=== PATIENT | male | born 1955 | race Caucasian/White ===

== ENCOUNTER 2018-10-21 00:33 | Emergency (ER) | payer OTHER ==
[2018-10-21] MEDS ORDERED: LIDOCAINE 2% W/EPI 1:200,000 MPF 20 ML VIAL IM ONE (01:14)
[2018-10-21] MEDS ORDERED: BUPIVACAINE 0.5% PF 10 ML VIAL ONE (01:14)
--- NOTE | 2018-10-21 03:29 | EDPHYS ---
Physician Documentation [facility] Name: Ovidio Echols Age: 63 yrs Sex: Male : 1955 Arrival Date: 10/21/2018 Time: 00:37 Bed 3 Private MD: LEONIDES TRAN ED Physician Wilfred Sanchez HPI: 10/21 01:15 This 63 yrs old Male presents to ER via Wheelchair with complaints of Head cp Injury With LOC-Adult. 01:15 The patient or guardian reports injury, a laceration, irregular. The complaints affect cp the top of head. Context of injury: The problem was sustained at home, resulted from a fall, from a standing position. Onset: The symptoms/episode began/occurred just prior to arrival. Associated signs and symptoms: Loss of consciousness: This patient experience a loss of consciousness, that was brief. Historical: - Allergies: 00:50 No Known Allergies; bb - Home Meds: 00:50 Lisinopril Oral [Active]; carvedilol oral oral [Active]; amlodipine oral [Active]; bb Flomax Oral [Active]; - PMHx: 00:50 Hypertension; CVA; BPH; bb - PSHx: 00:50 tumor removal; bb - Immunization history: Last tetanus immunization: unknown. - Social history:: Smoking status: Patient/guardian denies using tobacco. - Ebola Screening: : No symptoms or risks identified at this time. ROS: 01:20 Constitutional: Negative for body aches, chills, fever, poor PO intake. cp 01:20 Cardiovascular: Negative for chest pain. cp 01:20 Respiratory: Negative for cough, shortness of breath, wheezing. 01:20 Abdomen/GI: Negative for abdominal pain, vomiting. 01:20 Back: Negative for pain at rest, pain with movement. 01:20 Skin: Positive for laceration(s), of the face and scalp. 01:20 Neuro: Positive for loss of consciousness, Negative for altered mental status. 01:20 All other systems are negative. Exam: 01:30 Constitutional: The patient appears in no acute distress, alert, awake, cp non-diaphoretic, well developed, well nourished. 01:30 Head/face: Noted is a laceration(s), that is deep, that is linear, of the left frontal cp area and above and below right eye, swelling, that is mild, of the below right eye. 01:30 Eyes: Pupils: equal, round, and reactive to light and accomodation, Conjunctiva: normal. 01:30 ENT: External ear(s): are unremarkable, Ear canal(s): are normal, clear, TM's: dullness, bilaterally, Nose: abrasion, that is superficial, on the bridge of nose, bleeding, is not appreciated, Mouth: Lips: moist, Oral mucosa: moist, Posterior pharynx: Airway: no evidence of obstruction, patent. 01:30 Neck: C-spine: vertebral tenderness, is not appreciated, crepitus, is not appreciated, ROM/movement: is normal, is supple, without pain, no range of motions limitations, no nuchal rigidity. 01:30 Chest/axilla: Inspection: normal, Palpation: is normal, no crepitus, no tenderness. 01:30 Cardiovascular: Rate: bradycardic, Rhythm: regular. 01:30 Respiratory: the patient does not display signs of respiratory distress, Respirations: normal. 01:30 Abdomen/GI: Inspection: abdomen appears normal, Palpation: abdomen is soft and cp non-tender, in all quadrants. 01:30 Back: pain, is absent, ROM is normal. cp 01:30 Musculoskeletal/extremity: Exam is negative for decreased range of motion, deformity, injury. 01:30 Neuro: Orientation: no acute changes, per family, Mentation: no acute changes, per family. Vital Signs: 00:44 BP 169 / 103; Pulse 75; Resp 16 S; Temp 97.9(O); Pulse Ox 97% on R/A; Weight 113.4 kg bb (R); Height 6 ft. 0 in. (182.88 cm) (R); Pain 9/10; 01:30 BP 122 / 90; Pulse 59; Resp 17 S; Pulse Ox 95% on R/A; jd3 03:52 BP 140 / 96; Pulse 67; Resp 17 S; Pulse Ox 96% on R/A; jd3 00:44 Body Mass Index 33.91 (113.40 kg, 182.88 cm) bb Jesus Coma Score: 00:44 Eye Response: spontaneous(4). Verbal Response: oriented(5). Motor Response: obeys bb commands(6). Total: 15. 01:15 Eye Response: spontaneous(4). Verbal Response: oriented(5). Motor Response: obeys cp commands(6). Total: 15. 01:30 Eye Response: spontaneous(4). Verbal Response: oriented(5). Motor Response: obeys cp commands(6). Total: 15. Trauma Score (Adult): 00:44 Eye Response: spontaneous(1); Verbal Response: oriented(1); Motor Response: obeys bb commands(2); Systolic BP: > 89 mm Hg(4); Respiratory Rate: 10 to 29 per min(4); Bristol Score: 15; Trauma Score: 12 Laceration: 03:30 Wound Repair of 11cm ( 4.3in ) subcutaneous laceration to scalp. Linear shaped.. Distal cp neuro/vascular/tendon intact. Anesthesia: Local anesthetic administered with 10 mls of 2% lidocaine. Wound prep: Wound irrigation by me. Skin closed with 17 1-0 [place] using staple gun. Dressed with Bacitracin, 4x4's, Kerlix. Patient tolerated well. 03:30 Wound Repair of 7cm ( 2.8in ) subcutaneous laceration to above and below right eye. cp Irregularly shaped.. Distal neuro/vascular/tendon intact. Anesthesia: Wound infiltrated with 5 mls of 2% lidocaine. Wound prep: Simple cleansing by me. Skin closed with 14 5-0 Prolene using interrupted sutures and sterile technique. Dressed with Bacitracin. Patient tolerated well. MDM: 01:16 Patient medically screened. cp 01:30 Differential diagnosis: Contusion of head, face, Hematoma on head, face, Laceration of cp scalp, face, Intracranial bleed- Concussion cerebral contusion. 03:28 Data reviewed: vital signs, nurses notes, radiologic studies, CT scan, and as a result, cp I will discharge patient. 03:28 Counseling: I had a detailed discussion with the patient and/or guardian regarding: the cp historical points, exam findings, and any diagnostic results supporting the discharge/admit diagnosis, radiology results, the need for outpatient follow up, a family practitioner, to return to the emergency department if symptoms worsen or persist or if there are any questions or concerns that arise at home. Response to treatment: the patient's symptoms have markedly improved after treatment, and as a result, I will discharge patient. Special discussion: Based on the patient's history, exam and DX evaluation, there is no indication for emergent intervention or inpatient TX. It is understood by the patient/guardian that if the SXs persist or worsen they need to return immediately for re-evaluation. 10/21 00:58 Order name: CT Head C Spine cp 10/21 01:09 Order name: CT Facial Bones W/O Con rv 10/21 03:25 Order name: Wound dressing; Complete Time: 03:36 cp Administered Medications: 03:36 Drug: Hydrocodone-Acetaminophen (7.5 mg-325 mg) 1 tabs Route: PO; jd3 03:52 Follow up: Response: Medication administered at discharge. jd3 Disposition: 04:00 Chart complete. cp 05:57 Co-signature as Attending Physician, Wilfred Sanchez MD I agree with the assessment and kdr plan of care. Disposition: 10/21/18 03:28 Discharged to Home. Impression: Fall on same level from slipping, tripping and stumbling, Laceration without foreign body of scalp, Laceration without foreign body of other part of head - above and below right eye. - Condition is Stable. - Discharge Instructions: Head Injury, Adult, Laceration Care, Adult, Stitches, [place], or Adhesive Wound Closure. - Prescriptions for Keflex 500 mg Oral Capsule - take 1 capsule by ORAL route every 8 hours for 10 days; 30 capsule. - Medication Reconciliation Form, Thank You Letter, Antibiotic Education, Prescription Opioid Use form. - Follow up: Private Physician; When: 1 week; Reason: Staple/Suture removal. - Problem is new. - Symptoms have improved. Signatures: Dispatcher [employer] EDMS Wilfred Sanchez MD MD [facility] Jacquie Mora RN RN Dimitrios Mckay PA PA cp Davies, Jonathon, RN RN jd3 Corrections: (The following items were deleted from the chart) 03:55 03:28 10/21/2018 03:28 Discharged to Home. Impression: Fall on same level from jd3 slipping, tripping and stumbling; Laceration without foreign body of scalp; Laceration without foreign body of other part of head - above and below right eye. Condition is Stable. Forms are Medication Reconciliation Form, Thank You Letter, Antibiotic Education, Prescription Opioid Use. Follow up: Private Physician; When: 1 week; Reason: Staple/Suture removal. Problem is new. Symptoms have improved. cp
--- NOTE | 2018-10-21 03:29 | ER ---
Nurse's Notes [facility] Name: Ovidio Echols Age: 63 yrs Sex: Male : 1955 Arrival Date: 10/21/2018 Time: 00:37 Bed 3 Private MD: LEONIDES TRAN Diagnosis: Fall on same level from slipping, tripping and stumbling;Laceration without foreign body of scalp;Laceration without foreign body of other part of head-above and below right eye Presentation: 10/21 00:44 Presenting complaint: Patient states: he was in the bathroom and fell hitting his head bb and passed out for a few minutes. Care prior to arrival: None. Mechanism of Injury: Fall from standing position. Trauma event details: Injury occurred in the [facility], Injury occurred: at home. Injury occurred: October 21, 2018. 00:44 Acuity: MERA 2 bb 00:44 Method Of Arrival: Wheelchair bb 00:48 Transition of care: patient was not received from another setting of care. Onset of bb symptoms was October 21, 2018. Risk Assessment: Do you want to hurt yourself or someone else? Patient reports no desire to harm self or others. Initial Sepsis Screen: Does the patient meet any 2 criteria? No. Patient's initial sepsis screen is negative. Does the patient have a suspected source of infection? No. Patient's initial sepsis screen is negative. Trauma Activation: Alert Physician: ED Physician; Name: Laura; Notified At: 00:36; Arrived At: 00:36 Physician: General Surgeon; Name: ; Notified At: 00:36; Arrived At: Physician: Radiology; Name: Kami; Notified At: 00:36; Arrived At: 00:36 Physician: Respiratory; Name: ; Notified At: 00:36; Arrived At: Physician: Lab; Name: ; Notified At: 00:36; Arrived At: Historical: - Allergies: 00:50 No Known Allergies; bb - Home Meds: 00:50 Lisinopril Oral [Active]; carvedilol oral oral [Active]; amlodipine oral [Active]; bb Flomax Oral [Active]; - PMHx: 00:50 Hypertension; CVA; BPH; bb - PSHx: 00:50 tumor removal; bb - Immunization history: Last tetanus immunization: unknown. - Social history:: Smoking status: Patient/guardian denies using tobacco. - Ebola Screening: : No symptoms or risks identified at this time. Screenin:44 Abuse screen: Denies threats or abuse. Tuberculosis screening: No symptoms or risk bb factors identified. 00:51 Nutritional screening: No deficits noted. Fall Risk Fall in past 12 months (25 points). bb Secondary diagnosis (15 points) CVA, IV access (20 points). Ambulatory Aid- None/Bed Rest/Nurse Assist (0 pts). Gait- Impaired (20 pts.). Mental Status- Overestimates/Forgets Limitations (15 pts.). Total Amato Fall Scale indicates High Risk Score (45 or more points). Fall prevention measures have been instituted. Side Rails Up X 2 Placed Close to Nursing Station Family Present and informed to notify staff if the need to leave the bedside As available patient and family educated on Fall Prevention Program and Strategies. Primary Survey: 00:53 NO uncontrolled hemorrhage observed. A: The patient is alert. Airway: patent, No jd3 supplemental oxygen in use on arrival. Oral cavity: clear, Trachea midline. Breathing/Chest: Respiratory pattern: regular, Respiratory effort: spontaneous, unlabored, Breath sounds: clear, bilaterally. Chest inspection: symmetrical rise and fall of the chest. Circulation: Heart tones present. Pulses: palpable right radial artery and left radial artery. Skin color: pink, Skin temperature: warm. Disability Alert. Exposure/Environment: All clothing and personal items were removed. Forensic evidence collection is not deemed to be indicated at this time. Items placed in patient belonging bag. There is evidence of uncontrolled external hemorrhage. Provider notified immediately. Methods to control bleeding applied. Obvious injury(ies) are noted at this time: laceration noted to top of head and above right eye. hematoma noted to under right eye and top of head. A warming method has been applied: A warm blanket has been provided to the patient. 01:50 Reassessment Airway Airway Patent Oxygen No O2 Breathing/Chest Respiratory pattern jd3 Regular Respiratory effort Spontaneous Unlabored Chest inspection Symmetrical Circulation Pulses Palpable Color [place] Temperature Warm Disability Alert. Secondary Survey: 00:55 HEENT: Head Other laceration noted to top of head and above right eye. hematoma noted jd3 below right eye and on top of head. Gastrointestinal: Abdomen is soft, Bowel sounds present in all quadrants. Palpation No deficit noted. : No signs and/or symptoms were reported regarding the genitourinary system. Musculoskeletal: Circulation, motion, and sensation intact. Range of motion: intact in all extremities. Assessment: 00:45 General: Appears in no apparent distress. uncomfortable, Behavior is calm, cooperative, jd3 appropriate for age. Pain: Complains of pain in head Quality of pain is described as pressure, tender, throbbing. Neuro: Level of Consciousness is awake, alert, obeys commands, Oriented to person, place, time, situation, Reports headache a syncopal episode. Cardiovascular: Denies chest pain, shortness of breath, Heart tones S1 S2 present Capillary refill < 3 seconds Patient's skin is warm and dry. Respiratory: Airway is patent Respiratory effort is even, unlabored, Respiratory pattern is regular, symmetrical, Breath sounds are clear bilaterally. Denies cough, shortness of breath. GI: No signs and/or symptoms were reported involving the gastrointestinal system. Abdomen is round non-distended, Bowel sounds present X 4 quads. Abd is soft and non tender X 4 quads. Patient currently denies diarrhea, nausea, vomiting. : No signs and/or symptoms were reported regarding the genitourinary system. EENT: No signs and/or symptoms were reported regarding the EENT system. Derm: Skin is intact, Skin is dry, Skin is normal, Skin temperature is warm Wound noted left frontal area Wound is laceration about 10-15 cm in length to the top left side of head, open, moderate amount of bleeding. laceration about 5 cm above the right eye, with small amount of bleeding. hematoma noted under right eye. hematoma noted to the top left side of head. Musculoskeletal: Circulation, motion, and sensation intact. Range of motion: intact in all extremities. 01:40 Reassessment: Patient appears in no apparent distress at this time. No changes from jd3 previously documented assessment. Patient and/or family updated on plan of care and expected duration. Pain level reassessed. Patient is alert, oriented x 3, equal unlabored respirations, skin warm/dry/pink. 02:30 Reassessment: Patient appears in no apparent distress at this time. Patient and/or jd3 family updated on plan of care and expected duration. Pain level reassessed. Patient is alert, oriented x 3, equal unlabored respirations, skin warm/dry/pink. provider at bedside suturing and stapling. 03:49 Reassessment: Patient appears in no apparent distress at this time. Patient and/or jd3 family updated on plan of care and expected duration. Pain level reassessed. Patient is alert, oriented x 3, equal unlabored respirations, skin warm/dry/pink. reported understanding of discharge instructions. assisted pt to lobby with wheelchair to wait for ride. Patient states feeling better. Vital Signs: 00:44 BP 169 / 103; Pulse 75; Resp 16 S; Temp 97.9(O); Pulse Ox 97% on R/A; Weight 113.4 kg bb (R); Height 6 ft. 0 in. (182.88 cm) (R); Pain 9/10; 01:30 BP 122 / 90; Pulse 59; Resp 17 S; Pulse Ox 95% on R/A; jd3 03:52 BP 140 / 96; Pulse 67; Resp 17 S; Pulse Ox 96% on R/A; jd3 00:44 Body Mass Index 33.91 (113.40 kg, 182.88 cm) bb Union Coma Score: 00:44 Eye Response: spontaneous(4). Verbal Response: oriented(5). Motor Response: obeys bb commands(6). Total: 15. 01:15 Eye Response: spontaneous(4). Verbal Response: oriented(5). Motor Response: obeys cp commands(6). Total: 15. 01:30 Eye Response: spontaneous(4). Verbal Response: oriented(5). Motor Response: obeys cp commands(6). Total: 15. Trauma Score (Adult): 00:44 Eye Response: spontaneous(1); Verbal Response: oriented(1); Motor Response: obeys bb commands(2); Systolic BP: > 89 mm Hg(4); Respiratory Rate: 10 to 29 per min(4); Union Score: 15; Trauma Score: 12 ED Course: 00:37 Patient arrived in ED. am2 00:38 LEONIDES TRAN is Private Physician. am2 00:42 Kraig Sen RN is Primary Nurse. rv 00:44 Patient has correct armband on for positive identification. Placed in gown. Bed in low bb position. Call light in reach. Side rails up X2. Adult w/ patient. Patient maintains SpO2 saturation greater than 95% on room air. Family accompanied patient. 00:44 Patient maintains SpO2 saturation greater than 95% on room air. bb 00:46 Triage completed. bb 00:48 Dimitrios Hull PA is PHCP. cp 00:48 Wilfred Sanchez MD is Attending Physician. cp 00:50 Arm band placed on Patient placed in an exam room, on a stretcher, on pulse oximetry. bb 00:56 Thermoregulation: warm blanket given to patient. jd3 01:00 Inserted saline lock: 18 gauge in right forearm, using aseptic technique. Blood rv collected. 02:08 CT Head C Spine In Process Unspecified. EDMS 02:08 CT Facial Bones W/O Con In Process Unspecified. EDMS 02:30 Assist provider with laceration repair on top of head that was between 12.6 to 20 cm jd3 using mary. Set up tray. Performed by Dimitrios VELÁSQUEZ Dressed with 4X4s, Kerlix, Patient tolerated well. 02:30 Assist provider with laceration repair on right eye that was between 7.6 to 12.5 cm jd3 using sutures. Set up tray. Performed by Dimitrios VELÁSQUEZ Dressed with band aid, Patient tolerated well. 03:48 IV discontinued, intact, bleeding controlled, No redness/swelling at site. Pressure jd3 dressing applied. Administered Medications: 03:36 Drug: Hydrocodone-Acetaminophen (7.5 mg-325 mg) 1 tabs Route: PO; jd3 03:52 Follow up: Response: Medication administered at discharge. jd3 Intake: 00:44 PO: 0ml; Total: 0ml. bb Outcome: 03:28 Discharge ordered by . cp 03:48 Discharged to home via wheelchair, with family. jd3 03:48 Condition: stable 03:48 Discharge instructions given to patient, family, Instructed on discharge instructions, follow up and referral plans. medication usage, Demonstrated understanding of instructions, follow-up care, medications, Prescriptions given X 1. 03:49 Patient's length of stay in the Emergency Department was greater than 2 hours. waiting jd3 for results.Patient's length of stay extended due to 03:55 Patient left the ED. jd3 Signatures: Dispatcher [employer] EDJacquie Aranda RN RN Dimitrios Mckay PA PA cp Moreno, Amanda am2 Davies, Jonathon, RN RN jKraig Barillas RN RN rv Corrections: (The following items were deleted from the chart) 03:55 03:48 No provider procedures requiring assistance completed. jd3 jd3
[2018-10-21] MEDS ORDERED: HYDROCODONE/APAP 7.5/325 MG TAB ONE (03:49)
[2018-10-21 04:15] VITALS: TEMP 97.9
[2018-10-21 04:18] VITALS: BP 140/96; O2SAT 96
--- NOTE | 2018-10-23 11:55 | RAD REPORT ---
EXAM DESCRIPTION: CT - Head C Spine Mpr Wo Con - 10/21/2018 3:36 am CLINICAL HISTORY: The patient is 63 years old and is Male; fall, scalp laceration TECHNIQUE: Axial computed tomography images of the head/brain and cervical spine without intravenous contrast. Sagittal and coronal reformatted images were created and reviewed. This CT exam was pe rformed using one or more of the following dose reduction techniques: automated exposure control, a djustment of the mA and/or kV according to patient size, and/or use of iterative reconstruction techn ique. COMPARISON: No relevant prior studies available. FINDINGS: BRAIN: There is diffuse cerebral atrophy present, consistent with this patient's age. There is patchy hypoattenuation of the deep white matter which is non-specific, but most likely owing to chronic small vessel ischemic change in a patient of this age group. No intracranial hemorrhage , mass effect, or midline shift is seen. There are no extra-axial fluid collections. VENTRICLES: There is diffuse prominence of the ventricles, which is likely related to central at rophy. SKULL: No acute fracture. SINUSES: Unremarkable as visualized. No acute sinusitis. MASTOID AIR CELLS: Unremarkable as visualized. No mastoid effusion. VERTEBRAE: The vertebral body heights and alignment are maintained. No acute fracture. DISCS/SPINAL CANAL/NEURAL FORAMINA: There is multi-level intervertebral disc height loss. There are disc-osteophyte complexes at several levels, with associated mild spinal canal narrowing. There i s also facet hypertrophy and uncovertebral joint osteophytosis, with associated multilevel neural for aminal narrowing. SOFT TISSUES: Bifrontal scalp laceration/soft tissue swelling is present. LUNG APICES: The lung apices are clear. IMPRESSION: 1. No acute intracranial findings. 2. Spondylosis of the cervical spine without acute findings. Electronically signed by: Ade Sher MD 10/21/2018 2:27 AM CDT Due to temporary technical issues with the PACS/Fluency reporting system, reports are being signed by the in house radiologist as a courtesy to ensure prompt reporting. The interpreting radiologist is f ully responsible for the content of the report.
--- NOTE | 2018-10-23 11:55 | RAD REPORT ---
EXAM DESCRIPTION: CT - Facial Bones W/ Mpr - 10/21/2018 3:37 am CLINICAL HISTORY: The patient is 63 years old and is Male; TRAUMA TECHNIQUE: Axial computed tomography images of the face without intravenous contrast. Sagittal and coronal reformatted images were created and reviewed. This CT exam was performed using one or more of the following dose reduction techniques: automated exposure control, adjustment of the mA and/o r kV according to patient size, and/or use of iterative reconstruction technique. COMPARISON: No relevant prior studies available. FINDINGS: BONES/JOINTS: The orbital floors and ramirez are intact. The zygomatic arches and pteryg oid plates are intact. The visualized maxilla and mandible are intact. SOFT TISSUES: Right frontal scalp laceration is present. ORBITS: The globes, extraocular muscles, and optic nerve complexes are within normal limits. SINUSES: Left maxillary sinus mucus retention cyst is present. The visualized paranasal sinuse s are otherwise clear. No air-fluid levels. NASAL CAVITY/SEPTUM: The nasal bones are intact. IMPRESSION: Minimal right frontal scalp laceration without underlying acute bony abnormality. Electronically signed by: Ade Sher MD 10/21/2018 2:24 AM CDT Due to temporary technical issues with the PACS/Fluency reporting system, reports are being signed by the in house radiologist as a courtesy to ensure prompt reporting. The interpreting radiologist is f ully responsible for the content of the report.
== END 2018-10-21 03:55 | disposition home or self-care (01) ==
LOC: ER 00:33
PROC: 0JQ00ZZ Repair Scalp Subcutaneous Tissue and Fascia, Open Approach (ICD-10-PCS; principal; 2018-10-21)
PROC: 0JQ10ZZ Repair Face Subcutaneous Tissue and Fascia, Open Approach (ICD-10-PCS; 2018-10-21)
DX: S01.01XA Laceration without foreign body of scalp, initial encounter (principal); S01.81XA Laceration without foreign body of other part of head, initial encounter; W01.0XXA Fall on same level from slipping, tripping and stumbling without subsequent striking against object, initial encounter; Y93.89 Activity, other specified; Y92.009 Unspecified place in unspecified non-institutional (private) residence as the place of occurrence of the external cause; I10 Essential (primary) hypertension
CPT/HCPCS: 70450; 70486; 72125; 76377; 82962; 99284

== ENCOUNTER 2020-11-04 15:18 | Emergency (ER) | payer OTHER ==
--- OUTSIDE RECORDS SUMMARY | 2020-11-04 15:20 | XMS REPORT | Continuity of Care Document ---
:[address] [facility] t Address [address] [place] [address] Care Team Providers Name Role Phone Emmanuel MEDINA, Marguerite Attending Clinician Doctor Unassigned, Name Attending Clinician Unavailable Problems This patient has no known problems. Allergies, Adverse Reactions, Alerts This patient has no known allergies or adverse reactions. Medications This patient has no known medications. Procedures This patient has no known procedures. Encounters Start End Encounter Admission Attending Care Care Encounter Source Date/Time Date/Time Type Type Clinicians Facility Department ID 2020-11-04 2020-11-04 Telephone WILL Benitez [id number] 00:00:00 00:00:00 [facility] [id number] [place] [id number] [facility] [phone] nal 0[address] One 2020-09-26 2020-09-26 Telephone WILL Benitez [id number] 00:00:00 00:00:00 [facility] [id number] [place] [id number] Professio [phone] nal 044 [address] 2020-09-15 2020-09-15 Case WILL Benitez [id number] 00:00:00 00:00:00 Management [facility] [id number] [place] [id number] [facility] [phone] nal 044 [address] One 2020-09-10 2020-09-10 Orders Doctor NAVEEN [id number] 00:00:00 00:00:00 Only Unassigned, ASOT[place] [id number] [place] [id number] [id number] 2020-09-02 2020-09-02 Office WILL Benitez [id number] 09:24:19 [facility]:06:[facility] [employer] [id number] [place] [id number] [place] [phone] nal 044 [address] One Results This patient has no known results.
--- NOTE | 2020-11-04 15:57 | RAD REPORT ---
EXAM DESCRIPTION: CT - Head Brain Wo Cont - 11/04/2020 3:44 pm CLINICAL HISTORY: Dizziness COMPARISON: 2019 TECHNIQUE: Computed axial tomography of the head was obtained. IV contrast was not requested. All CT scans are performed using dose optimization technique as appropriate and may include automated exposure control or mA/KV adjustment according to patient size. FINDINGS: An intracranial bleed is not seen . The ventricles are normal in caliber. No extra-axial fluid collection is noted. Small old right thalamus lacunar infarction. Moderate to marked low-density areas within periventricular, deep and subcortical white matter likely represent ischemic changes secondary to small vessel disease. Fluid within the sinuses/ mastoids is not seen. IMPRESSION: No acute intracranial abnormality is seen. If patient's symptoms persist MRI of the bra in would be recommended.
[2020-11-04 17:17] LABS: Basophils % 0.9 % (0-1.3); Hematocrit 30.6 % (39.6-49.0); Lymphocytes % 32.2 % (15.3-44.8); MPV 8.5 fL (7.6-11.3); RBC Red Blood Cell Count 4.29 M/uL (4.33-5.43)
[2020-11-04 17:20] LABS: Protime INR 1.1
[2020-11-04] MEDS ORDERED: ASPIRIN 81 MG CHEWABLE TABLET ONE (17:30)
[2020-11-04] MEDS ORDERED: NA CHLORIDE 0.9% 1,000 ML ONE (17:31)
[2020-11-04] MEDS ORDERED: FOLIC ACID 5 MG/ML VIAL ONE (17:31)
[2020-11-04 17:37] LABS: ALT/SGPT 31 U/L (12-78); AST/SGOT 19 U/L (15-37); Albumin 3.7 g/dL (3.4-5.0); Alkaline Phosphatase 69 U/L (45-117); BUN Blood Urea Nitrogen 12 mg/dL (7-18); Bicarbonate 28 mmol/L (21-32); Bilirubin Direct 0.1 mg/dL (0-0.2); Bilirubin Total 0.5 mg/dL (0.2-1.0); Glucose Level 94 mg/dL (74-106); Magnesium 2.2 mg/dL (1.8-2.4); NT PRO-BNP 100 pg/mL (<125); Potassium 3.7 mmol/L (3.5-5.1); Sodium Level 139 mmol/L (136-145); Troponin (Emerg Dept Use Only) < 0.02 ng/mL (0.0-0.045)
--- NOTE | 2020-11-04 17:45 | RAD REPORT ---
EXAM DESCRIPTION: MRI - Brain Wo Cont - 11/04/2020 5:26 pm CLINICAL HISTORY: Dizziness COMPARISON: Head CT November 04, 2020 TECHNIQUE: Axial, sagittal, and coronal magnetic resonance images of the brain were obtained. FINDINGS: Moderate to marked signal within periventricular, deep and subcortical white matter probab ly ischemic changes secondary to small vessel disease. Small old lacunar infarct right basal ganglia Diffusion-weighted/ADC mapping reveals a 3 millimeter area of abnormal signal within the right cerebe llum The ventricles are normal caliber. An extra-axial fluid collection is not noted. Fluid within the sinuses/mastoids is not seen IMPRESSION: 3 millimeter acute infarct right cerebellum
--- NOTE | 2020-11-04 17:52 | RAD REPORT ---
EXAM DESCRIPTION: Albert Single View11/04/2020 5:11 pm CLINICAL HISTORY: cough COMPARISON: 2013 FINDINGS: The lungs appear clear of acute infiltrate. The heart is normal size IMPRESSION: No acute abnormalities displayed
--- NOTE | 2020-11-04 18:02 | EDPHYS ---
Physician Documentation [facility] Name: Ovidio Echols Age: 65 yrs Sex: Male : 1955 Arrival Date: 11/04/2020 Time: 15:23 Bed 15 Private MD: ED Physician Dimitrios Reddy HPI: 11/04 16:37 This 65 yrs old Male presents to ER via EMS with complaints of Dizziness. naima 16:37 The patient presents with dizziness, generalized weakness. Onset: The symptoms/episode naima began/occurred this morning, today. Context: occurred at home. Modifying factors: The symptoms are alleviated by nothing, the symptoms are aggravated by nothing. Associated signs and symptoms: The patient has no apparent associated signs or symptoms. Severity of symptoms: At their worst the symptoms were mild in the emergency department the symptoms have resolved. Patient's baseline: Neuro: alert and fully oriented. The patient has not experienced similar symptoms in the past. Historical: - Allergies: 15:26 No Known Allergies; iw - PMHx: 15:26 BPH; CVA; Hypertension; iw - Immunization history:: Adult Immunizations up to date. - Social history:: Smoking status: Patient denies any tobacco usage or history of. - Family history:: not pertinent. ROS: 16:37 Constitutional: Negative for fever, chills, and weight loss, Eyes: Negative for injury, naima pain, redness, and discharge, ENT: Negative for injury, pain, and discharge, Neck: Negative for injury, pain, and swelling, Cardiovascular: Negative for chest pain, palpitations, and edema, Respiratory: Negative for shortness of breath, cough, wheezing, and pleuritic chest pain, Abdomen/GI: Negative for abdominal pain, nausea, vomiting, diarrhea, and constipation, Back: Negative for injury and pain, : Negative for injury, bleeding, discharge, and swelling, MS/Extremity: Negative for injury and deformity, Skin: Negative for injury, rash, and discoloration, Psych: Negative for depression, anxiety, suicide ideation, homicidal ideation, and hallucinations, Allergy/Immunology: Negative for hives, rash, and allergies, Endocrine: Negative for neck swelling, polydipsia, polyuria, polyphagia, and marked weight changes. 16:37 Neuro: Positive for weakness. Exam: 16:37 Constitutional: This is a well developed, well nourished patient who is awake, alert, naima and in no acute distress. Head/Face: Normocephalic, atraumatic. Eyes: Pupils equal round and reactive to light, extra-ocular motions intact. Lids and lashes normal. Conjunctiva and sclera are non-icteric and not injected. Cornea within normal limits. Periorbital areas with no swelling, redness, or edema. ENT: Nares patent. No nasal discharge, no septal abnormalities noted. Tympanic membranes are normal and external auditory canals are clear. Oropharynx with no redness, swelling, or masses, exudates, or evidence of obstruction, uvula midline. Mucous membranes moist. Neck: Trachea midline, no thyromegaly or masses palpated, and no cervical lymphadenopathy. Supple, full range of motion without nuchal rigidity, or vertebral point tenderness. No Meningismus. Chest/axilla: Normal chest wall appearance and motion. Nontender with no deformity. No lesions are appreciated. Cardiovascular: Regular rate and rhythm with a normal S1 and S2. No gallops, murmurs, or rubs. Normal PMI, no JVD. No pulse deficits. Respiratory: Lungs have equal breath sounds bilaterally, clear to auscultation and percussion. No rales, rhonchi or wheezes noted. No increased work of breathing, no retractions or nasal flaring. Abdomen/GI: Soft, non-tender, with normal bowel sounds. No distension or tympany. No guarding or rebound. No evidence of tenderness throughout. Back: No spinal tenderness. No costovertebral tenderness. Full range of motion. Male : Normal genitalia with no discharge or lesions. Skin: Warm, dry with normal turgor. Normal color with no rashes, no lesions, and no evidence of cellulitis. MS/ Extremity: Pulses equal, no cyanosis. Neurovascular intact. Full, normal range of motion. Neuro: Awake and alert, GCS 15, oriented to person, place, time, and situation. Cranial nerves II-XII grossly intact. Motor strength 5/5 in all extremities. Sensory grossly intact. Cerebellar exam normal. Normal gait. Psych: Awake, alert, with orientation to person, place and time. Behavior, mood, and affect are within normal limits. 16:47 ECG was reviewed by the Attending Physician. [facility] Vital Signs: 15:26 BP 146 / 80; Pulse 85; Resp 16; Pulse Ox 97% on R/A; iw 16:23 BP 113 / 71; Pulse 64; Resp 18; Pulse Ox 96% on R/A; ld1 18:34 BP 125 / 88; Pulse 60; Resp 15; Pulse Ox 100% on R/A; ld1 20:11 BP 132 / 72; Pulse 72; Resp 18; Pulse Ox 99% on R/A; ld1 MDM: 16:18 Patient medically screened. naima 16:39 Differential diagnosis: cardiac arrhythmia, CVA, generalized weakness, head injury, naima hypovolemia, idiopathic dizziness, near-syncope. Data reviewed: vital signs, nurses notes, EMS record, lab test result(s), EKG. Data interpreted: groundwater monitoring technician: rate is 64 beats/min, rhythm is normal sinus rhythm, Pulse oximetry: on room air is 96 %. Test interpretation: by ED physician or midlevel provider: ECG, plain radiologic studies. Counseling: I had a detailed discussion with the patient and/or guardian regarding: the historical points, exam findings, and any diagnostic results supporting the discharge/admit diagnosis, lab results, radiology results. 11/04 16:36 Order name: Basic Metabolic Panel; Complete Time: 17:52 naima 11/04 16:36 Order name: CBC with Diff; Complete Time: 17:52 naima 11/04 16:36 Order name: LFT's; Complete Time: 17:52 naima 11/04 16:36 Order name: Magnesium; Complete Time: 17:52 naima 11/04 16:36 Order name: NT PRO-BNP; Complete Time: 17:52 naima 11/04 16:36 Order name: PT-INR; Complete Time: 17:52 naima 11/04 15:27 Order name: CT Head Brain wo Cont; Complete Time: 17:52 iw 11/04 16:36 Order name: Troponin (emerg Dept Use Only); Complete Time: 17:52 naima 11/04 16:36 Order name: XRAY Chest (1 view); Complete Time: 17:54 naima 11/04 17:19 Order name: Brain Wo Cont; Complete Time: 17:52 EDMS 11/04 17:56 Order name: COVID-19 : Document "Date of Symptom Onset" if Symptomatic. [facility] 11/04 16:36 Order name: EKG; Complete Time: 16:37 naima 11/04 16:36 Order name: Cardiac monitoring; Complete Time: 16:53 naima 11/04 16:36 Order name: EKG - Nurse/Tech; Complete Time: 17:37 naima 11/04 16:36 Order name: IV Saline Lock; Complete Time: 17:20 naima 11/04 16:36 Order name: Labs collected and sent; Complete Time: 17:20 naima 11/04 16:36 Order name: O2 Per Protocol; Complete Time: 16:53 naima 11/04 16:36 Order name: O2 Sat Monitoring; Complete Time: 16:53 [facility] EC:47 Rate is 69 beats/min. Rhythm is regular. QRS [place] is Normal. DC interval is normal. QRS naima interval is normal. QT interval is normal. No Q waves. T waves are Normal. No ST changes noted. Clinical impression: Normal ECG and No evidence of ischemia. Interpreted by me. Reviewed by me. Administered Medications: 17:37 Drug: NS 0.9% 1000 ml Route: IV; Rate: 1 bolus; Site: right antecubital; ld1 17:37 Drug: Aspirin Chewable Tablet 324 mg Route: PO; ld1 17:37 Drug: foLIC Acid 1 mg Route: IVPB; Site: right antecubital; ld1 18:18 Drug: PlaVIX (clopidogrel) 75 mg Route: PO; ld1 Disposition Summary: 11/04/20 18:18 Transfer Ordered Transfer [facility]: [facility] naima Reason: Higher level of care naima Condition: Stable(11/04/20 18:18) naima Problem: new(11/04/20 18:18) naima Symptoms: have improved(11/04/20 18:18) naima Accepting Physician: dr evans, neuro tele(11/04/20 20:14) ld1 Diagnosis - Cerebral infarction, unspecified(11/04/20 18:18) naima - Cerebellar stroke syndrome naima Forms: - Medication Reconciliation Form naima - SBAR form naima Signatures: Dispatcher [employer] EDDimitrios Cole MD MD cha Williams, Irene, RN RN iw Faby Shelton RN RN ld1 Corrections: (The following items were deleted from the chart) 17:19 16:37 MR STROKE PROTOCOL+MRI.RAD.BRZ ordered. [facility] EDAZ 18:15 18:01 Inpatient Admission naima naima 18:15 18:01 Prezas, Efren naima naima 18:15 18:01 Telemetry/MedSurg (Inpatient) naima naima 18:15 18:01 Fair naima naima 18:15 18:01 new naima naima 18:15 18:01 have improved naima naima 18:15 18:01 Standard naima naima 18:15 18:01 naima naima 18:15 18:01 Cerebral infarction due to unspecified occlusion or stenosis of right cerebellar naima artery naima 18:15 18:01 Cerebral infarction, unspecified naima naima 19:04 17:57 CORONAVIRUS ordered. EDMS EDMS 20:14 18:18 dr evans, neuro tele naima ld1
--- NOTE | 2020-11-04 18:02 | ER ---
Nurse's Notes [facility] Name: Ovidio Echols Age: 65 yrs Sex: Male : 1955 Arrival Date: 11/04/2020 Time: 15:23 Bed 15 Private MD: Diagnosis: Cerebral infarction, unspecified;Cerebellar stroke syndrome Presentation: 11/04 15:25 Chief complaint: Patient states: dizziness past couple days, weakness in left hand for iw a couple days , hx of CVA in 1998. Coronavirus screen: At this time, the client does not indicate any symptoms associated with coronavirus-19. Ebola Screen: Patient negative for fever greater than or equal to 101.5 degrees Fahrenheit, and additional compatible Ebola Virus Disease symptoms Patient denies exposure to infectious person. Patient denies travel to an Ebola-affected area in the 21 days before illness onset. No symptoms or risks identified at this time. Initial Sepsis Screen: Does the patient meet any 2 criteria? No. Patient's initial sepsis screen is negative. Does the patient have a suspected source of infection? No. Patient's initial sepsis screen is negative. Risk Assessment: Do you want to hurt yourself or someone else? Patient reports no desire to harm self or others. Onset of symptoms was November 02, 2020. 15:25 Method Of Arrival: EMS: [facility] iw 15:25 Acuity: MERA 3 iw Historical: - Allergies: 15:26 No Known Allergies; iw - PMHx: 15:26 BPH; CVA; Hypertension; iw - Immunization history:: Adult Immunizations up to date. - Social history:: Smoking status: Patient denies any tobacco usage or history of. - Family history:: not pertinent. Screenin:23 Abuse screen: Denies threats or abuse. Denies injuries from another. Nutritional ld1 screening: No deficits noted. Tuberculosis screening: No symptoms or risk factors identified. Fall Risk None identified. Assessment: 16:23 General: Appears in no apparent distress. comfortable, Behavior is calm, cooperative, ld1 appropriate for age. Pain: Denies pain. Neuro: Level of Consciousness is awake, alert, obeys commands, Oriented to person, place, time, situation, Reports dizziness. Cardiovascular: Capillary refill < 3 seconds Patient's skin is warm and dry. Respiratory: Airway is patent Respiratory effort is even, unlabored, Respiratory pattern is regular, symmetrical. GI: Abdomen is flat, non-distended. : No signs and/or symptoms were reported regarding the genitourinary system. EENT: No signs and/or symptoms were reported regarding the EENT system. Derm: No signs and/or symptoms reported regarding the dermatologic system. Musculoskeletal: No signs and/or symptoms reported regarding the musculoskeletal system. 18:34 Reassessment: Patient appears in no apparent distress at this time. No changes from ld1 previously documented assessment. Patient and/or family updated on plan of care and expected duration. Pain level reassessed. Patient is alert, oriented x 3, equal unlabored respirations, skin warm/dry/pink. 20:11 Reassessment: Patient appears in no apparent distress at this time. No changes from ld1 previously documented assessment. Patient and/or family updated on plan of care and expected duration. Pain level reassessed. Patient is alert, oriented x 3, equal unlabored respirations, skin warm/dry/pink. Vital Signs: 15:26 BP 146 / 80; Pulse 85; Resp 16; Pulse Ox 97% on R/A; iw 16:23 BP 113 / 71; Pulse 64; Resp 18; Pulse Ox 96% on R/A; ld1 18:34 BP 125 / 88; Pulse 60; Resp 15; Pulse Ox 100% on R/A; ld1 20:11 BP 132 / 72; Pulse 72; Resp 18; Pulse Ox 99% on R/A; ld1 ED Course: 15:23 Patient arrived in ED. iw 15:26 Triage completed. iw 15:26 Arm band placed on. iw 15:43 CT Head Brain wo Cont In Process Unspecified. EDMS 16:18 Dimitrios Reddy MD is Attending Physician. naima 16:23 Patient has correct armband on for positive identification. Bed in low position. Call ld1 light in reach. Side rails up X2. youth nutritional monitor on. Pulse ox on. NIBP on. Door closed. Noise minimized. Warm blanket given. 16:23 No provider procedures requiring assistance completed. ld1 16:32 Faby Shelton, CHANEL is Primary Nurse. ld1 17:00 Initial lab(s) drawn, by me, sent to lab. Inserted saline lock: 20 gauge in right kj1 antecubital area, using aseptic technique. Blood collected. 17:11 XRAY Chest (1 view) In Process Unspecified. EDMS 17:21 Brain Wo Cont In Process Unspecified. EDMS 17:57 Efren Blackman DO is Hospitalizing Provider. [facility] 17:57 initiated transfer to [facility], no beds at this time, 68 pt waiting on bd beds,pt will be put on the waiting list. per Lindsey. 17:57 COVID-19 : Document "Date of Symptom Onset" if Symptomatic. Sent. [facility] 18:55 pt accepted in transfer by Dr Aguilar to [facility], admin approval given by Lindsey Mojica. 20:13 Patient transferred, IV remains in place. intact, bleeding controlled, No ld1 redness/swelling at site. Administered Medications: 17:37 Drug: NS 0.9% 1000 ml Route: IV; Rate: 1 bolus; Site: right antecubital; ld1 17:37 Drug: Aspirin Chewable Tablet 324 mg Route: PO; ld1 17:37 Drug: foLIC Acid 1 mg Route: IVPB; Site: right antecubital; ld1 18:18 Drug: PlaVIX (clopidogrel) 75 mg Route: PO; ld1 Outcome: 18:01 Decision to Hospitalize by Provider. naima 18:18 ER care complete, transfer ordered by . naima 20:12 Transferred by ground EMS ld1 20:12 Condition: stable 20:12 Instructed on the need for transfer. 20:14 Patient left the ED. ld1 Signatures: Dispatcher [employer] EDMS Anika Mercado Corey, MD MD cha Williams, Irene, Natalia Ayers RN [facility] Lainey Daly Faby Shelton RN RN ld1
[2020-11-04] MEDS ORDERED: CLOPIDOGREL 75 MG TABLET ONE (18:32)
[2020-11-04 21:05] VITALS: BP 132/72; O2SAT 99
--- NOTE | 2020-11-05 17:00 | EKG ---
Test Date: 2020-11-04 Test Time: 17:42:20 Curatorial Assistant: IRINEO MEASUREMENT RESULTS: Intervals: Rate: 79 NH: 178 QRSD: 90 QT: 410 QTc: 470 [place]: P: 38 NH: 178 QRS: 34 T: 52 INTERPRETIVE STATEMENTS: Sinus rhythm with premature atrial complexes with aberrant conduction Otherwise normal ECG No previous ECG available for comparison Electronically Signed On 11-05-20 16:58:52 CDT by Hu Herrera
== END 2020-11-04 20:14 | disposition short-term general hospital (02) ==
LOC: ER 15:18
DX: I63.9 Cerebral infarction, unspecified (principal); G46.4 Cerebellar stroke syndrome; I10 Essential (primary) hypertension; Z20.822 Contact with and (suspected) exposure to COVID-19
CPT/HCPCS: 85025; 80048; 36415; 83735; 85610; 80076; 84484; 83880; 70450; 71045; 70551; U0003; J7030; 93005

== ENCOUNTER 2021-02-02 12:48 | Observation (INO) | payer OTHER ==
[2021-02-02 13:51] LABS: Protime INR 1.1
[2021-02-02 13:56] LABS: Absolute Lymphocytes (CBC) 2.3 K/uL (0.7-4.9); MPV 8.9 fL (7.6-11.3); RBC Red Blood Cell Count 5.45 M/uL (4.33-5.43)
--- NOTE | 2021-02-02 14:02 | RAD REPORT ---
EXAM DESCRIPTION: RAD - Chest Single View - 02/02/2021 1:53 pm CLINICAL HISTORY: weakness COMPARISON: Chest Single View dated 11/04/2020; CHEST SINGLE VIEW dated 12/12/2013 FINDINGS: Lines: None. Lungs: No evidence of edema or pneumonia. Pleural: No significant pleural effusions or pneumothorax. Cardiac: The heart size is within normal limits. Bones: No acute fractures. Other: Surgical clips overlie the right upper chest wall. IMPRESSION: No acute cardiopulmonary disease.
[2021-02-02 14:30] LABS: ALT/SGPT 23 U/L (12-78); AST/SGOT 20 U/L (15-37); Albumin 3.6 g/dL (3.4-5.0); Alkaline Phosphatase 77 U/L (45-117); BUN Blood Urea Nitrogen 17 mg/dL (7-18); Bicarbonate 29 mmol/L (21-32); Bilirubin Direct 0.1 mg/dL (0-0.2); Bilirubin Total 0.4 mg/dL (0.2-1.0); Glucose Level 89 mg/dL (74-106); Magnesium 2.3 mg/dL (1.8-2.4); NT PRO-BNP 69 pg/mL (<125); Potassium 3.9 mmol/L (3.5-5.1); Protein, Total 7.6 g/dL (6.4-8.2); Sodium Level 140 mmol/L (136-145); Troponin (Emerg Dept Use Only) < 0.02 ng/mL (0.0-0.045)
[2021-02-02] MEDS ORDERED: NA CHLORIDE 0.9% 1,000 ML ONE (14:31)
--- NOTE | 2021-02-02 15:21 | RAD REPORT ---
EXAM DESCRIPTION: CT - Head angio - 02/02/2021 3:02 pm CLINICAL HISTORY: DIZZINESS COMPARISON: Head Brain Wo Cont dated 02/02/2021; Head Brain Wo Cont dated 11/04/2020 TECHNIQUE: CT angiography of the head was performed with MIPs. All CT scans are performed using dose optimization technique as appropriate and may include automated exposure control or mA/KV adjustment according to patient size. FINDINGS: Anterior circulation: High-grade focal stenosis of the right M2 segment of the middle cerebral artery. This is of uncertain acuity. The left MCA and ACAs are patent. At least moderate stenosis of the right cavernous carotid artery. Posterior circulation: No aneurysm or large vessel occlusion. Moderate stenosis of the right P2 segment of the posterior cer ebral artery. No arteriovenous malformation identified. Left dominant vertebral artery. Both vertebra l arteries have calcified plaque. 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 There is also a moderate right P2 segment [employer]IST stenosis. The left-sided circulation is all intact.
--- NOTE | 2021-02-02 15:25 | RAD REPORT ---
EXAM DESCRIPTION: CT - Neck Angio - 02/02/2021 3:02 pm CLINICAL HISTORY: dizziness COMPARISON: Head C Spine Mpr Wo Con dated 10/21/2018; SOFT TISSUE NECK W CONTRAST dated 12/12/2013 TECHNIQUE: CT angiography of the neck vessels was performed with MIPs. All CT scans are performed using dose optimization technique as appropriate and may include automated exposure control or mA/KV adjustment according to patient size. FINDINGS: The proximal left common carotid artery was not included in the field of view. The vessels are otherwise patent. Left dominant vertebral artery. No stenosis or dissection. Calcified plaque of both carotid bulbs. No stenosis identified. IMPRESSION: No hemodynamically significant stenosis or dissection is identified. Calcified plaque is noted. Note that the proximal left common carotid artery was not included in the field of view.
--- NOTE | 2021-02-02 15:26 | RAD REPORT ---
EXAM DESCRIPTION: CT - Head Brain Wo Cont - 02/02/2021 3:02 pm CLINICAL HISTORY: DIZZINESS COMPARISON: Head Brain Wo Cont dated 11/04/2020; Facial Bones W/ Mpr dated 10/21/2018; Brain Wo Cont da zenon 11/04/2020 TECHNIQUE: All CT scans are performed using dose optimization technique as appropriate and may inclu de automated exposure control or mA/KV adjustment according to patient size. FINDINGS: No intracranial hemorrhage, hydrocephalus or extra-axial fluid collection.No areas of brai n edema or evidence of midline shift. Chronic small vessel ischemic changes. Probably remote bilatera l basal ganglia and zuniga radiata infarcts. The paranasal sinuses and mastoids are clear. The calvarium is intact. IMPRESSION: No acute intracranial abnormality. Probably remote bilateral zuniga radiata advanced ga nglia lacunar infarct. This can be confirmed with MRI.
--- NOTE | 2021-02-02 16:21 | EDPHYS ---
Physician Documentation [facility] Name: Ovidio Echols Age: 65 yrs Sex: Male : 1955 Arrival Date: 02/02/2021 Time: 12:53 Bed 3 Private MD: Colby Menjivar T ED Physician Dimitrios Reddy HPI: 02/02 13:25 This 65 yrs old Male presents to ER via Wheelchair with complaints of Low BP, jmm Dizziness. 13:25 The patient presents with dizziness. Onset: The symptoms/episode began/occurred jmm acutely, this morning. Modifying factors: The symptoms are alleviated by nothing, the symptoms are aggravated by nothing. Associated signs and symptoms: Pertinent negatives: chest pain. This is a 65 year old male with a history of CVA, bells paly, hlp, htn that presents to the ED with complaints of dizziness, low blood pressure according to the . states that the blood pressure was 60/40 systolic when the patient became symptomatic. States the patient will occasionally will become dizzy. Patient denies chest pain, denies unilateral weakness.. Historical: - Allergies: 13:21 No Known Allergies; iw - Home Meds: 19:56 amlodipine oral [Active]; carvedilol Oral [Active]; Flomax Oral [Active]; lisinopril df1 Oral [Active]; - PMHx: 13:21 BPH; CVA; Hypertension; Hypercholesterolemia; iw - Immunization history:: Adult Immunizations Client reports receiving the 2nd dose of the Covid vaccine. - Social history:: Smoking status: Patient denies any tobacco usage or history of. ROS: 13:25 Constitutional: Negative for fever, chills, and weight loss, Cardiovascular: Negative jmm for chest pain, palpitations, and edema, Respiratory: Negative for shortness of breath, cough, wheezing, and pleuritic chest pain. 13:25 Neuro: Positive for dizziness. 13:25 All other systems are negative. Exam: 13:25 Constitutional: This is a well developed, well nourished patient who is awake, alert, jmm and in no acute distress. 13:25 Eyes: EOMI, no conjunctival erythema appreciated ENT: Moist Mucus Membranes Neck: Trachea midline, Supple Chest/axilla: Normal chest wall appearance and motion. Cardiovascular: Regular rate and rhythm. No edema appreciated Respiratory: Normal respirations, no respiratory distress appreciated Abdomen/GI: Non distended, soft Back: Normal ROM Skin: General appearance color normal 13:25 Head/face: Noted is Left-sided facial droop. 13:25 Musculoskeletal/extremity: ROM: intact in all extremities. 13:25 Neuro: Orientation: is normal, Mentation: is normal, Memory: is normal, Cranial nerves: facial droop noted on left. 13:25 Psych: Behavior/mood is pleasant, cooperative. 18:29 ECG was reviewed by the Attending Physician. [facility] Vital Signs: 13:20 BP 118 / 89; Pulse 59; Resp 16; Pulse Ox 100% on R/A; Weight 102.06 kg; Height 5 ft. 9 iw in. (175.26 cm); Pain 0/10; 13:44 BP 121 / 68; Pulse 53; Resp 17; Pulse Ox 100% on R/A; jt3 14:44 BP 135 / 81; Pulse 57; Resp 16; Pulse Ox 100% on R/A; jt3 15:35 BP 159 / 90; Pulse 58; Resp 17; Pulse Ox 100% on R/A; mh5 16:42 BP 145 / 87; Pulse 96; Resp 18; Pulse Ox 100% on R/A; jt3 18:36 BP 149 / 73; Pulse 65; Resp 17; Pulse Ox 100% on R/A; jt3 19:57 BP 154 / 92; Pulse 68; Resp 17; Temp 98.6; Pulse Ox 100% ; Pain 0/10; df1 13:20 Body Mass Index 33.23 (102.06 kg, 175.26 cm) iw MDM: 13:35 Patient medically screened. [facility] 16:18 Data reviewed: vital signs, nurses notes. Counseling: I had a detailed discussion with kailey the patient and/or guardian regarding: the historical points, exam findings, and any diagnostic results supporting the discharge/admit diagnosis, lab results, radiology results, the need for further work-up and treatment in the hospital, the need to transfer to another facility. ED course: I initially discussed the patient along with CTA results with Dr. Blackwood whom recommended transfer for four-vessel angiogram and possible intra-arterial thrombolysis. I then discussed the case with neurology from [facility] in the [facility] whom stated that there would be no acute intervention based on the radiology report. They did recommend that the patient be obscured in the ED due to reports of low blood pressure and dizziness and further evaluation for a subacute stroke.. 16:18 ED course: Patient does not meet criteria for TPA, has had a CVA less than 3 months ago.[facility] 02/02 13:25 Order name: Basic Metabolic Panel [facility] 02/02 13:25 Order name: CBC with Diff; Complete Time: 17:44 [facility] 02/02 13:25 Order name: LFT's [facility] 02/02 13:25 Order name: Magnesium [facility] 02/02 13:25 Order name: NT PRO-BNP [facility] 02/02 13:25 Order name: PT-INR; Complete Time: 14:11 [facility] 02/02 13:25 Order name: Troponin (emerg Dept Use Only) [facility] 02/02 13:25 Order name: XRAY Chest (1 view); Complete Time: 14:11 [facility] 02/02 13:38 Order name: CT Head Angio; Complete Time: 15:33 [facility] 02/02 13:38 Order name: CT Neck Angio; Complete Time: 15:33 [facility] 02/02 14:21 Order name: CT Head Brain wo Cont; Complete Time: 15:33 [facility] 02/02 16:24 Order name: SARS-COV-2 RT PCR; Complete Time: 17:25 [facility] 02/02 17:41 Order name: CBC Smear Scan; Complete Time: 17:44 [facility] 02/02 13:25 Order name: EKG; Complete Time: 13:25 [facility] 02/02 13:25 Order name: Cardiac monitoring; Complete Time: 13:43 [facility] 02/02 13:25 Order name: EKG - Nurse/Tech; Complete Time: 13:54 [facility] 02/02 13:25 Order name: IV Saline Lock; Complete Time: 13:43 [facility] 02/02 13:25 Order name: Labs collected and sent; Complete Time: 13:43 [facility] 02/02 13:25 Order name: O2 Per Protocol; Complete Time: 13:43 [facility] 02/02 13:25 Order name: O2 Sat Monitoring; Complete Time: 13:43 [facility] 02/02 17:40 Order name: CONS Physician Consult [facility] 02/02 17:48 Order name: Soft and Bite Sized-6 (Chopped) EDMS EC:29 Rate is 58 beats/min. Rhythm is regular. QRS [place] is Normal. [place] interval is normal. QRS naima interval is normal. QT interval is normal. No Q waves. T waves are Normal. No ST changes noted. Clinical impression: NSR w/ Non-specific ST/T Changes and No evidence of ischemia. Interpreted by me. Reviewed by me. Administered Medications: 13:43 Drug: NS 0.9% 1000 ml Route: IV; Rate: 1 bolus; Site: right antecubital; jt3 14:44 Follow up: IV Status: Completed infusion; IV Intake: 1000ml jt3 16:37 Not Given (Physician Discretion): foLIC Acid 1 mg IVPB once iw 16:42 Drug: Aspirin Chewable Tablet 324 mg Route: PO; jt3 18:37 Follow up: Response: No adverse reaction jt3 16:42 Drug: foLIC Acid 1 mg Route: PO; jt3 18:37 Follow up: Response: No adverse reaction jt3 Disposition: 18:30 Co-signature as Attending Physician, Dimitrios Reddy MD I agree with the assessment and naima plan of care. Disposition Summary: 02/02/21 16:21 Hospitalization Ordered Hospitalization Status: Inpatient Admission [facility] Provider: Thai Fulton Condition: Stable jmm Problem: new jmm Symptoms: have improved jm Bed/Room Type: Standard [facility] Location: Telemetry/MedSurg (Inpatient)(02/02/21 18:09) bd Room Assignment: 218(02/02/21 18:09) bd Diagnosis - Cerebral infarction, unspecified [facility] Forms: - Medication Reconciliation Form jmm - SBAR form jmm Signatures: Dispatcher [employer] EDNC Anika Mercado Corey, MD MD cha Mickail, Joel, PA PA m Sandra Centeno, Beth Rudd RN df1 Andrez Denise RN RN jt3 Corrections: (The following items were deleted from the chart) 16:24 15:49 CORONAVIRUS+Z ordered. EDNC EDMS 17:06 16:21 Telemetry/MedSurg (Inpatient) [facility] bd 17:06 16:21 [facility] bd 18:09 17:06 [facility] ER HOLD bd bd 18:09 17:06 ERHOLD- bd bd
--- NOTE | 2021-02-02 16:21 | ER ---
Nurse's Notes [facility] Name: Ovidio Echols Age: 65 yrs Sex: Male : 1955 Arrival Date: 02/02/2021 Time: 12:53 Bed 3 Private MD: Colby Menjivar T Diagnosis: Cerebral infarction, unspecified Presentation: 02/02 13:20 Chief complaint: Patient states: got a low BP reading at home 60s/40s, was feeling iw dizzy and light headed, now feels better, was checked out by EMS. Coronavirus screen: At this time, the client does not indicate any symptoms associated with coronavirus-19. Ebola Screen: Patient negative for fever greater than or equal to 101.5 degrees Fahrenheit, and additional compatible Ebola Virus Disease symptoms Patient denies exposure to infectious person. Patient denies travel to an Ebola-affected area in the 21 days before illness onset. No symptoms or risks identified at this time. Initial Sepsis Screen: Does the patient meet any 2 criteria? No. Patient's initial sepsis screen is negative. Does the patient have a suspected source of infection? No. Patient's initial sepsis screen is negative. Risk Assessment: Do you want to hurt yourself or someone else? Patient reports no desire to harm self or others. Onset of symptoms was February 02, 2021. 13:20 Method Of Arrival: Wheelchair iw 13:20 Acuity: MERA 3 iw Historical: - Allergies: 13:21 No Known Allergies; iw - Home Meds: 19:56 amlodipine oral [Active]; carvedilol Oral [Active]; Flomax Oral [Active]; lisinopril df1 Oral [Active]; - PMHx: 13:21 BPH; CVA; Hypertension; Hypercholesterolemia; iw - Immunization history:: Adult Immunizations Client reports receiving the 2nd dose of the Covid vaccine. - Social history:: Smoking status: Patient denies any tobacco usage or history of. Screenin:28 Abuse screen: Denies threats or abuse. Denies injuries from another. Nutritional jt3 screening: No deficits noted. Tuberculosis screening: No symptoms or risk factors identified. Fall Risk None identified. Assessment: 13:28 General: Appears in no apparent distress. Behavior is calm, cooperative. Pain: Denies jt3 pain. Cardiovascular: Reports lightheadedness, since Pt. had a dizzy this morning, but this has since resolved. Pt. was placed on the heart monitor. Sinus rhythm. Per , patient is talking at his baseline. Alert and oriented x4. Rhythm is sinus rhythm. Respiratory: No deficits noted. Vital Signs: 13:20 BP 118 / 89; Pulse 59; Resp 16; Pulse Ox 100% on R/A; Weight 102.06 kg; Height 5 ft. 9 iw in. (175.26 cm); Pain 0/10; 13:44 BP 121 / 68; Pulse 53; Resp 17; Pulse Ox 100% on R/A; jt3 14:44 BP 135 / 81; Pulse 57; Resp 16; Pulse Ox 100% on R/A; jt3 15:35 BP 159 / 90; Pulse 58; Resp 17; Pulse Ox 100% on R/A; mh5 16:42 BP 145 / 87; Pulse 96; Resp 18; Pulse Ox 100% on R/A; jt3 18:36 BP 149 / 73; Pulse 65; Resp 17; Pulse Ox 100% on R/A; jt3 19:57 BP 154 / 92; Pulse 68; Resp 17; Temp 98.6; Pulse Ox 100% ; Pain 0/10; df1 13:20 Body Mass Index 33.23 (102.06 kg, 175.26 cm) iw ED Course: 12:53 Patient arrived in ED. mr 12:54 Colby Menjivar MD is Private Physician. mr 13:15 Andrez Denise, RN is Primary Nurse. jt3 13:21 Triage completed. iw 13:22 Arm band placed on. iw 13:24 Jacek Funk PA is PHCP. jmm 13:24 Dimitrios Reddy MD is Attending Physician. jmm 13:28 Patient has correct armband on for positive identification. Bed in low position. Call jt3 light in reach. Side rails up X2. 13:28 No provider procedures requiring assistance completed. jt3 13:53 XRAY Chest (1 view) In Process Unspecified. EDMS 15:02 CT Head Angio In Process Unspecified. EDMS 15:02 CT Neck Angio In Process Unspecified. EDMS 15:02 CT Head Brain wo Cont In Process Unspecified. EDMS 16:02 initiated transfer to [facility]. bd 16:06 transfer cancelled by Jacek VELÁSQUEZ. bd 16:20 Thai Fulton MD is Hospitalizing Provider. [facility] 19:57 Patient admitted, IV remains in place. df1 Administered Medications: 13:43 Drug: NS 0.9% 1000 ml Route: IV; Rate: 1 bolus; Site: right antecubital; jt3 14:44 Follow up: IV Status: Completed infusion; IV Intake: 1000ml jt3 16:37 Not Given (Physician Discretion): foLIC Acid 1 mg IVPB once iw 16:42 Drug: Aspirin Chewable Tablet 324 mg Route: PO; jt3 18:37 Follow up: Response: No adverse reaction jt3 16:42 Drug: foLIC Acid 1 mg Route: PO; jt3 18:37 Follow up: Response: No adverse reaction jt3 Intake: 14:44 IV: 1000ml; Total: 1000ml. jt3 Output: 16:48 Urine: 700ml; Total: 700ml. jt3 Outcome: 16:21 Decision to Hospitalize by Provider. [facility] 19:56 Admitted to Med/surg accompanied by tech, via wheelchair, room 218, with chart, Report df1 called to floor RN 19:56 Condition: stable 19:56 Instructed on the need for admit. 20:07 Patient left the ED. bs2 Signatures: Dispatcher [employer] EDMS Anika Mercado Joel, PA PA [facility] BenitezNatalee Sandra Centeno, RN Natalia Ayers Bridget RN RN bs2 Beth Stephens df1 Andrez Denise RN RN jt3
[2021-02-02] MEDS ORDERED: ASPIRIN 81 MG CHEWABLE TABLET ONE (17:24)
[2021-02-02] MEDS ORDERED: FOLIC ACID 1 MG TABLET ONE (17:32)
[2021-02-02 17:41] LABS: Anisocytosis 1+; Blood Morphology Comment NOTED (NOT SEEN); Platelet Estimate ADEQ; Poikilocytosis 2+; White Blood Cell Scan OK (OK)
--- NOTE | 2021-02-02 17:47 | P.HP ---
Certification for Inpatient Patient admitted to: Observation With expected LOS: <2 Midnights Practitioner: I am a practitioner with admitting privileges, knowledge of patient current condition, hospital course, and medical plan of care. Services: Services provided to patient in accordance with Admission requirements found in Title 42 Section 412.3 of the Code of Federal Regulations Patient History Date of Service: 02/02/21 Reason for admission: Severe hypotension, symptomatic History of Present Illness: 65-year-old male, PMH: Prior CVAs, BPH, hypertension, hypercholesterolemia. Presents to ED a few hours after hypotensive/dizziness episode. Patient states he was sitting at home when he suddenly became dizzy. He checked his blood pressure and noted that it was 60s/40s, which is abnormal for him. He states he typically has high blood pressure and takes 4 medications, no recent change in medications. This is the second episode in the last month and that he had dizzi ness like this. He denies loss of consciousness. He denies any new numbness/tingling/weakness. They called EMS, on arrival, EMS recheck blood pressure and noted his 90s/50s. He was brought to the ED. Here his blood pressure was noted to be 1 teens/70s. Heart rate: 5360s, afebrile. He denies any recent illness, was in his usual state of health up until this occurred. He states after his first episode he was sent to [place] where he was there for a few days and was told nothing was found. In the ED, CTA noted moderate stenosis of the right cavernous ICA, high-grade focal stenosis of the right M2 segment of the middle cerebral artery. Also moderate right P2 segment HAM CURER stenosis. ER provider spoke with neurology, recommended transfer to tertiary [facility] for possible four-vessel angiogram to evaluate for any further procedure. Neurologist at [facility] denied transfer. Allergies No Known Drug Allergies Allergy (Unverified 07/16/14 07:30) Unknown - Past Medical/Surgical History -: BPH -: CVA -: Hypertension -: Hypercholesterolemia -: Dash's palsy Past Surgical History: Unable to obtain - Family History Family History: Reviewed- Non-Contributory - Social History Smoking Status: Never smoker Alcohol use: No Place of Residence: Home Review of Systems 10-point ROS is otherwise unremarkable Physical Examination - Physical Exam General: Alert, In no apparent distress, Oriented x3 HEENT: PERRLA, Sclerae nonicteric Neck: Supple, No LAD Respiratory: Clear to auscultation bilaterally, Normal air movement Cardiovascular: No edema, Regular rate/rhythm, No murmurs Capillary refill: <2 Seconds Gastrointestinal: Soft and benign, Non-distended, No tenderness Musculoskeletal: No erythema, No tenderness Integumentary: No rashes, No significant lesion Neurological: Other (Left facial droop), Abnormal speech (Difficult to understand at times, slurred speech, due to prior CVA/pulse positive), Abnormal strength (Left upper extremity mild weakness compared to right) - Studies Laboratory Data (last 24 hrs) 02/02/21 13:39: PT 12.7 H, INR 1.10 02/02/21 13:39: WBC 8.00, Hgb 10.8 L, Hct 35.0 L, Plt Count 387 02/02/21 13:39: Sodium 140, Potassium 3.9, BUN 17, Creatinine 1.41 H, Glucose 89, Magnesium 2.3, Total Bilirubin 0.4, AST 20, ALT 23, Alkaline Phosphatase 77 Assessment and Plan - Advance Directives Does patient have a Living Will: No Does patient have a Durable POA for Healthcare: No Physician Review Additional Text: Problem list Severe hypotension, symptomatic with dizziness History of hypertension History of CVAs Dash's palsy BPH Hypercholesterolemia Unclear etiology of hypotension, this is a second episode. First episode occurred in the afternoon. This occurred 30 minutes after taking his medications. States he is on [address] negative for acute infarction CTA with high-grade focal stenosis of right M2 segment of the middle cerebral artery, uncertain acuity. At least moderate stenosis of right cavernous carotid artery. Left-sided circulation is all intact. ED provider discussed with our neurologist who recommended transfer to [place] for possible four-vessel angiogram and to evaluate for any acute intervention is warranted Neurology at tertiary care center started there was no need for this four-vessel angiogram, and did not want to accept the patient for transfer Patient states she was recently transferred to [place] and had full stroke work- up with carotids and echocardiogram, since this was normal Unable to view those records at this time, will obtain carotid ultrasound here Neurology consulted Continue home aspirin, Plavix Obtain/confirm home antihypertensives, restart stepwise/when appropriate Patient's blood pressure improved within 20 to 30 minutes at home, was already improving once EMS arrived. Currently now hypertensive Continue with gentle IV fluids overnight Neuro checks PT consult Code: DNR Dispo: Anticipate discharge home in 24 to 48 hours Time Spent Managing Pts Care (In Minutes): 60
[2021-02-02] MEDS: NA CHLORIDE 0.9% 1,000 ML IV SCH (19:49)
[2021-02-02] MEDS ORDERED: carvediloL 6.25 MG TAB PO ONE (21:22)
[2021-02-02] MEDS ORDERED: ATORVASTATIN 20 MG TAB ONE (21:59)
[2021-02-02 23:50] VITALS: BMI 33.2
[2021-02-03 03:58] LABS: Absolute Lymphocytes (CBC) 2.8 K/uL (0.7-4.9); Basophils % 1.1 % (0-1.3); Hematocrit 35.3 % (39.6-49.0); Lymphocytes % 30.7 % (15.3-44.8); RBC Red Blood Cell Count 5.45 M/uL (4.33-5.43)
[2021-02-03 04:05] LABS: Magnesium 2.2 mg/dL (1.8-2.4); Potassium 3.6 mmol/L (3.5-5.1)
--- NOTE | 2021-02-03 07:34 | RAD REPORT ---
EXAM DESCRIPTION: US - CP - 02/02/2021 10:41 pm CLINICAL HISTORY: dizziness, hypotension, eval flow/stenosis COMPARISON: Neck Angio dated 02/02/2021 TECHNIQUE: Real-time sonographic evaluation of both carotid systems was performed. Doppler interroga tion was performed with waveform tracing bilaterally. FINDINGS: Normal high resistance waveforms are noted in both external carotid arteries. The common c arotid arteries and internal carotid arteries show normal low resistance waveforms. Hard plaque is present at the carotid bulbs bilaterally. Peak systolic and end diastolic velocity ammy ues and the ICA/CCA ratios are in the non-hemodynamically significant range. Antegrade flow seen in both vertebral arteries. IMPRESSION: Hard plaque at the carotid bulbs. No evidence of a hemodynamically significant stenosis.
[2021-02-03] MEDS: NA CHLORIDE 0.9% 1,000 ML IV SCH (08:37)
[2021-02-03] MEDS ORDERED: ASPIRIN EC 81 MG TAB PO SCH (09:00)
[2021-02-03] MEDS ORDERED: CLOPIDOGREL 75 MG TABLET PO SCH (09:00)
[2021-02-03] MEDS ORDERED: POTASSIUM 25 MEQ EFFERV TAB PO ONE (09:00)
[2021-02-03] MEDS ORDERED: KCL 20 MEQ/100 mL IVPB 20 MEQ/100 ML BAG IV SCH (09:00)
[2021-02-03] MEDS ORDERED: AMLODIPINE 2.5 MG TAB PO SCH (09:25)
[2021-02-03 09:47] VITALS: O2SAT 100
--- NOTE | 2021-02-03 11:20 | P.DS ---
Admission Date: 02/02/21 Discharge Date: 02/03/21 Disposition: ROUTINE DISCHARGE Discharge Condition: FAIR Reason for Admission: Severe hypotension, symptomatic - Problems (1) Drug-induced hypotension Current Visit: Yes Status: Acute (2) Cerebral artery insufficiency Current Visit: Yes Status: Acute (3) History of Dash's palsy Current Visit: Yes Status: Acute (4) Essential hypertension Current Visit: Yes Status: Acute (5) Hypercholesteremia Current Visit: Yes Status: Acute (6) BPH (benign prostatic hyperplasia) Current Visit: Yes Status: Acute Brief History of Present Illness: 65-year-old male, PMH: Prior CVAs, BPH, hypertension, hypercholesterolemia. Presents to ED a few hours after hypotensive/dizziness episode. Patient was sitting at home when he suddenly became dizzy. He checked his blood pressure and noted that it was 60s/40s. He stated he typically has high blood pressure and takes 4 antihypertensives This is the second episode in the last month and that he had dizziness like this. He denies loss of consciousness. He denies any new numbness/tingling/weakness. They called EMS, on arrival, EMS recheck blood pressure and noted his 90s/50s. He was normotensive in the ED . Heart rate: 5360s, afebrile. He denies any recent illness. He had a previous hypotensive episode and was sent to [place] where he was there for a few days and was told nothing was found. In the ED, CTA noted moderate stenosis of the right cavernous ICA, high- grade focal stenosis of the right M2 segment of the middle cerebral artery. Also moderate right P2 segment [employer]ER stenosis. ER provider spoke with neurology, recommended transfer to tertiary [facility] for possible four-vessel angiogram to evaluate for any further procedure. Neurologist at tertiary [facility] denied transfer. Patient was hospitalized for further management. Hospital Course: Patient placed under observation on the medical floor. Carotid ultrasound was done which was negative. Patient blood pressure was stable during the hospital stay. He became hypertensive and was started on low dose amlodipine. Patient noted to be on 4 different antihypertensives, all as very low doses. Patient antihypertensives consolidated to amlodipine starting at 5 mg daily. Case discussed with neurology, and general consensus was that hypotension believed to neurology consequences given stenosis in the intracranial arteries. Patient was refused transfer to [facility] for evaluation. He is informed he will need to follow up with the Neurology Clinic at [facility] as an outpatient for further evaluation. Patient with a history of cerebral palsy in the past. She is currently at baseline. Patient is discharged to follow with the PCP Dr. Crespo to assist with referral to [facility] neurology clinic. Vital Signs/Physical Exam: Temp Pulse Resp BP Pulse Ox 97.2 F 75 18 158/95 H 100 02/03/21 08:00 02/03/21 09:25 02/03/21 08:00 02/03/21 09:25 02/03/21 08:00 General: Alert, In no apparent distress, Oriented x3 HEENT: Mucous membr. moist/pink Neck: JVD not distended Respiratory: Clear to auscultation bilaterally, Normal air movement Cardiovascular: No edema Gastrointestinal: Soft and benign, Non-distended Musculoskeletal: No swelling Integumentary: No rashes Neurological: Normal strength at 5/5 x4 extr, Other (Left facial Drrop) Laboratory Data at Discharge: WBC 9.20 K/uL (4.3-10.9) D 02/03/21 03:19 Hgb 10.9 g/dL (13.6-17.9) L 02/03/21 03:19 Hct 35.3 % (39.6-49.0) L 02/03/21 03:19 Plt Count 357 K/uL (152-406) 02/03/21 03:19 PT 12.7 SECONDS (9.5-12.5) H 02/02/21 13:39 INR 1.10 02/02/21 13:39 Sodium 141 mmol/L (136-145) 02/03/21 03:19 Potassium 3.6 mmol/L (3.5-5.1) 02/03/21 03:19 BUN 15 mg/dL (7-18) 02/03/21 03:19 Creatinine 1.07 mg/dL (0.55-1.3) 02/03/21 03:19 Glucose 87 mg/dL (74-106) 02/03/21 03:19 Magnesium 2.2 mg/dL (1.8-2.4) 02/03/21 03:19 Total Bilirubin 0.4 mg/dL (0.2-1.0) 02/02/21 13:39 AST 20 U/L (15-37) 02/02/21 13:39 ALT 23 U/L (12-78) 02/02/21 13:39 Alkaline Phosphatase 77 U/L (45-117) 02/02/21 13:39 Home Medications: Amlodipine [Norvasc*] 5 mg PO DAILY #30 tab 02/03/21 Aspirin [Aspirin EC] 81 mg PO DAILY #30 tablet. 02/03/21 Atorvastatin Calcium [Lipitor] 40 mg PO BEDTIME #30 tab 02/03/21 Clopidogrel Bisulfate [Plavix*] 75 mg PO DAILY #30 02/03/21 Tamsulosin [Flomax*] 0.4 mg PO BEDTIME #30 cap 02/03/21 New Medications: Aspirin [Aspirin EC] 81 mg PO DAILY #30 tablet. Tamsulosin [Flomax*] 0.4 mg PO BEDTIME #30 cap Atorvastatin Calcium [Lipitor] 40 mg PO BEDTIME #30 tab Amlodipine [Norvasc*] 5 mg PO DAILY #30 tab Clopidogrel Bisulfate [Plavix*] 75 mg PO DAILY #30 Diet: AHA Activity: Ad racheal Followup: Ji Segal MD [ASSOCIATE-ACTIVE - CAN ADMIT] - Colby Menjivar MD [Primary Care Provider] - 1 Week
--- NOTE | 2021-02-03 11:48 | EKG ---
Test Date: 2021-02-02 Test Time: 13:54:35 Insurance Claims Specialist: MEASUREMENT RESULTS: Intervals: Rate: 58 HI: 174 QRSD: 88 QT: 426 QTc: 418 Nuevo: P: 50 HI: 174 QRS: 30 T: 48 INTERPRETIVE STATEMENTS: Sinus bradycardia with premature supraventricular complexes Otherwise normal ECG Compared to ECG 11/04/2020 17:42:20 Sinus rhythm no longer present Aberrant conduction of supraventricular beat(s) no longer present Electronically Signed On 02-03-21 11:46:16 CDT by Hu Herrera
[2021-02-03 12:17] VITALS: BP 150/93; TEMP 97.8
[2021-02-03] MEDS ORDERED: TAMSULOSIN 0.4 MG SR CAP PO SCH (21:00)
[2021-02-03] MEDS ORDERED: ATORVASTATIN 40 MG TAB PO SCH (21:00)
--- OUTSIDE RECORDS SUMMARY | 2021-02-14 05:13 | XMS REPORT | Continuity of Care Document ---
:1955 Author Organization [facility] t Address [address] [place] [address] [address] [place] [address] Care Team Providers Name Role Phone Marguerite TRAN Primary Care Physician Unavailable ONEAL, MELISSA Attending Clinician Unavailable SRINIVAS KOHLI Attending Clinician Unavailable Nurse, Pob Immunization Attending Clinician Unavailable Srinivas Kohli DO Attending Clinician Doctor Unassigned, Name Attending Clinician Unavailable Marguerite TRAN Attending Clinician Unavailable Mike'CHARLES Attending Clinician Unavailable JOSE Attending Clinician Unavailable Marguerite Tran MD Attending Clinician Lab, Fam Pob I Attending Clinician Unavailable PAT Attending Clinician Unavailable Madelaine MUSA Attending Clinician Unavailable Henrique AUSTIN Attending Clinician Unavailable Provider, Urgent Care Attending Clinician Unavailable Aneregina ENDOCRINOLOGY NURSE Attending Clinician ANENE Attending Clinician Unavailable Gila MEDINA Attending Clinician GILA Attending Clinician Unavailable Henrique Austin MD Attending Clinician ONEALMELISSA Kraus Admitting Clinician Unavailable JOSE Admitting Clinician Unavailable Payers Payer Name Policy Type Policy Number Effective Date Expiration Date [facility] [id number] 2020 [facility] 00:00:00 LUDIN/KAYLA [id number] 2019 MEDICARE ADVANTAGE 00:00:00 Problems Condition Condition Condition Status Onset Resolution Last Treating Co mments Source Name Details Category Date Date Treatment Clinician Date 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 00:00: [place] positive positive 00 Medica l Branch Thrombocyt Thrombocyt Disease Active 2019-04 U nivers osis osis 2-09 ity of 00:00: [place] 00 Medical Branch Abnormal Abnormal Disease Active 2019-04 Unive rs LFTs LFTs 2-09 ity of 00:00: [place] 00 Medical Branch 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 (under 40) (under 40) 4-05 it y of 00:00: [place] 00 Medical Branch Erythrocyt Erythrocyt Disease Active U nivers osis osis 4-05 ity of 00:00: [place] 00 Medical Branch Microcytos Microcytos Disease Active U nivers is is 4-05 ity of 00:00: [place] 00 [facility] Branch Screening Screening Disease Active Overview: Univers for for 4-04 Added ity of colorectal colorectal 00:00: automatic [place] cancer cancer 00 ally from Medical request Branch for surgery [id number] DDD DDD Disease Active Univers (degenerat (degenerat 3-10 it y of cornelius disc cornelius disc 00:00: [place] disease), disease), 00 Medi kacey lumbar lumbar Branch Arthritis, Arthritis, Disease Active U nivers lumbar lumbar 3-10 ity of spine spine 00:00: [place] 00 Medical Branch Chronic Chronic Disease Active Univers low back low back 3-10 it[place] of pain with pain with [place] left-sided left-sided 00 Me dical sciatica sciatica Branch 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 About 20 years ago (around 1999) Stroke Stroke Disease Active Univers ity of [facility] Allergies, Adverse Reactions, Alerts Allergy Allergy Status Severity Reaction(s) Onset Inactive Treating Comm ents Source Name Type Date Date Clinician NO KNOWN Allergy Active [facility] NO KNOWN Drug Active Univers ALLERGIE Class ity of S [place] [facility] Social History Social Habit Start Date Stop Date Quantity Comments Source Exposure to Not sure [facility] SARS-CoV-2 (event) Medica l Branch Alcohol intake 2020-09-12 2020-09-12 0 /d [facility] 00:00:00 00:00:00 Medical Branch Tobacco use and 2015-08-27 2015-08-27 Never used [facility] exposure 00:00:00 00:00:00 Medical Branch Sex [birth year] [facility] 00:00:00 00:00:00 Medical Branch Smoking Status Start Date Stop Date Source Unknown if ever smoked [facility] Never smoker [facility] Medications Ordered Filled Start Stop Current Ordering Indication Dosage Frequency Signature Comments Components Source Medication Medication Date Date Medication? Clinician (SIG) Name Name tiZANidine Yes [id number] 4mg Take 1 Univers 4 mg tablet 6-01 tablet by ity of 00:00: mouth [place] 00 every 8 Medical (eight) Branch hours as needed (muscle pain or spasm). amLODIPine Yes [id number] 7.5mg Take 1.5 Univers 5 mg tablet 6-01 tablets by it y of 00:00: mouth [place] 00 daily. Medical Branch tiZANidine Yes [id number] 4mg Take 1 Univers 4 mg tablet 6-01 tablet by ity of 00:00: mouth [place] 00 every 8 Medical (eight) Branch hours as needed (muscle pain or spasm). amLODIPine Yes [id number] 7.5mg Take 1.5 Univers 5 mg tablet 6-01 tablets by it y of 00:00: mouth [place] 00 daily. Medical Branch tiZANidine Yes [id number] 4mg Take 1 Univers 4 mg tablet 6-01 tablet by ity of 00:00: mouth [place] 00 every 8 Medical (eight) Branch hours as needed (muscle pain or spasm). amLODIPine Yes [id number] 7.5mg Take 1.5 Univers 5 mg tablet 6-01 tablets by it y of 00:00: mouth [place] 00 daily. Medical Branch tiZANidine Yes [id number] 4mg Take 1 Univers 4 mg tablet 6-01 tablet by ity of 00:00: mouth [place] 00 every 8 Medical (eight) Branch hours as needed (muscle pain or spasm). amLODIPine 2020-0 Yes [id number] 7.5mg Take 1.5 Univers 5 mg tablet 6-01 tablets by it y of 00:00: mouth [place] 00 daily. Medical Branch tiZANidine 2020-0 Yes [id number] 4mg Take 1 Univers 4 mg tablet 6-01 tablet by ity of 00:00: mouth [place] 00 every 8 Medical (eight) Branch hours as needed (muscle pain or spasm). amLODIPine 2020-0 Yes [id number] 7.5mg Take 1.5 Univers 5 mg tablet 6-01 tablets by it y of 00:00: mouth [place] 00 daily. Medical Branch tiZANidine 2020-0 Yes [id number] 4mg Take 1 Univers 4 mg tablet 6-01 tablet by ity of 00:00: mouth [place] 00 every 8 Medical (eight) Branch hours as needed (muscle pain or spasm). amLODIPine 2020-0 Yes [id number] 7.5mg Take 1.5 Univers 5 mg tablet 6-01 tablets by it y of 00:00: mouth [place] 00 daily. Medical Branch tiZANidine 2020-0 Yes [id number] 4mg Take 1 Univers 4 mg tablet 6-01 tablet by ity of 00:00: mouth [place] 00 every 8 Medical (eight) Branch hours as needed (muscle pain or spasm). amLODIPine 2020-0 Yes [id number] 7.5mg Take 1.5 Univers 5 mg tablet 6-01 tablets by it y of 00:00: mouth [place] 00 daily. Medical Branch tiZANidine 2020-0 Yes [id number] 4mg Take 1 Univers 4 mg tablet 6-01 tablet by ity of 00:00: mouth [place] 00 every 8 Medical (eight) Branch hours as needed (muscle pain or spasm). amLODIPine 2020-0 Yes [id number] 7.5mg Take 1.5 Univers 5 mg tablet 6-01 tablets by it y of 00:00: mouth [place] 00 daily. Medical Branch tiZANidine 2020-0 Yes [id number] 4mg Take 1 Univers 4 mg tablet 6-01 tablet by ity of 00:00: mouth [place] 00 every 8 Medical (eight) Branch hours as needed (muscle pain or spasm). amLODIPine 2020-0 Yes [id number] 7.5mg Take 1.5 Univers 5 mg tablet 6-01 tablets by it y of 00:00: mouth [place] 00 daily. Medical Branch tiZANidine Yes [id number] 4mg Take 1 Univers 4 mg tablet 6-01 tablet by ity of 00:00: mouth [place] 00 every 8 Medical (eight) Branch hours as needed (muscle pain or spasm). amLODIPine Yes [id number] 7.5mg Take 1.5 Univers 5 mg tablet 6-01 tablets by it y of 00:00: mouth [place] 00 daily. Medical Branch clindamycin 2020- No [id number] 300mg Take 1 Univers 300 mg 2-16 capsule by ity of capsule 00:00: 05:59 mouth 4 [place] 00 :00 (four) Medical times Branch daily for 10 days. carvediloL 2019-04 Yes [id number] 6.25mg Take 1 Univers 6.25 mg 1-30 tablet by ity of tablet 00:00: mouth 2 [place] 00 (two) Medical times Branch daily with meals. lisinopriL 2019-04 Yes [id number] 20mg Take 1 U nivers 20 mg 1-30 tablet by ity of tablet 00:00: mouth [place] 00 daily. Medical Branch tamsulosin 2019-04 Yes [id number] .4mg Take 1 Univers 0.4 mg 24 1-30 capsule by ity of hr capsule 00:00: mouth [place] 00 daily. Medical Branch amLODIPine 2019-04 Yes [id number] 5mg Take 1 U nivers 5 mg tablet 1-30 tablet by ity of 00:00: mouth [place] 00 daily. Medical Branch atorvastati 2019-04 Yes [id number] 40mg Take 1 Univers n (LIPITOR) 1-30 tablet by ity of 40 mg 00:00: mouth at [place] tablet 00 bedtime. Medical Branch carvediloL 2019-04 Yes [id number] 6.25mg Take 1 Univers 6.25 mg 1-30 tablet by ity of tablet 00:00: mouth 2 [place] 00 (two) Medical times Branch daily with meals. lisinopriL 2019-04 Yes [id number] 20mg Take 1 U nivers 20 mg 1-30 tablet by ity of tablet 00:00: mouth [place] 00 daily. Medical Branch tamsulosin 2019-04 Yes [id number] .4mg Take 1 Univers 0.4 mg 24 1-30 capsule by ity of hr capsule 00:00: mouth [place] 00 daily. Medical Branch amLODIPine 2019- Yes [id number] 5mg Take 1 U nivers 5 mg tablet 1-30 tablet by ity of 00:00: mouth [place] 00 daily. Medical Branch atorvastati 2019-04 Yes [id number] 40mg Take 1 Univers n (LIPITOR) 1-30 tablet by ity of 40 mg 00:00: mouth at [place] tablet 00 bedtime. Medical Branch carvediloL 2019- Yes [id number] 6.25mg Take 1 Univers 6.25 mg 1-30 tablet by ity of tablet 00:00: mouth 2 [place] 00 (two) Medical times Branch daily with meals. lisinopriL 2019-04 Yes [id number] 20mg Take 1 U nivers 20 mg 1-30 tablet by ity of tablet 00:00: mouth [place] 00 daily. Medical Branch tamsulosin 2019-04 Yes [id number] .4mg Take 1 Univers 0.4 mg 24 1-30 capsule by ity of hr capsule 00:00: mouth [place] 00 daily. Medical Branch amLODIPine 2019-04 Yes [id number] 5mg Take 1 U nivers 5 mg tablet 1-30 tablet by ity of 00:00: mouth [place] 00 daily. Medical Branch atorvastati 2019-04 Yes [id number] 40mg Take 1 Univers n (LIPITOR) 1-30 tablet by ity of 40 mg 00:00: mouth at [place] tablet 00 bedtime. Medical Branch carvediloL 2019- Yes [id number] 6.25mg Take 1 Univers 6.25 mg 1-30 tablet by ity of tablet 00:00: mouth 2 [place] 00 (two) Medical times Branch daily with meals. lisinopriL 2019-04 Yes [id number] 20mg Take 1 U nivers 20 mg 1-30 tablet by ity of tablet 00:00: mouth [place] 00 daily. Medical Branch tamsulosin 2019-04 Yes [id number] .4mg Take 1 Univers 0.4 mg 24 1-30 capsule by ity of hr capsule 00:00: mouth [place] 00 daily. Medical Branch amLODIPine 2019-04 Yes [id number] 5mg Take 1 U nivers 5 mg tablet 1-30 tablet by ity of 00:00: mouth [place] 00 daily. Medical Branch atorvastati 2019-04 Yes [id number] 40mg Take 1 Univers n (LIPITOR) 1-30 tablet by ity of 40 mg 00:00: mouth at [place] tablet 00 bedtime. Medical Branch carvediloL 2019- Yes [id number] 6.25mg Take 1 Univers 6.25 mg 1-30 tablet by ity of tablet 00:00: mouth 2 [place] (two) Medical times Branch daily with meals. lisinopriL 2019-04 Yes [id number] 20mg Take 1 U nivers 20 mg 1-30 tablet by ity of tablet 00:00: mouth [place] 00 daily. Medical Branch tamsulosin 2019-04 Yes [id number] .4mg Take 1 Univers 0.4 mg 24 1-30 capsule by ity of hr capsule 00:00: mouth [place] 00 daily. Medical Branch amLODIPine 2019-04 Yes [id number] 5mg Take 1 U nivers 5 mg tablet 1-30 tablet by ity of 00:00: mouth [place] 00 daily. Medical Branch atorvastati 2019-04 Yes [id number] 40mg Take 1 Univers n (LIPITOR) 1-30 tablet by ity of 40 mg 00:00: mouth at [place] tablet 00 bedtime. Medical Branch carvediloL 2019-04 Yes [id number] 6.25mg Take 1 Univers 6.25 mg 1-30 tablet by ity of tablet 00:00: mouth 2 (two) Medical times Branch daily with meals. lisinopriL 2019-04 Yes [id number] 20mg Take 1 U nivers 20 mg 1-30 tablet by ity of tablet 00:00: mouth [place] 00 daily. Medical Branch tamsulosin 2019-04 Yes [id number] .4mg Take 1 Univers 0.4 mg 24 1-30 capsule by ity of hr capsule 00:00: mouth [place] 00 daily. Medical Branch amLODIPine 2019-04 Yes [id number] 5mg Take 1 U nivers 5 mg tablet 1-30 tablet by ity of 00:00: mouth [place] 00 daily. Medical Branch atorvastati 2019-04 Yes [id number] 40mg Take 1 Univers n (LIPITOR) 1-30 tablet by ity of 40 mg 00:00: mouth at [place] tablet 00 bedtime. Medical Branch carvediloL 2019-04 Yes [id number] 6.25mg Take 1 Univers 6.25 mg 1-30 tablet by ity of tablet 00:00: mouth 2 (two) Medical times Branch daily with meals. lisinopriL 2019-04 Yes [id number] 20mg Take 1 U nivers 20 mg 1-30 tablet by ity of tablet 00:00: mouth [place] 00 daily. Medical Branch tamsulosin 2019-04 Yes [id number] .4mg Take 1 Univers 0.4 mg 24 1-30 capsule by ity of hr capsule 00:00: mouth [place] 00 daily. Medical Branch amLODIPine 2019-04 Yes [id number] 5mg Take 1 U nivers 5 mg tablet 1-30 tablet by ity of 00:00: mouth [place] 00 daily. Medical Branch atorvastati 2019-04 Yes [id number] 40mg Take 1 Univers n (LIPITOR) 1-30 tablet by ity of 40 mg 00:00: mouth at [place] tablet 00 bedtime. Medical Branch carvediloL 2019-04 Yes [id number] 6.25mg Take 1 Univers 6.25 mg 1-30 tablet by ity of tablet 00:00: mouth (two) Medical times Branch daily with meals. lisinopriL 2019-04 Yes [id number] 20mg Take 1 U nivers 20 mg 1-30 tablet by ity of tablet 00:00: mouth [place] 00 daily. Medical Branch tamsulosin 2019-04 Yes [id number] .4mg Take 1 Univers 0.4 mg 24 1-30 capsule by ity of hr capsule 00:00: mouth [place] 00 daily. Medical Branch amLODIPine 2019-04 Yes [id number] 5mg Take 1 U nivers 5 mg tablet 1-30 tablet by ity of 00:00: mouth [place] 00 daily. Medical Branch atorvastati 2019-04 Yes [id number] 40mg Take 1 Univers n (LIPITOR) 1-30 tablet by ity of 40 mg 00:00: mouth at [place] tablet 00 bedtime. Medical Branch carvediloL 2019- Yes [id number] 6.25mg Take 1 Univers 6.25 mg 1-30 tablet by ity of tablet 00:00: mouth 2 (two) Medical times Branch daily with meals. lisinopriL 2019- Yes [id number] 20mg Take 1 U nivers 20 mg 1-30 tablet by ity of tablet 00:00: mouth [place] 00 daily. Medical Branch tamsulosin 2019-04 Yes [id number] .4mg Take 1 Univers 0.4 mg 24 1-30 capsule by ity of hr capsule 00:00: mouth [place] 00 daily. Medical Branch amLODIPine 2019- Yes [id number] 5mg Take 1 U nivers 5 mg tablet 1-30 tablet by ity of 00:00: mouth [place] 00 daily. Medical Branch atorvastati 2019- Yes [id number] 40mg Take 1 Univers n (LIPITOR) 1-30 tablet by ity of 40 mg 00:00: mouth at [place] tablet 00 bedtime. Medical Branch carvediloL 2019- Yes [id number] 6.25mg Take 1 Univers 6.25 mg 1-30 tablet by ity of tablet 00:00: mouth 2 [place] 00 (two) Medical times Branch daily with meals. lisinopriL 2019-04 Yes [id number] 20mg Take 1 U nivers 20 mg 1-30 tablet by ity of tablet 00:00: mouth [place] 00 daily. Medical Branch tamsulosin 2019-04 Yes [id number] .4mg Take 1 Univers 0.4 mg 24 1-30 capsule by ity of hr capsule 00:00: mouth [place] 00 daily. Medical Branch amLODIPine 2019-04 Yes [id number] 5mg Take 1 U nivers 5 mg tablet 1-30 tablet by ity of 00:00: mouth [place] 00 daily. Medical Branch atorvastati 2019-04 Yes [id number] 40mg Take 1 Univers n (LIPITOR) 1-30 tablet by ity of 40 mg 00:00: mouth at [place] tablet 00 bedtime. Medical Branch carvediloL 2019- Yes [id number] 6.25mg Take 1 Univers 6.25 mg 1-30 tablet by ity of tablet 00:00: mouth 2 [place] 00 (two) Medical times Branch daily with meals. lisinopriL 2019- Yes [id number] 20mg Take 1 U nivers 20 mg 1-30 tablet by ity of tablet 00:00: mouth [place] 00 daily. Medical Branch tamsulosin 2019-04 Yes [id number] .4mg Take 1 Univers 0.4 mg 24 1-30 capsule by ity of hr capsule 00:00: mouth [place] 00 daily. Medical Branch carvediloL 2019- Yes [id number] 6.25mg Take 1 Univers 6.25 mg 1-30 tablet by ity of tablet 00:00: mouth 2 [place] 00 (two) Medical times Branch daily with meals. lisinopriL 2019-04 Yes [id number] 20mg Take 1 U nivers 20 mg 1-30 tablet by ity of tablet 00:00: mouth [place] 00 daily. Medical Branch tamsulosin 2019-04 Yes [id number] .4mg Take 1 Univers 0.4 mg 24 1-30 capsule by ity of hr capsule 00:00: mouth [place] 00 daily. Medical Branch amLODIPine 2019-04 Yes [id number] 5mg Take 1 U nivers 5 mg tablet 1-30 tablet by ity of 00:00: mouth [place] 00 daily. Medical Branch atorvastati 2019-04 Yes [id number] 40mg Take 1 Univers n (LIPITOR) 1-30 tablet by ity of 40 mg 00:00: mouth at [place] tablet 00 bedtime. Medical Branch atorvastati 2019-04 Yes [id number] 40mg Take 1 Univers n (LIPITOR) 1-30 tablet by ity of 40 mg 00:00: mouth at [place] tablet 00 bedtime. Medical Branch carvediloL 2019-04 Yes [id number] 6.25mg Take 1 Univers 6.25 mg 1-30 tablet by ity of tablet 00:00: mouth 2 (two) Medical times Branch daily with meals. lisinopriL 2019-04 Yes [id number] 20mg Take 1 U nivers 20 mg 1-30 tablet by ity of tablet 00:00: mouth [place] 00 daily. Medical Branch tamsulosin 2019-04 Yes [id number] .4mg Take 1 Univers 0.4 mg 24 1-30 capsule by ity of hr capsule 00:00: mouth [place] 00 daily. Medical Branch amLODIPine 2019-04 Yes [id number] 5mg Take 1 U nivers 5 mg tablet 1-30 tablet by ity of 00:00: mouth [place] 00 daily. Medical Branch atorvastati 2019-04 Yes [id number] 40mg Take 1 Univers n (LIPITOR) 1-30 tablet by ity of 40 mg 00:00: mouth at [place] tablet 00 bedtime. Medical Branch carvediloL 2019-04 Yes [id number] 6.25mg Take 1 Univers 6.25 mg 1-30 tablet by ity of tablet 00:00: mouth 2 (two) Medical times Branch daily with meals. lisinopriL 2019-04 Yes [id number] 20mg Take 1 U nivers 20 mg 1-30 tablet by ity of tablet 00:00: mouth [place] 00 daily. Medical Branch tamsulosin 2019- Yes [id number] .4mg Take 1 Univers 0.4 mg 24 1-30 capsule by ity of hr capsule 00:00: mouth [place] 00 daily. Medical Branch amLODIPine 2019- Yes [id number] 5mg Take 1 U nivers 5 mg tablet 1-30 tablet by ity of 00:00: mouth [place] 00 daily. Medical Branch atorvastati 2019-04 Yes [id number] 40mg Take 1 Univers n (LIPITOR) 1-30 tablet by ity of 40 mg 00:00: mouth at [place] tablet 00 bedtime. Medical Branch carvediloL 2019-04 Yes [id number] 6.25mg Take 1 Univers 6.25 mg 1-30 tablet by ity of tablet 00:00: mouth 2 [place] 00 (two) Medical times Branch daily with meals. lisinopriL 2019-04 Yes [id number] 20mg Take 1 U nivers 20 mg 1-30 tablet by ity of tablet 00:00: mouth [place] 00 daily. Medical Branch tamsulosin 2019-04 Yes [id number] .4mg Take 1 Univers 0.4 mg 24 1-30 capsule by ity of hr capsule 00:00: mouth [place] 00 daily. Medical Branch atorvastati 2019-04 Yes [id number] 40mg Take 1 Univers n (LIPITOR) 1-30 tablet by ity of 40 mg 00:00: mouth at [place] tablet 00 bedtime. Medical Branch carvediloL 2019- Yes [id number] 6.25mg Take 1 Univers 6.25 mg 1-30 tablet by ity of tablet 00:00: mouth 2 [place] 00 (two) Medical times Branch daily with meals. lisinopriL 2019- Yes [id number] 20mg Take 1 U nivers 20 mg 1-30 tablet by ity of tablet 00:00: mouth [place] 00 daily. Medical Branch tamsulosin 2019-04 Yes [id number] .4mg Take 1 Univers 0.4 mg 24 1-30 capsule by ity of hr capsule 00:00: mouth [place] 00 daily. Medical Branch atorvastati 2019- Yes [id number] 40mg Take 1 Univers n (LIPITOR) 1-30 tablet by ity of 40 mg 00:00: mouth at [place] tablet 00 bedtime. Medical Branch carvediloL 2019-04 Yes [id number] 6.25mg Take 1 Univers 6.25 mg 1-30 tablet by ity of tablet 00:00: mouth 2 (two) Medical times Branch daily with meals. lisinopriL 2019-04 Yes [id number] 20mg Take 1 U nivers 20 mg 1-30 tablet by ity of tablet 00:00: mouth [place] 00 daily. Medical Branch tamsulosin 2019-04 Yes [id number] .4mg Take 1 Univers 0.4 mg 24 1-30 capsule by ity of hr capsule 00:00: mouth [place] 00 daily. Medical Branch atorvastati 2019-04 Yes [id number] 40mg Take 1 Univers n (LIPITOR) 1-30 tablet by ity of 40 mg 00:00: mouth at [place] tablet 00 bedtime. Medical Branch carvediloL 2019-04 Yes [id number] 6.25mg Take 1 Univers 6.25 mg 1-30 tablet by ity of tablet 00:00: mouth 2 (two) Medical times Branch daily with meals. lisinopriL 2019-04 Yes [id number] 20mg Take 1 U nivers 20 mg 1-30 tablet by ity of tablet 00:00: mouth [place] 00 daily. Medical Branch tamsulosin 2019-04 Yes [id number] .4mg Take 1 Univers 0.4 mg 24 1-30 capsule by ity of hr capsule 00:00: mouth [place] 00 daily. Medical Branch atorvastati 2019-04 Yes [id number] 40mg Take 1 Univers n (LIPITOR) 1-30 tablet by ity of 40 mg 00:00: mouth at [place] tablet 00 bedtime. Medical Branch carvediloL 2019-04 Yes [id number] 6.25mg Take 1 Univers 6.25 mg 1-30 tablet by ity of tablet 00:00: mouth 2 (two) Medical times Branch daily with meals. lisinopriL 2019-04 Yes [id number] 20mg Take 1 U nivers 20 mg 1-30 tablet by ity of tablet 00:00: mouth [place] 00 daily. Medical Branch tamsulosin 2019-04 Yes [id number] .4mg Take 1 Univers 0.4 mg 24 1-30 capsule by ity of hr capsule 00:00: mouth [place] 00 daily. Medical Branch atorvastati 2019- Yes [id number] 40mg Take 1 Univers n (LIPITOR) 1-30 tablet by ity of 40 mg 00:00: mouth at [place] tablet 00 bedtime. Medical Branch carvediloL 2019-04 Yes [id number] 6.25mg Take 1 Univers 6.25 mg 1-30 tablet by ity of tablet 00:00: mouth 2 00 (two) Medical times Branch daily with meals. lisinopriL 2019-04 Yes [id number] 20mg Take 1 U nivers 20 mg 1-30 tablet by ity of tablet 00:00: mouth [place] 00 daily. Medical Branch tamsulosin 2019-04 Yes [id number] .4mg Take 1 Univers 0.4 mg 24 1-30 capsule by ity of hr capsule 00:00: mouth [place] 00 daily. Medical Branch atorvastati 2019-04 Yes [id number] 40mg Take 1 Univers n (LIPITOR) 1-30 tablet by ity of 40 mg 00:00: mouth at [place] tablet 00 bedtime. Medical Branch carvediloL 2019-04 Yes [id number] 6.25mg Take 1 Univers 6.25 mg 1-30 tablet by ity of tablet 00:00: mouth 2 (two) Medical times Branch daily with meals. lisinopriL 2019-04 Yes [id number] 20mg Take 1 U nivers 20 mg 1-30 tablet by ity of tablet 00:00: mouth [place] 00 daily. Medical Branch tamsulosin 2019-04 Yes [id number] .4mg Take 1 Univers 0.4 mg 24 1-30 capsule by ity of hr capsule 00:00: mouth [place] 00 daily. Medical Branch atorvastati 2019-04 Yes [id number] 40mg Take 1 Univers n (LIPITOR) 1-30 tablet by ity of 40 mg 00:00: mouth at [place] tablet 00 bedtime. Medical Branch carvediloL 2019-04 Yes [id number] 6.25mg Take 1 Univers 6.25 mg 1-30 tablet by ity of tablet 00:00: mouth 2 [place] 00 (two) Medical times Branch daily with meals. lisinopriL 2019-04 Yes [id number] 20mg Take 1 U nivers 20 mg 1-30 tablet by ity of tablet 00:00: mouth [place] 00 daily. Medical Branch tamsulosin 2019-04 Yes [id number] .4mg Take 1 Univers 0.4 mg 24 1-30 capsule by ity of hr capsule 00:00: mouth [place] 00 daily. Medical Branch atorvastati 2019-04 Yes [id number] 40mg Take 1 Univers n (LIPITOR) 1-30 tablet by ity of 40 mg 00:00: mouth at [place] tablet 00 bedtime. Medical Branch carvediloL 2019-04 Yes [id number] 6.25mg Take 1 Univers 6.25 mg 1-30 tablet by ity of tablet 00:00: mouth 2 [place] 00 (two) Medical times Branch daily with meals. lisinopriL 2019-04 Yes [id number] 20mg Take 1 U nivers 20 mg 1-30 tablet by ity of tablet 00:00: mouth [place] 00 daily. Medical Branch tamsulosin 2019-04 Yes [id number] .4mg Take 1 Univers 0.4 mg 24 1-30 capsule by ity of hr capsule 00:00: mouth [place] 00 daily. Medical Branch atorvastati 2019-04 Yes [id number] 40mg Take 1 Univers n (LIPITOR) 1-30 tablet by ity of 40 mg 00:00: mouth at [place] tablet 00 bedtime. Medical Branch amLODIPine 2019-04- No [id number] 5mg Take 1 Univers 5 mg tablet 1-30 -01 tablet by it y of 00:00: 00:00 mouth [place] 00 :00 daily. Medical Branch amLODIPine 2019-04- No [id number] 5mg Take 1 Univers 5 mg tablet 1-30 -01 tablet by it y of 00:00: 00:00 mouth [place] 00 :00 daily. Medical Branch carvediloL 2019-04 Yes [id number] 6.25mg Take 1 Univers 6.25 mg 0-23 tablet by ity of tablet 00:00: mouth 2 [place] 00 (two) Medical times Branch daily with meals. lisinopriL 2019-04 Yes [id number] 20mg Take 1 U nivers 20 mg 0-23 tablet by ity of tablet 00:00: mouth [place] 00 daily. Medical Branch carvediloL 2019-04- No [id number] 6.25mg Take 1 Univers 6.25 mg 0-23 11-30 tablet by ity of tablet 00:00: 00:00 mouth 2 [place] 00 :00 (two) Medical times Branch daily with meals. lisinopriL 2019-2019- No [id number] 20mg Take 1 Univers 20 mg 0-23 11-30 tablet by ity of tablet 00:00: 00:00 mouth [place] 00 :00 daily. Medical Branch carvediloL 2019-04- No [id number] 6.25mg Take 1 Univers 6.25 mg 0-23 11-30 tablet by ity of tablet 00:00: 00:00 mouth 2 [place] 00 :00 (two) Medical times Branch daily with meals. lisinopriL 2019-04- No [id number] 20mg Take 1 Univers 20 mg 0-23 11-30 tablet by ity of tablet 00:00: 00:00 mouth [place] 00 :00 daily. Medical Branch carvediloL 2019-04- No [id number] 6.25mg Take 1 [facility] 6.25 mg 0-23 11-30 tablet by ity of tablet 00:00: 00:00 mouth 2 [place] 00 :00 (two) Medical times Branch daily with meals. lisinopriL 2019-04- No [id number] 20mg Take 1 [facility] 20 mg 0-23 11-30 tablet by it[facility] of tablet 00:00: 00:00 mouth [place] 00 :00 daily. [facility] TAMSULOSIN 2020-0 Yes [id number] Take 1 [facility] 0.4 mg 24 9-22 capsule by ity of hr capsule 00:00: mouth once [place] 00 daily [facility] TAMSULOSIN 2020-0 Yes [id number] Take 1 [facility] 0.4 mg 24 9-22 capsule by [facility] of hr capsule 00:00: mouth once [place] 00 daily [facility] TAMSULOSIN 2020-0 Yes [id number] Take 1 [facility] 0.4 mg 24 9-22 capsule by [facility] of hr capsule 00:00: mouth once [place] 00 daily [facility] TAMSULOSIN 2020-0 Yes [id number] Take 1 [facility] 0.4 mg 24 9-22 capsule by [facility] of hr capsule 00:00: mouth once [place] 00 daily [facility] TAMSULOSIN 2020-0 2020- No [id number] Take 1 [facility] 0.4 mg 24 9-22 11-30 capsule by ity of hr capsule 00:00: 00:00 mouth once [place] 00 :00 daily Medical [facility] TAMSULOSIN 2020-0 2020- No [id number] Take 1 [facility] 0.4 mg 24 12-24-30 capsule by ity of hr capsule 00:00: 00:00 mouth once [place] 00 :00 daily Medical [facility] TAMSULOSIN 2019-0 2020- No [id number] Take 1 [facility] 0.4 mg 24 12-24-30 capsule by ity of hr capsule 00:00: 00:00 mouth once [place] 00 :00 daily Medical [facility] amLODIPine 2019-0 Yes [id number] 5mg Take 1 [facility] 5 mg tablet 8-31 tablet by ity of 00:00: mouth [place] 00 daily. Medical Branch carvediloL 2019-0 Yes [id number] 6.25mg Take 1 [facility] 6.25 mg 8-31 tablet by [facility] of tablet 00:00: mouth 2 (two) Medical times Branch daily with meals. amLODIPine 2019-0 Yes [id number] 5mg Take 1 [facility] 5 mg tablet 8-31 tablet by [facility] of 00:00: mouth 00 daily. Medical [facility] carvediloL 2019-0 Yes [id number] 6.25mg Take 1 [facility] 6.25 mg 8-31 tablet by [facility] of tablet 00:00: mouth 2 (two) Medical times Branch daily with meals. amLODIPine 2020-0 Yes [id number] 5mg Take 1 [facility] 5 mg tablet 8-31 tablet by [facility] of 00:00: mouth 00 daily. Medical Branch carvediloL 2019-0 Yes [id number] 6.25mg Take 1 [facility] 6.25 mg 8-31 tablet by [facility] of tablet 00:00: mouth (two) Medical times Branch daily with meals. amLODIPine 2020-0 Yes [id number] 5mg Take 1 [facility] 5 mg tablet 8-31 tablet by [facility] of 00:00: mouth 00 daily. Medical Branch carvediloL 2020-0 Yes [id number] 6.25mg Take 1 [facility] 6.25 mg 8-31 tablet by [facility] of tablet 00:00: mouth 2 (two) Medical times Branch daily with meals. amLODIPine 2020-0 Yes [id number] 5mg Take 1 [facility] 5 mg tablet 8-31 tablet by [facility] of 00:00: mouth 00 daily. [facility] amLODIPine 2019-0 2020- No [id number] 5mg Take 1 [facility] 5 mg tablet 8-31 11-30 tablet by it y of 00:00: 00:00 mouth [place] 00 :00 daily. [facility] amLODIPine 2019-0 2020- No [id number] 5mg Take 1 [facility] 5 mg tablet 12-02-30 tablet by it y of 00:00: 00:00 mouth [place] 00 :00 daily. [facility] amLODIPine 2019-0 2020- No [id number] 5mg Take 1 [facility] 5 mg tablet 12-02-30 tablet by it y of 00:00: 00:00 mouth [place] 00 :00 daily. [facility] carvediloL 2019-0 2020- No [id number] 6.25mg Take 1 [facility] 6.25 mg 12-02 10-23 tablet by it[facility] of tablet 00:00: 00:00 mouth 2 [place] 00 :00 (two) Medical times Branch daily with meals. carvediloL 2019-0 Yes [id number] 6.25mg Take 1 [facility] 6.25 mg 4-07 tablet by [facility] of tablet 00:00: mouth 2 [place] 00 (two) Medical times Branch daily with meals. amLODIPine 2019-0 Yes [id number] 5mg Take 1 [facility] 5 mg tablet 4-07 tablet by it[facility] of 00:00: mouth [place] 00 daily. Medical Branch lisinopril 2019-0 Yes [id number] 20mg Take 1 [facility] 20 mg 4-07 tablet by it[facility] of tablet 00:00: mouth [place] 00 daily. Medical [facility] atorvastati 2019-0 Yes [id number] 40mg Take 1 [facility] n (LIPITOR) 4-07 tablet by ity of 40 mg 00:00: mouth at [place] tablet 00 bedtime. Medical Branch tamsulosin 2020-0 Yes [id number] .4mg Take 1 [facility] 0.4 mg 24 4-07 capsule by it[facility] of hr capsule 00:00: mouth [place] 00 daily. Medical Branch tiZANidine 2020-0 Yes [id number] 4mg Take 1 [facility] 4 mg tablet 4-07 tablet by ity of 00:00: mouth [place] 00 every 8 Medical (eight) Branch hours as needed (muscle pain or spasm). carvediloL 2019-0 Yes [id number] 6.25mg Take 1 [facility] 6.25 mg 4-07 tablet by ity of tablet 00:00: mouth 2 [place] 00 (two) Medical times Branch daily with meals. amLODIPine 2019-0 Yes [id number] 5mg Take 1 [facility] 5 mg tablet 4-07 tablet by ity of 00:00: mouth [place] 00 daily. Medical Branch lisinopril 2020-0 Yes [id number] 20mg Take 1 [facility] 20 mg 4-07 tablet by it[facility] of tablet 00:00: mouth [place] 00 daily. Medical [facility] atorvastati 2020-0 Yes [id number] 40mg Take 1 [facility] n (LIPITOR) 4-07 tablet by ity of 40 mg 00:00: mouth at [place] tablet 00 bedtime. Medical Branch tamsulosin 2020-0 Yes [id number] .4mg Take 1 [facility] 0.4 mg 24 4-07 capsule by ity of hr capsule 00:00: mouth [place] 00 daily. Medical [facility] tiZANidine 2020-0 Yes [id number] 4mg Take 1 [facility] 4 mg tablet 4-07 tablet by ity of 00:00: mouth [place] 00 every 8 Medical (eight) Branch hours as needed (muscle pain or spasm). carvediloL 2020-0 Yes [id number] 6.25mg Take 1 [facility] 6.25 mg 4-07 tablet by ity of tablet 00:00: mouth 2 [place] 00 (two) Medical times Branch daily with meals. amLODIPine 2020-0 Yes [id number] 5mg Take 1 [facility] 5 mg tablet 4-07 tablet by [facility] of 00:00: mouth [place] 00 daily. [facility] lisinopril 2020-0 Yes [id number] 20mg Take 1 [facility] 20 mg 4-07 tablet by [facility] of tablet 00:00: mouth [place] 00 daily. [facility] Branch atorvastati 2020-0 Yes [id number] 40mg Take 1 [facility] n (LIPITOR) 4-07 tablet by ity of 40 mg 00:00: mouth at [place] tablet 00 bedtime. Medical Branch tamsulosin 2020-0 Yes [id number] .4mg Take 1 [facility] 0.4 mg 24 4-07 capsule by it[facility] of hr capsule 00:00: mouth [place] 00 daily. [facility] tiZANidine 2020-0 Yes [id number] 4mg Take 1 [facility] 4 mg tablet 4-07 tablet by ity of 00:00: mouth [place] 00 every 8 Medical (eight) Branch hours as needed (muscle pain or spasm). lisinopril 2020-0 Yes [id number] 20mg Take 1 [facility] 20 mg 4-07 tablet by [facility] of tablet 00:00: mouth [place] 00 daily. Medical Branch atorvastati 2020-0 Yes [id number] 40mg Take 1 [facility] n (LIPITOR) 4-07 tablet by ity of 40 mg 00:00: mouth at [place] tablet 00 bedtime. Medical Branch tamsulosin 2020-0 Yes [id number] .4mg Take 1 [facility] 0.4 mg 24 4-07 capsule by ity of hr capsule 00:00: mouth [place] 00 daily. [facility] tiZANidine 2020-0 Yes [id number] 4mg Take 1 [facility] 4 mg tablet 4-07 tablet by ity of 00:00: mouth [place] 00 every 8 Medical (eight) Branch hours as needed (muscle pain or spasm). lisinopril 2020-0 Yes [id number] 20mg Take 1 [facility] 20 mg 4-07 tablet by [facility] of tablet 00:00: mouth [place] 00 daily. [facility] Branch atorvastati 2019-0 Yes [id number] 40mg Take 1 [facility] n (LIPITOR) 4-07 tablet by ity of 40 mg 00:00: mouth at [place] tablet 00 bedtime. Medical Branch tiZANidine 2020-0 Yes [id number] 4mg Take 1 [facility] 4 mg tablet 4-07 tablet by ity of 00:00: mouth [place] 00 every 8 Medical (eight) Branch hours as needed (muscle pain or spasm). lisinopril 2020-0 Yes [id number] 20mg Take 1 [facility] n[facility] 20 mg 4-07 tablet by [facility] of tablet 00:00: mouth [place] 00 daily. [facility] Branch atorvastati 2020-0 Yes [id number] 40mg Take 1 [facility] n (LIPITOR) 4-07 tablet by ity of 40 mg 00:00: mouth at [place] tablet 00 bedtime. Medical Branch tiZANidine 2020-0 Yes [id number] 4mg Take 1 [facility] 4 mg tablet 4-07 tablet by ity of 00:00: mouth [place] 00 every 8 Medical (eight) Branch hours as needed (muscle pain or spasm). lisinopril 2020-0 Yes [id number] 20mg Take 1 [facility] 20 mg 4-07 tablet by [facility] of tablet 00:00: mouth [place] 00 daily. [facility] Branch atorvastati 2020-0 Yes [id number] 40mg Take 1 [facility] n (LIPITOR) 4-07 tablet by ity of 40 mg 00:00: mouth at [place] tablet 00 bedtime. Medical Branch tiZANidine 2020-0 Yes [id number] 4mg Take 1 [facility] 4 mg tablet 4-07 tablet by ity of 00:00: mouth [place] 00 every 8 Medical (eight) Branch hours as needed (muscle pain or spasm). atorvastati 2020-0 Yes [id number] 40mg Take 1 [facility] n (LIPITOR) 4-07 tablet by ity of 40 mg 00:00: mouth at [place] tablet 00 bedtime. Medical Branch tiZANidine 2020-0 Yes [id number] 4mg Take 1 [facility] 4 mg tablet 4-07 tablet by ity of 00:00: mouth [place] 00 every 8 Medical (eight) Branch hours as needed (muscle pain or spasm). tiZANidine 2020-0 Yes [id number] 4mg Take 1 [facility] 4 mg tablet 4-07 tablet by ity of 00:00: mouth [place] 00 every 8 Medical (eight) Branch hours as needed (muscle pain or spasm). tiZANidine 2020-0 Yes [id number] 4mg Take 1 [facility] 4 mg tablet 4-07 tablet by ity of 00:00: mouth [place] 00 every 8 Medical (eight) Branch hours as needed (muscle pain or spasm). tiZANidine 2020-0 Yes [id number] 4mg Take 1 [facility] 4 mg tablet 4-07 tablet by ity of 00:00: mouth [place] 00 every 8 Medical (eight) Branch hours as needed (muscle pain or spasm). tiZANidine 2020-0 Yes [id number] 4mg Take 1 [facility] 4 mg tablet 4-07 tablet by ity of 00:00: mouth [place] 00 every 8 Medical (eight) Branch hours as needed (muscle pain or spasm). tiZANidine 2020-0 Yes [id number] 4mg Take 1 [facility] 4 mg tablet 4-07 tablet by ity of 00:00: mouth [place] 00 every 8 Medical (eight) Branch hours as needed (muscle pain or spasm). tiZANidine 2020-0 Yes [id number] 4mg Take 1 [facility] 4 mg tablet 4-07 tablet by ity of 00:00: mouth [place] 00 every 8 Medical (eight) Branch hours as needed (muscle pain or spasm). tiZANidine 2020-0 Yes [id number] 4mg Take 1 [facility] 4 mg tablet 4-07 tablet by ity of 00:00: mouth [place] 00 every 8 Medical (eight) Branch hours as needed (muscle pain or spasm). tiZANidine 2020-0 Yes [id number] 4mg Take 1 [facility] 4 mg tablet 4-07 tablet by ity of 00:00: mouth [place] 00 every 8 Medical (eight) Branch hours as needed (muscle pain or spasm). tiZANidine 2020-0 Yes [id number] 4mg Take 1 [facility] 4 mg tablet 4-07 tablet by ity of 00:00: mouth [place] 00 every 8 Medical (eight) Branch hours as needed (muscle pain or spasm). tiZANidine 2020-0 Yes [id number] 4mg Take 1 [facility] 4 mg tablet 4-07 tablet by ity of 00:00: mouth [place] 00 every 8 Medical (eight) Branch hours as needed (muscle pain or spasm). tiZANidine 2020-0 Yes [id number] 4mg Take 1 [facility] 4 mg tablet 4-07 tablet by ity of 00:00: mouth [place] 00 every 8 Medical (eight) Branch hours as needed (muscle pain or spasm). tiZANidine 2020-0 Yes [id number] 4mg Take 1 [facility] 4 mg tablet 4-07 tablet by ity of 00:00: mouth [place] 00 every 8 Medical (eight) Branch hours as needed (muscle pain or spasm). tiZANidine 2020-0 Yes [id number] 4mg Take 1 [facility] 4 mg tablet 4-07 tablet by ity of 00:00: mouth [place] 00 every 8 Medical (eight) Branch hours as needed (muscle pain or spasm). tiZANidine 2020-0 2020- No [id number] 4mg Take 1 [facility] 4 mg tablet 4- 06-01 tablet by it y of 00:00: 00:00 mouth [place] 00 :00 every 8 Medical (eight) Branch hours as needed (muscle pain or spasm). tiZANidine 2020-0 2020- No [id number] 4mg Take 1 [facility] 4 mg tablet 4- 06-01 tablet by it y of 00:00: 00:00 mouth [place] 00 :00 every 8 Medical (eight) Branch hours as needed (muscle pain or spasm). atorvastati 2020-0 2020- No [id number] 40mg Take 1 [facility] n (LIPITOR) 4-07 11-30 tablet by it y of 40 mg 00:00: 00:00 mouth at [place] tablet 00 :00 bedtime. Medical Branch atorvastati 2019-2019- No [id number] 40mg Take 1 [facility] n (LIPITOR) 07-0930 tablet by it y of 40 mg 00:00: 00:00 mouth at [place] tablet 00 :00 bedtime. Medical Branch atorvastati 2019- No [id number] 40mg Take 1 [facility] n (LIPITOR) 07-0930 tablet by it y of 40 mg 00:00: 00:00 mouth at [place] tablet 00 :00 bedtime. Medical Branch lisinopril 2019- No [id number] 20mg Take 1 [facility] 20 mg 07-09 tablet by ity of tablet 00:00: 00:00 mouth [place] 00 :00 daily. [facility] Branch tamsulosin 2019- No [id number] .4mg Take 1 [facility] 0.4 mg 24 07-09 capsule by ity of hr capsule 00:00: 00:00 mouth [place] 00 :00 daily. Medical Branch carvediloL 2019- No [id number] 6.25mg Take 1 [facility] 6.25 mg 07-09 tablet by ity of tablet 00:00: 00:00 mouth 2 [place] 00 :00 (two) Medical times Branch daily with meals. amLODIPine 2019- No [id number] 5mg Take 1 [facility] 5 mg tablet 07-09 tablet by it y of 00:00: 00:00 mouth [place] 00 :00 daily. Medical Branch TAMSULOSIN 2019-0 Yes [id number] TAKE 1 [facility] 0.4 mg 24 - CAPSULE BY ity of hr capsule 00:00: MOUTH ONCE [place] 00 DAILY Medical Branch CARVEDILOL 2019- Yes [id number] TAKE 1 [facility] 6.25 mg -31 TABLET BY ity of tablet 00:00: MOUTH [place] 00 TWICE Medical DAILY WITH Branch MEALS TAMSULOSIN 2019- No [id number] TAKE 1 [facility] 0.4 mg 24 -- CAPSULE BY ity of hr capsule 00:00: 00:00 MOUTH ONCE [place] 00 :00 DAILY Medical Branch CARVEDILOL 2020- No [id number] TAKE 1 [facility] 6.25 mg 1--07 TABLET BY ity of tablet 00:00: 00:00 MOUTH [place] 00 :00 TWICE Medical DAILY WITH Branch MEALS amLODIPine 2018-04 Yes [id number] 5mg Take 1 [facility] 5 mg tablet 2-02 tablet by ity of 00:00: mouth [place] 00 daily. Medical Branch amLODIPine 2018-04 2020- No [id number] 5mg Take 1 [facility] 5 mg tablet 2- 04- tablet by it y of 00:00: 00:00 mouth [place] 00 :00 daily. [facility] Branch lisinopril 2018-04 Yes [id number] 20mg Take 1 [facility] 20 mg 0-31 tablet by ity of tablet 00:00: mouth [place] 00 daily. [facility] Branch lisinopril 2018-04 2020- No [id number] 20mg Take 1 [facility] 20 mg 0-31 04- tablet by ity of tablet 00:00: 00:00 mouth [place] 00 :00 daily. Medical Branch aspirin 81 2018-04 Yes 81mg Take 1 [facility] rs mg chewable 0-25 tablet by ity of tablet 15:23: mouth [place] 01 daily. Medical Branch aspirin 81 2018-04 Yes 81mg Take 1 [facility] rs mg chewable 0-25 tablet by ity of tablet 15:23: mouth [place] 01 daily. Medical Branch aspirin 81 2018- Yes 81mg Take 1 [facility] rs mg chewable 0-25 tablet by ity of tablet 15:23: mouth [place] 01 daily. Medical Branch aspirin 81 2018- Yes 81mg Take 1 [facility] rs mg chewable 0-25 tablet by ity of tablet 15:23: mouth [place] 01 daily. Medical Branch aspirin 81 2018- Yes 81mg Take 1 [facility] rs mg chewable 0-25 tablet by ity of tablet 15:23: mouth [place] 01 daily. Medical Branch aspirin 81 2018- Yes 81mg Take 1 [facility] rs mg chewable 0-25 tablet by ity of tablet 15:23: mouth [place] 01 daily. Medical Branch aspirin 81 2018- Yes 81mg Take 1 [facility] rs mg chewable 0-25 tablet by ity of tablet 15:23: mouth [place] 01 daily. Medical Branch aspirin 81 2018- Yes 81mg Take 1 [facility] rs mg chewable 0-25 tablet by ity of tablet 15:23: mouth [place] 01 daily. Medical [facility] aspirin 81 2018- Yes 81mg Take 1 [facility] rs mg chewable 0-25 tablet by ity of tablet 15:23: mouth [place] 01 daily. Medical [facility] aspirin 81 2018- Yes 81mg Take 1 [facility] rs mg chewable 0-25 tablet by ity of tablet 15:23: mouth [place] 01 daily. Medical Branch aspirin 81 2018- Yes 81mg Take 1 [facility] rs mg chewable 0-25 tablet by ity of tablet 15:23: mouth [place] 01 daily. Medical [facility] aspirin 81 2018- Yes 81mg Take 1 [facility] rs mg chewable 0-25 tablet by ity of tablet 15:23: mouth [place] 01 daily. Medical [facility] aspirin 81 2018- Yes 81mg Take 1 [facility] rs mg chewable 0-25 tablet by ity of tablet 15:23: mouth [place] 01 daily. Medical Branch aspirin 81 2018- Yes 81mg Take 1 [facility] rs mg chewable 0-25 tablet by ity of tablet 15:23: mouth [place] 01 daily. Medical Branch aspirin 81 2018- Yes 81mg Take 1 [facility] rs mg chewable 0-25 tablet by ity of tablet 15:23: mouth [place] 01 daily. Medical [facility] aspirin 81 2018- Yes 81mg Take 1 [facility] rs mg chewable 0-25 tablet by ity of tablet 15:23: mouth [place] 01 daily. Medical Branch aspirin 81 2018- Yes 81mg Take 1 [facility] rs mg chewable 0-25 tablet by ity of tablet 15:23: mouth [place] 01 daily. Medical [facility] aspirin 81 2018- Yes 81mg Take 1 [facility] rs mg chewable 0-25 tablet by ity of tablet 15:23: mouth [place] 01 daily. Medical [facility] aspirin 81 2018- Yes 81mg Take 1 [facility] rs mg chewable 0-25 tablet by ity of tablet 15:23: mouth [place] 01 daily. Medical [facility] aspirin 81 2018- Yes 81mg Take 1 [facility] rs mg chewable 0-25 tablet by ity of tablet 15:23: mouth [place] 01 daily. Medical [facility] aspirin 81 2018- Yes 81mg Take 1 [facility] rs mg chewable 0-25 tablet by ity of tablet 15:23: mouth [place] 01 daily. Medical [facility] aspirin 81 2018- Yes 81mg Take 1 [facility] rs mg chewable 0-25 tablet by ity of tablet 15:23: mouth [place] 01 daily. Medical [facility] aspirin 81 2018- Yes 81mg Take 1 [facility] rs mg chewable 0-25 tablet by ity of tablet 15:23: mouth [place] 01 daily. Medical Branch aspirin 81 2018- Yes 81mg Take 1 [facility] rs mg chewable 0-25 tablet by ity of tablet 15:23: mouth [place] 01 daily. Medical Branch aspirin 81 2018- Yes 81mg Take 1 [facility] rs mg chewable 0-25 tablet by ity of tablet 15:23: mouth [place] 01 daily. [facility] aspirin 81 2018- Yes 81mg Take 1 [facility] rs mg chewable 0-25 tablet by ity of tablet 15:23: mouth [place] 01 daily. Medical [facility] aspirin 81 2018- Yes 81mg Take 1 [facility] rs mg chewable 0-25 tablet by ity of tablet 15:23: mouth [place] 01 daily. Medical [facility] aspirin 81 2018- Yes 81mg Take 1 [facility] rs mg chewable 0-25 tablet by ity of tablet 15:23: mouth [place] 01 daily. Medical [facility] aspirin 81 2018- Yes 81mg Take 1 [facility] rs mg chewable 0-25 tablet by ity of tablet 15:23: mouth [place] 01 daily. Medical [facility] aspirin 81 2018- Yes 81mg Take 1 [facility] rs mg chewable 0-25 tablet by ity of tablet 10:23: mouth [place] 01 daily. Medical [facility] aspirin 81 2018- Yes 81mg Take 1 [facility] rs mg chewable 0-25 tablet by ity of tablet 10:23: mouth [place] 01 daily. Medical [facility] aspirin 81 2018- Yes 81mg Take 1 [facility] rs mg chewable 0-25 tablet by ity of tablet 10:23: mouth [place] 01 daily. Medical Branch atorvastati 2018- 2020- No [id number] 40mg Take 1 [facility] n (LIPITOR) 0-25 10-25 tablet by it y of 40 mg 00:00: 04:59 mouth at [place] tablet 00 :00 bedtime. Medical Branch atorvastati 2018- 2020- No [id number] 40mg Take 1 [facility] n (LIPITOR) 0-25 04-07 tablet by it y of 40 mg 00:00: 00:00 mouth at [place] tablet 00 :00 bedtime. Medical Branch bacitracin 2019- No [id number] Apply to [facility] 500 - 08- affected ity of unit/gram 00:00: 04:59 area(s) 4 [place] ointment 00 :00 (four) Medical times Branch daily for 10 days. bacitracin 2018- 2019- No [id number] Apply to [facility] 500 10-24 08- affected ity of unit/gram 00:00: 04:59 area(s) 4 [place] ointment 00 :00 (four) Medical times Branch daily for 10 days. TAMSULOSIN Yes [id number] TAKE 1 [facility] 0.4 mg 24 6-24 CAPSULE BY ity of hr capsule 00:00: MOUTH ONCE [place] 00 DAILY Medical Branch TAMSULOSIN Yes [id number] TAKE 1 [facility] 0.4 mg 24 6-24 CAPSULE BY ity of hr capsule 00:00: MOUTH ONCE [place] 00 DAILY [facility] TAMSULOSIN Yes [id number] TAKE 1 [facility] 0.4 mg 24 6-24 CAPSULE BY ity of hr capsule 00:00: MOUTH ONCE [place] 00 DAILY [facility] TAMSULOSIN Yes [id number] TAKE 1 [facility] 0.4 mg 24 6-24 CAPSULE BY ity of hr capsule 00:00: MOUTH ONCE [place] 00 DAILY [facility] amLODIPine Yes [id number] 5mg Take 1 [facility] n[facility] 5 mg tablet 5-09 tablet by ity of 00:00: mouth [place] 00 daily. Medical Branch amLODIPine Yes [id number] 5mg Take 1 [facility] n[facility] 5 mg tablet 5-09 tablet by ity of 00:00: mouth [place] 00 daily. Medical Branch amLODIPine Yes [id number] 5mg Take 1 [facility] n[facility] 5 mg tablet 5-09 tablet by ity of 00:00: mouth [place] 00 daily. Medical Branch amLODIPine Yes [id number] 5mg Take 1 [facility] n[facility] 5 mg tablet 5-09 tablet by ity of 00:00: mouth [place] 00 daily. Medical Branch lisinopril 0 Yes [id number] 20mg Take 1 [facility] n[facility] 20 mg 4-23 tablet by ity of tablet 00:00: mouth [place] 00 daily. Medical Branch lisinopril 0 Yes [id number] 20mg Take 1 [facility] nivers 20 mg 4-23 tablet by ity of tablet 00:00: mouth [place] 00 daily. Medical Branch lisinopril Yes [id number] 20mg Take 1 [facility] nivers 20 mg 4-23 tablet by ity of tablet 00:00: mouth [place] 00 daily. Medical Branch lisinopril 2019-0 Yes [id number] 20mg Take 1 [facility] nivers 20 mg 4-23 tablet by ity of tablet 00:00: mouth [place] 00 daily. Medical Branch tiZANidine 2017-04 Yes 4mg Take 1 [facility] rs 4 mg tablet 1-13 tablet by ity of 00:00: mouth [place] 00 every 8 Medical (eight) Branch hours as needed (muscle pain or spasm). tiZANidine 2017-04 Yes 4mg Take 1 [facility] rs 4 mg tablet 1-13 tablet by ity of 00:00: mouth [place] 00 every 8 Medical (eight) Branch hours as needed (muscle pain or spasm). tiZANidine 2017-04 Yes 4mg Take 1 [facility] rs 4 mg tablet 1-13 tablet by ity of 00:00: mouth [place] 00 every 8 Medical (eight) Branch hours as needed (muscle pain or spasm). tiZANidine 2017-04 Yes 4mg Take 1 [facility] rs 4 mg tablet 1-13 tablet by ity of 00:00: mouth [place] 00 every 8 Medical (eight) Branch hours as needed (muscle pain or spasm). tiZANidine 2017-04 Yes 4mg Take 1 [facility] rs 4 mg tablet 1-13 tablet by ity of 00:00: mouth [place] 00 every 8 Medical (eight) Branch hours as needed (muscle pain or spasm). tiZANidine 2017-04 2020- No 4mg Take 1 [facility] ers 4 mg tablet 1-13 04-07 tablet by it y of 00:00: 00:00 mouth [place] 00 :00 every 8 Medical (eight) Branch hours as needed (muscle pain or spasm). carvedilol 2017-04 Yes [id number] 6.25mg Take 1 [facility] 6.25 mg 0-05 tablet by ity of tablet 00:00: mouth 2 00 (two) Medical times Branch daily with meals. carvedilol 2017-04 Yes [id number] 6.25mg Take 1 [facility] 6.25 mg 0-05 tablet by ity of tablet 00:00: mouth 2 [place] 00 (two) Medical times Branch daily with meals. carvedilol 2017-04 Yes [id number] 6.25mg Take 1 [facility] 6.25 mg 0-05 tablet by ity of tablet 00:00: mouth 2 (two) Medical times [place] daily with meals. carvedilol 2018-1 Yes [id number] 6.25mg Take 1 [facility] 6.25 mg 0-05 tablet by ity of tablet 00:00: mouth 2 [place] (two) [facility] times [place] daily with meals. No known [facility] Immunizations Ordered Filled Immunization Date Status Comments [facility] e Immunization Name Name SARS-COV-2 COVID-19 2021-01-30 Completed Unive rsity of PFIZER VACCINE 00:00:00 [facility] Pneumococcal 2020-12-15 Completed University o f Polysaccharide, 00:00:00 [place] Med ical PPSV23 (PNEUMOVAX) Branch Pneumococcal 2020-12-15 Completed University o f Polysaccharide, 00:00:00 [place] Med ical PPSV23 (PNEUMOVAX) Branch Pneumococcal 2020-12-15 Completed [facility] o f Polysaccharide, 00:00:00 [place] Med ical PPSV23 (PNEUMOVAX) Branch SARS-COV-2 COVID-19 2020-06-21 Completed Unive rsity of PFIZER VACCINE 00:00:00 [facility] SARS-COV-2 COVID-19 2020-06-21 Completed Unive rsity of PFIZER VACCINE 00:00:00 [facility] SARS-COV-2 COVID-19 2020-06-21 Completed Unive rsity of PFIZER VACCINE 00:00:00 [facility] SARS-COV-2 COVID-19 2020-06-21 Completed Unive rsity of PFIZER VACCINE 00:00:00 [facility] SARS-COV-2 COVID-19 2020-06-21 Completed Unive rsity of PFIZER VACCINE 00:00:00 [facility] SARS-COV-2 COVID-19 2020-06-21 Completed Unive rsity of PFIZER VACCINE 00:00:00 [facility] SARS-COV-2 COVID-19 2020-06-21 Completed Unive rsity of PFIZER VACCINE 00:00:00 [facility] SARS-COV-2 COVID-19 2020-06-21 Completed Unive rsity of PFIZER VACCINE 00:00:00 [facility] SARS-COV-2 COVID-19 2020-06-21 Completed Unive rsity of PFIZER VACCINE 00:00:00 [facility] SARS-COV-2 COVID-19 2020-06-21 Completed Unive rsity of PFIZER VACCINE 00:00:00 [facility] SARS-COV-2 COVID-19 2020-05-31 Completed Unive rsity of PFIZER VACCINE 00:00:00 [facility] SARS-COV-2 COVID-19 2020-05-31 Completed Unive rsity of PFIZER VACCINE 00:00:00 [facility] SARS-COV-2 COVID-19 2020-05-31 Completed Unive rsity of PFIZER VACCINE 00:00:00 [facility] SARS-COV-2 COVID-19 2020-05-31 Completed Unive rsity of PFIZER VACCINE 00:00:00 [facility] SARS-COV-2 COVID-19 2020-05-31 Completed Unive rsity of PFIZER VACCINE 00:00:00 [facility] SARS-COV-2 COVID-19 2020-05-31 Completed Unive rsity of PFIZER VACCINE 00:00:00 [facility] SARS-COV-2 COVID-19 2020-05-31 Completed Unive rsity of PFIZER VACCINE 00:00:00 [facility] SARS-COV-2 COVID-19 2020-05-31 Completed Unive rsity of PFIZER VACCINE 00:00:00 [facility] SARS-COV-2 COVID-19 2020-05-31 Completed Unive rsity of PFIZER VACCINE 00:00:00 [facility] SARS-COV-2 COVID-19 2020-05-31 Completed Unive rsity of PFIZER VACCINE 00:00:00 [facility] Pneumococcal 2020-03-03 Completed University o f Polysaccharide, 00:00:00 [place] [facility] PPSV23 (PNEUMOVAX) Branch Pneumococcal 2020-03-03 Completed University o f Polysaccharide, 00:00:00 [place] [facility] PPSV23 (PNEUMOVAX) Branch Pneumococcal 2020-03-03 Completed University o f Polysaccharide, 00:00:00 [place] [facility] PPSV23 (PNEUMOVAX) Branch Pneumococcal 2020-03-03 Completed University o f Polysaccharide, 00:00:00 [place] [facility] PPSV23 (PNEUMOVAX) Branch Pneumococcal 2020-03-03 Completed University o f Polysaccharide, 00:00:00 [place] [facility] PPSV23 (PNEUMOVAX) Branch Pneumococcal 2020-03-03 Completed University o f Polysaccharide, 00:00:00 [place] [facility] PPSV23 (PNEUMOVAX) Branch Pneumococcal 2020-03-03 Completed University o f Polysaccharide, 00:00:00 [place] [facility] PPSV23 (PNEUMOVAX) Branch Pneumococcal 2020-03-03 Completed University o f Polysaccharide, 00:00:00 [place] [facility] PPSV23 (PNEUMOVAX) Branch Pneumococcal 2020-03-03 Completed University o f Polysaccharide, 00:00:00 [place] [facility] PPSV23 (PNEUMOVAX) Branch Pneumococcal 2020-03-03 Completed University o f Polysaccharide, 00:00:00 [place] [facility] PPSV23 (PNEUMOVAX) Branch Pneumococcal 2020-03-03 Completed University o f Polysaccharide, 00:00:00 [place] [facility] PPSV23 (PNEUMOVAX) Branch Pneumococcal 2020-03-03 Completed University o f Polysaccharide, 00:00:00 [place] [facility] PPSV23 (PNEUMOVAX) Branch Pneumococcal 2020-03-03 Completed University o f Polysaccharide, 00:00:00 [place] [facility] PPSV23 (PNEUMOVAX) Branch Pneumococcal 2020-03-03 Completed University o f Polysaccharide, 00:00:00 [place] [facility] PPSV23 (PNEUMOVAX) Branch Pneumococcal 2020-03-03 Completed University o f Polysaccharide, 00:00:00 [place] [facility] PPSV23 (PNEUMOVAX) Branch Pneumococcal 2020-03-03 Completed University o f Polysaccharide, 00:00:00 [place] [facility] PPSV23 (PNEUMOVAX) Branch Pneumococcal 2020-03-03 Completed University o f Polysaccharide, 00:00:00 [place] [facility] PPSV23 (PNEUMOVAX) Branch Pneumococcal 2020-03-03 Completed University o f Polysaccharide, 00:00:00 [place] [facility] PPSV23 (PNEUMOVAX) Branch Pneumococcal 2020-03-03 Completed University o f Polysaccharide, 00:00:00 [place] [facility] PPSV23 (PNEUMOVAX) Branch Pneumococcal 2020-03-03 Completed University o f Polysaccharide, 00:00:00 [place] [facility] PPSV23 (PNEUMOVAX) Branch Pneumococcal 2020-03-03 Completed University o f Polysaccharide, 00:00:00 [place] [facility] PPSV23 (PNEUMOVAX) Branch Pneumococcal 2020-03-03 Completed University o f Polysaccharide, 00:00:00 [facility] PPSV23 (PNEUMOVAX) Branch Pneumococcal 2020-03-03 Completed University o f Polysaccharide, 00:00:00 [facility] PPSV23 (PNEUMOVAX) Branch Influenza Virus 2019-12-04 Completed Universit y of Vaccine Quad ID 00:00:00 [facility] ica 18-64 YRS Branch Influenza Virus 2019-12-04 Completed Universit y of Vaccine Quad ID 00:00:00 [facility] ica 18-64 YRS Branch Influenza Virus 2019-12-04 Completed Universit y of Vaccine Quad ID 00:00:00 [facility] 18-64 YRS Branch Influenza Virus 2019-12-04 Completed Universit y of Vaccine Quad ID 00:00:00 [facility] 18-64 YRS [place] Influenza Virus 2019-12-04 Completed Universit y of Vaccine Quad ID 00:00:00 [facility] 18-64 YRS [place] Influenza Virus 2019-12-04 Completed Universit y of Vaccine Recomb Quad 00:00:00 [place] [facility], Preserv and ABX Branc h Free 18-64 [facility] Influenza Virus 2019-12-04 Completed Universit y of Vaccine Quad ID 00:00:00 [facility] ica 18-64 YRS Branch Influenza Virus 2019-12-04 Completed Universit y of Vaccine Recomb Quad 00:00:00 [place] [facility], Preserv and ABX Branc h Free 18-64 YRS Influenza Virus 2019-12-04 Completed Universit y of Vaccine Quad ID 00:00:00 [facility] ica 18-64 YRS [place] Influenza Virus 2019-12-04 Completed Universit y of Vaccine Recomb Quad 00:00:00 [place] [facility], Preserv and ABX Branc h Free 18-64 YRS Influenza Virus 2019-12-04 Completed Universit y of Vaccine Quad ID 00:00:00 [facility] ical 18-64 YRS [place] Influenza Virus 2019-12-04 Completed Universit y of Vaccine Recomb Quad 00:00:00 [place] [facility], Preserv and ABX Branc h Free 18-64 YRS Influenza Virus 2019-12-04 Completed Universit y of Vaccine Quad ID 00:00:00 [facility] 18-64 YRS [place] Influenza Virus 2019-12-04 Completed Universit y of Vaccine Recomb Quad 00:00:00 [place] [facility], Preserv and ABX Branc h Free 18-64 YRS Influenza Virus 2019-12-04 Completed Universit y of Vaccine Quad ID 00:00:00 [place] [facility] 18-64 YRS Branch Influenza Virus 2019-12-04 Completed Universit y of Vaccine Recomb Quad 00:00:00 [place] [facility], Preserv and ABX Branc h Free 18-64 YRS Influenza Virus 2019-12-04 Completed Universit y of Vaccine Quad ID 00:00:00 [place] [facility] 18-64 YRS Branch Influenza Virus 2019-12-04 Completed Universit y of Vaccine Recomb Quad 00:00:00 [place] [facility], Preserv and ABX Branc h Free 18-64 YRS Influenza Virus 2019-12-04 Completed Universit y of Vaccine Quad ID 00:00:00 [facility] 18-64 YRS Branch Influenza Virus 2019-12-04 Completed Universit y of Vaccine Recomb Quad 00:00:00 [place] [facility], Preserv and ABX Branc h Free 18-64 YRS Influenza Virus 2019-12-04 Completed Universit y of Vaccine Quad ID 00:00:00 [facility] 18-64 YRS Branch Influenza Virus 2019-12-04 Completed Universit y of Vaccine Recomb Quad 00:00:00 [place] [facility], Preserv and ABX Branc h Free 18-64 YRS Influenza Virus 2019-12-04 Completed Universit y of Vaccine Quad ID 00:00:00 [facility] 18-64 YRS Branch Influenza Virus 2019-12-04 Completed Universit y of Vaccine Recomb Quad 00:00:00 [place] [facility], Preserv and ABX Branc h Free 18-64 YRS Influenza Virus 2019-12-04 Completed Universit y of Vaccine Quad ID 00:00:00 [facility] ical 18-64 YRS Branch Influenza Virus 2019-12-04 Completed Universit y of Vaccine Recomb Quad 00:00:00 [place] [facility], Preserv and ABX Branc h Free 18-64 YRS Influenza Virus 2019-12-04 Completed Universit y of Vaccine Quad ID 00:00:00 [facility] ical 18-64 YRS Branch Influenza Virus 2019-12-04 Completed Universit y of Vaccine Recomb Quad 00:00:00 [place] [facility], Preserv and ABX Branc h Free 18-64 YRS Influenza Virus 2019-12-04 Completed Universit y of Vaccine Quad ID 00:00:00 [facility] 18-64 YRS Branch Influenza Virus 2019-12-04 Completed Universit y of Vaccine Recomb Quad 00:00:00 [place] [facility], Preserv and ABX Branc h Free 18-64 YRS Influenza Virus 2019-12-04 Completed Universit y of Vaccine Quad ID 00:00:00 [place] [facility] 18-64 YRS Branch Influenza Virus 2019-12-04 Completed Universit y of Vaccine Quad ID 00:00:00 [place] [facility] 18-64 YRS Branch Influenza Virus 2019-12-04 Completed Universit y of Vaccine Recomb Quad 00:00:00 [place] [facility], Preserv and ABX Branc h Free 18-64 YRS Influenza Virus 2019-12-04 Completed Universit y of Vaccine Recomb Quad 00:00:00 [place] [facility], Preserv and ABX Branc h Free 18-64 YRS Influenza Virus 2019-12-04 Completed Universit y of Vaccine Quad ID 00:00:00 [place] [facility] 18-64 YRS [place] Influenza Virus 2019-12-04 Completed Universit y of Vaccine Recomb Quad 00:00:00 [place] [facility], Preserv and ABX Branc h Free 18-64 YRS Influenza Virus 2019-12-04 Completed Universit y of Vaccine Quad ID 00:00:00 [place] [facility] 18-64 YRS Branch Influenza Virus 2019-12-04 Completed Universit y of Vaccine Recomb Quad 00:00:00 [place] [facility], Preserv and ABX Branc h Free 18-64 YRS Influenza Virus 2019-12-04 Completed Universit y of Vaccine Quad ID 00:00:00 [place] [facility] 18-64 YRS Branch Influenza Virus 2019-12-04 Completed Universit y of Vaccine Recomb Quad 00:00:00 [place] [facility], Preserv and ABX Branc h Free 18-64 YRS Influenza Virus 2019-12-04 Completed Universit y of Vaccine Quad ID 00:00:00 [place] [facility] 18-64 YRS Branch Influenza Virus 2019-12-04 Completed Universit y of Vaccine Recomb Quad 00:00:00 [place] [facility], Preserv and ABX Branc h Free 18-64 YRS Influenza Virus 2019-12-04 Completed Universit y of Vaccine Quad ID 00:00:00 [place] [facility] 18-64 YRS [place] Influenza Virus 2019-12-04 Completed Universit y of Vaccine Recomb Quad 00:00:00 [place] [facility], Preserv and ABX Branc h Free 18-64 YRS Influenza Virus 2019-12-04 Completed Universit y of Vaccine Quad ID 00:00:00 [place] [facility] 18-64 YRS Branch Influenza Virus 2019-12-04 Completed Universit y of Vaccine Recomb Quad 00:00:00 [place] [facility], Preserv and ABX Branc h Free 18-64 YRS Influenza Virus 2019-12-04 Completed Universit y of Vaccine Quad ID 00:00:00 [place] [facility] 18-64 YRS Branch Influenza Virus 2019-12-04 Completed Universit y of Vaccine Recomb Quad 00:00:00 [place] [facility], Preserv and ABX Branc h Free 18-64 YRS Influenza Virus 2019-12-04 Completed Universit y of Vaccine Quad ID 00:00:00 [place] [facility] 18-64 YRS Branch Influenza Virus 2019-12-04 Completed Universit y of Vaccine Recomb Quad 00:00:00 [place] [facility], Preserv and ABX Branc h Free 18-64 YRS Influenza Virus 2019-01-10 Completed Universit y of Vaccine Quad ID 00:00:00 [facility] ical 18-64 YRS Branch Influenza Virus 2019-01-10 Completed Universit y of Vaccine Quad ID 00:00:00 [place] [facility] 18-64 YRS Branch Influenza Virus 2019-01-10 Completed Universit y of Vaccine Quad ID 00:00:00 [facility] ical 18-64 YRS Branch Influenza Virus 2019-01-10 Completed Universit y of Vaccine Quad ID 00:00:00 [facility] ical 18-64 YRS Branch Influenza Virus 2019-01-10 Completed Universit y of Vaccine Quad ID 00:00:00 [facility] ical 18-64 YRS Branch Influenza Virus 2019-01-10 Completed Universit y of Vaccine Quad ID 00:00:00 [place] [facility] 18-64 YRS Branch Influenza Virus 2019-01-10 Completed Universit y of Vaccine Quad ID 00:00:00 [place] [facility] 18-64 YRS Branch Influenza Virus 2019-01-10 Completed Universit y of Vaccine Quad ID 00:00:00 [place] [facility] 18-64 YRS Branch Influenza Virus 2019-01-10 Completed Universit y of Vaccine Quad ID 00:00:00 [place] [facility] 18-64 YRS Branch Influenza Virus 2019-01-10 Completed Universit y of Vaccine Quad ID 00:00:00 [facility] 18-64 YRS Branch Influenza Virus 2019-01-10 Completed Universit y of Vaccine Quad ID 00:00:00 [facility] ical 18-64 YRS Branch Influenza Virus 2019-01-10 Completed Universit y of Vaccine Quad ID 00:00:00 [place] [facility] 18-64 YRS Branch Influenza Virus 2019-01-10 Completed Universit y of Vaccine Quad ID 00:00:00 [facility] 18-64 YRS Branch Influenza Virus 2019-01-10 Completed Universit y of Vaccine Quad ID 00:00:00 [facility] ical 18-64 YRS Branch Influenza Virus 2019-01-10 Completed Universit y of Vaccine Quad ID 00:00:00 [facility] ical 18-64 YRS Branch Influenza Virus 2019-01-10 Completed Universit y of Vaccine Quad ID 00:00:00 [facility] ical 18-64 YRS Branch Influenza Virus 2019-01-10 Completed Universit y of Vaccine Quad ID 00:00:00 [facility] ical 18-64 YRS Branch Influenza Virus 2019-01-10 Completed Universit y of Vaccine Quad ID 00:00:00 [facility] ical 18-64 YRS Branch Influenza Virus 2019-01-10 Completed Universit y of Vaccine Quad ID 00:00:00 [facility] ical 18-64 YRS Branch Influenza Virus 2019-01-10 Completed Universit y of Vaccine Quad ID 00:00:00 [facility] 18-64 YRS Branch Influenza Virus 2019-01-10 Completed Universit y of Vaccine Quad ID 00:00:00 [facility] 18-64 YRS Branch Influenza Virus 2019-01-10 Completed Universit y of Vaccine Quad ID 00:00:00 [facility] 18-64 YRS Branch Influenza Virus 2019-01-10 Completed Universit y of Vaccine Quad ID 00:00:00 [facility] ical 18-64 YRS Branch Influenza Virus 2019-01-10 Completed Universit y of Vaccine Quad ID 00:00:00 [facility] ical 18-64 YRS Branch Influenza Virus 2019-01-10 Completed Universit y of Vaccine Quad ID 00:00:00 [facility] ical 18-64 YRS Branch Influenza Virus 2019-01-10 Completed Universit y of Vaccine Quad ID 00:00:00 [facility] ical 18-64 YRS Branch Influenza Virus 2019-01-10 Completed Universit y of Vaccine Quad ID 00:00:00 [facility] ical 18-64 YRS [place] Influenza Virus 2019-01-10 Completed Universit y of Vaccine Quad ID 00:00:00 [facility] ical 18-64 YRS Branch Influenza Virus 2019-01-10 Completed Universit y of Vaccine Quad ID 00:00:00 [place] [facility] 18-64 YRS Branch Influenza Virus 2019-01-10 Completed Universit y of Vaccine Quad ID 00:00:00 [place] [facility] 18-64 YRS Branch Influenza Virus 2019-01-10 Completed Universit y of Vaccine Quad ID 00:00:00 [facility] ical 18-64 YRS Branch Influenza Virus 2019-01-10 Completed Universit y of Vaccine Quad ID 00:00:00 [facility] 18-64 YRS Branch Tdap 2012-11-02 Completed University of 00:00:00 [facility] Branch Tdap 2012-11-02 Completed University of 00:00:00 [facility] Branch Tdap 2012-11-02 Completed University of 00:00:00 [facility] Branch Tdap 2012-11-02 Completed University of 00:00:00 [facility] Tdap 2012-11-02 Completed University of 00:00:00 [facility] Branch Tdap 2012-11-02 Completed University of 00:00:00 [facility] Branch Tdap 2012-11-02 Completed University of 00:00:00 [facility] Branch TDAP 2012-11-02 Completed University of 00:00:00 [facility] Branch TDAP 2012-11-02 Completed University of 00:00:00 [facility] Branch TDAP 2012-11-02 Completed University of 00:00:00 [facility] Branch TDAP 2012-11-02 Completed University of 00:00:00 [facility] TDAP 2012-11-02 Completed University of 00:00:00 [facility] Branch TDAP 2012-11-02 Completed University of 00:00:00 [facility] Branch TDAP 2012-11-02 Completed University of 00:00:00 [facility] TDAP 2012-11-02 Completed University of 00:00:00 [facility] Branch TDAP 2012-11-02 Completed University of 00:00:00 [facility] Branch TDAP 2012-11-02 Completed University of 00:00:00 [facility] Branch TDAP 2012-11-02 Completed University of 00:00:00 [facility] Branch TDAP 2012-11-02 Completed University of 00:00:00 [facility] Branch TDAP 2012-11-02 Completed University of 00:00:00 [facility] Branch TDAP 2012-11-02 Completed University of 00:00:00 [facility] Branch TDAP 2012-11-02 Completed University of 00:00:00 [facility] Branch TDAP 2012-11-02 Completed University of 00:00:00 [facility] Branch TDAP 2012-11-02 Completed University of 00:00:00 [facility] TDAP 2012-11-02 Completed University of 00:00:00 [facility] TDAP 2012-11-02 Completed University of 00:00:00 [facility] Branch TDAP 2012-11-02 Completed University of 00:00:00 [facility] TDAP 2012-11-02 Completed University of 00:00:00 [facility] TDAP 2012-11-02 Completed University of 00:00:00 [facility] Branch TDAP 2012-11-02 Completed University of 00:00:00 [facility] Branch TDAP 2012-11-02 Completed University of 00:00:00 [facility] Branch TDAP 2012-11-02 Completed University of 00:00:00 [facility] Branch TDAP 2012-11-02 Completed University of 00:00:00 [facility] Branch TDAP 2012-11-02 Completed University of 00:00:00 [facility] Branch TDAP 2012-11-02 Completed University of 00:00:00 [facility] Branch Tdap 2012-11-02 Completed University of 00:00:00 [facility] Branch Tdap 2012-11-02 Completed University of 00:00:00 [facility] Branch Tdap 2012-11-02 Completed University of 00:00:00 [facility] Vital Signs Vital Name Observation Time Observation Value Comments Source HEIGHT 2020-11-04 172.7 cm 21:44:00 WEIGHT 2020-11-04 95.709 kg 21:44:00 HEIGHT 2020-11-04 172.7 cm 21:44:00 WEIGHT 2020-11-04 95.709 kg 21:44:00 Systolic blood 2020-09-02 143 mm[Hg] University of pressure 15:15:00 [facility] Diastolic blood 2020-09-02 90 mm[Hg] University o f pressure 15:15:00 [facility] Heart rate 2020-09-02 65 /min University of 15:15:00 [facility] Body height 2020-09-02 175.3 cm University of 15:12:00 [facility] Body weight 2020-09-02 98.431 kg University of 15:12:00 [facility] BMI 2020-09-02 32.05 kg/m2 University of 15:12:00 [facility] Systolic blood 2020-09-02 143 mm[Hg] University of pressure 15:15:00 [facility] Diastolic blood 2020-09-02 90 mm[Hg] University o f pressure 15:15:00 [facility] Heart rate 2020-09-02 65 /min University of 15:15:00 [facility] Body height 2020-09-02 175.3 cm University of 15:12:00 [facility] Body weight 2020-09-02 98.431 kg University of 15:12:00 [facility] BMI 2020-09-02 32.05 kg/m2 University of 15:12:00 [facility] Systolic blood 2020-05-09 145 mm[Hg] University of pressure 15:33:00 [facility] Diastolic blood 2020-05-09 99 mm[Hg] University o f pressure 15:33:00 [facility] Heart rate 2020-05-09 73 /min University of 15:04:00 [facility] Body temperature 2020-05-09 36 [place] University of 15:04:00 [facility] Body height 2020-05-09 175.3 cm University of 15:04:00 [facility] Body weight 2020-05-09 102.967 kg University of 15:04:00 [facility] BMI 2020-05-09 33.52 kg/m2 University of 15:04:00 [facility] Oxygen saturation 2020-05-09 99 /min University in Arterial blood 15:04:00 [facility] by Pulse oximetry Branch Systolic blood 2020-03-03 143 mm[Hg] patient has not University of pressure 16:38:00 taken his [place] [facility] medications today Branch Diastolic blood 2020-03-03 93 mm[Hg] patient has not Universit y of pressure 16:38:00 taken his [place] [facility] medications today Branch Heart rate 2020-03-03 98 /min University of 16:38:00 [facility] Body temperature 2020-03-03 36.61 [place] University of 16:38:00 [facility] Body height 2020-03-03 175.3 cm University of 16:38:00 [facility] Body weight 2020-03-03 102.059 kg University of 16:38:00 [facility] BMI 2020-03-03 33.23 kg/m2 University of 16:38:00 [facility] Systolic blood 2018-10-30 155 mm[Hg] [place] of pressure 14:14:00 [facility] Diastolic blood 2018-10-30 98 mm[Hg] [place] o f pressure 14:14:00 [facility] Heart rate 2018-10-30 63 /min University 14:14:00 [facility] Body temperature 2018-10-30 37.06 [place] [facility] 14:14:00 [facility] Respiratory rate 2018-10-30 16 /min [facility] 14:14:00 [facility] Body height 2018-10-30 175.3 cm [facility] 14:14:00 [facility] Body weight 2018-10-30 103.42 kg [facility] 14:14:00 [facility] BMI 2018-10-30 33.67 kg/m2 [facility] 14:14:00 [facility] Procedures Procedure Date / Time Performing Clinician Source Performed SARS-COV-2 COVID-19 2021-01-30 14:05:55 Doctor Unassigned, [facility] VACCINE,0.3ML,IM (PFIZER) [facility] VACCINATIONS - CONSENTS, 2020-12-15 05:01:00 Doctor Unawayneigned, [facility] ELIGIBILITY, HISTORY [facility] SCANNED LAB RESULTS 2020-09-10 05:01:00 Doctor Unassigned, [facility] PHYSICIAN CERTIFICATION 2020-05-16 06:01:00 Doctor Unassigned, U [facility] STATEMENT [facility] [place] URINALYSIS 2020-03-03 18:33:00 Elier Trani ty [facility] PROSTATIC SPECIFIC 2020-03-03 17:14:00 Elier Tran [facility] ANTIGEN SCREEN [facility] THYROID STIMULATING 2020-03-03 17:14:00 Elier Tran [facility] HORMONE [facility] COMP. METABOLIC PANEL 2020-03-03 17:14:00 [id number] LIPID PANEL ([id number])(TOTAL 2020-03-03 17:14:00 Elier Tran [facility] CHOLESTEROL, [facility] TRIGLYCERIDES, HDL) CBC WITHOUT DIFF 2020-03-03 17:14:[address] [facility] GLYCOSYLATED HEMOGLOBIN 2020-03-03 17:14:00 Elier Tran [facility] (A1C) [facility] VITAMIN D, 25-OH 2020-03-03 17:14:[address] [facility] PNEUMOCOCCAL VACCINE, 2020-03-03 16:57:58 [facility] 23-VALENT (PNEUMOVAX) Medical anch VACCINATIONS - CONSENTS, 2019-12-27 05:01:00 Doctor Denise, [facility] ELIGIBILITY, HISTORY [facility] MEDICATION HISTORY 2018-12-06 05:01:00 Doctor Denise [facility] RECONCILIATION FORM [facility] Sergey ch AUTHORIZATION FOR RELEASE 2018-09-29 05:01:00 Doctor Denise, [facility] PATIENT QUESTIONNAIRE 2015-07-10 05:01:00 Doctor Denise, [facility] Name Medical [place] PATIENT QUESTIONNAIRE 2015-06-19 05:01:00 Doctor Denise, [facility] Name Medical Branch Encounters Start End Encounter Admission Attending Care Care Encounter Source Date/Time Date/Time Type Type Clinicians Facility Department ID 2021-02-02 [facility] [place] [id number] 16:03:40 [facility] 2020-11-04 Inpatient UR ONEAL, [facility] General Med [id number] [facility] 21:10:00 MICHAEL 2021-01-30 2021-01-30 Outpatient Mirian [facility] [id number] Univers 10:10:00 09:04:47 BILL hannah [facility] 2021-01-30 2021-01-30 Imm/Inj Nurse, Adc Pob Immunization [facility] [id number] Univers 09:03:10 09:04:47 Visit Bill Kohli [id number] [facility] [id number] Bala H[place] [id number] [place] [address] 2020-12-15 2020-12-15 Orders Doctor HODGE [id number] Univers 00:00:00 00:00:00 Only Unassigned, ALETHEA [id number] ity of [place] [facility] [id number] Zak as [id number] [address] 2020-12-04 2020-12-04 Outpatient R [facility] [id number] [id number] Univers 10:30:00 10:30:00 WONDIFUL [id number] [facility]y [facility] [facility] 2020-12-04 2020-12-04 Outpatient Mirian EMMANUEL [facility] [id number] Univers 10:30:00 10:30:00 WONDIFUL ity o f [facility] 2020-11-24 2020-11-24 Outpatient R MAYKEL [facility] [id number] 69N-20 Univers 10:30:00 10:30:00 PABLO [id number] ity of [facility] 2020-11-04 2020-11-04 [facility]phone [facility] 1.2.840.114 [id number] 00:00:00 00:00:00 Wondiful A [facility] 350.1.13.10 [place] 4.2.7.2.686 Professio [phone] [place] [address] Office Building One 2020-11-04 2020-11-04 Jeramie Tran [facility] 1.2.840.114 [id number] Univers 00:00:00 00:00:00 Wondiful A Health 350.1.13.10 ity of [place] 4.2.7.2.686 [place] Professio [phone] [place] dical [address] Office Building One 2020-09-26 2020-09-26 [facility]phone [facility] 1.2.840.114 [id number] 00:00:00 00:00:00 W[facility]iful [facility] 350.1.13.10 [place] 4.2.7.2.686 Professio [phone] [place] [address] Office Building One 2020-09-26 2020-09-26 [facility]phone [facility] 1.2.840.114 [id number] Univers 00:00:00 00:00:00 Wondiful A [facility] 350.1.13.10 ity of [place] 4.2.7.2.686 [place] as Professio [phone] [address] Office [facility] One 2020-09-15 2020-09-15 Case Emmanuel [facility] 1.2.840.114 [id number] 00:00:00 00:00:00 Management Shantellful [facility] 350.1.13.10 [place] 4.2.7.2.686 Professio [phone] [address] One 2020-09-15 2020-09-15 Case Emmanuel [facility] 1.2.840.114 [id number] Univers 00:00:00 00:00:00 Management Shantellful [facility] 350.1.13.10 ity of [place] 4.2.7.2.686 [place] as Professio [phone] [address] One 2020-09-10 2020-09-10 Orders Doctor HODGE 1.2.840.114 [id number] 00:00:00 00:00:00 Only Unassigned, ALETHEA 350.1.13.10 [facility] 4.2.7.2.686 [phone] 009 2020-09-10 2020-09-10 Orders Doctor NAVEEN 1.2.840.114 [id number] [facility] 00:00:00 00:00:00 Only Unassigned, ALETHEA 350.1.13.10 ity of [facility] 4.2.7.2.686 Zak as [phone] [address] 2020-09-02 2020-09-02 Icing And Glaze Maker Lab, Adc Fam Pob I [facility] 1.2. 840.114 [id number] [facility] 11:08:48 11:28:48 Visit Elier Tran Health 350.1.13.1 0 ity of [place] 4.2.7.2.686 [place]ak as Professio [phone] [address] One 2020-09-02 2020-09-02 Office Emmanuel [facility] 1.2.840.114 [id number] [facility] 09:24:19 11:06:36 Visit Shantellful [facility] 350.1.13.10 ity of [place] 4.2.7.2.686 Zak as Professio [phone] Me dical nal [address] Office Building One 2020-09-02 2020-09-02 Office Emmanuel [facility] 1.2.840.114 [id number] 09:24:19 11:06:36 Visit Wondiful A [facility] 350.1.13.10 [place] 4.2.7.2.686 Professio [phone] nal 044 Office Building One 2020-09-02 2020-09-02 Outpatient R EMMANUEL [facility] [id number] N-20 Univers 10:30:00 10:30:00 WONDIFUL [id number] ity o f [facility] 2020-09-02 2020-09-02 Outpatient R EMMANUEL [facility] [id number] Univers 10:30:00 10:30:00 WONDIFUL ity o f [facility] 2020-06-21 2020-06-21 Outpatient [facility] [id number] Univers 08:25:00 08:25:00 [facility] 2020-06-20 2020-06-20 Outpatient R PAT [facility] [id number] 9N-20 Univers 11:00:00 11:00:00 TEJO [id number] [facility] 2020-06-20 2020-06-20 Outpatient R PAT [facility] [id number] Univers 11:00:00 11:00:00 TEKENY [facility] 2020-06-16 2020-06-16 Outpatient R [facility] [id number] -[id number] Univers 11:00:00 11:00:00 [id number] [facility] 2020-05-31 2020-05-31 Outpatient R LENCHO [facility] [id number] Univers 09:40:00 09:40:00 CHINO [facility] 2020-05-23 2020-05-23 Outpatient R ELMA AUSTIN [facility] [id number] [id number] Univers 10:30:00 10:30:00 [id number] [facility] 2020-05-16 2020-05-16 Kenia HODGE 1.2.840.114 [id number] Univers 00:00:00 00:00:00 Only Unassigned, ALETHEA 350.1.13.10 ity of [facility] 4.2.7.2.686 Zak as [phone] [facility] [address] [place] 2020-05-09 2020-05-09 [facility] [id number]-20 Univers 10:45:00 10:45:00 WONDIFUL [id number] ity o f [facility] 2020-05-09 2020-05-09 Urgent Provider, [facility] 1.2.840.114 [id number] Univers 08:37:04 09:28:57 Care Malissa Roque [facility] 350.1.13.10 ity of [place] 4.2.7.2.686 Zak as Narcisaio [phone] [place] [address] [address] Office Building One 2020-05-09 2020-05-09 Outpatient R JAYSON [facility] [id number] Univers 09:20:00 09:20:00 MALISSA ity of [facility] 2020-05-08 2020-05-08 [facility] [id number]-20 Univers 14:00:00 14:00:00 TEJO [id number] ity of [facility] 2020-05-06 2020-05-06 Outpatient R [facility] [id number] -20 Univers 11:00:00 11:00:00 [id number] ity of [facility] 2020-03-24 2020-03-24 Outpatient [facility] [id number] N-20 Univers 09:00:00 09:00:00 WONDIFUL [id number] ity o f [facility] 2020-03-24 2020-03-24 Outpatient [facility] [id number] Univers 09:00:00 09:00:00 WONDIFUL ity o f [facility] 2020-03-12 2020-03-12 [facility] PAT Franco 1.2.840.114 [id number] Univers 13:52:00 23:59:00 Encounter Abundio Govea 350.1.13.10 ity of [facility] 4.2.7.2.686 Zak as [phone] [address] 2020-03-12 2020-03-12 Outpatient R GILA, [facility] ACO [id number] Univers 00:00:00 00:00:00 ABUNDIO ity of [facility] 2020-03-12 2020-03-12 Case Emmanuel [facility] 1.2.840.114 [id number] Univers 00:00:00 00:00:00 Management [facility] 350.1.13.10 ity of [place] 4.2.7.2.686 Zak as Professio [phone] [address] Office [facility] One 2020-03-12 2020-03-12 Telephone [facility] 1.2.840.114 [id number] Univers 00:00:00 00:00:00 Wondiful A Health 350.1.13.10 ity of [place] 4.2.7.2.686 Zak as Professio [phone] [address] 2020-03-11 2020-03-11 Telephone Emmanuel [facility] 1.2.840.114 [id number] Univers 00:00:00 00:00:00 W[facility]iful [facility] 350.1.13.10 ity of [place] 4.2.7.2.686 Zak as Professio [phone] [address] Office [facility] One 2020-03-06 2020-03-06 Telephone [facility] 1.2.840.114 [id number] Univers 00:00:00 00:00:00 Wondiful A [facility] 350.1.13.10 ity of [place] 4.2.7.2.686 [place]ak as Professio [phone] [address] Office [facility] 2020-03-03 2020-03-03 Icing And Glaze Maker Lab, Adc Fam Pob I [facility] 1.2. 840.114 [id number] Univers 11:02:30 11:20:02 Visit Elier Tran [facility] 350.1.13.1 0 ity of [place] 4.2.7.2.686 [place]ak as Professio [phone] [address] Office [facility] One 2020-03-03 2020-03-03 Office Emmanuel [facility] 1.2.840.114 [id number] Univers 08:29:52 11:15:29 Visit [facility] 350.1.13.10 ity of [place] 4.2.7.2.686 [place]ak as Professio [phone] [address] 2020-03-03 2020-03-03 Outpatient R EMMANUEL [facility] [id number]-20 Univers 10:45:00 10:45:00 WONDIFUL ity o f [facility] 2020-03-03 2020-03-03 Outpatient R EMMANUEL [facility] [id number] Univers 10:45:00 10:45:00 WONDIFUL ity o [facility] 2020-01-25 2020-01-25 Refill [facility] 1.2.840.114 [id number] Univers 00:00:00 00:00:00 Wondiful A Health 350.1.13.10 ity of [place] 4.2.7.2.686 [place] Professio [phone] [address] 2020-01-21 2020-01-21 Outpatient R EMMANUEL [facility] [id number] N-20 Univers 11:00:00 11:00:00 WONDIFUL [id number] ity o f [facility] 2020-01-21 2020-01-21 Outpatient R EMMANUEL [facility] [id number] Univers 11:00:00 11:00:00 WONDIFUL ity o f [facility] 2020-01-04 2020-01-04 Outpatient R EMMANUEL [facility] [id number] N-20 Univers 15:45:00 15:45:00 WONDIFUL ity o f [facility] 2020-01-04 2020-01-04 Outpatient R EMMANUEL [facility] [id number] Univers 15:45:00 15:45:00 WONDIFUL ity o [facility] 2020-01-04 2020-01-04 Telemedici [facility] 1.2.840.114 [id number] Univers 07:35:15 07:50:15 ne Visit W[facility]iful [facility] 350.1.13.10 ity of [place] 4.2.7.2.686 Zak as Professio [phone] [address] 2019-12-27 2019-12-27 Orders Doctor NAVEEN 1.2.840.114 [id number] Univers 00:00:00 00:00:00 Only Unassigned, ALETHEA 350.1.13.10 ity of [facility] 4.2.7.2.686 Zak as [phone] [address] 2019-12-25 2019-12-25 [facility]ill [facility] 1.2.840.114 [id number] Univers 00:00:00 00:00:00 Wondiful A [place] 350.1.13.10 ity of [place].2.[place] Profess[place] [phone] [address] 2019-12-03 2019-12-03 [facility] 1.2.840.114 [id number] Univers 00:00:00 00:00:00 Wondiful A Health 350.1.13.10 ity of [place] 4.2.7.2.686 [place] Professio [phone] [address] 2019-09-18 2019-09-18 Pre Visit Emmanuel [facility] 1.2.840.114 [id number] Univers 00:00:00 00:00:00 Outreach Wondiful A [place] 350.1.13.10 ity of [place] [phone] [address] 2019-08-24 2019-08-24 Telemedici Elma Austin [facility] 1.2.840.114 [id number] Univers 07:46:39 11:08:44 ne Visit Health 350.1.13.10 [place] [phone] [address] 2019-08-24 2019-08-24 Outpatient ELMA HUNTER [facility] [id number] Univers 09:30:00 09:30:00 ity of [facility] 2019-08-09 2019-08-09 Outpatient ELMA HUNTER [facility] [id number] [id number]-20 Univers 11:30:00 11:30:00 [id number] ity of [facility] 2019-07-10 2019-07-10 Telemedici [facility] 1.2.840.114 [id number] Univers 14:00:09 15:15:53 ne Visit Wondiful A [place] 350.1.13.10 ity of [place]2.[place] Profess[place] [phone] [address] Building 2019-07-10 2019-07-10 Outpatient R EMMANUEL [facility] [id number] N-20 Univers 14:35:00 14:35:00 WONDIFUL ity o f [facility] 2019-07-10 2019-07-10 Outpatient R [facility]UEL [facility] [id number] Univers 14:35:00 14:35:00 WONDIFUL ity o f [facility] 2019-07-05 2019-07-05 Outpatient R EMMANUEL [facility] [id number] N-20 Univers 09:45:00 09:45:00 WONDIFUL [id number] ity o f [facility] 2019-07-05 2019-07-05 Outpatient R [facility] [id number] Univers 09:45:00 09:45:00 WONDIFUL ity o f [facility] 2019-07-03 2019-07-03 Refill Emmanuel [facility] 1.2.840.114 [id number] Univers 00:00:00 00:00:00 Wondiful A [facility] 350.1.13.10 ity of [place] 4.2.7.2.686 Zak as essio [phone] [address] Office Building One 2019-01-26 2019-01-26 Outpatient R NORMANELMA [facility] [id number] Univers 09:30:00 10:31:17 ity of [facility] 2018-12-06 2018-12-06 Orders Doctor HODGE 1.2.840.114 [id number] Univers 00:00:00 00:00:00 Only Unassigned, ALETHEA 350.1.13.10 ity of [place] [facility] 4.2.7.2.686 Zak as [phone] [address] 2018-10-30 2018-10-30 Office WILL Roque 1.2.840.114 [id number] Univers 08:42:33 09:46:36 Visit Malissa Kellogg 350.1.13.10 it y of [place] 4.2.7.2.686 Zak as Professio [phone] [facility] [facility] [address] [place] Office Building One 2018-09-29 2018-09-29 Orders Doctor NAVEEN 1.2.840.114 [id number] Univers 00:00:00 00:00:00 Only Unassigned, ALETHEA 350.1.13.10 ity of [facility] 4.2.7.2.686 Zak as [phone] [address] 2015-07-10 2015-07-10 Orders Doctor NAVEEN 1.2.840.114 [id number] Univers 00:00:00 00:00:00 Only Unassigned, ALETHEA 350.1.13.10 ity of [facility] 4.2.7.2.686 Zak as [phone] [address] 2015-06-19 2015-06-19 Orders Doctor NAVEEN 1.2.840.114 [id number] Univers 00:00:00 00:00:00 Only Unassigned, ALETHEA 350.1.13.10 ity of [facility] 4.2.7.2.686 Zak as [phone] [address] Results Test Description Test Time Test Comments Results Result Comments Source R 2020-11-05 13:14:00 Test Item Value Reference Range Interpretation Comme nts R SCREEN (CORINAAKER) (test code = 420) Nonreactive Nonreactive CT, CTANGIO [id number] 09:00:00Unlisted Reason for Exam - Click Yes and Enter Reason Below->No [facility]: NAVEEN MOLINA : 1955 Sex: MFINAL REPORT CT, CTANGIO BRAIN, CT, CAROTID, ANGIOBRAIN CT WITHOUT CONTRAST INDICATION: Stroke, follow up COMPARISON: None TECHNIQUE:Rapid acquisition spiral imageswere obtained between the aortic arch and the cranial vertex during intravenous contrast infusion toreconstruct axial images and angiographic 3D maximum intensity projections (MIP). 3-D volumetric reformatted images were created at a dedicated workstation. Precontrast images of the brain were also obtained. Stenosis evaluation reported in compliance with NASCET criteria. DOSE REDUCTION: Dose modulation, iterative reconstruction, and/or weight-based adjustment of the mA/kV was utilized to reduce the radiation dose to as low as reasonably achievable. FINDINGS:CT BRAIN:Cerebral parenchyma: Moderate global cerebral atrophy. Advanced white matter changes without acute mahmood-white disruption. No hemorrhage in the parenchyma.Midline structures: Normally positioned.Cerebellum and brainstem: Mild volume loss.Ventricles: Ex vacuo dilation.Extra-axial spaces: Unremarkable.Calvarium and skull base: Intact.Paranasal sinuses and mastoid air cells: Visible chambers are clear.Orbital contents: Included portions unremarkable. CTA BRAIN:Internal carotid arteries: Circumferential calcifications at the carotid siphons without flow limitation.Middle cerebral arteries: Patent to distal branches.Anterior cerebral arteries: Patent. Intact A-comm.Basilar system: Circumferential calcifications at the dural breeches affecting both vertebral arteries. Approximately 50% narrowing on the right compared to distal intracranial portions of the same vessel. Focal narrowing of the basilar artery at its origin without distal compromise.Posterior cerebral arteries:Patent beyond the quadrigeminal segments.Venous opacification: Major dural sinuses unremarkable for bolus timing.Additional findings: None. CTA NECK:Common carotid arteries: The common carotid arteries are normal in size. Bifurcations: Calcific atherosclerosis without flow limitation. Cervical internal carotid arteries: No flow limiting stenosis.Vertebral arteries: Codominant. No origin stenosis.Arch anatomy: Conventional. Nonvascular findings:No acute findings within arterial phase imaging. IMPRESSION: Involutional changes without recent infarct or hemorrhage. Scattered atherosclerotic disease without high-grade narrowing or distal flow compromise in the cervical or intracranial circulations. Signed: JR Brandon, Netta FOWLEReport Verified Date/Time:11/05/2020 09:00:13 Reading Location: [facility] Radiology Reading Room CT, CAROTID, [id number] 09:00:00Unlisted Reason for Exam - Click Yes and Enter Reason Below->No [facility] : 1955 Sex: MFINAL REPORT CT, CTANGIO BRAIN, CT, CAROTID, ANGIOBRAIN CT WITHOUT CONTRAST INDICATION: Stroke, follow up COMPARISON: None TECHNIQUE:Rapid acquisition spiral imageswere obtained between the aortic arch and the cranial vertex during intravenous contrast infusion toreconstruct axial images and angiographic 3D maximum intensity projections (MIP). 3-D volumetric reformatted images were created at a dedicated workstation. Precontrast images of the brain were also obtained. Stenosis evaluation reported in compliance with NASCET criteria. DOSE REDUCTION: Dose modulation, iterative reconstruction, and/or weight-based adjustment of the mA/kV was utilized to reduce the radiation dose to as low as reasonably achievable. FINDINGS:CT BRAIN:Cerebral parenchyma: Moderate global cerebral atrophy. Advanced white matter changes without acute mahmood-white disruption. No hemorrhage in the parenchyma.Midline structures: Normally positioned.Cerebellum and brainstem: Mild volume loss.Ventricles: Ex vacuo dilation.Extra-axial spaces: Unremarkable.Calvarium and skull base: Intact.Paranasal sinuses and mastoid air cells: Visible chambers are clear.Orbital contents: Included portions unremarkable. CTA BRAIN:Internal carotid arteries: Circumferential calcifications at the carotid siphons without flow limitation.Middle cerebral arteries: Patent to distal branches.Anterior cerebral arteries: Patent. Intact A-comm.Basilar system: Circumferential calcifications at the dural breeches affecting both vertebral arteries. Approximately 50% narrowing on the right compared to distal intracranial portions of the same vessel. Focal narrowing of the basilar artery at its origin without distal compromise.Posterior cerebral arteries:Patent beyond the quadrigeminal segments.Venous opacification: Major dural sinuses unremarkable for bolus timing.Additional findings: None. CTA NECK:Common carotid arteries: The common carotid arteries are normal in size. Bifurcations: Calcific atherosclerosis without flow limitation. Cervical internal carotid arteries: No flow limiting stenosis.Vertebral arteries: Codominant. No origin stenosis.Arch anatomy: Conventional. Nonvascular findings:No acute findings within arterial phase imaging. IMPRESSION: Involutional changes without recent infarct or hemorrhage. Scattered atherosclerotic disease without high-grade narrowing or distal flow compromise in the cervical or intracranial circulations. Signed: JR Taylor Robert MDReport Verified Date/Time:11/05/2020 09:00:13 Reading Location: [facility] Radiology Reading Room HEMOGLOBIN [id number] 08:45:00 Test Item Value Reference Range Interpretation Comments HEMOGLOBIN A1C (BEAKER) (test code = 4.8 % 4.3-6.1 368) HEPATIC FUNCTION [id number] 06:56:00 Test Item Value Reference Range Interpretation Comments TOTAL PROTEIN (BEAKER) (test code = 6.5 gm/dL 6.0-8.3 770) ALBUMIN (BEAKER) (test code = 1145) 3.6 g/dL 3.5-5.0 BILIRUBIN TOTAL (BEAKER) (test code 0.3 mg/dL 0.2-1.2 = 377) BILIRUBIN DIRECT (BEAKER) (test 0.2 mg/dL 0.1-0.5 code = 706) ALKALINE PHOSPHATASE (BEAKER) (test 71 U/L 40-150 code = 346) AST (SGOT) (BEAKER) (test code = 21 U/L 5-34 353) ALT (SGPT) (BEAKER) (test code = 21 U/L 6-55 347) Warehouse [employer] Supervisor ID - PIAYA LBASIC METABOLIC [id number] 06:56:00 Test Item Value Reference Range Interpretation Comments SODIUM (BEAKER) 142 meq/L 136-145 (test code = 381) POTASSIUM (BEAKER) 3.9 meq/L 3.5-5.1 (test code = 379) CHLORIDE (BEAKER) 109 meq/L 98-107 H (test code = 382) CO2 (BEAKER) (test 25 meq/L 22-29 code = 355) BLOOD UREA NITROGEN 11 mg/dL 7-21 (BEAKER) (test code = 354) CREATININE (BEAKER) 0.93 mg/dL 0.57-1.25 (test code = 358) GLUCOSE RANDOM 90 mg/dL 70-105 (BEAKER) (test code = 652) CALCIUM (BEAKER) 8.4 mg/dL 8.4-10.2 (test code = 697) EGFR (BEAKER) (test 81 mL/min/1.73 ESTIMA JEANNIE GFR IS code = 1092) sq m NOT ACCURATE CREATININE CLEARANCE IN PREDICTING GLOMERULAR FILTRATION RATE . ESTIMATED GFR I S NOT APPLICABLE FOR DIALYSIS PATIEN TS. Warehouse Traffic Supervisor ID - SHADINILDA [id number] 06:56:00 Test Item Value Reference Range Interpretation Comments MAGNESIUM (BEAKER) (test code = 2.2 mg/dL 1.6-2.6 627) Warehouse Traffic Supervisor ID - SHADINILDA [id number] 06:56:00 Test Item Value Reference Range Interpretation Comments PHOSPHORUS (BEAKER) (test code = 3.0 mg/dL 2.3-4.7 604) Warehouse [employer] Supervisor ID - SHADINILDA LLIPID [id number] 06:56:00 Test Item Value Reference Range Interpretation Comments TRIGLYCERIDES (BEAKER) (test code = 111 mg/dL 540) CHOLESTEROL (BEAKER) (test code = 142 mg/dL 631) HDL CHOLESTEROL (BEAKER) (test code 27 mg/dL = 976) LDL CHOLESTEROL CALCULATED (BEAKER) 93 mg/dL (test code = 633) Triglyceride Reference Range: Low Risk <150 Borderline 150-199 High Risk 200-499 Very High Risk >=500Cholesterol Reference Range: Low Risk <200 Borderline 200-239 High Risk >240HDL Cholesterol Reference Range: Low Risk >=60 High Risk <40LDL Cholesterol Reference Range: Optimal <100 Near Optimal 100-129 Borderline 130-159 High 160-189 Very High >=190 Warehouse Traffic Supervisor ID - CELENALTSH/FREE T4 IF [id number] 06:45:00 Test Item Value Reference Range Interpretation Comments THYROID STIMULATING HORMONE 1.888 uIU/mL 0.350-4.940 (BEAKER) (test code = 772) Warehouse [employer] Supervisor ID - CELENA LVITAMIN B12 AND [id number] 06:45:00 Test Item Value Reference Range Interpretation Comments VITAMIN B12 220 pg/mL 213-816 (BEAKER) (test code = 774) FOLATE (BEAKER) 10.10 ng/mL See_Comment [Automated message] (test code = 362) The system which generated this result transmitted ref erence range: >=7.00. The reference range was not used to interpr et this result as normal/abnormal . Warehouse Traffic Supervisor ID - CELENA LCBC W/PLT COUNT & AUTO [id number] 06:03:00 Test Item Value Reference Range Interpretation Comments WHITE BLOOD CELL COUNT (BEAKER) 8.6 K/ L 3.5-10.5 (test code = 775) RED BLOOD CELL COUNT (BEAKER) 4.42 M/ L 4.63-6.08 L (test code = 761) HEMOGLOBIN (BEAKER) (test code = 9.9 GM/DL 13.7-17.5 L 410) HEMATOCRIT (BEAKER) (test code = 32.5 % 40.1-51.0 L 411) MEAN CORPUSCULAR VOLUME (BEAKER) 73.5 fL 79.0-92.2 L (test code = 753) MEAN CORPUSCULAR HEMOGLOBIN 22.4 pg 25.7-32.2 L (BEAKER) (test code = 751) MEAN CORPUSCULAR HEMOGLOBIN CONC 30.5 GM/DL 32.3-36.5 L (BEAKER) (test code = 752) RED CELL DISTRIBUTION WIDTH 15.4 % 11.6-14.4 H (BEAKER) (test code = 412) PLATELET COUNT (BEAKER) (test 495 K/CU MM 150-450 H code = 756) MEAN PLATELET VOLUME (BEAKER) 10.3 fL 9.4-12.4 (test code = 754) NUCLEATED RED BLOOD CELLS 0 /100 WBC 0-0 (BEAKER) (test code = 413) NEUTROPHILS RELATIVE PERCENT 57 % (BEAKER) (test code = 429) LYMPHOCYTES RELATIVE PERCENT 30 % (BEAKER) (test code = 430) MONOCYTES RELATIVE PERCENT 9 % (BEAKER) (test code = 431) EOSINOPHILS RELATIVE PERCENT 3 % (BEAKER) (test code = 432) BASOPHILS RELATIVE PERCENT 1 % (BEAKER) (test code = 437) NEUTROPHILS ABSOLUTE COUNT 4.85 K/ L 1.78-5.38 (BEAKER) (test code = 670) LYMPHOCYTES ABSOLUTE COUNT 2.53 K/ L 1.32-3.57 (BEAKER) (test code = 414) MONOCYTES ABSOLUTE COUNT (BEAKER) 0.80 K/ L 0.30-0.82 (test code = 415) EOSINOPHILS ABSOLUTE COUNT 0.28 K/ L 0.04-0.54 (BEAKER) (test code = 416) BASOPHILS ABSOLUTE COUNT (BEAKER) 0.07 K/ L 0.01-0.08 (test code = 417) IMMATURE GRANULOCYTES-RELATIVE 0 % 0-1 PERCENT (BEAKER) (test code = 2801) VITAMIN D, [id number] 20:58:00 Test Item Value Reference Range Interpretation Comments VIT D 25OH (test code = 29 ng/mL 25-80 08649-7) DAYRON (test code = DAYRON) Deficiency: <20 ng/mLInsufficiency : 20-24 ng/mLOptimal: 25-80 ng/mL Lab Interpretation (test Normal code = 91990-7) [facility]2020-03-03 20:37:00 Test Item Value Reference Range Interpretation Comments HGB A1C (test code = 5.3 % 4-6 4548-4) DAYRON (test code = DAYRON) %A1C (NGSP) Interpretation (ADA)4.8-5.6 ? ? Normal or (Non-Diabetic Range)5.7-6.4 ? ? Increased Risk (Pre-Diabetic)>6.5 ?Diabetes Indicated Lab Interpretation Normal (test code = 55108-5) [facility] [id number] 19:10:00 Test Item Value Reference Range Interpretation Comments TSH (test code = See_Comment [Automated message] [id number]) The system [employer] generated this result transmitted ref erence range: 0.45 - 4 .70 mIU/L. The refe rence range was not u sed to interpret this result as normal/abnor mal. Lab Interpretation (test Normal code = 38543-3) [facility] [id number] 19:09:00 Test Item Value Reference Range Interpretation Comments PSA (test code = 1.36 ng/mL See_Comment [Automated [id number]) message] The system which generated this result transmitted reference range : <=4.00. The reference range was not used to interpret this result as normal/abnormal . DAYRON (test code = DAYRON) Biotin has been reported to cause a negative bias, interpret results relative to patient's use of biotin. Lab Interpretation Normal (test code = 10670-8) [facility] (75578)2020-03-03 19:09:00 Test Item Value Reference Range Interpretation Comments NA (test code = 140 mmol/L 135-145 6074574887) K (test code = 4.5 mmol/L 3.5-5 4616014652) CL (test code = 98 mmol/L 98-108 0316321667) CO2 TOTAL (test code = 31 mmol/L 23-31 1450275173) AGAP (test code = 2-16 6244353420) BUN (test code = 12 mg/dL 7-23 7261581510) GLUCOSE (test code = 91 mg/dL 70-110 7841305474) CREATININE (test code = 1.16 mg/dL 0.6-1.25 3669356326) TOTAL BILI (test code = 1.0 mg/dL 0.1-1.1 7613447617) CALCIUM (test code = 10.5 mg/dL 8.6-10.6 1017627006) T PROTEIN (test code = 8.3 g/dL 6.3-8.2 H 8810827626) ALBUMIN (test code = 4.9 g/dL 3.5-5 3111568775) ALK PHOS (test code = 77 U/L 34-122 3512211530) ALTv (test code = 68 U/L 5-50 H 1742-6) AST(SGOT) (test code = 65 U/L 13-40 H 4211880052) eGFR Calculation mL/min/1.73m2 (Non-) (test code = 8901972526) eGFR Calculation mL/min/1.73m2 () (test code = 7972249071) DAYRON (test code = DAYRON) Association of Glomerular Filtration Rate (GFR) and Staging of Kidney Disease* + --+ --+ ------+| GFR (mL/min/1.73 m2) ?| With Kidney Damage ?| ?Without Kidney Damage+ --------+ --------+ +| ?>90 ?| ?Stage one ?| ? Normal ?+ ---+ ---+ -------+| ?60-89 ?| ?Stage two ?| ? Decreased GFR ? + --+ --+ ------+| ?30-59 ?| ?Stage three ?| ? Stage three ? + --+ --+ ------+| ?15-29 ?| ?Stage four ? | ? Stage four ?+ ---+ ---+ -------+| ?<15 (or dialysis) ? ?| ?Stage five ? | ? Stage five ?+ ---+ ---+ -------+ *Each stage assumes the associated GFR level has been in effect for at least three months. ?Stages 1 to 5, with or without kidney disease, indicate chronic kidney disease. Notes: Determination of stages one and two (with eGFR >59mL/min/1.73 m2) requires estimation of kidney damage for at least three months as defined by structural or functional abnormalities of the kidney, manifested by either:Pathological abnormalities or Markers of kidney damage (including abnormalities in the composition of the blood or urine or abnormalities in imaging tests). Lab Interpretation Abnormal (test code = 89524-2) [facility] [id number] 18:49:00 Test Item Value Reference Range Interpretation Comments APPEARANCE (test code = Clear Clear 5526202849) COLOR (test code = Yellow Yellow 0390953462) PH (test code = 4.8-8.0 0156973838) SP GRAVITY (test code = 1.003-1.030 6577592577) GLU U QUAL (test code = Normal Normal 6312655977) BLOOD (test code = Negative Negative 0167206498) KETONES (test code = Negative Negative 6316623264) PROTEIN (test code = 30 mg/dL Negative A 8617-8) UROBILIN (test code = Normal Normal 8316353336) BILIRUBIN (test code = Negative Negative 3902596997) NITRITE (test code = Negative Negative 7122771594) LEUK JAYDEN (test code = Negative Negative 7516561866) RBC/HPF (test code = See_Comment [Autom ated message] 0141264048) The system [employer] generated this result transmitted ref erence range: 0 - 3 HP F. The reference range was not used to int erpret this result as normal/abnormal . WBC/HPF (test code = See_Comment [Autom ated message] 8502056674) The system [employer] generated this result transmitted ref erence range: 0 - 5 HP F. The reference range was not used to int erpret this result as normal/abnormal . BACTERIA (test code = Negative Negative 4621616159) MUCOUS (test code = Marked Negative LPF A 0139995502) AMORPHOUS (test code = Rare Rare HPF 1968254851) HYAL CAST (test code = See_Comment H [Aut omated message] 4528295200) The system [employer] generated this result transmitted ref erence range: <=2 LPF. The reference range was not used to int erpret this result as normal/abnormal . Lab Interpretation (test Abnormal code = 60489-3) [facility] Center[facility] (31018)(TOTAL CHOLESTEROL, TRIGLYCERIDES, HDL)2020-03-03 18:38:00 Test Item Value Reference Range Interpretation Comments CHOL (test code = 141 mg/dL 120-200 3106298052) HDL (test code = 35 mg/dL >40 L 6567076621) HDLC RATIO (test code = See_Comment [Au tomated message] 7682483573) The system [employer] generated this result transmit jeannie reference range : <=5.0. The refe rence range was not u sed to interpret th is result as normal/abnormal . TRIG (test code = 163 mg/dL 30-170 5567102086) LDL CHOL (test code = 73 mg/dL See_Comment [Auto mated message] 77768-5) The system [employer] generated this result transmit jeannie reference range : <=160. The refe rence range was not u sed to interpret th is result as normal/abnormal . VLDL (test code = 33 mg/dL 5-60 3402115048) Lab Interpretation (test Abnormal code = 30799-4) [facility] WITHOUT [id number] 18:28:00 Test Item Value Reference Range Interpretation Comments WBC (test code = 6690-2) See_Comment [A utomated message] The system [employer] generated this result transmit jeannie reference range : 4.20 - 10.70 10*3/?L. The reference range was not used to interpret this result as normal/abnormal . RBC (test code = 789-8) See_Comment H [Au tomated message] The system [employer] generated this result transmit jeannie reference range : 4.26 - 5.52 10* 6/?L. The reference r pravin was not used to interpret this result as normal/abnormal . HGB (test code = 718-7) 15.5 g/dL 12.2-16.4 HCT (test code = 4544-3) 49.3 % 38.4-49.3 MCH (test code = 785-6) 22.7 pg 26.1-32.7 L MCV (test code = 787-2) 72.3 fL 81.7-95.6 L MCHC (test code = 786-4) 31.4 g/dL 31.2-35 PLT (test code = 777-3) See_Comment H [Au tomated message] The system [employer] generated this result transmit jeannie reference range : 150 - 328 10*3/?L. The reference range was not used to interpret this result as normal/abnormal . MPV (test code = 10.8 fL 9.8-13 49125-1) RDW-CV (test code = 16.9 % 12.1-15.4 H 788-0) RDW-SD (test code = 37.4 fL 38.5-51.6 L 67420-1) NRBC x10^3 (test code = <0.01 See_Comment [Au tomated message] 4967185869) The system [employer] generated this result transmit jeannie reference range : 10*3/?L. The reference range was not used to interpret this result as normal/abnormal . NRBC/100 WBC (test code See_Comment [Au tomated message] = 1684187748) The system [facility] generated this result transmit jeannie reference range : 0.0 - 10.0 /100 WBC s. The reference r pravin was not used to interpret this result as normal/abnormal . IPF % (test code = 7690908229) Lab Interpretation (test Abnormal code = 51069-3) [facility]"
== END 2021-02-03 12:00 | disposition home or self-care (01) ==
LOC: ER 12:48 → ERHOLD 17:39 → 2ND 19:27
PROVIDERS: ADMIT Hospitalist; ATTEND Internal Medicine
DX: I95.2 Hypotension due to drugs (principal); I67.81 Acute cerebrovascular insufficiency; N40.0 Benign prostatic hyperplasia without lower urinary tract symptoms; I10 Essential (primary) hypertension; E78.00 Pure hypercholesterolemia, unspecified; G51.0 Bell's palsy; Z86.73 Personal history of transient ischemic attack (TIA), and cerebral infarction without residual deficits; T46.5X5A Adverse effect of other antihypertensive drugs, initial encounter
CPT/HCPCS: 93005; 85025 ×2; 80048 ×2; 36415; 83735 ×2; 85610; 80076; 84443; 84484; 84439; 83880; 70450; 70496; 70498; 71045; 93880; 97161; 96360; 99285; U0003; Q9967; J7030; G0378 ×3

== ENCOUNTER 2022-12-03 12:02 | Emergency (ER) | payer OTHER ==
--- OUTSIDE RECORDS SUMMARY | 2022-12-03 12:12 | XMS REPORT | Continuity of Care Document ---
:1955 Author Organization [facility] t Address [address] [place] [address] [place] [id number] Care Team Providers Name Role Phone DARBY NIELSEN Primary Care Physician Unavailable MICHAEL ONEAL Attending Clinician Unavailable PADMAJA CONTE Attending Clinician Unavailable DARBY NIELSEN Attending Clinician Unavailable DARBY NIELSEN Attending Clinician Unavailable Rosaura Tucker Attending Clinician Lab, Ang - Db Attending Clinician Unavailable ROSAURA CASTILLO Attending Clinician Unavailable Doctor Unassigned, [place] Attending Clinician Unavailable Taiwo Watson Attending Clinician Unavailable KATHE GHOTRA Attending Clinician Unavailable Kathe Pappas Attending Clinician Katelyn Bartlett Attending Clinician Bhakti Attending Clinician Unavailable Elier Benitez MD Attending Clinician Millie Lyle Attending Clinician Alvin Attending Clinician Unavailable BILL KHOLI Attending Clinician Unavailable Nurse, Adc Pob Immunization Attending Clinician Unavailable Bill Kohli DO Attending Clinician CHELSEA, WONDIFUL A Attending Clinician Unavailable NARCISO GARCIA Attending Clinician Unavailable Lab, Adc Fam Pob I Attending Clinician Unavailable SAGAR STEWART Attending Clinician Unavailable CHINO MUSA Attending Clinician Unavailable Provider, [facility] Attending Clinician Unavailable Viridiana Oliva Attending Clinician VIRIDIANA TYLER Attending Clinician Unavailable Abundio Uriostegui MD Attending Clinician ABUNDIO URIOSTEGUI Attending Clinician Unavailable Elma Austin MD Attending Clinician ELMA AUSTIN Attending Clinician Unavailable MICHAEL ONEAL Admitting Clinician Unavailable Adrien Leahy Admitting Clinician Unavailable Tri_Marguerite Admitting Clinician Unavailable Valdo_Mirian Admitting Clinician Unavailable NARCISO GARCIA Admitting Clinician Unavailable Payers Payer Name Policy Type Policy Number Effective Date Expiration Date S cisco [facility] MGD [id number] 2020 [facility] 00:00:00 CIGNA TRUE CHOICE [id number] 2022 MEDICARE 00:00:00 Vizolution [id number] 2020 (MEDICARE 00:00:00 REPLACEMENT HMO) Problems Condition Condition Condition Status Onset Resolution Last Treating Co mments Source Name Details Category Date Date Treatment Clinician Date Cerebellar Cerebellar Disease Recurre [facility] 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 00:00: [place] positive positive 00 Medica l Branch Thrombocyt Thrombocyt Disease Active 2019-04 U nivers osis osis 2-09 ity of 00:00: [place] 00 Medical Branch Abnormal Abnormal Disease Active 2019-04 Unive rs LFTs LFTs 2-09 ity of 00:00: 00 [facility] 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 (under 40) (under 40) 4-05 it y of 00:00: [place] 00 [facility] Erythrocyt Erythrocyt Disease Active U nivers osis osis 4-05 ity of 00:00: [place] 00 [facility] Microcytos Microcytos Disease Active U nivers is is 4-05 ity of 00:00: [place] 00 Medical Branch Screening Screening Disease Active Overview: Univers for for 04 Added ity of colorectal colorectal 00:00: automatic [place] cancer cancer 00 ally from Medical request Branch for surgery [id number] DDD DDD Disease Active Univers (degenerat (degenerat [...] Dash's Dash's Disease Active Univers palsy palsy - ity of 00:00: [place] 00 Medical Branch Hypertensi Hypertensi Disease Active U nivers on on ity of [facility] History of History of Disease Active Overview : Univers CVA CVA Formattin ity of (cerebrova (cerebrova g of this [place] scular scular note Medical accident) accident) might be Br anch different from the original. About 20 years ago (around 1999) Stroke Stroke Disease Active Univers ity of [facility] Allergies, Adverse Reactions, Alerts Allergy Allergy Status Severity Reaction(s) Onset Inactive Treating Comm ents Source Name Type Date Date Clinician No Known DA Active U [facility] Allergie 10-08 Clear s 00:00: [place] 00 [facility] NO KNOWN Allergy Active [facility] NO KNOWN Drug Active Univers ALLERGIE Class ity of S [facility] Social History Social Habit Start Date Stop Date Quantity Comments Source Gender identity Universit y of [facility] Sexual orientation Univer sity [facility] Exposure to 2022-01-22 2022-02-01 Not sure University SARS-CoV-2 (event) 00:00:00 11:13:00 [facility] History of Social 2022-02-01 2022-02-01 Univers ity of function 00:00:00 00:00:00 [facility] Tobacco use and 2022-01-22 2022-01-22 Smokeless Universit y of exposure 00:00:00 00:00:00 tobacco non-user [facility] dical Branch Alcohol intake 2020-11-04 2020-11-04 Ex-drinker PADMAJA Carter es 00:00:00 00:00:00 (finding) [facility] Sex Ass[birth year] At [birth year] PADMAJA Bennett 00:00:00 00:00:00 [facility] Smoking Status Start Date Stop Date Source Unknown if ever smoked [facility] [place] Never smoked tobacco [facility] Medications Ordered Filled Start Stop Current Ordering Indication Dosage Frequency Signature Comments Components Source Medication Medication Date Date Medication? Clinician (SIG) Name Name aspirin 81 2022-0 Yes 81mg Take 1 Unive rs mg chewable 7-26 tablet by ity of tablet 09:55: mouth in [place] [address] the Medical morning. Branch aspirin 81 2022-0 Yes 81mg Take 1 Unive rs mg chewable 7-26 tablet by ity of tablet 09:55: mouth in [place] [address] the Medical morning. Branch aspirin 81 2022-0 Yes 81mg Take 1 Unive rs mg chewable 7-26 tablet by ity of tablet 09:55: mouth in [place] [address] the Medical morning. Branch aspirin 81 2022-0 Yes 81mg Take 1 Unive rs mg chewable 7-26 tablet by ity of tablet 09:55: mouth in [place] [address] the Medical morning. Branch aspirin 81 2022-0 Yes 81mg Take 1 Unive rs mg chewable 7-14 tablet by ity of tablet 13:07: mouth in [place] [address] the Medical morning. Branch aspirin 81 3-0 Yes 81mg Take 1 Unive rs mg chewable 7-14 tablet by ity of tablet 13:07: mouth in [place] [address] the Medical morning. Branch aspirin 81 2022-0 Yes 81mg Take 1 Unive rs mg chewable 7-14 tablet by ity of tablet 13:07: mouth in [place] [address] the Medical morning. Branch aspirin 81 3-0 Yes 81mg Take 1 Unive rs mg chewable 7-14 tablet by ity of tablet 13:07: mouth in [place] [address] the Medical morning. Branch aspirin 81 3-0 Yes 81mg Take 1 Unive rs mg chewable 7-14 tablet by ity of tablet 13:07: mouth in [place] [address] the Medical morning. Branch aspirin 81 2022-0 Yes 81mg Take 1 Unive rs mg chewable 7-14 tablet by ity of tablet 13:07: mouth in [place] 51 the Medical morning. Branch tamsulosin 2022-0 Yes [id number] .4mg Take 1 Univers 0.4 mg 24 7-14 01 capsule by ity of hr capsule 00:00: mouth at [place] 00 bedtime. Medical Branch lisinopriL 2022-0 Yes [id number] 20mg Take 1 U nivers 20 mg 7-14 tablet by ity of tablet 00:00: mouth in [place] 00 the Medical morning. Branch amLODIPine 2022-0 Yes [id number] 7.5mg Take 1.5 Univers 5 mg tablet 7-14 tablets by it y of 00:00: mouth in [place] 00 the Medical morning. Branch atorvastati 2022-0 Yes [id number] 40mg Take 1 Univers n (LIPITOR) 7-14 tablet by ity of 40 mg 00:00: mouth at [place] tablet 00 bedtime. Medical Branch carvediloL 2022-0 Yes [id number] 6.25mg Take 1 Univers 6.25 mg 7-14 tablet by ity of tablet 00:00: mouth in [place] 00 the Medical morning Branch and 1 tablet in the evening. Take with meals. tamsulosin 2022-0 Yes [id number] .4mg Take 1 Univers 0.4 mg 24 7-14 01 capsule by ity of hr capsule 00:00: mouth at [place] 00 bedtime. Medical Branch lisinopriL 2022-0 Yes [id number] 20mg Take 1 U nivers 20 mg 7-14 tablet by ity of tablet 00:00: mouth in [place] 00 the Medical morning. Branch amLODIPine 2022-0 Yes [id number] 7.5mg Take 1.5 Univers 5 mg tablet 7-14 tablets by it y of 00:00: mouth in [place] 00 the Medical morning. Branch atorvastati 2022-0 Yes [id number] 40mg Take 1 Univers n (LIPITOR) 7-14 tablet by ity of 40 mg 00:00: mouth at [place] tablet 00 bedtime. Medical Branch carvediloL 2022-0 Yes [id number] 6.25mg Take 1 Univers 6.25 mg 7-14 tablet by ity of tablet 00:00: mouth in [place] 00 the Medical morning Branch and 1 tablet in the evening. Take with meals. tamsulosin 2022-0 Yes [id number] .4mg Take 1 Univers 0.4 mg 24 7-14 01 capsule by ity of hr capsule 00:00: mouth at [place] 00 bedtime. Medical Branch lisinopriL 2022-0 Yes [id number] 20mg Take 1 U nivers 20 mg 7-14 tablet by ity of tablet 00:00: mouth in [place] 00 the Medical morning. Branch amLODIPine 2022-0 Yes [id number] 7.5mg Take 1.5 Univers 5 mg tablet 7-14 tablets by it y of 00:00: mouth in [place] 00 the Medical morning. Branch atorvastati 2022-0 Yes [id number] 40mg Take 1 Univers n (LIPITOR) 7-14 tablet by ity of 40 mg 00:00: mouth at [place] tablet 00 bedtime. Medical Branch carvediloL 2022-0 Yes [id number] 6.25mg Take 1 Univers 6.25 mg 7-14 tablet by ity of tablet 00:00: mouth in [place] 00 the Medical morning Branch and 1 tablet in the evening. Take with meals. tamsulosin 2022-0 Yes [id number] .4mg Take 1 Univers 0.4 mg 24 7-14 01 capsule by ity of hr capsule 00:00: mouth at [place] 00 bedtime. Medical Branch lisinopriL 2022-0 Yes [id number] 20mg Take 1 U nivers 20 mg 7-14 tablet by ity of tablet 00:00: mouth in [place] the Medical morning. Branch amLODIPine 2022-0 Yes [id number] 7.5mg Take 1.5 Univers 5 mg tablet 7-14 tablets by it y of 00:00: mouth in [place] the Medical morning. Branch atorvastati 2022-0 Yes [id number] 40mg Take 1 Univers n (LIPITOR) 7-14 tablet by ity of 40 mg 00:00: mouth at [place] tablet 00 bedtime. Medical Branch carvediloL 2022-0 Yes [id number] 6.25mg Take 1 Univers 6.25 mg 7-14 tablet by ity of tablet 00:00: mouth in [place] 00 the Medical morning Branch and 1 tablet in the evening. Take with meals. tamsulosin 3-0 Yes [id number] .4mg Take 1 Univers 0.4 mg 24 7-14 01 capsule by ity of hr capsule 00:00: mouth at [place] 00 bedtime. Medical Branch lisinopriL 3-0 Yes [id number] 20mg Take 1 U nivers 20 mg 7-14 tablet by ity of tablet 00:00: mouth in [place] 00 the Medical morning. Branch amLODIPine 2022-0 Yes [id number] 7.5mg Take 1.5 Univers 5 mg tablet 7-14 tablets by it y of 00:00: mouth in [place] 00 the Medical morning. Branch atorvastati 2022-0 Yes [id number] 40mg Take 1 Univers n (LIPITOR) 7-14 tablet by ity of 40 mg 00:00: mouth at [place] tablet 00 bedtime. Medical Branch carvediloL 2022-0 Yes [id number] 6.25mg Take 1 Univers 6.25 mg 7-14 tablet by ity of tablet 00:00: mouth in [place] 00 the Medical morning Branch and 1 tablet in the evening. Take with meals. tamsulosin 3-0 Yes [id number] .4mg Take 1 Univers 0.4 mg 24 7-14 01 capsule by ity of hr capsule 00:00: mouth at [place] 00 bedtime. Medical Branch lisinopriL 2022-0 Yes [id number] 20mg Take 1 U nivers 20 mg 7-14 tablet by ity of tablet 00:00: mouth in [place] 00 the Medical morning. Branch amLODIPine 2022-0 Yes [id number] 7.5mg Take 1.5 Univers 5 mg tablet 7-14 tablets by it y of 00:00: mouth in [place] 00 the Medical morning. Branch atorvastati 2022-0 Yes [id number] 40mg Take 1 Univers n (LIPITOR) 7-14 tablet by ity of 40 mg 00:00: mouth at [place] tablet 00 bedtime. Medical Branch carvediloL 2022-0 Yes [id number] 6.25mg Take 1 Univers 6.25 mg 7-14 tablet by ity of tablet 00:00: mouth in [place] 00 the Medical morning Branch and 1 tablet in the evening. Take with meals. tamsulosin 3-0 Yes [id number] .4mg Take 1 Univers 0.4 mg 24 7-14 01 capsule by ity of hr capsule 00:00: mouth at [place] 00 bedtime. Medical Branch lisinopriL 2022-0 Yes [id number] 20mg Take 1 U nivers 20 mg 7-14 tablet by ity of tablet 00:00: mouth in [place] 00 the Medical morning. Branch amLODIPine 2022-0 Yes [id number] 7.5mg Take 1.5 Univers 5 mg tablet 7-14 tablets by it y of 00:00: mouth in [place] 00 the Medical morning. Branch atorvastati 2022-0 Yes [id number] 40mg Take 1 Univers n (LIPITOR) 7-14 tablet by ity of 40 mg 00:00: mouth at [place] tablet 00 bedtime. Medical Branch carvediloL 2022-0 Yes [id number] 6.25mg Take 1 Univers 6.25 mg 7-14 tablet by ity of tablet 00:00: mouth in [place] 00 the Medical morning Branch and 1 tablet in the evening. Take with meals. tamsulosin 3-0 Yes [id number] .4mg Take 1 Univers 0.4 mg 24 7-14 01 capsule by ity of hr capsule 00:00: mouth at [place] 00 bedtime. Medical Branch lisinopriL 2022-0 Yes [id number] 20mg Take 1 U nivers 20 mg 7-14 tablet by ity of tablet 00:00: mouth in [place] the Medical morning. Branch amLODIPine 2022-0 Yes [id number] 7.5mg Take 1.5 Univers 5 mg tablet 7-14 tablets by it y of 00:00: mouth in [place] the Medical morning. Branch atorvastati 2022-0 Yes [id number] 40mg Take 1 Univers n (LIPITOR) 7-14 tablet by ity of 40 mg 00:00: mouth at [place] tablet 00 bedtime. Medical Branch carvediloL 2022-0 Yes [id number] 6.25mg Take 1 Univers 6.25 mg 7-14 tablet by ity of tablet 00:00: mouth in [place] 00 the Medical morning Branch and 1 tablet in the evening. Take with meals. tamsulosin 3-0 Yes [id number] .4mg Take 1 Univers 0.4 mg 24 7-14 01 capsule by ity of hr capsule 00:00: mouth at [place] 00 bedtime. Medical Branch lisinopriL 3-0 Yes [id number] 20mg Take 1 U nivers 20 mg 7-14 tablet by ity of tablet 00:00: mouth in [place] 00 the Medical morning. Branch amLODIPine 2022-0 Yes [id number] 7.5mg Take 1.5 Univers 5 mg tablet 7-14 tablets by it y of 00:00: mouth in [place] 00 the Medical morning. Branch atorvastati 0 Yes [id number] 40mg Take 1 Univers n (LIPITOR) 7-14 tablet by ity of 40 mg 00:00: mouth at [place] tablet 00 bedtime. Medical Branch carvediloL 0 Yes [id number] 6.25mg Take 1 Univers 6.25 mg 7-14 tablet by ity of tablet 00:00: mouth in [place] 00 the Medical morning Branch and 1 tablet in the evening. Take with meals. tamsulosin 2022-0 Yes [id number] .4mg Take 1 Univers 0.4 mg 24 7-14 01 capsule by ity of hr capsule 00:00: mouth at [facility] as 00 bedtime. Medical Branch lisinopriL 2022-0 Yes [id number] 20mg Take 1 U nivers 20 mg 7-14 tablet by ity of tablet 00:00: mouth in [place] 00 the Medical morning. Branch amLODIPine 0 Yes [id number] 7.5mg Take 1.5 Univers 5 mg tablet 7-14 tablets by it y of 00:00: mouth in [place] 00 the Medical morning. Branch atorvastati Yes [id number] 40mg Take 1 Univers n (LIPITOR) 7-14 tablet by ity of 40 mg 00:00: mouth at [place] tablet 00 bedtime. Medical Branch carvediloL 0 Yes [id number] 6.25mg Take 1 Univers 6.25 mg 7-14 tablet by ity of tablet 00:00: mouth in [place] 00 the Medical morning Branch and 1 tablet in the evening. Take with meals. ferrous 2021-04 Yes [id number] 324mg Take 1 Uni vers sulfate 324 1-04 tablet by ity of mg (65 mg 00:00: mouth [place] iron) EC 00 daily with Medic al tablet breakfast. Branch ferrous 2021-04 Yes [id number] 324mg Take 1 Uni vers sulfate 324 1-04 tablet by ity of mg (65 mg 00:00: mouth [place] iron) EC 00 daily with Medic al tablet breakfast. Branch ferrous 2021-04 Yes [id number] 324mg Take 1 Uni vers sulfate 324 1-04 tablet by ity of mg (65 mg 00:00: mouth [place] iron) EC 00 daily with Medic al tablet breakfast. Branch ferrous 2021-04 Yes [id number] 324mg Take 1 Uni vers sulfate 324 1-04 tablet by ity of mg (65 mg 00:00: mouth [place] iron) EC 00 daily with Medic al tablet breakfast. Branch ferrous 2021-04 Yes [id number] 324mg Take 1 Uni vers sulfate 324 1-04 tablet by ity of mg (65 mg 00:00: mouth [place] iron) EC 00 daily with Medic al tablet breakfast. Branch ferrous 2021-04 Yes [id number] 324mg Take 1 Uni vers sulfate 324 1-04 tablet by ity of mg (65 mg 00:00: mouth [place] iron) EC 00 daily with Medic al tablet breakfast. Branch ferrous 2021-04 Yes [id number] 324mg Take 1 Uni vers sulfate 324 1-04 tablet by ity of mg (65 mg 00:00: mouth [place] iron) EC 00 daily with Medic al tablet breakfast. Branch ferrous 2021-04 Yes [id number] 324mg Take 1 Uni vers sulfate 324 1-04 tablet by ity of mg (65 mg 00:00: mouth [place] iron) EC 00 daily with Medic al tablet breakfast. Branch ferrous 2021-04 Yes [id number] 324mg Take 1 Uni vers sulfate 324 1-04 tablet by ity of mg (65 mg 00:00: mouth [place] iron) EC 00 daily with Medic al tablet breakfast. Branch ferrous 2021-04 Yes [id number] 324mg Take 1 Uni vers sulfate 324 1-04 tablet by ity of mg (65 mg 00:00: mouth [place] iron) EC 00 daily with Medic al tablet breakfast. Branch ferrous 2021-04 Yes [id number] 324mg Take 1 Uni vers sulfate 324 1-04 tablet by ity of mg (65 mg 00:00: mouth [place] iron) EC 00 daily with Medic al tablet breakfast. Branch ferrous 2021-04 Yes [id number] 324mg Take 1 Uni vers sulfate 324 1-04 tablet by ity of mg (65 mg 00:00: mouth [place] iron) EC 00 daily with Medic al tablet breakfast. Branch ferrous 2021-04 Yes [id number] 324mg Take 1 Uni vers sulfate 324 1-04 tablet by ity of mg (65 mg 00:00: mouth [place] iron) EC 00 daily with Medic al tablet breakfast. Branch tamsulosin 2021-04 Yes [id number] .4mg Take 1 Univers 0.4 mg 24 0-31 capsule by ity of hr capsule 00:00: mouth at [place] 00 bedtime. Medical Branch tamsulosin 2021-04 Yes [id number] .4mg Take 1 Univers 0.4 mg 24 0-31 capsule by ity of hr capsule 00:00: mouth at [place] 00 bedtime. Medical Branch tamsulosin 2021-04 Yes [id number] .4mg Take 1 Univers 0.4 mg 24 0-31 capsule by ity of hr capsule 00:00: mouth at [place] 00 bedtime. Medical Branch tamsulosin 2021-04 Yes [id number] .4mg Take 1 Univers 0.4 mg 24 0-31 capsule by ity of hr capsule 00:00: mouth at [place] 00 bedtime. Medical Branch tamsulosin 2021-04 Yes [id number] .4mg Take 1 Univers 0.4 mg 24 0-31 capsule by ity of hr capsule 00:00: mouth at [place] as 00 bedtime. Medical Branch tamsulosin 2021-04 Yes [id number] .4mg Take 1 Univers 0.4 mg 24 0-31 capsule by ity of hr capsule 00:00: mouth at [place] as 00 bedtime. Medical Branch tamsulosin 2021-04 Yes [id number] .4mg Take 1 Univers 0.4 mg 24 0-31 capsule by ity of hr capsule 00:00: mouth at [place] 00 bedtime. Medical Branch tamsulosin 2021-04 Yes [id number] .4mg Take 1 Univers 0.4 mg 24 0-31 capsule by ity of hr capsule 00:00: mouth at [place] as 00 bedtime. Medical Branch tamsulosin 2021-04 Yes [id number] .4mg Take 1 Univers 0.4 mg 24 0-31 capsule by ity of hr capsule 00:00: mouth at [place] 00 bedtime. Medical Branch tamsulosin 2021-04- No [id number] .4mg Take 1 Univers 0.4 mg 24 0-31 07-14 capsule by ity of hr capsule 00:00: 00:00 mouth at [place] 00 :00 bedtime. Medical Branch tamsulosin 2021-04- No [id number] .4mg Take 1 Univers 0.4 mg 24 0-31 07-14 capsule by ity of hr capsule 00:00: 00:00 mouth at [place] 00 :00 bedtime. Medical Branch tiZANidine 2021-04 Yes [id number] 4mg Take 1 Univers 4 mg tablet 0-21 tablet by ity of 00:00: mouth [place] 00 every 8 Medical (eight) Branch hours as needed (muscle pain or spasm). tiZANidine 2021-04 Yes [id number] 4mg Take 1 Univers 4 mg tablet 0-21 tablet by ity of 00:00: mouth [place] 00 every 8 Medical (eight) Branch hours as needed (muscle pain or spasm). tiZANidine 2021-04 Yes [id number] 4mg Take 1 Univers 4 mg tablet 0-21 tablet by ity of 00:00: mouth [place] 00 every 8 Medical (eight) Branch hours as needed (muscle pain or spasm). tiZANidine 2021-04 Yes [id number] 4mg Take 1 Univers 4 mg tablet 0-21 tablet by ity of 00:00: mouth [place] 00 every 8 Medical (eight) Branch hours as needed (muscle pain or spasm). tiZANidine 2021-04 Yes [id number] 4mg Take 1 Univers 4 mg tablet 0-21 tablet by ity of 00:00: mouth [place] 00 every 8 Medical (eight) Branch hours as needed (muscle pain or spasm). tiZANidine 2021-04 Yes [id number] 4mg Take 1 Univers 4 mg tablet 0-21 tablet by ity of 00:00: mouth [place] 00 every 8 Medical (eight) Branch hours as needed (muscle pain or spasm). tiZANidine 2021-04 Yes [id number] 4mg Take 1 Univers 4 mg tablet 0-21 tablet by ity of 00:00: mouth [place] 00 every 8 Medical (eight) Branch hours as needed (muscle pain or spasm). tiZANidine 2021-04 Yes [id number] 4mg Take 1 Univers 4 mg tablet 0-21 tablet by ity of 00:00: mouth [place] 00 every 8 Medical (eight) Branch hours as needed (muscle pain or spasm). tiZANidine 2021-04 Yes [id number] 4mg Take 1 Univers 4 mg tablet 0-21 tablet by ity of 00:00: mouth [place] 00 every 8 Medical (eight) Branch hours as needed (muscle pain or spasm). tiZANidine 2021-04 Yes [id number] 4mg Take 1 Univers 4 mg tablet 0-21 tablet by ity of 00:00: mouth [place] 00 every 8 Medical (eight) Branch hours as needed (muscle pain or spasm). tiZANidine 2021-04 Yes [id number] 4mg Take 1 Univers 4 mg tablet 0-21 tablet by ity of 00:00: mouth [place] 00 every 8 Medical (eight) Branch hours as needed (muscle pain or spasm). tiZANidine 2021-04 Yes [id number] 4mg Take 1 Univers 4 mg tablet 0-21 tablet by ity of 00:00: mouth [place] 00 every 8 Medical (eight) Branch hours as needed (muscle pain or spasm). tiZANidine 2021-04 Yes [id number] 4mg Take 1 Univers 4 mg tablet 0-21 tablet by ity of 00:00: mouth [place] 00 every 8 Medical (eight) Branch hours as needed (muscle pain or spasm). tiZANidine 2021-04 Yes [id number] 4mg Take 1 Univers 4 mg tablet 0-21 tablet by ity of 00:00: mouth [place] 00 every 8 Medical (eight) Branch hours as needed (muscle pain or spasm). tiZANidine 2021-04 Yes [id number] 4mg Take 1 Univers 4 mg tablet 0-21 tablet by ity of 00:00: mouth [place] 00 every 8 Medical (eight) Branch hours as needed (muscle pain or spasm). tiZANidine 2021-04 Yes [id number] 4mg Take 1 Univers 4 mg tablet 0-21 tablet by ity of 00:00: mouth [place] 00 every 8 Medical (eight) Branch hours as needed (muscle pain or spasm). tiZANidine 2021-04 Yes [id number] 4mg Take 1 Univers 4 mg tablet 0-21 tablet by ity of 00:00: mouth [place] 00 every 8 Medical (eight) Branch hours as needed (muscle pain or spasm). tiZANidine 2021-04 Yes [id number] 4mg Take 1 Univers 4 mg tablet 0-21 tablet by ity of 00:00: mouth [place] 00 every 8 Medical (eight) Branch hours as needed (muscle pain or spasm). tiZANidine 2021-04 Yes [id number] 4mg Take 1 Univers 4 mg tablet 0-21 tablet by ity of 00:00: mouth [place] 00 every 8 Medical (eight) Branch hours as needed (muscle pain or spasm). tiZANidine 2021-04 Yes [id number] 4mg Take 1 Univers 4 mg tablet 0-21 tablet by ity of 00:00: mouth [place] 00 every 8 Medical (eight) Branch hours as needed (muscle pain or spasm). tiZANidine 2021-04 Yes [id number] 4mg Take 1 Univers 4 mg tablet 0-21 tablet by ity of 00:00: mouth [place] 00 every 8 Medical (eight) Branch hours as needed (muscle pain or spasm). LISINOPRIL 2021-0 Yes [id number] Take 1 U nivers 20 mg 2-07 tablet by ity of tablet 00:00: mouth once daily Medical Branch LISINOPRIL 2021-0 Yes [id number] Take 1 U nivers 20 mg 2-07 tablet by ity of tablet 00:00: mouth once daily Medical Branch LISINOPRIL 2021-0 Yes [id number] Take 1 U nivers 20 mg 2-07 tablet by ity of tablet 00:00: mouth once daily Medical Branch LISINOPRIL 2021-0 Yes [id number] Take 1 U nivers 20 mg 2-07 tablet by ity of tablet 00:00: mouth once daily Medical Branch LISINOPRIL 2-0 Yes [id number] Take 1 U nivers 20 mg 2-07 tablet by ity of tablet 00:00: mouth once daily Medical Branch LISINOPRIL 2-0 Yes [id number] Take 1 U nivers 20 mg 2-07 tablet by ity of tablet 00:00: mouth once daily Medical Branch LISINOPRIL 2-0 Yes [id number] Take 1 U nivers 20 mg 2-07 tablet by ity of tablet 00:00: mouth once daily Medical Branch LISINOPRIL 2-0 Yes [id number] Take 1 U nivers 20 mg 2-07 tablet by ity of tablet 00:00: mouth once daily Medical Branch LISINOPRIL 2-0 Yes [id number] Take 1 U nivers 20 mg 2-07 tablet by ity of tablet 00:00: mouth once daily Medical Branch LISINOPRIL 2-0 Yes [id number] Take 1 U nivers 20 mg 2-07 tablet by ity of tablet 00:00: mouth once [place] daily Medical Branch LISINOPRIL 2021-0 Yes [id number] Take 1 U nivers 20 mg 2-07 tablet by ity of tablet 00:00: mouth once [place] daily Medical Branch LISINOPRIL 2021-0 Yes [id number] Take 1 U nivers 20 mg 2-07 tablet by ity of tablet 00:00: mouth once [place] daily Medical Branch LISINOPRIL 2021-0 Yes [id number] Take 1 U nivers 20 mg 2-07 tablet by ity of tablet 00:00: mouth once [place] daily Medical Branch LISINOPRIL 2021-0 Yes [id number] Take 1 U nivers 20 mg 2-07 tablet by ity of tablet 00:00: mouth once [place] daily [facility] LISINOPRIL 2021-0 Yes [id number] Take 1 [facility] 20 mg 2-07 tablet by [facility] tablet 00:00: mouth once [place] daily [facility] LISINOPRIL 2021-0 3- No [id number] Take 1 [facility] 20 [facility] 2-07 -14 tablet by [facility] tablet 00:00: [place] : daily [facility] LISINOPRIL 2021-0 3- No [id number] Take 1 [facility] 20 mg 2-07 -14 tablet by [facility] tablet 00:00: [place] 00 :00 daily [facility] aspirin 81 2020-0 Yes 81mg QD Take [address] [facility] chewable 8-05 by mouth [facility] tablet 14:02: daily. [address] aspirin 81 0 Yes 81mg QD Take [address] [facility] chewable 8-05 by mouth [facility] tablet 14:02: daily. [address] amLODIPine Yes 7.5mg QD Take 7.[address] [facility] [address] [facility] (NORVASC) 5 6-01 mg by [facility] tablet 00:[facility]: mouth [facility] daily. [place] tiZANidine Yes 4mg Take [address] [facility] [address] [facility] (ZANAFLEX) 6-01 [facility] tablet 00:00: every 8 Med ical 00 (eight) Center hours as needed. amLODIPine Yes 7.5mg QD Take 7.[address] [facility] [address] [facility] (NORVASC) 5 6-01 mg by [facility] tablet 00:00: mouth Medical 00 daily. Center tiZANidine 2020-0 Yes 4mg Take [address] [facility] [address] [facility] (ZANAFLEX) 6-01 [facility] tablet 00:00: every 8 Med ical 00 (eight) Center hours as needed. amLODIPine 2020-0 Yes [id number] 7.5mg Take 1.5 [facility] 5 mg tablet 6-01 tablets by it y of 00:00: mouth [place] 00 daily. [facility] amLODIPine 2020-0 Yes [id number] 7.5mg Take 1.5 [facility] 5 mg tablet 6-01 tablets by it y of 00:00: mouth [place] 00 daily. [facility] amLODIPine 2020-0 Yes [id number] 7.5mg Take 1.5 [facility] 5 mg tablet 6-01 tablets by it y of 00:00: mouth [place] 00 daily. [facility] amLODIPine 2020-0 Yes [id number] 7.5mg Take 1.5 [facility] 5 mg tablet 6-01 tablets by it y of 00:00: mouth [place] 00 daily. [facility] amLODIPine 2020-0 Yes [id number] 7.5mg Take 1.5 [facility] 5 mg tablet 6-01 tablets by it y of 00:00: mouth [place] 00 daily. [facility] amLODIPine 2020-0 Yes [id number] 7.5mg Take 1.5 [facility] 5 mg tablet 6-01 tablets by it y of 00:00: mouth [place] 00 daily. [facility] tiZANidine 2020-0 Yes [id number] 4mg Take 1 [facility] 4 mg tablet 6-01 tablet by [facility] of 00:00: mouth [place] 00 every 8 Medical (eight) Branch hours as needed (muscle pain or spasm). amLODIPine 2020-0 Yes [id number] 7.5mg Take 1.5 [facility] 5 mg tablet 6-01 tablets by it y of 00:00: mouth [place] 00 daily. [facility] tiZANidine 2020-0 Yes [id number] 4mg Take 1 [facility] 4 mg tablet 6-01 tablet by [facility] of 00:00: mouth [place] 00 every 8 Medical (eight) Branch hours as needed (muscle pain or spasm). amLODIPine 2020-0 Yes [id number] 7.5mg Take 1.5 [facility] 5 mg tablet 6-01 tablets by it y of 00:00: mouth [place] 00 daily. [facility] tiZANidine 2020-0 Yes [id number] 4mg Take 1 [facility] 4 mg tablet 6-01 tablet by [facility] of 00:00: mouth [place] 00 every 8 Medical (eight) Branch hours as needed (muscle pain or spasm). amLODIPine 2020-0 Yes [id number] 7.5mg Take 1.5 [facility] 5 mg tablet 6-01 tablets by it y of 00:00: mouth [place] 00 daily. [facility] tiZANidine 2020-0 Yes [id number] 4mg Take 1 [facility] 4 mg tablet 6-01 tablet by [facility] of 00:00: mouth [place] 00 every 8 Medical (eight) Branch hours as needed (muscle pain or spasm). amLODIPine 2020-0 Yes [id number] 7.5mg Take 1.5 [facility] 5 mg tablet 6-01 tablets by it y of 00:00: mouth [place] 00 daily. Medical [facility] tiZANidine 2020-0 Yes [id number] 4mg Take 1 [facility] 4 mg tablet 6-01 tablet by [facility] of 00:00: mouth [place] 00 every 8 Medical (eight) Branch hours as needed (muscle pain or spasm). amLODIPine 2020-0 Yes [id number] 7.5mg Take 1.5 [facility] 5 mg tablet 6-01 tablets by it y of 00:00: mouth [place] 00 daily. [facility] tiZANidine 2020-0 Yes [id number] 4mg Take 1 [facility] 4 mg tablet 6-01 tablet by [facility] of 00:00: mouth [place] 00 every 8 Medical (eight) Branch hours as needed (muscle pain or spasm). amLODIPine 2020-0 Yes [id number] 7.5mg Take 1.5 [facility] 5 mg tablet 6-01 tablets by it y of 00:00: mouth [place] 00 daily. Medical [facility] tiZANidine 2020-0 Yes [id number] 4mg Take 1 [facility] 4 mg tablet 6-01 tablet by [facility] of 00:00: mouth [place] 00 every 8 Medical (eight) Branch hours as needed (muscle pain or spasm). amLODIPine 2020-0 Yes [id number] 7.5mg Take 1.5 [facility] 5 mg tablet 6-01 tablets by it y of 00:00: mouth [place] 00 daily. Medical [facility] tiZANidine 2020-0 Yes [id number] 4mg Take 1 [facility] 4 mg tablet 6-01 tablet by [facility] of 00:00: mouth [place] 00 every 8 Medical (eight) Branch hours as needed (muscle pain or spasm). amLODIPine 2020-0 Yes [id number] 7.5mg Take 1.5 [facility] 5 mg tablet 6-01 tablets by it y of 00:00: mouth [place] 00 daily. Medical Branch tiZANidine 2020-0 Yes [id number] 4mg Take 1 [facility] 4 mg tablet 6-01 tablet by [facility] of 00:00: mouth [place] 00 every 8 Medical (eight) Branch hours as needed (muscle pain or spasm). amLODIPine 2020-0 Yes [id number] 7.5mg Take 1.5 [facility] 5 mg tablet 6-01 tablets by it y of 00:00: mouth [place] 00 daily. Medical Branch tiZANidine 2020-0 Yes [id number] 4mg Take 1 [facility] 4 mg tablet 6-01 tablet by [facility] of 00:00: mouth [place] 00 every 8 Medical (eight) Branch hours as needed (muscle pain or spasm). amLODIPine 2020-0 Yes [id number] 7.5mg Take 1.5 [facility] 5 mg tablet 6-01 tablets by it y of 00:00: mouth [place] 00 daily. Medical Branch tiZANidine 2020-0 Yes [id number] 4mg Take 1 [facility] 4 mg tablet 6-01 tablet by [facility] of 00:00: mouth [place] 00 every 8 Medical (eight) Branch hours as needed (muscle pain or spasm). amLODIPine 2020-0 Yes [id number] 7.5mg Take 1.5 [facility] 5 mg tablet 6-01 tablets by it y of 00:00: mouth [place] 00 daily. Medical [facility] tiZANidine 2020-0 Yes [id number] 4mg Take 1 [facility] 4 mg tablet 6-01 tablet by [facility] of 00:00: mouth [place] 00 every 8 Medical (eight) Branch hours as needed (muscle pain or spasm). amLODIPine 2020-0 Yes [id number] 7.5mg Take 1.5 [facility] 5 mg tablet 6-01 tablets by it y of 00:00: mouth [place] 00 daily. Medical Branch tiZANidine 2020-0 Yes [id number] 4mg Take 1 [facility] 4 mg tablet 6-01 tablet by [facility] of 00:00: mouth [place] 00 every 8 Medical (eight) Branch hours as needed (muscle pain or spasm). amLODIPine 2020-0 Yes [id number] 7.5mg Take 1.5 [facility] 5 mg tablet 6-01 tablets by it y of 00:00: mouth [place] 00 daily. Medical Branch tiZANidine 2020-0 Yes [id number] 4mg Take 1 [facility] 4 mg tablet 6-01 tablet by [facility] of 00:00: mouth [place] 00 every 8 Medical (eight) Branch hours as needed (muscle pain or spasm). amLODIPine 2020-0 Yes [id number] 7.5mg Take 1.5 [facility] 5 mg tablet 6-01 tablets by it y of 00:00: mouth [place] 00 daily. Medical [facility] amLODIPine 0 Yes [id number] 7.5mg Take 1.5 [facility] 5 mg tablet 6-01 tablets by it y of 00:00: mouth [place] 00 daily. [facility] Branch amLODIPine 2020-0 Yes [id number] 7.5mg Take 1.5 [facility] 5 mg tablet 6-01 tablets by it y of 00:00: mouth [place] 00 daily. [facility] amLODIPine 2020-0 Yes [id number] 7.5mg Take 1.5 [facility] 5 mg tablet 6-01 tablets by it y of 00:00: mouth [place] 00 daily. [facility] amLODIPine 2020-0 Yes [id number] 7.5mg Take 1.5 [facility] 5 mg tablet 6-01 tablets by it y of 00:00: mouth [place] 00 daily. [facility] amLODIPine 0 Yes [id number] 7.5mg Take 1.5 [facility] 5 mg tablet 6-01 tablets by it y of 00:00: mouth [place] 00 daily. [facility] Branch amLODIPine 2020-0 2022- No [id number] 7.5mg Take 1.5 [facility] 5 mg tablet 6-04 10-14 tablets by i ty of 00:00: 00:00 mouth [place] 00 :00 daily. [facility] Branch amLODIPine 2020-0 3- No [id number] 7.5mg Take 1.5 [facility] 5 mg tablet 6-04 10-14 tablets by i ty of 00:00: 00:00 mouth [place] 00 :00 daily. [facility] Branch tiZANidine 2020-0 2- No [id number] 4mg Take 1 [facility] 4 mg tablet 6-04 13- tablet by it y of 00:00: 00:00 mouth [place] 00 :00 every 8 Medical (eight) Branch hours as needed (muscle pain or spasm). tiZANidine 2021- No [id number] 4mg Take 1 [facility] 4 mg tablet 09-02 tablet by it y of 00:00: 00:00 mouth [place] 00 :00 every 8 Medical (eight) Branch hours as needed (muscle pain or spasm). clindamycin 2020- No [id number] 300mg Take 1 [facility] 300 mg 05-09 capsule by [facility] of capsule 00:00: 05:59 mouth 4 [place] 00 :00 (four) Medical times Branch daily for 10 days. atorvastati 2019-04 Yes 40mg QD Take [address] [facility] (LIPITOR) 1-30 by mouth [facility] 40 MG 00:00: daily. Medical tablet 00 [place] carvediloL 2019-04 Yes 6.25mg Q.5D Take 6.[address] [facility] (COREG) 1-30 [facility] 6.25 MG 00:00: mouth 2 Medical tablet 00 (two) Center times daily. lisinopriL 2019-04 Yes 20mg QD Take [address] [facility] (PRINIVIL,Z 1-30 by mouth [facility] ESTRIL) 20 00:00: daily. Medic al MG tablet 00 [place] tamsulosin 2019-04 Yes .4mg QD Take 0.[address] [facility] (FLOMAX) 1-30 mg [facility] 0.4 mg Cap 00:00: mouth Medica l 24 hr 00 daily. [place] capsule atorvastati 2019-04 Yes 40mg QD Take [address] [facility] (LIPITOR) 1-30 by mouth [facility] 40 MG 00:00: daily. Medical tablet 00 [place] carvediloL 2019-04 Yes 6.25mg Q.5D Take 6.[address] [facility] (COREG) 1-30 mg by [facility] 6.25 MG 00:00: mouth 2 Medical tablet 00 (two) Center times daily. lisinopriL 2019-04 Yes 20mg QD Take [address] [facility] (PRINIVIL,Z 1-30 by mouth [facility] ESTRIL) 20 00:00: daily. Medic al MG tablet 00 [place] tamsulosin 2019-04 Yes .4mg QD Take 0.[address] [facility] (FLOMAX) 1-30 [facility] 0.4 mg Cap 00:00: mouth Medica l 24 hr 00 daily. Center capsule carvediloL 2019-04 Yes [id number] 6.25mg Take 1 [facility] 6.25 mg 1-30 tablet by [facility]y of tablet 00:00: mouth 2 [place] ([facility]) Medical times Branch daily with meals. atorvastati 2019-04 Yes [id number] 40mg Take 1 [facility] n (LIPITOR) 1-30 tablet by [facility]y of 40 mg 00:00: mouth at [place] tablet 00 bedtime. Medical Branch carvediloL 2019-04 Yes [id number] 6.25mg Take 1 [facility] 6.25 mg 1-30 tablet by ity of tablet 00:00: mouth 2 (two) Medical times Branch daily with meals. atorvastati 2019-04 Yes [id number] 40mg Take 1 [facility] n (LIPITOR) 1-30 tablet by [facility]y of 40 mg 00:00: mouth at [place] tablet 00 bedtime. Medical Branch carvediloL 2019-04 Yes [id number] 6.25mg Take 1 [facility] 6.25 mg 1-30 tablet by ity of tablet 00:00: mouth 2 ([facility]) Medical times Branch daily with meals. atorvastati 2019-04 Yes [id number] 40mg Take 1 [facility] n (LIPITOR) 1-30 tablet by [facility]y of 40 mg 00:00: mouth at [place] tablet 00 bedtime. Medical Branch carvediloL 2019-04 Yes [id number] 6.25mg Take 1 [facility] 6.25 mg 1-30 tablet by ity of tablet 00:00: mouth 2 [place] ([facility]) Medical times Branch daily with meals. atorvastati 2019-04 Yes [id number] 40mg Take 1 [facility] n (LIPITOR) 1-30 tablet by ity of 40 mg 00:00: mouth at [place] tablet 00 bedtime. Medical Branch carvediloL 2019-04 Yes [id number] 6.25mg Take 1 [facility] 6.25 mg 1-30 tablet by ity of tablet 00:00: mouth 2 [place] ([facility]) Medical times Branch daily with meals. atorvastati 2019-04 Yes [id number] 40mg Take 1 [facility] n (LIPITOR) 1-30 tablet by [facility]y of 40 mg 00:00: mouth at [place] tablet 00 bedtime. Medical Branch carvediloL 2019-04 Yes [id number] 6.25mg Take 1 [facility] 6.25 mg 1-30 tablet by [facility]y of tablet 00:00: mouth 2 [place] 00 (two) Medical times Branch daily with meals. atorvastati 2019-04 Yes [id number] 40mg Take 1 [facility] n (LIPITOR) 1-30 tablet by ity of 40 mg 00:00: mouth at [place] tablet 00 bedtime. Medical Branch carvediloL 2019-04 Yes [id number] 6.25mg Take 1 [facility] 6.25 mg 1-30 tablet by [facility]y of tablet 00:00: mouth 2 [place] 00 (two) Medical times Branch daily with meals. lisinopriL 2019-04 Yes [id number] 20mg Take 1 [facility] 20 mg 1-30 tablet by [facility] of tablet 00:00: mouth [place] 00 daily. Medical Branch tamsulosin 2019-04 Yes [id number] .4mg Take 1 [facility] 0.4 mg 24 1-30 capsule by [facility]y of hr capsule 00:00: mouth [place] 00 daily. Medical Branch amLODIPine 2019-04 Yes [id number] 5mg Take 1 [facility] 5 mg tablet 1-30 tablet by [facility]y of 00:00: mouth [place] 00 daily. Medical Branch atorvastati 2019-04 Yes [id number] 40mg Take 1 [facility] n (LIPITOR) 1-30 tablet by [facility]y of 40 mg 00:00: mouth at [place] tablet 00 bedtime. Medical Branch carvediloL 2019-04 Yes [id number] 6.25mg Take 1 [facility] 6.25 mg 1-30 tablet by [facility]y of tablet 00:00: mouth 2 00 (two) Medical times Branch daily with meals. lisinopriL 2019-04 Yes [id number] 20mg Take 1 [facility] 20 mg 1-30 tablet by [facility]y of tablet 00:00: mouth [place] 00 daily. Medical Branch tamsulosin 2019-04 Yes [id number] .4mg Take 1 [facility] 0.4 mg 24 1-30 capsule by [facility]y of hr capsule 00:00: mouth [place] 00 daily. Medical Branch amLODIPine 2019-04 Yes [id number] 5mg Take 1 [facility] 5 mg tablet 1-30 tablet by [facility]y of 00:00: mouth [place] 00 daily. Medical Branch atorvastati 2019-04 Yes [id number] 40mg Take 1 [facility] n (LIPITOR) 1-30 tablet by [facility]y of 40 mg 00:00: mouth at [place] tablet 00 bedtime. Medical Branch carvediloL 2019- Yes [id number] 6.25mg Take 1 [facility] 6.25 mg 1-30 tablet by [facility] of tablet 00:00: mouth 2 (two) Medical times Branch daily with meals. lisinopriL 2019-04 Yes [id number] 20mg Take 1 [facility] 20 mg 1-30 tablet by [facility] of tablet 00:00: mouth [place] 00 daily. Medical Branch tamsulosin 2019-04 Yes [id number] .4mg Take 1 [facility] 0.4 mg 24 1-30 capsule by [facility]y of hr capsule 00:00: mouth [place] 00 daily. Medical Branch amLODIPine 2019-04 Yes [id number] 5mg Take 1 [facility] 5 mg tablet 1-30 tablet by [facility] of 00:00: mouth [place] 00 daily. Medical Branch atorvastati 2019-04 Yes [id number] 40mg Take 1 [facility] n (LIPITOR) 1-30 tablet by [facility]y of 40 mg 00:00: mouth at [place] tablet 00 bedtime. Medical Branch carvediloL 2019-04 Yes [id number] 6.25mg Take 1 [facility] 6.25 mg 1-30 tablet by [facility]y of tablet 00:00: mouth 2 (two) Medical times Branch daily with meals. lisinopriL 2019-04 Yes [id number] 20mg Take 1 [facility] 20 mg 1-30 tablet by [facility] of tablet 00:00: mouth [place] 00 daily. Medical Branch tamsulosin 2019-04 Yes [id number] .4mg Take 1 [facility] 0.4 mg 24 1-30 capsule by [facility]y of hr capsule 00:00: mouth [place] 00 daily. Medical Branch amLODIPine 2019- Yes [id number] 5mg Take 1 [facility] 5 mg tablet 1-30 tablet by [facility]y of 00:00: mouth [place] 00 daily. Medical Branch atorvastati 2019- Yes [id number] 40mg Take 1 [facility] n (LIPITOR) 1-30 tablet by [facility]y of 40 mg 00:00: mouth at [place] tablet 00 bedtime. Medical Branch carvediloL 2019-04 Yes [id number] 6.25mg Take 1 [facility] 6.25 mg 1-30 tablet by [facility]y of tablet 00:00: mouth 2 [place] (two) Medical times Branch daily with meals. lisinopriL 2019- Yes [id number] 20mg Take 1 [facility] 20 mg 1-30 tablet by [facility] of tablet 00:00: mouth [place] 00 daily. Medical Branch tamsulosin 2019- Yes [id number] .4mg Take 1 [facility] 0.4 mg 24 1-30 capsule by [facility]y of hr capsule 00:00: mouth [place] 00 daily. Medical Branch amLODIPine 2019- Yes [id number] 5mg Take 1 [facility] 5 mg tablet 1-30 tablet by [facility]y of 00:00: mouth [place] 00 daily. Medical Branch atorvastati 2019- Yes [id number] 40mg Take 1 [facility] n (LIPITOR) 1-30 tablet by [facility]y of 40 mg 00:00: mouth at [place] tablet 00 bedtime. Medical Branch carvediloL 2019- Yes [id number] 6.25mg Take 1 [facility] 6.25 mg 1-30 tablet by [facility]y of tablet 00:00: mouth 2 00 (two) Medical times Branch daily with meals. lisinopriL 2019-04 Yes [id number] 20mg Take 1 [facility] 20 mg 1-30 tablet by [facility] of tablet 00:00: mouth [place] 00 daily. Medical Branch tamsulosin 2019-04 Yes [id number] .4mg Take 1 [facility] 0.4 mg 24 1-30 capsule by [facility]y of hr capsule 00:00: mouth [place] 00 daily. Medical Branch amLODIPine 2019- Yes [id number] 5mg Take 1 [facility] 5 mg tablet 1-30 tablet by [facility]y of 00:00: mouth [place] 00 daily. Medical Branch atorvastati 2019- Yes [id number] 40mg Take 1 [facility] n (LIPITOR) 1-30 tablet by [facility]y of 40 mg 00:00: mouth at [place] tablet 00 bedtime. Medical Branch carvediloL 2019- Yes [id number] 6.25mg Take 1 [facility] 6.25 mg 1-30 tablet by [facility]y of tablet 00:00: mouth 2 00 (two) Medical times Branch daily with meals. lisinopriL 2019- Yes [id number] 20mg Take 1 [facility] 20 mg 1-30 tablet by [facility]y of tablet 00:00: mouth [place] 00 daily. Medical Branch tamsulosin 2019- Yes [id number] .4mg Take 1 [facility] 0.4 mg 24 1-30 capsule by [facility]y of hr capsule 00:00: mouth [place] 00 daily. Medical Branch amLODIPine 2019- Yes [id number] 5mg Take 1 [facility] 5 mg tablet 1-30 tablet by [facility]y of 00:00: mouth [place] 00 daily. Medical Branch atorvastati 2019-04 Yes [id number] 40mg Take 1 [facility] n (LIPITOR) 1-30 tablet by [facility]y of 40 mg 00:00: mouth at [place] tablet 00 bedtime. Medical Branch carvediloL 2019- Yes [id number] 6.25mg Take 1 [facility] 6.25 mg 1-30 tablet by [facility]y of tablet 00:00: mouth 2 [place] 00 (two) Medical times Branch daily with meals. lisinopriL 2019-04 Yes [id number] 20mg Take 1 [facility] 20 mg 1-30 tablet by [facility] of tablet 00:00: mouth [place] 00 daily. Medical Branch tamsulosin 2019-04 Yes [id number] .4mg Take 1 [facility] 0.4 mg 24 1-30 capsule by [facility]y of hr capsule 00:00: mouth [place] 00 daily. [facility] Branch amLODIPine 2019-04 Yes [id number] 5mg Take 1 [facility] 5 mg tablet 1-30 tablet by [facility]y of 00:00: mouth [place] 00 daily. Medical Branch atorvastati 2019-04 Yes [id number] 40mg Take 1 [facility] n (LIPITOR) 1-30 tablet by [facility]y of 40 mg 00:00: mouth at [place] tablet 00 bedtime. Medical Branch carvediloL 2019-04 Yes [id number] 6.25mg Take 1 [facility] 6.25 mg 1-30 tablet by [facility]y of tablet 00:00: mouth 2 [place] (two) Medical times Branch daily with meals. lisinopriL 2019- Yes [id number] 20mg Take 1 [facility] 20 mg 1-30 tablet by [facility] of tablet 00:00: mouth [place] 00 daily. Medical Branch tamsulosin 2019-04 Yes [id number] .4mg Take 1 [facility] 0.4 mg 24 1-30 capsule by [facility]y of hr capsule 00:00: mouth [place] 00 daily. Medical Branch amLODIPine 2019-04 Yes [id number] 5mg Take 1 [facility] 5 mg tablet 1-30 tablet by [facility]y of 00:00: mouth [place] 00 daily. Medical Branch atorvastati 2019-04 Yes [id number] 40mg Take 1 [facility] n (LIPITOR) 1-30 tablet by [facility]y of 40 mg 00:00: mouth at [place] tablet 00 bedtime. Medical Branch carvediloL 2019-04 Yes [id number] 6.25mg Take 1 [facility] 6.25 mg 1-30 tablet by [facility]y of tablet 00:00: mouth 2 [place] 00 (two) Medical times Branch daily with meals. lisinopriL 2019-04 Yes [id number] 20mg Take 1 [facility] 20 mg 1-30 tablet by [facility]y of tablet 00:00: mouth [place] 00 daily. Medical Branch tamsulosin 2019-04 Yes [id number] .4mg Take 1 [facility] 0.4 mg 24 1-30 capsule by [facility]y of hr capsule 00:00: mouth [place] 00 daily. Medical Branch amLODIPine 2019-04 Yes [id number] 5mg Take 1 [facility] 5 mg tablet 1-30 tablet by [facility]y of 00:00: mouth [place] 00 daily. Medical Branch atorvastati 2019-04 Yes [id number] 40mg Take 1 [facility] n (LIPITOR) 1-30 tablet by [facility]y of 40 mg 00:00: mouth at [place] tablet 00 bedtime. Medical Branch carvediloL 2019-04 Yes [id number] 6.25mg Take 1 [facility] 6.25 mg 1-30 tablet by [facility]y of tablet 00:00: mouth 2 (two) Medical times Branch daily with meals. lisinopriL 2019-04 Yes [id number] 20mg Take 1 [facility] 20 mg 1-30 tablet by [facility] of tablet 00:00: mouth [place] 00 daily. Medical Branch tamsulosin 2019-04 Yes [id number] .4mg Take 1 [facility] 0.4 mg 24 1-30 capsule by [facility]y of hr capsule 00:00: mouth [place] 00 daily. Medical Branch carvediloL 2019-04 Yes [id number] 6.25mg Take 1 [facility] 6.25 mg 1-30 tablet by [facility]y of tablet 00:00: mouth 2 (two) Medical times Branch daily with meals. lisinopriL 2019-04 Yes [id number] 20mg Take 1 [facility] 20 mg 1-30 tablet by [facility] of tablet 00:00: mouth [place] 00 daily. Medical Branch tamsulosin 2019-04 Yes [id number] .4mg Take 1 [facility] 0.4 mg 24 1-30 capsule by [facility]y of hr capsule 00:00: mouth [place] 00 daily. Medical Branch amLODIPine 2019-04 Yes [id number] 5mg Take 1 [facility] 5 mg tablet 1-30 tablet by [facility]y of 00:00: mouth [place] 00 daily. Medical Branch atorvastati 2019- Yes [id number] 40mg Take 1 [facility] n (LIPITOR) 1-30 tablet by [facility]y of 40 mg 00:00: mouth at [place] tablet 00 bedtime. Medical Branch atorvastati 2019-04 Yes [id number] 40mg Take 1 [facility] n (LIPITOR) 1-30 tablet by [facility]y of 40 mg 00:00: mouth at [place] tablet 00 bedtime. Medical Branch carvediloL 2019-04 Yes [id number] 6.25mg Take 1 [facility] 6.25 mg 1-30 tablet by [facility]y of tablet 00:00: mouth 2 [place] 00 (two) Medical times Branch daily with meals. lisinopriL 2019-04 Yes [id number] 20mg Take 1 [facility] 20 mg 1-30 tablet by [facility]y of tablet 00:00: mouth [place] 00 daily. Medical Branch tamsulosin 2019-04 Yes [id number] .4mg Take 1 [facility] 0.4 mg 24 1-30 capsule by [facility]y of hr capsule 00:00: mouth [place] 00 daily. Medical Branch amLODIPine 2019-04 Yes [id number] 5mg Take 1 [facility] 5 mg tablet 1-30 tablet by [facility]y of 00:00: mouth [place] 00 daily. [facility] Branch atorvastati 2019-04 Yes [id number] 40mg Take 1 [facility] n (LIPITOR) 1-30 tablet by [facility]y of 40 mg 00:00: mouth at [place] tablet 00 bedtime. Medical Branch carvediloL 2019- Yes [id number] 6.25mg Take 1 [facility] 6.25 mg 1-30 tablet by [facility]y of tablet 00:00: mouth 2 (two) Medical times Branch daily with meals. lisinopriL 2019-04 Yes [id number] 20mg Take 1 [facility] 20 mg 1-30 tablet by [facility]y of tablet 00:00: mouth [place] 00 daily. Medical Branch tamsulosin 2019-04 Yes [id number] .4mg Take 1 [facility] 0.4 mg 24 1-30 capsule by [facility]y of hr capsule 00:00: mouth [place] 00 daily. Medical Branch amLODIPine 2019-04 Yes [id number] 5mg Take 1 [facility] 5 mg tablet 1-30 tablet by [facility]y of 00:00: mouth [place] 00 daily. Medical Branch atorvastati 2019-04 Yes [id number] 40mg Take 1 [facility] n (LIPITOR) 1-30 tablet by [facility]y of 40 mg 00:00: mouth at [place] tablet 00 bedtime. Medical Branch carvediloL 2019-04 Yes [id number] 6.25mg Take 1 [facility] 6.25 mg 1-30 tablet by [facility]y of tablet 00:00: mouth 2 (two) Medical times Branch daily with meals. lisinopriL 2019-04 Yes [id number] 20mg Take 1 [facility] 20 mg 1-30 tablet by [facility]y of tablet 00:00: mouth [place] 00 daily. Medical Branch tamsulosin 2019-04 Yes [id number] .4mg Take 1 [facility] 0.4 mg 24 1-30 capsule by ity of hr capsule 00:00: mouth [place] 00 daily. Medical Branch atorvastati 2019-04 Yes [id number] 40mg Take 1 [facility] n (LIPITOR) 1-30 tablet by ity of 40 mg 00:00: mouth at [place] tablet 00 bedtime. Medical Branch carvediloL 2019-04 Yes [id number] 6.25mg Take 1 [facility] 6.25 mg 1-30 tablet by ity of tablet 00:00: mouth 2 (two) Medical times Branch daily with meals. lisinopriL 2019-04 Yes [id number] 20mg Take 1 [facility] 20 mg 1-30 tablet by [facility]y of tablet 00:00: mouth [place] 00 daily. Medical Branch tamsulosin 2019-04 Yes [id number] .4mg Take 1 [facility] 0.4 mg 24 1-30 capsule by ity of hr capsule 00:00: mouth [place] 00 daily. Medical Branch atorvastati 2019-04 Yes [id number] 40mg Take 1 [facility] n (LIPITOR) 1-30 tablet by ity of 40 mg 00:00: mouth at [place] tablet 00 bedtime. Medical Branch carvediloL 2019-04 Yes [id number] 6.25mg Take 1 [facility] 6.25 mg 1-30 tablet by ity of tablet 00:00: mouth 2 (two) Medical times Branch daily with meals. lisinopriL 2019-04 Yes [id number] 20mg Take 1 [facility] 20 mg 1-30 tablet by [facility]y of tablet 00:00: mouth [place] 00 daily. Medical Branch tamsulosin 2019- Yes [id number] .4mg Take 1 [facility] 0.4 mg 24 1-30 capsule by ity of hr capsule 00:00: mouth [place] 00 daily. [facility] Branch atorvastati 2019- Yes [id number] 40mg Take 1 [facility] n (LIPITOR) 1-30 tablet by ity of 40 mg 00:00: mouth at [place] tablet 00 bedtime. Medical Branch carvediloL 2019- Yes [id number] 6.25mg Take 1 [facility] 6.25 mg 1-30 tablet by ity of tablet 00:00: mouth 2 00 (two) Medical times Branch daily with meals. lisinopriL 2019-04 Yes [id number] 20mg Take 1 [facility] 20 mg 1-30 tablet by [facility]y of tablet 00:00: mouth [place] 00 daily. [facility] Branch tamsulosin 2019-04 Yes [id number] .4mg Take 1 [facility] 0.4 mg 24 1-30 capsule by ity of hr capsule 00:00: mouth [place] 00 daily. [facility] Branch atorvastati 2019-04 Yes [id number] 40mg Take 1 [facility] n (LIPITOR) 1-30 tablet by ity of 40 mg 00:00: mouth at [place] tablet 00 bedtime. Medical Branch carvediloL 2019- Yes [id number] 6.25mg Take 1 [facility] 6.25 mg 1-30 tablet by ity of tablet 00:00: mouth 2 (two) Medical times Branch daily with meals. lisinopriL 2019- Yes [id number] 20mg Take 1 [facility] 20 mg 1-30 tablet by [facility] of tablet 00:00: mouth [place] 00 daily. [facility] Branch tamsulosin 2019-04 Yes [id number] .4mg Take 1 [facility] 0.4 mg 24 1-30 capsule by ity of hr capsule 00:00: mouth [place] 00 daily. [facility] Branch atorvastati 2019- Yes [id number] 40mg Take 1 [facility] n (LIPITOR) 1-30 tablet by ity of 40 mg 00:00: mouth at [place] tablet 00 bedtime. Medical Branch carvediloL 2019- Yes [id number] 6.25mg Take 1 [facility] 6.25 mg 1-30 tablet by ity of tablet 00:00: mouth 2 [place] 00 (two) Medical times Branch daily with meals. lisinopriL 2019-04 Yes [id number] 20mg Take 1 [facility] 20 mg 1-30 tablet by [facility] of tablet 00:00: mouth [place] 00 daily. [facility] Branch tamsulosin 2019-04 Yes [id number] .4mg Take 1 [facility] 0.4 mg 24 1-30 capsule by [facility]y of hr capsule 00:00: mouth [place] 00 daily. [facility] Branch atorvastati 2019-04 Yes [id number] 40mg Take 1 [facility] (LIPITOR) 1-30 tablet by [facility] 40 mg 00:00: mouth at [place] tablet 00 bedtime. [facility] carvediloL 2019-04 Yes [id number] 6.25mg Take 1 [facility] 6.25 mg 1-30 tablet by [facility] tablet 00:00: mouth 2 (two) Medical times Branch daily with meals. lisinopriL 2019-04 Yes [id number] 20mg Take 1 [facility] 20 mg 1-30 tablet by [facility] tablet 00:00: mouth [place] 00 daily. [facility] tamsulosin 2019-04 Yes [id number] .4mg Take 1 [facility] 0.4 mg 24 1-30 capsule by [facility] hr capsule 00:00: mouth [place] 00 daily. [facility] atorvastati 2019-04 Yes [id number] 40mg Take 1 [facility] (LIPITOR) 1-30 tablet by [facility] 40 mg 00:00: mouth at [place] tablet 00 bedtime. [facility] carvediloL 2019-04 Yes [id number] 6.25mg Take 1 [facility] 6.25 mg 1-30 tablet by [facility] tablet 00:00: mouth 2 (two) Medical times Branch daily with meals. lisinopriL 2019-04 Yes [id number] 20mg Take 1 [facility] 20 mg 1-30 tablet by [facility] tablet 00:00: mouth [place] 00 daily. [facility] tamsulosin 2019-04 Yes [id number] .4mg Take 1 [facility] 0.4 mg 24 1-30 capsule by [facility] hr capsule 00:00: mouth [place] 00 daily. [facility] atorvastati 2019-04 Yes [id number] 40mg Take 1 [facility] (LIPITOR) 1-30 tablet by [facility] 40 mg 00:00: mouth at [place] tablet 00 bedtime. [facility] carvediloL 2019-04 Yes [id number] 6.25mg Take 1 [facility] 6.25 mg 1-30 tablet by [facility] tablet 00:00: mouth 2 (two) Medical times Branch daily with meals. lisinopriL 2019-04 Yes [id number] 20mg Take 1 [facility] 20 mg 1-30 tablet by [facility] tablet 00:00: mouth [place] 00 daily. [facility] tamsulosin 2019-04 Yes [id number] .4mg Take 1 [facility] 0.4 mg 24 1-30 capsule by [facility] hr capsule 00:00: mouth [place] 00 daily. [facility] atorvastati 2019-04 Yes [id number] 40mg Take 1 [facility] (LIPITOR) 1-30 tablet by [facility] 40 mg 00:00: mouth at [place] tablet 00 bedtime. [facility] carvediloL 2019-04 Yes [id number] 6.25mg Take 1 [facility] 6.25 mg 1-30 tablet by [facility] tablet 00:00: mouth 2 (two) Medical times [facility] daily with meals. tamsulosin 2019-04 Yes [id number] .4mg Take 1 [facility] 0.4 mg 24 1-30 capsule by [facility] hr capsule 00:00: mouth [place] 00 daily. [facility] atorvastati 2019-04 Yes [id number] 40mg Take 1 [facility] (LIPITOR) 1-30 tablet by [facility] 40 mg 00:00: mouth at [place] tablet 00 bedtime. [facility] carvediloL 2019-04 Yes [id number] 6.25mg Take 1 [facility] 6.25 mg 1-30 tablet by [facility] tablet 00:00: mouth 2 (two) Medical times [facility] daily with meals. tamsulosin 2019-04 Yes [id number] .4mg Take 1 [facility] 0.4 mg 24 1-30 capsule by [facility] hr capsule 00:00: mouth [place] 00 daily. [facility] atorvastati 2019-04 Yes [id number] 40mg Take 1 [facility] (LIPITOR) 1-30 tablet by [facility] 40 mg 00:00: mouth at [place] tablet 00 bedtime. [facility] carvediloL 2019-04 Yes [id number] 6.25mg Take 1 [facility] 6.25 mg 1-30 tablet by [facility] of tablet 00:00: mouth 2 (two) Medical times [facility] daily with meals. tamsulosin 2019-04 Yes [id number] .4mg Take 1 [facility] 0.4 mg 24 1-30 capsule by [facility] hr capsule 00:00: mouth [place] 00 daily. [facility] atorvastati 2019-04 Yes [id number] 40mg Take 1 [facility] (LIPITOR) 1-30 tablet by [facility] 40 mg 00:00: mouth at [place] tablet 00 bedtime. [facility] carvediloL 2019-04 Yes [id number] 6.25mg Take 1 [facility] 6.25 mg 1-30 tablet by [facility] of tablet 00:00: mouth 2 [place] 00 (two) Medical times [facility] daily with meals. tamsulosin 2019-04 Yes [id number] .4mg Take 1 [facility] 0.4 mg 24 1-30 capsule by [facility] hr capsule 00:00: mouth [place] 00 daily. [facility] atorvastati 2019-04 Yes [id number] 40mg Take 1 [facility] (LIPITOR) 1-30 tablet by [facility] 40 mg 00:00: mouth at [place] tablet 00 bedtime. [facility] carvediloL 2019-04 Yes [id number] 6.25mg Take 1 [facility] 6.25 mg 1-30 tablet by [facility] of tablet 00:00: mouth 2 (two) Medical times [facility] daily with meals. tamsulosin 2019-04 Yes [id number] .4mg Take 1 [facility] 0.4 mg 24 1-30 capsule by [facility] hr capsule 00:00: mouth [place] 00 daily. [facility] atorvastati 2019-04 Yes [id number] 40mg Take 1 [facility] (LIPITOR) 1-30 tablet by [facility] 40 mg 00:00: mouth at [place] tablet 00 bedtime. [facility] carvediloL 2019-04 Yes [id number] 6.25mg Take 1 [facility] 6.25 mg 1-30 tablet by [facility] of tablet 00:00: mouth 2 00 (two) Medical times [facility] daily with meals. tamsulosin 2019-04 Yes [id number] .4mg Take 1 [facility] 0.4 mg 24 1-30 capsule by [facility] hr capsule 00:00: mouth [place] 00 daily. [facility] atorvastati 2019-04 Yes [id number] 40mg Take 1 [facility] (LIPITOR) 1-30 tablet by [facility] 40 mg 00:00: mouth at [place] tablet 00 bedtime. [facility] carvediloL 2019-04 Yes [id number] 6.25mg Take 1 [facility] 6.25 mg 1-30 tablet by [facility] of tablet 00:00: mouth 2 [place] 00 (two) Medical times Branch daily with meals. atorvastati 2019-04 Yes [id number] 40mg Take 1 [facility] (LIPITOR) 1-30 tablet by [facility] 40 mg 00:00: mouth at [place] tablet 00 bedtime. [facility] carvediloL 2019-04 Yes [id number] 6.25mg Take 1 [facility] 6.25 mg 1-30 tablet by [facility] of tablet 00:00: mouth 2 [place] 00 (two) Medical times [facility] daily with meals. atorvastati 2019-04 Yes [id number] 40mg Take 1 [facility] (LIPITOR) 1-30 tablet by [facility] 40 mg 00:00: mouth at [place] tablet 00 bedtime. [facility] carvediloL 2019-04 Yes [id number] 6.25mg Take 1 [facility] 6.25 mg 1-30 tablet by [facility] tablet 00:00: mouth 2 [place] 00 (two) Medical times [facility] daily with meals. atorvastati 2019-04 Yes [id number] 40mg Take 1 [facility] (LIPITOR) 1-30 tablet by [facility] 40 mg 00:00: mouth at [place] tablet 00 bedtime. [facility] carvediloL 2019-04- No [id number] 6.25mg Take 1 [facility] 6.25 mg 1-30 07-14 tablet by [facility] tablet 00:00: 00:00 mouth 2 [place] 00 :00 (two) Medical times [facility] daily with meals. atorvastati 2019-04- No [id number] 40mg Take 1 [facility] (LIPITOR) 1-30 07-14 tablet by [facility] y of 40 mg 00:00: 00:00 mouth at [place] tablet 00 :00 bedtime. [facility] carvediloL 2019-04- No [id number] 6.25mg Take 1 [facility] 6.25 mg 1-30 07-14 tablet by [facility] of tablet 00:00: 00:00 mouth 2 [place] 00 :00 (two) Medical times [facility] daily with meals. atorvastati 2019-04- No [id number] 40mg Take 1 [facility] (LIPITOR) 1-30 07-14 tablet by [facility] y of 40 mg 00:00: 00:00 mouth at [place] tablet 00 :00 bedtime. [facility] tamsulosin 2019-04- No [id number] .4mg Take 1 [facility] 0.4 mg 24 -30 -31 capsule by [facility] hr capsule 00:00: 00:00 mouth [place] 00 :00 daily. [facility] tamsulosin 2019-04- No [id number] .4mg Take 1 [facility] 0.4 mg 24 05-03-31 capsule by [facility] hr capsule 00:00: 00:00 mouth [place] 00 :00 daily. [facility] tamsulosin 2019-04- No [id number] .4mg Take 1 [facility] 0.4 mg 24 -30 - capsule by [facility] hr capsule 00:00: 00:00 mouth [place] 00 :00 daily. [facility] tamsulosin 2019-04- No [id number] .4mg Take 1 [facility] 0.4 mg 24 05-03- capsule by [facility] of hr capsule 00:00: 00:00 mouth [place] 00 :00 daily. [facility] lisinopriL 2019-04- No [id number] 20mg Take 1 [facility] 20 mg -30 - tablet by [facility] tablet 00:00: 00:00 mouth [place] 00 :00 daily. [facility] amLODIPine 2019-04- No [id number] 5mg Take 1 [facility] 5 mg tablet 05-03- tablet by it y of 00:00: 00:00 mouth [place] 00 :00 daily. [facility] amLODIPine 2019-04- No [id number] 5mg Take 1 [facility] 5 mg tablet 05-03- tablet by it y of 00:00: 00:00 mouth [place] 00 :00 daily. [facility] carvediloL 2019-04 Yes [id number] 6.25mg Take 1 [facility] 6.25 mg 0-23 tablet by [facility] tablet 00:00: mouth 2 [place] 00 (two) Medical times [facility] daily with meals. lisinopriL 2019-04 Yes [id number] 20mg Take 1 [facility] 20 mg 0-23 tablet by [facility] tablet 00:00: mouth [place] 00 daily. [facility] carvediloL 2019-04- No [id number] 6.25mg Take 1 [facility] 6.25 mg 0-23 -30 tablet by [facility] of tablet 00:00: 00:00 mouth 2 [place] 00 :00 (two) Medical times [facility] daily with meals. lisinopriL 2019-2019- No [id number] 20mg Take 1 [facility] 20 mg 0-23 11-30 tablet by [facility] of tablet 00:00: 00:00 mouth [place] 00 :00 daily. [facility] carvediloL 2019-04- No [id number] 6.25mg Take 1 [facility] 6.25 mg 0-23 11-30 tablet by [facility] of tablet 00:00: 00:00 mouth 2 [place] 00 :00 (two) Medical times [facility] daily with meals. lisinopriL 2019-2019- No [id number] 20mg Take 1 [facility] 20 mg 0-23 11-30 tablet by [facility] of tablet 00:00: 00:00 mouth [place] 00 :00 daily. [facility] carvediloL 2019-04- No [id number] 6.25mg Take 1 [facility] 6.25 mg 0-23 11-30 tablet by [facility] of tablet 00:00: 00:00 mouth 2 [place] 00 :00 (two) Medical times [facility] daily with meals. lisinopriL 2019-04- No [id number] 20mg Take 1 [facility] 20 mg 0-23 11-30 tablet by [facility] of tablet 00:00: 00:00 mouth [place] 00 :00 daily. [facility] TAMSULOSIN 2020-0 Yes [id number] Take 1 [facility] 0.4 mg 24 9-22 capsule by [facility] hr capsule 00:00: mouth once [place] 00 daily [facility] TAMSULOSIN 2020-0 Yes [id number] Take 1 [facility] 0.4 mg 24 9-22 capsule by [facility] hr capsule 00:00: mouth once [place] 00 daily [facility] TAMSULOSIN 2020-0 Yes [id number] Take 1 [facility] 0.4 mg 24 9-22 capsule by [facility] hr capsule 00:00: mouth once [place] 00 daily [facility] TAMSULOSIN 2020-0 Yes [id number] Take 1 [facility] 0.4 mg 24 9-22 capsule by [facility] hr capsule 00:00: mouth once [place] 00 daily [facility] TAMSULOSIN 2020-0 2020- No [id number] Take 1 [facility] 0.4 mg 24 9-22 11-30 capsule by [facility] of hr capsule 00:00: 00:00 mouth once [place] 00 :00 daily [facility] TAMSULOSIN 2020-0 2020- No [id number] Take 1 [facility] 0.4 mg 24 12-24-30 capsule by [facility] of hr capsule 00:00: 00:00 mouth once [place] 00 :00 daily [facility] TAMSULOSIN 2020-0 2020- No [id number] Take 1 [facility] 0.4 mg 24 12-24-30 capsule by [facility] of hr capsule 00:00: 00:00 mouth once [place] 00 :00 daily [facility] amLODIPine 2020-0 Yes [id number] 5mg Take 1 [facility] 5 mg tablet 8-31 tablet by [facility] of 00:00: mouth 00 daily. [facility] carvediloL 2020-0 Yes [id number] 6.25mg Take 1 [facility] 6.25 mg 8-31 tablet by [facility] of tablet 00:00: mouth (two) Medical times [facility] daily with meals. amLODIPine 2020-0 Yes [id number] 5mg Take 1 [facility] 5 mg tablet 8-31 tablet by [facility] of 00:00: mouth 00 daily. [facility] carvediloL 2020-0 Yes [id number] 6.25mg Take 1 [facility] 6.25 mg 8-31 tablet by [facility] of tablet 00:00: mouth (two) Medical times [facility] daily with meals. amLODIPine 2020-0 Yes [id number] 5mg Take 1 [facility] 5 mg tablet 8-31 tablet by [facility] of 00:00: mouth 00 daily. [facility] carvediloL 2020-0 Yes [id number] 6.25mg Take 1 [facility] 6.25 mg 8-31 tablet by [facility] of tablet 00:00: mouth (two) Medical times [facility] daily with meals. amLODIPine 2020-0 Yes [id number] 5mg Take 1 [facility] 5 mg tablet 8-31 tablet by [facility] of 00:00: mouth 00 daily. [facility] carvediloL 2020-0 Yes [id number] 6.25mg Take 1 [facility] 6.25 mg 8-31 tablet by [facility] of tablet 00:00: mouth 2 (two) Medical times [facility] daily with meals. amLODIPine 2020-0 Yes [id number] 5mg Take 1 [facility] 5 mg tablet 8-31 tablet by [facility] of 00:00: mouth 00 daily. [facility] amLODIPine 2020-0 2020- No [id number] 5mg Take 1 [facility] 5 mg tablet 12-02-30 tablet by it y of 00:00: 00:00 mouth [place] 00 :00 daily. [facility] amLODIPine 2019-0 2020- No [id number] 5mg Take 1 [facility] 5 mg tablet 12-02-30 tablet by it y of 00:00: 00:00 mouth [place] 00 :00 daily. [facility] amLODIPine 2019-0 2020- No [id number] 5mg Take 1 [facility] 5 mg tablet 12-0230 tablet by it y of 00:00: 00:00 mouth [place] 00 :00 daily. [facility] carvediloL 2019-0 2020- No [id number] 6.25mg Take 1 [facility] 6.25 mg 12-02- tablet by [facility] of tablet 00:00: 00:00 mouth 2 [place] 00 :00 (two) Medical times [facility] daily with meals. carvediloL 2019-0 Yes [id number] 6.25mg Take 1 [facility] 6.25 mg 4-07 tablet by [facility] of tablet 00:00: mouth 2 [place] 00 (two) Medical times [facility] daily with meals. amLODIPine 2019-0 Yes [id number] 5mg Take 1 [facility] 5 mg tablet 4-07 tablet by [facility] of 00:00: mouth [place] 00 daily. [facility] lisinopril 2019-0 Yes [id number] 20mg Take 1 [facility] 20 mg 4-07 tablet by [facility] of tablet 00:00: mouth [place] 00 daily. [facility] atorvastati 2019-0 Yes [id number] 40mg Take 1 [facility] (LIPITOR) 4-07 tablet by [facility] of 40 mg 00:00: mouth at [place] tablet 00 bedtime. [facility] tamsulosin 2019-0 Yes [id number] .4mg Take 1 [facility] 0.4 mg 24 4-07 capsule by [facility] of hr capsule 00:00: mouth [place] 00 daily. [facility] tiZANidine 2020-0 Yes [id number] 4mg Take 1 [facility] 4 mg tablet 4-07 tablet by [facility] of 00:00: mouth [place] 00 every 8 Medical (eight) Branch hours as needed (muscle pain or spasm). carvediloL 2019-0 Yes [id number] 6.25mg Take 1 [facility] 6.25 mg 4-07 tablet by [facility] of tablet 00:00: mouth 2 [place] 00 (two) Medical times Branch daily with meals. amLODIPine 2020-0 Yes [id number] 5mg Take 1 [facility] 5 mg tablet 4-07 tablet by [facility] of 00:00: mouth [place] 00 daily. [facility] lisinopril 2020-0 Yes [id number] 20mg Take 1 [facility] 20 mg 4-07 tablet by [facility] of tablet 00:00: mouth [place] 00 daily. [facility] atorvastati 2020-0 Yes [id number] 40mg Take 1 [facility] (LIPITOR) 4-07 tablet by [facility] of 40 mg 00:00: mouth at [place] tablet 00 bedtime. [facility] tamsulosin 2020-0 Yes [id number] .4mg Take 1 [facility] 0.4 mg 24 4-07 capsule by [facility] of hr capsule 00:00: mouth [place] 00 daily. [facility] tiZANidine 2020-0 Yes [id number] 4mg Take 1 [facility] 4 mg tablet 4-07 tablet by [facility] of 00:00: mouth [place] 00 every 8 Medical (eight) Branch hours as needed (muscle pain or spasm). carvediloL 2020-0 Yes [id number] 6.25mg Take 1 [facility] 6.25 mg 4-07 tablet by [facility] of tablet 00:00: mouth 2 [place] 00 (two) Medical times Branch daily with meals. amLODIPine 2020-0 Yes [id number] 5mg Take 1 [facility] 5 mg tablet 4-07 tablet by [facility] of 00:00: mouth [place] 00 daily. [facility] lisinopril 2020-0 Yes [id number] 20mg Take 1 [facility] 20 mg 4-07 tablet by [facility] of tablet 00:00: mouth [place] 00 daily. [facility] atorvastati 2020-0 Yes [id number] 40mg Take 1 [facility] (LIPITOR) 4-07 tablet by [facility] of 40 mg 00:00: mouth at [place] tablet 00 bedtime. [facility] tamsulosin 2020-0 Yes [id number] .4mg Take 1 [facility] 0.4 mg 24 4-07 capsule by [facility] of hr capsule 00:00: mouth [place] 00 daily. [facility] tiZANidine 2020-0 Yes [id number] 4mg Take 1 [facility] 4 mg tablet 4-07 tablet by [facility] of 00:00: mouth [place] 00 every 8 Medical (eight) Branch hours as needed (muscle pain or spasm). lisinopril 2020-0 Yes [id number] 20mg Take 1 [facility] 20 mg 4-07 tablet by [facility] of tablet 00:00: mouth [place] 00 daily. [facility] atorvastati 2020-0 Yes [id number] 40mg Take 1 [facility] (LIPITOR) 4-07 tablet by [facility] of 40 mg 00:00: mouth at [place] tablet 00 bedtime. [facility] tamsulosin 2020-0 Yes [id number] .4mg Take 1 [facility] 0.4 mg 24 4-07 capsule by [facility] of hr capsule 00:00: mouth [place] 00 daily. [facility] tiZANidine 2020-0 Yes [id number] 4mg Take 1 [facility] 4 mg tablet 4-07 tablet by [facility] of 00:00: mouth [place] 00 every 8 Medical (eight) Branch hours as needed (muscle pain or spasm). lisinopril 2020-0 Yes [id number] 20mg Take 1 [facility] 20 mg 4-07 tablet by [facility] of tablet 00:00: mouth [place] 00 daily. [facility] atorvastati 2020-0 Yes [id number] 40mg Take 1 [facility] (LIPITOR) 4-07 tablet by [facility] of 40 mg 00:00: mouth at [place] tablet 00 bedtime. [facility] tiZANidine 2020-0 Yes [id number] 4mg Take 1 [facility] 4 mg tablet 4-07 tablet by [facility] of 00:00: mouth [place] 00 every 8 Medical (eight) Branch hours as needed (muscle pain or spasm). lisinopril 2020-0 Yes [id number] 20mg Take 1 [facility] 20 mg 4-07 tablet by [facility] of tablet 00:00: mouth [place] 00 daily. [facility] atorvastati 2020-0 Yes [id number] 40mg Take 1 [facility] n (LIPITOR) 4-07 tablet by [facility] of 40 mg 00:00: mouth at [place] tablet 00 bedtime. [facility] tiZANidine 2020-0 Yes [id number] 4mg Take 1 [facility] 4 mg tablet 4-07 tablet by [facility] of 00:00: mouth [place] 00 every 8 Medical (eight) Branch hours as needed (muscle pain or spasm). lisinopril 2020-0 Yes [id number] 20mg Take 1 [facility] 20 mg 4-07 tablet by [facility] of tablet 00:00: mouth [place] 00 daily. [facility] atorvastati 2020-0 Yes [id number] 40mg Take 1 [facility] (LIPITOR) 4-07 tablet by [facility] of 40 mg 00:00: mouth at [place] tablet 00 bedtime. [facility] tiZANidine 2020-0 Yes [id number] 4mg Take 1 [facility] 4 mg tablet 4-07 tablet by [facility] of 00:00: mouth [place] 00 every 8 Medical (eight) Branch hours as needed (muscle pain or spasm). atorvastati 2020-0 Yes [id number] 40mg Take 1 [facility] n (LIPITOR) 4-07 tablet by [facility] of 40 mg 00:00: mouth at [place] tablet 00 bedtime. [facility] tiZANidine 2020-0 Yes [id number] 4mg Take 1 [facility] 4 mg tablet 4-07 tablet by [facility] of 00:00: mouth [place] 00 every 8 Medical (eight) Branch hours as needed (muscle pain or spasm). tiZANidine 2020-0 Yes [id number] 4mg Take 1 [facility] 4 mg tablet 4-07 tablet by [facility] of 00:00: mouth [place] 00 every 8 Medical (eight) Branch hours as needed (muscle pain or spasm). tiZANidine 2020-0 Yes [id number] 4mg Take 1 [facility] 4 mg tablet 4-07 tablet by [facility] of 00:00: mouth [place] 00 every 8 Medical (eight) Branch hours as needed (muscle pain or spasm). tiZANidine 2020-0 Yes [id number] 4mg Take 1 [facility] 4 mg tablet 4-07 tablet by [facility] of 00:00: mouth [place] 00 every 8 Medical (eight) Branch hours as needed (muscle pain or spasm). tiZANidine 2020-0 Yes [id number] 4mg Take 1 [facility] 4 mg tablet 4-07 tablet by [facility] of 00:00: mouth [place] 00 every 8 Medical (eight) Branch hours as needed (muscle pain or spasm). tiZANidine 2020-0 Yes [id number] 4mg Take 1 [facility] 4 mg tablet 4-07 tablet by [facility] of 00:00: mouth [place] 00 every 8 Medical (eight) Branch hours as needed (muscle pain or spasm). tiZANidine 2020-0 Yes [id number] 4mg Take 1 [facility] 4 mg tablet 4-07 tablet by [facility] of 00:00: mouth [place] 00 every 8 Medical (eight) Branch hours as needed (muscle pain or spasm). tiZANidine 2020-0 Yes [id number] 4mg Take 1 [facility] 4 mg tablet 4-07 tablet by [facility] of 00:00: mouth [place] 00 every 8 Medical (eight) Branch hours as needed (muscle pain or spasm). tiZANidine 2020-0 Yes [id number] 4mg Take 1 [facility] 4 mg tablet 4-07 tablet by [facility] of 00:00: mouth [place] 00 every 8 Medical (eight) Branch hours as needed (muscle pain or spasm). tiZANidine 2020-0 Yes [id number] 4mg Take 1 [facility] 4 mg tablet 4-07 tablet by [facility] of 00:00: mouth [place] 00 every 8 Medical (eight) Branch hours as needed (muscle pain or spasm). tiZANidine 2020-0 Yes [id number] 4mg Take 1 [facility] 4 mg tablet 4-07 tablet by [facility] of 00:00: mouth [place] 00 every 8 Medical (eight) Branch hours as needed (muscle pain or spasm). tiZANidine 2020-0 Yes [id number] 4mg Take 1 [facility] 4 mg tablet 4-07 tablet by [facility] of 00:00: mouth [place] 00 every 8 Medical (eight) Branch hours as needed (muscle pain or spasm). tiZANidine 2020-0 Yes [id number] 4mg Take 1 [facility] 4 mg tablet 4-07 tablet by [facility] of 00:00: mouth [place] 00 every 8 Medical (eight) Branch hours as needed (muscle pain or spasm). tiZANidine 2020-0 Yes [id number] 4mg Take 1 [facility] 4 mg tablet 4-07 tablet by [facility] of 00:00: mouth [place] 00 every 8 Medical (eight) Branch hours as needed (muscle pain or spasm). tiZANidine 2020-0 2020- No [id number] 4mg Take 1 [facility] 4 mg tablet 4-07 06-01 tablet by it y of 00:00: 00:00 mouth [place] 00 :00 every 8 Medical (eight) Branch hours as needed (muscle pain or spasm). tiZANidine 2020-0 2020- No [id number] 4mg Take 1 [facility] 4 mg tablet 4-07 06-01 tablet by it y of 00:00: 00:00 mouth [place] 00 :00 every 8 Medical (eight) Branch hours as needed (muscle pain or spasm). atorvastati 2020-0 2020- No [id number] 40mg Take 1 [facility] n (LIPITOR) 07-09 tablet by it y of 40 mg 00:00: 00:00 mouth at [place] tablet 00 :00 bedtime. [facility] atorvastati 2019- No [id number] 40mg Take 1 [facility] n (LIPITOR) 07-09 tablet by it y of 40 mg 00:00: 00:00 mouth at [place] tablet 00 :00 bedtime. [facility] atorvastati 2019- No [id number] 40mg Take 1 [facility] n (LIPITOR) 07-09 tablet by it y of 40 mg 00:00: 00:00 mouth at [place] tablet 00 :00 bedtime. [facility] lisinopril 2019- No [id number] 20mg Take 1 [facility] 20 mg 07-09 tablet by [facility] of tablet 00:00: 00:00 mouth [place] 00 :00 daily. [facility] tamsulosin 2019- No [id number] .4mg Take 1 [facility] 0.4 mg 24 07-09 capsule by [facility] of hr capsule 00:00: 00:00 mouth [place] 00 :00 daily. [facility] carvediloL 2019- No [id number] 6.25mg Take 1 [facility] 6.25 mg 07-09 tablet by [facility] of tablet 00:00: 00:00 mouth 2 [place] 00 :00 (two) Medical times Branch daily with meals. amLODIPine 2019- No [id number] 5mg Take 1 [facility] 5 mg tablet 07-09 tablet by it y of 00:00: 00:00 mouth [place] 00 :00 daily. [facility] TAMSULOSIN Yes [id number] TAKE 1 [facility] 0.4 mg 24 - CAPSULE BY ity of hr capsule 00:00: MOUTH ONCE [place] 00 DAILY [facility] CARVEDILOL 2019- Yes [id number] TAKE 1 [facility] 6.25 mg -31 TABLET BY [facility] of tablet 00:00: MOUTH [place] 00 TWICE Medical DAILY WITH Branch MEALS TAMSULOSIN 2019- No [id number] TAKE 1 [facility] 0.4 mg 24 1-31 04-07 CAPSULE BY ity of hr capsule 00:00: 00:00 MOUTH ONCE [place] 00 :00 DAILY [facility] Branch CARVEDILOL 2019- No [id number] TAKE 1 [facility] 6.25 mg 1--07 TABLET BY [facility] of tablet 00:00: 00:00 MOUTH [place] 00 :00 TWICE Medical DAILY WITH Branch MEALS amLODIPine 2018-04 Yes [id number] 5mg Take 1 [facility] 5 mg tablet 2- tablet by [facility] of 00:00: mouth [place] 00 daily. [facility] amLODIPine 2018-04 2020- No [id number] 5mg Take 1 [facility] 5 mg tablet 2-05 08- tablet by it y of 00:00: 00:00 mouth [place] 00 :00 daily. [facility] lisinopril 2018-04 Yes [id number] 20mg Take 1 [facility] 20 mg 0-31 tablet by [facility] of tablet 00:00: mouth [place] 00 daily. [facility] lisinopril 2018-04- No [id number] 20mg Take 1 [facility] 20 mg 0-31 -07 tablet by [facility] of tablet 00:00: 00:00 mouth [place] 00 :00 daily. [facility] aspirin 81 2018- Yes [...] [place] 01 daily. [facility] aspirin 81 2019- Yes 81mg Take 1 [facility] mg [...] [place] 01 daily. [facility] aspirin 81 2019- Yes 81mg Take 1 [facility] rs mg [...] [place] 01 daily. [facility] aspirin 81 2019- Yes 81mg Take 1 [facility] rs mg chewable 0-25 tablet by [facility] of tablet 10:23: mouth [place] 01 daily. [facility] aspirin 81 2019- Yes 81mg Take 1 [facility] rs mg chewable 0-25 tablet by [facility] of tablet 10:23: mouth [place] 01 daily. [facility] aspirin 81 2018- Yes 81mg Take 1 [facility] rs mg chewable 0-25 tablet by [facility] of tablet 10:23: mouth [place] 01 daily. [facility] atorvastati 2019- 2020- No [id number] 40mg Take 1 [facility] n (LIPITOR) 0-25 10-25 tablet by it y of 40 mg 00:00: 04:59 mouth at [place] tablet 00 :00 bedtime. [facility] atorvastati 2019- 2020- No [id number] 40mg Take 1 [facility] n (LIPITOR) 0-25 04-07 tablet by it y of 40 mg 00:00: 00:00 mouth at [place] tablet 00 :00 bedtime. [facility] Branch bacitracin 2019- No [id number] Apply to [facility] 500 711-04 affected ity of unit/gram 00:00: 04:59 area(s) 4 [place] ointment 00 :00 (four) Medical times Branch daily for 10 days. bacitracin 2019- No [id number] Apply to [facility] 500 711-04 affected ity of unit/gram 00:00: 04:59 area(s) 4 [place] ointment 00 :00 (four) Medical times Branch daily for 10 days. TAMSULOSIN Yes [id number] TAKE 1 [facility] 0.4 mg 24 6-24 CAPSULE BY ity of hr capsule 00:00: MOUTH ONCE [place] 00 DAILY [facility] TAMSULOSIN Yes [id number] TAKE 1 [facility] 0.4 mg 24 6-24 CAPSULE BY ity of hr capsule 00:00: MOUTH ONCE [place] 00 DAILY [facility] TAMSULOSIN Yes [id number] TAKE 1 [facility] 0.4 mg 24 6-24 CAPSULE BY ity of hr capsule 00:00: MOUTH ONCE [place] 00 DAILY [facility] TAMSULOSIN Yes [id number] TAKE 1 [facility] 0.4 mg 24 6-24 CAPSULE BY ity of hr capsule 00:00: MOUTH ONCE [place] 00 DAILY [facility] amLODIPine 0 Yes [id number] 5mg Take 1 [facility] 5 mg tablet 5-09 tablet by ity of 00:00: mouth [place] 00 daily. [facility] amLODIPine 0 Yes [id number] 5mg Take 1 [facility] 5 mg tablet 5-09 tablet by it[facility] of 00:00: mouth [place] 00 daily. [facility] amLODIPine 0 Yes [id number] 5mg Take 1 [facility] 5 mg tablet 5-09 tablet by it[facility] of 00:00: mouth [place] 00 daily. [facility] amLODIPine 0 Yes [id number] 5mg Take 1 [facility] 5 mg tablet 5-09 tablet by it[facility] of 00:00: mouth [place] 00 daily. [facility] lisinopril Yes [id number] 20mg Take 1 [facility] 20 mg 4-23 tablet by [facility] of tablet 00:00: mouth [place] 00 daily. [facility] lisinopril 0 Yes [id number] 20mg Take 1 [facility] 20 mg 4-23 tablet by [facility] of tablet 00:00: mouth [place] 00 daily. [facility] lisinopril 0 Yes [id number] 20mg Take 1 [facility] 20 mg 4-23 tablet by it[facility] of tablet 00:00: mouth [place] 00 daily. [facility] lisinopril 0 Yes [id number] 20mg Take 1 [facility] nivers 20 mg [...] (muscle pain or spasm). carvedilol 2017-04 Yes [id number] 6.25mg Take 1 [facility] 6.25 mg 0-05 tablet by ity of tablet 00:00: mouth 2 [place] 00 (two) Medical times Branch daily with meals. carvedilol 2017-04 Yes [id number] 6.25mg Take 1 [facility] 6.25 mg 0-05 tablet by ity of tablet 00:00: mouth 2 (two) Medical times Branch daily with meals. carvedilol 2017-04 Yes [id number] 6.25mg Take 1 [facility] 6.25 mg 0-05 tablet by ity of tablet 00:00: mouth 2 (two) Medical times Branch daily with meals. carvedilol 2017-04 Yes [id number] 6.25mg Take 1 [facility] 6.25 mg 0-05 tablet by ity of tablet 00:00: mouth 2 (two) Medical times Branch daily with meals. No known No [facility] Immunizations Ordered Filled Immunization Date Status Comments [facility] Immunization Name Name SARS-COV-2 COVID-19 2022-02-01 Completed Unive rsity of MAY-SUCROSE 00:00:00 [place] [facility] VACCINE 12 YRS+, Branch BIVALENT 0.3ML, IM, (PFIZER PADILLA TOP BOOSTER) SARS-COV-2 COVID-19 2022-02-01 Completed Unive rsity of MAY-SUCROSE 00:00:00 [place] [facility] VACCINE 12 YRS+, Branch BIVALENT 0.3ML, IM, (PFIZER PADILLA TOP BOOSTER) SARS-COV-2 COVID-19 2022-02-01 Completed Unive rsity of MAY-SUCROSE 00:00:00 [place] [facility] VACCINE 12 YRS+, Branch BIVALENT 0.3ML, IM, (PFIZER PADILLA TOP BOOSTER) SARS-COV-2 COVID-19 2022-02-01 Completed Unive rsity of MAY-SUCROSE 00:00:00 [place] [facility] VACCINE 12 YRS+, Branch BIVALENT 0.3ML, IM, (PFIZER PADILLA TOP BOOSTER) SARS-COV-2 COVID-19 2022-02-01 Completed Unive rsity of MAY-SUCROSE 00:00:00 [place] [facility] VACCINE 12 YRS+, Branch BIVALENT 0.3ML, IM, (PFIZER PADILLA TOP BOOSTER) SARS-COV-2 COVID-19 2022-02-01 Completed Unive rsity of MAY-SUCROSE 00:00:00 [place] [facility] VACCINE 12 YRS+, Branch BIVALENT 0.3ML, IM, (PFIZER PADILLA TOP) SARS-COV-2 COVID-19 2022-02-01 Completed Unive rsity of MAY-SUCROSE 00:00:00 [place] [facility] VACCINE 12 YRS+, Branch BIVALENT 0.3ML, IM, (PFIZER PADILLA TOP) SARS-COV-2 COVID-19 2022-02-01 Completed Unive rsity of MAY-SUCROSE 00:00:00 [place] [facility] VACCINE 12 YRS+, Branch BIVALENT 0.3ML, IM, (PFIZER PADILLA TOP) SARS-COV-2 COVID-19 2022-02-01 Completed Unive rsity of MAY-SUCROSE 00:00:00 [place] [facility] VACCINE 12 YRS+, Branch BIVALENT 0.3ML, IM, (PFIZER PADILLA TOP) SARS-COV-2 COVID-19 2022-02-01 Completed Unive rsity of MAY-SUCROSE 00:00:00 [place] [facility] VACCINE 12 YRS+, Branch BIVALENT 0.3ML, IM, (PFIZER PADILLA TOP) SARS-COV-2 COVID-19 2022-02-01 Completed Unive rsity of MAY-SUCROSE 00:00:00 [place] [facility] VACCINE 12 YRS+, Branch BIVALENT 0.3ML, IM, (PFIZER PADILLA TOP) SARS-COV-2 COVID-19 2022-02-01 Completed Unive rsity of MAY-SUCROSE 00:00:00 [place] [facility] VACCINE 12 YRS+, Branch BIVALENT 0.3ML, IM, (PFIZER PADILLA TOP) SARS-COV-2 COVID-19 2022-02-01 Completed Unive rsity of MAY-SUCROSE 00:00:00 [place] [facility] VACCINE 12 YRS+, Branch BIVALENT 0.3ML, IM, (PFIZER PADILLA TOP) SARS-COV-2 COVID-19 2022-02-01 Completed Unive rsity of MAY-SUCROSE 00:00:00 [place] [facility] VACCINE 12 YRS+, Branch BIVALENT 0.3ML, IM, (PFIZER PADILLA TOP) SARS-COV-2 COVID-19 2022-02-01 Completed Unive rsity of MAY-SUCROSE 00:00:00 [place] [facility] VACCINE 12 YRS+, Branch BIVALENT 0.3ML, IM, (PFIZER PADILLA TOP) SARS-COV-2 COVID-19 2022-02-01 Completed Unive rsity of MAY-SUCROSE 00:00:00 [place] [facility] VACCINE 12 YRS+, Branch BIVALENT 0.3ML, IM, (PFIZER PADILLA TOP) SARS-COV-2 COVID-19 2022-02-01 Completed Unive rsity of MAY-SUCROSE 00:00:00 [place] [facility] VACCINE 12 YRS+, Branch BIVALENT 0.3ML, IM, (PFIZER PADILLA TOP BOOSTER) SARS-COV-2 COVID-19 2022-02-01 Completed Unive rsity of MAY-SUCROSE 00:00:00 [place] [facility] VACCINE 12 YRS+, Branch BIVALENT 0.3ML, IM, (PFIZER PADILLA TOP BOOSTER) SARS-COV-2 COVID-19 2022-02-01 Completed Unive rsity of MAY-SUCROSE 00:00:00 [place] [facility] VACCINE 12 YRS+, Branch BIVALENT 0.3ML, IM, (PFIZER PADILLA TOP BOOSTER) Pneumococcal 20 2022-01-22 Completed Universit y of Conjugate, PCV20 00:00:00 [place] [facility] (Prevnar 20) Branch Pneumococcal 20 2022-01-22 Completed Universit y of Conjugate, PCV20 00:00:00 [place] [facility] (Prevnar 20) Branch Pneumococcal 20 2022-01-22 Completed Universit y of Conjugate, PCV20 00:00:00 [place] [facility] (Prevnar 20) Branch Pneumococcal 20 2022-01-22 Completed Universit y of Conjugate, PCV20 00:00:00 [place] [facility] (Prevnar 20) Branch Pneumococcal 20 2022-01-22 Completed Universit y of Conjugate, PCV20 00:00:00 [place] [facility] (Prevnar 20) Branch Pneumococcal 20 2022-01-22 Completed Universit y of Conjugate, PCV20 00:00:00 [place] [facility] (Prevnar 20) Branch Pneumococcal 20 2022-01-22 Completed Universit y of Conjugate, PCV20 00:00:00 [place] [facility] (Prevnar 20) Branch Pneumococcal 20 2022-01-22 Completed Universit y of Conjugate, PCV20 00:00:00 [place] [facility] (Prevnar 20) Branch Pneumococcal 20 2022-01-22 Completed Universit y of Conjugate, PCV20 00:00:00 [place] [facility] (Prevnar 20) Branch Pneumococcal 20 2022-01-22 Completed Universit y of Conjugate, PCV20 00:00:00 [place] [facility] (Prevnar 20) Branch Pneumococcal 20 2022-01-22 Completed Universit y of Conjugate, PCV20 00:00:00 [place] [facility] (Prevnar 20) Branch Pneumococcal 20 2022-01-22 Completed Universit y of Conjugate, PCV20 00:00:00 [place] [facility] (Prevnar 20) Branch Pneumococcal 20 2022-01-22 Completed Universit y of Conjugate, PCV20 00:00:00 [place] [facility] (Prevnar 20) Branch Pneumococcal 20 2022-01-22 Completed Universit y of Conjugate, PCV20 00:00:00 [place] [facility] (Prevnar 20) Branch Pneumococcal 20 2022-01-22 Completed Universit y of Conjugate, PCV20 00:00:00 [place] [facility] (Prevnar 20) Branch Pneumococcal 20 2022-01-22 Completed Universit y of Conjugate, PCV20 00:00:00 [place] [facility] (Prevnar 20) Branch Pneumococcal 20 2022-01-22 Completed Universit y of Conjugate, PCV20 00:00:00 [place] [facility] (Prevnar 20) Branch Pneumococcal 20 2022-01-22 Completed Universit y of Conjugate, PCV20 00:00:00 [place] [facility] (Prevnar 20) Branch Pneumococcal 20 2022-01-22 Completed Universit y of Conjugate, PCV20 00:00:00 [place] [facility] (Prevnar 20) Branch Pneumococcal 20 2022-01-22 Completed Universit y of Conjugate, PCV20 00:00:00 [place] [facility] (Prevnar 20) Branch Pneumococcal 20 2022-01-22 Completed Universit y of Conjugate, PCV20 00:00:00 [facility] dical (Prevnar 20) Branch SARS-COV-2 COVID-19 2021-01-30 Completed Unive rsity of PFIZER VACCINE 00:00:00 [facility] SARS-COV-2 COVID-19 2021-01-30 Completed Unive rsity of PFIZER VACCINE 00:00:00 [facility] SARS-COV-2 COVID-19 2021-01-30 Completed Unive rsity of PFIZER VACCINE 00:00:00 [facility] SARS-COV-2 COVID-19 2021-01-30 Completed Unive rsity of PFIZER VACCINE 00:00:00 [facility] SARS-COV-2 COVID-19 2021-01-30 Completed Unive rsity of PFIZER VACCINE 00:00:00 [facility] SARS-COV-2 COVID-19 2021-01-30 Completed Unive rsity of PFIZER VACCINE 00:00:00 [facility] SARS-COV-2 COVID-19 2021-01-30 Completed Unive rsity of PFIZER VACCINE 00:00:00 [facility] SARS-COV-2 COVID-19 2021-01-30 Completed Unive rsity of PFIZER VACCINE 00:00:00 [facility] SARS-COV-2 COVID-19 2021-01-30 Completed Unive rsity of PFIZER VACCINE 00:00:00 [facility] SARS-COV-2 COVID-19 2021-01-30 Completed Unive rsity of PFIZER VACCINE 00:00:00 [facility] SARS-COV-2 COVID-19 2021-01-30 Completed Unive rsity of PFIZER VACCINE 00:00:00 [facility] SARS-COV-2 COVID-19 2021-01-30 Completed Unive rsity of PFIZER VACCINE 00:00:00 [facility] SARS-COV-2 COVID-19 2021-01-30 Completed Unive rsity of PFIZER VACCINE 00:00:00 [facility] SARS-COV-2 COVID-19 2021-01-30 Completed Unive rsity of PFIZER VACCINE 00:00:00 [facility] SARS-COV-2 COVID-19 2021-01-30 Completed Unive rsity of PFIZER VACCINE 00:00:00 [facility] SARS-COV-2 COVID-19 2021-01-30 Completed Unive rsity of PFIZER VACCINE 00:00:00 [facility] SARS-COV-2 COVID-19 2021-01-30 Completed Unive rsity of PFIZER VACCINE 00:00:00 [facility] SARS-COV-2 COVID-19 2021-01-30 Completed Unive rsity of PFIZER VACCINE 00:00:00 [facility] SARS-COV-2 COVID-19 2021-01-30 Completed Unive rsity of PFIZER VACCINE 00:00:00 [facility] SARS-COV-2 COVID-19 2021-01-30 Completed Unive rsity of PFIZER VACCINE 00:00:00 [facility] SARS-COV-2 COVID-19 2021-01-30 Completed Unive rsity of PFIZER VACCINE 00:00:00 [facility] SARS-COV-2 COVID-19 2021-01-30 Completed Unive rsity of PFIZER VACCINE 00:00:00 [facility] SARS-COV-2 COVID-19 2021-01-30 Completed Unive rsity of PFIZER VACCINE 00:00:00 [facility] SARS-COV-2 COVID-19 2021-01-30 Completed Unive rsity of PFIZER VACCINE 00:00:00 [facility] SARS-COV-2 COVID-19 2021-01-30 Completed Unive rsity of PFIZER VACCINE 00:00:00 [facility] SARS-COV-2 COVID-19 2021-01-30 Completed Unive rsity of PFIZER VACCINE 00:00:00 [facility] Pneumococcal 2020-12-15 Completed University o f [...] 2020-12-15 Completed University o f Polysaccharide, 00:00:00 [facility] ica PPSV23 (PNEUMOVAX) Branch SARS-COV-2 COVID-19 2020-06-21 Completed Unive rsity of PFIZER VACCINE 00:00:00 [facility] SARS-COV-2 COVID-19 2020-06-21 Completed Unive rsity of PFIZER VACCINE 00:00:00 [facility] SARS-COV-2 COVID-19 2020-06-21 Completed Unive rsity of PFIZER VACCINE 00:00:00 [facility] SARS-COV-2 COVID-19 2020-06-21 Completed Unive rsity of PFIZER VACCINE 00:00:00 [facility] SARS-COV-2 COVID-19 2020-06-21 Completed Unive rsity of PFIZER VACCINE 00:00:00 [facility] SARS-COV-2 COVID-19 2020-06-21 Completed Unive rsity of PFIZER VACCINE 00:00:00 [facility] SARS-COV-2 COVID-19 2020-06-21 Completed Unive rsity of PFIZER VACCINE 00:00:00 [facility] SARS-COV-2 COVID-19 2020-06-21 Completed Unive rsity of PFIZER VACCINE 00:00:00 [facility] SARS-COV-2 COVID-19 2020-06-21 Completed Unive rsity of PFIZER VACCINE 00:00:00 [facility] SARS-COV-2 COVID-19 2020-06-21 Completed Unive rsity of PFIZER VACCINE 00:00:00 [facility] SARS-COV-2 COVID-19 2020-06-21 Completed Unive rsity of PFIZER VACCINE 00:00:00 [facility] SARS-COV-2 COVID-19 2020-06-21 Completed Unive rsity of PFIZER VACCINE 00:00:00 [facility] SARS-COV-2 COVID-19 2020-06-21 Completed Unive rsity of PFIZER VACCINE 00:00:00 [facility] SARS-COV-2 COVID-19 2020-06-21 Completed Unive rsity of PFIZER VACCINE 00:00:00 [facility] SARS-COV-2 COVID-19 2020-06-21 Completed Unive rsity of PFIZER VACCINE 00:00:00 [facility] SARS-COV-2 COVID-19 2020-06-21 Completed Unive rsity of PFIZER VACCINE 00:00:00 [facility] SARS-COV-2 COVID-19 2020-06-21 Completed Unive rsity of PFIZER VACCINE 00:00:00 [facility] SARS-COV-2 COVID-19 2020-06-21 Completed Unive rsity of PFIZER VACCINE 00:00:00 [facility] SARS-COV-2 COVID-19 2020-06-21 Completed Unive rsity of PFIZER VACCINE 00:00:00 [facility] SARS-COV-2 COVID-19 2020-06-21 Completed Unive rsity of PFIZER VACCINE 00:00:00 [facility] SARS-COV-2 COVID-19 2020-06-21 Completed Unive rsity of PFIZER VACCINE 00:00:00 [facility] SARS-COV-2 COVID-19 2020-06-21 Completed Unive rsity of PFIZER VACCINE 00:00:00 [facility] SARS-COV-2 COVID-19 2020-06-21 Completed Unive rsity of PFIZER VACCINE 00:00:00 [facility] SARS-COV-2 COVID-19 2020-06-21 Completed Unive rsity of PFIZER VACCINE 00:00:00 [facility] SARS-COV-2 COVID-19 2020-06-21 Completed Unive rsity of PFIZER VACCINE 00:00:00 [facility] SARS-COV-2 COVID-19 2020-06-21 Completed Unive rsity of PFIZER VACCINE 00:00:00 [facility] SARS-COV-2 COVID-19 2020-06-21 Completed Unive rsity of PFIZER VACCINE 00:00:00 [facility] SARS-COV-2 COVID-19 2020-06-21 Completed Unive rsity of PFIZER VACCINE 00:00:00 [facility] SARS-COV-2 COVID-19 2020-06-21 Completed Unive rsity of PFIZER VACCINE 00:00:00 [facility] SARS-COV-2 COVID-19 2020-06-21 Completed Unive rsity of PFIZER VACCINE 00:00:00 [facility] SARS-COV-2 COVID-19 2020-06-21 Completed Unive rsity of PFIZER VACCINE 00:00:00 [facility] SARS-COV-2 COVID-19 2020-06-21 Completed Unive rsity of PFIZER VACCINE 00:00:00 [facility] SARS-COV-2 COVID-19 2020-06-21 Completed Unive rsity of PFIZER VACCINE 00:00:00 [facility] SARS-COV-2 COVID-19 2020-06-21 Completed Unive rsity of PFIZER VACCINE 00:00:00 [facility] SARS-COV-2 COVID-19 2020-06-21 Completed Unive rsity of PFIZER VACCINE 00:00:00 [facility] SARS-COV-2 COVID-19 2020-05-31 Completed Unive rsity of PFIZER VACCINE 00:00:00 [facility] SARS-COV-2 COVID-19 2020-05-31 Completed Unive rsity of PFIZER VACCINE 00:00:00 [facility] SARS-COV-2 COVID-19 2020-05-31 Completed Unive rsity of PFIZER VACCINE 00:00:00 [facility] SARS-COV-2 COVID-19 2020-05-31 Completed Unive rsity of PFIZER VACCINE 00:00:00 [facility] SARS-COV-2 COVID-19 2020-05-31 Completed Unive rsity of PFIZER VACCINE 00:00:00 [facility] SARS-COV-2 COVID-19 2020-05-31 Completed Unive rsity of PFIZER VACCINE 00:00:00 [facility] SARS-COV-2 COVID-19 2020-05-31 Completed Unive rsity of PFIZER VACCINE 00:00:00 [facility] SARS-COV-2 COVID-19 2020-05-31 Completed Unive rsity of PFIZER VACCINE 00:00:00 [facility] SARS-COV-2 COVID-19 2020-05-31 Completed Unive rsity of PFIZER VACCINE 00:00:00 [facility] SARS-COV-2 COVID-19 2020-05-31 Completed Unive rsity of PFIZER VACCINE 00:00:00 [facility] SARS-COV-2 COVID-19 2020-05-31 Completed Unive rsity of PFIZER VACCINE 00:00:00 [facility] SARS-COV-2 COVID-19 2020-05-31 Completed Unive rsity of PFIZER VACCINE 00:00:00 [facility] SARS-COV-2 COVID-19 2020-05-31 Completed Unive rsity of PFIZER VACCINE 00:00:00 [facility] SARS-COV-2 COVID-19 2020-05-31 Completed Unive rsity of PFIZER VACCINE 00:00:00 [facility] SARS-COV-2 COVID-19 2020-05-31 Completed Unive rsity of PFIZER VACCINE 00:00:00 [facility] SARS-COV-2 COVID-19 2020-05-31 Completed Unive rsity of PFIZER VACCINE 00:00:00 [facility] SARS-COV-2 COVID-19 2020-05-31 Completed Unive rsity of PFIZER VACCINE 00:00:00 [facility] SARS-COV-2 COVID-19 2020-05-31 Completed Unive rsity of PFIZER VACCINE 00:00:00 [facility] SARS-COV-2 COVID-19 2020-05-31 Completed Unive rsity of PFIZER VACCINE 00:00:00 [facility] SARS-COV-2 COVID-19 2020-05-31 Completed Unive rsity of PFIZER VACCINE 00:00:00 [facility] SARS-COV-2 COVID-19 2020-05-31 Completed Unive rsity of PFIZER VACCINE 00:00:00 [facility] SARS-COV-2 COVID-19 2020-05-31 Completed Unive rsity of PFIZER VACCINE 00:00:00 [facility] SARS-COV-2 COVID-19 2020-05-31 Completed Unive rsity of PFIZER VACCINE 00:00:00 [facility] SARS-COV-2 COVID-19 2020-05-31 Completed Unive rsity of PFIZER VACCINE 00:00:00 [facility] SARS-COV-2 COVID-19 2020-05-31 Completed Unive rsity of PFIZER VACCINE 00:00:00 [facility] SARS-COV-2 COVID-19 2020-05-31 Completed Unive rsity of PFIZER VACCINE 00:00:00 [facility] SARS-COV-2 COVID-19 2020-05-31 Completed Unive rsity of PFIZER VACCINE 00:00:00 [facility] SARS-COV-2 COVID-19 2020-05-31 Completed Unive rsity of PFIZER VACCINE 00:00:00 [facility] SARS-COV-2 COVID-19 2020-05-31 Completed Unive rsity of PFIZER VACCINE 00:00:00 [facility] SARS-COV-2 COVID-19 2020-05-31 Completed Unive rsity of PFIZER VACCINE 00:00:00 [facility] SARS-COV-2 COVID-19 2020-05-31 Completed Unive rsity of PFIZER VACCINE 00:00:00 [facility] SARS-COV-2 COVID-19 2020-05-31 Completed Unive rsity of PFIZER VACCINE 00:00:00 [facility] SARS-COV-2 COVID-19 2020-05-31 Completed Unive rsity of PFIZER VACCINE 00:00:00 [facility] SARS-COV-2 COVID-19 2020-05-31 Completed Unive rsity of PFIZER VACCINE 00:00:00 [facility] SARS-COV-2 COVID-19 2020-05-31 Completed Unive rsity of PFIZER VACCINE 00:00:00 [facility] Pneumococcal 2020-03-03 Completed University o f Polysaccharide, [...] 00:00:00 [place] [facility] PPSV23 (PNEUMOVAX) Branch Influenza Virus 2019-12-04 Completed Universit y of Vaccine Quad ID 00:00:00 [facility] 18-64 YRS [place] Influenza Virus 2019-12-04 Completed Universit y of Vaccine Recomb Quad 00:00:00 [place] [facility] IM, Preserv and ABX Branc h Free 18-64 YRS Influenza Virus 2019-12-04 Completed Universit y of Vaccine Quad ID 00:00:00 [facility] 18-64 YRS Branch Influenza Virus 2019-12-04 Completed Universit y of Vaccine Recomb Quad 00:00:00 [place] [facility] IM, Preserv and ABX Branc h Free 18-64 YRS Influenza Virus 2019-12-04 Completed Universit y of Vaccine Quad ID 00:00:00 [facility] 18-64 YRS Branch Influenza Virus 2019-12-04 Completed Universit y of Vaccine Recomb Quad 00:00:00 [place] [facility] IM, Preserv and ABX Branc h Free 18-64 YRS Influenza Virus 2019-12-04 Completed Universit y of Vaccine Quad ID 00:00:00 [facility] 18-64 YRS Branch Influenza Virus 2019-12-04 Completed Universit y of Vaccine Recomb Quad 00:00:00 [facility] IM, Preserv and ABX Branc h Free 18-64 YRS Influenza Virus 2019-12-04 Completed [facility]it y of Vaccine Quad ID 00:00:00 [place] [facility] 18-64 YRS Branch Influenza Virus 2019-12-04 Completed [facility]it y of Vaccine Recomb Quad 00:00:00 [place] [facility] IM, Preserv and ABX Branc h Free 18-64 YRS Influenza Virus 2019-12-04 Completed Universit y of Vaccine Quad ID 00:00:00 [facility] 18-64 YRS Branch Influenza Virus 2019-12-04 Completed Universit y of Vaccine Recomb Quad 00:00:00 [place] [facility] IM, Preserv and ABX Branc h Free 18-64 YRS Influenza Virus 2019-12-04 Completed Universit y of Vaccine Quad ID 00:00:00 [facility] 18-64 YRS Branch Influenza Virus 2019-12-04 Completed Universit y of Vaccine Recomb Quad 00:00:00 [place] [facility] IM, Preserv and ABX Branc h Free 18-64 YRS Influenza Virus 2019-12-04 Completed Universit y of Vaccine Quad ID 00:00:00 [facility] 18-64 YRS [place] Influenza Virus 2019-12-04 Completed Universit y of Vaccine Recomb Quad 00:00:00 [place] [facility] IM, Preserv and ABX Branc h Free 18-64 YRS Influenza Virus 2019-12-04 Completed Universit y of Vaccine Quad ID 00:00:00 [facility] 18-64 YRS Branch Influenza Virus 2019-12-04 Completed Universit y of Vaccine Recomb Quad 00:00:00 [place] [facility] IM, Preserv and ABX Branc h Free 18-64 YRS Influenza Virus 2019-12-04 Completed Universit y of Vaccine Quad ID 00:00:00 [facility] 18-64 YRS Branch Influenza Virus 2019-12-04 Completed Universit y of Vaccine Recomb Quad 00:00:00 [place] [facility] IM, Preserv and ABX Branc h Free 18-64 YRS Influenza Virus 2019-12-04 Completed Universit y of Vaccine Quad ID 00:00:00 [facility] 18-64 YRS Branch Influenza Virus 2019-12-04 Completed Universit y of Vaccine Recomb Quad 00:00:00 [place] [facility] IM, Preserv and ABX Branc h Free 18-64 YRS Influenza Virus 2019-12-04 Completed Universit y of Vaccine Quad ID 00:00:00 [facility] 18-64 YRS Branch Influenza Virus 2019-12-04 [...] Universit y of Vaccine Quad ID 00:00:00 [facility] 18-64 YRS [place] Influenza Virus 2019-12-04 Completed [facility]it y of Vaccine Recomb Quad 00:00:00 [place] [facility] IM, Preserv and ABX Branc h Free 18-64 YRS Influenza Virus 2019-12-04 Completed [facility]it y of Vaccine Quad ID 00:00:00 [facility] 18-64 YRS [place] Influenza Virus 2019-12-04 Completed Universit y of Vaccine Quad ID 00:00:00 [facility] 18-64 YRS [place] Influenza Virus 2019-12-04 Completed [facility]it y of Vaccine Quad ID 00:00:00 [facility] 18-64 YRS Branch Influenza Virus 2019-12-04 Completed [facility] y of Vaccine Quad ID 00:00:00 [place] [facility] 18-64 YRS [place] Influenza Virus 2019-12-04 Completed Universit y of [...] Universit y of Vaccine Quad ID 00:00:00 [facility] 18-64 YRS Branch Influenza Virus 2019-12-04 Completed [facility]it y of Vaccine Recomb Quad 00:00:00 [place] [facility] IM, Preserv and ABX Branc h Free 18-64 YRS Influenza Virus 2019-12-04 Completed [facility]it y of Vaccine Quad ID 00:00:00 [facility] 18-64 YRS [place] Influenza Virus 2019-12-04 Completed [facility]it y of Vaccine Recomb Quad 00:00:00 [place] [facility] IM, Preserv and ABX Branc h Free 18-64 YRS Influenza Virus 2019-12-04 Completed [facility]it y of Vaccine Quad ID 00:00:00 [facility] 18-64 YRS [place] Influenza Virus 2019-12-04 Completed [facility]it y of Vaccine Recomb Quad 00:00:00 [place] [facility] IM, Preserv and ABX Branc h Free 18-64 YRS Influenza Virus 2019-12-04 Completed [facility]it y of Vaccine Quad ID 00:00:00 [place] [facility] 18-64 [facility] Influenza Virus 2019-12-04 Completed [facility]it y of Vaccine Recomb Quad 00:00:00 [facility], Preserv and ABX Branc h Free 18-64 YRS Influenza Virus 2019-12-04 Completed [facility]it y of Vaccine Quad ID 00:00:00 [place] [facility] 18-64 Y[facility] Influenza Virus 2019-12-04 Completed [facility]it y of Vaccine Recomb Quad 00:00:00 [facility], Preserv and ABX Branc h Free 18-64 YRS Influenza Virus 2019-12-04 Completed Universit y of Vaccine Quad ID 00:00:00 [facility] ical 18-64 YRS Branch Influenza Virus 2019-12-04 Completed Universit y of Vaccine Recomb Quad 00:00:00 [facility], Preserv and ABX Branc h Free 18-64 YRS Influenza Virus 2019-12-04 Completed Universit y of Vaccine Quad ID 00:00:00 [facility] ical 18-64 YRS Branch Influenza Virus 2019-12-04 Completed [facility]it y of Vaccine Recomb Quad 00:00:00 [facility], Preserv and ABX Branc h Free 18-64 YRS Influenza Virus 2019-12-04 Completed Universit y of Vaccine Quad ID 00:00:00 [facility] ica 18-64 YRS [place] Influenza Virus 2019-12-04 Completed Universit y of Vaccine Recomb Quad 00:00:00 [facility], Preserv and ABX Branc h Free 18-64 YRS Influenza Virus 2019-12-04 Completed Universit y of Vaccine Quad ID 00:00:00 [facility] ica 18-64 YRS [place] Influenza Virus 2019-12-04 Completed [facility]it y of Vaccine Recomb Quad 00:00:00 [facility], Preserv and ABX Branc h Free 18-64 YRS Influenza Virus 2019-12-04 Completed Universit y of Vaccine Quad ID 00:00:00 [facility] 18-64 YRS [place] Influenza Virus 2019-12-04 Completed Universit y of Vaccine Quad ID 00:00:00 [facility] ica 18-64 YRS [place] Influenza Virus 2019-12-04 Completed [facility]it y of Vaccine Recomb Quad 00:00:00 [facility], Preserv and ABX Branc h Free 18-64 YRS Influenza Virus 2019-12-04 Completed [facility]it y of Vaccine Recomb Quad 00:00:00 [facility], Preserv and ABX Branc h Free 18-64 YRS Influenza Virus 2019-12-04 Completed [facility]it y of Vaccine Quad ID 00:00:00 [facility] ica 18-64 YRS [place] Influenza Virus 2019-12-04 Completed [facility]it y of Vaccine Recomb Quad 00:00:00 [facility], Preserv and ABX Branc h Free 18-64 YRS Influenza Virus 2019-12-04 Completed [facility]it y of Vaccine Quad ID 00:00:00 [facility] ical 18-64 YRS [place] Influenza Virus 2019-12-04 Completed Universit y of [...] Universit y of Vaccine Quad ID 00:00:00 [facility] ical 18-64 YRS Branch Influenza Virus 2019-12-04 Completed [facility]it y of Vaccine Recomb Quad 00:00:00 [facility], Preserv and ABX Branc h Free 18-64 YRS Influenza Virus 2019-12-04 Completed [facility]it y of Vaccine Quad ID 00:00:00 [facility] ical 18-64 YRS Branch Influenza Virus 2019-12-04 [...] y of Vaccine Quad ID 00:00:00 [facility] ica 18-64 YRS Branch Influenza Virus 2019-12-04 [...] Universit y of Vaccine Quad ID 00:00:00 [place] [facility] 18-64 Y[facility] Branch Influenza Virus [...] Universit y of Vaccine Quad ID 00:00:00 [facility] ical 18-64 YRS Branch Influenza Virus 2019-01-10 Completed [facility]it y of Vaccine Quad ID 00:00:00 [facility] ical 18-64 YRS Branch Influenza Virus 2019-01-10 Completed [facility]it y of Vaccine Quad ID 00:00:00 [facility] ical 18-64 YRS Branch Influenza Virus 2019-01-10 Completed [facility]it y of Vaccine Quad ID 00:00:00 [facility] ical 18-64 YRS Branch Influenza Virus 2019-01-10 Completed [facility]it y of Vaccine Quad ID 00:00:00 [facility] ical 18-64 YRS [place] Influenza Virus 2019-01-10 Completed [facility]it y of Vaccine Quad ID 00:00:00 [facility] ical 18-64 YRS Branch Influenza Virus 2019-01-10 Completed [facility] y of Vaccine Quad ID 00:00:00 [place] [facility] 18-64 Y[facility] Influenza Virus 2019-01-10 Completed [facility] of Vaccine Quad ID 00:00:00 [facility] 18-64 Y[facility] Influenza Virus 2019-01-10 Completed [facility] of Vaccine Quad ID 00:00:00 [place] [facility] 18-64 Y[facility] Influenza Virus 2019-01-10 Completed [facility] of Vaccine Quad ID 00:00:00 [place] [facility] 18-64 Y[facility] [place] Influenza Virus 2019-01-10 Completed [facility] y of Vaccine Quad ID 00:00:00 [place] [facility] 18-64 Y[facility] Branch Influenza Virus [...] [facility]it y of Vaccine Quad ID 00:00:00 [facility] ical 18-64 YRS [place] Influenza Virus 2019-01-10 Completed [facility]it y of Vaccine Quad ID 00:00:00 [facility] ical 18-64 YRS Branch Influenza Virus 2019-01-10 Completed [facility]it y of Vaccine Quad ID 00:00:00 [facility] ical 18-64 YRS Branch Influenza Virus 2019-01-10 Completed [facility]it y of Vaccine Quad ID 00:00:00 [facility] ical 18-64 YRS Branch Influenza Virus 2019-01-10 Completed [facility]it y of Vaccine Quad ID 00:00:00 [facility] ical 18-64 YRS Branch Influenza Virus 2019-01-10 Completed [facility]it y of Vaccine Quad ID 00:00:00 [facility] ical 18-64 YRS Branch Influenza Virus 2019-01-10 [...] y of Vaccine Quad ID 00:00:00 [facility] ical 18-64 YRS Branch Influenza Virus 2019-01-10 Completed [facility]it y of Vaccine Quad ID 00:00:00 [place] [facility] 18-64 Y[facility] Influenza Virus 2019-01-10 Completed [facility]it y of Vaccine Quad ID 00:00:00 [facility] ical 18-64 YRS Branch Influenza Virus 2019-01-10 Completed [facility] y of Vaccine Quad ID 00:00:00 [place] [facility] 18-64 Y[facility] Influenza Virus 2019-01-10 Completed [facility] of Vaccine Quad ID 00:00:00 [place] [facility] 18-64 Y[facility] Influenza Virus 2019-01-10 Completed [facility] of Vaccine Quad ID 00:00:00 [place] [facility] 18-64 Y[facility] Influenza Virus 2019-01-10 Completed [facility]it y of Vaccine Quad ID 00:00:00 [facility] ical 18-64 YRS Branch Influenza Virus 2019-01-10 Completed [facility]it y of Vaccine Quad ID 00:00:00 [facility] ical 18-64 YRS Branch Influenza Virus 2019-01-10 Completed [facility]it y of Vaccine Quad ID 00:00:00 [facility] ical 18-64 YRS Branch Influenza Virus 2019-01-10 Completed [facility]it y of Vaccine Quad ID 00:00:00 [facility] ical 18-64 YRS Branch Influenza Virus 2019-01-10 Completed [facility]it y of Vaccine Quad ID 00:00:00 [facility] ical 18-64 YRS Branch Influenza Virus 2019-01-10 Completed [facility]it y of Vaccine Quad ID 00:00:00 [facility] ical 18-64 YRS Branch Influenza Virus 2019-01-10 Completed [facility]it y of Vaccine Quad ID 00:00:00 [facility] ical 18-64 YRS Branch Influenza Virus 2019-01-10 Completed [facility]it y of Vaccine Quad ID 00:00:00 [facility] ical 18-64 YRS Branch Influenza Virus 2019-01-10 Completed [facility] y of Vaccine Quad ID 00:00:00 [place] [facility] 18-64 Y[facility] Influenza Virus 2019-01-10 Completed [facility]it y of Vaccine Quad ID 00:00:00 [facility] ical 18-64 YRS Branch Influenza Virus 2019-01-10 Completed [facility] y of Vaccine Quad ID 00:00:00 [place] [facility] 18-64 Y[facility] Influenza Virus 2019-01-10 Completed [facility]it y of Vaccine Quad ID 00:00:00 [facility] ical 18-64 YRS Branch Influenza Virus 2019-01-10 Completed [facility]it y of Vaccine Quad ID 00:00:00 [facility] ical 18-64 YRS Branch Influenza Virus 2019-01-10 Completed [facility] y of Vaccine Quad ID 00:00:00 [place] [facility] 18-64 Y[facility] Influenza Virus 2019-01-10 Completed [facility] of Vaccine Quad ID 00:00:00 [facility] 18-64 Y[facility] Influenza Virus 2019-01-10 Completed [facility] of Vaccine Quad ID 00:00:00 [facility] 18-64 Y[facility] Influenza Virus 2019-01-10 Completed [facility]it y of Vaccine Quad ID 00:00:00 [facility] ical 18-64 YRS Branch Tdap 2012-11-02 Completed University of 00:00:00 [facility] TDAP 2012-11-02 Completed University of 00:00:00 [facility] TDAP 2012-11-02 Completed University of 00:00:00 [facility] Tdap 2012-11-02 Completed University of 00:00:00 [facility] TDAP 2012-11-02 Completed University of 00:00:00 [facility] TDAP 2012-11-02 Completed University of 00:00:00 [facility] TDAP 2012-11-02 Completed [facility] of 00:00:00 [facility] TDAP 2012-11-02 Completed University of 00:00:00 [facility] Tdap 2012-11-02 Completed University of 00:00:00 [facility] TDAP 2012-11-02 Completed University of 00:00:00 [facility] TDAP 2012-11-02 Completed University of 00:00:00 [facility] TDAP 2012-11-02 Completed University of 00:00:00 [facility] TDAP 2012-11-02 Completed University of 00:00:00 [facility] Tdap 2012-11-02 Completed University of 00:00:00 [facility] TDAP 2012-11-02 Completed University of 00:00:00 [facility] TDAP 2012-11-02 Completed University of 00:00:00 [facility] TDAP 2012-11-02 Completed University of 00:00:00 [facility] TDAP 2012-11-02 Completed University of 00:00:00 [facility] TDAP 2012-11-02 Completed University of 00:00:00 [facility] TDAP 2012-11-02 Completed [facility] of 00:00:00 [facility] Tdap 2012-11-02 Completed [facility] of 00:00:00 [facility] Tdap 2012-11-02 Completed [facility] of 00:00:00 [facility] Tdap 2012-11-02 Completed [facility] of 00:00:00 [facility] TDAP 2012-11-02 Completed [facility] of 00:00:00 [facility] TDAP 2012-11-02 Completed [facility] of 00:00:00 [facility] TDAP 2012-11-02 Completed [facility] of 00:00:00 [facility] TDAP 2012-11-02 Completed [facility] of 00:00:00 [facility] TDAP 2012-11-02 Completed [facility] of 00:00:00 [facility] TDAP 2012-11-02 Completed [facility] of 00:00:00 [facility] TDAP 2012-11-02 Completed [facility] 00:00:00 [facility] TDAP 2012-11-02 Completed [facility] of 00:00:00 [facility] TDAP 2012-11-02 Completed [facility] of 00:00:00 [facility] TDAP 2012-11-02 Completed [facility] of 00:00:00 [facility] TDAP 2012-11-02 Completed [facility] of 00:00:00 [facility] TDAP 2012-11-02 Completed [facility] of 00:00:00 [facility] TDAP 2012-11-02 Completed [facility] of 00:00:00 [facility] TDAP 2012-11-02 Completed [facility] of 00:00:00 [facility] TDAP 2012-11-02 Completed [facility] of 00:00:00 [facility] TDAP 2012-11-02 Completed [facility] of 00:00:00 [facility] TDAP 2012-11-02 Completed [facility] 00:00:00 [facility] TDAP 2012-11-02 Completed [facility] 00:00:00 [facility] TDAP 2012-11-02 Completed [facility] 00:00:00 [facility] TDAP 2012-11-02 Completed [facility] 00:00:00 [facility] TDAP 2012-11-02 Completed [facility] 00:00:00 [facility] TDAP 2012-11-02 Completed [facility] of 00:00:00 [facility] TDAP 2012-11-02 Completed [facility] 00:00:00 [facility] TDAP 2012-11-02 Completed [facility] 00:00:00 [facility] TDAP 2012-11-02 Completed [facility] 00:00:00 [facility] TDAP 2012-11-02 Completed [facility] 00:00:00 [facility] TDAP 2012-11-02 Completed [facility] 00:00:00 [facility] TDAP 2012-11-02 Completed [facility] of 00:00:00 [facility] Tdap 2012-11-02 Completed [facility] of 00:00:00 [facility] TDAP 2012-11-02 Completed [facility] 00:00:00 [facility] TDAP 2012-11-02 Completed [facility] 00:00:00 [facility] TDAP 2012-11-02 Completed [facility] 00:00:00 [facility] TDAP 2012-11-02 Completed [facility] of 00:00:00 [facility] Tdap 2012-11-02 Completed [facility] of 00:00:00 [facility] TDAP 2012-11-02 Completed [facility] 00:00:00 [facility] TDAP 2012-11-02 Completed [facility] of 00:00:00 [facility] TDAP 2012-11-02 Completed [facility] of 00:00:00 [facility] Tdap 2012-11-02 Completed [facility] of 00:00:00 [facility] TDAP 2012-11-02 Completed [facility] of 00:00:00 [facility] TDAP 2012-11-02 Completed University of 00:00:00 [facility] Vital Signs Vital Name Observation Time Observation Value Comments Source HEIGHT 2020-11-04 172.7 cm 21:44:00 WEIGHT 2020-11-04 95.709 kg 21:44:00 Systolic blood 2022-10-27 130 mm[Hg] University of pressure 15:11:00 [facility] Diastolic blood 2022-10-27 80 mm[Hg] University o f pressure 15:11:00 [facility] Heart rate 2022-10-27 84 /min University of 14:55:00 [facility] Body weight 2022-10-27 93.486 kg University of 14:42:00 [facility] BMI 2022-10-27 29.57 kg/m2 University of 14:42:00 [facility] Systolic blood 2022-10-15 152 mm[Hg] University of pressure 18:04:00 [facility] Diastolic blood 2022-10-15 90 mm[Hg] University o f pressure 18:04:00 [facility] Heart rate 2022-10-15 67 /min University of 18:03:00 [facility] Body temperature 2022-10-15 36.72 [place] University of 18:03:00 [facility] Branch Body height 2022-10-15 177.8 cm University of 18:03:00 [facility] Body weight 2022-10-15 93.441 kg University of 18:03:00 [facility] BMI 2022-10-15 29.56 kg/m2 University of 18:03:00 [facility] Oxygen saturation 2022-10-15 99 /min University of in Arterial blood 18:03:00 [place] [facility] Pulse oximetry [facility] Systolic blood 2022-02-01 139 mm[Hg] University of pressure 16:26:00 [facility] Diastolic blood 2022-02-01 82 mm[Hg] University o f pressure 16:26:00 [facility] Heart rate 2022-02-01 71 /min University of 16:25:00 [facility] Body height 2022-02-01 177.8 cm University of 16:25:00 [facility] Body weight 2022-02-01 95.255 kg University of 16:25:00 [facility] BMI 2022-02-01 30.13 kg/m2 University of 16:25:00 [facility] Oxygen saturation 2022-02-01 98 /min University of in Arterial blood 16:25:00 [facility] Pulse oximetry [facility] Systolic blood 2022-01-22 148 mm[Hg] University of pressure 14:45:00 [facility] Diastolic blood 2022-01-22 83 mm[Hg] University o f pressure 14:45:00 [facility] Heart rate 2022-01-22 85 /min University of 14:44:00 [facility] Body temperature 2022-01-22 36.56 [place] University of 14:44:00 [facility] Branch Body height 2022-01-22 172.7 cm University of 14:44:00 [facility] Body weight 2022-01-22 95.255 kg University of 14:44:00 [facility] BMI 2022-01-22 31.93 kg/m2 University of 14:44:00 [facility] Oxygen saturation 2022-01-22 98 /min University of in Arterial blood 14:44:00 [facility] Pulse oxim[facility] HEIGHT 2020-11-04 172.7 cm 21:44:00 WEIGHT 2020-11-04 95.709 kg 21:44:00 Systolic blood 2020-09-02 143 mm[Hg] University of pressure 15:15:00 [facility] Diastolic blood 2020-09-02 90 mm[Hg] University o f pressure 15:15:00 [facility] Heart rate 2020-09-02 65 /min University of 15:15:00 [facility] Body height 2020-09-02 175.3 cm University of 15:12:00 [facility] Body weight 2020-09-02 98.431 kg University of 15:12:00 [facility] BMI 2020-09-02 32.05 kg/m2 University of 15:12:00 [facility] Systolic blood 2020-09-02 143 mm[Hg] University of pressure 15:15:00 [facility] Diastolic blood 2020-09-02 90 mm[Hg] University o f pressure 15:15:00 [facility] Heart rate 2020-09-02 65 /min University of 15:15:00 [facility] Body height 2020-09-02 175.3 cm University of 15:12:00 [facility] Body weight 2020-09-02 98.431 kg University of 15:12:00 [facility] BMI 2020-09-02 32.05 kg/m2 University of 15:12:00 [facility] Systolic blood 2020-05-09 145 mm[Hg] University of pressure 15:33:00 [facility] Diastolic blood 2020-05-09 99 mm[Hg] University o f pressure 15:33:00 [facility] Heart rate 2020-05-09 73 /min University of 15:04:00 [facility] Body temperature 2020-05-09 36 [place] University of 15:04:00 [facility] Body height 2020-05-09 175.3 cm University of 15:04:00 [facility] Body weight 2020-05-09 102.967 kg University of 15:04:00 [facility] BMI 2020-05-09 33.52 kg/m2 University of 15:04:00 [facility] Oxygen saturation 2020-05-09 99 /min University of in Arterial blood 15:04:00 [facility] by Pulse oximetry [place] Systolic blood 2020-03-03 143 mm[Hg] patient has not University of pressure 16:38:00 taken his [facility] medications today Branch Diastolic blood 2020-03-03 93 mm[Hg] patient has not Universit y of pressure 16:38:00 taken his [facility] medications today Branch Heart rate 2020-03-03 98 /min University of 16:38:00 [facility] Body temperature 2020-03-03 36.61 [place] University of 16:38:00 [facility] Body height 2020-03-03 175.3 cm University of 16:38:00 [facility] Body weight 2020-03-03 102.059 kg University of 16:38:00 [facility] BMI 2020-03-03 33.23 kg/m2 University of 16:38:00 [facility] Systolic blood 2018-10-30 155 mm[Hg] University of pressure 14:14:00 [facility] Diastolic blood 2018-10-30 98 mm[Hg] University o f pressure 14:14:00 [facility] Heart rate 2018-10-30 63 /min University of 14:14:00 [facility] Body temperature 2018-10-30 37.06 [place] University of 14:14:00 [facility] Respiratory rate 2018-10-30 16 /min University of 14:14:00 [facility] Body height 2018-10-30 175.3 cm University of 14:14:00 [facility] Body weight 2018-10-30 103.42 kg University of 14:14:00 [facility] BMI 2018-10-30 33.67 kg/m2 University of 14:14:00 [facility] Procedures Procedure Date / Time Performing Clinician Source Performed [facility] PATIENT FINANCIAL 2022-10-27 14:39:54 Doctor Unassigned, Un [facility] POLICY [facility] URINALYSIS 2022-10-15 18:47:00 [facility] [place] [facility] PROSTATIC SPECIFIC 2022-10-15 18:45:[address] [facility] ANTIGEN SCREEN [facility] Branch THYROID STIMULATING 2022-10-15 18:45:00 Rosaura Castillo [facility] HORMONE [facility] COMP. METABOLIC PANEL 2022-10-15 18:45:00 Rosaura Castillo [facility] ([id number]) Medical Branch LIPID PANEL ([id number])(TOTAL 2022-10-15 18:45:00 Rosaura Castillo [facility] CHOLESTEROL, Medical Branch TRIGLYCERIDES, HDL) CBC WITH DIFF 2022-10-15 18:45:00 Rosaura Castillo [facility] GLYCOSYLATED HEMOGLOBIN 2022-10-15 18:45:00 Rosaura Castillo [facility] (A1C) Medical Branch CBC WITH DIFF 2022-02-01 17:04:00 Clive [facility] FERRITIN SERUM 2022-02-01 17:04:00 Clive [facility] COMP. METABOLIC PANEL 2022-02-01 17:04:00 Clive [facility] ([id number]) Medical [place] LIPID PANEL ([id number])(TOTAL 2022-02-01 17:04:00 Darby Nielsen [facility] CHOLESTEROL, [facility] TRIGLYCERIDES, HDL) IRON PANEL 2022-02-01 17:04:00 Clive [facility] GLYCOSYLATED HEMOGLOBIN 2022-02-01 17:04:00 Darby Nielsen [facility] ([facility]) [facility] SARS-COV-2 COVID-19 2022-02-01 16:41:[address] [facility] MAY-SUCROSE VACCINE 12 [facility] YRS+, BIVALENT 0.3ML, IM, (PFIZER PADILLA TOP BOOSTER) PNEUMOCOCCAL 20 CONJUGATE 2022-01-22 15:08:02 Darby Nielsen [facility] (PREVNAR 20) [facility] ASSIGNMENT OF BENEFITS 2022-01-22 14:11:57 Doctor Unassigned, [facility] [facility] SARS-COV-2 COVID-19 2021-01-30 14:05:55 Doctor Denise, [facility] VACCINE,0.3ML,IM (PFIZER) [facility] VACCINATIONS - CONSENTS, 2020-12-15 05:01:00 Doctor Walker, [facility] ELIGIBILITY, HISTORY [facility] SCANNED LAB RESULTS 2020-09-10 05:01:00 Doctor Walker [facility] [place] PHYSICIAN CERTIFICATION 2020-05-16 06:01:00 Doctor Denise [facility] STATEMENT [place] [facility] URINALYSIS 2020-03-03 18:33:00 [facility] PROSTATIC SPECIFIC 2020-03-03 17:14:00 Elier Benitez [facility] ANTIGEN SCREEN [facility] THYROID STIMULATING 2020-03-03 17:14:00 Elier Benitez [facility] HORMONE [facility] Branch COMP. METABOLIC PANEL 2020-03-03 17:14:00 Elier Benitez [facility] ([id number]) [facility] LIPID PANEL ([id number])(TOTAL 2020-03-03 17:14:00 Elier Benitez [facility] CHOLESTEROL, [facility] TRIGLYCERIDES, HDL) CBC WITHOUT DIFF 2020-03-03 17:14:00 Elier Benitez [facility] GLYCOSYLATED HEMOGLOBIN 2020-03-03 17:14:00 Elier Benitez [facility] (A1C) [facility] VITAMIN D, 25-OH 2020-03-03 17:14:00 Elier Benitez [facility] PNEUMOCOCCAL VACCINE, 2020-03-03 16:57:58 Elier Benitez [facility] 23-VALENT (PNEUMOVAX) Medical anch VACCINATIONS - CONSENTS, 2019-12-27 05:01:00 Doctor Denise, [facility] ELIGIBILITY, HISTORY [facility] MEDICATION HISTORY 2018-12-06 05:01:00 Doctor Denise, [facility] RECONCILIATION FORM [facility] ch AUTHORIZATION FOR RELEASE 2018-09-29 05:01:00 Doctor Denise, [facility] OF PHI [facility] PATIENT QUESTIONNAIRE 2015-07-10 05:01:00 Doctor Denise, [facility] [place] PATIENT QUESTIONNAIRE 2015-06-19 05:01:00 Doctor Denise, [facility] Plan of Care Planned Activity Planned Date Details Comments Source Future Scheduled 2022-12-03 Influenza Vaccine (#1) [facility] 00:00:00 [code = Influenza Medical Ce nter Vaccine (#1)] Future Scheduled 2022-12-03 Influenza Vaccine (#1) [facility] 00:00:00 [code = Influenza Medical Ce nter Vaccine (#1)] Future Scheduled 2022-11-02 DTAP/TDAP/TD VACCINES [facility] 00:[facility]00 (2 - Td or Tdap) [code Medic al Center = DTAP/TDAP/TD VACCINES (2 - Td or Tdap)] Future Scheduled 2022-11-02 DTAP/TDAP/TD VACCINES [facility] 00:00:00 (2 - Td or Tdap) [code Medic al Center = DTAP/TDAP/TD VACCINES (2 - Td or Tdap)] Future Scheduled 2022-04-[address] [facility] 00:00:00 (12+) [code = Medical Center DEPRESSION SCREENING (12+)] Future Scheduled 2022-04-04 FALLS RISK SCREENING [facility] 00:00:00 [code = FALLS RISK Medical C enter SCREENING] Future Scheduled 2022-04-[address] [facility] 00:00:00 (12+) [code = Medical Center DEPRESSION SCREENING (12+)] Future Scheduled 2022-04-04 FALLS RISK SCREENING [facility] 00:00:00 [code = FALLS RISK Medical C enter SCREENING] Future Scheduled 2021-11-[address] [facility] 00:00:00 Counseling and Medical Cente r Screening (12+) [code = Tobacco Cessation Counseling and Screening (12+)] Future Scheduled 2021-11-[address] [facility] 00:00:00 Counseling and Medical Cente r Screening (12+) [code = Tobacco Cessation Counseling and Screening (12+)] Future Scheduled 2021-04-[address] [facility] 00:[facility]:00 WELLNESS (YEAR 2 or Medical Center FIRST YEAR if no IPPE) [code = MEDICARE ANNUAL WELLNESS (YEAR 2 or FIRST YEAR if no IPPE)] Future Scheduled 2021-04-[address] [facility] 00:00:00 WELLNESS (YEAR 2 or Medical Center FIRST YEAR if no IPPE) [code = MEDICARE ANNUAL WELLNESS (YEAR 2 or FIRST YEAR if no IPPE)] Future Scheduled 2020-08-16 COVID-19 VACCINE (3 - [facility] 00:[facility]:00 Booster for Pfizer Medical C enter series) [code = COVID-19 VACCINE (3 - Booster for Pfizer series)] Future Scheduled 2020-08-16 COVID-19 VACCINE (3 - [facility] 00:[facility]:00 Booster for Pfizer Medical C enter series) [code = COVID-19 VACCINE (3 - Booster for Pfizer series)] Future Scheduled 2004 SHINGLES VACCINES ([address] [facility] 00:00:00 2) [code = SHINGLES Medical Center VACCINES (1 of 2)] Future Scheduled 2004 SHINGLES VACCINES ([address] [facility] 00:00:00 2) [code = SHINGLES Medical Center VACCINES (1 of 2)] Future Scheduled 1972 HEPATITIS C SCREENING [facility] 00:00:00 [code = HEPATITIS C Medical Center SCREENING] Future Scheduled 1972 HEPATITIS C SCREENING [facility] 00:00:00 [code = HEPATITIS C Medical Center SCREENING] Future Scheduled 1954 Screening for malignant [facility] 00:00:00 neoplasm of colon Medical Ce nter (procedure) [code = 408515118] Future Scheduled 1954 Screening for malignant [facility] 00:00:00 neoplasm of colon Medical Ce nter (procedure) [code = 251853578] Future Scheduled 1954 Sigmoidoscopy [code = [facility] Sigmoidoscopy] Medical Cente r Future Scheduled 1954 CT Colonography (combo) [facility] 00:00:00 [code = CT Colonography [facility] (combo)] Future Scheduled 1954 Screening for malignant [facility] 00:00:00 neoplasm of colon Medical Ce nter (procedure) [code = 581624616] Future Scheduled 1954 Screening for malignant [facility] 00:00:00 neoplasm of colon Medical Ce nter (procedure) [code = 506425689] Future Scheduled 1954 CT Colonography (combo) [facility] 00:00:00 [code = CT Colonography [facility] (combo)] Future Scheduled 1954 Screening for malignant [facility] 00:00:00 neoplasm of colon Medical Ce nter (procedure) [code = 668271410] Future Scheduled 1954 Screening for malignant [facility] 00:00:00 neoplasm of colon Medical Ce nter (procedure) [code = 400002364] Future Scheduled 1954 Screening for malignant [facility] 00:00:00 neoplasm of colon Medical Ce nter (procedure) [code = 978786351] Future Scheduled 1954 Screening for malignant [facility] 00:00:00 neoplasm of colon Medical Ce nter (procedure) [code = 973691400] Future Scheduled 1954 Sigmoidoscopy [code = [facility] Sigmoidoscopy] Medical Cente r Encounters Start End Encounter Admission Attending Care Care Encounter Source Date/Time Date/Time Type Type Clinicians Facility Department ID 2021-02-02 [facility] [id number] 16:03:40 [facility] 2020-11-04 Inpatient UR ONEAL, SLE General Med [id number] SLE 21:10:00 MICHAEL 2022-11-05 2022-11-05 Outpatient Mirian CONTE [facility] [id number] Univers 11:00:00 11:00:00 MOHAMMED brielle o f [facility] 2022-11-04 2022-11-04 Outpatient DARBY PICHARDO [facility] [id number] Univers 15:00:00 15:00:00 DARBY NIELSEN [facility] 2022-11-03 2022-11-03 Telephone [facility] [id number] Univers 00:00:00 00:00:00 Rosaura Everett HEALTH 350.1.13.10 i ty of [place] 4.2.7.2.686 Zak as LIGIA?BLEA [phone] [address] MEDICAL OFFICE BUILDING 2022-10-27 2022-10-27 Physical Therapist Center Manager Lab, Ang - Db [facility] 1.2.840.1 [id number] Univers 10:15:00 10:30:00 Visit Rosaura Castillo HEALTH 350.1.13.10 ity of [place] 4.2.7.2.686 Zak as LIGIA?BLEA [phone] [address] MEDICAL OFFICE BUILDING 2022-10-27 2022-10-27 [facility] [id number] Univers 09:30:00 10:10:28 ROSAURA ity [facility] 2022-10-27 2022-10-27 Office [facility] 1.2.840.114 [id number] Univers 09:30:00 10:10:28 Visit Rosaura Everett HEALTH 350.1.13.10 i ty of [facility] 4.2.7.2.686 Zak as LIGIA?BLEA [phone] [address] OFFICE [facility] 2022-10-27 2022-10-27 Orders Doctor NAVEEN 1.2.840.114 [id number] Univers 00:00:00 00:00:00 Only Unassigned, ALETHEA 350.1.13.10 ity of [place] [facility] 4.2.7.2.686 Zak as [phone] [address] 2022-10-16 2022-10-16 Telephone [facility] [id number] Univers 00:00:00 00:00:00 Rosaura A HEALTH 350.1.13.10 i ty of [place] 4.2.7.2.686 Zak as LIGIA?BLEA [phone] [address] OFFICE [facility] 2022-10-15 2022-10-15 Physical Therapist Center Manager Lab, Ang - Db [facility] 1.2.840.1 [id number] Univers 13:30:00 15:04:34 Visit Rosaura Castillo HEALTH 350.1.13.10 ity of [facility] 4.2.7.2.686 Zak as LIGIA?BLEA [phone] [address] OFFICE [facility] 2022-10-15 2022-10-15 Outpatient R [facility] [id number] Univers 12:30:00 13:35:55 ROSAURA itariadna [facility] 2022-10-15 2022-10-15 Office [facility] 1.2.840.114 [id number] Univers 12:30:00 13:35:55 Visit Rosaura A HEALTH 350.1.13.10 i ty of [place] 4.2.7.2.686 Zak as LIGIA?BLEA [phone] [facility] CHARLES 044 [facility] OFFICE [facility] 2022-10-11 2022-10-11 Telephone [facility] 1.2.511.002 [id number] Univers 00:00:00 00:00:00 Formerly [facility] 350.1.13.10 ity of [place] 4.2.7.2.686 Zak as LIGIA?BLEA [id number] [address] OFFICE [facility] 2022-10-08 2022-10-08 Emergency EM Tsau, HCACL ALEXANDER [id number] [facility] 11:15:00 13:00:00 Taiwo 40 [facility] 2022-03-17 2022-03-17 Outpatient R FARHAT [facility] [id number] Univers 10:00:00 10:00:00 KATHE hannah [facility] 2022-02-16 2022-02-16 Telephone [facility] 1.2.730.321 [id number] Univers 00:00:00 00:00:00 Formerly [facility] 350.1.13.10 ity of [place] 4.2.7.2.686 Zak as LIGIA?BLEA [phone] [address] 2022-02-01 2022-02-01 Physical Therapist Center Manager Lab, Ang - Db [facility] 1.2.840.1 14 [id number] Univers 12:00:00 12:14:39 Visit [facility] 350.1.13.10 ity of [place] 4.2.7.2.686 Zak as LIGIA?BLEA [phone] [facility] 353 [facility] OFFICE [facility] 2022-02-01 2022-02-01 Outpatient R CLIVE [facility] [id number] Univers 11:20:00 11:59:15 [facility] 2022-02-01 2022-02-01 Office [facility] 1.2.840.114 [id number] Univers 11:20:00 11:59:15 Visit [facility] 350.1.13.10 ity of [place] 4.2.7.2.686 Zak as LIGIA?BLEA [id number] [address] MEDICAL OFFICE [facility] 2022-01-22 2022-01-22 Outpatient [facility] [id number] Univers 09:40:00 10:23:36 DARBY ity [facility] 2022-01-22 2022-01-22 Office [facility] 1.2.840.114 [id number] Univers 09:40:00 10:23:36 Visit [facility] 350.1.13.10 ity of [place] 4.2.7.2.686 Zak as LIGIA?BLEA [phone] [address] OFFICE [facility] 2022-01-22 2022-01-22 Orders Doctor NAVEEN 1.2.840.114 [id number] Univers 00:00:00 00:00:00 Only Unassigned, ALETHEA 350.1.13.10 ity of [place] [facility] 4.2.7.2.686 Zak as [phone] [address] 2022-01-22 2022-01-22 Letter [facility] 1.2.840.114 [id number] Univers 00:00:00 00:00:00 (Out) [facility]ly [facility] 350.1.13.10 ity of [place] 4.2.7.2.686 Zak as LIGIA?BLEA [phone] [address] OFFICE [facility] 2022-01-19 2022-01-19 Telephone Farhat [facility] 1.2.322.833 [id number] Univers 00:00:00 00:00:00 Kathe HEALTH 350.1.13.10 it y of [place] 4.2.7.2.686 Zak as LIGIA?BLEA [phone] [address] OFFICE [facility] 2021-08-26 2021-08-26 CAV Katelyn 2.16.840. 2.16.840.1. CLAC XREGFH Devoted 15:30:00 16:30:00 [place] 1.373893. 621856.4.6. [facility] 4.6.14981 [id number] 2021-08-24 2021-08-24 Outpatient Tumelson_A [facility] [id number] Devoted 06:44:00 06:44:00 0523 Medica l Group 2021-05-11 2021-05-11 Refmariaa Benitez [facility] 1.2.840.114 [id number] Univers 00:00:00 00:00:00 Wondiful A HEALTH 350.1.13.10 ity of [place] 4.2.7.2.686 Zak as PROFESSIO [phone] Ny dical NAL 044 [facility] 2021-02-18 2021-02-18 CAV Millie 2.16.840. 2.16.840.1. CLAC [id number] [facility] 16:00:00 17:00:00 Lyle 1.264796. 018906.4.6. [facility] Medical [id number] [id number] 2021-02-05 2021-02-05 Outpatient Adams_R [facility] [id number] Devoted 08:01:00 08:01:00 1104 Medica l Group 2021-01-30 2021-01-30 Outpatient R KAMILLA [facility] [id number] Univers 10:10:00 09:04:47 BILL hannah [facility] 2021-01-30 2021-01-30 Imm/Inj Nurse, Adc Pob Immunization [facility] 1.2.840.114 [id number] Univers 09:03:10 09:04:47 Visit Bill Kohli 350.1.13 .10 ity [facility] 4.2.7.2.[place] PROFESS[place] [phone] Ny dical NAL 421 [facility] 2021-01-09 2021-01-09 Outpatient [facility] [id number] Devoted 08:00:00 08:00:00 1008 Medica l Group 2020-12-15 2020-12-15 Orders Doctor HODGE 1.2.840.114 [id number] Univers 00:00:00 00:00:00 Only Unassigned, ALETHEA 350.1.13.10 [facility] 4.2.7.2.686 Azk as [phone] [address] 2020-12-04 2020-12-04 Outpatient R CHELSEA [facility] [id number] Univers 10:30:00 10:30:00 WONDIFUL ity o f [facility] 2020-11-04 2020-11-04 Telephone Chelsea [facility] 1.2.840.114 [id number] Univers 00:00:00 00:00:00 Wondiful A Health 350.1.13.10 ity of [place] 4.2.7.2.686 Zak as Professio [phone] [address] Office Building One 2020-11-04 2020-11-04 [place] [facility] 1.2.840.114 [id number] 00:00:00 00:00:00 Wondiful A Health 350.1.13.10 [place] 4.2.7.2.686 Professio [phone] [place] [address] Office Building One 2020-10-30 2020-10-30 [place] [id number] Devoted 08:00:00 08:00:00 0729 Medica l Group 2020-09-26 2020-09-26 [place] [facility] 1.2.840.114 [id number] Univers 00:00:00 00:00:00 Wondiful A Health 350.1.13.10 ity of [place] 4.2.7.2.686 Zak as Professio [phone] [address] Office Building One 2020-09-26 2020-09-26 [place] [facility] 1.2.840.114 [id number] 00:00:00 00:00:00 Wondiful A Health 350.1.13.10 [place] 4.2.7.2.686 Professio [phone] [place] [address] Office Building One 2020-09-15 2020-09-15 [facility] Chelsea [facility] 1.2.840.114 [id number] Univers 00:00:00 00:00:00 Management Wondiful A Health 350.1.13.10 ity of [place] 4.2.7.2.686 Zak as Professio [phone] [facility] frank [address] [place] [address] One 2020-09-15 2020-09-15 Case Chelsea [facility] 1.2.840.114 [id number] 00:00:00 00:00:00 Management Wondiful A Health 350.1.13.10 [place] 4.2.7.2.686 Professio [phone] [address] 2020-09-10 2020-09-10 Orders Doctor NAVEEN 1.2.840.114 [id number] [facility] 00:00:00 00:00:00 Only Unassigned, ALETHEA 350.1.13.10 ity of [place] [facility] 4.2.7.2.686 Zak as [phone] [address] 2020-09-10 2020-09-10 Orders Doctor NAVEEN 1.2.840.114 [id number] 00:00:00 00:00:00 Only Unassigned, ALETHEA 350.1.13.10 [place] [facility] [id number] [facility] 2020-09-02 2020-09-02 Physical Therapist Center Manager Lab, Adc Fam Pob I [facility] 1.2. 840.114 [id number] [facility] 11:08:48 11:28:48 Visit Elier Benitez Health 350.1.13.1 0 ity of [place] 4.2.7.2.686 Zak as Professio [phone] Ny ciara nal [address] [place] [address] One 2020-09-02 2020-09-02 Office Chelsea [facility] 1.2.840.114 [id number] [facility] 09:24:19 11:06:36 Visit Shantellful A Health 350.1.13.10 ity of [place] 4.2.7.2.686 Zak as Professio [phone] Ny dicky nal [address] [place] [address] Office [facility] One 2020-09-02 2020-09-02 Office Chelsea [facility] 1.2.840.114 [id number] 09:24:19 11:06:36 Visit Wondiful A Health 350.1.13.10 [place] 4.2.7.2.686 Professio [phone] [place] [address] Office Building One 2020-09-02 2020-09-02 Outpatient R CHELSEA, [facility] [id number] Univers 10:30:00 10:30:00 WONDIFUL ity o f [facility] 2020-06-21 2020-06-21 Outpatient [facility] [id number] Univers 08:25:00 08:25:00 ity of [facility] 2020-06-20 2020-06-20 Outpatient R PAT, [facility] [id number] Univers 11:00:00 11:00:00 TEJO ity of [facility] 2020-05-31 2020-05-31 Outpatient R LENCHO, [facility] [id number] Univers 09:40:00 09:40:00 CHINO ity [facility] 2020-05-16 2020-05-16 Orders Doctor NAVEEN 1.2.840.114 [id number] Univers 00:00:00 00:00:00 Only Unassigned, ALETHEA 350.1.13.10 ity of [place] [facility] 4.2.7.2.686 Zak as [phone] [address] 2020-05-09 2020-05-09 Urgent Provider, [facility] Urgent Care [facility] 1.2.840.114 [id number] Univers 08:37:04 09:28:57 Viridiana Hollingsworth [facility] 350.1.13.10 ity of [place] 4.2.7.2.686 Zak as Professaaron [phone] Ny dical [address] Office Building One 2020-05-09 2020-05-09 Outpatient Mirian TYLER, [facility] [id number] Univers 09:20:00 09:20:00 VIRIDIANA ity [facility] 2020-03-24 2020-03-24 Outpatient R CHELSEA, [facility] [id number] Univers 09:00:00 09:00:00 WONDIFUL ity o f [facility] 2020-03-12 2020-03-12 [facility] PAT Uriostegui 1.2.840.114 [id number] Univers 13:52:00 23:59:00 Encounter Abundio Govea 350.1.13.10 ity of BUILDING 4.2.7.2.686 Zak as [phone] [address] 2020-03-12 2020-03-12 Outpatient R GILA [facility] ACO [id number] Univers 00:00:00 00:00:00 ABUNDIO ity of [facility] 2020-03-12 2020-03-12 Case [facility] 1.2.840.114 [id number] Univers 00:00:00 00:00:00 Management Wondiful A Health 350.1.13.10 ity of [place] 4.2.7.2.686 Zak as Professio [phone] [address] Office [facility] One 2020-03-12 2020-03-12 Telephone [facility] 1.2.840.114 [id number] Univers 00:00:00 00:00:00 Wondiful A Health 350.1.13.10 ity of [place] 4.2.7.2.686 Zak as Professio [phone] [address] Office [facility] One 2020-03-11 2020-03-11 Telephone [facility] 1.2.840.114 [id number] Univers 00:00:00 00:00:00 Wondiful A Health 350.1.13.10 ity of [place] 4.2.7.2.686 Zak as Professio [phone] [address] Office [facility] One 2020-03-06 2020-03-06 Telephone [facility] 1.2.840.114 [id number] Univers 00:00:00 00:00:00 Wondiful A Health 350.1.13.10 ity of [place] 4.2.7.2.686 Zak as Professio [phone] [address] Office [facility] One 2020-03-03 2020-03-03 Physical Therapist Center Manager Lab, Adc Fam Pob I [facility] 1.2. 840.114 [id number] Univers 11:02:30 11:20:02 Visit GraftonElier A Health 350.1.13.1 0 ity of [place] 4.2.7.2.686 Zak as Professio [phone] Me dical [address] 2020-03-03 2020-03-03 Office [facility] 1.2.840.114 [id number] Univers 08:29:52 11:15:29 Visit Wondiful A Health 350.1.13.10 ity of [place] 4.2.7.2.686 Zak as Professio [phone] [address] 2020-03-03 2020-03-03 Outpatient R CHELSEA [facility] [id number] Univers 10:45:00 10:45:00 WONDIFUL ity o f [facility] 2020-01-25 2020-01-25 Refill [facility] 1.2.840.114 [id number] Univers 00:00:00 00:00:00 Wondiful A Health 350.1.13.10 ity of [place] 4.2.7.2.686 Zak as Professio [phone] [address] 2020-01-21 2020-01-21 [facility] [id number] Univers 11:00:00 11:00:00 WONDIFUL ity o f [facility] 2020-01-04 2020-01-04 [facility] [id number] Univers 15:45:00 15:45:00 WONDIFUL ity o f [facility] 2020-01-04 2020-01-04 Telemedici [facility] 1.2.840.114 [id number] Univers 07:35:15 07:50:15 ne Visit Wondiful A Health 350.1.13.10 ity of [place] 4.2.7.2.686 Zak as Professio [phone] [address] Office [facility] 2019-12-27 2019-12-27 Orders Doctor NAVEEN 1.2.840.114 [id number] Univers 00:00:00 00:00:00 Only Unassigned, ALETHEA 350.1.13.10 ity of [place] [facility] 4.2.7.2.686 Zak as [phone] [address] 2019-12-25 2019-12-25 Refmariaa [facility] 1.2.840.114 [id number] Univers 00:00:00 00:00:00 Wondiful A [place] 350.1.13.10 ity of [place].7.2.[place] [phone] [address] 2019-12-03 2019-12-03 Refill Chelsea [facility] 1.2.840.114 [id number] Univers 00:00:00 00:00:00 Wondiful A Health 350.1.13.10 ity of [place] 4.2.7.2.686 [place]ak as Professio [phone] [address] One 2019-09-18 2019-09-18 Pre Visit Chelsea [facility] 1.2.840.114 [id number] Univers 00:00:00 00:00:00 Outreach Wondiful A [place] 350.1.13.10 ity of [place] 4.2.7.2.[place] [phone] [address] 2019-08-24 2019-08-24 Telemedici Elma Austin [facility] 1.2.840.114 [id number] Univers 07:46:39 11:08:44 ne Visit Health 350.1.13.10 i ty of [place]2.7.2.[place] [phone] [address] Office [facility] 2019-08-24 2019-08-24 Outpatient R ELMA AUSTIN [facility] [id number] Univers 09:30:00 09:30:00 ity of [facility] 2019-07-10 2019-07-10 Telemedici [place] [facility] 1.2.840.114 [id number] Univers 14:00:09 15:15:53 ne Visit Wondiful A [place] 350.1.13.10 ity of [place] 4.2.7.2.[place] Profess[place] [phone] [address] 2019-07-10 2019-07-10 Outpatient R CHELSEA [facility] [id number] Univers 14:35:00 14:35:00 WONDIFUL ity o f [facility] 2019-07-05 2019-07-05 Outpatient R CHELSEA [facility] [id number] Univers 09:45:00 09:45:00 WONDIFUL ity o f [facility] 2019-07-03 2019-07-03 Refill Chelsea [facility] 1.2.840.114 [id number] Univers 00:00:00 00:00:00 Wondiful A Health 350.1.13.10 ity of [place] 4.2.7.2.686 Zak as Professio [phone] [address] Office Building One 2019-01-26 2019-01-26 Outpatient R ELMA AUSTIN [facility] [id number] Univers 09:30:00 10:31:17 ity of [facility] 2018-12-06 2018-12-06 Orders Doctor NAVEEN 1.2.840.114 [id number] Univers 00:00:00 00:00:00 Only Unassigned, ALETHEA 350.1.13.10 ity of [place] [facility] 4.2.7.2.686 Zak as [phone] [address] 2018-10-30 2018-10-30 Office Mya [facility] 1.2.840.114 [id number] Univers 08:42:33 09:46:36 Visit Viridiana [facility] 350.1.13.10 it y of [place] 4.2.7.2.686 Zak as Professio [phone] [address] Office Building One 2018-09-29 2018-09-29 Orders Doctor HODGE 1.2.840.114 [id number] Univers 00:00:00 00:00:00 Only Unassigned, ALETHEA 350.1.13.10 ity of [place] [facility] 4.2.7.2.686 Zak as [phone] [address] 2015-07-10 2015-07-10 Orders Doctor HODGE 1.2.840.114 [id number] Univers 00:00:00 00:00:00 Only Unassigned, ALETHEA 350.1.13.10 ity of [place] [facility] 4.2.7.2.686 Zak as [phone] [address] 2015-06-19 2015-06-19 Orders Doctor NAVEEN 1.2.840.114 [id number] Univers 00:00:00 00:00:00 Only Unassigned, ALETHEA 350.1.13.10 ity of [facility] 4.2.7.2.686 Zak as [phone] [address] Results Test Description Test Time Test Comments Results Result Comments Source GLYCOSYLATED HEMOGLOBIN (A1C) 2022-10-15 23:50:04 Test Item Value Reference Range Interpretation Comme nts HGB A1C (test code = 4548-4) 5.0 % 4.0-5.7 NICK (test code = NICK) Reference RangesNormal: <5.7%Prediabetes: 5.7 - 6.4%Diabetes: > 6.5% Lab Interpretation (test code = Normal 36697-7) [facility] [id number] 22:37:08 Test Item Value Reference Range Interpretation Comments TSH (test code = 1.95 See_Comment [Automated message] [id number]) The system [employer] generated this result transmitted ref erence range: 0.45 - 4 .70 mIU/L. The refe rence range was not u sed to interpret this result as normal/abnor mal. Lab Interpretation (test Normal code = 03575-4) [facility] [id number] 22:36:47 Test Item Value Reference Range Interpretation Comments PSA (test code = 1.79 ng/mL <=4.00 [id number]) NICK (test code = NICK) Biotin has been reported to cause a negative bias, interpret results relative to patient's use of biotin. Lab Interpretation (test Normal code = 74860-6) [facility] (79781)2022-10-15 22:10:06 Test Item Value Reference Range Interpretation Comments NA (test code = 141 mmol/L 135-145 [id number]) K (test code = 4.7 mmol/L 3.5-5.0 6246496555) CL (test code = 102 mmol/L 98-108 4243483775) CO2 TOTAL (test code = 29 mmol/L 23-31 7477059750) AGAP (test code = 10 2-16 [id number]) BUN (test code = 14 mg/dL 7-23 3410031266) GLUCOSE (test code = 88 mg/dL 70-110 3797924780) CREATININE (test code = 1.08 mg/dL 0.60-1.25 7819833905) TOTAL BILI (test code = 1.0 mg/dL 0.1-1.1 0433782080) CALCIUM (test code = 10.0 mg/dL 8.6-10.6 2003156997) T PROTEIN (test code = 7.9 g/dL 6.3-8.2 3742176370) ALBUMIN (test code = 4.4 g/dL 3.5-5.0 8324241129) ALK PHOS (test code = 78 U/L 34-122 2192647278) ALTv (test code = 42 U/L 5-50 2-6) AST(SGOT) (test code = 41 U/L 13-40 H 1474432272) eGFR (test code = 68.0 mL/min/1.73m2 2857826445) NICK (test code = NICK) Association of Glomerular Filtration Rate (GFR) and [...] tests). Lab Interpretation Abnormal (test code = 70781-4) [facility]13[facility]TOTAL CHOLESTEROL, TRIGLYCERIDES, HDL)2022-10-15 22:10:06 Test Item Value Reference Range Interpretation Comments CHOL (test code = 0710185201) 164 mg/dL 120-200 HDL (test code = 2340253379) 31 mg/dL >=40 L HDLC RATIO (test code = 7522372357) 5.3 <=5.0 H TRIG (test code = 5072093859) 143 mg/dL 30-170 LDL CHOL (test code = 90855-9) 104 mg/dL <=160 VLDL (test code = 5060813171) 29 mg/dL 5-60 Lab Interpretation (test code = Abnormal 02956-8) [facility] [id number] 21:11:32 Test Item Value Reference Range Interpretation Comments WBC (test code = 10.86 See_Comment H [Automated 6690-2) message] The sy stem which generated this result transmitted reference range : 4.20 - 10.70 10*3/?L. The reference range was not used to interpret this result as normal/abnormal . RBC (test code = 6.75 See_Comment H [Automated 739-8) message] The sy stem which generated this result transmitted reference range : 4.26 - 5.52 10*6/?L. The reference range was not used to interpret this result as normal/abnormal . HGB (test code = 14.4 g/dL 12.2-16.4 718-7) HCT (test code = 46.6 % 38.4-49.3 4544-3) MCV (test code = 69.0 fL 81.7-95.6 L 787-2) MCH (test code = 21.3 pg 26.1-32.7 L 785-6) MCHC (test code = 30.9 g/dL 31.2-35.0 L 786-4) RDW-SD (test code = 43.2 fL 38.5-51.6 42724-4) RDW-CV (test code = 19.7 % 12.1-15.4 H 788-0) PLT (test code = 425 See_Comment H [Automated 777-3) message] The sy stem which generated this result transmitted reference range : 150 - 328 10*3/ ?L. The reference r pravin was not used to interpret this result as normal/abnormal . MPV (test code = 10.9 fL 9.8-13.0 11449-7) NRBC/100 WBC (test 0.0 See_Comment [Automat ed code = 1581052072) message] The system which generated this result transmitted reference range : 0.0 - 10.0 /100 WBCs. The refer ence range was not u sed to interpret th is result as normal/abnormal . NRBC x10^3 (test code See_Comment [Auto mated = 4067570905) message] The s ystem which generated this result transmitted reference range : 10*3/?L. The reference range was not used to interpret this result as normal/abnormal . GRAN MAT (NEUT) % 63.4 % (test code = 770-8) IMM GRAN % (test code 0.30 % = 5761595852) LYMPH % (test code = 24.0 % 736-9) MONO % (test code = 9.5 % 5905-5) EOS % (test code = 2.0 % 713-8) BASO % (test code = 0.8 % 706-2) GRAN MAT x10^3(ANC) 6.88 10*3/uL 1.99-6.95 (test code = 3029766975) IMM GRAN x10^3 (test 0.03 10*3/uL 0.00-0.06 code = 2869579042) LYMPH x10^3 (test code 2.61 10*3/uL 1.09-3.23 = 731-0) MONO x10^3 (test code 1.03 10*3/uL 0.36-1.02 H = 742-7) EOS x10^3 (test code = 0.22 10*3/uL 0.06-0.53 711-2) BASO x10^3 (test code 0.09 10*3/uL 0.01-0.09 = 704-7) Lab Interpretation Abnormal (test code = 16283-9) [facility]RAIN W/O [id number] 00:00:00 [facility] JAKE CEDARVILLEName: NAVEEN MOLINA : 1955 Sex: M Name: NAVEEN MOLINA [facility] : 1955 Age/S: 67 / M [address] [place] [address] Unit #: [id number] Loc: [place] [address] Phys: Taiwo Watson MD Acct: [id number] Dis Date: Status: REG ER PHONE #: [phone] Exam Date: 10/08/2022 1141 FAX #: [phone] Reason: facial injury EXAMS: CPT CODE: [id number] CT HEAD/BRAIN W/O CONT 95270 PROCEDURE INFORMATION: Exam: CT Head Without Contrast Exam date and time: 10/08/2022 11:40 AM Age: 67 years old Clinical indication: Injury or trauma; Fall; Blunt trauma (contusions or hematomas); Additional info: Facial injury TECHNIQUE: Imaging protocol: Computed tomography of the head without contrast. Radiation optimization: All CT scans at this facilityuse at least one of these dose optimization techniques: automated exposure control; mA and/or kV adjustment per patient size (includes targeted exams where dose is matched to clinical indication); or iterative reconstruction. REPORTING DATA: Count of CT and Cardiac NM exams in prior 12 months: This patient has received 0 known CTs and 0 known cardiac nuclear medicine studies in the 12 months prior tothe current study. COMPARISON: No relevant prior studies available. FINDINGS: Brain: There are no extra-axial fluid collections. There is significant periventricular and subcortical gliosis of the supratentorial brain with moderate central/cortical atrophy/ventriculomegaly. There are chronic lacunarinfarcts within the jose, bilateral basal ganglia, zuniga radiata and centrum. The orbital globes are intact. The lenses have been resected. There is no acute cortical infarct, parenchymal hemorrhage or intra axial mass. Sellae and para sellae structures are normal for age. There is no tonsillar ectopia. Cerebral ventricles: There is significant ventriculomegaly. Paranasal sinuses: There is a 1 cm mucous retention cyst in the left maxillary sinus. Mastoid air cells: Visualized middle ear cavity, antrum and mastoid air cells are normally aerated. Bones/joints: Unremarkable. No acute fracture. Soft tissues: Unremarkable. IMPRESSION: There are no extra-axial fluid collections. There is significant periventricular and subcortical gliosis of the supratentorial brain with moderate central/cortical atrophy/ventriculomegaly. There are chronic lacunar infarcts within the jose, bilateral basal ganglia, zuniga radiata and centrum. There is no acute cortical infarct, hemorrhage or intra axial mass. PAGE 1 Signed Report (CONTINUED) Name: NAVEEN MOLINA [facility] : 1955 Age/S: 67 / M [address] [place], [place] [address] Unit #: [id number] Loc: [place] [address] Phys: Taiwo Watson MD Acct: [id number] Dis Date: Status: REG ER PHONE #: [phone] Exam Date: 10/08/2022 1141 FAX #: [phone] Reason: facial injury EXAMS: CPT CODE: [id number] CT HEAD/BRAIN W/O CONT 03180 (Continued) at 1215 Reported and signed by: Sravan Phelan M.D. CC: Taiwo Watson MD Technologist:Meredith Knapp RT(R)(CT) CTDI: DLP: Trnscb Date/Time: 10/08/2022 (1215) [id number] Orig Print D/T: S: 10/08/2022 (1216) PAGE 2 Signed Report- CT MAXIFAC W/O CONTRAST 2022-10-08 00:00:00 [facility] JAKE CEDARVILLEName: NAVEEN MOLINA : 1955 Sex: M Name: NAVEEN MOLINA [facility] : 1955 Age/S: 67 / M [address] [place] [address] Bl Unit #: [id number] Loc: [place] [address] Phys: Taiwo Watson MD Acct: [id number] Dis Date: Status: REG ER PHONE #: [phone] Exam Date: 10/08/2022 1141 FAX #: [phone] Reason: facial injury EXAMS: CPT CODE: [id number] CT MAXIFAC W/O CONTRAST 85202 PROCEDURE INFORMATION: Exam: CT Maxillofacial Without Contrast Exam date and time: 10/08/2022 11:40 AM Age: 67 years old Clinical indication: Injury or trauma; Fall; Blunt trauma (contusions or hematomas); Other: Face; Additional info: Facial injury TECHNIQUE: Imaging protocol: Computed tomography of the face without contrast. Radiation optimization: All CTscans at this facility use at least one of these dose optimization techniques: automated exposure control; mA and/or kV adjustment per patient size (includes targeted exams where dose is matched to clinical indication); or iterative reconstruction. REPORTING DATA: Count of CT and Cardiac NM exams in prior 12 months: This patient has received 0 known CTs and 0 known cardiac nuclear medicine studies in the 12 months prior to the current study. COMPARISON: No relevant prior studies available. FINDINGS: Orbital cavities: See "Bones/joints" finding. Bones/joints: There is a subtle fracture of the tip of the nasal bone with perinasal soft tissue swelling. There is no fracture of the nasal spine. The septum is slightly inclined to the right. There is prominence of mucosa of the inferior nasal turbinates and minimal sheri bullosa left middle turbinate. There is no fracture of the orbital fossa. The globes are intact. There is no retrobulbar abnormality. There is no fracture of the maxilla or zygomatic arches. There is no fracture of the mandible or dislocation of the temporomandibular joints. There is significant periodontal disease and multiple dental caries present. Paranasal sinuses: There is at tenuation bilateral maxillary ostium. Lymph nodes: Physiologic level 1 and 2 nodes are present. There is atrophy of the submandibular glands. Soft tissues: See "Bones/joints" finding. Trachea: There is no compromise of the airway. IMPRESSION: There is a subtle fracture tip of the nasal bone with minimal right perinasal/preseptal periorbital soft tissue swelling. There is no fracture of the mandible,maxilla or orbital fossa. PAGE 1 Signed Report (CONTINUED) [facility] 1955 Age/S: 67 / M [address] [place] [address] Unit #: [id number] Loc: [place] [address] Phys: Taiwo Watson MD Acct: [id number] Dis Date: Status: REG ER PHONE #: [phone] Exam Date: 10/08/2022 1141 FAX #: [phone] Reason: facial injury EXAMS: CPT CODE: [id number] CT MAXIFAC W/O CONTRAST 18871 (Continued) at 1217 Reported and signed by: Sravan Phelan M.D. CC: Taiwo Watson MD Technologist:Meredith Knapp, RT(R )(CT) CTDI: DLP: Trnscb Date/Time: 10/08/2022 (1216) t.[email or web address] Orig Print D/T: S: 10/08/2022 (1216) PAGE 2 Signed Report- CT C-SPINE W/O [id number] 00:00:00[facility] JAKE CEDARVILLEName: NAVEEN MOLINA : 1955 Sex: M Name: NAVEEN MOLINA [facility] : 1955 Age/S: 67 / M [address] [place] [address] Blvd Unit #: [id number] Loc: [place] [address] Phys: Taiwo Watson MD Acct: [id number] Dis Date: Status: REG ER PHONE #: [phone] Exam Date: 10/08/2022 1141 FAX #: [phone] Reason: facial injury EXAMS: CPT CODE: [id number] CT C-SPINE W/O CONT 51985 PROCEDURE INFORMATION: Exam: CT Cervical Spine Without Contrast Exam date and time: 10/08/2022 11:40 AM Age: 67 years old Clinical indication: Injury or trauma; Fall; Blunt trauma; Additional info: Facial injury TECHNIQUE: Imaging protocol: Computed tomography ofthe cervical spine without contrast. Radiation optimization: All CT scans at this facility use at least one of these dose optimization techniques: automated exposure control; mA and/or kV adjustment per patient size (includes targeted exams where dose is matched to clinical indication); or iterative reconstruction. REPORTING DATA: Count of CT and Cardiac NM exams in prior 12 months: This patient has received 0 known CTs and 0 known cardiac nuclear medicine studies in the 12 months prior to the current study. COMPARISON: No relevant prior studies available. FINDINGS: Bones/joints: There is straightening of the normal cervical lordosis without fracture or subluxation of vertebrae. There is significant degenerative narrowing of the C5-C6 and C6-C7 disc spaces with a 2 mm bridging osteophyte and hypertrophic change of uncovertebral joints with minimal to moderate central canal stenosis and moderateforaminal stenosis. There is anterior spondylosis/syndesmophyte formation without ankylosis. The occipital condyles/C1 and C1/C2 facet articulations are maintained as are the remaining facet joints with degenerative changes particularly noted of the right C3-C4, C7-T1 facet articulation. There is no osseous metastatic disease. There is no cerebellar tonsillar ectopia. Lungs: Lung apices are normal. Soft tissues: Unremarkable. IMPRESSION: No acute findings. at 1222 Reported and signed by: Sravan Phelan M.D. PAGE 1 Signed Report (CONTINUED) Name: [facility] : 1955 Age/S: 67 / M [address] [place] [address] Blvd Unit #: [id number] Loc: [place] [address] Phys: Taiwo Watson MD Acct: [id number] Dis Date: Status: REG ER PHONE #: [phone] Exam Date: 10/08/2022 1141 FAX #: [phone] Reason: facialinjury EXAMS: CPT CODE: [id number] CT C-SPINE W/O CONT 60793 (Continued) CC: Taiwo Watson MD Technologist:Meredith Knapp, RT(R)(CT) CTDI: DLP: Trnscb Date/Time: 10/08/2022 (1222) [email or web address].BB15 Orig PrintD/T: S: 10/08/2022 (1222) PAGE 2 Signed ReportFERRITIN [id number] 19:47:19 Test Item Value Reference Range Interpretation Comments FERRITIN (test code = 10.2 ng/mL 18.0-464.0 L 9265871578) NICK (test code = NICK) Biotin has been reported to cause a negative bias, interpret results relative to patient's use of biotin. Lab Interpretation (test Abnormal code = 61485-0) [facility] CenterIRON [id number] 19:18:54 Test Item Value Reference Range Interpretation Comments IRON (test code = 7883097281) 34 ug/dL 50-160 L TIBC (test code = 9735155460) 379 ug/dL 250-410 % FE SAT (test code = 2085208930) 9 % 20-50 L Lab Interpretation (test code = Abnormal 74155-4) [facility] CenterGLYCOSYLATED HEMOGLOBIN (A1C)2022-02-01 21:52:53 Test Item Value Reference Range Interpretation Comments HGB A1C (test code = 5.5 % 4.0-5.7 4548-4) NICK (test code = NICK) Reference RangesNormal: <5.7%Prediabetes: 5.7 - 6.4%Diabetes: > 6.5% Lab Interpretation (test Normal code = 95348-7) [facility] (17855)(TOTAL CHOLESTEROL, TRIGLYCERIDES, HDL)2022-02-01 21:20:11 Test Item Value Reference Range Interpretation Comments CHOL (test code = 171 mg/dL 120-200 5044870538) HDL (test code = 32 mg/dL See_Comment L [Automated message] 7245821731) The system Codacy generated this result transmit zenon reference range : >=40. The refer ence range was not u sed to interpret th is result as normal/abnormal . HDLC RATIO (test code = See_Comment H [Au tomated message] 5533846671) The system Codacy generated this result transmit zenon reference range : <=5.0. The refe rence range was not u sed to interpret th is result as normal/abnormal . TRIG (test code = 85 mg/dL 30-170 6253881313) LDL CHOL (test code = 122 mg/dL See_Comment [Auto mated message] 89883-9) The system Codacy generated this result transmit zenon reference range : <=160. The refe rence range was not u sed to interpret th is result as normal/abnormal . VLDL (test code = 17 mg/dL 5-60 4177785053) Lab Interpretation (test Abnormal code = 16158-5) [facility] CenterCOMP. METABOLIC PANEL (67076)2022-02-01 21:19:55 Test Item Value Reference Range Interpretation Comments NA (test code = 140 mmol/L 135-145 0681206582) K (test code = 4.7 mmol/L 3.5-5.0 6974357098) CL (test code = 103 mmol/L 98-108 3838986218) CO2 TOTAL (test code = 30 mmol/L 23-31 6789206228) AGAP (test code = 2-16 7116264887) BUN (test code = 15 mg/dL 7-23 0266914979) GLUCOSE (test code = 82 mg/dL 70-110 4943813858) CREATININE (test code = 1.26 mg/dL 0.60-1.25 H 3523981201) TOTAL BILI (test code = 0.5 mg/dL 0.1-1.0 0477308933) CALCIUM (test code = 9.6 mg/dL 8.6-10.6 7010215926) T PROTEIN (test code = 7.7 g/dL 6.3-8.2 8795830176) ALBUMIN (test code = 4.4 g/dL 3.5-5.0 6811819838) ALK PHOS (test code = 80 U/L 34-122 8066114590) ALTv (test code = 26 U/L 5-50 2-6) AST(SGOT) (test code = 27 U/L 13-40 5665310896) eGFR (test code = mL/min/1.73m2 7001688929) NICK (test code = NICK) Association of Glomerular Filtration Rate (GFR) and [...] tests). Lab Interpretation Abnormal (test code = 16025-5) [facility] WITH [id number] 20:39:06 Test Item Value Reference Range Interpretation Comments WBC (test code = See_Comment [Automated 6690-2) message] The sy stem which generated this result transmitted reference range : 4.20 - 10.70 10*3/?L. The reference range was not used to interpret this result as normal/abnormal . RBC (test code = See_Comment H [Automated 789-8) message] The sy stem which generated this result transmitted reference range : 4.26 - 5.52 10*6/?L. The reference range was not used to interpret this result as normal/abnormal . HGB (test code = 13.3 g/dL 12.2-16.4 718-7) HCT (test code = 43.8 % 38.4-49.3 4544-3) MCV (test code = 67.3 fL 81.7-95.6 L 787-2) MCH (test code = 20.4 pg 26.1-32.7 L 785-6) MCHC (test code = 30.4 g/dL 31.2-35.0 L 786-4) RDW-SD (test code = 40.7 fL 38.5-51.6 82103-6) RDW-CV (test code = 18.6 % 12.1-15.4 H 788-0) PLT (test code = See_Comment H [Automated 777-3) message] The sy stem which generated this result transmitted reference range : 150 - 328 10*3/ ?L. The reference r pravin was not used to interpret this result as normal/abnormal . MPV (test code = 10.3 fL 9.8-13.0 87621-3) NRBC/100 WBC (test See_Comment [Automat ed code = 9501621229) message] The system which generated this result transmitted reference range : 0.0 - 10.0 /100 WBCs. The refer ence range was not u sed to interpret th is result as normal/abnormal . NRBC x10^3 (test code See_Comment [Auto mated = 7199648079) message] The s ystem which generated this result transmitted reference range : 10*3/?L. The reference range was not used to interpret this result as normal/abnormal . GRAN MAT (NEUT) % 57.8 % (test code = 770-8) IMM GRAN % (test code 0.20 % = 0229086040) LYMPH % (test code = 29.0 % 736-9) MONO % (test code = 9.8 % 5905-5) EOS % (test code = 2.1 % 713-8) BASO % (test code = 1.1 % 706-2) GRAN MAT x10^3(ANC) 5.82 10*3/uL 1.99-6.95 (test code = 4094716974) IMM GRAN x10^3 (test 0.00-0.06 code = 3925653114) LYMPH x10^3 (test code 2.91 10*3/uL 1.09-3.23 = 731-0) MONO x10^3 (test code 0.98 10*3/uL 0.36-1.02 = 742-7) EOS x10^3 (test code = 0.21 10*3/uL 0.06-0.53 711-2) BASO x10^3 (test code 0.11 10*3/uL 0.01-0.09 H = 704-7) Lab Interpretation Abnormal (test code = 70833-0) [facility] WITH [id number] 20:39:06 Test Item Value Reference Range Interpretation Comments WBC (test code = See_Comment [Automated 90-2) message] The sy stem which generated this result transmitted reference range : 4.20 - 10.70 10*3/?L. The reference range was not used to interpret this result as normal/abnormal . RBC (test code = See_Comment H [Automated 079-8) message] The sy stem which generated this result transmitted reference range : 4.26 - 5.52 10*6/?L. The reference range was not used to interpret this result as normal/abnormal . HGB (test code = 13.3 g/dL 12.2-16.4 718-7) HCT (test code = 43.8 % 38.4-49.3 4544-3) MCV (test code = 67.3 fL 81.7-95.6 L 787-2) MCH (test code = 20.4 pg 26.1-32.7 L 785-6) MCHC (test code = 30.4 g/dL 31.2-35.0 L 786-4) RDW-SD (test code = 40.7 fL 38.5-51.6 18552-9) RDW-CV (test code = 18.6 % 12.1-15.4 H 788-0) PLT (test code = See_Comment H [Automated 777-3) message] The sy stem which generated this result transmitted reference range : 150 - 328 10*3/ ?L. The reference r pravin was not used to interpret this result as normal/abnormal . MPV (test code = 10.3 fL 9.8-13.0 72663-4) NRBC/100 WBC (test See_Comment [Automat ed code = 7519000879) message] The system which generated this result transmitted reference range : 0.0 - 10.0 /100 WBCs. The refer ence range was not u sed to interpret th is result as normal/abnormal . NRBC x10^3 (test code See_Comment [Auto mated = 2233322614) message] The s ystem which generated this result transmitted reference range : 10*3/?L. The reference range was not used to interpret this result as normal/abnormal . GRAN MAT (NEUT) % 57.8 % (test code = 770-8) IMM GRAN % (test code 0.20 % = 3416685654) LYMPH % (test code = 29.0 % 736-9) MONO % (test code = 9.8 % 5905-5) EOS % (test code = 2.1 % 713-8) BASO % (test code = 1.1 % 706-2) GRAN MAT x10^3(ANC) 5.82 10*3/uL 1.99-6.95 (test code = 5608503545) IMM GRAN x10^3 (test 0.00-0.06 code = 2613239690) LYMPH x10^3 (test code 2.91 10*3/uL 1.09-3.23 = 731-0) MONO x10^3 (test code 0.98 10*3/uL 0.36-1.02 = 742-7) EOS x10^3 (test code = 0.21 10*3/uL 0.06-0.53 711-2) BASO x10^3 (test code 0.11 10*3/uL 0.01-0.09 H = 704-7) Lab Interpretation Abnormal (test code = 50168-2) [facility]PR[facility] 13:14:00 Test Item Value Reference Range Interpretation Comments RPR SCREEN (BEAKER) (test code = Nonreactive Nonreactive 420) CT, CTANGIO [id number] 09:00:00Unlisted Reason for Exam - Click Yes and Enter Reason Below->No [facility] : 1955 Sex: MFINAL REPORT CT, CTANGIO BRAIN, CT, CAROTID, ANGIOBRAIN CT WITHOUT CONTRAST INDICATION: Stroke, follow up COMPARISON: None TECHNIQUE:Rapid acquisition spiral images were obtained between the aortic arch and the cranial vertex during intravenous contrast infusion to reconstruct axial images and angiographic 3D maximum intensity [...] atrophy. Advanced white matter changes without acute padilla-white disruption. No hemorrhage in the parenchyma.Midline structures: [...] the right compared to distal intracranial portions ofthe same vessel. Focal narrowing of the basilar [...] Conventional. Nonvascular findings:No acute findings within arterial p hase imaging. IMPRESSION: Involutional changes without recent infarct or hemorrhage. Scattered atherosclerotic disease without high-grade narrowing or distal flow compromise in the cervical or intracranial circulations. Signed: JR Taylor Robert MDReport Verified Date/Time: 11/05/2020 09:00:13 Mirian martinez Location: [facility] Radiology Reading Room CT, CAROTID, [id number] 09:00:00Unlisted Reason for Exam - Click Yes and Enter Reason Below->No [facility] : 1955 Sex: MFINAL REPORT CT, CTANGIO BRAIN, CT, CAROTID, ANGIOBRAIN CT WITHOUT CONTRAST INDICATION: Stroke, follow up COMPARISON: None TECHNIQUE:Rapid acquisition spiral images were obtained between the aortic arch and the cranial vertex during intravenous contrast infusion to reconstruct axial images and angiographic 3D maximum intensity [...] atrophy. Advanced white matter changes without acute padilla-white disruption. No hemorrhage in the parenchyma.Midline structures: [...] the right compared to distal intracranial portions ofthe same vessel. Focal narrowing of the basilar [...] Conventional. Nonvascular findings:No acute findings within arterial p hase imaging. IMPRESSION: Involutional changes without recent infarct or hemorrhage. Scattered atherosclerotic disease without high-grade narrowing or distal flow compromise in the cervical or intracranial circulations. Signed: JR Taylor Robert MDReport Verified Date/Time: 11/05/2020 09:00:13 R eading Location: [facility] Radiology Reading Room HEMOGLOBIN [id number] 08:45:00 Test Item Value Reference Range Interpretation Comments HEMOGLOBIN A1C (BEAKER) (test code = 4.8 % 4.3-6.1 368) HEPATIC FUNCTION [id number] 06:56:00 Test Item Value Reference Range Interpretation [...] (test code = 21 U/L 6-55 347) Safety Instructor ID - CELENA LBASIC METABOLIC [id number] 06:56:00 Test Item Value Reference Range Interpretation [...] 697) EGFR (BEAKER) (test 81 mL/min/1.73 ESTIMA ZENON GFR IS code = 1092) sq m NOT ACCURATE CREATININE CLEARANCE IN PREDICTING GLOMERULAR FILTRATION RATE . ESTIMATED GFR I S NOT APPLICABLE FOR DIALYSIS PATIEN TS. Safety Instructor ID - PINILDA [id number] 06:56:00 Test Item Value Reference Range Interpretation Comments MAGNESIUM (BEAKER) (test code = 2.2 mg/dL 1.6-2.6 627) Safety Instructor ID - CELENA [id number] 06:56:00 Test Item Value Reference Range Interpretation Comments PHOSPHORUS (BEAKER) (test code = 3.0 mg/dL 2.3-4.7 604) Safety Instructor ID - CELENA LLIPID [id number] 06:56:00 Test Item Value Reference Range Interpretation Comments TRIGLYCERIDES (BEAKER) (test code = 111 mg/dL 540) CHOLESTEROL (BEAKER) (test code = 142 mg/dL 631) HDL CHOLESTEROL (BEAKER) (test code 27 mg/dL = 976) LDL CHOLESTEROL CALCULATED (BEAKER) 93 mg/dL (test code = 633) Triglyceride Reference Range: Low Risk <150 Borderline 150-199 High Risk 200- 499 Very High Risk >=500Cholesterol Reference Range: Low Risk <200 Borderline 200-239 High Risk >240HDL Cholesterol Reference Range: Low Risk >=60 High Risk <40LDL Cholesterol Reference Range: Optimal <100 Near Optimal 100-129 Borderline 130-159 High 160-189 Very High >=190 Safety Instructor ID - CELENA LTSH/FREE T4 IF [id number] 06:45:00 Test Item Value Reference Range Interpretation Comments THYROID STIMULATING HORMONE 1.888 uIU/mL 0.350-4.940 (BEAKER) (test code = 772) Safety Instructor ID - CELENA LVITAMIN B12 AND [id number] 06:45:00 Test Item Value Reference Range Interpretation Comments VITAMIN B12 220 pg/mL 213-816 (BEAKER) (test code = 774) FOLATE (BEAKER) 10.10 ng/mL See_Comment [Automated message] (test code = 362) The system which generated this result transmitted ref erence range: >=7.00. The reference range was not used to interpr et this result as normal/abnormal . Safety Instructor ID - CELENA LCBC W/PLT COUNT & AUTO [id number] 06:03:00 Test Item Value Reference Range Interpretation [...] (BEAKER) (test code = 2801) VITAMIN D, [id number] 20:58:00 Test Item Value Reference Range Interpretation Comments VIT D 25OH (test code = 29 ng/mL 25-80 80507-0) NICK (test code = NICK) Deficiency: <20 ng/mLInsufficiency : 20-24 ng/mLOptimal: 25-80 ng/mL Lab Interpretation (test Normal code = 17041-0) [facility]2020-03-03 20:37:00 Test Item Value Reference Range Interpretation Comments HGB A1C (test code = 5.3 % 4-6 4548-4) NICK (test code = NICK) %A1C (NGSP) Interpretation (ADA)4.8-5.6 ? ? Normal or (Non-Diabetic Range)5.7-6.4 ? ? Increased Risk (Pre-Diabetic)>6.5 ?Diabetes Indicated Lab Interpretation Normal (test code = 05271-0) [facility] [id number] 19:10:00 Test Item Value Reference Range Interpretation Comments TSH (test code = See_Comment [Automated message] [id number]) The system [employer] generated this result transmitted ref erence range: 0.45 - 4 .70 mIU/L. The refe rence range was not u sed to interpret this result as normal/abnor mal. Lab Interpretation (test Normal code = 90989-9) [facility] SPECIFIC ANTIGEN [id number] 19:09:00 Test Item Value Reference Range Interpretation Comments PSA (test code = 1.36 ng/mL See_Comment [Automated 1138572362) message] The system which generated this result transmitted reference range : <=4.00. The reference range was not used to interpret this result as normal/abnormal . NICK (test code = NICK) Biotin has been reported to cause a negative bias, interpret results relative to patient's use of biotin. Lab Interpretation Normal (test code = 37234-6) [facility]OL[facility] PANEL (32042)2020-03-03 19:09:00 Test Item Value Reference Range Interpretation Comments NA (test code = 140 mmol/L 135-145 3911400787) K (test code = 4.5 mmol/L 3.5-5 8869747072) CL (test code = 98 mmol/L 98-108 0678135179) CO2 TOTAL (test code = 31 mmol/L 23-31 9845041156) AGAP (test code = 2-16 7139340795) BUN (test code = 12 mg/dL 7-23 1046741815) GLUCOSE (test code = 91 mg/dL 70-110 2061361173) CREATININE (test code = 1.16 mg/dL 0.6-1.25 0103709904) TOTAL BILI (test code = 1.0 mg/dL 0.1-1.7 0894237649) CALCIUM (test code = 10.5 mg/dL 8.6-10.6 8945221678) T PROTEIN (test code = 8.3 g/dL 6.3-8.2 H 7044143910) ALBUMIN (test code = 4.9 g/dL 3.5-5 8393059080) ALK PHOS (test code = 77 U/L 34-122 5163024009) ALTv (test code = 68 U/L 5-50 H 1742-6) AST(SGOT) (test code = 65 U/L 13-40 H 2503213261) eGFR Calculation mL/min/1.73m2 (Non-) (test code = 5897373384) eGFR Calculation mL/min/1.73m2 () (test code = 3962375338) NICK (test code = NICK) Association of Glomerular Filtration Rate (GFR) and [...] tests). Lab Interpretation Abnormal (test code = 68695-7) [facility]2020-[facility]-30 18:49:00 Test Item Value Reference Range Interpretation Comments APPEARANCE (test code = Clear Clear 8078821723) COLOR (test code = Yellow Yellow 9903990817) PH (test code = 4.8-8.0 7797005838) SP GRAVITY (test code = 1.003-1.030 2989297375) GLU U QUAL (test code = Normal Normal 5444808197) BLOOD (test code = Negative Negative 7546584439) KETONES (test code = Negative Negative 8450131357) PROTEIN (test code = 30 mg/dL Negative A 2887-8) UROBILIN (test code = Normal Normal 3527598044) BILIRUBIN (test code = Negative Negative 1512574065) NITRITE (test code = Negative Negative 0295450937) LEUK JAYDEN (test code = Negative Negative 6731793428) RBC/HPF (test code = See_Comment [Autom ated message] 5660338595) The system [employer] generated this result transmitted ref erence range: 0 - 3 HP F. The reference range was not used to int erpret this result as normal/abnormal . WBC/HPF (test code = See_Comment [Autom ated message] 8581066067) The system [employer] generated this result transmitted ref erence range: 0 - 5 HP F. The reference range was not used to int erpret this result as normal/abnormal . BACTERIA (test code = Negative Negative 2869983794) MUCOUS (test code = Marked Negative LPF A 3351005637) AMORPHOUS (test code = Rare Rare HPF 3652139719) HYAL CAST (test code = See_Comment H [Aut omated message] 0319422113) The system [employer] generated this result transmitted ref erence range: <=2 LPF. The reference range was not used to int erpret this result as normal/abnormal . Lab Interpretation (test Abnormal code = 78093-7) [facility] CenterLIPID PANEL (81136)(TOTAL CHOLESTEROL, TRIGLYCERIDES, HDL)2020-03-03 18:38:00 Test Item Value Reference Range Interpretation Comments CHOL (test code = 141 mg/dL 120-200 6285965788) HDL (test code = 35 mg/dL >40 L 3839232230) HDLC RATIO (test code = See_Comment [Au tomated message] 4970595416) The system Codacy generated this result transmit zenon reference range : <=5.0. The refe rence range was not u sed to interpret th is result as normal/abnormal . TRIG (test code = 163 mg/dL 30-170 6137079100) LDL CHOL (test code = 73 mg/dL See_Comment [Auto mated message] 54219-5) The system Cod[employer] generated this result transmit zenon reference range : <=160. The refe rence range was not u sed to interpret th is result as normal/abnormal . VLDL (test code = 33 mg/dL 5-60 2096247955) Lab Interpretation (test Abnormal code = 53665-4) [facility] CenterCBC WITHOUT [id number] 18:28:00 Test Item Value Reference Range Interpretation Comments WBC (test code = 6690-2) See_Comment [A utomated message] The system Cod[employer] generated this result transmit zenon reference range : 4.20 - 10.70 10*3/?L. The reference range was not used to interpret this result as normal/abnormal . RBC (test code = 789-8) See_Comment H [Au tomated message] The system [employer] generated this result transmit zenon reference range : 4.26 - 5.52 10* [...] See_Comment H [Au tomated message] The system [employer] generated this result transmit zenon reference range : 150 - 328 10*3/?L. The reference range was not used to interpret this result as normal/abnormal . MPV (test code = 10.8 fL 9.8-13 40472-9) RDW-CV (test code = 16.9 % 12.1-15.4 H 788-0) RDW-SD (test code = 37.4 fL 38.5-51.6 L 64337-0) NRBC x10^3 (test code = <0.01 See_Comment [Au tomated message] 8172241309) The system [employer] generated this result transmit zenon reference range : 10*3/?L. The reference range was not used to interpret this result as normal/abnormal . NRBC/100 WBC (test code See_Comment [Au tomated message] = 5708567609) The system [employer] generated this result transmit zenon reference range : 0.0 - 10.0 /100 WBC s. The reference r pravin was not used to interpret this result as normal/abnormal . IPF % (test code = 9155271157) Lab Interpretation (test Abnormal code = 99145-4) [facility] Notes Date/Time Note Provider Source 2022-10-27 10:15:00-00:00 Formatting of this note is d ifferent from the original. [facility] [place]em[place] Images from the original note were not included. Venipuncture collection perf ormed by clean technique on the right anticubitus. Total of 1 attempts were made. Slight pressure and a bandage/dressing were applied to the site(s). The patient experienced no complications. The follow ing specimens were processed according to instructions and sent to [facility] laboratories per lab order on 10/27/2022: LT BLUE SST RED LAV 1 PPT DK GREEN (LiHep) DK GREEN (SodH) [place] DK BLUE (K2) DK BLUE (S) ACD Blood Culture NIPT/NTD Electronically signed by Sirisha Patel MA a t 10/27/2022 10:16 AM CDT 2022-10-15 13:30:00-00:00 Formatting of this note is d ifferent from the original. [facility] - Health Images from the original note were not included. Venipuncture collection perf ormed by clean technique on the right anticubitus. Total of 1 attempts were made. Slight pressure and a bandage/dressing were applied to the site(s). The patient experienced no complications. The follow ing specimens were processed according to instructions and sent to [facility] laboratories per lab order on today: LT BLUE SST 1-1EXTRA RED LAV 2 PPT DK GREEN (LiHep) DK GREEN (SodH) [place] DK BLUE (K2) DK BLUE (S) ACD Blood Culture NIPT/NTD Patient has been identified by name and was provided with cup, antiseptic towelette, and clean catch instructions. 1 urine specimen(s) sent. Unpreserved 1 Urine Culture Aptima tube Other urine Electronically signed by Francoise Wu at 0 10/15/2022 1:53 PM CDT 2022-10-08 11:47:00-00:00 [facility] ([facility]) EMERGENCY PROVIDER REPORT REPORT#:[id number] REPORT STATUS: Signed DATE:10/08/22 TIME: 114 PATIENT: NAVEEN MOLINA UNIT #: [id number] ROOM/BED: AGE: 67 SEX: M PCP PHYS: Adrien Leahy MD SERVICE AUTHOR: Taiwo Watson MD * ALL edits or amendments must be made on the el ectronic/computer document * HPI-General Illness Free Text HPI Notes Free Text HPI Notes 67-year-old male, history of speech impediment. Mechanical slip and fall, landing on face. Patient bruised his nos e, did break a tooth. Positive LOC per family and EMS. General Initial Greet Date/Time 10/08/22 1119 Presentation Chief Complaint Fall Review of Systems Review of Systems Ears/Nose/Throat Reports: Mouth pain. Skin Reports: Abrasion. Neurologic Reports: Headache. Past Medical History - Adult Stated Complaint FALL, FACIAL INJURIES Allergies Coded Allergies: No Known Allergies (10/08/22) Additional Medical History Speech impediment Smoking status for patients 13 years old or olde r: Unknown,if ever smoked Physical Exam Vital Signs Vital Signs First Documented: Result Date Time Pulse Ox 95 10/08 1118 B/P 165/99 10/08 1118 B/P Mean 121 10/08 1118 O2 Delivery Room air 10/08 1118 Temp 36.8 10/08 1118 Pulse 61 10/08 1118 Resp 16 10/08 1118 Last Documented: Result Date Time Pulse Ox 95 10/08 1118 B/P 165/99 10/08 1118 B/P Mean 121 10/08 1118 O2 Delivery Room air 10/08 1118 Temp 36.8 10/08 1118 Pulse 61 10/08 1118 Resp 16 10/08 1118 Review of Vital Signs Reviewed Physical Exam General/Const General/Const Awake, Alert Text/Dict Notes Chronically ill-appearing Ears/Nose/Throat Text/Dict Notes Blood around mouth, patient with poor dentition throughout. Bleeding seems to be localized from the upper teeth. Right maxillary central inci sor with fracture, right lateral incisor absent, but no active bleeding. Suspect was removed prior. Resp/Chest Respiratory/Chest Breath sounds NL, Breath soun ds = bilat, No respiratory distress, No rales, No rhonchi, No wheezing Cardiovascular Cardiovascular Heart rate NL, Regular r hythm, Heart sounds NL, Cap refill not delayed, Peripheral circulation NL Abdomen/GI Abdomen/GI Soft, Non-tender, No guarding, No re bound Neurologic Neurologic Oriented X3, Speech NL, No motor def icits, No sensory deficits Interpretation Diagnostics Lab Results Interpretation Results Recent Impressions: CAT SCAN - CT C-SPINE W/O CONT 10/08 114 Report Impression - Status: SIGNED Entered: 10/08/2022 1222 IMPRESSION: No acute findings. Impression By: Jesus Metcalf CAT SCAN - CT MAXIFAC W/O CONTRAST 10/08 1141 Report Impression - Status: SIGNED Entered: 10/08/2022 1217 IMPRESSION: There is a subtle fracture tip of th e nasal bone with minimal right perinasal/preseptal periorbit al soft tissue swelling. There is no fracture of the mandible, maxilla or orbital fossa. Impression By: Jesus Metcalf CAT SCAN - CT HEAD/BRAIN W/O CONT 10/08 1141 Report Impression - Status: SIGNED Entered: 10/08/2022 1216 IMPRESSION: There are no extra-axial fluid colle ctions. There is significant periventricular and subcortical g liosis of the supratentorial brain with moderate central/corti kacey atrophy/ventriculomegaly. There are chronic lacu nick infarcts within the jose, bilateral basal ganglia, zuniga radiata and centrum. There is no acute cortical infarct, hemorrhage o r intra axial mass. Impression By: [email or web address] - Jesus Phoenix Re-Evaluation MDM Free Text MDM Notes Free Text MDM Notes 67-year-old male, head injury, dental injury -We will CT head, C-spine, max face. -Will reevaluate dental inju marsha, cover with calcium hydroxide/dental cement if available. Patient does have nasal bone fracture, o therwise no other injuries found on CT imaging. We do not have calcium hydroxide or den chaparrita cement. Given exposure, will be discharged with antibiotics for pulpitis . Recommend emergent dental follow-up. ED Course Medication(s) Ordered Medication(s) Ordered: Serums, Toxoids, And Vaccines Sig/Hans Start time Last Medication Dose Route Stop Time Status Admin Diphtheria/Tetanus/ 0.5 ML X1ED STA 10/08 1121 DC 10/08 Acell Pertussis IM 10/08 1122 1234 Patient Discharge Departure Vital Signs/Condition Vital Signs First Documented: Result Date Time Pulse Ox 95 10/08 1118 B/P 165/99 10/08 1118 B/P Mean 121 10/08 1118 O2 Delivery Room air 10/08 1118 Temp 36.8 10/08 1118 Pulse 61 10/08 1118 Resp 16 10/08 1118 Last Documented: Result Date Time Pulse Ox 95 10/08 1118 B/P 165/99 10/08 1118 B/P Mean 121 10/08 1118 O2 Delivery Room air 10/08 1118 Temp 36.8 10/08 1118 Pulse 61 10/08 1118 Resp 16 10/08 1118 All vital signs available at the time of this en try have been reviewed. Clinical Impression Clinical Impression Primary Impression: Nasal fracture Secondary Impressions: Tooth fracture Disposition Decision Discharge )( Discharged to Home Yes )( Time 1256 )( Date 10/08/22 Discharge/Care Plan (Auto) Prescriptions Current Visit Scripts CLINDAMYCIN HCL (CLEOCIN) 300 MG PO Q6H CLINDAMYCIN HCL (CLEOCIN) 300 MG PO Q6H #40 CAP S Patient Instructions ED Dental Trauma, ED Nose I njury Tx Additional Instructions You were seen in the ER for fall. Our CT of your brain and demonstrate no intracranial injury. However you do have a small nasal bone fracture, as well as a tooth fracture. Please continue take the an tibiotics as there is pulp exposed. Please follow-up with a dentist emergen tly to have this repaired. Electronically Signed by Taiwo Watson MD on 10/24 at 1552 RPT #:[id number] END OF REPORT
[2022-12-03 12:27] LABS: Absolute Lymphocytes (CBC) 1.7 K/uL (0.7-4.9); Hematocrit 43.8 % (39.6-49.0); Lymphocytes % 17.3 % (15.3-44.8); MCV 68.3 fL (80-100); MPV 8.9 fL (7.6-11.3); Platelets 359 thou/uL (152-406); RBC Red Blood Cell Count 6.41 M/uL (4.33-5.43)
--- NOTE | 2022-12-03 12:42 | RAD REPORT ---
EXAM DESCRIPTION: CT - Head Brain Wo Cont - 12/03/2022 12:34 pm CLINICAL HISTORY: DIZZINESS Headache, drowsiness COMPARISON: Head angio dated 02/02/2021; Head Brain Wo Cont dated 02/02/2021 TECHNIQUE: All CT scans are performed using dose optimization technique as appropriate and may inclu de automated exposure control or mA/KV adjustment according to patient size. FINDINGS: No intracranial hemorrhage, hydrocephalus or extra-axial fluid collection.Advanced general ized brain atrophy is present with moderate periventricular and deep white matter chronic microvascul ar ischemic changes.No areas of brain edema or evidence of midline shift. Left vertebral atherosclero sis. The paranasal sinuses and mastoids are clear. The calvarium is intact. IMPRESSION: No acute intracranial abnormality.
[2022-12-03 12:45] LABS: Albumin 3.7 g/dL (3.4-5.0); Bilirubin Direct 0.2 mg/dL (0-0.2); Bilirubin Indirect, Calculated 0.5 mg/dL (0.2-0.8); Bilirubin Total 0.7 mg/dL (0.2-1.0); Magnesium 2.1 mg/dL (1.6-2.4); Potassium 3.8 mEq/L (3.5-5.1); Protein, Total 7.5 g/dL (6.4-8.2)
--- NOTE | 2022-12-03 12:57 | EDPHYS ---
Physician Documentation [facility] Name: Ovidio Echols Age: 67 yrs Sex: Male : 1955 Arrival Date: 12/03/2022 Time: 12:02 Bed 19 Private MD: ED Physician Jeffrey Wolf HPI: 12/03 12:51 This 67 yrs old Male presents to ER via EMS with complaints of Overheating. 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 Patient was outside for over an hour waiting for the local bus where he became dizzy and lightheaded as he was approaching and entering the bus after which she had a slow fall to the ground without any significant trauma and the pants busheler activated EMS. EMS arrived to find patient stable with normal vital signs and normal neurological exam as per his baseline. They started normal saline and after about 400 mL that were given in route to the ED, patient feels back to normal. He currently has no complaints whatsoever and denies headache, fever, URI symptoms, neck pain, chest pain, shortness of breath, abdominal pain, back pain, nausea, vomiting, diarrhea, syncope, rash, numbness or tingling, LOC, pain from trauma, or any other signs or symptoms on ROS at this time.. Historical: - Allergies: 12:06 No Known Allergies; mb9 - Home Meds: 12:06 lisinopril Oral [Active]; Metoprolol Tartrate Oral [Active]; mb9 - PMHx: 12:06 BPH; CVA; Hypercholesterolemia; Hypertension; mb9 - PSHx: 12:06 None; mb9 - Immunization history:: Adult Immunizations up to date. - Social history:: Smoking status: Patient denies any tobacco usage or history of. ROS: 12:52 Constitutional: Negative for fever, chills, and weight loss, Eyes: Negative for injury, sp3 pain, redness, and discharge, Neck: Negative for injury, pain, and swelling, Cardiovascular: Negative for chest pain, palpitations, and edema, Respiratory: Negative for shortness of breath, cough, wheezing, and pleuritic chest pain, Abdomen/GI: Negative for abdominal pain, nausea, vomiting, diarrhea, and constipation, Back: Negative for injury and pain, MS/Extremity: Negative for injury and deformity, Skin: Negative for injury, rash, and discoloration, Psych: Negative for depression, anxiety, suicide ideation, homicidal ideation, and hallucinations, Allergy/Immunology: Negative for hives, rash, and allergies, Endocrine: Negative for neck swelling, polydipsia, polyuria, polyphagia, and marked weight changes. 12:52 All other systems are negative. Exam: 12:53 Constitutional: This is a well developed, well nourished patient who is awake, alert, sp3 and in no acute distress. Head/Face: Normocephalic, atraumatic. Eyes: Pupils equal round and reactive to light, extra-ocular motions intact. Lids and lashes normal. Conjunctiva and sclera are non-icteric and not injected. Cornea within normal limits. Periorbital areas with no swelling, redness, or edema. ENT: Nares patent. No nasal discharge, no septal abnormalities noted. External auditory canals are clear. Oropharynx with no redness, swelling, or masses, exudates, or evidence of obstruction, uvula midline. Mucous membranes moist. Neck: Trachea midline, no thyromegaly or masses palpated, and no cervical lymphadenopathy. Supple, full range of motion without nuchal rigidity, or vertebral point tenderness. No Meningismus. Chest/axilla: Normal chest wall appearance and motion. Nontender with no deformity. No lesions are appreciated. Cardiovascular: Regular rate and rhythm with a normal S1 and S2. No gallops, murmurs, or rubs. Normal PMI, no JVD. No pulse deficits. Respiratory: Lungs have equal breath sounds bilaterally, clear to auscultation and percussion. No rales, rhonchi or wheezes noted. No increased work of breathing, no retractions or nasal flaring. Abdomen/GI: Soft, non-tender, with normal bowel sounds. No distension or tympany. No guarding or rebound. No evidence of tenderness throughout. Back: No spinal tenderness. No costovertebral tenderness. Full range of motion. MS/ Extremity: Pulses equal, no cyanosis. Neurovascular intact. Full, normal range of motion. Psych: Awake, alert, with orientation to person, place and time. Behavior, mood, and affect are within normal limits. 12:53 Neuro: Neurological exam grossly intact other than the dysarthria. Patient is able to understand and converse via his baseline route of communication. He denies any pain or symptoms whatsoever.. Vital Signs: 12:04 BP 108 / 73; Pulse 91; Resp 18; Temp 98.4; Pulse Ox 97% on R/A; Weight 93.44 kg; Height mb9 5 ft. 9 in. ; Pain 0/10; 12:59 BP 111 / 81; Pulse 88; Resp 16; Pulse Ox 97% on R/A; mb9 12:04 Body Mass Index 30.42 (93.44 kg, 175.26 cm) mb9 12:04 Pain Scale: Adult mb9 MDM: 12:04 Patient medically screened. sp3 12:53 Data reviewed: vital signs, nurses notes, EMS record, lab test result(s), EKG, sp3 radiologic studies. ED course: 67-year-old male with PMH above now presents with probable dehydration and heat exhaustion. Patient now feels completely normal. EKG demonstrates normal sinus rhythm at 74 bpm with normal intervals, normal QRS, normal axis, nonspecific diffuse ST/T changes without evidence of acute ischemia. Also obtain CT scan of the head, laboratory values and administer the remainder of saline. If work-up is negative we will safely discharge him home. I am not highly suspicious for acute coronary syndrome, CVA/TIA spectrum, sepsis, shock or any other critical findings at this time.. 12:55 ED course: Laboratory values reviewed and demonstrate no significant abnormality. sp3 Creatinine is 1.7. 4 years ago in his old chart which is his last creatinine it was 1.41. Patient has a baseline renal insufficiency which may be slightly worse secondary to dehydration. We will give an additional 500 mL of normal saline prior to discharge.. 12/03 12:05 Order name: Basic Metabolic Panel; Complete Time: 12:54 sp3 12/03 12:05 Order name: CBC with Diff sp3 12/03 12:05 Order name: LFT's; Complete Time: 12:54 sp3 12/03 12:05 Order name: Magnesium; Complete Time: 12:54 sp3 12/03 12:05 Order name: NT PRO-BNP; Complete Time: 12:54 sp3 12/03 12:05 Order name: Troponin HS; Complete Time: 12:54 sp3 12/03 13:33 Order name: CBC Smear Scan EDND 12/03 12:05 Order name: CT Head Brain wo Cont; Complete Time: 12:54 sp3 12/03 12:05 Order name: EKG; Complete Time: 12:05 sp3 12/03 12:05 Order name: Cardiac monitoring; Complete Time: 12:07 sp3 12/03 12:05 Order name: EKG - Nurse/Tech; Complete Time: 12:12 sp3 12/03 12:05 Order name: IV Saline Lock; Complete Time: 12:07 sp3 12/03 12:05 Order name: Labs collected and sent; Complete Time: 12:07 sp3 12/03 12:05 Order name: O2 Per Protocol; Complete Time: 12:07 sp3 12/03 12:05 Order name: O2 Sat Monitoring; Complete Time: 12:07 sp3 Administered Medications: 13:00 Drug: NS 0.9% IV 500 ml Route: IV; Rate: bolus; Site: left antecubital; mb9 Disposition Summary: 12/03/22 12:57 Discharge Ordered Location: Home sp3 Condition: Stable sp3 Diagnosis - Heat exhaustion, mild dehydration, near syncope now resolved sp3 Followup: sp3 - With: Private Physician - When: Upon discharge from the Emergency Department - Reason: Continuance of care Discharge Instructions: - Discharge Summary Sheet sp3 - Heat Exhaustion sp3 Forms: - Medication Reconciliation Form sp3 - Thank You Letter sp3 - Antibiotic Education sp3 - Prescription Opioid Use sp3 - Patient Portal Instructions sp3 - Leadership Thank You Letter sp3 Signatures: Dispatcher [employer] Jeffrey Mcnair MD MD sp3 Natalee Bowman RN RN mb9
--- NOTE | 2022-12-03 12:57 | ER ---
Nurse's Notes [facility] Name: Ovidio Echols Age: 67 yrs Sex: Male : 1955 Arrival Date: 12/03/2022 Time: 12:02 Bed 19 Private MD: Diagnosis: Heat exhaustion, mild dehydration, near syncope now resolved Presentation: 12/03 12:04 Chief complaint: EMS states: "Toned out for getting dizzy and falling to ground while mb9 sitting outside in the heart for 1 hr at the bus stop. Pt denies LOC or taking blood thinners. 18 g to left AC and administer 1 liter of NS.". Coronavirus screen: Vaccine status: Patient reports receiving the 2nd dose of the covid vaccine. Ebola Screen: No symptoms or risks identified at this time. Initial Sepsis Screen: Does the patient meet any 2 criteria? No. Patient's initial sepsis screen is negative. Does the patient have a suspected source of infection? No. Patient's initial sepsis screen is negative. Risk Assessment: Do you want to hurt yourself or someone else? Patient reports no desire to harm self or others. Onset of symptoms was December 03, 2022. 12:04 Method Of Arrival: EMS mb9 12:04 Acuity: MERA 3 mb9 Triage Assessment: 12:07 General: Appears in no apparent distress. Behavior is calm, cooperative. Pain: Denies mb9 pain. Neuro: Schmitt Agitation-Sedation Scale (RASS): 0 - Alert and Calm Level of Consciousness is awake, alert, obeys commands, Oriented to person, place, time, situation, none Denies dizziness. Cardiovascular: Heart tones S1 S2 present Patient's skin is warm and dry. Respiratory: Airway is patent Respiratory effort is even, unlabored, Respiratory pattern is regular, symmetrical, Breath sounds are clear bilaterally. GI: Abdomen is flat, non-distended, Bowel sounds present X 4 quads. Abd is soft and non tender X 4 quads. : No signs and/or symptoms were reported regarding the genitourinary system. Derm: Skin is pink, warm \\T\\ dry. Musculoskeletal: Range of motion: intact in all extremities. Historical: - Allergies: 12:06 No Known Allergies; mb9 - Home Meds: 12:06 lisinopril Oral [Active]; Metoprolol Tartrate Oral [Active]; mb9 - PMHx: 12:06 BPH; CVA; Hypercholesterolemia; Hypertension; mb9 - PSHx: 12:06 None; mb9 - Immunization history:: Adult Immunizations up to date. - Social history:: Smoking status: Patient denies any tobacco usage or history of. Screenin:08 [facility] ED Fall Risk Assessment (Adult) History of falling in the last 3 months, mb9 including since admission Yes- single mechanical fall (1 pt) Confusion or Disorientation No (0 pts) Intoxicated or Sedated No (0 pts) Impaired Gait No (0 pts) Mobility Assist Device Used Yes (1 pt) Altered Elimination No (0 pt) Score/Fall Risk Level 0 - 2 = Low Risk Oriented to surroundings, Maintained a safe environment, Educated pt \\T\\ family on fall prevention, incl call for assistance when getting out of bed. Abuse screen: Denies threats or abuse. Nutritional screening: No deficits noted. Tuberculosis screening: No symptoms or risk factors identified. Assessment: 12:08 Reassessment: see triage assessment. mb9 12:59 Reassessment: No changes from previously documented assessment. Patient and/or family mb9 updated on plan of care and expected duration. Pain level reassessed. Patient is alert, oriented x 3, equal unlabored respirations, skin warm/dry/pink. 12:59 Reassessment: discharge pending completion of fluids. mb9 Vital Signs: 12:04 BP 108 / 73; Pulse 91; Resp 18; Temp 98.4; Pulse Ox 97% on R/A; Weight 93.44 kg; Height mb9 5 ft. 9 in. ; Pain 0/10; 12:59 BP 111 / 81; Pulse 88; Resp 16; Pulse Ox 97% on R/A; mb9 12:04 Body Mass Index 30.42 (93.44 kg, 175.26 cm) mb9 12:04 Pain Scale: Adult mb9 ED Course: 12:04 Patient arrived in ED. mb9 12:04 Jeffrey Wolf MD is Attending Physician. sp3 12:04 Arm band placed on. mb9 12:05 Triage completed. mb9 12:05 No provider procedures requiring assistance completed. Maintain EMS IV. Dressing mb9 intact. Good blood return noted. Site clean \\T\\ dry. Gauge \\T\\ site: 18g left AC. 12:08 Natalee Bowman, RN is Primary Nurse. mb9 12:08 Placed in gown. Bed in low position. Call light in reach. Side rails up X 1. Client mb9 placed on continuous cardiac and pulse oximetry monitoring. NIBP monitoring applied. ground instructor advanced on. 12:20 EKG done, by ED staff. bc6 12:21 Basic Metabolic Panel Sent. mb9 12:21 CBC with Diff Sent. mb9 12:21 LFT's Sent. mb9 12:21 Magnesium Sent. mb9 12:21 NT PRO-BNP Sent. mb9 12:21 Troponin HS Sent. mb9 12:35 CT Head Brain wo Cont In Process Unspecified. EDMS 13:48 IV discontinued, intact, bleeding controlled, No redness/swelling at site. Pressure mb9 dressing applied. Administered Medications: 13:00 Drug: NS 0.9% IV 500 ml Route: IV; Rate: bolus; Site: left antecubital; mb9 Medication: 12:08 VIS not applicable for this client. mb9 Outcome: 12:57 Discharge ordered by . sp3 13:48 Discharged to home ambulatory. mb9 13:48 Condition: stable 13:48 Discharge instructions given to patient, Instructed on discharge instructions, follow up and referral plans. Demonstrated understanding of instructions, follow-up care. 13:48 Patient left the ED. mb9 Signatures: Dispatcher [employer] EDMS Jeffrey Wolf MD MD sp3 Natalee Bowman, RN RN mb9 Lynda Figueroa 6 Corrections: (The following items were deleted from the chart) 12:07 12:04 Chief complaint: EMS states: "Toned out for getting dizzy and falling to ground mb9 while sitting outside in the heart for 1 hr [place] the bus stop. Pt denies LOC or taking blood thinners." mb9
[2022-12-03] MEDS ORDERED: NA CHLORIDE 0.9% 500 ML ONE (13:12)
[2022-12-03 13:32] LABS: Blood Morphology Comment NOTED (NOT SEEN); Hypochromasia 1+; Ovalocytes 1+; Platelet Estimate ADEQ; White Blood Cell Scan OK (OK)
[2022-12-03 14:15] VITALS: TEMP 98.4; O2SAT 97
[2022-12-03 14:16] VITALS: BP 111/81
--- NOTE | 2022-12-04 14:39 | EKG ---
Test Date: 2022-12-03 Test Time: 12:17:40 Orthopedically Impaired Teacher: ODALYS MEASUREMENT RESULTS: Intervals: Rate: 74 VA: 164 QRSD: 94 QT: 374 QTc: 415 Denio: P: 50 VA: 164 QRS: 79 T: 36 INTERPRETIVE STATEMENTS: Normal sinus rhythm Low voltage QRS Borderline ECG Compared to ECG 02/02/2021 13:54:35 Low QRS voltage now present Sinus bradycardia no longer present Atrial premature complex(es) no longer present Electronically Signed On 12-04-22 14:36:52 CDT by Hollis Hanna
== END 2022-12-03 13:48 | disposition home or self-care (01) ==
LOC: ER 12:02
DX: T67.5XXA Heat exhaustion, unspecified, initial encounter (principal); E86.0 Dehydration; I10 Essential (primary) hypertension; E78.00 Pure hypercholesterolemia, unspecified; Z86.73 Personal history of transient ischemic attack (TIA), and cerebral infarction without residual deficits
CPT/HCPCS: 93005; 85025; 80048; 36415; 83735; 80076; 84484; 83880; 70450; 99285; J7040

== ENCOUNTER 2023-01-04 08:25 | Emergency (ER) | payer OTHER ==
--- OUTSIDE RECORDS SUMMARY | 2023-01-04 08:35 | XMS REPORT | Continuity of Care Document ---
:1955 Author Organization [facility] t Address [address] [place] [address] [place] [id number] Care Team Providers Name Role Phone Leonides Tran MD Primary Care Physician [phone] MICHAEL ONEAL Attending Clinician Unavailable Doctor Unassigned, Purdy Attending Clinician Unavailable PADMAJA CONTE Attending Clinician Unavailable DARBY NIELSEN Attending Clinician Unavailable DARBY NIELSEN Attending Clinician Unavailable Rosaura Tucker Attending Clinician Lab, Ang - Db Attending Clinician Unavailable ROSAURA CASTILLO Attending Clinician Unavailable Taiwo Watson Attending Clinician Unavailable KATHE GHOTRA Attending Clinician Unavailable Kathe Pappas Attending Clinician Katelyn Bartlett Attending Clinician Tri_Marguerite Attending Clinician Unavailable Leonides Tran MD Attending Clinician Millie Lyle Attending Clinician Alvin Attending Clinician Unavailable BILL KOHLI Attending Clinician Unavailable Nurse, Adc Pob Immunization Attending Clinician Unavailable Bill Kohli DO Attending Clinician LEONIDES TRAN Attending Clinician Unavailable NARCISO GARCIA Attending Clinician Unavailable Lab, Adc Fam Pob I Attending Clinician Unavailable SAGAR STEWART Attending Clinician Unavailable CHINO MUSA Attending Clinician Unavailable Provider, [facility] Attending Clinician Unavailable Viridiana Oliva Attending Clinician VIRIDIANA ROQUE Attending Clinician Unavailable Abundio Uriostegui MD Attending Clinician ABUNDIO URIOSTEGUI Attending Clinician Unavailable Elma Austin MD Attending Clinician ELMA AUSTIN Attending Clinician Unavailable MICHAEL ONEAL Admitting Clinician Unavailable Adrien Leahy Admitting Clinician Unavailable Tri_Marguerite Admitting Clinician Unavailable Valdo_Mirian Admitting Clinician Unavailable NARCISO GARCIA Admitting Clinician Unavailable Payers Payer Name Policy Type Policy Number Effective Date Expiration Date S cisco [facility] MGD [id number] 2020 [facility] 00:00:00 [facility] [id number] 2020-11-02 (MEDICARE 00:00:00 REPLACEMENT HMO) Problems Condition Condition [...] Disease Active 2019-04 U nivers osis osis 209 ity of 00:00: [place] 00 Medical Branch Abnormal Abnormal Disease Active 2019-04 Unive rs LFTs LFTs 2-09 ity of 00:00: [place] 00 [facility] Branch 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 (under 40) (under 40) 4-05 it y of 00:00: [place] 00 [facility] Erythrocyt Erythrocyt Disease Active U nivers osis osis 4-05 ity of 00:00: [place] 00 [facility] Microcytos Microcytos Disease Active U nivers is is 4-05 ity of 00:00: [place] 00 [facility] Screening Screening Disease Active Overview: Univers for for 07-06 Added ity of colorectal colorectal 00:00: automatic [place] cancer cancer 00 ally from Medical request Branch for surgery [id number] DDD DDD Disease Active Univers (degenerat (degenerat [...] Active U nivers on on ity of [facility] History of History of Disease Active Overview : Univers CVA CVA Formattin ity of (cerebrova (cerebrova g of this [place] scular scular note Medical accident) accident) might be Br anch different from the original. About 20 years ago (around 1999) Stroke Stroke Disease Active Univers ity of [facility] Allergies, Adverse Reactions, Alerts Allergy Allergy Status Severity Reaction(s) Onset Inactive Treating Comm ents Source Name Type Date Date Clinician No Known DA Active U [facility] Allergie 10-08 Clear s 00:00: [place] 00 [facility] NO KNOWN Allergy Active [facility] NO KNOWN Drug Active Univers ALLERGIE Class ity of S [facility] Social History Social Habit Start Date Stop Date Quantity Comments Source Gender identity Universit y of [facility] Sexual orientation Univer sity [facility] Exposure to 2022-01-22 2022-02-01 Not sure University of SARS-CoV-2 (event) 00:00:00 11:13:00 [facility] History of Social 2022-02-01 2022-02-01 Univers ity of function 00:00:00 00:00:00 [facility] Alcohol intake 2020-11-04 2020-11-04 Ex-drinker [facility] es 00:00:00 00:00:00 (finding) [facility] Tobacco use and 2020-11-04 2020-11-04 Smokeless PADMAJA Bennett exposure 00:00:00 00:00:00 tobacco non-user [facility] Sex Assigned At [birth year] PADMAJA Bennett 00:00:00 [facility]:00:00 [facility] Smoking Status Start Date Stop Date Source Unknown if ever smoked [facility] Branch Never smoked tobacco [facility] Medications Ordered Filled Start Stop Current Ordering Indication Dosage Frequency Signature Comments Components Source Medication Medication Date Date Medication? Clinician (SIG) Name Name aspirin 81 2022-0 Yes 81mg Take 1 Unive rs mg chewable 7-26 tablet by ity of tablet 09:55: mouth in [place] [address] the Medical morning. Branch aspirin 81 2022-0 Yes 81mg Take 1 Unive rs mg chewable 7-26 tablet by ity of tablet 09:55: mouth in [place] 56 the Medical morning. Branch aspirin 81 2022-0 Yes 81mg Take 1 Unive rs mg chewable 7-26 tablet by ity of tablet 09:55: mouth in [place] [address] the Medical morning. Branch aspirin 81 2022-0 Yes 81mg Take 1 Unive rs mg chewable 7-26 tablet by ity of tablet 09:55: mouth in [place] [address] the Medical morning. Branch aspirin 81 3-0 Yes 81mg Take 1 Unive rs mg chewable 7-26 tablet by ity of tablet 09:55: mouth in [place] 56 the Medical morning. Branch aspirin 81 3-0 Yes 81mg Take 1 Unive rs mg chewable 7-26 tablet by ity of tablet 09:55: mouth in [place] 56 the Medical morning. Branch aspirin 81 3-0 Yes 81mg Take 1 Unive rs mg chewable 7-26 tablet by ity of tablet 09:55: mouth in [place] [address] the Medical morning. Branch aspirin 81 3-0 Yes 81mg Take 1 Unive rs mg chewable 7-26 tablet by ity of tablet 09:55: mouth in [place] 56 the Medical morning. Branch aspirin 81 3-0 Yes 81mg Take 1 Unive rs mg chewable 7-26 tablet by ity of tablet 09:55: mouth in [place] 56 the Medical morning. Branch aspirin 81 3-0 Yes 81mg Take 1 Unive rs mg chewable 7-14 tablet by ity of tablet 13:07: mouth in [place] [address] the Medical morning. Branch aspirin 81 2022-0 Yes 81mg Take 1 Unive rs mg chewable 7-14 tablet by ity of tablet 13:07: mouth in [place] [address] the Medical morning. Branch aspirin 81 3-0 Yes 81mg Take 1 Unive rs mg chewable 7-14 tablet by ity of tablet 13:07: mouth in [place] [address] the Medical morning. Branch aspirin 81 2022-0 Yes 81mg Take 1 Unive rs mg chewable 7-14 tablet by ity of tablet 13:07: mouth in [place] [address] the Medical morning. Branch aspirin 81 2022-0 Yes 81mg Take 1 Unive rs mg chewable 7-14 tablet by ity of tablet 13:07: mouth in [place] [address] the Medical morning. Branch aspirin 81 2022-0 Yes 81mg Take 1 Unive rs mg chewable 7-14 tablet by ity of tablet 13:07: mouth in [place] [address] the Medical morning. Branch tamsulosin 2022-0 Yes [id number] .4mg Take 1 Univers 0.4 mg 24 7-14 01 capsule by ity of hr capsule 00:00: mouth at [place] 00 bedtime. Medical Branch lisinopriL 2022-0 Yes [id number] 20mg Take 1 U nivers 20 mg 7-14 tablet by ity of tablet 00:00: mouth in [place] [address] the Medical morning. Branch amLODIPine 2022-0 Yes [id number] 7.5mg Take 1.5 Univers 5 mg tablet 7-14 tablets by it y of 00:00: mouth in [place] [address] the Medical morning. Branch atorvastati 2022-0 Yes [id number] 40mg Take 1 Univers n (LIPITOR) 7-14 tablet by ity of 40 mg 00:00: mouth at [place] tablet 00 bedtime. Medical Branch carvediloL 2022-0 Yes [id number] 6.25mg Take 1 Univers 6.25 mg 7-14 tablet by ity of tablet 00:00: mouth in [place] [address] the Medical morning Branch and 1 tablet in the evening. Take with meals. tamsulosin 2022-0 Yes [id number] .4mg Take 1 Univers 0.4 mg 24 7-14 01 capsule by ity of hr capsule 00:00: mouth at [place] 00 bedtime. Medical Branch lisinopriL 2022-0 Yes [id number] 20mg Take 1 U nivers 20 mg 7-14 tablet by ity of tablet 00:00: mouth in [place] 00 the Medical morning. Branch amLODIPine 2022-0 Yes [id number] 7.5mg Take 1.5 Univers 5 mg tablet 7-14 tablets by it y of 00:00: mouth in [place] 00 the Medical morning. Branch atorvastati 2022-0 Yes [id number] 40mg Take 1 Univers n (LIPITOR) 7-14 tablet by ity of 40 mg 00:00: mouth at [place] tablet 00 bedtime. Medical Branch carvediloL 2022-0 Yes [id number] 6.25mg Take 1 Univers 6.25 mg 7-14 tablet by ity of tablet 00:00: mouth in [place] 00 the Medical morning Branch and 1 tablet in the evening. Take with meals. tamsulosin 2022-0 Yes [id number] .4mg Take 1 Univers 0.4 mg 24 7-14 01 capsule by ity of hr capsule 00:00: mouth at [place] 00 bedtime. Medical Branch lisinopriL 2022-0 Yes [id number] 20mg Take 1 U nivers 20 mg 7-14 tablet by ity of tablet 00:00: mouth in [place] 00 the Medical morning. Branch amLODIPine 2022-0 Yes [id number] 7.5mg Take 1.5 Univers 5 mg tablet 7-14 tablets by it y of 00:00: mouth in [place] the Medical morning. Branch atorvastati 2022-0 Yes [id number] 40mg Take 1 Univers n (LIPITOR) 7-14 tablet by ity of 40 mg 00:00: mouth at [place] tablet 00 bedtime. Medical Branch carvediloL 2022-0 Yes [id number] 6.25mg Take 1 Univers 6.25 mg 7-14 tablet by ity of tablet 00:00: mouth in [place] 00 the Medical morning Branch and 1 tablet in the evening. Take with meals. tamsulosin 3-0 Yes [id number] .4mg Take 1 Univers 0.4 mg 24 7-14 01 capsule by ity of hr capsule 00:00: mouth at [place] 00 bedtime. Medical Branch lisinopriL 2022-0 Yes [id number] 20mg Take 1 U nivers 20 mg 7-14 tablet by ity of tablet 00:00: mouth in [place] 00 the Medical morning. Branch amLODIPine 2022-0 Yes [id number] 7.5mg Take 1.5 Univers 5 mg tablet 7-14 tablets by it y of 00:00: mouth in [place] 00 the Medical morning. Branch atorvastati 2022-0 Yes [id number] 40mg Take 1 Univers n (LIPITOR) 7-14 tablet by ity of 40 mg 00:00: mouth at [place] tablet 00 bedtime. Medical Branch carvediloL 2022-0 Yes [id number] 6.25mg Take 1 Univers 6.25 mg 7-14 tablet by ity of tablet 00:00: mouth in [place] 00 the Medical morning Branch and 1 tablet in the evening. Take with meals. tamsulosin 2022-0 Yes [id number] .4mg Take 1 Univers 0.4 mg 24 7-14 01 capsule by ity of hr capsule 00:00: mouth at [place] 00 bedtime. Medical Branch lisinopriL 2022-0 Yes [id number] 20mg Take 1 U nivers 20 mg 7-14 tablet by ity of tablet 00:00: mouth in [place] 00 the Medical morning. Branch amLODIPine 2022-0 Yes [id number] 7.5mg Take 1.5 Univers 5 mg tablet 7-14 tablets by it y of 00:00: mouth in [place] 00 the Medical morning. Branch atorvastati 2022-0 Yes [id number] 40mg Take 1 Univers n (LIPITOR) 7-14 tablet by ity of 40 mg 00:00: mouth at [place] tablet 00 bedtime. Medical Branch carvediloL 2022-0 Yes [id number] 6.25mg Take 1 Univers 6.25 mg 7-14 tablet by ity of tablet 00:00: mouth in [place] 00 the Medical morning Branch and 1 tablet in the evening. Take with meals. tamsulosin 3-0 Yes [id number] .4mg Take 1 Univers 0.4 mg 24 7-14 01 capsule by ity of hr capsule 00:00: mouth at [place] 00 bedtime. Medical Branch lisinopriL 2022-0 Yes [id number] 20mg Take 1 U nivers 20 mg 7-14 tablet by ity of tablet 00:00: mouth in [place] 00 the Medical morning. Branch amLODIPine 2022-0 Yes [id number] 7.5mg Take 1.5 Univers 5 mg tablet 7-14 tablets by it y of 00:00: mouth in [place] 00 the Medical morning. Branch atorvastati 2022-0 Yes [id number] 40mg Take 1 Univers n (LIPITOR) 7-14 tablet by ity of 40 mg 00:00: mouth at [place] tablet 00 bedtime. Medical Branch carvediloL 2022-0 Yes [id number] 6.25mg Take 1 Univers 6.25 mg 7-14 tablet by ity of tablet 00:00: mouth in [place] 00 the Medical morning Branch and 1 tablet in the evening. Take with meals. tamsulosin 2022-0 Yes [id number] .4mg Take 1 Univers 0.4 mg 24 7-14 01 capsule by ity of hr capsule 00:00: mouth at [place] 00 bedtime. Medical Branch lisinopriL 2022-0 Yes [id number] 20mg Take 1 U nivers 20 mg 7-14 tablet by ity of tablet 00:00: mouth in [place] 00 the Medical morning. Branch amLODIPine 2022-0 Yes [id number] 7.5mg Take 1.5 Univers 5 mg tablet 7-14 tablets by it y of 00:00: mouth in [place] 00 the Medical morning. Branch atorvastati 2022-0 Yes [id number] 40mg Take 1 Univers n (LIPITOR) 7-14 tablet by ity of 40 mg 00:00: mouth at [place] tablet 00 bedtime. Medical Branch carvediloL 2022-0 Yes [id number] 6.25mg Take 1 Univers 6.25 mg 7-14 tablet by ity of tablet 00:00: mouth in [place] 00 the Medical morning Branch and 1 tablet in the evening. Take with meals. tamsulosin 2022-0 Yes [id number] .4mg Take 1 Univers 0.4 mg 24 7-14 01 capsule by ity of hr capsule 00:00: mouth at [place] 00 bedtime. Medical Branch lisinopriL 2022-0 Yes [id number] 20mg Take 1 U nivers 20 mg 7-14 tablet by ity of tablet 00:00: mouth in [place] 00 the Medical morning. Branch amLODIPine 2022-0 Yes [id number] 7.5mg Take 1.5 Univers 5 mg tablet 7-14 tablets by it y of 00:00: mouth in [place] 00 the Medical morning. Branch atorvastati 2022-0 Yes [id number] 40mg Take 1 Univers n (LIPITOR) 7-14 tablet by ity of 40 mg 00:00: mouth at [place] tablet 00 bedtime. Medical Branch carvediloL 2022-0 Yes [id number] 6.25mg Take 1 Univers 6.25 mg 7-14 tablet by ity of tablet 00:00: mouth in [place] 00 the Medical morning Branch and 1 tablet in the evening. Take with meals. tamsulosin 2022-0 Yes [id number] .4mg Take 1 Univers 0.4 mg 24 7-14 01 capsule by ity of hr capsule 00:00: mouth at [place] 00 bedtime. Medical Branch lisinopriL 2022-0 Yes [id number] 20mg Take 1 U nivers 20 mg 7-14 tablet by ity of tablet 00:00: mouth in [place] 00 the Medical morning. Branch amLODIPine 2022-0 Yes [id number] 7.5mg Take 1.5 Univers 5 mg tablet 7-14 tablets by it y of 00:00: mouth in [place] 00 the Medical morning. Branch atorvastati 2022-0 Yes [id number] 40mg Take 1 Univers n (LIPITOR) 7-14 tablet by ity of 40 mg 00:00: mouth at [place] tablet 00 bedtime. Medical Branch carvediloL 2022-0 Yes [id number] 6.25mg Take 1 Univers 6.25 mg 7-14 tablet by ity of tablet 00:00: mouth in [place] 00 the Medical morning Branch and 1 tablet in the evening. Take with meals. tamsulosin 2022-0 Yes [id number] .4mg Take 1 Univers 0.4 mg 24 7-14 01 capsule by ity of hr capsule 00:00: mouth at [place] 00 bedtime. Medical Branch lisinopriL 2022-0 Yes [id number] 20mg Take 1 U nivers 20 mg 7-14 tablet by ity of tablet 00:00: mouth in [place] 00 the Medical morning. Branch amLODIPine 2022-0 Yes [id number] 7.5mg Take 1.5 Univers 5 mg tablet 7-14 tablets by it y of 00:00: mouth in [place] 00 the Medical morning. Branch atorvastati 2022-0 Yes [id number] 40mg Take 1 Univers n (LIPITOR) 7-14 tablet by ity of 40 mg 00:00: mouth at [place] tablet 00 bedtime. Medical Branch carvediloL 2022-0 Yes [id number] 6.25mg Take 1 Univers 6.25 mg 7-14 tablet by ity of tablet 00:00: mouth in [place] 00 the Medical morning Branch and 1 tablet in the evening. Take with meals. tamsulosin 2022-0 Yes [id number] .4mg Take 1 Univers 0.4 mg 24 7-14 01 capsule by ity of hr capsule 00:00: mouth at [place] 00 bedtime. Medical Branch lisinopriL 2022-0 Yes [id number] 20mg Take 1 U nivers 20 mg 7-14 tablet by ity of tablet 00:00: mouth in [place] 00 the Medical morning. Branch amLODIPine 2022-0 Yes [id number] 7.5mg Take 1.5 Univers 5 mg tablet 7-14 tablets by it y of 00:00: mouth in [place] 00 the Medical morning. Branch atorvastati 2022-0 Yes [id number] 40mg Take 1 Univers n (LIPITOR) 7-14 tablet by ity of 40 mg 00:00: mouth at [place] tablet 00 bedtime. Medical Branch carvediloL 2022-0 Yes [id number] 6.25mg Take 1 Univers 6.25 mg 7-14 tablet by ity of tablet 00:00: mouth in [place] the Medical morning Branch and 1 tablet in the evening. Take with meals. tamsulosin 2022-0 Yes [id number] .4mg Take 1 Univers 0.4 mg 24 7-14 01 capsule by ity of hr capsule 00:00: mouth at [place] 00 bedtime. Medical Branch lisinopriL 2022-0 Yes [id number] 20mg Take 1 U nivers 20 mg 7-14 tablet by ity of tablet 00:00: mouth in [place] 00 the Medical morning. Branch amLODIPine 2022-0 Yes [id number] 7.5mg Take 1.5 Univers 5 mg tablet 7-14 tablets by it y of 00:00: mouth in [place] 00 the Medical morning. Branch atorvastati 2022-0 Yes [id number] 40mg Take 1 Univers n (LIPITOR) 7-14 tablet by ity of 40 mg 00:00: mouth at [place] tablet 00 bedtime. Medical Branch carvediloL 2022-0 Yes [id number] 6.25mg Take 1 Univers 6.25 mg 7-14 tablet by ity of tablet 00:00: mouth in [place] 00 the Medical morning Branch and 1 tablet in the evening. Take with meals. tamsulosin Yes [id number] .4mg Take 1 Univers 0.4 mg 24 7-14 01 capsule by ity of hr capsule 00:00: mouth at [place] 00 bedtime. Medical Branch lisinopriL 0 Yes [id number] 20mg Take 1 U nivers 20 mg 7-14 tablet by ity of tablet 00:00: mouth in [place] 00 the Medical morning. Branch amLODIPine Yes [id number] 7.5mg Take 1.5 Univers 5 mg tablet 7-14 tablets by it y of 00:00: mouth in [place] 00 the morning. Branch atorvastati Yes [id number] 40mg Take 1 Univers n (LIPITOR) 7-14 tablet by ity of 40 mg 00:00: mouth at [place] tablet 00 bedtime. Medical Branch carvediloL Yes [id number] 6.25mg Take 1 Univers 6.25 mg 7-14 tablet by ity of tablet 00:00: mouth in [place] 00 the Medical morning Branch and 1 tablet in the evening. Take with meals. ferrous 2021-04 Yes [id number] 324mg Take 1 Uni vers sulfate 324 1-04 tablet by ity of mg (65 mg 00:00: mouth [place] iron) EC 00 daily with Medic al tablet breakfast. Branch ferrous 2021-04 Yes [id number] 324mg Take 1 Uni vers sulfate 324 1-04 tablet by ity of mg (65 mg 00:00: mouth [place] iron) EC 00 daily with Medic al tablet breakfast. Branch ferrous 2021-04 Yes [id number] 324mg Take 1 Uni vers sulfate 324 1-04 tablet by ity of mg (65 mg 00:00: mouth [place] iron) EC 00 daily with Medic al tablet breakfast. Branch ferrous 2021-04 Yes [id number] 324mg Take 1 Uni vers sulfate 324 1-04 tablet by ity of mg (65 mg 00:00: mouth [place] iron) EC 00 daily with Medic al tablet breakfast. Branch ferrous 2021-04 Yes [id number] 324mg Take 1 Uni vers sulfate 324 1-04 tablet by ity of mg (65 mg 00:00: mouth [place] iron) EC 00 daily with Medic al tablet breakfast. Branch ferrous 2021-04 Yes [id number] 324mg Take 1 Uni vers sulfate 324 1-04 tablet by ity of mg (65 mg 00:00: mouth [place] iron) EC 00 daily with Medic al tablet breakfast. Branch ferrous 2021-04 Yes [id number] 324mg Take 1 Uni vers sulfate 324 1-04 tablet by ity of mg (65 mg 00:00: mouth [place] iron) EC 00 daily with Medic al tablet breakfast. Branch ferrous 2021-04 Yes [id number] 324mg Take 1 Uni vers sulfate 324 1-04 tablet by ity of mg (65 mg 00:00: mouth [place] iron) EC 00 daily with Medic al tablet breakfast. Branch ferrous 2021-04 Yes [id number] 324mg Take 1 Uni vers sulfate 324 1-04 tablet by ity of mg (65 mg 00:00: mouth [place] iron) EC 00 daily with Medic al tablet breakfast. Branch ferrous 2021-04 Yes [id number] 324mg Take 1 Uni vers sulfate 324 1-04 tablet by ity of mg (65 mg 00:00: mouth [place] iron) EC 00 daily with Medic al tablet breakfast. Branch ferrous 2021-04 Yes [id number] 324mg Take 1 Uni vers sulfate 324 1-04 tablet by ity of mg (65 mg 00:00: mouth [place] iron) EC 00 daily with Medic al tablet breakfast. Branch ferrous 2021-04 Yes [id number] 324mg Take 1 Uni vers sulfate 324 1-04 tablet by ity of mg (65 mg 00:00: mouth [place] iron) EC 00 daily with Medic al tablet breakfast. Branch ferrous 2021-04 Yes [id number] 324mg Take 1 Uni vers sulfate 324 1-04 tablet by ity of mg (65 mg 00:00: mouth [place] iron) EC 00 daily with Medic al tablet breakfast. Branch ferrous 2021-04 Yes [id number] 324mg Take 1 Uni vers sulfate 324 1-04 tablet by ity of mg (65 mg 00:00: mouth [place] iron) EC 00 daily with Medic al tablet breakfast. Branch ferrous 2021-04 Yes [id number] 324mg Take 1 Uni vers sulfate 324 1-04 tablet by ity of mg (65 mg 00:00: mouth [place] iron) EC 00 daily with Medic al tablet breakfast. Branch ferrous 2021-04 Yes [id number] 324mg Take 1 Uni vers sulfate 324 1-04 tablet by ity of mg (65 mg 00:00: mouth [place] iron) EC 00 daily with Medic al tablet breakfast. Branch tamsulosin 2021-04 Yes [id number] .4mg Take 1 Univers 0.4 mg 24 0-31 capsule by ity of hr capsule 00:00: mouth at [place] 00 bedtime. Medical Branch tamsulosin 2021-04 Yes [id number] .4mg Take 1 Univers 0.4 mg 24 0-31 capsule by ity of hr capsule 00:00: mouth at [place] 00 bedtime. Medical Branch tamsulosin 2021-04 Yes [id number] .4mg Take 1 Univers 0.4 mg 24 0-31 capsule by ity of hr capsule 00:00: mouth at [place] 00 bedtime. Medical Branch tamsulosin 2021-04 Yes [id number] .4mg Take 1 Univers 0.4 mg 24 0-31 capsule by ity of hr capsule 00:00: mouth at [place] 00 bedtime. Medical Branch tamsulosin 2021-04 Yes [id number] .4mg Take 1 Univers 0.4 mg 24 0-31 capsule by ity of hr capsule 00:00: mouth at [place] 00 bedtime. Medical Branch tamsulosin 2021-04 Yes [id number] .4mg Take 1 Univers 0.4 mg 24 0-31 capsule by ity of hr capsule 00:00: mouth at [place] 00 bedtime. Medical Branch tamsulosin 2021-04 Yes [id number] .4mg Take 1 Univers 0.4 mg 24 0-31 capsule by ity of hr capsule 00:00: mouth at [place] 00 bedtime. Medical Branch tamsulosin 2021-04 Yes [id number] .4mg Take 1 Univers 0.4 mg 24 0-31 capsule by ity of hr capsule 00:00: mouth at [place] 00 bedtime. Medical Branch tamsulosin 2021-04 Yes [id number] .4mg Take 1 Univers 0.4 mg 24 0-31 capsule by ity of hr capsule 00:00: mouth at [place] 00 bedtime. Medical Branch tamsulosin 2021-04- No [id number] .4mg Take 1 Univers 0.4 mg 24 0-31 07-14 capsule by ity of hr capsule 00:00: 00:00 mouth at [place] :00 bedtime. Medical Branch tamsulosin 2021-04 2023- No [id number] .4mg Take 1 Univers 0.4 mg 24 0-31 07-14 capsule by ity of hr capsule 00:00: 00:00 mouth at [place] 00 :00 bedtime. Medical Branch tiZANidine 2021-04 Yes [id number] 4mg Take 1 Univers 4 mg tablet 0-21 tablet by ity of 00:00: mouth [place] 00 every 8 Medical (eight) Branch hours as needed (muscle pain or spasm). tiZANidine 2021-04 Yes [id number] 4mg Take 1 Univers 4 mg tablet 0-21 tablet by ity of 00:00: mouth [place] 00 every 8 Medical (eight) Branch hours as needed (muscle pain or spasm). tiZANidine 2021-04 Yes [id number] 4mg Take 1 Univers 4 mg tablet 0-21 tablet by ity of 00:00: mouth [place] 00 every 8 Medical (eight) Branch hours as needed (muscle pain or spasm). tiZANidine 2021-04 Yes [id number] 4mg Take 1 Univers 4 mg tablet 0-21 tablet by ity of 00:00: mouth [place] 00 every 8 Medical (eight) Branch hours as needed (muscle pain or spasm). tiZANidine 2021-04 Yes [id number] 4mg Take 1 Univers 4 mg tablet 0-21 tablet by ity of 00:00: mouth [place] 00 every 8 Medical (eight) Branch hours as needed (muscle pain or spasm). tiZANidine 2021-04 Yes [id number] 4mg Take 1 Univers 4 mg tablet 0-21 tablet by ity of 00:00: mouth [place] 00 every 8 Medical (eight) Branch hours as needed (muscle pain or spasm). tiZANidine 2021-04 Yes [id number] 4mg Take 1 Univers 4 mg tablet 0-21 tablet by ity of 00:00: mouth [place] 00 every 8 Medical (eight) Branch hours as needed (muscle pain or spasm). tiZANidine 2021-04 Yes [id number] 4mg Take 1 Univers 4 mg tablet 0-21 tablet by ity of 00:00: mouth [place] 00 every 8 Medical (eight) Branch hours as needed (muscle pain or spasm). tiZANidine 2021-04 Yes [id number] 4mg Take 1 Univers 4 mg tablet 0-21 tablet by ity of 00:00: mouth [place] 00 every 8 Medical (eight) Branch hours as needed (muscle pain or spasm). tiZANidine 2021-04 Yes [id number] 4mg Take 1 Univers 4 mg tablet 0-21 tablet by ity of 00:00: mouth [place] 00 every 8 Medical (eight) Branch hours as needed (muscle pain or spasm). tiZANidine 2021-04 Yes [id number] 4mg Take 1 Univers 4 mg tablet 0-21 tablet by ity of 00:00: mouth [place] 00 every 8 Medical (eight) Branch hours as needed (muscle pain or spasm). tiZANidine 2021-04 Yes [id number] 4mg Take 1 Univers 4 mg tablet 0-21 tablet by ity of 00:00: mouth [place] 00 every 8 Medical (eight) Branch hours as needed (muscle pain or spasm). tiZANidine 2021-04 Yes [id number] 4mg Take 1 Univers 4 mg tablet 0-21 tablet by ity of 00:00: mouth [place] 00 every 8 Medical (eight) Branch hours as needed (muscle pain or spasm). tiZANidine 2021-04 Yes [id number] 4mg Take 1 [facility] 4 mg tablet 0-21 tablet by [facility] 00:00: mouth [place] 00 every 8 Medical (eight) Branch hours as needed (muscle pain or spasm). tiZANidine 2021-04 Yes [id number] 4mg Take 1 [facility] 4 mg tablet 0-21 tablet by [facility] 00:00: mouth [place] 00 every 8 Medical (eight) Branch hours as needed (muscle pain or spasm). tiZANidine 2021-04 Yes [id number] 4mg Take 1 [facility] 4 mg tablet 0-21 tablet by [facility] 00:00: mouth [place] 00 every 8 Medical (eight) Branch hours as needed (muscle pain or spasm). tiZANidine 2021-04 Yes [id number] 4mg Take 1 [facility] 4 mg tablet 0-21 tablet by [facility] 00:00: mouth [place] 00 every 8 Medical (eight) Branch hours as needed (muscle pain or spasm). tiZANidine 2021-04 Yes [id number] 4mg Take 1 [facility] 4 mg tablet 0-21 tablet by [facility] 00:00: mouth [place] 00 every 8 Medical (eight) Branch hours as needed (muscle pain or spasm). tiZANidine 2021-04 Yes [id number] 4mg Take 1 [facility] 4 mg tablet 0-21 tablet by [facility] 00:00: mouth [place] 00 every 8 Medical (eight) Branch hours as needed (muscle pain or spasm). tiZANidine 2021-04 Yes [id number] 4mg Take 1 [facility] 4 mg tablet 0-21 tablet by [facility] 00:00: mouth [place] 00 every 8 Medical (eight) Branch hours as needed (muscle pain or spasm). tiZANidine 2021-04 Yes [id number] 4mg Take 1 [facility] 4 mg tablet 0-21 tablet by [facility] 00:00: mouth [place] 00 every 8 Medical (eight) Branch hours as needed (muscle pain or spasm). tiZANidine 2021-04 Yes [id number] 4mg Take 1 [facility] 4 mg tablet 0-21 tablet by [facility] 00:00: mouth [place] 00 every 8 Medical (eight) Branch hours as needed (muscle pain or spasm). tiZANidine 2021-04 Yes [id number] 4mg Take 1 [facility] 4 mg tablet 0-21 tablet by [facility] 00:00: mouth [place] 00 every 8 Medical (eight) Branch hours as needed (muscle pain or spasm). tiZANidine 2021-04 Yes [id number] 4mg Take 1 [facility] 4 mg tablet 0-21 tablet by [facility] 00:00: mouth [place] 00 every 8 Medical (eight) Branch hours as needed (muscle pain or spasm). tiZANidine 2021-04 Yes [id number] 4mg Take 1 [facility] 4 mg tablet 0-21 tablet by [facility] 00:00: mouth [place] 00 every 8 Medical (eight) Branch hours as needed (muscle pain or spasm). LISINOPRIL 2021-0 Yes [id number] Take 1 [facility] 20 mg 2-07 tablet by [facility] tablet 00:00: mouth once [place] 00 daily Medical Branch LISINOPRIL 2-0 Yes [id number] Take 1 [facility] 20 mg 2-07 tablet by [facility] tablet 00:00: mouth once [place] 00 daily Medical Branch LISINOPRIL 2022-0 Yes [id number] Take 1 [facility] 20 mg 2-07 tablet by [facility] tablet 00:00: mouth once [place] 00 daily Medical Branch LISINOPRIL 2022-0 Yes [id number] Take 1 [facility] 20 mg 2-07 tablet by [facility] tablet 00:00: mouth once daily Medical Branch LISINOPRIL 2022-0 Yes [id number] Take 1 [facility] 20 mg 2-07 tablet by [facility] tablet 00:00: mouth once daily Medical Branch LISINOPRIL 2022-0 Yes [id number] Take 1 [facility] 20 mg 2-07 tablet by [facility] tablet 00:00: mouth once daily Medical Branch LISINOPRIL 2022-0 Yes [id number] Take 1 [facility] 20 mg 2-07 tablet by [facility] tablet 00:00: mouth once daily Medical Branch LISINOPRIL 2022-0 Yes [id number] Take 1 [facility] 20 mg 2-07 tablet by [facility] tablet 00:00: mouth once daily Medical Branch LISINOPRIL 2022-0 Yes [id number] Take 1 [facility] 20 mg 2-07 tablet by [facility] tablet 00:00: mouth once daily Medical Branch LISINOPRIL 2022-0 Yes [id number] Take 1 [facility] 20 mg 2-07 tablet by [facility] tablet 00:00: mouth once daily Medical Branch LISINOPRIL 2022-0 Yes [id number] Take 1 [facility] 20 mg 2-07 tablet by [facility] tablet 00:00: mouth once daily [facility] Branch LISINOPRIL 2022-0 Yes [id number] Take 1 [facility] 20 mg 2-07 tablet by [facility] tablet 00:00: mouth once daily [facility] Branch LISINOPRIL 2022-0 Yes [id number] Take 1 [facility] 20 mg 2-07 tablet by [facility] tablet 00:00: mouth once daily [facility] Branch LISINOPRIL 2022-0 Yes [id number] Take 1 [facility] 20 mg 2-07 tablet by [facility] tablet 00:00: mouth once daily Medical Branch LISINOPRIL 2022-0 Yes [id number] Take 1 [facility] 20 mg 2-07 tablet by [facility] tablet 00:00: mouth once daily [facility] LISINOPRIL 2022-0 2023- No [id number] Take 1 [facility] 20 mg 2-07 07-14 tablet by [facility] tablet 00:00: 00:[place] mouth [place] 00 :[place] daily [facility] LISINOPRIL 2021-0 3- No [id number] Take 1 [facility] 20 mg 05-11 tablet by [facility] tablet 00:00: 00:[place] mouth [place] 00 :00 daily [facility] aspirin 81 2020-0 Yes 81mg QD Take [address] [facility] chewable 8-05 by [facility] tablet 14:02: daily. [place] [address] [facility] aspirin 81 2020-0 Yes 81mg QD Take [address] [facility] chewable 8-05 by [facility] tablet 14:02: daily. [place] [address] [facility] aspirin 81 2020-0 Yes 81mg QD Take [address] [facility] chewable 8-05 by [facility] tablet 14:02: daily. [place] [address] [facility] amLODIPine 2020-0 Yes 7.5mg QD Take 7.[address] [facility] [address] [facility] (NORVASC) 5 6-01 mg [facility] tablet 00:[facility]: mouth [facility] 00 daily. Center tiZANidine 2020-0 Yes 4mg Take [address] [facility] (ZANAFLEX) 6-01 [facility] tablet 00:00: every 8 [facility] 00 (eight) Center hours as needed. amLODIPine 2020-0 Yes 7.5mg QD Take 7.[address] [facility] [address] [facility] (NORVASC) 5 6-01 mg [facility] tablet 00:00: mouth [facility] 00 daily. Center tiZANidine 2020-0 Yes 4mg Take [address] [facility] [address] [facility] (ZANAFLEX) 6-01 [facility] tablet 00:00: every 8 [facility] 00 (eight) Center hours as needed. amLODIPine 2020-0 Yes 7.5mg QD Take 7.[address] [facility] [address] [facility] (NORVASC) 5 6-01 mg [facility] tablet 00:00: mouth [facility] 00 daily. Center tiZANidine 2020-0 Yes 4mg Take [address] [facility] [address] [facility] (ZANAFLEX) 6-01 [facility] tablet 00:00: every 8 [facility] 00 (eight) Center hours as needed. amLODIPine 2020-0 Yes [id number] 7.5mg Take 1.5 [facility] 5 mg tablet 6-01 tablets by [facility] of 00:00: mouth [place] daily. Medical Branch amLODIPine 2020-0 Yes [id number] 7.5mg Take 1.5 [facility] 5 mg tablet 6-01 tablets by [facility] of 00:00: mouth [place] 00 daily. [facility] Branch amLODIPine 2020-0 Yes [id number] 7.5mg Take 1.5 [facility] 5 mg tablet 6-01 tablets by [facility] of 00:00: mouth [place] 00 daily. [facility] Branch amLODIPine 2020-0 Yes [id number] 7.5mg Take 1.5 [facility] 5 mg tablet 6-01 tablets by [facility] of 00:00: mouth [place] 00 daily. [facility] amLODIPine 2020-0 Yes [id number] 7.5mg Take 1.5 [facility] 5 mg tablet 6-01 tablets by [facility] of 00:00: mouth [place] 00 daily. [facility] amLODIPine 2020-0 Yes [id number] 7.5mg Take 1.5 [facility] 5 mg tablet 6-01 tablets by [facility] of 00:00: mouth [place] 00 daily. Medical Branch tiZANidine 2020-0 Yes [id number] 4mg Take 1 [facility] 4 mg tablet 6-01 tablet by [facility] 00:00: mouth [place] 00 every 8 Medical (eight) Branch hours as needed (muscle pain or spasm). amLODIPine 2020-0 Yes [id number] 7.5mg Take 1.5 [facility] 5 mg tablet 6-01 tablets by [facility] of 00:00: mouth [place] 00 daily. [facility] tiZANidine 2020-0 Yes [id number] 4mg Take 1 [facility] 4 mg tablet 6-01 tablet by [facility] of 00:00: mouth [place] 00 every 8 Medical (eight) Branch hours as needed (muscle pain or spasm). amLODIPine 2020-0 Yes [id number] 7.5mg Take 1.5 [facility] 5 mg tablet 6-01 tablets by [facility] of 00:00: mouth [place] 00 daily. [facility] tiZANidine 2020-0 Yes [id number] 4mg Take 1 [facility] 4 mg tablet 6-01 tablet by [facility] 00:00: mouth [place] 00 every 8 Medical (eight) Branch hours as needed (muscle pain or spasm). amLODIPine 2020-0 Yes [id number] 7.5mg Take 1.5 [facility] 5 mg tablet 6-01 tablets by [facility] of 00:00: mouth [place] 00 daily. [facility] Branch tiZANidine 2020-0 Yes [id number] 4mg Take 1 [facility] 4 mg tablet 6-01 tablet by [facility] 00:00: mouth [place] 00 every 8 Medical (eight) Branch hours as needed (muscle pain or spasm). amLODIPine 2020-0 Yes [id number] 7.5mg Take 1.5 [facility] 5 mg tablet 6-01 tablets by [facility] of 00:00: mouth [place] 00 daily. Medical Branch tiZANidine 2020-0 Yes [id number] 4mg Take 1 [facility] 4 mg tablet 6-01 tablet by [facility] 00:00: mouth [place] 00 every 8 Medical (eight) Branch hours as needed (muscle pain or spasm). amLODIPine 2020-0 Yes [id number] 7.5mg Take 1.5 [facility] 5 mg tablet 6-01 tablets by [facility] of 00:00: mouth [place] 00 daily. Medical Branch tiZANidine 2020-0 Yes [id number] 4mg Take 1 [facility] 4 mg tablet 6-01 tablet by [facility] 00:00: mouth [place] 00 every 8 Medical (eight) Branch hours as needed (muscle pain or spasm). amLODIPine 2020-0 Yes [id number] 7.5mg Take 1.5 [facility] 5 mg tablet 6-01 tablets by [facility] of 00:00: mouth [place] 00 daily. Medical Branch tiZANidine 2020-0 Yes [id number] 4mg Take 1 [facility] 4 mg tablet 6-01 tablet by [facility] 00:00: mouth [place] 00 every 8 Medical (eight) Branch hours as needed (muscle pain or spasm). amLODIPine 2020-0 Yes [id number] 7.5mg Take 1.5 [facility] 5 mg tablet 6-01 tablets by [facility] of 00:00: mouth [place] 00 daily. Medical Branch tiZANidine 2020-0 Yes [id number] 4mg Take 1 [facility] 4 mg tablet 6-01 tablet by [facility] 00:00: mouth [place] 00 every 8 Medical (eight) Branch hours as needed (muscle pain or spasm). amLODIPine 2020-0 Yes [id number] 7.5mg Take 1.5 [facility] 5 mg tablet 6-01 tablets by [facility] of 00:00: mouth [place] 00 daily. Medical Branch tiZANidine 2020-0 Yes [id number] 4mg Take 1 [facility] 4 mg tablet 6-01 tablet by [facility] 00:00: mouth [place] 00 every 8 Medical (eight) Branch hours as needed (muscle pain or spasm). amLODIPine 2020-0 Yes [id number] 7.5mg Take 1.5 [facility] 5 mg tablet 6-01 tablets by [facility] of 00:00: mouth [place] 00 daily. Medical Branch tiZANidine 2020-0 Yes [id number] 4mg Take 1 [facility] 4 mg tablet 6-01 tablet by [facility] 00:00: mouth [place] 00 every 8 Medical (eight) Branch hours as needed (muscle pain or spasm). amLODIPine 2020-0 Yes [id number] 7.5mg Take 1.5 [facility] 5 mg tablet 6-01 tablets by [facility] of 00:00: mouth [place] 00 daily. Medical Branch tiZANidine 2020-0 Yes [id number] 4mg Take 1 [facility] 4 mg tablet 6-01 tablet by [facility] of 00:00: mouth [place] 00 every 8 Medical (eight) Branch hours as needed (muscle pain or spasm). amLODIPine 2020-0 Yes [id number] 7.5mg Take 1.5 [facility] 5 mg tablet 6-01 tablets by [facility] of 00:00: mouth [place] 00 daily. Medical Branch tiZANidine 2020-0 Yes [id number] 4mg Take 1 [facility] 4 mg tablet 6-01 tablet by [facility] 00:00: mouth [place] 00 every 8 Medical (eight) Branch hours as needed (muscle pain or spasm). amLODIPine 2020-0 Yes [id number] 7.5mg Take 1.5 [facility] 5 mg tablet 6-01 tablets by [facility] of 00:00: mouth [place] 00 daily. Medical Branch tiZANidine 2020-0 Yes [id number] 4mg Take 1 [facility] 4 mg tablet 6-01 tablet by [facility] of 00:00: mouth [place] 00 every 8 Medical (eight) Branch hours as needed (muscle pain or spasm). amLODIPine 2020-0 Yes [id number] 7.5mg Take 1.5 [facility] 5 mg tablet 6-01 tablets by [facility] y of 00:00: mouth [place] 00 daily. Medical Branch tiZANidine 2020-0 Yes [id number] 4mg Take 1 [facility] 4 mg tablet 6-01 tablet by [facility] 00:00: mouth [place] 00 every 8 Medical (eight) Branch hours as needed (muscle pain or spasm). amLODIPine 2020-0 Yes [id number] 7.5mg Take 1.5 [facility] 5 mg tablet 6-01 tablets by [facility] of 00:00: mouth [place] 00 daily. Medical Branch amLODIPine Yes [id number] 7.5mg Take 1.5 [facility] 5 mg tablet 6-01 tablets by [facility] y of 00:00: mouth [place] 00 daily. Medical Branch amLODIPine Yes [id number] 7.5mg Take 1.5 [facility] 5 mg tablet 6-01 tablets by [facility] y of 00:00: mouth [place] 00 daily. Medical Branch amLODIPine Yes [id number] 7.5mg Take 1.5 [facility] 5 mg tablet 6-01 tablets by it y of 00:00: mouth [place] 00 daily. Medical Branch amLODIPine Yes [id number] 7.5mg Take 1.5 [facility] 5 mg tablet 6-01 tablets by it y of 00:00: mouth [place] 00 daily. Medical Branch amLODIPine Yes [id number] 7.5mg Take 1.5 [facility] 5 mg tablet 6-01 tablets by it y of 00:00: mouth [place] 00 daily. Medical Branch amLODIPine 2022- No [id number] 7.5mg Take 1.5 [facility] 5 mg tablet 6-04 10-14 tablets by i ty of 00:00: 00:00 mouth [place] 00 :00 daily. Medical Branch amLODIPine 2022- No [id number] 7.5mg Take 1.5 [facility] 5 mg tablet 6-04 10-14 tablets by i ty of 00:00: 00:00 mouth [place] 00 :00 daily. Medical Branch tiZANidine 2021- No [id number] 4mg Take 1 [facility] 4 mg tablet 6-04 13-21 tablet by it y of 00:00: 00:00 mouth [place] 00 :00 every 8 Medical (eight) Branch hours as needed (muscle pain or spasm). tiZANidine 2021- No [id number] 4mg Take 1 [facility] 4 mg tablet 6- 10-21 tablet by it y of 00:00: 00:00 mouth [place] 00 :00 every 8 Medical (eight) Branch hours as needed (muscle pain or spasm). clindamycin 1- No [id number] 300mg Take 1 [facility] 300 mg 05-09 capsule by [facility] capsule 00:00: 05:59 mouth 4 [place] 00 :00 (four) Medical times Branch daily for 10 days. atorvastati 2019-04 Yes 40mg QD Take [address] [facility] (LIPITOR) 1-30 by mouth [facility] 40 MG 00:00: daily. [facility] tablet 00 [place] carvediloL 2019-04 Yes 6.25mg Q.5D Take 6.[address] [facility] (COREG) 1-30 [facility] 6.25 MG 00:00: mouth 2 [facility] tablet 00 (two) Center times daily. lisinopriL 2019-04 Yes 20mg QD Take [address] [facility] (PRINIVIL,Z 1-30 by mouth [facility] ESTRIL) 20 00:00: daily. Medic al MG tablet 00 [place] tamsulosin 2019-04 Yes .4mg QD Take 0.[address] [facility] (FLOMAX) 1-30 [facility] 0.4 mg Cap 00:00: mouth [facility] 24 hr 00 daily. [place] capsule atorvastati 2019-04 Yes 40mg QD Take [address] [facility] (LIPITOR) 1-30 by mouth [facility] 40 MG 00:00: daily. [facility] tablet 00 [place] carvediloL 2019-04 Yes 6.25mg Q.5D Take 6.[address] [facility] (COREG) 1-30 [facility] 6.25 MG 00:00: mouth 2 Medical tablet 00 (two) Center times daily. lisinopriL 2019-04 Yes 20mg QD Take [address] [facility] (PRINIVIL,Z 1-30 by [facility] ESTRIL) 20 00:00: daily. [facility] al MG tablet 00 [place] tamsulosin 2019-04 Yes .4mg QD Take 0.[address] [facility] (FLOMAX) 1-30 [facility] 0.4 mg Cap 00:00: mouth [facility] 24 hr 00 daily. [place] capsule atorvastati 2019-04 Yes 40mg QD Take [address] [facility] (LIPITOR) 1-30 by mouth [facility] 40 MG 00:00: daily. [facility] tablet 00 [place] carvediloL 2019-04 Yes 6.25mg Q.5D Take 6.[address] [facility] (COREG) 1-30 [facility] 6.25 MG 00:00: mouth 2 [facility] tablet 00 (two) Center times daily. lisinopriL 2019-04 Yes 20mg QD Take [address] [facility] (PRINIVIL,Z 1-30 by mouth [facility] ESTRIL) 20 00:00: daily. Medic al MG tablet 00 [place] tamsulosin 2019-04 Yes .4mg QD Take 0.[address] [facility] (FLOMAX) 1-30 [facility].4 mg Cap 00:00: mouth [facility] 24 hr 00 daily. [place] capsule carvediloL 2019-04 Yes [id number] 6.25mg Take 1 [facility] 6.25 mg 1-30 tablet by [facility] of tablet 00:00: mouth 2 [place] (two) Medical times Branch daily with meals. atorvastati 2019-04 Yes [id number] 40mg Take 1 [facility] n (LIPITOR) 1-30 tablet by [facility] 40 mg 00:00: mouth at [place] tablet 00 bedtime. Medical Branch carvediloL 2019-04 Yes [id number] 6.25mg Take 1 [facility] 6.25 mg 1-30 tablet by [facility] of tablet 00:00: mouth 2 (two) Medical times Branch daily with meals. atorvastati 2019-04 Yes [id number] 40mg Take 1 [facility] n (LIPITOR) 1-30 tablet by [facility] 40 mg 00:00: mouth at [place] tablet 00 bedtime. Medical Branch carvediloL 2019-04 Yes [id number] 6.25mg Take 1 [facility] 6.25 mg 1-30 tablet by [facility] of tablet 00:00: mouth 2 (two) Medical times Branch daily with meals. atorvastati 2019-04 Yes [id number] 40mg Take 1 [facility] n (LIPITOR) 1-30 tablet by [facility] 40 mg 00:00: mouth at [place] tablet 00 bedtime. Medical Branch carvediloL 2019-04 Yes [id number] 6.25mg Take 1 [facility] 6.25 mg 1-30 tablet by [facility] of tablet 00:00: mouth 2 (two) Medical times Branch daily with meals. atorvastati 2019-04 Yes [id number] 40mg Take 1 [facility] n (LIPITOR) 1-30 tablet by [facility] of 40 mg 00:00: mouth at [place] tablet 00 bedtime. Medical Branch carvediloL 2019-04 Yes [id number] 6.25mg Take 1 [facility] 6.25 mg 1-30 tablet by [facility] of tablet 00:00: mouth 2 (two) Medical times Branch daily with meals. atorvastati 2019-04 Yes [id number] 40mg Take 1 [facility] n (LIPITOR) 1-30 tablet by [facility] 40 mg 00:00: mouth at [place] tablet 00 bedtime. Medical Branch carvediloL 2019-04 Yes [id number] 6.25mg Take 1 [facility] 6.25 mg 1-30 tablet by [facility] tablet 00:00: mouth 2 (two) Medical times Branch daily with meals. atorvastati 2019-04 Yes [id number] 40mg Take 1 [facility] n (LIPITOR) 1-30 tablet by [facility] 40 mg 00:00: mouth at [place] tablet 00 bedtime. Medical Branch carvediloL 2019-04 Yes [id number] 6.25mg Take 1 [facility] 6.25 mg 1-30 tablet by [facility] tablet 00:00: mouth 2 (two) Medical times Branch daily with meals. lisinopriL 2019-04 Yes [id number] 20mg Take 1 [facility] 20 mg 1-30 tablet by [facility] tablet 00:00: mouth [place] 00 daily. Medical Branch tamsulosin 2019-04 Yes [id number] .4mg Take 1 [facility] 0.4 mg 24 1-30 capsule by [facility] hr capsule 00:00: mouth [place] 00 daily. [facility] Branch amLODIPine 2019-04 Yes [id number] 5mg Take 1 [facility] 5 mg tablet 1-30 tablet by [facility] 00:00: mouth [place] 00 daily. [facility] Branch atorvastati 2019-04 Yes [id number] 40mg Take 1 [facility] n (LIPITOR) 1-30 tablet by [facility] 40 mg 00:00: mouth at [place] tablet 00 bedtime. Medical Branch carvediloL 2019-04 Yes [id number] 6.25mg Take 1 [facility] 6.25 mg 1-30 tablet by [facility] tablet 00:00: mouth 2 (two) Medical times Branch daily with meals. lisinopriL 2019-04 Yes [id number] 20mg Take 1 [facility] 20 mg 1-30 tablet by [facility] tablet 00:00: mouth [place] 00 daily. [facility] Branch tamsulosin 2019-04 Yes [id number] .4mg Take 1 [facility] 0.4 mg 24 1-30 capsule by [facility] hr capsule 00:00: mouth [place] 00 daily. [facility] Branch amLODIPine 2019-04 Yes [id number] 5mg Take 1 [facility] 5 mg tablet 1-30 tablet by [facility] of 00:00: mouth [place] 00 daily. [facility] Branch atorvastati 2019- Yes [id number] 40mg Take 1 [facility] n (LIPITOR) 1-30 tablet by [facility] 40 mg 00:00: mouth at [place] tablet 00 bedtime. Medical Branch carvediloL 2019- Yes [id number] 6.25mg Take 1 [facility] 6.25 mg 1-30 tablet by [facility] tablet 00:00: mouth 2 [place] 00 (two) Medical times Branch daily with meals. lisinopriL 2019-04 Yes [id number] 20mg Take 1 [facility] 20 mg 1-30 tablet by [facility] tablet 00:00: mouth [place] 00 daily. [facility] Branch tamsulosin 2019-04 Yes [id number] .4mg Take 1 [facility] 0.4 mg 24 1-30 capsule by [facility] hr capsule 00:00: mouth [place] 00 daily. [facility] Branch amLODIPine 2019-04 Yes [id number] 5mg Take 1 [facility] 5 mg tablet 1-30 tablet by [facility] of 00:00: mouth [place] 00 daily. [facility] Branch atorvastati 2019-04 Yes [id number] 40mg Take 1 [facility] n (LIPITOR) 1-30 tablet by [facility] 40 mg 00:00: mouth at [place] tablet 00 bedtime. Medical Branch carvediloL 2019-04 Yes [id number] 6.25mg Take 1 [facility] 6.25 mg 1-30 tablet by [facility] tablet 00:00: mouth 2 [place] 00 (two) Medical times Branch daily with meals. lisinopriL 2019- Yes [id number] 20mg Take 1 [facility] 20 mg 1-30 tablet by [facility] tablet 00:00: mouth [place] 00 daily. [facility] Branch tamsulosin 2019-04 Yes [id number] .4mg Take 1 [facility] 0.4 mg 24 1-30 capsule by [facility] hr capsule 00:00: mouth [place] 00 daily. [facility] amLODIPine 2019-04 Yes [id number] 5mg Take 1 [facility] 5 mg tablet 1-30 tablet by [facility] 00:00: mouth [place] 00 daily. [facility] Branch atorvastati 2019-04 Yes [id number] 40mg Take 1 [facility] n (LIPITOR) 1-30 tablet by [facility] 40 mg 00:00: mouth at [place] tablet 00 bedtime. Medical Branch carvediloL 2019- Yes [id number] 6.25mg Take 1 [facility] 6.25 mg 1-30 tablet by [facility] tablet 00:00: mouth 2 (two) Medical times Branch daily with meals. lisinopriL 2019-04 Yes [id number] 20mg Take 1 [facility] 20 mg 1-30 tablet by [facility] tablet 00:00: mouth [place] 00 daily. [facility] tamsulosin 2019-04 Yes [id number] .4mg Take 1 [facility] 0.4 mg 24 1-30 capsule by [facility] hr capsule 00:00: mouth [place] 00 daily. [facility] amLODIPine 2019-04 Yes [id number] 5mg Take 1 [facility] 5 mg tablet 1-30 tablet by [facility] of 00:00: mouth [place] 00 daily. [facility] Branch atorvastati 2019-04 Yes [id number] 40mg Take 1 [facility] n (LIPITOR) 1-30 tablet by [facility] 40 mg 00:00: mouth at [place] tablet 00 bedtime. Medical Branch carvediloL 2019-04 Yes [id number] 6.25mg Take 1 [facility] 6.25 mg 1-30 tablet by [facility] tablet 00:00: mouth 2 (two) Medical times Branch daily with meals. lisinopriL 2019-04 Yes [id number] 20mg Take 1 [facility] 20 mg 1-30 tablet by [facility] tablet 00:00: mouth [place] 00 daily. [facility] tamsulosin 2019-04 Yes [id number] .4mg Take 1 [facility] 0.4 mg 24 1-30 capsule by [facility] hr capsule 00:00: mouth [place] 00 daily. [facility] amLODIPine 2019- Yes [id number] 5mg Take 1 [facility] 5 mg tablet 1-30 tablet by [facility] of 00:00: mouth [place] 00 daily. [facility] Branch atorvastati 2019- Yes [id number] 40mg Take 1 [facility] n (LIPITOR) 1-30 tablet by [facility] 40 mg 00:00: mouth at [place] tablet 00 bedtime. Medical Branch carvediloL 2019-04 Yes [id number] 6.25mg Take 1 [facility] 6.25 mg 1-30 tablet by [facility] of tablet 00:00: mouth 2 [place] (two) Medical times Branch daily with meals. lisinopriL 2019- Yes [id number] 20mg Take 1 [facility] 20 mg 1-30 tablet by [facility] tablet 00:00: mouth [place] 00 daily. [facility] Branch tamsulosin 2019- Yes [id number] .4mg Take 1 [facility] 0.4 mg 24 1-30 capsule by [facility] hr capsule 00:00: mouth [place] 00 daily. [facility] amLODIPine 2019- Yes [id number] 5mg Take 1 [facility] 5 mg tablet 1-30 tablet by [facility] of 00:00: mouth [place] 00 daily. [facility] Branch atorvastati 2019- Yes [id number] 40mg Take 1 [facility] n (LIPITOR) 1-30 tablet by [facility] 40 mg 00:00: mouth at [place] tablet 00 bedtime. Medical Branch carvediloL 2019-04 Yes [id number] 6.25mg Take 1 [facility] 6.25 mg 1-30 tablet by [facility] of tablet 00:00: mouth 2 00 (two) Medical times Branch daily with meals. lisinopriL 2019-04 Yes [id number] 20mg Take 1 [facility] 20 mg 1-30 tablet by [facility] tablet 00:00: mouth [place] 00 daily. [facility] Branch tamsulosin 2019-04 Yes [id number] .4mg Take 1 [facility] 0.4 mg 24 1-30 capsule by [facility] hr capsule 00:00: mouth [place] 00 daily. [facility] amLODIPine 2019-04 Yes [id number] 5mg Take 1 [facility] 5 mg tablet 1-30 tablet by [facility] of 00:00: mouth [place] 00 daily. [facility] Branch atorvastati 2019- Yes [id number] 40mg Take 1 [facility] n (LIPITOR) 1-30 tablet by [facility] 40 mg 00:00: mouth at [place] tablet 00 bedtime. [facility] Branch carvediloL 2019-04 Yes [id number] 6.25mg Take 1 [facility] 6.25 mg 1-30 tablet by [facility] tablet 00:00: mouth 2 [place] (two) Medical times Branch daily with meals. lisinopriL 2019-04 Yes [id number] 20mg Take 1 [facility] 20 mg 1-30 tablet by [facility] tablet 00:00: mouth [place] 00 daily. [facility] Branch tamsulosin 2019-04 Yes [id number] .4mg Take 1 [facility] 0.4 mg 24 1-30 capsule by [facility] hr capsule 00:00: mouth [place] 00 daily. [facility] amLODIPine 2019- Yes [id number] 5mg Take 1 [facility] 5 mg tablet 1-30 tablet by [facility] 00:00: mouth [place] 00 daily. [facility] atorvastati 2019- Yes [id number] 40mg Take 1 [facility] n (LIPITOR) 1-30 tablet by [facility] 40 mg 00:00: mouth at [place] tablet 00 bedtime. Medical [facility] carvediloL 2019- Yes [id number] 6.25mg Take 1 [facility] 6.25 mg 1-30 tablet by [facility] tablet 00:00: mouth 2 (two) Medical times Branch daily with meals. lisinopriL 2019-04 Yes [id number] 20mg Take 1 [facility] 20 mg 1-30 tablet by [facility] tablet 00:00: mouth [place] 00 daily. [facility] tamsulosin 2019-04 Yes [id number] .4mg Take 1 [facility] 0.4 mg 24 1-30 capsule by [facility] hr capsule 00:00: mouth [place] 00 daily. [facility] amLODIPine 2019-04 Yes [id number] 5mg Take 1 [facility] 5 mg tablet 1-30 tablet by [facility] of 00:00: mouth [place] 00 daily. [facility] atorvastati 2019-04 Yes [id number] 40mg Take 1 [facility] n (LIPITOR) 1-30 tablet by [facility] 40 mg 00:00: mouth at [place] tablet 00 bedtime. [facility] carvediloL 2019-04 Yes [id number] 6.25mg Take 1 [facility] 6.25 mg 1-30 tablet by [facility] tablet 00:00: mouth 2 (two) Medical times Branch daily with meals. lisinopriL 2019- Yes [id number] 20mg Take 1 [facility] 20 mg 1-30 tablet by [facility] tablet 00:00: mouth [place] 00 daily. [facility] tamsulosin 2019-04 Yes [id number] .4mg Take 1 [facility] 0.4 mg 24 1-30 capsule by [facility] hr capsule 00:00: mouth [place] 00 daily. [facility] carvediloL 2019-04 Yes [id number] 6.25mg Take 1 [facility] 6.25 mg 1-30 tablet by [facility] tablet 00:00: mouth 2 [place] (two) Medical times Branch daily with meals. lisinopriL 2019- Yes [id number] 20mg Take 1 [facility] 20 mg 1-30 tablet by [facility] tablet 00:00: mouth [place] 00 daily. [facility] tamsulosin 2019- Yes [id number] .4mg Take 1 [facility] 0.4 mg 24 1-30 capsule by [facility] hr capsule 00:00: mouth [place] 00 daily. [facility] amLODIPine 2019- Yes [id number] 5mg Take 1 [facility] 5 mg tablet 1-30 tablet by [facility] of 00:00: mouth [place] 00 daily. [facility] atorvastati 2019- Yes [id number] 40mg Take 1 [facility] n (LIPITOR) 1-30 tablet by [facility] 40 mg 00:00: mouth at [place] tablet 00 bedtime. [facility] Branch atorvastati 2019-04 Yes [id number] 40mg Take 1 [facility] n (LIPITOR) 1-30 tablet by [facility] 40 mg 00:00: mouth at [place] tablet 00 bedtime. [facility] carvediloL 2019- Yes [id number] 6.25mg Take 1 [facility] 6.25 mg 1-30 tablet by [facility] tablet 00:00: mouth 2 (two) [facility] times [facility] daily with meals. lisinopriL 2019-04 Yes [id number] 20mg Take 1 [facility] 20 mg 1-30 tablet by [facility] tablet 00:00: mouth [place] 00 daily. [facility] tamsulosin 2019-04 Yes [id number] .4mg Take 1 [facility] 0.4 mg 24 1-30 capsule by [facility] hr capsule 00:00: mouth [place] 00 daily. [facility] amLODIPine 2019- Yes [id number] 5mg Take 1 [facility] 5 mg tablet 1-30 tablet by [facility] 00:00: mouth [place] 00 daily. [facility] atorvastati 2019- Yes [id number] 40mg Take 1 [facility] n (LIPITOR) 1-30 tablet by [facility] 40 mg 00:00: mouth at [place] tablet 00 bedtime. [facility] carvediloL 2019- Yes [id number] 6.25mg Take 1 [facility] 6.25 mg 1-30 tablet by [facility] tablet 00:00: mouth 2 [place] 00 (two) [facility] times [facility] daily with meals. lisinopriL 2019- Yes [id number] 20mg Take 1 [facility] 20 mg 1-30 tablet by [facility] tablet 00:00: mouth [place] 00 daily. [facility] tamsulosin 2019- Yes [id number] .4mg Take 1 [facility] 0.4 mg 24 1-30 capsule by [facility] hr capsule 00:00: mouth [place] 00 daily. [facility] amLODIPine 2019- Yes [id number] 5mg Take 1 [facility] 5 mg tablet 1-30 tablet by [facility] 00:00: mouth [place] 00 daily. [facility] atorvastati 2019-04 Yes [id number] 40mg Take 1 [facility] n (LIPITOR) 1-30 tablet by [facility] 40 mg 00:00: mouth at [place] tablet 00 bedtime. [facility] carvediloL 2019-04 Yes [id number] 6.25mg Take 1 [facility] 6.25 mg 1-30 tablet by [facility] tablet 00:00: mouth 2 (two) [facility] times [facility] daily with meals. lisinopriL 2019-04 Yes [id number] 20mg Take 1 [facility] 20 mg 1-30 tablet by [facility] tablet 00:00: mouth [place] 00 daily. [facility] tamsulosin 2019-04 Yes [id number] .4mg Take 1 [facility] 0.4 mg 24 1-30 capsule by [facility] hr capsule 00:00: mouth [place] 00 daily. [facility] atorvastati 2019-04 Yes [id number] 40mg Take 1 [facility] n (LIPITOR) 1-30 tablet by [facility] 40 mg 00:00: mouth at [place] tablet 00 bedtime. [facility] carvediloL 2019-04 Yes [id number] 6.25mg Take 1 [facility] 6.25 mg 1-30 tablet by [facility] tablet 00:00: mouth 2 (two) [facility] times [facility] daily with meals. lisinopriL 2019-04 Yes [id number] 20mg Take 1 [facility] 20 mg 1-30 tablet by [facility] tablet 00:00: mouth [place] 00 daily. [facility] tamsulosin 2019-04 Yes [id number] .4mg Take 1 [facility] 0.4 mg 24 1-30 capsule by [facility] hr capsule 00:00: mouth [place] 00 daily. [facility] atorvastati 2019-04 Yes [id number] 40mg Take 1 [facility] n (LIPITOR) 1-30 tablet by [facility] 40 mg 00:00: mouth at [place] tablet 00 bedtime. [facility] carvediloL 2019-04 Yes [id number] 6.25mg Take 1 [facility] 6.25 mg 1-30 tablet by [facility] tablet 00:00: mouth 2 [place] (two) Medical times [facility] daily with meals. lisinopriL 2019-04 Yes [id number] 20mg Take 1 [facility] 20 mg 1-30 tablet by [facility] tablet 00:00: mouth [place] 00 daily. [facility] tamsulosin 2019-04 Yes [id number] .4mg Take 1 [facility] 0.4 mg 24 1-30 capsule by [facility] hr capsule 00:00: mouth [place] 00 daily. [facility] atorvastati 2019-04 Yes [id number] 40mg Take 1 [facility] n (LIPITOR) 1-30 tablet by [facility] 40 mg 00:00: mouth at [place] tablet 00 bedtime. [facility] carvediloL 2019-04 Yes [id number] 6.25mg Take 1 [facility] 6.25 mg 1-30 tablet by [facility] tablet 00:00: mouth 2 00 (two) [facility] times [facility] daily with meals. lisinopriL 2019-04 Yes [id number] 20mg Take 1 [facility] 20 mg 1-30 tablet by [facility] tablet 00:00: mouth [place] 00 daily. [facility] tamsulosin 2019-04 Yes [id number] .4mg Take 1 [facility] 0.4 mg 24 1-30 capsule by [facility] hr capsule 00:00: mouth [place] 00 daily. [facility] atorvastati 2019-04 Yes [id number] 40mg Take 1 [facility] n (LIPITOR) 1-30 tablet by [facility] 40 mg 00:00: mouth at [place] tablet 00 bedtime. [facility] carvediloL 2019-04 Yes [id number] 6.25mg Take 1 [facility] 6.25 mg 1-30 tablet by [facility] tablet 00:00: mouth 2 [place] 00 (two) Medical times [facility] daily with meals. lisinopriL 2019-04 Yes [id number] 20mg Take 1 [facility] 20 mg 1-30 tablet by [facility] tablet 00:00: mouth [place] 00 daily. [facility] tamsulosin 2019-04 Yes [id number] .4mg Take 1 [facility] 0.4 mg 24 1-30 capsule by [facility] hr capsule 00:00: mouth [place] 00 daily. [facility] atorvastati 2019-04 Yes [id number] 40mg Take 1 [facility] n (LIPITOR) 1-30 tablet by [facility] 40 mg 00:00: mouth at [place] tablet 00 bedtime. [facility] carvediloL 2019-04 Yes [id number] 6.25mg Take 1 [facility] 6.25 mg 1-30 tablet by [facility] tablet 00:00: mouth 2 [place] 00 (two) [facility] times [facility] daily with meals. lisinopriL 2019-04 Yes [id number] 20mg Take 1 [facility] 20 mg 1-30 tablet by [facility] tablet 00:00: mouth [place] 00 daily. [facility] tamsulosin 2019-04 Yes [id number] .4mg Take 1 [facility] 0.4 mg 24 1-30 capsule by [facility] hr capsule 00:00: mouth [place] 00 daily. [facility] atorvastati 2019-04 Yes [id number] 40mg Take 1 [facility] n (LIPITOR) 1-30 tablet by [facility] 40 mg 00:00: mouth at [place] tablet 00 bedtime. [facility] carvediloL 2019-04 Yes [id number] 6.25mg Take 1 [facility] 6.25 mg 1-30 tablet by [facility] tablet 00:00: mouth 2 (two) [facility] times [facility] daily with meals. lisinopriL 2019-04 Yes [id number] 20mg Take 1 [facility] 20 mg 1-30 tablet by [facility] tablet 00:00: mouth [place] 00 daily. [facility] tamsulosin 2019-04 Yes [id number] .4mg Take 1 [facility] 0.4 mg 24 1-30 capsule by [facility] hr capsule 00:00: mouth [place] 00 daily. [facility] atorvastati 2019-04 Yes [id number] 40mg Take 1 [facility] n (LIPITOR) 1-30 tablet by [facility] 40 mg 00:00: mouth at [place] tablet 00 bedtime. [facility] carvediloL 2019-04 Yes [id number] 6.25mg Take 1 [facility] 6.25 mg 1-30 tablet by [facility] tablet 00:00: mouth 2 (two) [facility] times [facility] daily with meals. lisinopriL 2019-04 Yes [id number] 20mg Take 1 [facility] 20 mg 1-30 tablet by [facility] tablet 00:00: mouth [place] 00 daily. [facility] tamsulosin 2019-04 Yes [id number] .4mg Take 1 [facility] 0.4 mg 24 1-30 capsule by [facility] hr capsule 00:00: mouth [place] 00 daily. [facility] atorvastati 2019-04 Yes [id number] 40mg Take 1 [facility] n (LIPITOR) 1-30 tablet by [facility] 40 mg 00:00: mouth at [place] tablet 00 bedtime. [facility] carvediloL 2019-04 Yes [id number] 6.25mg Take 1 [facility] 6.25 mg 1-30 tablet by [facility] tablet 00:00: mouth 2 [place] (two) Medical times [facility] daily with meals. lisinopriL 2019-04 Yes [id number] 20mg Take 1 [facility] 20 mg 1-30 tablet by [facility] tablet 00:00: mouth [place] 00 daily. [facility] tamsulosin 2019-04 Yes [id number] .4mg Take 1 [facility] 0.4 mg 24 1-30 capsule by [facility] hr capsule 00:00: mouth [place] 00 daily. [facility] atorvastati 2019-04 Yes [id number] 40mg Take 1 [facility] n (LIPITOR) 1-30 tablet by [facility] 40 mg 00:00: mouth at [place] tablet 00 bedtime. [facility] carvediloL 2019-04 Yes [id number] 6.25mg Take 1 [facility] 6.25 mg 1-30 tablet by [facility] tablet 00:00: mouth 2 (two) [facility] times [facility] daily with meals. tamsulosin 2019-04 Yes [id number] .4mg Take 1 [facility] 0.4 mg 24 1-30 capsule by [facility] hr capsule 00:00: mouth [place] 00 daily. [facility] atorvastati 2019-04 Yes [id number] 40mg Take 1 [facility] n (LIPITOR) 1-30 tablet by [facility] 40 mg 00:00: mouth at [place] tablet 00 bedtime. [facility] carvediloL 2019-04 Yes [id number] 6.25mg Take 1 [facility] 6.25 mg 1-30 tablet by [facility] tablet 00:00: mouth 2 (two) [facility] times [facility] daily with meals. tamsulosin 2019-04 Yes [id number] .4mg Take 1 [facility] 0.4 mg 24 1-30 capsule by [facility] hr capsule 00:00: mouth [place] 00 daily. [facility] atorvastati 2019-04 Yes [id number] 40mg Take 1 [facility] n (LIPITOR) 1-30 tablet by [facility] 40 mg 00:00: mouth at [place] tablet 00 bedtime. [facility] carvediloL 2019- Yes [id number] 6.25mg Take 1 [facility] 6.25 mg 1-30 tablet by [facility] tablet 00:00: mouth 2 (two) [facility] times [facility] daily with meals. tamsulosin 2019-04 Yes [id number] .4mg Take 1 [facility] 0.4 mg 24 1-30 capsule by [facility] hr capsule 00:00: mouth [place] 00 daily. [facility] atorvastati 2019-04 Yes [id number] 40mg Take 1 [facility] n (LIPITOR) 1-30 tablet by [facility] 40 mg 00:00: mouth at [place] tablet 00 bedtime. [facility] carvediloL 2019-04 Yes [id number] 6.25mg Take 1 [facility] 6.25 mg 1-30 tablet by [facility] tablet 00:00: mouth 2 (two) [facility] times [facility] daily with meals. tamsulosin 2019-04 Yes [id number] .4mg Take 1 [facility] 0.4 mg 24 1-30 capsule by [facility] hr capsule 00:00: mouth 00 daily. [facility] atorvastati 2019-04 Yes [id number] 40mg Take 1 [facility] n (LIPITOR) 1-30 tablet by [facility] 40 mg 00:00: mouth at [place] tablet 00 bedtime. [facility] carvediloL 2019-04 Yes [id number] 6.25mg Take 1 [facility] 6.25 mg 1-30 tablet by [facility] tablet 00:00: mouth 2 (two) [facility] times [facility] daily with meals. tamsulosin 2019-04 Yes [id number] .4mg Take 1 [facility] 0.4 mg 24 1-30 capsule by [facility] hr capsule 00:00: mouth [place] 00 daily. [facility] atorvastati 2019-04 Yes [id number] 40mg Take 1 [facility] n (LIPITOR) 1-30 tablet by [facility] 40 mg 00:00: mouth at [place] tablet 00 bedtime. [facility] carvediloL 2019- Yes [id number] 6.25mg Take 1 [facility] 6.25 mg 1-30 tablet by [facility] tablet 00:00: mouth 2 (two) Medical times [facility] daily with meals. tamsulosin 2019-04 Yes [id number] .4mg Take 1 [facility] 0.4 mg 24 1-30 capsule by [facility] hr capsule 00:00: mouth [place] 00 daily. [facility] atorvastati 2019-04 Yes [id number] 40mg Take 1 [facility] n (LIPITOR) 1-30 tablet by [facility] 40 mg 00:00: mouth at [place] tablet 00 bedtime. [facility] carvediloL 2019-04 Yes [id number] 6.25mg Take 1 [facility] 6.25 mg 1-30 tablet by [facility] tablet 00:00: mouth 2 [place] 00 (two) Medical times [facility] daily with meals. atorvastati 2019-04 Yes [id number] 40mg Take 1 [facility] n (LIPITOR) 1-30 tablet by [facility] 40 mg 00:00: mouth at [place] tablet 00 bedtime. [facility] carvediloL 2019-04 Yes [id number] 6.25mg Take 1 [facility] 6.25 mg 1-30 tablet by [facility] tablet 00:00: mouth 2 [place] 00 (two) Medical times [facility] daily with meals. atorvastati 2019-04 Yes [id number] 40mg Take 1 [facility] n (LIPITOR) 1-30 tablet by [facility] of 40 mg 00:00: mouth at [place] tablet 00 bedtime. [facility] carvediloL 2019-04 Yes [id number] 6.25mg Take 1 [facility] 6.25 mg 1-30 tablet by [facility] of tablet 00:00: mouth 2 [place] (two) Medical times [facility] daily with meals. atorvastati 2019-04 Yes [id number] 40mg Take 1 [facility] n (LIPITOR) 1-30 tablet by [facility] of 40 mg 00:00: mouth at [place] tablet 00 bedtime. [facility] carvediloL 2019-04- No [id number] 6.25mg Take 1 [facility] 6.25 mg 1-30 07-14 tablet by [facility] tablet 00:00: 00:00 mouth 2 [place] 00 :00 (two) Medical times [facility] daily with meals. atorvastati 2019-04- No [id number] 40mg Take 1 [facility] n (LIPITOR) 1-30 07-14 tablet by it y of 40 mg 00:00: 00:00 mouth at [place] tablet 00 :00 bedtime. [facility] carvediloL 2019-04- No [id number] 6.25mg Take 1 [facility] 6.25 mg 1-30 07-14 tablet by [facility] tablet 00:00: 00:00 mouth 2 [place] 00 :00 (two) Medical times [facility] daily with meals. atorvastati 2019-04- No [id number] 40mg Take 1 [facility] n (LIPITOR) 05-03 tablet by it y of 40 mg 00:00: 00:00 mouth at [place] tablet 00 :00 bedtime. [facility] tamsulosin 2019-04- No [id number] .4mg Take 1 [facility] 0.4 mg 24 05-03 capsule by [facility] hr capsule 00:00: 00:00 mouth [place] 00 :00 daily. [facility] tamsulosin 2019-04- No [id number] .4mg Take 1 [facility] 0.4 mg 24 05-03 capsule by [facility] hr capsule 00:00: 00:00 mouth [place] 00 :00 daily. [facility] tamsulosin 2019-04- No [id number] .4mg Take 1 [facility] 0.4 mg 24 05-03 capsule by [facility] hr capsule 00:00: 00:00 mouth [place] 00 :00 daily. [facility] tamsulosin 2019-04- No [id number] .4mg Take 1 [facility] 0.4 mg 24 05-03 capsule by [facility] hr capsule 00:00: 00:00 mouth [place] 00 :00 daily. [facility] lisinopriL 2019-04- No [id number] 20mg Take 1 [facility] 20 mg 05-03 tablet by [facility] tablet 00:00: 00:00 mouth [place] 00 :00 daily. [facility] amLODIPine 2019-04- No [id number] 5mg Take 1 [facility] 5 mg tablet 05-03 tablet by it y of 00:00: 00:00 mouth [place] 00 :00 daily. [facility] amLODIPine 2019-04- No [id number] 5mg Take 1 [facility] 5 mg tablet 05-03 tablet by it y of 00:00: 00:00 mouth [place] 00 :00 daily. [facility] carvediloL 2019-04 Yes [id number] 6.25mg Take 1 [facility] 6.25 mg 0-23 tablet by [facility] tablet 00:00: mouth 2 [place] 00 (two) Medical times [facility] daily with meals. lisinopriL 2019-04 Yes [id number] 20mg Take 1 [facility] 20 mg 0-23 tablet by [facility] tablet 00:00: mouth [place] 00 daily. [facility] carvediloL 2019-04- No [id number] 6.25mg Take 1 [facility] 6.25 mg 0-23 11-30 tablet by [facility] tablet 00:00: 00:00 mouth 2 [place] 00 :00 (two) Medical times [facility] daily with meals. lisinopriL 2019-04- No [id number] 20mg Take 1 [facility] 20 mg 0-23 11-30 tablet by [facility] tablet 00:00: 00:00 mouth [place] 00 :00 daily. [facility] carvediloL 2019-04- No [id number] 6.25mg Take 1 [facility] 6.25 mg 0-23 11-30 tablet by [facility] tablet 00:00: 00:00 mouth 2 [place] 00 :00 (two) Medical times [facility] daily with meals. lisinopriL 2019-04- No [id number] 20mg Take 1 [facility] 20 mg 0-23 11-30 tablet by [facility] tablet 00:00: 00:00 mouth [place] 00 :00 daily. [facility] carvediloL 2019-04- No [id number] 6.25mg Take 1 [facility] 6.25 mg 0-23 11-30 tablet by [facility] tablet 00:00: 00:00 mouth 2 [place] 00 :00 (two) Medical times [facility] daily with meals. lisinopriL 2019-04- No [id number] 20mg Take 1 [facility] 20 mg 0-23 11-30 tablet by [facility] tablet 00:00: 00:00 mouth [place] 00 :00 daily. [facility] TAMSULOSIN 2020-0 Yes [id number] Take 1 [facility] 0.4 mg 24 9-22 capsule by [facility] hr capsule 00:00: mouth once [place] 00 daily [facility] TAMSULOSIN 2020-0 Yes [id number] Take 1 [facility] 0.4 mg 24 9-22 capsule by [facility] hr capsule 00:00: mouth once [place] 00 daily [facility] TAMSULOSIN 2020-0 Yes [id number] Take 1 [facility] 0.4 mg 24 9-22 capsule by [facility] hr capsule 00:00: mouth once [place] 00 daily [facility] TAMSULOSIN 2020-0 Yes [id number] Take 1 [facility] 0.4 mg 24 9-22 capsule by [facility] hr capsule 00:00: mouth once [place] 00 daily [facility] TAMSULOSIN 2020-0 2020- No [id number] Take 1 [facility] 0.4 mg 24 12-24-30 capsule by [facility] hr capsule 00:00: 00:00 mouth once [place] 00 :00 daily [facility] TAMSULOSIN 2020-0 2020- No [id number] Take 1 [facility] 0.4 mg 24 12-24-30 capsule by [facility] hr capsule 00:00: 00:00 mouth once [place] 00 :00 daily [facility] TAMSULOSIN 2019-0 2020- No [id number] Take 1 [facility] 0.4 mg 24 12-24-30 capsule by [facility] hr capsule 00:00: 00:00 mouth once [place] 00 :00 daily [facility] amLODIPine 2020-0 Yes [id number] 5mg Take 1 [facility] 5 mg tablet 8-31 tablet by [facility] of 00:00: mouth 00 daily. [facility] carvediloL 2020-0 Yes [id number] 6.25mg Take 1 [facility] 6.25 mg 8-31 tablet by [facility] of tablet 00:00: mouth (two) [facility] times [facility] daily with meals. amLODIPine 2020-0 Yes [id number] 5mg Take 1 [facility] 5 mg tablet 8-31 tablet by [facility] of 00:00: mouth 00 daily. [facility] carvediloL 2020-0 Yes [id number] 6.25mg Take 1 [facility] 6.25 mg 8-31 tablet by [facility] of tablet 00:00: mouth (two) [facility] times [facility] daily with meals. amLODIPine 2020-0 Yes [id number] 5mg Take 1 [facility] 5 mg tablet 8-31 tablet by [facility] of 00:00: mouth 00 daily. [facility] carvediloL 2020-0 Yes [id number] 6.25mg Take 1 [facility] 6.25 mg 8-31 tablet by [facility] of tablet 00:00: mouth 2 (two) [facility] times [facility] daily with meals. amLODIPine 2020-0 Yes [id number] 5mg Take 1 [facility] 5 mg tablet 8-31 tablet by [facility] of 00:00: mouth [place] 00 daily. [facility] carvediloL 2020-0 Yes [id number] 6.25mg Take 1 [facility] 6.25 mg 8-31 tablet by [facility] of tablet 00:00: mouth 2 [place] 00 (two) Medical times [facility] daily with meals. amLODIPine 2019-0 Yes [id number] 5mg Take 1 [facility] 5 mg tablet 8-31 tablet by [facility] of 00:00: mouth [place] 00 daily. [facility] amLODIPine 2019-0 2020- No [id number] 5mg Take 1 [facility] 5 mg tablet 8 11-30 tablet by it y of 00:00: 00:00 mouth [place] 00 :00 daily. [facility] amLODIPine 2019-0 2020- No [id number] 5mg Take 1 [facility] 5 mg tablet 8-30 tablet by it y of 00:00: 00:00 mouth [place] 00 :00 daily. [facility] amLODIPine 2019-0 2020- No [id number] 5mg Take 1 [facility] 5 mg tablet 8-30 tablet by it y of 00:00: 00:00 mouth [place] 00 :00 daily. [facility] carvediloL 2019-0 2020- No [id number] 6.25mg Take 1 [facility] 6.25 mg - 10-23 tablet by [facility] of tablet 00:00: 00:00 mouth 2 [place] 00 :00 (two) Medical times [facility] daily with meals. atorvastati 2020-0 Yes [id number] 40mg Take 1 [facility] n (LIPITOR) 4-07 tablet by [facility] of 40 mg 00:00: mouth at [place] tablet 00 bedtime. [facility] tamsulosin 2019-0 Yes [id number] .4mg Take 1 [facility] 0.4 mg 24 4-07 capsule by [facility] hr capsule 00:00: mouth [place] 00 daily. [facility] tiZANidine 2019-0 Yes [id number] 4mg Take 1 [facility] 4 mg tablet 4-07 tablet by [facility] of 00:00: mouth [place] 00 every 8 Medical (eight) Branch hours as needed (muscle pain or spasm). carvediloL 2020-0 Yes [id number] 6.25mg Take 1 [facility] 6.25 mg 4-07 tablet by [facility] of tablet 00:00: mouth 2 [place] 00 (two) Medical times [facility] daily with meals. amLODIPine 2019-0 Yes [id number] 5mg Take 1 [facility] 5 mg tablet 4-07 tablet by [facility] of 00:00: mouth [place] 00 daily. [facility] lisinopril 2019-0 Yes [id number] 20mg Take 1 [facility] 20 mg 4-07 tablet by [facility] of tablet 00:00: mouth [place] 00 daily. [facility] atorvastati 2020-0 Yes [id number] 40mg Take 1 [facility] n (LIPITOR) 4-07 tablet by [facility] of 40 mg 00:00: mouth at [place] tablet 00 bedtime. [facility] tamsulosin 2020-0 Yes [id number] .4mg Take 1 [facility] 0.4 mg 24 4-07 capsule by [facility] of hr capsule 00:00: mouth [place] 00 daily. [facility] tiZANidine 2020-0 Yes [id number] 4mg Take 1 [facility] 4 mg tablet 4-07 tablet by [facility] of 00:00: mouth [place] 00 every 8 Medical (eight) Branch hours as needed (muscle pain or spasm). carvediloL 2020-0 Yes [id number] 6.25mg Take 1 [facility] 6.25 mg 4-07 tablet by [facility] of tablet 00:00: mouth 2 [place] 00 (two) Medical times [facility] daily with meals. amLODIPine 2019-0 Yes [id number] 5mg Take 1 [facility] 5 mg tablet 4-07 tablet by [facility] of 00:00: mouth [place] 00 daily. [facility] lisinopril 2020-0 Yes [id number] 20mg Take 1 [facility] 20 mg 4-07 tablet by [facility] of tablet 00:00: mouth [place] 00 daily. [facility] atorvastati 2019-0 Yes [id number] 40mg Take 1 [facility] n (LIPITOR) 4-07 tablet by [facility] of 40 mg 00:00: mouth at [place] tablet 00 bedtime. [facility] tamsulosin 2019-0 Yes [id number] .4mg Take 1 [facility] 0.4 mg 24 4-07 capsule by [facility] hr capsule 00:00: mouth [place] 00 daily. [facility] tiZANidine 2020-0 Yes [id number] 4mg Take 1 [facility] 4 mg tablet 4-07 tablet by [facility] of 00:00: mouth [place] 00 every 8 Medical (eight) Branch hours as needed (muscle pain or spasm). lisinopril 2020-0 Yes [id number] 20mg Take 1 [facility] 20 mg 4-07 tablet by [facility] of tablet 00:00: mouth [place] 00 daily. [facility] atorvastati 2019-0 Yes [id number] 40mg Take 1 [facility] n (LIPITOR) 4-07 tablet by [facility] of 40 mg 00:00: mouth at [place] tablet 00 bedtime. [facility] tamsulosin 2020-0 Yes [id number] .4mg Take 1 [facility] 0.4 mg 24 4-07 capsule by [facility] hr capsule 00:00: mouth [place] 00 daily. [facility] tiZANidine 2020-0 Yes [id number] 4mg Take 1 [facility] 4 mg tablet 4-07 tablet by [facility] of 00:00: mouth [place] 00 every 8 Medical (eight) Branch hours as needed (muscle pain or spasm). lisinopril 2020-0 Yes [id number] 20mg Take 1 [facility] 20 mg 4-07 tablet by [facility] of tablet 00:00: mouth [place] 00 daily. [facility] atorvastati 2019-0 Yes [id number] 40mg Take 1 [facility] n (LIPITOR) 4-07 tablet by [facility] of 40 mg 00:00: mouth at [place] tablet 00 bedtime. [facility] tiZANidine 2019-0 Yes [id number] 4mg Take 1 [facility] 4 mg tablet 4-07 tablet by [facility] of 00:00: mouth [place] 00 every 8 Medical (eight) Branch hours as needed (muscle pain or spasm). lisinopril 2020-0 Yes [id number] 20mg Take 1 [facility] 20 mg 4-07 tablet by [facility] of tablet 00:00: mouth [place] 00 daily. [facility] atorvastati 2019-0 Yes [id number] 40mg Take 1 [facility] n (LIPITOR) 4-07 tablet by [facility] of 40 mg 00:00: mouth at [place] tablet 00 bedtime. [facility] tiZANidine 2019-0 Yes [id number] 4mg Take 1 [facility] 4 mg tablet 4-07 tablet by [facility] of 00:00: mouth [place] 00 every 8 Medical (eight) Branch hours as needed (muscle pain or spasm). lisinopril 2020-0 Yes [id number] 20mg Take 1 [facility] 20 mg 4-07 tablet by [facility] of tablet 00:00: mouth [place] 00 daily. [facility] atorvastati 2020-0 Yes [id number] 40mg Take 1 [facility] n (LIPITOR) 4-07 tablet by [facility] of 40 mg 00:00: mouth at [place] tablet 00 bedtime. [facility] tiZANidine 2019-0 Yes [id number] 4mg Take 1 [facility] 4 mg tablet 4-07 tablet by [facility] of 00:00: mouth [place] 00 every 8 Medical (eight) Branch hours as needed (muscle pain or spasm). atorvastati 2020-0 Yes [id number] 40mg Take 1 [facility] n (LIPITOR) 4-07 tablet by [facility] of 40 mg 00:00: mouth at [place] tablet 00 bedtime. [facility] tiZANidine 2020-0 Yes [id number] 4mg Take 1 [facility] 4 mg tablet 4-07 tablet by [facility] of 00:00: mouth [place] 00 every 8 Medical (eight) Branch hours as needed (muscle pain or spasm). tiZANidine 2020-0 Yes [id number] 4mg Take 1 [facility] 4 mg tablet 4-07 tablet by [facility] of 00:00: mouth [place] 00 every 8 Medical (eight) Branch hours as needed (muscle pain or spasm). tiZANidine 2020-0 Yes [id number] 4mg Take 1 [facility] 4 mg tablet 4-07 tablet by [facility] of 00:00: mouth [place] 00 every 8 Medical (eight) Branch hours as needed (muscle pain or spasm). tiZANidine 2020-0 Yes [id number] 4mg Take 1 [facility] 4 mg tablet 4-07 tablet by [facility] of 00:00: mouth [place] 00 every 8 Medical (eight) Branch hours as needed (muscle pain or spasm). tiZANidine 2020-0 Yes [id number] 4mg Take 1 [facility] 4 mg tablet 4-07 tablet by [facility] of 00:00: mouth [place] 00 every 8 Medical (eight) Branch hours as needed (muscle pain or spasm). tiZANidine 2020-0 Yes [id number] 4mg Take 1 [facility] 4 mg tablet 4-07 tablet by [facility] of 00:00: mouth [place] 00 every 8 Medical (eight) Branch hours as needed (muscle pain or spasm). tiZANidine 2020-0 Yes [id number] 4mg Take 1 [facility] 4 mg tablet 4-07 tablet by [facility] of 00:00: mouth [place] 00 every 8 Medical (eight) Branch hours as needed (muscle pain or spasm). tiZANidine 2020-0 Yes [id number] 4mg Take 1 [facility] 4 mg tablet 4-07 tablet by [facility] of 00:00: mouth [place] 00 every 8 Medical (eight) Branch hours as needed (muscle pain or spasm). tiZANidine 2020-0 Yes [id number] 4mg Take 1 [facility] 4 mg tablet 4-07 tablet by [facility] of 00:00: mouth [place] 00 every 8 Medical (eight) Branch hours as needed (muscle pain or spasm). tiZANidine 2020-0 Yes [id number] 4mg Take 1 [facility] 4 mg tablet 4-07 tablet by [facility] of 00:00: mouth [place] 00 every 8 Medical (eight) Branch hours as needed (muscle pain or spasm). tiZANidine 2020-0 Yes [id number] 4mg Take 1 [facility] 4 mg tablet 4-07 tablet by [facility] of 00:00: mouth [place] 00 every 8 Medical (eight) Branch hours as needed (muscle pain or spasm). tiZANidine 2020-0 Yes [id number] 4mg Take 1 [facility] 4 mg tablet 4-07 tablet by [facility] of 00:00: mouth [place] 00 every 8 Medical (eight) Branch hours as needed (muscle pain or spasm). tiZANidine 2020-0 Yes [id number] 4mg Take 1 [facility] 4 mg tablet 4-07 tablet by [facility] of 00:00: mouth [place] 00 every 8 Medical (eight) Branch hours as needed (muscle pain or spasm). tiZANidine 2020-0 Yes [id number] 4mg Take 1 [facility] 4 mg tablet 4-07 tablet by [facility] of 00:00: mouth [place] 00 every 8 Medical (eight) Branch hours as needed (muscle pain or spasm). carvediloL 2020-0 Yes [id number] 6.25mg Take 1 [facility] 6.25 mg 4-07 tablet by [facility] of tablet 00:00: mouth 2 [place] 00 (two) Medical times Branch daily with meals. amLODIPine 2020-0 Yes [id number] 5mg Take 1 [facility] 5 mg tablet 4-07 tablet by [facility] of 00:00: mouth [place] 00 daily. [facility] lisinopril 2020-0 Yes [id number] 20mg Take 1 [facility] 20 mg 4-07 tablet by [facility] of tablet 00:00: mouth [place] 00 daily. [facility] tiZANidine 2020-0 2020- No [id number] 4mg Take 1 [facility] 4 mg tablet 4-07 06-01 tablet by it y of 00:00: 00:00 mouth [place] 00 :00 every 8 Medical (eight) Branch hours as needed (muscle pain or spasm). tiZANidine 2020-0 2020- No [id number] 4mg Take 1 [facility] 4 mg tablet 07-09 tablet by it y of 00:00: 00:00 mouth [place] 00 :00 every 8 Medical (eight) Branch hours as needed (muscle pain or spasm). atorvastati 2019- No [id number] 40mg Take 1 [facility] n (LIPITOR) 07-09 tablet by it y of 40 mg 00:00: 00:00 mouth at [place] tablet 00 :00 bedtime. [facility] atorvastati No [id number] 40mg Take 1 [facility] n (LIPITOR) 07-09 tablet by it y of 40 mg 00:00: 00:00 mouth at [place] tablet 00 :00 bedtime. [facility] atorvastati No [id number] 40mg Take 1 [facility] n (LIPITOR) 07-09 tablet by it y of 40 mg 00:00: 00:00 mouth at [place] tablet 00 :00 bedtime. Medical Branch lisinopril 2019- No [id number] 20mg Take 1 [facility] 20 mg 07-09 tablet by ity of tablet 00:00: 00:00 mouth [place] 00 :00 daily. Medical Branch tamsulosin 2019- No [id number] .4mg Take 1 [facility] 0.4 mg 24 07-09 capsule by ity of hr capsule 00:00: 00:00 mouth [place] 00 :00 daily. Medical [facility] carvediloL 2019- No [id number] 6.25mg Take 1 [facility] 6.25 mg 07-09 tablet by ity of tablet 00:00: 00:00 mouth 2 [place] 00 :00 (two) Medical times Branch daily with meals. amLODIPine 2019- No [id number] 5mg Take 1 [facility] 5 mg tablet 07-09- tablet by it y of 00:00: 00:00 mouth [place] 00 :00 daily. Medical Branch TAMSULOSIN Yes [id number] TAKE 1 [facility] 0.4 mg 24 -31 CAPSULE BY ity of hr capsule 00:00: M[place]TH [place]CE [place] 00 DAILY [facility] CARVEDILOL Yes [id number] TAKE 1 U nivers 6.25 mg 1-31 TABLET BY ity of tablet 00:00: MOUTH [place] 00 TWICE Medical DAILY WITH Branch MEALS TAMSULOSIN 2020- No [id number] TAKE 1 [facility] 0.4 mg 24 05-04- CAPSULE BY ity of hr capsule 00:00: 00:00 MOUTH ONCE [place] 00 :00 DAILY Medical Branch CARVEDILOL 2020- No [id number] TAKE 1 [facility] 6.25 mg 05-04- TABLET BY ity of tablet 00:00: 00:00 MOUTH [place] 00 :00 TWICE Medical DAILY WITH Branch MEALS amLODIPine 2018-04 Yes [id number] 5mg Take 1 U nivers 5 mg tablet 2- tablet by ity of 00:00: mouth [place] 00 daily. Medical Branch amLODIPine 2018-04 2020- No [id number] 5mg Take 1 [facility] 5 mg tablet 05-06- tablet by it y of 00:00: 00:00 mouth [place] 00 :00 daily. Medical Branch lisinopril 2018-04 Yes [id number] 20mg Take 1 U nivers 20 mg 0-31 tablet by ity of tablet 00:00: mouth [place] 00 daily. Medical Branch lisinopril 2018-04 2020- No [id number] 20mg Take 1 [facility] 20 mg 0-- tablet by ity of tablet 00:00: 00:00 [...] daily. Medical Branch atorvastati 2019- 2020- No [id number] 40mg Take 1 [facility] n (LIPITOR) 0-25 10-25 tablet by it y of 40 mg 00:00: 04:59 mouth at [place] tablet 00 :00 bedtime. Medical Branch atorvastati 2018-04 2020- No [id number] 40mg Take 1 [facility] n (LIPITOR) 0-25 04-07 tablet by it y of 40 mg 00:00: 00:00 mouth at [place] tablet 00 :00 bedtime. Medical Branch bacitracin 2019- No [id number] Apply to [place] [address] 10-24 affected ity of unit/gram 00:00: 04:59 [place] oint[place] :00 (four) Medical times Branch daily for 10 days. bacitracin 2019- No [id number] Apply to [place] [address] 10-24 affected ity of unit/gram 00:00: 04:59 [place]int[place] 00 :00 (four) Medical times Branch daily for 10 days. TAMSULOSIN Yes [id number] TAKE 1 [facility] 0.4 mg 24 6-24 CAPSULE BY ity of hr capsule 00:00: MOUTH [place]CE [place] 00 DAILY [facility] TAMSULOSIN Yes [id number] TAKE 1 [facility] 0.4 mg 24 6-24 CAPSULE BY ity of hr capsule 00:00: MOUTH ONCE [place] 00 DAILY [facility] TAMSULOSIN Yes [id number] TAKE 1 [facility] 0.4 mg 24 6-24 CAPSULE BY ity of hr capsule 00:00: MOUTH ONCE [place] 00 DAILY [facility] TAMSULOSIN Yes [id number] TAKE 1 [facility] 0.4 mg 24 6-24 CAPSULE BY ity of hr capsule 00:00: MOUTH ONCE [place] 00 DAILY [facility] amLODIPine Yes [id number] 5mg Take 1 U nivers 5 mg tablet 5-09 tablet by ity of 00:00: mouth [place] 00 daily. Medical Branch amLODIPine Yes [id number] 5mg Take 1 U nivers 5 mg tablet 5-09 tablet by ity of 00:00: mouth [place] 00 daily. Medical Branch amLODIPine Yes [id number] 5mg Take 1 U nivers 5 mg tablet 5-09 tablet by ity of 00:00: mouth [place] 00 daily. Medical Branch amLODIPine 2019-0 Yes [id number] 5mg Take 1 U nivers 5 mg tablet 5-09 tablet by ity of 00:00: mouth [place] 00 daily. Medical Branch lisinopril 0 Yes [id number] 20mg Take 1 U nivers 20 mg 4-23 tablet by ity of tablet 00:00: mouth [place] 00 daily. Medical Branch lisinopril 0 Yes [id number] 20mg Take 1 U nivers 20 mg 4-23 tablet by ity of tablet 00:00: mouth [place] 00 daily. Medical Branch lisinopril 0 Yes [id number] 20mg Take 1 U nivers 20 mg 4-23 tablet by ity of tablet 00:00: mouth [place] 00 daily. Medical Branch lisinopril 0 Yes [id number] 20mg Take 1 U nivers 20 mg [...] (muscle pain or spasm). carvedilol 2017-04 Yes [id number] 6.25mg Take 1 [facility] 6.25 mg 0-05 tablet by ity of tablet 00:00: mouth 2 (two) Medical times Branch daily with meals. carvedilol 2017-04 Yes [id number] 6.25mg Take 1 [facility] 6.25 mg 0-05 tablet by ity of tablet 00:00: mouth 2 (two) Medical times Branch daily with meals. carvedilol 2017-04 Yes [id number] 6.25mg Take 1 [facility] 6.25 mg 0-05 tablet by ity of tablet 00:00: mouth 2 (two) Medical times Branch daily with meals. carvedilol 2017-04 Yes [id number] 6.25mg Take 1 [facility] 6.25 mg 0-05 tablet by ity of tablet 00:00: mouth 2 (two) Medical times Branch daily with meals. No known No Univers medications [facility] No known No Univers medications [facility] Immunizations Ordered Filled Date Status Comments Source Immunization Name Immunization Name SARS-COV-2 COVID-2022-02-01 Completed Unive rsity of MAY-SUCROSE 00:00:00 [place] [...] Completed Universit y of Conjugate, PCV20 00:00:00 [facility] dical (Prevnar 20) Branch Pneumococcal 20 2022-01-22 Completed Universit y of Conjugate, PCV20 00:00:00 [facility] dical (Prevnar 20) Branch Pneumococcal 20 2022-01-22 Completed Universit y of Conjugate, PCV20 00:00:00 [facility] dical (Prevnar 20) Branch Pneumococcal 20 2022-01-22 Completed Universit y of Conjugate, PCV20 00:00:00 [place] dical (Prevnar 20) Branch Pneumococcal 20 2022-01-22 Completed Universit y of Conjugate, PCV20 00:00:00 [facility] dical (Prevnar 20) Branch Pneumococcal 20 2022-01-22 Completed Universit y of Conjugate, PCV20 00:00:00 [place] [facility] dical (Prevnar 20) Branch Pneumococcal 20 2022-01-22 Completed Universit y of Conjugate, PCV20 00:00:00 [facility] dical (Prevnar 20) Branch Pneumococcal 20 2022-01-22 Completed Universit y of Conjugate, PCV20 00:00:00 [facility] dical (Prevnar 20) Branch Pneumococcal 20 2022-01-22 Completed Universit y of Conjugate, PCV20 00:00:00 [facility] dical (Prevnar 20) Branch Pneumococcal 20 2022-01-22 Completed Universit y of Conjugate, PCV20 00:00:00 [place] Me dical (Prevnar 20) Branch Pneumococcal 20 2022-01-22 Completed Universit y of Conjugate, PCV20 00:00:00 [facility] dical (Prevnar 20) Branch Pneumococcal 20 2022-01-22 Completed Universit y of Conjugate, PCV20 00:00:00 [place] [facility] dical (Prevnar 20) Branch Pneumococcal 20 2022-01-22 Completed Universit y of Conjugate, PCV20 00:00:00 [facility] dical (Prevnar 20) Branch Pneumococcal 20 2022-01-22 Completed Universit y of Conjugate, PCV20 00:00:00 [place] [facility] dical (Prevnar 20) Branch Pneumococcal 20 2022-01-22 Completed Universit y of Conjugate, PCV20 00:00:00 [facility] dical (Prevnar 20) Branch Pneumococcal 20 2022-01-22 Completed Universit y of Conjugate, PCV20 00:00:00 [facility] dical (Prevnar 20) Branch Pneumococcal 20 2022-01-22 Completed Universit y of Conjugate, PCV20 00:00:00 [facility] dical (Prevnar 20) Branch Pneumococcal 20 2022-01-22 Completed Universit y of Conjugate, PCV20 00:00:00 [facility] dical (Prevnar 20) Branch Pneumococcal 20 2022-01-22 Completed Universit y of Conjugate, PCV20 00:00:00 [facility] dical (Prevnar 20) Branch Pneumococcal 20 2022-01-22 Completed Universit y of Conjugate, PCV20 00:00:00 [facility] dical (Prevnar 20) Branch Pneumococcal 20 2022-01-22 Completed Universit y of Conjugate, PCV20 00:00:00 [facility] dical (Prevnar 20) Branch SARS-COV-2 COVID-19 2021-01-30 Completed Unive rsity of PFIZER VACCINE 00:00:00 [facility] Branch SARS-COV-2 COVID-19 2021-01-30 Completed Unive rsity of PFIZER VACCINE 00:00:00 [facility] Branch SARS-COV-2 COVID-19 2021-01-30 Completed Unive rsity of PFIZER VACCINE 00:00:00 [facility] Branch SARS-COV-2 COVID-19 2021-01-30 Completed Unive rsity of PFIZER VACCINE 00:00:[address] [facility] SARS-COV-2 COVID-19 2021-01-30 Completed Unive rsity of PFIZER VACCINE 00:00:00 [facility] Branch SARS-COV-2 COVID-19 2021-01-30 Completed Unive rsity of PFIZER VACCINE 00:00:[address] [facility] SARS-COV-2 COVID-19 2021-01-30 Completed Unive rsity of PFIZER VACCINE 00:00:00 [facility] Branch SARS-COV-2 COVID-19 2021-01-30 Completed Unive rsity of PFIZER VACCINE 00:00:[address] [facility] SARS-COV-2 COVID-19 2021-01-30 Completed Unive rsity of PFIZER VACCINE 00:00:[address] [facility] SARS-COV-2 COVID-19 2021-01-30 Completed Unive rsity of PFIZER VACCINE 00:00:[address] [facility] SARS-COV-2 COVID-19 2021-01-30 Completed Unive rsity of PFIZER VACCINE 00:00:[address] [facility] SARS-COV-2 COVID-19 2021-01-30 Completed Unive rsity of PFIZER VACCINE 00:00:[address] [facility] SARS-COV-2 COVID-19 2021-01-30 Completed Unive rsity of PFIZER VACCINE 00:00:[address] [facility] SARS-COV-2 COVID-19 2021-01-30 Completed Unive rsity of PFIZER VACCINE 00:00:[address] [facility] SARS-COV-2 COVID-19 2021-01-30 Completed Unive rsity of PFIZER VACCINE 00:00:00 [facility] Branch SARS-COV-2 COVID-19 2021-01-30 Completed Unive rsity of PFIZER VACCINE 00:00:[address] [facility] SARS-COV-2 COVID-19 2021-01-30 Completed Unive rsity of PFIZER VACCINE 00:00:[address] [facility] SARS-COV-2 COVID-19 2021-01-30 Completed Unive rsity of PFIZER VACCINE 00:00:[address] [facility] SARS-COV-2 COVID-19 2021-01-30 Completed Unive rsity of PFIZER VACCINE 00:00:[address] [facility] SARS-COV-2 COVID-19 2021-01-30 Completed Unive rsity of PFIZER VACCINE 00:00:[address] [facility] SARS-COV-2 COVID-19 2021-01-30 Completed Unive rsity of PFIZER VACCINE 00:00:[address] [facility] SARS-COV-2 COVID-19 2021-01-30 Completed Unive rsity of PFIZER VACCINE 00:00:[address] [facility] SARS-COV-2 COVID-19 2021-01-30 Completed Unive rsity of PFIZER VACCINE 00:00:[address] [facility] SARS-COV-2 COVID-19 2021-01-30 Completed Unive rsity of PFIZER VACCINE 00:00:[address] [facility] SARS-COV-2 COVID-19 2021-01-30 Completed Unive rsity of PFIZER VACCINE 00:00:[address] [facility] SARS-COV-2 COVID-19 2021-01-30 Completed Unive rsity of PFIZER VACCINE 00:00:00 [facility] Branch Pneumococcal 2020-12-15 Completed University o f [...] 2020-12-15 Completed University o f Polysaccharide, 00:00:00 [place] [facility] ical PPSV23 (PNEUMOVAX) Branch Pneumococcal 2020-12-15 Completed University o f Polysaccharide, 00:00:00 [place] [facility] ical PPSV23 (PNEUMOVAX) Branch Pneumococcal 2020-12-15 Completed University o f Polysaccharide, 00:00:00 [place] [facility] ical PPSV23 (PNEUMOVAX) Branch SARS-COV-2 COVID-19 2020-06-21 Completed Unive rsity of PFIZER VACCINE 00:00:00 [facility] Branch SARS-COV-2 COVID-19 2020-06-21 Completed Unive rsity of PFIZER VACCINE 00:00:00 [facility] Branch SARS-COV-2 COVID-19 2020-06-21 Completed Unive rsity of PFIZER VACCINE 00:00:[address] [facility] SARS-COV-2 COVID-19 2020-06-21 Completed Unive rsity of PFIZER VACCINE 00:00:00 [facility] Branch SARS-COV-2 COVID-19 2020-06-21 Completed Unive rsity of PFIZER VACCINE 00:00:00 [facility] SARS-COV-2 COVID-19 2020-06-21 Completed Unive rsity of PFIZER VACCINE 00:00:00 [facility] SARS-COV-2 COVID-19 2020-06-21 Completed Unive rsity of PFIZER VACCINE 00:00:[address] [facility] SARS-COV-2 COVID-19 2020-06-21 Completed Unive rsity of PFIZER VACCINE 00:00:00 [facility] Branch SARS-COV-2 COVID-19 2020-06-21 Completed Unive rsity of PFIZER VACCINE 00:00:00 [facility] Branch SARS-COV-2 COVID-19 2020-06-21 Completed Unive rsity of PFIZER VACCINE 00:00:[address] [facility] SARS-COV-2 COVID-19 2020-06-21 Completed Unive rsity of PFIZER VACCINE 00:00:[address] [facility] SARS-COV-2 COVID-19 2020-06-21 Completed Unive rsity of PFIZER VACCINE 00:00:[address] [facility] SARS-COV-2 COVID-19 2020-06-21 Completed Unive rsity of PFIZER VACCINE 00:00:00 [facility] Branch SARS-COV-2 COVID-19 2020-06-21 Completed Unive rsity of PFIZER VACCINE 00:00:00 [facility] SARS-COV-2 COVID-19 2020-06-21 Completed Unive rsity of PFIZER VACCINE 00:00:00 [facility] SARS-COV-2 COVID-19 2020-06-21 Completed Unive rsity of PFIZER VACCINE 00:00:00 [facility] SARS-COV-2 COVID-19 2020-06-21 Completed Unive rsity of PFIZER VACCINE 00:00:00 [facility] SARS-COV-2 COVID-19 2020-06-21 Completed Unive rsity of PFIZER VACCINE 00:00:00 [facility] SARS-COV-2 COVID-19 2020-06-21 Completed Unive rsity of PFIZER VACCINE 00:00:00 [facility] SARS-COV-2 COVID-19 2020-06-21 Completed Unive rsity of PFIZER VACCINE 00:00:00 [facility] SARS-COV-2 COVID-19 2020-06-21 Completed Unive rsity of PFIZER VACCINE 00:00:00 [facility] SARS-COV-2 COVID-19 2020-06-21 Completed Unive rsity of PFIZER VACCINE 00:00:00 [facility] SARS-COV-2 COVID-19 2020-06-21 Completed Unive rsity of PFIZER VACCINE 00:00:00 [facility] SARS-COV-2 COVID-19 2020-06-21 Completed Unive rsity of PFIZER VACCINE 00:00:00 [facility] SARS-COV-2 COVID-19 2020-06-21 Completed Unive rsity of PFIZER VACCINE 00:00:00 [facility] SARS-COV-2 COVID-19 2020-06-21 Completed Unive rsity of PFIZER VACCINE 00:00:00 [facility] SARS-COV-2 COVID-19 2020-06-21 Completed Unive rsity of PFIZER VACCINE 00:00:00 [facility] SARS-COV-2 COVID-19 2020-06-21 Completed Unive rsity of PFIZER VACCINE 00:00:00 [facility] SARS-COV-2 COVID-19 2020-06-21 Completed Unive rsity of PFIZER VACCINE 00:00:[address] [facility] SARS-COV-2 COVID-19 2020-06-21 Completed Unive rsity of PFIZER VACCINE 00:00:00 [facility] SARS-COV-2 COVID-19 2020-06-21 Completed Unive rsity of PFIZER VACCINE 00:00:[address] [facility] SARS-COV-2 COVID-19 2020-06-21 Completed Unive rsity of PFIZER VACCINE 00:00:00 [facility] Branch SARS-COV-2 COVID-19 2020-06-21 Completed Unive rsity of PFIZER VACCINE 00:00:[address] [facility] SARS-COV-2 COVID-19 2020-06-21 Completed Unive rsity of PFIZER VACCINE 00:00:[address] [facility] SARS-COV-2 COVID-19 2020-06-21 Completed Unive rsity of PFIZER VACCINE 00:00:[address] [facility] SARS-COV-2 COVID-19 2020-05-31 Completed Unive rsity of PFIZER VACCINE 00:00:[address] [facility] SARS-COV-2 COVID-19 2020-05-31 Completed Unive rsity of PFIZER VACCINE 00:00:[address] [facility] SARS-COV-2 COVID-19 2020-05-31 Completed Unive rsity of PFIZER VACCINE 00:00:[address] [facility] SARS-COV-2 COVID-19 2020-05-31 Completed Unive rsity of PFIZER VACCINE 00:00:[address] [facility] SARS-COV-2 COVID-19 2020-05-31 Completed Unive rsity of PFIZER VACCINE 00:00:[address] [facility] SARS-COV-2 COVID-19 2020-05-31 Completed Unive rsity of PFIZER VACCINE 00:00:[address] [facility] SARS-COV-2 COVID-19 2020-05-31 Completed Unive rsity of PFIZER VACCINE 00:00:[address] [facility] SARS-COV-2 COVID-19 2020-05-31 Completed Unive rsity of PFIZER VACCINE 00:00:[address] [facility] SARS-COV-2 COVID-19 2020-05-31 Completed Unive rsity of PFIZER VACCINE 00:00:[address] [facility] SARS-COV-2 COVID-19 2020-05-31 Completed Unive rsity of PFIZER VACCINE 00:00:00 [facility] SARS-COV-2 COVID-19 2020-05-31 Completed Unive rsity of PFIZER VACCINE 00:00:[address] [facility] SARS-COV-2 COVID-19 2020-05-31 Completed Unive rsity of PFIZER VACCINE 00:00:00 [facility] SARS-COV-2 COVID-19 2020-05-31 Completed Unive rsity of PFIZER VACCINE 00:00:[address] [facility] SARS-COV-2 COVID-19 2020-05-31 Completed Unive rsity of PFIZER VACCINE 00:00:00 [facility] SARS-COV-2 COVID-19 2020-05-31 Completed Unive rsity of PFIZER VACCINE 00:00:[address] [facility] SARS-COV-2 COVID-19 2020-05-31 Completed Unive rsity of PFIZER VACCINE 00:00:[address] [facility] SARS-COV-2 COVID-19 2020-05-31 Completed Unive rsity of PFIZER VACCINE 00:00:[address] [facility] SARS-COV-2 COVID-19 2020-05-31 Completed Unive rsity of PFIZER VACCINE 00:00:[address] [facility] SARS-COV-2 COVID-19 2020-05-31 Completed Unive rsity of PFIZER VACCINE 00:00:[address] [facility] SARS-COV-2 COVID-19 2020-05-31 Completed Unive rsity of PFIZER VACCINE 00:00:00 [facility] SARS-COV-2 COVID-19 2020-05-31 Completed Unive rsity of PFIZER VACCINE 00:00:00 [facility] SARS-COV-2 COVID-19 2020-05-31 Completed Unive rsity of PFIZER VACCINE 00:00:00 [facility] SARS-COV-2 COVID-19 2020-05-31 Completed Unive rsity of PFIZER VACCINE 00:00:[address] [facility] SARS-COV-2 COVID-19 2020-05-31 Completed Unive rsity of PFIZER VACCINE 00:00:[address] [facility] SARS-COV-2 COVID-19 2020-05-31 Completed Unive rsity of PFIZER VACCINE 00:00:[address] [facility] SARS-COV-2 COVID-19 2020-05-31 Completed Unive rsity of PFIZER VACCINE 00:00:[address] [facility] SARS-COV-2 COVID-19 2020-05-31 Completed Unive rsity of PFIZER VACCINE 00:00:[address] [facility] SARS-COV-2 COVID-19 2020-05-31 Completed Unive rsity of PFIZER VACCINE 00:00:[address] [facility] SARS-COV-2 COVID-19 2020-05-31 Completed Unive rsity of PFIZER VACCINE 00:00:[address] [facility] SARS-COV-2 COVID-19 2020-05-31 Completed Unive rsity of PFIZER VACCINE 00:00:[address] [facility] SARS-COV-2 COVID-19 2020-05-31 Completed Unive rsity of PFIZER VACCINE 00:00:[address] [facility] SARS-COV-2 COVID-19 2020-05-31 Completed Unive rsity of PFIZER VACCINE 00:00:[address] [facility] SARS-COV-2 COVID-19 2020-05-31 Completed Unive rsity of PFIZER VACCINE 00:00:[address] [facility] SARS-COV-2 COVID-19 2020-05-31 Completed Unive rsity of PFIZER VACCINE 00:00:[address] [facility] SARS-COV-2 COVID-19 2020-05-31 Completed Unive rsity of PFIZER VACCINE 00:00:[address] [facility] Pneumococcal 2020-03-03 Completed University o f Polysaccharide, 00:00:00 [place] [facility] PPSV23 (PNEUMOVAX) Branch Pneumococcal 2020-03-03 Completed University o f Polysaccharide, 00:00:00 [place] [facility] PPSV23 (PNEUMOVAX) Branch Pneumococcal 2020-03-03 Completed University o f Polysaccharide, 00:00:00 [place] [facility] PPSV23 (PNEUMOVAX) Branch Pneumococcal 2020-03-03 Completed University o f Polysaccharide, 00:00:00 [place] [facility] ical PPSV23 (PNEUMOVAX) Branch Pneumococcal 2020-03-03 Completed University o f Polysaccharide, 00:00:00 [place] [facility] PPSV23 (PNEUMOVAX) Branch Pneumococcal 2020-03-03 [...] Universit y of Vaccine Quad ID 00:00:00 [facility] ica 18-64 YRS Branch Influenza Virus 2019-12-04 Completed Universit y of Vaccine Recomb Quad 00:00:00 [facility] IM, Preserv and ABX Branc h Free 18-64 YRS Influenza Virus 2019-12-04 Completed Universit y of Vaccine Quad ID 00:00:00 [facility] ica 18-64 YRS Branch Influenza Virus 2019-12-04 Completed Universit y of Vaccine Recomb Quad 00:00:00 [place] [facility] IM, Preserv and ABX Branc h Free 18-64 YRS Influenza Virus 2019-12-04 Completed Universit y of Vaccine Quad ID 00:00:00 [facility] ica 18-64 YRS Branch Influenza Virus 2019-12-04 Completed Universit y of Vaccine Recomb Quad 00:00:00 [place] [facility] IM, Preserv and ABX Branc h Free 18-64 YRS Influenza Virus 2019-12-04 Completed Universit y of Vaccine Quad ID 00:00:00 [place] [facility] 18-64 YRS Branch Influenza Virus 2019-12-04 Completed Universit y of Vaccine Recomb Quad 00:00:00 [place] [facility] IM, Preserv and ABX Branc h Free 18-64 YRS Influenza Virus 2019-12-04 Completed Universit y of Vaccine Quad ID 00:00:00 [facility] ical 18-64 YRS Branch Influenza Virus 2019-12-04 Completed Universit y of Vaccine Recomb Quad 00:00:00 [place] [facility] IM, Preserv and ABX Branc h Free 18-64 YRS Influenza Virus 2019-12-04 Completed Universit y of Vaccine Quad ID 00:00:00 [facility] ica 18-64 YRS Branch Influenza Virus 2019-12-04 Completed Universit y of Vaccine Recomb Quad 00:00:00 [place] [facility] IM, Preserv and ABX Branc h Free 18-64 YRS Influenza Virus 2019-12-04 Completed Universit y of Vaccine Quad ID 00:00:00 [facility] 18-64 YRS [place] Influenza Virus 2019-12-04 Completed Universit y of Vaccine Recomb Quad 00:00:00 [place] [facility] IM, Preserv and ABX Branc h Free 18-64 YRS Influenza Virus 2019-12-04 Completed Universit y of Vaccine Quad ID 00:00:00 [facility] ica 18-64 YRS Branch Influenza Virus 2019-12-04 Completed Universit y of Vaccine Recomb Quad 00:00:00 [place] [facility] IM, Preserv and ABX Branc h Free 18-64 YRS Influenza Virus 2019-12-04 Completed Universit y of Vaccine Quad ID 00:00:00 [facility] 18-64 YRS Branch Influenza Virus 2019-12-04 Completed Universit y of Vaccine Recomb Quad 00:00:00 [place] [facility] IM, Preserv and ABX Branc h Free 18-64 YRS Influenza Virus 2019-12-04 Completed Universit y of Vaccine Quad ID 00:00:00 [facility] ica 18-64 YRS Branch Influenza Virus 2019-12-04 Completed Universit y of Vaccine Recomb Quad 00:00:00 [place] [facility] IM, Preserv and ABX Branc h Free 18-64 YRS Influenza Virus 2019-12-04 Completed Universit y of Vaccine Quad ID 00:00:00 [facility] ica 18-64 YRS Branch Influenza [...] ID 00:00:00 [place] [facility] 18-64 YRS [place] Influenza Virus 2019-12-04 Completed Universit y of Vaccine Recomb Quad 00:00:00 [place] [facility] IM, Preserv and ABX Branc h Free 18-64 YRS Influenza Virus 2019-12-04 Completed Universit y of Vaccine Quad ID 00:00:00 [place] [facility] ical 18-64 YRS [place] Influenza Virus 2019-12-04 Completed Universit y of [...] Universit y of Vaccine Quad ID 00:00:00 [place] [facility] 18-[facility] Y[facility] [place] Influenza Virus 2019-12-04 Completed Universit y of Vaccine Quad ID 00:00:00 [place] [facility] 18-64 Y[facility] Branch Influenza Virus [...] [facility]it y of Vaccine Quad ID 00:00:00 [place] [facility] 18-64 YRS Branch Influenza Virus 2019-12-04 Completed [facility]it y of Vaccine Recomb Quad 00:00:00 [facility], Preserv and ABX Branc h Free 18-64 YRS Influenza Virus 2019-12-04 Completed [facility]it y of Vaccine Quad ID 00:00:00 [place] [facility] 18-64 YRS Branch Influenza Virus 2019-12-04 Completed [facility]it y of Vaccine Recomb Quad 00:00:00 [facility], Preserv and ABX Branc h Free 18-64 YRS Influenza Virus 2019-12-04 Completed [facility]it y of Vaccine Quad ID 00:00:00 [place] [facility] 18-64 YRS Branch Influenza Virus 2019-12-04 Completed [facility]it y of Vaccine Recomb Quad 00:00:00 [facility], Preserv and ABX Branc h Free 18-64 YRS Influenza Virus 2019-12-04 Completed [facility]it y of Vaccine Quad ID 00:00:00 [place] [facility] 18-64 YRS Branch Influenza Virus 2019-12-04 Completed [facility]it y of Vaccine Recomb Quad 00:00:00 [facility], Preserv and ABX Branc h Free 18-64 YRS Influenza Virus 2019-12-04 Completed [facility]it y of Vaccine Quad ID 00:00:00 [place] [facility] 18-64 YRS Branch Influenza Virus 2019-12-04 Completed [facility]it y of Vaccine Recomb Quad 00:00:00 [facility], Preserv and ABX Branc h Free 18-64 YRS Influenza Virus 2019-12-04 Completed [facility]it y of Vaccine Quad ID 00:00:00 [facility] ical 18-64 YRS Branch Influenza Virus 2019-12-04 Completed [facility]it y of Vaccine Recomb Quad 00:00:00 [facility] IM, Preserv and ABX Branc h Free 18-64 YRS Influenza Virus 2019-12-04 Completed [facility]it y of Vaccine Quad ID 00:00:00 [facility] ical 18-64 YRS Branch Influenza Virus 2019-12-04 Completed [facility]it y of Vaccine Recomb Quad 00:00:00 [place] [facility] IM, Preserv and ABX Branc h Free 18-64 YRS Influenza Virus 2019-12-04 Completed Universit y of Vaccine Quad ID 00:00:00 [facility] ical 18-64 YRS Branch Influenza Virus 2019-12-04 Completed Universit y of Vaccine Recomb Quad 00:00:00 [place] [facility] IM, Preserv and ABX Branc h Free 18-64 YRS Influenza Virus 2019-12-04 Completed Universit y of Vaccine Quad ID 00:00:00 [facility] ica 18-64 YRS [place] Influenza Virus 2019-12-04 Completed [facility]it y of Vaccine Recomb Quad 00:00:00 [facility] IM, Preserv and ABX Branc h Free 18-64 YRS Influenza Virus 2019-12-04 Completed [facility]it y of Vaccine Quad ID 00:00:00 [facility] ical 18-64 YRS [place] Influenza Virus 2019-12-04 Completed [facility]it y of Vaccine Recomb Quad 00:00:00 [facility] IM, Preserv and ABX Branc h Free 18-64 YRS Influenza Virus 2019-12-04 Completed [facility]it y of Vaccine Quad ID 00:00:00 [facility] ical 18-64 YRS [place] Influenza Virus 2019-12-04 Completed [facility]it y of Vaccine Quad ID 00:00:00 [place] [facility] 18-64 YRS [place] Influenza Virus 2019-12-04 Completed [facility]it y of Vaccine Recomb Quad 00:00:00 [facility] IM, Preserv and ABX Branc h Free 18-64 YRS Influenza Virus 2019-12-04 Completed [facility]it y of Vaccine Recomb Quad 00:00:00 [facility] IM, Preserv and ABX Branc h Free 18-64 YRS Influenza Virus 2019-12-04 Completed [facility]it y of Vaccine Quad ID 00:00:00 [place] [facility] 18-64 YRS [place] Influenza Virus 2019-12-04 Completed [facility]it y of Vaccine Recomb Quad 00:00:00 [facility] IM, Preserv and ABX Branc h Free 1865 YRS Influenza Virus 2019-12-04 Completed Universit y [...] [facility]it y of Vaccine Quad ID 00:00:00 [place] [facility] 18-64 Y[facility] Branch Influenza Virus 2019-12-04 Completed [facility]it y of Vaccine Recomb Quad 00:00:00 [facility] IM, Preserv and ABX Branc h Free 18-64 YRS Influenza Virus 2019-12-04 Completed [facility]it y of Vaccine Quad ID 00:00:00 [facility] ical 18-64 YRS [place] Influenza Virus 2019-12-04 Completed [facility]it y of Vaccine Recomb Quad 00:00:00 [facility] IM, Preserv and ABX Branc h Free 18-64 YRS Influenza Virus 2019-12-04 Completed [facility]it y of Vaccine Quad ID 00:00:00 [facility] ical 18-64 YRS [place] Influenza Virus 2019-12-04 Completed [facility]it y of Vaccine Recomb Quad 00:00:00 [facility] IM, Preserv and ABX Branc h Free 18-64 YRS Influenza Virus 2019-12-04 Completed [facility]it y of Vaccine Quad ID 00:00:00 [place] [facility] 18-64 YRS [place] Influenza Virus 2019-12-04 Completed [facility]it y of Vaccine Recomb Quad 00:00:00 [facility] IM, Preserv and ABX Branc h Free 18-64 YRS Influenza Virus 2019-12-04 Completed [facility]it y of Vaccine Quad ID 00:00:00 [place] [facility] 18-64 YRS [place] Influenza Virus 2019-12-04 Completed [facility]it y of Vaccine Recomb Quad 00:00:00 [facility] IM, Preserv and ABX Branc h Free 18-64 YRS Influenza Virus 2019-12-04 Completed [facility]it y of Vaccine Quad ID 00:00:00 [facility] ical 18-64 YRS Branch Influenza [...] y of Vaccine Quad ID 00:00:00 [facility] ical 18-64 YRS Branch Influenza Virus [...] [facility]it y of Vaccine Quad ID 00:00:00 [place] [facility] 18-64 Y[facility] Branch Influenza Virus [...] [facility]it y of Vaccine Recomb Quad 00:00:00 [facility] IM, Preserv and ABX Branc h Free 18-64 YRS Influenza Virus 2019-01-10 Completed [facility]it y of Vaccine Quad ID 00:00:00 [facility] ical 18-64 YRS Branch Influenza Virus 2019-01-10 Completed Universit y of Vaccine Quad ID 00:00:00 [facility] ical 18-64 YRS Branch Influenza Virus 2019-01-10 Completed [facility]it y of Vaccine Quad ID 00:00:00 [facility] ical 18-64 YRS Branch Influenza Virus 2019-01-10 Completed [facility]it y of Vaccine Quad ID 00:00:00 [facility] ica 18-64 YRS Branch Influenza Virus 2019-01-10 Completed Universit y of Vaccine Quad ID 00:00:00 [facility] ica 18-64 YRS Branch Influenza Virus 2019-01-10 Completed [facility]it y of Vaccine Quad ID 00:00:00 [facility] ica 18-64 YRS Branch Influenza Virus 2019-01-10 Completed [facility]it y of Vaccine Quad ID 00:00:00 [facility] ica 18-64 YRS Branch Influenza Virus 2019-01-10 Completed [facility]it y of Vaccine Quad ID 00:00:00 [facility] ica 18-64 YRS Branch Influenza Virus 2019-01-10 Completed [facility]it y of Vaccine Quad ID 00:00:00 [facility] ica 18-64 YRS Branch Influenza Virus 2019-01-10 Completed [facility]it y of Vaccine Quad ID 00:00:00 [facility] ical 18-64 YRS Branch Influenza Virus 2019-01-10 Completed [facility]it y of Vaccine Quad ID 00:00:00 [facility] ical 18-64 YRS Branch Influenza Virus 2019-01-10 Completed [facility]it y of Vaccine Quad ID 00:00:00 [facility] ical 18-64 YRS Branch Influenza Virus 2019-01-10 Completed [facility]it y of Vaccine Quad ID 00:00:00 [facility] ical 18-64 YRS Branch Influenza Virus 2019-01-10 Completed [facility]it y of Vaccine Quad ID 00:00:00 [facility] ica 18-64 YRS Branch Influenza Virus 2019-01-10 Completed [facility]it y of Vaccine Quad ID 00:00:00 [facility] ica 18-64 YRS Branch Influenza Virus 2019-01-10 Completed [...] Universit y of Vaccine Quad ID 00:00:00 [facility] ical 18-64 YRS Branch Influenza Virus 2019-01-10 Completed [facility] of Vaccine Quad ID 00:00:00 [place] [facility] 18-64 YRS Branch Influenza Virus 2019-01-10 Completed [facility] of Vaccine Quad ID 00:00:00 [place] [facility] 18-64 YRS Branch Influenza Virus 2019-01-10 Completed [facility] y of Vaccine Quad ID 00:00:00 [place] [facility] 18-64 YRS Branch Influenza Virus 2019-01-10 Completed [facility] of Vaccine Quad ID 00:00:00 [place] [facility] 18-64 YRS Branch Influenza Virus [...] [facility]it y of Vaccine Quad ID 00:00:00 [facility] ical 18-64 YRS Branch Influenza Virus 2019-01-10 Completed [facility]it y of Vaccine Quad ID 00:00:00 [facility] ical 18-64 YRS Branch Influenza Virus 2019-01-10 Completed [facility]it y of Vaccine Quad ID 00:00:00 [facility] ical 18-64 YRS Branch Influenza Virus 2019-01-10 Completed [facility]it y of Vaccine Quad ID 00:00:00 [facility] ical 18-64 YRS Branch Influenza Virus 2019-01-10 Completed [facility]it y of Vaccine Quad ID 00:00:00 [facility] ical 18-64 YRS Branch Influenza Virus 2019-01-10 Completed [facility]it y of Vaccine Quad ID 00:00:00 [facility] ical 18-64 YRS Branch Influenza Virus [...] [facility]it y of Vaccine Quad ID 00:00:00 [place] [facility] 18-64 Y[facility] Branch Influenza Virus 2019-01-10 Completed [facility] y of Vaccine Quad ID 00:00:00 [place] [facility] 18-64 YRS Branch Influenza Virus 2019-01-10 Completed [facility] y of Vaccine Quad ID 00:00:00 [place] [facility] 18-64 YRS Branch Influenza Virus [...] [facility]it y of Vaccine Quad ID 00:00:00 [place] [facility] 18-64 YRS Branch Influenza Virus 2019-01-10 Completed [facility] of Vaccine Quad ID 00:00:00 [place] [facility] 18-64 YRS Branch Influenza Virus 2019-01-10 Completed [facility]it y of Vaccine Quad ID 00:00:00 [facility] ical 18-64 YRS Branch Influenza Virus 2019-01-10 Completed [facility]it y of Vaccine Quad ID 00:00:00 [facility] ica 18-64 YRS Branch Tdap 2012-11-02 Completed University of 00:00:00 [facility] Branch TDAP 2012-11-02 Completed University of 00:00:00 [facility] Branch TDAP 2012-11-02 Completed University of 00:00:00 [facility] Branch Tdap 2012-11-02 Completed University of 00:00:00 [facility] Branch TDAP 2012-11-02 Completed University of 00:00:00 [facility] Branch TDAP 2012-11-02 Completed University of 00:00:00 [facility] Branch TDAP 2012-11-02 Completed University of 00:00:00 [facility] Branch TDAP 2012-11-02 Completed University of 00:00:00 [facility] Branch Tdap 2012-11-02 Completed University of 00:00:00 [facility] Branch TDAP 2012-11-02 Completed University of 00:00:00 [facility] Branch TDAP 2012-11-02 Completed University of 00:00:00 [facility] Branch TDAP 2012-11-02 Completed University of 00:00:00 [facility] Branch TDAP 2012-11-02 Completed University of 00:00:00 [facility] Branch Tdap 2012-11-02 Completed University of 00:00:00 [facility] Branch TDAP 2012-11-02 Completed University of 00:00:00 [facility] Branch TDAP 2012-11-02 Completed [facility] of 00:00:00 [facility] TDAP 2012-11-02 Completed University of 00:00:00 [facility] TDAP 2012-11-02 Completed [facility] of 00:00:00 [facility] TDAP 2012-11-02 Completed [facility] of 00:00:00 [facility] TDAP 2012-11-02 Completed University of 00:00:00 [facility] Tdap 2012-11-02 Completed University of 00:00:00 [facility] Tdap 2012-11-02 Completed University of 00:00:00 [facility] Tdap 2012-11-02 Completed [facility] of 00:00:00 [facility] TDAP 2012-11-02 Completed [facility] of 00:00:00 [facility] TDAP 2012-11-02 Completed [facility] of 00:00:00 [facility] TDAP 2012-11-02 Completed [facility] of 00:00:00 [facility] TDAP 2012-11-02 Completed [facility] of 00:00:00 [facility] TDAP 2012-11-02 Completed University of 00:00:00 [facility] Branch TDAP 2012-11-02 Completed University of 00:00:00 [facility] TDAP 2012-11-02 Completed [facility] of 00:00:00 [facility] TDAP 2012-11-02 Completed [facility] of 00:00:00 [facility] TDAP 2012-11-02 Completed [facility] of 00:00:00 [facility] TDAP 2012-11-02 Completed [facility] of 00:00:00 [facility] TDAP 2012-11-02 Completed University of 00:00:00 [facility] Branch TDAP 2012-11-02 Completed University of 00:00:00 [facility] TDAP 2012-11-02 Completed [facility] of 00:00:00 [facility] TDAP 2012-11-02 Completed [facility] of 00:00:00 [facility] TDAP 2012-11-02 Completed [facility] of 00:00:00 [facility] TDAP 2012-11-02 Completed [facility] of 00:00:00 [facility] TDAP 2012-11-02 Completed [facility] of 00:00:00 [facility] TDAP 2012-11-02 Completed [facility] 00:00:00 [facility] TDAP 2012-11-02 Completed [facility] of 00:00:00 [facility] TDAP 2012-11-02 Completed [facility] of 00:00:00 [facility] TDAP 2012-11-02 Completed University of 00:00:00 [facility] TDAP 2012-11-02 Completed University of 00:00:00 [facility] TDAP 2012-11-02 Completed University of 00:00:00 [facility] TDAP 2012-11-02 Completed University of 00:00:00 [facility] TDAP 2012-11-02 Completed University of 00:00:00 [facility] TDAP 2012-11-02 Completed University of 00:00:00 [facility] TDAP 2012-11-02 Completed University of 00:00:00 [facility] TDAP 2012-11-02 Completed University of 00:00:00 [facility] Tdap 2012-11-02 Completed University of 00:00:00 [facility] TDAP 2012-11-02 Completed University of 00:00:00 [facility] TDAP 2012-11-02 Completed University of 00:00:00 [facility] TDAP 2012-11-02 Completed University of 00:00:00 [facility] TDAP 2012-11-02 Completed University of 00:00:00 [facility] Tdap 2012-11-02 Completed University of 00:00:00 [facility] TDAP 2012-11-02 Completed University of 00:00:00 [facility] TDAP 2012-11-02 Completed University of 00:00:00 [facility] TDAP 2012-11-02 Completed University of 00:00:00 [facility] Tdap 2012-11-02 Completed University of 00:00:00 [facility] TDAP 2012-11-02 Completed University of 00:00:00 [facility] TDAP 2012-11-02 Completed University of 00:00:00 [facility] TDAP Unknown Completed University of [facility] Influenza Virus Unknown Completed [facility] y of Vaccine Quad ID [place] [facility] 18-64 Y[facility] Influenza Virus Unknown Completed [facility] y of Vaccine Quad ID [place] [facility] 18-64 Y[facility] Branch Influenza Virus Unknown Completed Universit y of Vaccine Recomb Quad [facility] IM, Preserv and ABX Branc h Free 18-64 YRS Pneumococcal Unknown Completed University o f Polysaccharide, [place] [facility] PPSV23 (PNEUMOVAX) Branch SARS-COV-2 COVID-19 Unknown Completed Unive rsity of PFIZER VACCINE [facility] SARS-COV-2 COVID-19 Unknown Completed Unive rsity of PFIZER VACCINE [facility] Pneumococcal Unknown Completed University o f Polysaccharide, [place] [facility] PPSV23 (PNEUMOVAX) Branch SARS-COV-2 COVID-19 Unknown Completed Unive rsity of PFIZER VACCINE [facility] Branch Pneumococcal 20 Unknown Completed Universit y of Conjugate, PCV20 [place] [facility] (Prevnar 20) Branch SARS-COV-2 COVID-19 Unknown Completed Unive rsity of [facility]CR[facility] [place] [facility] VACCINE 12 YRS+, Branch BIVALENT 0.3ML, IM, (PFIZER PADILLA TOP) TDAP Unknown Completed [facility] Influenza Virus Unknown Completed [facility]it y of Vaccine Quad ID [place] [facility] 18-64 YRS Branch Influenza Virus Unknown Completed [facility] y of Vaccine Quad ID [place] [facility] 18-64 YRS Branch Influenza Virus Unknown Completed Universit y of Vaccine Recomb Quad [facility] IM, Preserv and ABX Branc h Free 18-64 YRS Pneumococcal Unknown Completed University o f Polysaccharide, [place] [facility] PPSV23 (PNEUMOVAX) Branch SARS-COV-2 COVID-19 Unknown Completed Unive rsity of PFIZER VACCINE [facility] Branch SARS-COV-2 COVID-19 Unknown Completed Unive rsity of PFIZER VACCINE [facility] Branch Pneumococcal Unknown Completed University o f Polysaccharide, [place] [facility] PPSV23 (PNEUMOVAX) Branch SARS-COV-2 COVID-19 Unknown Completed Unive rsity of PFIZER VACCINE [facility] Branch Pneumococcal 20 Unknown Completed Universit y of Conjugate, PCV20 [facility] dical (Prevnar 20) Branch SARS-COV-2 COVID-19 Unknown Completed Unive rsity of [facility]CR[facility] [place] [facility] VACCINE 12 YRS+, Branch BIVALENT 0.3ML, IM, (PFIZER PADILLA TOP) TDAP Unknown Completed [facility] Influenza Virus Unknown Completed [facility]it y of Vaccine Quad ID [place] [facility] 18-64 YRS Branch Influenza Virus Unknown Completed [facility] y of Vaccine Quad ID [place] [facility] 18-64 YRS Branch Influenza Virus Unknown Completed Universit y of Vaccine Recomb Quad [facility] IM, Preserv and ABX Branc h Free 18-64 YRS Pneumococcal Unknown Completed University o f Polysaccharide, [place] [facility] PPSV23 (PNEUMOVAX) Branch SARS-COV-2 COVID-19 Unknown Completed Unive rsity of PFIZER VACCINE [facility] Branch SARS-COV-2 COVID-19 Unknown Completed Unive rsity of PFIZER VACCINE [facility] Branch Pneumococcal Unknown Completed University o f Polysaccharide, [place] [facility] PPSV23 (PNEUMOVAX) Branch SARS-COV-2 COVID-19 Unknown Completed Unive rsity of PFIZER VACCINE [facility] Pneumococcal 20 Unknown Completed Universit y of Conjugate, PCV20 [place] [facility] (Prevnar 20) Branch SARS-COV-2 COVID-19 Unknown Completed Unive rsity of [place]-[facility] [place] [facility] VACCINE 12 YRS+, Branch BIVALENT 0.3ML, IM, (PFIZER PADILLA TOP) TDAP Unknown Completed [facility] Influenza Virus Unknown Completed [facility]it y of Vaccine Quad ID [place] [facility] 18-64 YRS Branch Influenza Virus Unknown Completed [facility] y of Vaccine Quad ID [place] [facility] 18-64 YRS Branch Influenza Virus Unknown Completed Universit y of Vaccine Recomb Quad [facility] IM, Preserv and ABX Branc h Free 18-64 YRS Pneumococcal Unknown Completed University o f Polysaccharide, [place] [facility] PPSV23 (PNEUMOVAX) Branch SARS-COV-2 COVID-19 Unknown Completed Unive rsity of PFIZER VACCINE [facility] Branch SARS-COV-2 COVID-19 Unknown Completed Unive rsity of PFIZER VACCINE [facility] Pneumococcal Unknown Completed University o f Polysaccharide, [place] [facility] PPSV23 (PNEUMOVAX) Branch SARS-COV-2 COVID-19 Unknown Completed Unive rsity of PFIZER VACCINE [facility] Pneumococcal 20 Unknown Completed Universit y of Conjugate, PCV20 [facility] dical (Prevnar 20) Branch TDAP Unknown Completed [facility] Influenza Virus Unknown Completed [facility]it y of Vaccine Quad ID [place] [facility] 18-64 YRS Branch Influenza Virus Unknown Completed [facility] y of Vaccine Quad ID [place] [facility] 18-64 YRS Branch Influenza Virus Unknown Completed Universit y of Vaccine Recomb Quad [facility] IM, Preserv and ABX Branc h Free 18-64 YRS Pneumococcal Unknown Completed University o f Polysaccharide, [place] [facility] PPSV23 (PNEUMOVAX) Branch SARS-COV-2 COVID-19 Unknown Completed Unive rsity of PFIZER VACCINE [facility] SARS-COV-2 COVID-19 Unknown Completed Unive rsity of PFIZER VACCINE [facility] Vital Signs Vital Name Observation Time Observation Value Comments Source HEIGHT 2020-11-04 172.7 cm 21:44:00 WEIGHT 2020-11-04 95.709 kg 21:44:00 Systolic blood 2022-10-27 130 mm[Hg] University of pressure 15:11:00 [facility] Diastolic blood 2022-10-27 80 mm[Hg] University o f pressure 15:11:00 [facility] Heart rate 2022-10-27 84 /min University of 14:55:00 [facility] Body weight 2022-10-27 93.486 kg University of 14:42:00 [facility] BMI 2022-10-27 29.57 kg/m2 University of 14:42:00 [facility] Systolic blood 2022-10-15 152 mm[Hg] University of pressure 18:04:00 [facility] Diastolic blood 2022-10-15 90 mm[Hg] University o f pressure 18:04:00 [facility] Heart rate 2022-10-15 67 /min University of 18:03:00 [facility] Body temperature 2022-10-15 36.72 [place] University of 18:03:00 [facility] Body height 2022-10-15 177.8 cm University of 18:03:00 [facility] Body weight 2022-10-15 93.441 kg University of 18:03:00 [facility] BMI 2022-10-15 29.56 kg/m2 University of 18:03:00 [facility] Oxygen saturation 2022-10-15 99 /min University of in Arterial blood 18:03:00 [facility] by Pulse oximetry Branch Systolic blood 2022-02-01 139 mm[Hg] University of pressure 16:26:00 [facility] Diastolic blood 2022-02-01 82 mm[Hg] University o f pressure 16:26:00 [facility] Heart rate 2022-02-01 71 /min University of 16:25:00 [facility] Body height 2022-02-01 177.8 cm University of 16:25:00 [facility] Body weight 2022-02-01 95.255 kg University of 16:25:00 [facility] BMI 2022-02-01 30.13 kg/m2 University of 16:25:00 [facility] Oxygen saturation 2022-02-01 98 /min University of in Arterial blood 16:25:00 [place] [facility] Pulse oximetry Branch Systolic blood 2022-01-22 148 mm[Hg] University of pressure 14:45:00 [facility] Diastolic blood 2022-01-22 83 mm[Hg] University o f pressure 14:45:00 [facility] Heart rate 2022-01-22 85 /min University of 14:44:00 [facility] Body temperature 2022-01-22 36.56 [place] University of 14:44:00 [facility] Body height 2022-01-22 172.7 cm University of 14:44:00 [facility] Body weight 2022-01-22 95.255 kg University of 14:44:00 [facility] BMI 2022-01-22 31.93 kg/m2 University of 14:44:00 [facility] Oxygen saturation 2022-01-22 98 /min [facility] in Arterial blood 14:44:00 [facility] Pulse oximetry Branch HEIGHT 2020-11-04 172.7 cm 21:44:00 WEIGHT 2020-11-04 95.709 kg 21:44:00 Systolic blood 2020-09-02 143 mm[Hg] University of pressure 15:15:00 [facility] Diastolic blood 2020-09-02 90 mm[Hg] University o f pressure 15:15:00 [facility] Heart rate 2020-09-02 65 /min University of 15:15:00 [facility] Body height 2020-09-02 175.3 cm University of 15:12:00 [facility] Body weight 2020-09-02 98.431 kg University of 15:12:00 [facility] BMI 2020-09-02 32.05 kg/m2 University of 15:12:00 [facility] Systolic blood 2020-09-02 143 mm[Hg] University of pressure 15:15:00 [facility] Diastolic blood 2020-09-02 90 mm[Hg] University o f pressure 15:15:00 [facility] Heart rate 2020-09-02 65 /min University of 15:15:00 [facility] Body height 2020-09-02 175.3 cm University of 15:12:00 [facility] Body weight 2020-09-02 98.431 kg University of 15:12:00 [facility] BMI 2020-09-02 32.05 kg/m2 University of 15:12:00 [facility] Systolic blood 2020-05-09 145 mm[Hg] University of pressure 15:33:00 [facility] Diastolic blood 2020-05-09 99 mm[Hg] University o f pressure 15:33:00 [facility] Heart rate 2020-05-09 73 /min University of 15:04:00 [facility] Body temperature 2020-05-09 36 Abbey University of 15:04:00 [facility] Body height 2020-05-09 175.3 cm University of 15:04:00 [facility] Body weight 2020-05-09 102.967 kg University of 15:04:00 [facility] BMI 2020-05-09 33.52 kg/m2 University of 15:04:00 [facility] Oxygen saturation 2020-05-09 99 /min University in Arterial blood 15:04:00 [facility] by Pulse oximetry Branch Systolic blood 2020-03-03 143 mm[Hg] patient has not University of pressure 16:38:00 taken his [place] [facility] medications today Branch Diastolic blood 2020-03-03 93 mm[Hg] patient has not Universit y of pressure 16:38:00 taken his [place] [facility] medications today Branch Heart rate 2020-03-03 98 /min University of 16:38:00 [facility] Body temperature 2020-03-03 36.61 Abbey University of 16:38:00 [facility] Body height 2020-03-03 175.3 cm University of 16:38:00 [facility] Body weight 2020-03-03 102.059 kg University of 16:38:00 [facility] BMI 2020-03-03 33.23 kg/m2 University of 16:38:00 [facility] Systolic blood 2018-10-30 155 mm[Hg] University of pressure 14:14:00 [facility] Diastolic blood 2018-10-30 98 mm[Hg] University o f pressure 14:14:00 [facility] Heart rate 2018-10-30 63 /min University of 14:14:00 [facility] Body temperature 2018-10-30 37.06 Abbey University of 14:14:00 [facility] Respiratory rate 2018-10-30 16 /min University of 14:14:00 [facility] Body height 2018-10-30 175.3 cm University of 14:14:00 [facility] Body weight 2018-10-30 103.42 kg University of 14:14:00 [facility] BMI 2018-10-30 33.67 kg/m2 University of 14:14:00 [facility] Procedures Procedure Date / Time Performing Clinician Source Performed [facility] PATIENT FINANCIAL 2022-10-27 14:39:54 Doctor Unassigned, Un [facility] POLICY [place] [facility] URINALYSIS 2022-10-15 18:47:00 Darby Nielsen [facility] PROSTATIC SPECIFIC 2022-10-15 18:45:00 Rosaura Castillo [facility] ANTIGEN SCREEN Medical Branch THYROID STIMULATING 2022-10-15 18:45:00 Rosaura Castillo [facility] HORMONE Medical Branch COMP. METABOLIC PANEL 2022-10-15 18:45:00 Rosaura Castillo [facility] ([id number]) Medical Branch LIPID PANEL (03716)(TOTAL 2022-10-15 18:45:00 Rosaura Castillo [facility] CHOLESTEROL, Medical Branch TRIGLYCERIDES, HDL) CBC WITH DIFF 2022-10-15 18:45:00 Rosaura Castillo [facility] GLYCOSYLATED HEMOGLOBIN 2022-10-15 18:45:00 Rosaura Castillo [facility] (A1C) Medical [place] CBC WITH DIFF 2022-02-01 17:04:00 Clive [facility] FERRITIN SERUM 2022-02-01 17:04:00 Clive [facility] COMP. METABOLIC PANEL 2022-02-01 17:04:00 Darby Nielsen [facility] ([id number]) Medical Branch LIPID PANEL (70860)(TOTAL 2022-02-01 17:04:00 Darby Nielsen [facility] CHOLESTEROL, [facility] TRIGLYCERIDES, HDL) IRON PANEL 2022-02-01 17:04:00 Darby Nielsen [facility] GLYCOSYLATED HEMOGLOBIN 2022-02-01 17:04:00 Clive [facility] (A1C) Medical [place] SARS-COV-2 COVID-19 2022-02-01 16:41:37 Darby Nielsen [facility] MAY-SUCROSE VACCINE 12 Medical Branch YRS+, BIVALENT 0.3ML, IM, (PFIZER PADILLA TOP BOOSTER) PNEUMOCOCCAL 20 CONJUGATE 2022-01-22 15:08:02 Darby Nielsen [facility] (PREVNAR 20) VACCINE Medical [facility] ASSIGNMENT OF BENEFITS 2022-01-22 14:11:57 Doctor Unassigned, Un [facility] [place] [facility] SARS-COV-2 COVID-19 2021-01-30 14:05:55 Doctor Denise, [facility] VACCINE,0.3ML,IM (PFIZER) [place] [facility] l [facility] VACCINATIONS - CONSENTS, 2020-12-15 05:01:00 Doctor Denise [facility] ELIGIBILITY, HISTORY [place] [facility] SCANNED LAB RESULTS 2020-09-10 05:01:00 Doctor Denise, [facility] [place] [facility] PHYSICIAN CERTIFICATION 2020-05-16 06:01:00 [facility]id[facility] STAT[facility] [place] [facility] URINALYSIS 2020-03-03 18:33:00 Leonides Tran [facility] PROSTATIC SPECIFIC 2020-03-03 17:14:00 Leonides Tran [facility] ANTIGEN SCREEN [facility] THYROID STIMULATING 2020-03-03 17:14:00 Leonides Tran [facility] HORMONE [facility] COMP. METABOLIC PANEL 2020-03-03 17:14:00 Leonides Tran [facility] ([id number]) [facility] LIPID PANEL (95550)(TOTAL 2020-03-03 17:14:00 Leonides Tran [facility] CHOLESTEROL, [facility] TRIGLYCERIDES, HDL) CBC WITHOUT DIFF 2020-03-03 17:14:00 Leonides Tran [facility] GLYCOSYLATED HEMOGLOBIN 2020-03-03 17:14:00 Leonides Tran [facility] (A1C) [facility] VITAMIN D, 25-OH 2020-03-03 17:14:00 Leonides Tran [facility] PNEUMOCOCCAL VACCINE, 2020-03-03 16:57:58 Leonides Tran [facility] 23-VALENT (PNEUMOVAX) Medical Br anch VACCINATIONS - CONSENTS, 2019-12-27 05:01:00 Doctor Walker [facility] ELIGIBILITY, HISTORY [place] [facility] MEDICATION HISTORY 2018-12-06 05:01:00 Doctor Walker [facility] RECONCILIATION FORM [facility] [facility] AUTHORIZATION FOR RELEASE 2018-09-29 05:01:00 Doctor Unassigned, [facility] [place] [facility] PATIENT QUESTIONNAIRE 2015-07-10 05:01:00 Doctor Unassigned, [facility] Name Medical [place] PATIENT QUESTIONNAIRE 2015-06-19 05:01:00 Doctor Unassigned, [facility] Medical [place] Plan of Care Planned Activity Planned Date [...] [facility] 00:00:00 2) [code = SHINGLES [facility] VACCINES (1 of 2)] Future Scheduled 2004 SHINGLES VACCINES ([address] [facility] 00:00:00 2) [code = SHINGLES [facility] VACCINES (1 of 2)] Future Scheduled [...] colon Medical Ce nter (procedure) [code = 337261074] Future Scheduled 1954 Screening for malignant [facility] Test 00:00:00 neoplasm of colon Medical Ce nter (procedure) [code = 311588060] Future Scheduled 1954 Sigmoidoscopy [code = [facility] Sigmoidoscopy] Medical Cente r Future Scheduled 1954 CT Colonography (combo) [facility] Test 00:00:00 [code = CT Colonography [facility] (combo)] Future Scheduled 1954 Screening for malignant [facility] Test 00:00:00 neoplasm of colon Medical Ce nter (procedure) [code = 991246289] Future Scheduled 1954 Screening for malignant [facility] Test 00:00:00 neoplasm of colon Medical Ce nter (procedure) [code = 725675598] Future Scheduled 1954 CT Colonography (combo) [facility] Test 00:00:00 [code = CT [facility] Future Scheduled 1954 Screening for malignant [facility] Test 00:00:00 neoplasm of colon Medical Ce nter (procedure) [code = 310970927] Future Scheduled 1954 Screening for malignant [facility] Test 00:00:00 neoplasm of colon Medical Ce nter (procedure) [code = 048043835] Future Scheduled 1954 Screening for malignant [facility] Test 00:00:00 neoplasm of colon Medical Ce nter (procedure) [code = 436178530] Future Scheduled 1954 Screening for malignant [facility] Test 00:00:00 neoplasm of colon Medical Ce nter (procedure) [code = 047626482] Future Scheduled 1954 Sigmoidoscopy [code = [facility] 00:[facility] Sigmoidoscopy] Medical Cente r Future Scheduled 1954 CT Colonography (combo) [facility] Test 00:00:00 [code = CT Colonography [facility] (combo)] Future Scheduled 1954 Screening for malignant [facility] Test 00:00:00 neoplasm of colon Medical Ce nter (procedure) [code = 537837237] Future Scheduled 1954 Screening for malignant [facility] Test 00:00:00 neoplasm of colon Medical Ce nter (procedure) [code = 064274807] Future Scheduled 1954 Screening for malignant [facility] Test 00:00:00 neoplasm of colon Medical Ce nter (procedure) [code = 913670943] Future Scheduled 1954 Screening for malignant [facility] Test 00:00:00 neoplasm of colon Medical Ce nter (procedure) [code = 662546711] Future Scheduled 1954 Sigmoidoscopy [facility]code [facility] Sigmoidoscopy] Medical Cente r Encounters Start End Encounter Admission Attending Care Care Encounter Source Date/Time Date/Time Type Type Clinicians Facility Department ID 2021-02-02 Inpatient [facility] Neu[facility] [id number] 16:03:40 [facility] 2020-11-04 Inpatient UR ONEAL, [facility] General Med [id number] [facility] 21:10:00 MICHAEL 2022-11-24 2022-11-24 Patient Doctor NAVEEN 1.2.840.114 [id number] Univers 00:00:00 00:00:00 Secure Msg Unassigned, ALETHEA 350.1.13.10 ity of [place] [facility] 4.2.7.2.686 Zak as [phone] [address] 2022-11-05 2022-11-05 Outpatient R INÉS [facility] [id number] Univers 11:00:00 11:00:00 MOHAMMED brielle o f [facility] 2022-11-04 2022-11-04 Outpatient R DABRY NIELSEN [facility] [id number] Univers 15:00:00 15:00:00 DARBY NIELSEN [facility] 2022-11-03 2022-11-03 Telephone Cristóbal [facility] [id number] Univers 00:00:00 00:00:00 Rosaura Everett HEALTH 350.1.13.10 i ty of [place] 4.2.7.2.686 Zak as LIGIA?BLEA [id number] [facility] [address] [place] MEDICAL OFFICE [facility] 2022-11-03 2022-11-03 Patient Doctor [facility] 1.2.840.114 [id number] Univers 00:00:00 00:00:00 Secure Msg Unassigned, HEALTH 350.1.13.10 ity [place] 4.2.7.2.686 Zak as LIGIA?BLEA [id number] [facility] [address] [place] MEDICAL OFFICE [facility] 2022-10-27 2022-10-27 Gas Collection System Operator Lab, Ang - Db [facility] 1.2.840.1 14 [id number] Univers 10:15:00 10:30:00 Visit Rosaura Castillo HEALTH 350.1.13.10 ity of [place] 4.2.7.2.686 Zak as LIGIA?BLEA [phone] [facility] [address] [place] MEDICAL OFFICE [facility] 2022-10-27 2022-10-27 Outpatient R CRISTÓBAL [facility] [id number] Univers 09:30:00 10:10:28 ROSAURA hannah [facility] 2022-10-27 2022-10-27 Office Cristóbal, [facility] 1.2.840.114 [id number] Univers 09:30:00 10:10:28 Visit Rosaura A HEALTH 350.1.13.10 i ty of [place] 4.2.7.2.686 Zak as LIGIA?BLEA [phone] [address] OFFICE [facility] 2022-10-27 2022-10-27 Orders Doctor NAVEEN 1.2.840.114 [id number] Univers 00:00:00 00:00:00 Only Unassigned, ALETHEA 350.1.13.10 ity of [place] [facility] 4.2.7.2.686 Zak as [phone] [address] 2022-10-23 2022-10-23 Patient Doctor [facility] 1.2.840.114 [id number] Univers 00:00:00 00:00:00 Secure Msg Unassigned, HEALTH 350.1.13.10 it[place] 4.2.7.2.686 Zak as LIGIA?BLEA [phone] [address] OFFICE [facility] 2022-10-16 2022-10-16 Telephone [facility] 1.2.209.407 [id number] Univers 00:00:00 00:00:00 Rosaura A HEALTH 350.1.13.10 i ty of [place] 4.2.7.2.686 Zka as LIGIA?BLEA [id number] [address] OFFICE [facility] 2022-10-15 2022-10-15 Gas Collection System Operator Lab, Ang - Db [facility] 1.2.840.1 14 [id number] Univers 13:30:00 15:04:34 Visit Cristóbal, Rosaura Everett HEALTH 350.1.13.10 ity of [place] 4.2.7.2.686 Zak as LIGIA?BLEA [phone] [facility] [address] [facility] OFFICE [facility] 2022-10-15 2022-10-15 Outpatient R CRISTÓBAL, [facility] [id number] Univers 12:30:00 13:35:55 ROSAURA ity of [facility] 2022-10-15 2022-10-15 Office [facility] 1.2.840.114 [id number] Univers 12:30:00 13:35:55 Visit Rosaura Everett HEALTH 350.1.13.10 i ty [facility] 4.2.7.2.686 Zak as LIGIA?BLEA [phone] [facility] [address] [facility] OFFICE [facility] 2022-10-11 2022-10-11 Telephone [facility] 1.2.718.516 [id number] Univers 00:00:00 00:00:00 Darby HEALTH 350.1.13.10 ity of [place] 4.2.7.2.686 Zak as LIGIA?BLEA [phone] [address] OFFICE [facility] 2022-10-08 2022-10-08 Emergency EM Tsau, HCACL ALEXANDER [id number] [facility] 11:15:00 13:00:00 Taiwo 40 [facility] 2022-03-17 2022-03-17 Outpatient R FARHAT [facility] [id number] Univers 10:00:00 10:00:00 KATHE hannah [facility] 2022-02-16 2022-02-16 Telephone [facility] [id number] Univers 00:00:00 00:00:00 [facility] 350.1.13.10 ity of [place] 4.2.7.2.686 Zak as LIGIA?BLEA [phone] [address] 2022-02-01 2022-02-01 Gas Collection System Operator Lab, Ang - Db [facility] 1.2.840.1 14 [id number] Univers 12:00:00 12:14:39 Visit Clive Darby HEALTH 350.1.13.10 ity of [facility] 4.2.7.2.686 Zak as LIGIA?BLEA [phone] [facility] [address] [facility] OFFICE [facility] 2022-02-01 2022-02-01 Outpatient R CLVIE [facility] [id number] Univers 11:20:00 11:59:15 DARBY hannah [facility] 2022-02-01 2022-02-01 Office [facility] 1.2.840.114 [id number] Univers 11:20:00 11:59:15 Visit [facility] 350.1.13.10 ity of [facility] 4.2.7.2.686 Zak as LIGIA?BLEA [phone] [address] MEDICAL OFFICE [facility] 2022-01-22 2022-01-22 Outpatient R CLIVE [facility] [id number] Univers 09:40:00 10:23:36 DARBY ity of [facility] 2022-01-22 2022-01-22 Office [facility] 1.2.840.114 [id number] Univers 09:40:00 10:23:36 Visit [facility] 350.1.13.10 ity of [place] 4.2.7.2.686 Zak as LIGIA?BLEA [phone] [address] OFFICE [facility] 2022-01-22 2022-01-22 Patient Doctor NAVEEN 1.2.840.114 [id number] Univers 00:00:00 00:00:00 Secure Msg Unassigned, ALETHEA 350.1.13.10 [place] HOSPITAL 4.2.7.2.686 Zak as [phone] [facility] [address] [place] 2022-01-22 2022-01-22 Orders Doctor NAVEEN 1.2.840.114 [id number] Univers 00:00:00 00:00:00 Only Unassigned, ALETHEA 350.1.13.10 ity of [place] HOSPITAL 4.2.7.2.686 Zak as [phone] [facility] [address] [place] 2022-01-22 2022-01-22 Letter [facility] 1.2.840.114 [id number] Univers 00:00:00 00:00:00 (Out) Darby HEALTH 350.1.13.10 ity of [facility] 4.2.7.2.686 Zak as LIGIA?BLEA [phone] [address] MEDICAL OFFICE [facility] 2022-01-19 2022-01-19 Telephone Farhat [facility] 1.2.224.997 [id number] Univers 00:00:00 00:00:00 [employer] 350.1.13.10 it y of [place] 4.2.7.2.686 Zak as LIGIA?BLEA [phone] Il dical KNEY [address] [facility] OFFICE BUILDING 2021-08-26 2021-08-26 CAV Katelyn 2.16.840. 2.16.840.1. CLA XREGFH Devoted 15:30:00 16:30:00 [place] [id number]. 449297.4.6. [facility] Medical [id number] [id number] 2021-08-24 2021-08-24 Outpatient [place]_A [facility] [id number] Devoted 06:44:00 06:44:00 0523 Medica l Group 2021-05-11 2021-05-11 Refmariaa [facility] 1.2.840.114 [id number] Univers 00:00:00 00:00:00 Wonana Everett HEALTH 350.1.13.10 ity of [place] 4.2.7.2.686 Zak as PROFESSIO [phone] [address] OFFICE BUILDING ONE 2021-02-18 2021-02-18 CAV Millie 2.16.840. 2.16.840.1. [facility] [id number] Devoted 16:00:00 17:00:00 Lyle [id number]. 168664.4.6. [facility] Medical 4.6.61694 [id number] 2021-02-05 2021-02-05 Outpatient Valdo_R [facility] [id number] Devoted 08:01:00 08:01:00 1104 Medica l Group 2021-01-30 2021-01-30 Outpatient R KAMILLA [facility] [id number] Univers 10:10:00 09:04:47 BILL hannah [facility] 2021-01-30 2021-01-30 Imm/Inj Nurse, Adc Pob Immunization [facility] 1.2.840.114 [id number] Univers 09:03:10 09:04:47 Visit Bill Kohli 350.1.13 .10 ity [facility] 4.2.7.2.[place] PROFESS[place] [phone] [facility] [address] [facility] 2021-01-09 2021-01-09 Outpatient [facility] [id number] Devoted 08:00:00 08:00:00 1008 Medica l Group 2020-12-15 2020-12-15 Orders Doctor NAVEEN 1.2.840.114 [id number] Univers 00:00:00 00:00:00 Only Unassigned, ALETHEA 350.1.13.10 ity of [place] [facility] 4.2.7.2.686 Zak as [phone] [address] 2020-12-04 2020-12-04 Outpatient R CHELSEA [facility] [id number] Univers 10:30:00 10:30:00 WONDIFUL ity o f [facility] 2020-11-04 2020-11-04 Telephone Chelsea [facility] 1.2.840.114 [id number] Univers 00:00:00 00:00:00 Wondiful A Health 350.1.13.10 ity of [place] 4.2.7.2.686 Zak as Professio [phone] [facility] [address] [place] Office [facility] 2020-11-04 2020-11-04 Telephone Chelsea GALAVINIA 1.2.840.114 [id number] 00:00:00 00:00:00 Wondiful A Health 350.1.13.10 [place] 4.2.7.2.686 Professio [phone] [address] One 2020-10-30 2020-10-30 Outpatient [facility] [id number] Devoted 08:00:00 08:00:00 0729 Medica l [facility] 2020-09-26 2020-09-26 Telephone Chelsea GALAVINIA 1.2.840.114 [id number] Univers 00:00:00 00:00:00 Wondiful A Health 350.1.13.10 ity of [place] 4.2.7.2.686 Zak as Professio [phone] [facility] [address] [place] Office [facility] One 2020-09-26 2020-09-26 Telephone [place], [facility] 1.2.840.114 [id number] 00:00:00 00:00:00 Wondiful A Health 350.1.13.10 [place] 4.2.7.2.686 Professio [phone] [place] [address] Office Building One 2020-09-17 2020-09-17 Patient Doctor NAVEEN 1.2.840.114 [id number] Univers 00:00:00 00:00:00 Secure Msg Unassigned, ALETHEA 350.1.13.10 ity of [place] HOSPITAL 4.2.7.2.686 Zak as [phone] [facility] [address] [place] 2020-09-15 2020-09-15 Case Chelsea [facility] 1.2.840.114 [id number] Univers 00:00:00 00:00:00 Management Shantellful A Health 350.1.13.10 ity of [place] 4.2.7.2.686 Zak as Professio [phone] Il dical [address] Office Building One 2020-09-15 2020-09-15 Case Chelsea [facility] 1.2.840.114 [id number] 00:00:00 00:00:00 Management Shantellful A Health 350.1.13.10 [place] 4.2.7.2.686 Professio [phone] [place] [address] Office Building One 2020-09-10 2020-09-10 Orders Doctor NAVEEN 1.2.840.114 [id number] Univers 00:00:00 00:00:00 Only Unassigned, ALETHEA 350.1.13.10 ity of [place] HOSPITAL 4.2.7.2.686 Zak as [phone] [facility] [address] [place] 2020-09-10 2020-09-10 Orders Doctor NAVEEN 1.2.840.114 [id number] 00:00:00 00:00:00 Only Unassigned, ALETHEA 350.1.13.10 [place] [facility] 4.2.7.2.686 [phone] 009 2020-09-02 2020-09-02 Gas Collection System Operator Lab, Adc Fam Pob I [facility] 1.2. 840.114 [id number] Univers 11:08:48 11:28:48 Visit Leonides [facility] 350.1.13.1 0 ity of [place] 4.2.7.2.686 Zak as Professio [phone] [address] Office Building One 2020-09-02 2020-09-02 Office Chelsea [facility] 1.2.840.114 [id number] Univers 09:24:19 11:06:36 Visit Wondiful A Health 350.1.13.10 ity of [place] 4.2.7.2.686 Zak as Professio [phone] [address] Office Building One 2020-09-02 2020-09-02 Office Chelsea [facility] 1.2.840.114 [id number] 09:24:19 11:06:36 Visit Leonides A Health 350.1.13.10 [place] 4.2.7.2.686 Professio [phone] [place] [address] Office [facility] One 2020-09-02 2020-09-02 Outpatient R CHELSEA [facility] [id number] Univers 10:30:00 10:30:00 WONDIFUL ity o f [facility] 2020-06-21 2020-06-[address] [facility] [id number] Univers 08:25:00 08:25:00 ity of [facility] 2020-06-20 2020-06-20 Outpatient R PAT [facility] [id number] Univers 11:00:00 11:00:00 TEJO ity [facility] 2020-05-31 2020-05-31 Outpatient R LENCHO, [facility] [id number] Univers 09:40:00 09:40:00 CHINO ity [facility] 2020-05-16 2020-05-16 Orders Doctor NAVEEN 1.2.840.114 [id number] Univers 00:00:00 00:00:00 Only Unassigned, ALETHEA 350.1.13.10 ity of [place] [facility] 4.2.7.2.686 Zak as [phone] [address] 2020-05-09 2020-05-09 Urgent Provider, [facility] 1.2.840.114 [id number] Univers 08:37:04 09:28:57 Care Viridiana [facility] 350.1.13.10 ity of [place] 4.2.7.2.686 Zak as Professio [phone] [address] 2020-05-09 2020-05-09 Outpatient Mirian ROQUE [facility] [id number] Univers 09:20:00 09:20:00 VIRIDIANA ity [facility] 2020-03-24 2020-03-24 Outpatient [facility] [id number] Univers 09:00:00 09:00:00 WONDIFUL ity o f [facility] 2020-03-12 2020-03-12 [facility] PAT Uriostegui 1.2.840.114 [id number] [facility] 13:52:00 23:59:00 Encounter Abundio H 350.1.13.10 ity of BUILDING 4.2.7.2.686 Zak as [phone] [address] 2020-03-12 2020-03-12 Outpatient R [facility] ACO 71498 [id number] Univers 00:00:00 00:00:00 ABUNDIO brielle [facility] 2020-03-12 2020-03-12 Ag [facility] 1.2.840.114 [id number] Univers 00:00:00 00:00:00 Management Wondiful A Health 350.1.13.10 ity of [place] 4.2.7.2.686 Zak as Professio [phone] [address] 2020-03-12 2020-03-12 Telephone [facility] 1.2.840.114 [id number] Univers 00:00:00 00:00:00 Wondiful A Health 350.1.13.10 ity of [place] 4.2.7.2.686 Zak as Professio [phone] [address] 2020-03-11 2020-03-11 Telephone [facility] 1.2.840.114 [id number] Univers 00:00:00 00:00:00 Wondiful A Health 350.1.13.10 ity of [place] 4.2.7.2.686 Zak as Professio [phone] Il ciara frank [address] [place] [address] Office [facility] One 2020-03-06 2020-03-06 Telephone Chelsea [facility] 1..840.114 [id number] Univers 00:00:00 00:00:00 Wondiful A Health 350.1.13.10 ity of [place] 4.2.7.2.686 Zak as Professio [phone] Il abad[address] Office [facility] 2020-03-03 2020-03-03 Gas Collection System Operator Lab, Adc Fam Pob I [facility] 1.. 840.114 [id number] Univers 11:02:30 11:20:02 Visit Leonides Tran A Health 350.1.13.1 0 ity of [place] 4.2.7.2.686 [place]ak as Professio [phone] Il ciara [address] One 2020-03-03 2020-03-03 Office Chelsea [facility] 1..840.114 [id number] Univers 08:29:52 11:15:29 Visit Wondiful A Health 350.1.13.10 ity of [place] 4.2.7.2.686 [place]ak as Professio [phone] [address] 2020-03-03 2020-03-03 Outpatient Mirian TRAN [facility] [id number] Univers 10:45:00 10:45:00 WONDIFUL ity o f [facility] 2020-01-25 2020-01-25 Refill [facility] 1..840.114 [id number] Univers 00:00:00 00:00:00 Wondiful A Health 350.1.13.10 ity of [place] 4.2.7.2.686 [place]ak as Professio [phone] [address] Office [facility] 2020-01-21 2020-01-21 Outpatient R CHELSEA [facility] [id number] Univers 11:00:00 11:00:00 WONDIFUL ity o f [facility] 2020-01-04 2020-01-04 Outpatient R CHELSEA [facility] [id number] Univers 15:45:00 15:45:00 WONDIFUL ity o f [facility] 2020-01-04 2020-01-04 Telemedici Chelsea [facility] 1.2.840.114 [id number] Univers 07:35:15 07:50:15 ne Visit Wondiful A Health 350.1.13.10 ity of [place] 4.2.7.2.686 Zak as Professio [phone] [address] Office [facility] 2019-12-27 2019-12-27 Orders Doctor NAVEEN 1.2.840.114 [id number] Univers 00:00:00 00:00:00 Only Unassigned, ALETHEA 350.1.13.10 ity of [place] [facility] 4.2.7.2.686 Zak as [phone] [address] 2019-12-25 2019-12-25 Refill Chelsea [facility] 1.2.840.114 [id number] Univers 00:00:00 00:00:00 Wondiful A [place] 350.1.13.10 ity of [place]2.7.2.[place] Profess[place] [phone] [address] 2019-12-03 2019-12-03 Refill Chelsea [facility] 1.2.840.114 [id number] Univers 00:00:00 00:00:00 Wondiful A Health 350.1.13.10 ity of [place] 4.2.7.2.686 [place]ak as Professio [phone] [address] 2019-09-18 2019-09-18 Pre Visit Chelsea [facility] 1.2.840.114 [id number] Univers 00:00:00 00:00:00 Outreach Wondiful A [place] 350.1.13.10 ity of [place].2.7.2.[place] Profess[place] [phone] [address] 2019-08-24 2019-08-24 Telemedici Elma Austin [facility] 1.2.840.114 [id number] Univers 07:46:39 11:08:44 ne Visit Health 350.1.13.10 i [place]2.7.2.[place] [phone] [facility] [address] 2019-08-24 2019-08-24 Outpatient ELMA HUNTER [facility] [id number] Univers 09:30:00 09:30:00 ity of [facility] 2019-07-10 2019-07-10 Telemedici [facility] 1.2.840.114 [id number] Univers 14:00:09 15:15:53 ne Visit Wondiful A [place] 350.1.13.10 ity of [place].2.7.2.[place] Profess[place] [phone] [address] 2019-07-10 2019-07-10 Outpatient R CHELSEA [facility] [id number] Univers 14:35:00 14:35:00 WONDIFUL ity o f [facility] 2019-07-05 2019-07-05 Outpatient R CHELSEA [facility] [id number] Univers 09:45:00 09:45:00 WONDIFUL ity o f [facility] 2019-07-03 2019-07-03 Refill [facility] 1.2.840.114 [id number] Univers 00:00:00 00:00:00 Wondiful A Health 350.1.13.10 ity of [place] 4.2.7.2.686 Zak as Professio [phone] [address] Office [facility] One 2019-01-26 2019-01-26 Outpatient ELMA HUNTER [facility] [id number] Univers 09:30:00 10:31:17 ity of [facility] 2018-12-06 2018-12-06 Orders Doctor NAVEEN 1.2.840.114 [id number] Univers 00:00:00 00:00:00 Only Unassigned, ALETHEA 350.1.13.10 ity of [place] [facility] 4.2.7.2.686 Zak as [phone] [place] [address] [address] 2018-10-30 2018-10-30 Office Mya [facility] 1.2.840.114 [id number] Univers 08:42:33 09:46:36 Visit [facility] 350.1.13.10 it y of [place] 4.2.7.2.686 Zak as Professio [phone] [facility] [address] One 2018-09-29 2018-09-29 Orders Doctor NAVEEN 1.2.840.114 [id number] Univers 00:00:00 00:00:00 Only Unassigned, ALETHEA 350.1.13.10 ity of [place] [facility] 4.2.7.2.686 Zak as [phone] [address] 2015-07-10 2015-07-10 Orders Doctor NAVEEN 1.2.840.114 [id number] Univers 00:00:00 00:00:00 Only Unassigned, ALETHEA 350.1.13.10 ity of [place] [facility] 4.2.7.2.686 Zak as [phone] [address] 2015-06-19 2015-06-19 Orders Doctor NAVEEN 1.2.840.114 [id number] Univers 00:00:00 00:00:00 Only Unassigned, ALETHEA 350.1.13.10 ity of [place] [facility] 4.2.7.2.686 Zak as [phone] [address] Results Test Description Test Time Test Comments Results Result Comments Source GLYCOSYLATED HEMOGLOBIN (A1C) 2022-10-15 23:50:04 Test Item Value Reference Range Interpretation Comme nts HGB A1C (test code = 4548-4) 5.0 % 4.0-5.7 DAYRON (test code = DAYRON) Reference RangesNormal: <5.7%Prediabetes: 5.7 - 6.4%Diabetes: > 6.5% Lab Interpretation (test code = Normal 10800-2) [facility]IMUL[facility] [id number] 22:37:08 Test Item Value Reference Range Interpretation Comments TSH (test code = 1.95 See_Comment [Automated message] 6035930034) The system [employer] generated this result transmitted ref erence range: 0.45 - 4 .70 mIU/L. The refe rence range was not u sed to interpret this result as normal/abnor mal. Lab Interpretation (test Normal code = 38413-1) [facility] CampusPROSTATIC SPECIFIC ANTIGEN [id number] 22:36:47 Test Item Value Reference Range Interpretation Comments PSA (test code = 1.79 ng/mL <=4.00 5631379305) DAYRON (test code = DAYRON) Biotin has been reported to cause a negative bias, interpret results relative to patient's use of biotin. Lab Interpretation (test Normal code = 48665-6) [facility]. METABOLIC PANEL (30105)2022-10-15 22:10:06 Test Item Value Reference Range Interpretation Comments NA (test code = 141 mmol/L 135-145 5650712866) K (test code = 4.7 mmol/L 3.5-5.0 7234932200) CL (test code = 102 mmol/L 98-108 4083731996) CO2 TOTAL (test code = 29 mmol/L 23-31 4024467227) AGAP (test code = 10 2-16 0394127418) BUN (test code = 14 mg/dL 7-23 4450274543) GLUCOSE (test code = 88 mg/dL 70-110 6539660666) CREATININE (test code = 1.08 mg/dL 0.60-1.25 8114038131) TOTAL BILI (test code = 1.0 mg/dL 0.1-1.4 2040746939) CALCIUM (test code = 10.0 mg/dL 8.6-10.6 1130069111) T PROTEIN (test code = 7.9 g/dL 6.3-8.2 7480284113) ALBUMIN (test code = 4.4 g/dL 3.5-5.0 9356449941) ALK PHOS (test code = 78 U/L 34-122 6580297309) ALTv (test code = 42 U/L 5-50 1742-6) AST(SGOT) (test code = 41 U/L 13-40 H 9063595009) eGFR (test code = 68.0 mL/min/1.73m2 5643170027) DAYRON (test code = DAYRON) Association of [...] tests). Lab Interpretation Abnormal (test code = 86100-4) [facility] CampusLIPID PANEL (45101)(TOTAL CHOLESTEROL, TRIGLYCERIDES, HDL)2022-10-15 22:10:06 Test Item Value Reference Range Interpretation Comments CHOL (test code = 2761581470) 164 mg/dL 120-200 HDL (test code = 9638159395) 31 mg/dL >=40 L HDLC RATIO (test code = 7843060457) 5.3 <=5.0 H TRIG (test code = 2364358705) 143 mg/dL 30-170 LDL CHOL (test code = 87418-0) 104 mg/dL <=160 VLDL (test code = 0632721444) 29 mg/dL 5-60 Lab Interpretation (test code = Abnormal 17091-0) [facility] CampusCB WITH [id number] 21:11:32 Test Item Value Reference Range Interpretation Comments WBC (test code = 10.86 See_Comment H [Automated 6690-2) message] The sy stem which generated this result transmitted reference range : 4.20 - 10.70 10*3/?L. The reference range was not used to interpret this result as normal/abnormal . RBC (test code = 6.75 See_Comment H [Automated 789-8) message] The sy [...] RDW-SD (test code = 43.2 fL 38.5-51.6 49765-7) RDW-CV (test code = 19.7 % 12.1-15.4 H 788-0) PLT (test code = 425 See_Comment H [Automated 777-3) message] The sy stem which generated this result transmitted reference range : 150 - 328 10*3/ ?L. The reference r pravin was not used to interpret this result as normal/abnormal . MPV (test code = 10.9 fL 9.8-13.0 03107-0) NRBC/100 WBC (test 0.0 See_Comment [Automat ed code = 5333777958) message] The system which generated this result transmitted reference range : 0.0 - 10.0 /100 WBCs. The refer ence range was not u sed to interpret th is result as normal/abnormal . NRBC x10^3 (test code See_Comment [Auto mated = 4223210575) message] The s ystem which generated this result transmitted reference range : 10*3/?L. The reference range was not used to interpret this result as normal/abnormal . GRAN MAT (NEUT) % 63.4 % (test code = 770-8) IMM GRAN % (test code 0.30 % = 9802875494) LYMPH % (test code = 24.0 % 736-9) MONO % (test code = 9.5 % 5905-5) EOS % (test code = 2.0 % 713-8) BASO % (test code = 0.8 % 706-2) GRAN MAT x10^3(ANC) 6.88 10*3/uL 1.99-6.95 (test code = 7435850440) IMM GRAN x10^3 (test 0.03 10*3/uL 0.00-0.06 code = 3553905889) LYMPH x10^3 (test code 2.61 10*3/uL 1.09-3.23 = 731-0) MONO x10^3 (test code 1.03 10*3/uL 0.36-1.02 H = 742-7) EOS x10^3 (test code = 0.22 10*3/uL 0.06-0.53 711-2) BASO x10^3 (test code 0.09 10*3/uL 0.01-0.09 = 704-7) Lab Interpretation Abnormal (test code = 84781-7) [facility] HEAD/BRAIN W/O [id number] 00:00:00 [facility] 1955 Sex: M Name: NAVEEN MOLINA [facility] ER : 1955 Age/S: 67 / M [address] [place] [address] Blvd Unit #: [id number] Loc: [place] [address] Phys: Taiwo Watson MD Acct: [id number] Dis Date: Status: REG ER PHONE #: [phone] Exam Date: 10/08/2022 1141 FAX #: [phone] Reason: facial injury EXAMS: CPT CODE: [id number] CT HEAD/BRAIN W/O CONT 49204 PROCEDURE INFORMATION: Exam: CT Head Without Contrast [...] radiata and centrum. The orbital globes are i ntact. The lenses have been resected. There is [...] 1 Signed Report (CONTINUED) Name: NAVEEN MOLINA [facility] : 1955 Age/S: 67 / M [address] [place] [address] Unit #: [id number] Loc: [place] [address] Phys: Taiwo Watson MD Acct: [id number] Dis Date: Status: REG ER PHONE #: [phone] Exam Date: 10/08/2022 1141 FAX #: [phone] Reason: facial injury EXAMS: CPT CODE: [id number] CT HEAD/BRAIN W/O CONT 19123 (Continued) ElectronicallySigned by Savage Phelan on 10/08/2022 at 1215 Reported and signed by: Sravan Phelan M.D. CC: Taiwo Watson MD Technologist:Meredith Knapp, RT(R)(CT) CTDI: DLP: Trnscb Date/Time: 10/08/2022 (1215) [email or web address] Orig Print D/T: S: 10/08/2022 (1216) PAGE 2 Signed Report- CT MAXIFAC W/O CONTRAST 2022-10-08 00:00:00 [facility] : 1955 Sex: M Name: NAVEEN MOLINA [facility] : 1955 Age/S: 67 / M [address] [place] [address] Unit #: [id number] Loc: [place] [address] Phys: Taiwo Watson MD Acct: [id number] Dis Date: Status: REG ER PHONE #: [phone] Exam Date: 10/08/2022 1141 FAX #: [phone] Reason: facial injury EXAMS: CPT CODE: [id number] CT MAXIFAC W/O CONTRAST 06139 PROCEDURE INFORMATION: Exam: CT Maxillofacial Without Contrast Exam date and time: 10/08/2022 11:40 AM Age: 67 years old Clinical indication: Injury or trauma; Fall; Blunt trauma (contusions or hematomas); Other: Face; Additional info: Facial injury TECHNIQUE: Imaging protocol: Computed tomography of the face without contrast. Radiation optimization: All CT scans [...] or dislocation of the temporomandibular joints. There issignificant periodontal disease and multiple dental caries present. Paranasal sinuses: There is atten uation bilateral maxillary ostium. Lymph nodes: Physiologic level 1 and 2 nodes are present. There is atrophy of the submandibular glands. Soft tissues: See "Bones/joints" finding. Trachea: There is nocompromise of the airway. IMPRESSION: There is a subtle fracture tip of the nasal bone with minimal right perinasal/preseptal periorbital soft tissue swelling. There is no fracture of the mandible, maxilla or orbital fossa. PAGE 1 Signed Report (CONTINUED) Name: NAVEEN MOLINA [facility] : 1955 Age/S: 67 / M [address] [place] [address] Unit #: [id number] Loc: [place] [address] Phys: Taiwo Watson MD Acct: [id number] Dis Date: Status: [facility] ER PHONE #: [phone] Exam Date: FAX #: [phone] Reason: facial injury EXAMS: CPT CODE: [id number] CT MAXIFAC W/O CONTRAST 15004 (Continued) at 1217 Reported and signed by: Sravan Phelan M.D. CC: Taiwo Watson MD Technologist:Meredith Knapp, RT(R)(CT) CTDI: DLP: Trnscb Date/Time: 10/08/2022 (1216) [email or web address] Orig Print D/T: S: 10/08/2022 (012) PAGE 2 Signed Report- CT C-SPINE W/O [id number] 00:00:00[facility] : 1955 Sex: M Name: NAVEEN MOLINA [facility] : 1955 Age/S: 67 / M [address] [place] [address] Unit #: [id number] Loc: [place] [address] Phys: Taiwo Watson MD Acct: [id number] Dis Date: Status: REG ER PHONE #: [phone] Exam Date: 10/08/2022 1141 FAX #: [phone] Reason: facial injury EXAMS: CPT CODE: [id number] CT C-SPINE W/O CONT 46230 PROCEDURE INFORMATION: Exam: CT Cervical Spine Without Contrast Exam date and time: 10/08/2022 11:40 AM Age: 67 years old Clinical indication: Injury or trauma; Fall; Blunt trauma; Additional info: Facial injury TECHNIQUE: Imaging protocol: Computed tomography of the cervical spine without contrast. Radiation optimization: All [...] 1 Signed Report (CONTINUED) Name: [facility] 1955 Age/S: 67 / M [address] [place] [address] Unit #: [id number] Loc: [place] [address] Phys: Taiwo Watson MD Acct: [id number] Dis Date: Status: REG ER PHONE #: [phone] Exam Date: 10/08/2022 1141 FAX #: [phone] Reason: facial injury EXAMS: CPT CODE: [id number] CT C-SPINE W/O CONT 80449 (Continued) CC: Taiwo Watson MD Technologist:Meredith Knapp, RT(R)(CT) CTDI: DLP: Trnscb Date/Time: 10/08/2022 (122) [id number] Orig Print D/T: S: 10/08/2022 (1222) PAGE 2 Signed ReportFERRITIN [id number] 19:47:19 Test Item Value Reference Range Interpretation Comments FERRITIN (test code = 10.2 ng/mL 18.0-464.0 L 6951718211) DAYRON (test code = DAYRON) Biotin has been reported to cause a negative bias, interpret results relative to patient's use of biotin. Lab Interpretation (test Abnormal code = 22834-7) [facility] CampusIRON [id number] 19:18:54 Test Item Value Reference Range Interpretation Comments IRON (test code = 8803687447) 34 ug/dL 50-160 L TIBC (test code = 2246828593) 379 ug/dL 250-410 % FE SAT (test code = 3924734770) 9 % 20-50 L Lab Interpretation (test code = Abnormal 74796-1) [facility] CampusGLYCOSYLATED HEMOGLOBIN (A1C)2022-02-01 21:52:53 Test Item Value Reference Range Interpretation Comments HGB A1C (test code = 5.5 % 4.0-5.7 4548-4) DAYRON (test code = DAYRON) Reference RangesNormal: <5.7%Prediabetes: 5.7 - 6.4%Diabetes: > 6.5% Lab Interpretation (test Normal code = 97169-4) [facility] CampusLIPID PANEL (05946)(TOTAL CHOLESTEROL, TRIGLYCERIDES, HDL)2022-02-01 21:20:11 Test Item Value Reference Range Interpretation Comments CHOL (test code = 171 mg/dL 120-200 7726045447) HDL (test code = 32 mg/dL See_Comment L [Automated message] 7353493455) The system [employer] generated this result transmit zenon reference range : >=40. The refer ence range was not u sed to interpret th is result as normal/abnormal . HDLC RATIO (test code = See_Comment H [Au tomated message] 6487025143) The system [employer] generated this result transmit zenon reference range : <=5.0. The refe rence range was not u sed to interpret th is result as normal/abnormal . TRIG (test code = 85 mg/dL 30-170 3484679591) LDL CHOL (test code = 122 mg/dL See_Comment [Auto mated message] 44001-8) The system [employer] generated this result transmit zenon reference range : <=160. The refe rence range was not u sed to interpret th is result as normal/abnormal . VLDL (test code = 17 mg/dL 5-60 1820506528) Lab Interpretation (test Abnormal code = 90167-1) [facility]. METABOLIC PANEL (26633)2022-02-01 21:19:55 Test Item Value Reference Range Interpretation Comments NA (test code = 140 mmol/L 135-145 0111584426) K (test code = 4.7 mmol/L 3.5-5.0 5517888238) CL (test code = 103 mmol/L 98-108 8212016211) CO2 TOTAL (test code = 30 mmol/L 23-31 9573478392) AGAP (test code = 2-16 8243067766) BUN (test code = 15 mg/dL 7-23 5729757996) GLUCOSE (test code = 82 mg/dL 70-110 7249547918) CREATININE (test code = 1.26 mg/dL 0.60-1.25 H 8254590855) TOTAL BILI (test code = 0.5 mg/dL 0.1-1.9 6121468433) CALCIUM (test code = 9.6 mg/dL 8.6-10.6 8638435767) T PROTEIN (test code = 7.7 g/dL 6.3-8.2 4200925432) ALBUMIN (test code = 4.4 g/dL 3.5-5.0 3497123870) ALK PHOS (test code = 80 U/L 34-122 9205257117) ALTv (test code = 26 U/L 5-50 1742-6) AST(SGOT) (test code = 27 U/L 13-40 0894000001) eGFR (test code = mL/min/1.73m2 0402167544) DAYRON (test code = DAYRON) Association of [...] tests). Lab Interpretation Abnormal (test code = 27933-3) [facility] WITH [id number] 20:39:06 Test Item Value Reference Range Interpretation Comments WBC (test code = See_Comment [Automated 3986-2) message] The sy stem which generated this result transmitted reference range : 4.20 - 10.70 10*3/?L. The reference range was not used to interpret this result as normal/abnormal . RBC (test code = See_Comment H [Automated 779-8) message] The sy stem which generated this [...] RDW-SD (test code = 40.7 fL 38.5-51.6 39699-4) RDW-CV (test code = 18.6 % 12.1-15.4 H 788-0) PLT (test code = See_Comment H [Automated 777-3) message] The sy stem which generated this result transmitted reference range : 150 - 328 10*3/ ?L. The reference r pravin was not used to interpret this result as normal/abnormal . MPV (test code = 10.3 fL 9.8-13.0 41177-8) NRBC/100 WBC (test See_Comment [Automat ed code = 0945204650) message] The system which generated this result transmitted reference range : 0.0 - 10.0 /100 WBCs. The refer ence range was not u sed to interpret th is result as normal/abnormal . NRBC x10^3 (test code See_Comment [Auto mated = 0198889028) message] The s ystem which generated this result transmitted reference range : 10*3/?L. The reference range was not used to interpret this result as normal/abnormal . GRAN MAT (NEUT) % 57.8 % (test code = 770-8) IMM GRAN % (test code 0.20 % = 0888128171) LYMPH % (test code = 29.0 % 736-9) MONO % (test code = 9.8 % 5905-5) EOS % (test code = 2.1 % 713-8) BASO % (test code = 1.1 % 706-2) GRAN MAT x10^3(ANC) 5.82 10*3/uL 1.99-6.95 (test code = 3540356742) IMM GRAN x10^3 (test 0.00-0.06 code = 8320634950) LYMPH x10^3 (test code 2.91 10*3/uL 1.09-3.23 = 731-0) MONO x10^3 (test code 0.98 10*3/uL 0.36-1.02 = 742-7) EOS x10^3 (test code = 0.21 10*3/uL 0.06-0.53 711-2) BASO x10^3 (test code 0.11 10*3/uL 0.01-0.09 H = 704-7) Lab Interpretation Abnormal (test code = 91038-4) [facility] WITH [id number] 20:39:06 Test Item Value Reference Range Interpretation [...] RDW-SD (test code = 40.7 fL 38.5-51.6 81767-1) RDW-CV (test code = 18.6 % 12.1-15.4 H 788-0) PLT (test code = See_Comment H [Automated 777-3) message] The sy stem which generated this result transmitted reference range : 150 - 328 10*3/ ?L. The reference r pravin was not used to interpret this result as normal/abnormal . MPV (test code = 10.3 fL 9.8-13.0 33912-0) NRBC/100 WBC (test See_Comment [Automat ed code = 0694399169) message] The system which generated this result transmitted reference range : 0.0 - 10.0 /100 WBCs. The refer ence range was not u sed to interpret th is result as normal/abnormal . NRBC x10^3 (test code See_Comment [Auto mated = 1836206534) message] The s ystem which generated this result transmitted reference range : 10*3/?L. The reference range was not used to interpret this result as normal/abnormal . GRAN MAT (NEUT) % 57.8 % (test code = 770-8) IMM GRAN % (test code 0.20 % = 6767339797) LYMPH % (test code = 29.0 % 736-9) MONO % (test code = 9.8 % 5905-5) EOS % (test code = 2.1 % 713-8) BASO % (test code = 1.1 % 706-2) GRAN MAT x10^3(ANC) 5.82 10*3/uL 1.99-6.95 (test code = 5794823330) IMM GRAN x10^3 (test 0.00-0.06 code = 0880986536) LYMPH x10^3 (test code 2.91 10*3/uL 1.09-3.23 = 731-0) MONO x10^3 (test code 0.98 10*3/uL 0.36-1.02 = 742-7) EOS x10^3 (test code = 0.21 10*3/uL 0.06-0.53 711-2) BASO x10^3 (test code 0.11 10*3/uL 0.01-0.09 H = 704-7) Lab Interpretation Abnormal (test code = 95219-2) [facility] Campus[facility]PR2021-08-04 13:14:00 Test Item Value Reference Range Interpretation Comments RPR SCREEN (BEAKER) (test code = Nonreactive Nonreactive 420) CT, CTANGIO [id number] 09:00:00Unlisted Reason for Exam - Click Yes and Enter Reason Below->No [facility] : 1955 Sex: [...] images of the brain were also obtained. Stenosisevaluation reported in compliance with NASCET criteria. DOSE REDUCTION: Dose modulation, iterative reconstruction, and/or weight-based adjustment of the mA/kV was utilized to reduce the radiation dose t o as low as reasonably achievable. FINDINGS:CT BRAIN:Cerebral parenchyma: Moderate global cerebral atrophy. Advanced white matter changes without acute padilla-white disruption. No hemorrhage in the parenchyma.Midline structures: Normally positioned.Cerebellum and brainstem: Mild volume loss.Ventricles: Ex vacuo dilation.Extra-axial spaces: Unremarkable.Calvarium and skull base: Intact.Paranasal sinusesand mastoid air cells: Visible chambers are clear.Orbital contents: Included portions unremarkable. CTA BRAIN:Internal carotid arteries: Circumferential calcifications at the carotid siphons without flow limitation.Middle cerebral arteries: Patent to distal branches.Anterior cerebral arteries: Patent.Intact A-comm.Basilar system: Circumferential calcifications at the dural [...] JR Taylor Robert MDReport Verified Date/Time: 11/05/2020 09:00:13Reading Location: [facility] Radiology Reading Room CT, CAROTID, [id number] 09:00:00 Unlisted Reason for Exam - Click Yes and Enter Reason Below->No [facility] : 1955 Sex: MFINAL [...] Verified Date/Time: 11/05/2020 09:00:13 Mirian martinez Location: [facility] Radiology Reading Room HEMOGLOBIN [id number] 08:45:00 Test Item Value Reference Range Interpretation Comments HEMOGLOBIN A1C (BEAKER) (test code = 4.8 % 4.3-6.1 368) HEPATIC FUNCTION [id number] 06:56:00 Test Item Value Reference Range Interpretation [...] (test code = 21 U/L 6-55 347) Shop Lead ID - PIAYA LBASIC METABOLIC [id number] 06:56:00 Test Item Value Reference Range Interpretation [...] S NOT APPLICABLE FOR DIALYSIS PATIEN TS. Shop Lead ID - CELENA [id number] 06:56:00 Test Item Value Reference Range Interpretation Comments MAGNESIUM (BEAKER) (test code = 2.2 mg/dL 1.6-2.6 627) Shop Lead ID - CELENA [id number] 06:56:00 Test Item Value Reference Range Interpretation Comments PHOSPHORUS (BEAKER) (test code = 3.0 mg/dL 2.3-4.7 604) Shop Lead ID - CELENA LLIPID [id number] 06:56:00 Test Item Value Reference Range Interpretation [...] Borderline 130-159 High 160-189 Very High >=190 Shop Lead ID Kanu [place] LTSH/FREE T4 IF [id number] 06:45:00 Test Item Value Reference Range Interpretation Comments THYROID STIMULATING HORMONE 1.888 uIU/mL 0.350-4.940 (BEAKER) (test code = 772) Shop Lead ID - CELENA LVITAMIN B12 AND [id number] 06:45:00 Test Item Value Reference Range Interpretation Comments VITAMIN B12 220 pg/mL 213-816 (BEAKER) (test code = 774) FOLATE (BEAKER) 10.10 ng/mL See_Comment [Automated message] (test code = 362) The system which generated this result transmitted ref erence range: >=7.00. The reference range was not used to interpr et this result as normal/abnormal . Shop Lead ID - CELENA LCBC W/PLT COUNT & AUTO [id number] 06:03:00 Test Item Value Reference Range Interpretation [...] (BEAKER) (test code = 2801) VITAMIN D, [id number] 20:58:00 Test Item Value Reference Range Interpretation Comments VIT D 25OH (test code = 29 ng/mL 25-80 37008-3) DAYRON (test code = DAYRON) Deficiency: <20 ng/mLInsufficiency : 20-24 ng/mLOptimal: 25-80 ng/mL Lab Interpretation (test Normal code = 78856-3) [facility]GLOBIN (A1C)2020-03-03 20:37:00 Test Item Value Reference Range Interpretation Comments HGB A1C (test code = 5.3 % 4-6 4548-4) DAYRON (test code = DAYRON) %A1C (NGSP) Interpretation (ADA)4.8-5.6 ? ? Normal or (Non-Diabetic Range)5.7-6.4 ? ? Increased Risk (Pre-Diabetic)>6.5 ?Diabetes Indicated Lab Interpretation Normal (test code = 36947-4) [facility]TH[facility] STIM[facility]ATING [id number] 19:10:00 Test Item Value Reference Range Interpretation Comments TSH (test code = See_Comment [Automated message] 7292363270) The system [employer] generated this result transmitted ref erence range: 0.45 - 4 .70 mIU/L. The refe rence range was not u sed to interpret this result as normal/abnor mal. Lab Interpretation (test Normal code = 38984-4) [facility] CampusPROSTATIC SPECIFIC ANTIGEN [id number] 19:09:00 Test Item Value Reference Range Interpretation Comments PSA (test code = 1.36 ng/mL See_Comment [Automated 3563458175) message] The system which generated this result transmitted reference range : <=4.00. The reference range was not used to interpret this result as normal/abnormal . DAYRON (test code = DAYRON) Biotin has been reported to cause a negative bias, interpret results relative to patient's use of biotin. Lab Interpretation Normal (test code = 33353-2) [facility] CampusCOMP. METABOLIC PANEL (06520)2020-03-03 19:09:00 Test Item Value Reference Range Interpretation Comments NA (test code = 140 mmol/L 135-145 9931190277) K (test code = 4.5 mmol/L 3.5-5 1367780947) CL (test code = 98 mmol/L 98-108 8303455306) CO2 TOTAL (test code = 31 mmol/L 23-31 3748095418) AGAP (test code = 2-16 4194111870) BUN (test code = 12 mg/dL 7-23 3769660593) GLUCOSE (test code = 91 mg/dL 70-110 5625396049) CREATININE (test code = 1.16 mg/dL 0.6-1.25 6558405234) TOTAL BILI (test code = 1.0 mg/dL 0.1-1.1 2173561673) CALCIUM (test code = 10.5 mg/dL 8.6-10.6 2814322593) T PROTEIN (test code = 8.3 g/dL 6.3-8.2 H 3643240075) ALBUMIN (test code = 4.9 g/dL 3.5-5 7874074208) ALK PHOS (test code = 77 U/L 34-122 2108334324) ALTv (test code = 68 U/L 5-50 H 1742-6) AST(SGOT) (test code = 65 U/L 13-40 H 7560114747) eGFR Calculation mL/min/1.73m2 (Non-) (test code = 0920743389) eGFR Calculation mL/min/1.73m2 () (test code = 6172283204) DAYRON (test code = DAYRON) Association of [...] tests). Lab Interpretation Abnormal (test code = 58290-5) [facility]URIN[facility]IS2020-11-30 18:49:00 Test Item Value Reference Range Interpretation Comments APPEARANCE (test code = Clear Clear 3838334176) COLOR (test code = Yellow Yellow 5213934688) PH (test code = 4.8-8.0 5954132098) SP GRAVITY (test code = 1.003-1.030 6663261579) GLU U QUAL (test code = Normal Normal 8907072109) BLOOD (test code = Negative Negative 2831542070) KETONES (test code = Negative Negative 3795744572) PROTEIN (test code = 30 mg/dL Negative A 2887-8) UROBILIN (test code = Normal Normal 2107434863) BILIRUBIN (test code = Negative Negative 8074962257) NITRITE (test code = Negative Negative 4219157689) LEUK JAYDEN (test code = Negative Negative 3978252088) RBC/HPF (test code = See_Comment [Autom ated message] 9488580866) The system [employer] generated this result transmitted ref erence range: 0 - 3 HP F. The reference range was not used to int erpret this result as normal/abnormal . WBC/HPF (test code = See_Comment [Autom ated message] 0117132660) The system [employer] generated this result transmitted ref erence range: 0 - 5 HP F. The reference range was not used to int erpret this result as normal/abnormal . BACTERIA (test code = Negative Negative 0865966169) MUCOUS (test code = Marked Negative LPF A 3680919171) AMORPHOUS (test code = Rare Rare HPF 7702114737) HYAL CAST (test code = See_Comment H [Aut omated message] 1826724541) The system [employer] generated this result transmitted ref erence range: <=2 LPF. The reference range was not used to int erpret this result as normal/abnormal . Lab Interpretation (test Abnormal code = 43837-1) [facility] CampusLIPID PANEL (90915)(TOTAL CHOLESTEROL, TRIGLYCERIDES, HDL)2020-03-03 18:38:00 Test Item Value Reference Range Interpretation Comments CHOL (test code = 141 mg/dL 120-200 6644945342) HDL (test code = 35 mg/dL >40 L 8546242352) HDLC RATIO (test code = See_Comment [Au tomated message] 3504520966) The system [employer] generated this result transmit zenon reference range : <=5.0. The refe rence range was not u sed to interpret th is result as normal/abnormal . TRIG (test code = 163 mg/dL 30-170 8271969562) LDL CHOL (test code = 73 mg/dL See_Comment [Auto mated message] 62204-6) The system [employer] generated this result transmit zenon reference range : <=160. The refe rence range was not u sed to interpret th is result as normal/abnormal . VLDL (test code = 33 mg/dL 5-60 0469543827) Lab Interpretation (test Abnormal code = 98512-6) [facility] WITHOUT [id number] 18:28:00 Test Item Value Reference Range Interpretation Comments WBC (test code = 6690-2) See_Comment [A utomated message] The system [employer] generated this result transmit zenon reference range : 4.20 - 10.70 10*3/?L. The reference range was not used to interpret this result as normal/abnormal . RBC (test code = 789-8) See_Comment H [Au tomated message] The system [employer] generated this result transmit zenon reference range [...] See_Comment H [Au tomated message] The system [employer] generated this result transmit zenon reference range : 150 - 328 10*3/?L. The reference range was not used to interpret this result as normal/abnormal . MPV (test code = 10.8 fL 9.8-13 43930-7) RDW-CV (test code = 16.9 % 12.1-15.4 H 788-0) RDW-SD (test code = 37.4 fL 38.5-51.6 L 33529-6) NRBC x10^3 (test code = <0.01 See_Comment [Au tomated message] 5723233923) The system [employer] generated this result transmit zenon reference range : 10*3/?L. The reference range was not used to interpret this result as normal/abnormal . NRBC/100 WBC (test code See_Comment [Au tomated message] = 7551269647) The system [facility] generated this result transmit zenon reference range : 0.0 - 10.0 /100 WBC s. The reference r pravin was not used to interpret this result as normal/abnormal . IPF % (test code = 9859849138) Lab Interpretation (test Abnormal code = 02441-3) [facility]
[2023-01-04 08:53] LABS: Absolute Lymphocytes (CBC) 2.3 K/uL (0.7-4.9); Hematocrit 43.6 % (39.6-49.0); Lymphocytes % 28.5 % (15.3-44.8); MPV 8.1 fL (7.6-11.3); Platelets 358 thou/uL (152-406); RBC Red Blood Cell Count 6.42 M/uL (4.33-5.43)
--- NOTE | 2023-01-04 08:55 | RAD REPORT ---
EXAM DESCRIPTION: RADChest Single View01/04/2023 8:45 am CLINICAL HISTORY: COUGH COMPARISON: Chest Single View dated 02/02/2021; Chest Single View dated 11/04/2020; CHEST SINGLE VIEW d ated 12/12/2013 TECHNIQUE: Portable AP view of the chest. FINDINGS: The lungs are clear. Mild chronic interstitial changes, stable. No pneumothorax or effusio n. The cardiomediastinal contours are unremarkable. IMPRESSION: No acute cardiopulmonary process.
[2023-01-04 08:59] LABS: Protime INR 1.08
[2023-01-04 09:20] LABS: ALT/SGPT 34 U/L (16-61); AST/SGOT 24 U/L (15-37); Albumin 3.4 g/dL (3.4-5.0); Alkaline Phosphatase 76 U/L (45-117); BUN Blood Urea Nitrogen 12 mg/dL (7-18); Bicarbonate 23 mEq/L (21-32); Bilirubin Direct 0.1 mg/dL (0-0.2); Bilirubin Indirect, Calculated 0.5 mg/dL (0.2-0.8); Bilirubin Total 0.6 mg/dL (0.2-1.0); Ferritin 11.6 ng/mL (26-388); Glomerular Filtration Rate 60 ml/min (=/>90); Glucose Level 101 mg/dL (74-106); Lipase 42 U/L (13-75); NT PRO-BNP 102 pg/mL (<125); Potassium 3.7 mEq/L (3.5-5.1); Protein, Total 7.4 g/dL (6.4-8.2); Sodium Level 136 mEq/L (136-145); Troponin High Sensitivity 13.7 pg/mL (<58.9)
--- NOTE | 2023-01-04 09:32 | RAD REPORT ---
EXAM DESCRIPTION: CT - Head C Spine Cap Wo Con - 01/04/2023 9:04 am CLINICAL HISTORY: PAIN COMPARISON: Chest Single View dated 11/04/2020; Chest Single View dated 02/02/2021 TECHNIQUE: Head and cervical spine CT images were obtained without IV contrast. Chest, abdomen, and pelvis CT images were obtained also without IV contrast. Multiplanar reformats were generated and rev iewed. All CT scans are performed using dose optimization technique as appropriate and may include automated exposure control or mA/KV adjustment according to patient size. FINDINGS: CT HEAD: No intracranial hemorrhage, mass effect, or edema. No evidence of acute territorial infarct. Confluen t deep white matter hypodensities, nonspecific, but suggestive chronic small vessel ischemic changes. Bilateral basal ganglia and centrum semiovale foci of near CSF density may suggest small remote infa rcts. No midline shift or abnormal fluid collection. The ventricles are normal in caliber and configu ration for age. Basal cisterns are patent. Mastoid aircells and paranasal sinuses are clear. No acute skull fracture. CT CERVICAL SPINE: No acute cervical spine fracture or subluxation. Vertebral body heights are well maintained. Multilev el degenerative changes most pronounced at C4-5 and C5-6 with disc height loss and up to moderate deg bharti of foraminal narrowing. No hyperattenuating canal hematoma. Prevertebral and paraspinous soft ti ssues are unremarkable. Along the bilateral posterior mandibular molars, periapical collections are n oted, suggesting dental abscesses. CT CHEST: No pneumothorax, pulmonary contusion or pleural fluid collection. No mediastinal hematoma and the aor ta and pulmonary arteries are unremarkable. Surgical clips and linear scarring which may relate to po stsurgical changes in the right lower lobe. Lobulated large areas of lucency in the left lower lobe, suggestive of benign cystic changes. No chest will mass or abnormal axillary finding. No displaced ri b fracture or other significant bony finding. CT ABDOMEN/ PELVIS: No evidence of traumatic injury to solid abdominal viscera. Gallbladder and biliary tree are unremark able. No bowel injury or significant finding. No free air, free fluid or abnormal fat stranding. Larg e right and small left inguinal hernias containing fat. No urinary bladder abnormality. No significant bony finding. IMPRESSION: No acute traumatic findings. Incidental findings as above.
[2023-01-04] MEDS ORDERED: FAMOTIDINE 20 MG/2 ML VIAL IV ONE (09:34)
[2023-01-04] MEDS ORDERED: NA CHLORIDE 0.9% 1,000 ML ONE (09:35)
[2023-01-04 09:53] LABS: Anisocytosis 1+; Blood Morphology Comment NOTED (NOT SEEN); Platelet Estimate ADEQ; White Blood Cell Scan OK (OK)
--- NOTE | 2023-01-04 10:20 | ER ---
Nurse's Notes [facility] Name: Ovidio Echols Age: 67 yrs Sex: Male : 1955 Arrival Date: 01/04/2023 Time: 08:25 Bed 15 Private MD: Diagnosis: Syncope Near;Iron deficiency anemia, unspecified;Dental root caries Presentation: 01/04 08:28 Chief complaint: EMS states: patient fell in the street, struck his right knuckles, ko1 right knee and right side of head. He is not on blood thinners. HX htn and bells palsy. Communicates by typing on phone, speech is garbled but this is his baseline. Coronavirus screen: At this time, the client does not indicate any symptoms associated with coronavirus-19. Ebola Screen: No symptoms or risks identified at this time. Initial Sepsis Screen: Does the patient meet any 2 criteria? No. Patient's initial sepsis screen is negative. Does the patient have a suspected source of infection? No. Patient's initial sepsis screen is negative. Risk Assessment: Do you want to hurt yourself or someone else? Patient reports no desire to harm self or others. Onset of symptoms was January 04, 2023. Care prior to arrival: Glucose check: 79. 08:28 Method Of Arrival: EMS: [facility] ko1 08:28 Acuity: MERA 3 ko1 Triage Assessment: 08:32 General: Appears in no apparent distress. uncomfortable, Behavior is calm, cooperative, ko1 appropriate for age. Pain: Complains of pain in right knuckles, right knee. Historical: - Allergies: 08:32 No Known Allergies; ko1 - PMHx: 08:32 BPH; CVA; Hypercholesterolemia; Hypertension; ko1 - Immunization history:: Adult Immunizations unknown. - Social history:: Smoking status: Patient/guardian denies using tobacco. Screenin:00 [facility] ED Fall Risk Assessment (Adult) Score/Fall Risk Level 3 or more points = High eh3 Risk Oriented to surroundings, Maintained a safe environment, Educated pt \T\ family on fall prevention, incl call for assistance when getting out of bed, Assessed \T\ reinforced patient's understanding of fall precautions, Provided non-skid footwear, Hourly rounding (assess needs \T\ fall precautionary measures) done, Used ambulatory aids as needed (educated on \T\ assisted with), Used gait belt as appropriate. Abuse screen: Denies threats or abuse. Denies injuries from another. Nutritional screening: No deficits noted. Tuberculosis screening: No symptoms or risk factors identified. Assessment: 09:00 General: Appears in no apparent distress. comfortable, Behavior is calm, cooperative, eh3 appropriate for age. Pain: Complains of pain in back of head. Neuro: Level of Consciousness is awake, alert, obeys commands, Oriented to person, place, time, situation. Cardiovascular: Capillary refill < 3 seconds Patient's skin is warm and dry. Respiratory: Airway is patent Respiratory effort is even, unlabored, Respiratory pattern is regular, symmetrical. GI: Abdomen is round non-distended. Derm: Skin is pink, warm \T\ dry. Wound noted left leg and right leg and right hand and scalp Wound is minor abrasions. Musculoskeletal: Circulation, motion, and sensation intact. Range of motion: intact in all extremities. 10:00 Reassessment: Patient appears in no apparent distress at this time. Patient and/or eh3 family updated on plan of care and expected duration. Pain level reassessed. Patient is alert, oriented x 3, equal unlabored respirations, skin warm/dry/pink. 11:00 Reassessment: Patient appears in no apparent distress at this time. Patient and/or eh3 family updated on plan of care and expected duration. Pain level reassessed. Patient is alert, oriented x 3, equal unlabored respirations, skin warm/dry/pink. Vital Signs: 08:28 BP 143 / 98; Pulse 88; Resp 18; Temp 98; Pulse Ox 97% on R/A; ko1 09:30 BP 138 / 97; Pulse 77; Resp 20; Pulse Ox 96% on R/A; eh3 10:30 BP 166 / 119; Pulse 82; Resp 20; Pulse Ox 98% on R/A; eh3 11:13 BP 133 / 91; eh3 Jesus Coma Score: 11:13 Eye Response: spontaneous(4). Motor Response: obeys commands(6). Verbal Response: snw oriented(5). Total: 15. ED Course: 08:27 Patient arrived in ED. aa5 08:28 Dimitrios Reddy MD is Attending Physician. naima 08:28 Arm band placed on Patient placed in an exam room, on a stretcher. ll1 08:32 Triage completed. ko1 08:33 Niesha Sánchez FNP-C is PHCP. snw 08:47 XRAY Chest (1 view) In Process Unspecified. EDMS 08:47 Inserted saline lock: 22 gauge in right forearm, using aseptic technique. Blood ds4 collected. 09:00 Patient has correct armband on for positive identification. Bed in low position. Call eh3 light in reach. Side rails up X2. Provided Education on: Use of call valdez. Pulse ox on. NIBP on. 09:06 CT Traumagram (Head C Spine CAP wo con) In Process Unspecified. EDMS 09:14 Maryse Villela, CHANEL is Primary Nurse. eh3 09:30 Wound care: to abrasion, located on scalp, right hand, right leg and left leg was eh3 soaked in normal saline solution, dressed with Neosporin, band aid. 10:19 Tan Webb MD is Hospitalizing Provider. snw 11:28 No provider procedures requiring assistance completed. IV discontinued, intact, eh3 bleeding controlled, No redness/swelling at site. Pressure dressing applied. Administered Medications: 09:30 Drug: NS 0.9% IV 1000 ml IV at 1 bolus Per protocol; 1000 mL bolus Route: IV; Rate: 1 eh3 bolus; Site: right antecubital; 11:00 Follow up: IV Status: Completed infusion; IV Intake: 1000ml eh3 09:30 Drug: Famotidine IVP 20 mg IVP once; dilute with 10 mL 0.9% NaCl; give over 2 minutes eh3 Route: IVP; Site: right antecubital; 10:16 Follow up: Response: No adverse reaction eh3 10:30 Drug: Clindamycin IVPB 600 mg IVPB once over 30 mins; (mix in 50 mL) Route: IVPB; eh3 Infused Over: 30 mins; Site: right antecubital; 11:00 Follow up: Response: No adverse reaction; IV Status: Completed infusion; IV Intake: 61xpux4 Medication: 11:29 VIS not applicable for this client. eh3 Intake: 11:00 IV: 1000ml; Total: 1000ml. eh3 11:00 IV: 50ml; Total: 1050ml. eh3 Outcome: 10:19 Decision to Hospitalize by Provider. snw 10:48 Discharge ordered by . snw 11:29 Discharged to home ambulatory, 3 11:29 Condition: stable 11:29 Discharge instructions given to patient, Instructed on discharge instructions, follow up and referral plans. medication usage, Demonstrated understanding of instructions, follow-up care, medications, Prescriptions given X 1, :29 Patient left the ED. 3 Signatures: Dispatcher [employer] EDOR Dimitrios Reddy MD MD cha Waters, Shelly, GARMENT PATTERNMAKER-C GARMENT PATTERNMAKER-Csnw Myesha Leung, RN RN [id number] Edwar Benitez ds4 Cristofer Recinos, RN RN ll1 Maryse Villela RN RN eh3 Kirsten Murdock, RN RN ko1
--- NOTE | 2023-01-04 10:20 | EDPHYS ---
Physician Documentation [facility] Name: Ovidio Echols Age: 67 yrs Sex: Male : 1955 Arrival Date: 01/04/2023 Time: 08:25 Bed 15 Private MD: ED Physician Dimitrios Reddy HPI: 01/04 11:09 This 67 yrs old Male presents to ER via EMS with complaints of Fall Injury. snw 11:09 The patient has experienced syncope, collapsed. Onset: The symptoms/episode snw began/occurred suddenly, just prior to arrival. Duration: This was a single episode, Pt was walking to the bus stop from his apt and became dizzy, fell over walker, struck head on a parked car and scraped right hand, knee and forehead. Pt has hx of CVA and has significant dysphasia at baseline. Pt communicates by typing on his cell. Context: the episode(s) was witnessed, by a bystander, occurred on a street or driveway, occurred while the patient was walking, Just prior to the episode the patient experienced dizziness. Associated injury: Other: right leg and right hand and scalp, abrasion. Associated signs and symptoms: The patient has no apparent associated signs or symptoms. The patient has experienced a previous episode, last month. It is unknown whether or not the patient has recently seen a physician. . Historical: - Allergies: 08:32 No Known Allergies; ko1 - PMHx: 08:32 BPH; CVA; Hypercholesterolemia; Hypertension; ko1 - Immunization history:: Adult Immunizations unknown. - Social history:: Smoking status: Patient/guardian denies using tobacco. ROS: 11:16 Eyes: Negative for injury, pain, redness, and discharge, ENT: Negative for injury, snw pain, and discharge, Neck: Negative for injury, pain, and swelling, Cardiovascular: Negative for chest pain, palpitations, and edema, Respiratory: Negative for shortness of breath, cough, wheezing, and pleuritic chest pain, Abdomen/GI: Negative for abdominal pain, nausea, vomiting, diarrhea, and constipation, Back: Negative for injury and pain, : Negative for injury, bleeding, discharge, and swelling, MS/Extremity: Negative for injury and deformity, 11:16 Constitutional: Positive for body aches, 11:16 Skin: Positive for abrasion(s), of the right hand and right leg, 11:16 Neuro: Positive for syncope, pt states heat exhaustion, similar to last month, Exam: 11:13 Head/Face: Normocephalic, atraumatic. Eyes: Pupils equal round and reactive to light, snw extra-ocular motions intact. Lids and lashes normal. Conjunctiva and sclera are non-icteric and not injected. Cornea within normal limits. Periorbital areas with no swelling, redness, or edema. 11:13 Eyes: Pupils round and reactive to light, extra-ocular motions intact. Lids and lashes normal. Conjunctiva and sclera are non-icteric and not injected. Cornea within normal limits. Periorbital areas with no swelling, redness, or edema. 11:13 Neck: Trachea midline, no thyromegaly or masses palpated, and no cervical lymphadenopathy. Supple, full range of motion without nuchal rigidity, or vertebral point tenderness. No Meningismus. Chest/axilla: Normal chest wall appearance and motion. Nontender with no deformity. No lesions are appreciated. Cardiovascular: Regular rate and rhythm with a normal S1 and S2. No gallops, murmurs, or rubs. Normal PMI, no JVD. No pulse deficits. Respiratory: Lungs have equal breath sounds bilaterally, clear to auscultation and percussion. No rales, rhonchi or wheezes noted. No increased work of breathing, no retractions or nasal flaring. Abdomen/GI: Soft, non-tender, with normal bowel sounds. No distension or tympany. No guarding or rebound. No evidence of tenderness throughout. Back: No spinal tenderness. No costovertebral tenderness. Full range of motion. Psych: Awake, alert, with orientation to person, place and time. Behavior, mood, and affect are within normal limits. 11:13 Constitutional: The patient appears alert, awake, unkempt, 11:13 ENT: Mouth: Oral mucosa: dry, held open with some asymmetry, Dental exam: dental caries, that is severe, diffusely, missing teeth, diffusely, 11:13 Skin: Appearance: Color: normal in color, injury, abrasion(s), very small abrasion noted, of the right leg and right hand and scalp, 11:13 Neuro: Exam negative for acute changes, Gait: not tested. seizure activity, is not displayed by the patient, Abnormal movements: there are no abnormal movements, Vital Signs: 08:28 BP 143 / 98; Pulse 88; Resp 18; Temp 98; Pulse Ox 97% on R/A; ko1 09:30 BP 138 / 97; Pulse 77; Resp 20; Pulse Ox 96% on R/A; eh3 10:30 BP 166 / 119; Pulse 82; Resp 20; Pulse Ox 98% on R/A; eh3 11:13 BP 133 / 91; eh3 Jesus Coma Score: 11:13 Eye Response: spontaneous(4). Motor Response: obeys commands(6). Verbal Response: snw oriented(5). Total: 15. MDM: 08:28 Patient medically screened. naima 10:19 Differential Diagnosis: cardiac arrhythmia, cerebrovascular accident, idiopathic snw syncope, seizure, vasovagal episode. Data reviewed: vital signs, nurses notes, old medical records, previous admit for history confirmation. Management of patient was discussed with the following: Hospitalist: Dr. Webb. I considered the following discharge prescriptions or medication management in the emergency department Medications were administered in the Emergency Department. See MAR. External Records Reviewed:. Counseling: I had a detailed discussion with the patient and/or guardian regarding the historical points, exam findings, and any diagnostic results supporting the discharge/admit diagnosis, the presence of at least one elevated blood pressure reading (>120/80) during this emergency department visit, lab results, radiology results, the need for further work-up and treatment in the hospital. Response to treatment: There is no appreciated change of the patient's symptoms at this time. 10:48 Refusal of service: The patient/guardian displays adequate decision making capability snw and despite a detailed discussion of alternatives, benefits, risks, and consequences refuses: Admission to the hospital for further work-up and treatment. ED course: Pt declines hospitalization. 11:17 ED course: pt provided me with list of home medications: amlodipine 5mg 1.5 tabs in am, snw aspirin 81mg , atorvastatin 40mg, carvedilol 6.25mg, ferrous sulfate 324mg, lisinopril 20mg, tamsulosin .4mg, tizanidine 4mg . 01/04 08:29 Order name: Basic Metabolic Panel; Complete Time: 09:28 naima 01/04 08:29 Order name: CBC with Diff; Complete Time: 09:56 naima 01/04 08:29 Order name: LFT's; Complete Time: 09:28 naima 01/04 08:29 Order name: Magnesium; Complete Time: 09:28 naima 01/04 08:29 Order name: NT PRO-BNP; Complete Time: 09:28 naima 01/04 08:29 Order name: PT-INR; Complete Time: 09:28 naima 01/04 08:29 Order name: Troponin HS; Complete Time: 09:28 niama 01/04 08:29 Order name: Lipase; Complete Time: 09:28 naima 01/04 08:29 Order name: Urinalysis w/ reflexes; Complete Time: 10:50 naima 01/04 08:29 Order name: Acetaminophen; Complete Time: 09:28 naima 01/04 08:29 Order name: ETOH Level; Complete Time: 09:28 naima 01/04 08:29 Order name: Ptt, Activated; Complete Time: 09:28 naima 01/04 08:29 Order name: Salicylate; Complete Time: 10:17 naima 01/04 08:29 Order name: Urine Drug Screen; Complete Time: 11:08 naima 01/04 08:59 Order name: Add On-Lab snw 01/04 09:03 Order name: Iron; Complete Time: 09:28 EDMS 01/04 09:03 Order name: Ferritin; Complete Time: 09:28 EDMS 01/04 09:54 Order name: CBC Smear Scan; Complete Time: 09:56 EDMS 01/04 08:29 Order name: XRAY Chest (1 view); Complete Time: 08:57 naima 01/04 08:29 Order name: CT Traumagram (Head C Spine CAP wo con); Complete Time: 09:33 naima 01/04 08:29 Order name: EKG; Complete Time: 08:30 naima 01/04 08:29 Order name: Cardiac monitoring; Complete Time: 08:56 naima 01/04 08:29 Order name: EKG - Nurse/Tech; Complete Time: 08:56 naima 01/04 08:29 Order name: IV Saline Lock; Complete Time: 08:47 naima 01/04 08:29 Order name: Labs collected and sent; Complete Time: 08:47 naima 01/04 08:29 Order name: O2 Per Protocol; Complete Time: 08:47 naima 01/04 08:29 Order name: O2 Sat Monitoring; Complete Time: 08:47 [facility] 01/04 08:29 Order name: Suicide Screening ([place]); Complete Time: 09:28 [facility] 01/04 11:09 Order name: Recheck B/P; Complete Time: 11:13 snw Administered Medications: 09:30 Drug: NS 0.9% IV 1000 ml IV at 1 bolus Per protocol; 1000 mL bolus Route: IV; Rate: 1 eh3 bolus; Site: right antecubital; 11:00 Follow up: IV Status: Completed infusion; IV Intake: 1000ml eh3 09:30 Drug: Famotidine IVP 20 mg IVP once; dilute with 10 mL 0.9% NaCl; give over 2 minutes eh3 Route: IVP; Site: right antecubital; 10:16 Follow up: Response: No adverse reaction eh3 10:30 Drug: Clindamycin IVPB 600 mg IVPB once over 30 mins; (mix in 50 mL) Route: IVPB; eh3 Infused Over: 30 mins; Site: right antecubital; 11:00 Follow up: Response: No adverse reaction; IV Status: Completed infusion; IV Intake: [id number] Disposition Summary: 01/04/23 10:48 Discharge Ordered Notes: Location: Home(01/04/23 10:48) snw Condition: Stable(01/04/23 10:48) snw Diagnosis - Syncope Near(01/04/23 10:48) snw - Iron deficiency anemia, unspecified(01/04/23 10:48) snw - Dental root caries snw Followup: snw - With: Emergency Department - When: As needed - Reason: Worsening of condition Followup: snw - With: Private Physician - When: 2 - 3 days - Reason: Recheck today's complaints, Continuance of care, Re-evaluation by your physician Discharge Instructions: - Discharge Summary Sheet snw - Iron Deficiency Anemia, Adult snw - Dental Caries, Adult snw - Near-Syncope snw - Syncope snw - Rehydration, Adult snw Forms: - Medication Reconciliation Form snw - Thank You Letter snw - Antibiotic Education snw - Prescription Opioid Use snw - Patient Portal Instructions snw - Leadership Thank You Letter snw Prescriptions: - Clindamycin HCl 300 mg Oral capsule - take 1 capsule ORAL route every 8 hours for 10 days; 30 capsule; Refills: 0, snw Product Selection Permitted Signatures: Dispatcher [employer] EDDimitrios Cole MD MD cha Waters, Shelly, WEIGHT ENGINEER-C WEIGHT ENGINEER-Csnw Maryse Villela, RN RN eh3 Kirsten Murdock, CHANEL RN ko1 Corrections: (The following items were deleted from the chart) 10: 10:19 Observation snw snw : 10:19 Tan Webb snw snw : 10:19 Telemetry/MedSurg (observation) snw snw 10: 10:19 Fair snw snw 10: 10:19 an acute exacerbation snw snw 10: 10:19 are unchanged snw snw : 10:19 Standard snw snw : 10:19 snw snw 10:47 10:19 Syncope Near snw snw 10:47 10:19 Other problems related to social environment snw snw : 10:19 Iron deficiency anemia, unspecified snw snw
[2023-01-04] MEDS ORDERED: CLINDAMYCIN 600MG/D5W 50 ML IV ONE (10:44)
[2023-01-04 10:49] LABS: Specific Gravity 1.013 (1.005-1.030); Urine Bacteria None Seen /HPF (<20); Urine Bilirubin NEGATIVE (Negative); Urine Blood Negative (Negative); Urine Clarity Turbid (Clear); Urine Color Light-Yellow (Yellow); Urine Glucose NEGATIVE (Negative); Urine Mucus Slight /HPF (None Seen); Urine Protein NEGATIVE (Negative); Urine RBC <5 /HPF (None Seen); Urine Urobilinogen Normal (Normal)
[2023-01-04 10:56] LABS: Barbiturates NEGATIVE (NEGATIVE); Benzodiazepines NEGATIVE (NEGATIVE); Cocaine NEGATIVE (NEGATIVE); METHAMPHETAM NEGATIVE (NEGATIVE); Methadone ND (NEGATIVE); Opiates NEGATIVE (NEGATIVE); Phencyclidine NEGATIVE (NEGATIVE); THC Cannibis NEGATIVE (NEGATIVE)
[2023-01-04 11:58] VITALS: TEMP 98
[2023-01-04 12:00] VITALS: O2SAT 98
[2023-01-04 12:01] VITALS: BP 133/91
--- NOTE | 2023-01-04 12:49 | EKG ---
Test Date: 2023-01-04 Test Time: 08:49:01 Fixed Route Operator: Lacie EATON MEASUREMENT RESULTS: Intervals: Rate: 66 OK: 168 QRSD: 94 QT: 392 QTc: 410 [place]: P: 61 OK: 168 QRS: 50 T: 68 INTERPRETIVE STATEMENTS: Normal sinus rhythm Normal ECG Compared to ECG 12/03/2022 12:17:40 No significant changes Electronically Signed On 01-04-23 12:47:58 CDT by Hollis Hanna
== END 2023-01-04 11:29 | disposition home or self-care (01) ==
LOC: ER 08:25
DX: R55 Syncope and collapse (principal); D50.9 Iron deficiency anemia, unspecified; K02.9 Dental caries, unspecified; I10 Essential (primary) hypertension; Z86.73 Personal history of transient ischemic attack (TIA), and cerebral infarction without residual deficits
CPT/HCPCS: 96365; 96361; 93005; 85025; 81001; 80048; 36415; 83735; 85610; 80076; 85730; 84484; 82728; 83690; 83540; 83880; 80307; 70450; 71250; 72125; 71045; 96375; 99285; 80143; 80179; 82077; J7030

== ENCOUNTER 2023-02-07 10:39 | Inpatient (IN) | payer OTHER ==
--- OUTSIDE RECORDS SUMMARY | 2023-02-07 10:49 | XMS REPORT | Continuity of Care Document ---
:1955 Author Organization [facility] t Address [address] [place] [address] [place] [id number] Care Team Providers Name Role Phone Leonides Tran MD Primary Care Physician [phone] MICHAEL ONEAL Attending Clinician Unavailable Doctor Unassigned, [place] Attending Clinician Unavailable PADMAJA CONTE Attending Clinician Unavailable DARBY NIELSEN Attending Clinician Unavailable DARBY NIELSEN Attending Clinician Unavailable Rosaura Tucker Attending Clinician Lab, Ang - Db Attending Clinician Unavailable ROSAURA CASTILLO Attending Clinician Unavailable Taiwo Watson Attending Clinician Unavailable KATHE GHOTRA Attending Clinician Unavailable Kathe Pappas Attending Clinician Katelyn Bartlett Attending Clinician Bhakti Attending Clinician Unavailable Leonides Tran MD Attending Clinician Millie Lyle Attending Clinician Alvin Attending Clinician Unavailable BILL KOHLI Attending Clinician Unavailable Nurse, Adc Pob Immunization Attending Clinician Unavailable Bill Kohli DO Attending Clinician LEONIDES TRAN Attending Clinician Unavailable NARCISO GARCIA Attending Clinician Unavailable Lab, Adc Fam Pob I Attending Clinician Unavailable SAGAR STEWART Attending Clinician Unavailable CHINO MUSA Attending Clinician Unavailable Provider, [facility] Attending Clinician Unavailable Viridiana Oliva [...] Number Effective Date Expiration Date S cisco [employer] HEALTH MGD [id number] 2020 [facility] 00:00:00 MyFit [id number] 2020 (MEDICARE 00:00:00 REPLACEMENT HMO) Problems Condition Condition Condition Status Onset Resolution Last Treating Co mments Source Name Details Category Date Date Treatment Clinician Date Cerebellar Cerebellar Disease Recurre [facility] 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 00:00: [place] positive positive 00 Medica l Branch Thrombocyt Thrombocyt Disease Active 2019-04 U nivers osis osis 2-09 ity of 00:00: [place] 00 Medical Branch Abnormal Abnormal Disease Active 2019-04 Unive rs LFTs LFTs 2- ity of 00:00: [place] 00 Medical Branch 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 (under 40) (under 40) 4- it y of 00:00: [place] 00 Medical Branch Erythrocyt Erythrocyt Disease Active U nivers osis osis 4 ity of 00:00: [place] 00 Medical Branch Microcytos Microcytos Disease Active 2018-0 U nivers is is 4-05 ity of 00:00: [place] 00 Medical Branch Screening Screening Disease Active Overview: Univers for for 4-04 Added ity of colorectal colorectal 00:00: automatic [place] cancer cancer 00 ally from Medical request Branch for surgery [id number] DDD DDD Disease Active Univers (degenerat (degenerat [...] Dash's Dash's Disease Active Univers palsy palsy 1- ity of 00:00: [place] 00 Medical Branch Hypertensi Hypertensi Disease Active U nivers on on ity of [facility] History of History of Disease Active Overview : Univers CVA CVA Formattin ity of (cerebrova (cerebrova g of this [place] scular scular note Medical accident) accident) might be Br anch different from the original. About 20 years ago (around 1999) Stroke Stroke Disease Active Univers ity of [facility] Allergies, Adverse Reactions, Alerts Allergy Allergy Status Severity Reaction(s) Onset Inactive Treating Comm ents Source Name Type Date Date Clinician No Known DA Active U [facility] Allergie 10-08 Clear s 00:00: [place] 00 [facility] NO KNOWN Drug Active Univers ALLERGIE Class ity of S [facility] NO KNOWN Allergy Active [facility] Social History Social Habit Start Date Stop Date Quantity Comments Source Gender identity [facility]it y of [facility] Sexual orientation Univer sity [facility] Exposure to 2022-01-22 2022-02-01 Not sure University of SARS-CoV-2 (event) 00:00:00 11:13:00 [facility] History of Social 2022-02-01 2022-02-01 Univers ity of function 00:00:00 00:00:00 [facility] Tobacco use and 2020-11-04 2020-11-[address] [facility] [address] Lali kes exposure 00:00:00 00:00:00 tobacco non-user [facility] Alcohol intake 2020-11-04 2020-11-04 Ex-drinker PADMAJA Carter es 00:00:00 00:00:00 (finding) [facility] Sex Ass[birth year] At [birth year] PADMAJA Bennett 00:00:00 00:00:00 [facility] Smoking Status Start Date Stop Date Source Unknown if ever smoked [facility] Never smoked tobacco [facility] Medications Ordered Filled Start Stop Current Ordering Indication Dosage Frequency Signature Comments Components Source Medication Medication Date Date Medication? Clinician (SIG) Name Name aspirin 81 2022-0 Yes 81mg Take 1 Unive rs mg chewable 7-26 tablet by ity of tablet 09:55: mouth in [place] [address] the Medical morning. Branch aspirin 81 2022-0 Yes 81mg Take 1 Unive rs mg chewable 7-26 tablet by ity of tablet 09:55: mouth in [place] [address] the Medical morning. Branch aspirin 81 2022-0 Yes 81mg Take 1 Unive rs mg chewable 7-26 tablet by ity of tablet 09:55: mouth in [place] [address] the Medical morning. Branch aspirin 81 2022-0 Yes 81mg Take 1 Unive rs mg chewable 7-26 tablet by ity of tablet 09:55: mouth in [place] [address] the Medical morning. Branch aspirin 81 3-0 Yes 81mg Take 1 Unive rs mg chewable 7-26 tablet by ity of tablet 09:55: mouth in [place] [address] the Medical morning. Branch aspirin 81 3-0 Yes 81mg Take 1 Unive rs mg chewable 7-26 tablet by ity of tablet 09:55: mouth in [place] [address] the Medical morning. Branch aspirin 81 3-0 Yes 81mg Take 1 Unive rs mg chewable 7-26 tablet by ity of tablet 09:55: mouth in [place] [address] the Medical morning. Branch aspirin 81 2023-0 Yes 81mg Take 1 Unive rs mg chewable 7-26 tablet by ity of tablet 09:55: mouth in [place] [address] the Medical morning. Branch aspirin 81 2023-0 Yes 81mg Take 1 Unive rs mg chewable 7-26 tablet by ity of tablet 09:55: mouth in [place] [address] the Medical morning. Branch aspirin 81 3-0 Yes 81mg Take 1 Unive rs mg chewable 7-14 tablet by ity of tablet 13:07: mouth in [place] [address] the Medical morning. Branch aspirin 81 2022-0 Yes 81mg Take 1 Unive rs mg chewable 7-14 tablet by ity of tablet 13:07: mouth in [place] [address] the Medical morning. Branch aspirin 81 2022-0 Yes 81mg Take 1 Unive rs mg chewable 7-14 tablet by ity of tablet 13:07: mouth in [place] [address] the Medical morning. Branch aspirin 81 2022-0 Yes 81mg Take 1 Unive rs mg chewable 7-14 tablet by ity of tablet 13:07: mouth in [place] [address] the Medical morning. Branch aspirin 81 2022-0 Yes 81mg Take 1 Unive rs mg chewable 7-14 tablet by ity of tablet 13:07: mouth in [place] [address] the Medical morning. Branch aspirin 81 2022-0 Yes 81mg Take 1 Unive rs mg chewable 7-14 tablet by ity of tablet 13:07: mouth in [place] [address] the Medical morning. Branch tamsulosin 2022-0 Yes [id number] .4mg Take 1 Univers 0.4 mg 24 7-14 01 capsule by ity of hr capsule 00:00: mouth at [place] 00 bedtime. Medical Branch lisinopriL 2022-0 Yes [id number] 20mg Take 1 U nivers 20 mg 7-14 tablet by ity of tablet 00:00: mouth in [place] [address] the Medical morning. Branch amLODIPine 2022-0 Yes [id number] 7.5mg Take 1.5 Univers 5 mg tablet 7-14 tablets by it y of 00:00: mouth in [place] [address] the Medical morning. Branch atorvastati 2022-0 Yes [id number] 40mg Take 1 Univers n (LIPITOR) 7-14 tablet by ity of 40 mg 00:00: mouth at [facility] 00 bedtime. Medical Branch carvediloL 2022-0 Yes [id number] 6.25mg Take 1 Univers 6.25 mg 7-14 tablet by ity of tablet 00:00: mouth in [place] [address] the Medical morning Branch and 1 tablet in the evening. Take with meals. tamsulosin 2022-0 Yes [id number] .4mg Take 1 Univers 0.4 mg 24 7-14 01 capsule by ity of hr capsule 00:00: mouth at [place] 00 bedtime. Medical Branch lisinopriL 2022-0 Yes [id number] 20mg Take 1 U nivers 20 mg 7-14 tablet by ity of tablet 00:00: mouth in [place] 00 the Medical morning. Branch amLODIPine 2022-0 Yes [id number] 7.5mg Take 1.5 Univers 5 mg tablet 7-14 tablets by it y of 00:00: mouth in [place] 00 the Medical morning. Branch atorvastati 2022-0 Yes [id number] 40mg Take 1 Univers n (LIPITOR) 7-14 tablet by ity of 40 mg 00:00: mouth at [place] tablet 00 bedtime. Medical Branch carvediloL 2022-0 Yes [id number] 6.25mg Take 1 Univers 6.25 mg 7-14 tablet by ity of tablet 00:00: mouth in [place] 00 the Medical morning Branch and 1 tablet in the evening. Take with meals. tamsulosin 2022-0 Yes [id number] .4mg Take 1 Univers 0.4 mg 24 7-14 01 capsule by ity of hr capsule 00:00: mouth at [place] 00 bedtime. Medical Branch lisinopriL 2022-0 Yes [id number] 20mg Take 1 U nivers 20 mg 7-14 tablet by ity of tablet 00:00: mouth in [place] 00 the Medical morning. Branch amLODIPine 2022-0 Yes [id number] 7.5mg Take 1.5 Univers 5 mg tablet 7-14 tablets by it y of 00:00: mouth in [place] 00 the Medical morning. Branch atorvastati 2022-0 Yes [id number] 40mg Take 1 Univers n (LIPITOR) 7-14 tablet by ity of 40 mg 00:00: mouth at [place] tablet 00 bedtime. Medical Branch carvediloL 2022-0 Yes [id number] 6.25mg Take 1 Univers 6.25 mg 7-14 tablet by ity of tablet 00:00: mouth in [place] 00 the Medical morning Branch and 1 tablet in the evening. Take with meals. tamsulosin 3-0 Yes [id number] .4mg Take 1 Univers 0.4 mg 24 7-14 01 capsule by ity of hr capsule 00:00: mouth at [place] 00 bedtime. Medical Branch lisinopriL 2022-0 Yes [id number] 20mg Take 1 U nivers 20 mg 7-14 tablet by ity of tablet 00:00: mouth in [place] the Medical morning. Branch amLODIPine 2022-0 Yes [id number] 7.5mg Take 1.5 Univers 5 mg tablet 7-14 tablets by it y of 00:00: mouth in [place] the Medical morning. Branch atorvastati 2022-0 Yes [id number] 40mg Take 1 Univers n (LIPITOR) 7-14 tablet by ity of 40 mg 00:00: mouth at [place] tablet 00 bedtime. Medical Branch carvediloL 2022-0 Yes [id number] 6.25mg Take 1 Univers 6.25 mg 7-14 tablet by ity of tablet 00:00: mouth in [place] 00 the Medical morning Branch and 1 tablet in the evening. Take with meals. tamsulosin 2022-0 Yes [id number] .4mg Take 1 Univers 0.4 mg 24 7-14 01 capsule by ity of hr capsule 00:00: mouth at [place] 00 bedtime. Medical Branch lisinopriL 2022-0 Yes [id number] 20mg Take 1 U nivers 20 mg 7-14 tablet by ity of tablet 00:00: mouth in [place] the morning. Branch amLODIPine 2022-0 Yes [id number] 7.5mg Take 1.5 Univers 5 mg tablet 7-14 tablets by it y of 00:00: mouth in [place] the morning. Branch atorvastati 2022-0 Yes [id number] 40mg Take 1 Univers n (LIPITOR) 7-14 tablet by ity of 40 mg 00:00: mouth at [place] tablet 00 bedtime. Medical Branch carvediloL 2022-0 Yes [id number] 6.25mg Take 1 Univers 6.25 mg 7-14 tablet by ity of tablet 00:00: mouth in [place] 00 the Medical morning Branch and 1 tablet in the evening. Take with meals. tamsulosin 3-0 Yes [id number] .4mg Take 1 Univers 0.4 mg 24 7-14 01 capsule by ity of hr capsule 00:00: mouth at [place] 00 bedtime. Medical Branch lisinopriL 2022-0 Yes [id number] 20mg Take 1 U nivers 20 mg 7-14 tablet by ity of tablet 00:00: mouth in [place] 00 the Medical morning. Branch amLODIPine 2022-0 Yes [id number] 7.5mg Take 1.5 Univers 5 mg tablet 7-14 tablets by it y of 00:00: mouth in [place] 00 the Medical morning. Branch atorvastati 2022-0 Yes [id number] 40mg Take 1 Univers n (LIPITOR) 7-14 tablet by ity of 40 mg 00:00: mouth at [place] tablet 00 bedtime. Medical Branch carvediloL 2022-0 Yes [id number] 6.25mg Take 1 Univers 6.25 mg 7-14 tablet by ity of tablet 00:00: mouth in [place] 00 the Medical morning Branch and 1 tablet in the evening. Take with meals. tamsulosin 2022-0 Yes [id number] .4mg Take 1 Univers 0.4 mg 24 7-14 01 capsule by ity of hr capsule 00:00: mouth at [place] 00 bedtime. Medical Branch lisinopriL 2022-0 Yes [id number] 20mg Take 1 U nivers 20 mg 7-14 tablet by ity of tablet 00:00: mouth in [place] 00 the Medical morning. Branch amLODIPine 2022-0 Yes [id number] 7.5mg Take 1.5 Univers 5 mg tablet 7-14 tablets by it y of 00:00: mouth in [place] the Medical morning. Branch atorvastati 2022-0 Yes [id number] 40mg Take 1 Univers n (LIPITOR) 7-14 tablet by ity of 40 mg 00:00: mouth at [place] tablet 00 bedtime. Medical Branch carvediloL 2022-0 Yes [id number] 6.25mg Take 1 Univers 6.25 mg 7-14 tablet by ity of tablet 00:00: mouth in [place] 00 the Medical morning Branch and 1 tablet in the evening. Take with meals. tamsulosin 3-0 Yes [id number] .4mg Take 1 Univers 0.4 mg 24 7-14 01 capsule by ity of hr capsule 00:00: mouth at [place] 00 bedtime. Medical Branch lisinopriL 2022-0 Yes [id number] 20mg Take 1 U nivers 20 mg 7-14 tablet by ity of tablet 00:00: mouth in [place] 00 the Medical morning. Branch amLODIPine 2022-0 Yes [id number] 7.5mg Take 1.5 Univers 5 mg tablet 7-14 tablets by it y of 00:00: mouth in [place] 00 the Medical morning. Branch atorvastati 2022-0 Yes [id number] 40mg Take 1 Univers n (LIPITOR) 7-14 tablet by ity of 40 mg 00:00: mouth at [place] tablet 00 bedtime. Medical Branch carvediloL 2022-0 Yes [id number] 6.25mg Take 1 Univers 6.25 mg 7-14 tablet by ity of tablet 00:00: mouth in [place] 00 the Medical morning Branch and 1 tablet in the evening. Take with meals. tamsulosin 2022-0 Yes [id number] .4mg Take 1 Univers 0.4 mg 24 7-14 01 capsule by ity of hr capsule 00:00: mouth at [place] as 00 bedtime. Medical Branch lisinopriL 2022-0 Yes [id number] 20mg Take 1 U nivers 20 mg 7-14 tablet by ity of tablet 00:00: mouth in [place] 00 the Medical morning. Branch amLODIPine 2022-0 Yes [id number] 7.5mg Take 1.5 Univers 5 mg tablet 7-14 tablets by it y of 00:00: mouth in [place] the Medical morning. Branch atorvastati 2022-0 Yes [id number] 40mg Take 1 Univers n (LIPITOR) 7-14 tablet by ity of 40 mg 00:00: mouth at [place] tablet 00 bedtime. Medical Branch carvediloL 2022-0 Yes [id number] 6.25mg Take 1 Univers 6.25 mg 7-14 tablet by ity of tablet 00:00: mouth in [place] 00 the Medical morning Branch and 1 tablet in the evening. Take with meals. tamsulosin 2022-0 Yes [id number] .4mg Take 1 Univers 0.4 mg 24 7-14 01 capsule by ity of hr capsule 00:00: mouth at [place] 00 bedtime. Medical Branch lisinopriL 2022-0 Yes [id number] 20mg Take 1 U nivers 20 mg 7-14 tablet by ity of tablet 00:00: mouth in [place] 00 the Medical morning. Branch amLODIPine 2022-0 Yes [id number] 7.5mg Take 1.5 Univers 5 mg tablet 7-14 tablets by it y of 00:00: mouth in [place] 00 the Medical morning. Branch atorvastati 2022-0 Yes [id number] 40mg Take 1 Univers n (LIPITOR) 7-14 tablet by ity of 40 mg 00:00: mouth at [place] tablet 00 bedtime. Medical Branch carvediloL 2022-0 Yes [id number] 6.25mg Take 1 Univers 6.25 mg 7-14 tablet by ity of tablet 00:00: mouth in [place] 00 the Medical morning Branch and 1 tablet in the evening. Take with meals. tamsulosin 2022-0 Yes [id number] .4mg Take 1 Univers 0.4 mg 24 7-14 01 capsule by ity of hr capsule 00:00: mouth at [place] 00 bedtime. Medical Branch lisinopriL 2022-0 Yes [id number] 20mg Take 1 U nivers 20 mg 7-14 tablet by ity of tablet 00:00: mouth in [place] 00 the Medical morning. Branch amLODIPine 2022-0 Yes [id number] 7.5mg Take 1.5 Univers 5 mg tablet 7-14 tablets by it y of 00:00: mouth in [place] 00 the Medical morning. Branch atorvastati 2022-0 Yes [id number] 40mg Take 1 Univers n (LIPITOR) 7-14 tablet by ity of 40 mg 00:00: mouth at [place] tablet 00 bedtime. Medical Branch carvediloL 2022-0 Yes [id number] 6.25mg Take 1 Univers 6.25 mg 7-14 tablet by ity of tablet 00:00: mouth in [place] 00 the Medical morning Branch and 1 tablet in the evening. Take with meals. tamsulosin 2022-0 Yes [id number] .4mg Take 1 Univers 0.4 mg 24 7-14 01 capsule by ity of hr capsule 00:00: mouth at [place] 00 bedtime. Medical Branch lisinopriL 2022-0 Yes [id number] 20mg Take 1 U nivers 20 mg 7-14 tablet by ity of tablet 00:00: mouth in [place] 00 the Medical morning. Branch amLODIPine 2022-0 Yes [id number] 7.5mg Take 1.5 Univers 5 mg tablet 7-14 tablets by it y of 00:00: mouth in [place] 00 the Medical morning. Branch atorvastati 2022-0 Yes [id number] 40mg Take 1 Univers n (LIPITOR) 7-14 tablet by ity of 40 mg 00:00: mouth at [place] tablet 00 bedtime. Medical Branch carvediloL Yes [id number] 6.25mg Take 1 Univers 6.25 mg 7-14 tablet by ity of tablet 00:00: mouth in [place] 00 the Medical morning Branch and 1 tablet in the evening. Take with meals. tamsulosin Yes [id number] .4mg Take 1 Univers 0.4 mg 24 7-14 01 capsule by ity of hr capsule 00:00: mouth at [place] 00 bedtime. Medical Branch lisinopriL Yes [id number] 20mg Take 1 U nivers 20 mg 7-14 tablet by ity of tablet 00:00: mouth in [place] 00 the Medical morning. Branch amLODIPine Yes [id number] 7.5mg Take 1.5 Univers 5 mg tablet 7-14 tablets by it y of 00:00: mouth in [place] 00 the Medical morning. Branch atorvastati Yes [id number] 40mg Take 1 Univers n (LIPITOR) 7-14 tablet by ity of 40 mg 00:00: mouth at [place] tablet 00 bedtime. Medical Branch carvediloL Yes [id number] 6.25mg Take 1 Univers 6.25 mg 7-14 tablet by ity of tablet 00:00: mouth in [place] 00 the Medical morning Branch and 1 tablet in the evening. Take with meals. ferrous 2021-04 Yes [id number] 324mg Take 1 Uni vers sulfate 324 1-04 tablet by ity of mg (65 mg 00:00: mouth [place] iron) EC 00 daily with Medic al tablet breakfast. Branch ferrous 2021-04 Yes [id number] 324mg Take 1 Uni vers sulfate 324 1-04 tablet by ity of mg (65 mg 00:00: mouth [place] iron) EC 00 daily with Medic al tablet breakfast. Branch ferrous 2021-04 Yes [id number] 324mg Take 1 Uni vers sulfate 324 1-04 tablet by ity of mg (65 mg 00:00: mouth [place] iron) EC 00 daily with Medic al tablet breakfast. Branch ferrous 2021-04 Yes [id number] 324mg Take 1 Uni vers sulfate 324 1-04 tablet by ity of mg (65 mg 00:00: mouth [place] iron) EC 00 daily with Medic al tablet breakfast. Branch ferrous 2021-04 Yes [id number] 324mg Take 1 Uni vers sulfate 324 1-04 tablet by ity of mg (65 mg 00:00: mouth [place] iron) EC 00 daily with Medic al tablet breakfast. Branch ferrous 2021-04 Yes [id number] 324mg Take 1 Uni vers sulfate 324 1-04 tablet by ity of mg (65 mg 00:00: mouth [place] iron) EC 00 daily with Medic al tablet breakfast. Branch ferrous 2021-04 Yes [id number] 324mg Take 1 Uni vers sulfate 324 1-04 tablet by ity of mg (65 mg 00:00: mouth [place] iron) EC 00 daily with Medic al tablet breakfast. Branch ferrous 2021-04 Yes [id number] 324mg Take 1 Uni vers sulfate 324 1-04 tablet by ity of mg (65 mg 00:00: mouth [place] iron) EC 00 daily with Medic al tablet breakfast. Branch ferrous 2021-04 Yes [id number] 324mg Take 1 Uni vers sulfate 324 1-04 tablet by ity of mg (65 mg 00:00: mouth [place] iron) EC 00 daily with Medic al tablet breakfast. Branch ferrous 2021-04 Yes [id number] 324mg Take 1 Uni vers sulfate 324 1-04 tablet by ity of mg (65 mg 00:00: mouth [place] iron) EC 00 daily with Medic al tablet breakfast. Branch ferrous 2021-04 Yes [id number] 324mg Take 1 Uni vers sulfate 324 1-04 tablet by ity of mg (65 mg 00:00: mouth [place] iron) EC 00 daily with Medic al tablet breakfast. Branch ferrous 2021-04 Yes [id number] 324mg Take 1 Uni vers sulfate 324 1-04 tablet by ity of mg (65 mg 00:00: mouth [place] iron) EC 00 daily with Medic al tablet breakfast. Branch ferrous 2021-04 Yes [id number] 324mg Take 1 Uni vers sulfate 324 1-04 tablet by ity of mg (65 mg 00:00: mouth [place] iron) EC 00 daily with Medic al tablet breakfast. Branch ferrous 2021-04 Yes [id number] 324mg Take 1 Uni vers sulfate 324 1-04 tablet by ity of mg (65 mg 00:00: mouth [place] iron) EC 00 daily with Medic al tablet breakfast. Branch ferrous 2021-04 Yes [id number] 324mg Take 1 Uni vers sulfate 324 1-04 tablet by ity of mg (65 mg 00:00: mouth [place] iron) EC 00 daily with Medic al tablet breakfast. Branch ferrous 2021-04 Yes [id number] 324mg Take 1 Uni vers sulfate 324 1-04 tablet by ity of mg (65 mg 00:00: mouth [place] iron) EC 00 daily with Medic al tablet breakfast. Branch tamsulosin 2021-04 Yes [id number] .4mg Take 1 Univers 0.4 mg 24 0-31 capsule by ity of hr capsule 00:00: mouth at [place] 00 bedtime. Medical Branch tamsulosin 2021-04 Yes [id number] .4mg Take 1 Univers 0.4 mg 24 0-31 capsule by ity of hr capsule 00:00: mouth at [place] 00 bedtime. Medical Branch tamsulosin 2021-04 Yes [id number] .4mg Take 1 Univers 0.4 mg 24 0-31 capsule by ity of hr capsule 00:00: mouth at [place] 00 bedtime. Medical Branch tamsulosin 2021-04 Yes [id number] .4mg Take 1 Univers 0.4 mg 24 0-31 capsule by ity of hr capsule 00:00: mouth at [place] 00 bedtime. Medical Branch tamsulosin 2021-04 Yes [id number] .4mg Take 1 Univers 0.4 mg 24 0-31 capsule by ity of hr capsule 00:00: mouth at [place] 00 bedtime. Medical Branch tamsulosin 2021-04 Yes [id number] .4mg Take 1 Univers 0.4 mg 24 0-31 capsule by ity of hr capsule 00:00: mouth at [place] 00 bedtime. Medical Branch tamsulosin 2021-04 Yes [id number] .4mg Take 1 Univers 0.4 mg 24 0-31 capsule by ity of hr capsule 00:00: mouth at [place] 00 bedtime. Medical Branch tamsulosin 2021-04 Yes [id number] .4mg Take 1 Univers 0.4 mg 24 0-31 capsule by ity of hr capsule 00:00: mouth at [place] 00 bedtime. Medical Branch tamsulosin 2021-04 Yes [id number] .4mg Take 1 Univers 0.4 mg 24 0-31 capsule by ity of hr capsule 00:00: mouth at [place] 00 bedtime. Medical Branch tamsulosin 2021-04- No [id number] .4mg Take 1 Univers 0.4 mg 24 0-31 07-14 capsule by ity of hr capsule 00:00: 00:00 mouth at [place] 00 :00 bedtime. Medical Branch tamsulosin 2021-04 2023- No [id number] .4mg Take 1 Univers 0.4 mg 24 0-31 07-14 capsule by ity of hr capsule 00:00: 00:00 mouth at [place] 00 :00 bedtime. Medical Branch tiZANidine 2021-04 Yes [id number] 4mg Take 1 Univers 4 mg tablet 0-21 tablet by ity of 00:00: mouth [place] 00 every 8 Medical (eight) Branch hours as needed (muscle pain or spasm). tiZANidine 2021-04 Yes [id number] 4mg Take 1 Univers 4 mg tablet 0-21 tablet by ity of 00:00: mouth [place] 00 every 8 Medical (eight) Branch hours as needed (muscle pain or spasm). tiZANidine 2021-04 Yes [id number] 4mg Take 1 Univers 4 mg tablet 0-21 tablet by ity of 00:00: mouth [place] 00 every 8 Medical (eight) Branch hours as needed (muscle pain or spasm). tiZANidine 2021-04 Yes [id number] 4mg Take 1 Univers 4 mg tablet 0-21 tablet by ity of 00:00: mouth [place] 00 every 8 Medical (eight) Branch hours as needed (muscle pain or spasm). tiZANidine 2021-04 Yes [id number] 4mg Take 1 Univers 4 mg tablet 0-21 tablet by ity of 00:00: mouth [place] 00 every 8 Medical (eight) Branch hours as needed (muscle pain or spasm). tiZANidine 2021-04 Yes [id number] 4mg Take 1 Univers 4 mg tablet 0-21 tablet by ity of 00:00: mouth [place] 00 every 8 Medical (eight) Branch hours as needed (muscle pain or spasm). tiZANidine 2021-04 Yes [id number] 4mg Take 1 Univers 4 mg tablet 0-21 tablet by ity of 00:00: mouth [place] 00 every 8 Medical (eight) Branch hours as needed (muscle pain or spasm). tiZANidine 2021-04 Yes [id number] 4mg Take 1 Univers 4 mg tablet 0-21 tablet by ity of 00:00: mouth [place] 00 every 8 Medical (eight) Branch hours as needed (muscle pain or spasm). tiZANidine 2021-04 Yes [id number] 4mg Take 1 Univers 4 mg tablet 0-21 tablet by ity of 00:00: mouth [place] 00 every 8 Medical (eight) Branch hours as needed (muscle pain or spasm). tiZANidine 2021-04 Yes [id number] 4mg Take 1 Univers 4 mg tablet 0-21 tablet by ity of 00:00: mouth [place] 00 every 8 Medical (eight) Branch hours as needed (muscle pain or spasm). tiZANidine 2021-04 Yes [id number] 4mg Take 1 Univers 4 mg tablet 0-21 tablet by ity of 00:00: mouth [place] 00 every 8 Medical (eight) Branch hours as needed (muscle pain or spasm). tiZANidine 2021-04 Yes [id number] 4mg Take 1 Univers 4 mg tablet 0-21 tablet by ity of 00:00: mouth [place] 00 every 8 Medical (eight) Branch hours as needed (muscle pain or spasm). tiZANidine 2021-04 Yes [id number] 4mg Take 1 Univers 4 mg tablet 0-21 tablet by ity of 00:00: mouth [place] 00 every 8 Medical (eight) Branch hours as needed (muscle pain or spasm). tiZANidine 2021-04 Yes [id number] 4mg Take 1 Univers 4 mg tablet 0-21 tablet by ity of 00:00: mouth [place] 00 every 8 Medical (eight) Branch hours as needed (muscle pain or spasm). tiZANidine 2021-04 Yes [id number] 4mg Take 1 [facility] 4 mg tablet 0-21 tablet by [facility] 00:00: mouth [place] 00 every 8 Medical (eight) Branch hours as needed (muscle pain or spasm). tiZANidine 2021-04 Yes [id number] 4mg Take 1 [facility] 4 mg tablet 0-21 tablet by [facility] 00:00: mouth [place] 00 every 8 Medical (eight) Branch hours as needed (muscle pain or spasm). tiZANidine 2021-04 Yes [id number] 4mg Take 1 [facility] 4 mg tablet 0-21 tablet by [facility] 00:00: mouth [place] 00 every 8 Medical (eight) Branch hours as needed (muscle pain or spasm). tiZANidine 2021-04 Yes [id number] 4mg Take 1 [facility] 4 mg tablet 0-21 tablet by [facility] 00:00: mouth [place] 00 every 8 Medical (eight) Branch hours as needed (muscle pain or spasm). tiZANidine 2021-04 Yes [id number] 4mg Take 1 [facility] 4 mg tablet 0-21 tablet by [facility] 00:00: mouth [place] 00 every 8 Medical (eight) Branch hours as needed (muscle pain or spasm). tiZANidine 2021-04 Yes [id number] 4mg Take 1 [facility] 4 mg tablet 0-21 tablet by [facility] 00:00: mouth [place] 00 every 8 Medical (eight) Branch hours as needed (muscle pain or spasm). tiZANidine 2021-04 Yes [id number] 4mg Take 1 [facility] 4 mg tablet 0-21 tablet by [facility] 00:00: mouth [place] 00 every 8 Medical (eight) Branch hours as needed (muscle pain or spasm). tiZANidine 2021-04 Yes [id number] 4mg Take 1 [facility] 4 mg tablet 0-21 tablet by [facility] 00:00: mouth [place] 00 every 8 Medical (eight) Branch hours as needed (muscle pain or spasm). tiZANidine 2021-04 Yes [id number] 4mg Take 1 [facility] 4 mg tablet 0-21 tablet by [facility] 00:00: mouth [place] 00 every 8 Medical (eight) Branch hours as needed (muscle pain or spasm). tiZANidine 2021-04 Yes [id number] 4mg Take 1 [facility] 4 mg tablet 0-21 tablet by [facility] 00:00: mouth [place] 00 every 8 Medical (eight) Branch hours as needed (muscle pain or spasm). tiZANidine 2021-04 Yes [id number] 4mg Take 1 [facility] 4 mg tablet 0-21 tablet by [facility] 00:00: mouth [place] 00 every 8 Medical (eight) Branch hours as needed (muscle pain or spasm). LISINOPRIL 2021-0 Yes [id number] Take 1 [facility] 20 mg 2-07 tablet by [facility] tablet 00:00: mouth once [place] 00 daily Medical Branch LISINOPRIL 2021-0 Yes [id number] Take 1 [facility] 20 mg 2-07 tablet by [facility] tablet 00:00: mouth once [place] 00 daily Medical Branch LISINOPRIL 2021-0 Yes [id number] Take 1 [facility] 20 mg 2-07 tablet by [facility] tablet 00:00: mouth once daily Medical Branch LISINOPRIL 2022-0 Yes [id number] Take 1 [facility] 20 mg 2-07 tablet by [facility] tablet 00:00: mouth once daily [facility] Branch LISINOPRIL 2022-0 Yes [id number] Take 1 [facility] 20 mg 2-07 tablet by [facility] tablet 00:00: mouth once daily [facility] Branch LISINOPRIL 2022-0 Yes [id number] Take 1 [facility] 20 mg 2-07 tablet by [facility] tablet 00:00: mouth once daily [facility] LISINOPRIL 2022-0 Yes [id number] Take 1 [facility] 20 mg 2-07 tablet by [facility] tablet 00:00: mouth once daily [facility] Branch LISINOPRIL 2022-0 Yes [id number] Take 1 [facility] 20 mg 2-07 tablet by [facility] tablet 00:00: mouth once daily [facility] Branch LISINOPRIL 2022-0 Yes [id number] Take 1 [facility] 20 mg 2-07 tablet by [facility] tablet 00:00: mouth once daily [facility] Branch LISINOPRIL 2022-0 Yes [id number] Take 1 [facility] 20 mg 2-07 tablet by [facility] tablet 00:00: mouth once daily [facility] Branch LISINOPRIL 2022-0 Yes [id number] Take 1 [facility] 20 mg 2-07 tablet by [facility] tablet 00:00: mouth once daily [facility] Branch LISINOPRIL 2022-0 Yes [id number] Take 1 [facility] 20 mg 2-07 tablet by [facility] tablet 00:00: mouth once daily [facility] Branch LISINOPRIL 2022-0 Yes [id number] Take 1 [facility] 20 mg 2-07 tablet by [facility] tablet 00:00: mouth once daily [facility] LISINOPRIL 2022-0 Yes [id number] Take 1 [facility] 20 mg 2-07 tablet by [facility] tablet 00:00: mouth once daily [facility] Branch LISINOPRIL 2022-0 Yes [id number] Take 1 [facility] 20 mg 2-07 tablet by [facility] tablet 00:00: mouth once daily [facility] LISINOPRIL 2022-0 2023- No [id number] Take 1 [facility] 20 mg 05-11 tablet by [facility] tablet 00:00: 00:[place] mouth [place] :[place] daily [facility] LISINOPRIL 2021-0 2022- No [id number] Take 1 [facility] 20 mg 05-11 tablet by [facility] tablet 00:00: 00:[place] mouth [place] 00 :00 daily [facility] aspirin 81 2020-0 Yes 81mg QD Take [address] [facility] chewable 8-05 by [facility] tablet 14:02: daily. [address] aspirin 81 2020-0 Yes 81mg QD Take [address] [facility] chewable 8-05 by [facility] tablet 14:02: daily. [address] aspirin 81 2020-0 Yes 81mg QD Take [address] [facility] chewable 8-05 by [facility] tablet 14:02: daily. [address] aspirin 81 2020-0 Yes 81mg QD Take [address] [facility] chewable 8-05 by [facility] tablet 14:02: daily. [address] amLODIPine 0 Yes 7.5mg QD Take 7.[address] [facility] [address] [facility] (NORVASC) 5 6-01 mg [facility] tablet 00:[facility]: mouth [facility] 00 daily. [place] tiZANidine 0 Yes 4mg Take [address] [facility] (ZANAFLEX) 6-01 [facility] tablet 00:[facility]: every 8 [facility] 00 (eight) Center hours as needed. amLODIPine 2020-0 Yes 7.5mg QD Take 7.[address] [facility] [address] [facility] (NORVASC) 5 6-01 [facility] tablet 00:00: mouth [facility] 00 daily. [place] tiZANidine 2020-0 Yes 4mg Take [address] [facility] [address] [facility] (ZANAFLEX) 6-01 [facility] tablet 00:00: every 8 Med ical 00 (eight) Center hours as needed. amLODIPine 2020-0 Yes 7.5mg QD Take 7.[address] [facility] [address] [facility] (NORVASC) 5 6-01 mg [facility] tablet 00:00: mouth Medical 00 daily. [place] tiZANidine 2020-0 Yes 4mg Take 4 mg [...] Center hours as needed. amLODIPine 2020-0 Yes [id number] 7.5mg Take 1.5 [facility] 5 mg tablet 6-01 tablets by [facility] of 00:00: mouth [place] 00 daily. [facility] amLODIPine 2020-0 Yes [id number] 7.5mg Take 1.5 [facility] 5 mg tablet 6-01 tablets by [facility] of 00:00: mouth [place] 00 daily. [facility] amLODIPine 2020-0 Yes [id number] 7.5mg Take 1.5 [facility] 5 mg tablet 6-01 tablets by [facility] of 00:00: mouth [place] 00 daily. [facility] amLODIPine 2020-0 Yes [id number] 7.5mg Take 1.5 [facility] 5 mg tablet 6-01 tablets by [facility] of 00:00: mouth [place] 00 daily. [facility] amLODIPine 2020-0 Yes [id number] 7.5mg Take 1.5 [facility] 5 mg tablet 6-01 tablets by [facility] of 00:00: mouth [place] 00 daily. [facility] amLODIPine 2020-0 Yes [id number] 7.5mg Take 1.5 [facility] 5 mg tablet 6-01 tablets by [facility] of 00:00: mouth [place] 00 daily. [facility] tiZANidine 2020-0 Yes [id number] 4mg Take 1 [facility] 4 mg tablet 6-01 tablet by [facility] 00:00: mouth [place] 00 every 8 Medical (eight) Branch hours as needed (muscle pain or spasm). amLODIPine 2020-0 Yes [id number] 7.5mg Take 1.5 [facility] 5 mg tablet 6-01 tablets by [facility] of 00:00: mouth [place] 00 daily. [facility] tiZANidine 2020-0 Yes [id number] 4mg Take 1 [facility] 4 mg tablet 6-01 tablet by [facility] 00:00: mouth [place] 00 every 8 Medical (eight) Branch hours as needed (muscle pain or spasm). amLODIPine 2020-0 Yes [id number] 7.5mg Take 1.5 [facility] 5 mg tablet 6-01 tablets by [facility] of 00:00: mouth [place] 00 daily. [facility] tiZANidine 2020-0 Yes [id number] 4mg Take 1 [facility] 4 mg tablet 6-01 tablet by [facility] 00:00: mouth [place] 00 every 8 Medical (eight) Branch hours as needed (muscle pain or spasm). amLODIPine 2020-0 Yes [id number] 7.5mg Take 1.5 [facility] 5 mg tablet 6-01 tablets by [facility] of 00:00: mouth [place] 00 daily. [facility] tiZANidine 2020-0 Yes [id number] 4mg Take 1 [facility] 4 mg tablet 6-01 tablet by [facility] 00:00: mouth [place] 00 every 8 Medical (eight) Branch hours as needed (muscle pain or spasm). amLODIPine 2020-0 Yes [id number] 7.5mg Take 1.5 [facility] 5 mg tablet 6-01 tablets by [facility] of 00:00: mouth [place] 00 daily. [facility] tiZANidine 2020-0 Yes [id number] 4mg Take 1 [facility] 4 mg tablet 6-01 tablet by [facility] 00:00: mouth [place] 00 every 8 Medical (eight) Branch hours as needed (muscle pain or spasm). amLODIPine 2020-0 Yes [id number] 7.5mg Take 1.5 [facility] 5 mg tablet 6-01 tablets by [facility] of 00:00: mouth [place] 00 daily. [facility] tiZANidine 2020-0 Yes [id number] 4mg Take 1 [facility] 4 mg tablet 6-01 tablet by [facility] 00:00: mouth [place] 00 every 8 Medical (eight) Branch hours as needed (muscle pain or spasm). amLODIPine 2020-0 Yes [id number] 7.5mg Take 1.5 [facility] 5 mg tablet 6-01 tablets by [facility] of 00:00: mouth [place] 00 daily. [facility] tiZANidine 2020-0 Yes [id number] 4mg Take 1 [facility] 4 mg tablet 6-01 tablet by [facility] 00:00: mouth [place] 00 every 8 Medical (eight) Branch hours as needed (muscle pain or spasm). amLODIPine 2020-0 Yes [id number] 7.5mg Take 1.5 [facility] 5 mg tablet 6-01 tablets by [facility] of 00:00: mouth [place] 00 daily. [facility] tiZANidine 2020-0 Yes [id number] 4mg Take 1 [facility] 4 mg tablet 6-01 tablet by [facility] of 00:00: mouth [place] 00 every 8 Medical (eight) Branch hours as needed (muscle pain or spasm). amLODIPine 2020-0 Yes [id number] 7.5mg Take 1.5 [facility] 5 mg tablet 6-01 tablets by [facility] of 00:00: mouth [place] 00 daily. Medical [facility] tiZANidine 2020-0 Yes [id number] 4mg Take 1 [facility] 4 mg tablet 6-01 tablet by [facility] of 00:00: mouth [place] 00 every 8 Medical (eight) Branch hours as needed (muscle pain or spasm). amLODIPine 2020-0 Yes [id number] 7.5mg Take 1.5 [facility] 5 mg tablet 6-01 tablets by [facility] of 00:00: mouth [place] 00 daily. [facility] tiZANidine 2020-0 Yes [id number] 4mg Take 1 [facility] 4 mg tablet 6-01 tablet by [facility] 00:00: mouth [place] 00 every 8 Medical (eight) Branch hours as needed (muscle pain or spasm). amLODIPine 2020-0 Yes [id number] 7.5mg Take 1.5 [facility] 5 mg tablet 6-01 tablets by [facility] of 00:00: mouth [place] 00 daily. [facility] tiZANidine 2020-0 Yes [id number] 4mg Take 1 [facility] 4 mg tablet 6-01 tablet by [facility] 00:00: mouth [place] 00 every 8 Medical (eight) Branch hours as needed (muscle pain or spasm). amLODIPine 2020-0 Yes [id number] 7.5mg Take 1.5 [facility] 5 mg tablet 6-01 tablets by [facility] of 00:00: mouth [place] 00 daily. Medical [facility] tiZANidine 2020-0 Yes [id number] 4mg Take 1 [facility] 4 mg tablet 6-01 tablet by [facility] of 00:00: mouth [place] 00 every 8 Medical (eight) Branch hours as needed (muscle pain or spasm). amLODIPine 2020-0 Yes [id number] 7.5mg Take 1.5 [facility] 5 mg tablet 6-01 tablets by [facility] of 00:00: mouth [place] 00 daily. Medical Branch tiZANidine 2021-0 Yes [id number] 4mg Take 1 [facility] 4 mg tablet 6-01 tablet by [facility] of 00:00: mouth [place] 00 every 8 Medical (eight) Branch hours as needed (muscle pain or spasm). amLODIPine 0 Yes [id number] 7.5mg Take 1.5 [facility] 5 mg tablet 6-01 tablets by it y of 00:00: mouth [place] 00 daily. Medical Branch tiZANidine 0 Yes [id number] 4mg Take 1 [facility] 4 mg tablet 6-01 tablet by [facility] of 00:00: mouth [place] 00 every 8 Medical (eight) Branch hours as needed (muscle pain or spasm). amLODIPine 0 Yes [id number] 7.5mg Take 1.5 [facility] 5 mg tablet 6-01 tablets by [facility] of 00:00: mouth [place] 00 daily. [facility] amLODIPine 0 Yes [id number] 7.5mg Take 1.5 [facility] 5 mg tablet 6-01 tablets by [facility] of 00:00: mouth [place] 00 daily. [facility] amLODIPine 0 Yes [id number] 7.5mg Take 1.5 [facility] 5 mg tablet 6-01 tablets by [facility] y of 00:00: mouth [place] 00 daily. [facility] amLODIPine 0 Yes [id number] 7.5mg Take 1.5 [facility] 5 mg tablet 6-01 tablets by it y of 00:00: mouth [place] 00 daily. [facility] amLODIPine 0 Yes [id number] 7.5mg Take 1.5 [facility] 5 mg tablet 6-01 tablets by it y of 00:00: mouth [place] 00 daily. [facility] amLODIPine 0 Yes [id number] 7.5mg Take 1.5 [facility] 5 mg tablet 6-01 tablets by it y of 00:00: mouth [place] 00 daily. [facility] amLODIPine 2020-0 2022- No [id number] 7.5mg Take 1.5 [facility] 5 mg tablet 6-04 10-14 tablets by i ty of 00:00: 00:00 mouth [place] 00 :00 daily. [facility] amLODIPine 0 3- No [id number] 7.5mg Take 1.5 [facility] 5 mg tablet 6-04 10-14 tablets by i ty of 00:00: 00:00 mouth [place] 00 :00 daily. [facility] tiZANidine 2021- No [id number] 4mg Take 1 [facility] 4 mg tablet 09-02- tablet by it y of 00:00: 00:00 mouth [place] 00 :00 every 8 Medical (eight) Branch hours as needed (muscle pain or spasm). tiZANidine 2021- No [id number] 4mg Take 1 [facility] 4 mg tablet 09-02 10- tablet by it y of 00:00: 00:00 mouth [place] 00 :00 every 8 Medical (eight) Branch hours as needed (muscle pain or spasm). clindamycin 2020- No [id number] 300mg Take 1 [facility] 300 mg 05-09-16 capsule by [facility] capsule 00:00: 05:59 mouth 4 [place] 00 :00 (four) Medical times Branch daily for 10 days. atorvastati 2019-04 Yes 40mg QD Take [address] [facility] (LIPITOR) 1-30 by [facility] 40 MG 00:00: daily. Medical tablet 00 [place] carvediloL 2019-04 Yes 6.25mg Q.5D Take 6.[address] [facility] (COREG) 1-30 [facility] 6.25 MG 00:00: mouth 2 Medical tablet 00 (two) Center times daily. lisinopriL 2019-04 Yes 20mg QD Take [address] [facility] (PRINIVIL,Z 1-30 by [facility] ESTRIL) 20 00:00: daily. Medic al MG tablet 00 [place] tamsulosin 2019-04 Yes .4mg QD Take 0.[address] [facility] (FLOMAX) 1-30 mg [facility] 0.4 mg Cap 00:00: mouth Medica l 24 hr 00 daily. [place] capsule atorvastati 2019-04 Yes 40mg QD Take [address] [facility] (LIPITOR) 1-30 by [facility] 40 MG 00:00: daily. Medical tablet 00 [place] carvediloL 2019-04 Yes 6.25mg Q.5D Take 6.[address] [facility] (COREG) 1-30 [facility] 6.25 MG 00:00: mouth 2 Medical tablet 00 (two) Center times daily. lisinopriL 2019-04 Yes 20mg QD Take [address] [facility] (PRINIVIL,Z 1-30 by [facility] ESTRIL) 20 00:00: daily. Medic al MG tablet 00 [place] tamsulosin 2019-04 Yes .4mg QD Take 0.[address] [facility] (FLOMAX) 1-30 [facility] 0.4 mg Cap 00:00: mouth [facility] 24 hr 00 daily. [place] capsule atorvastati 2019-04 Yes 40mg QD Take [address] [facility] (LIPITOR) 1-30 by [facility] 40 MG 00:00: daily. Medical tablet 00 [place] carvediloL 2019-04 Yes 6.25mg Q.5D Take 6.[address] [facility] (COREG) 1-30 [facility] 6.25 MG 00:00: mouth 2 Medical tablet 00 (two) Center times daily. lisinopriL 2019-04 Yes 20mg QD Take [address] [facility] (PRINIVIL,Z 1-30 by [facility] ESTRIL) 20 00:00: daily. Medic al MG tablet 00 [place] tamsulosin 2019-04 Yes .4mg QD Take 0.[address] [facility] (FLOMAX) 1-30 [facility] 0.4 mg Cap 00:00: mouth Med[facility] 24 hr 00 daily. [place] capsule atorvastati 2019-04 Yes 40mg QD Take [address] [facility] (LIPITOR) 1-30 by [facility] 40 MG 00:00: daily. Medical tablet 00 [place] carvediloL 2019-04 Yes 6.25mg Q.5D Take 6.[address] [facility] (COREG) 1-30 [facility] 6.25 MG 00:00: mouth 2 Medical tablet 00 (two) Center times daily. lisinopriL 2019-04 Yes 20mg QD Take [address] [facility] (PRINIVIL,Z 1-30 by [facility] ESTRIL) 20 00:00: daily. Medic al MG tablet 00 [place] tamsulosin 2019-04 Yes .4mg QD Take 0.[address] [facility] (FLOMAX) 1-30 [facility] 0.4 mg Cap 00:00: mouth Medica [facility] 24 hr 00 daily. [place] capsule carvediloL 2019-04 Yes [id number] 6.25mg Take 1 [facility] 6.25 mg 1-30 tablet by [facility] of tablet 00:00: mouth 2 [place] 00 (two) Medical times Branch daily with meals. atorvastati 2019-04 Yes [id number] 40mg Take 1 [facility] n (LIPITOR) 1-30 tablet by [facility] of 40 mg 00:00: mouth at [place] tablet 00 bedtime. Medical Branch carvediloL 2019- Yes [id number] 6.25mg Take 1 [facility] 6.25 mg 1-30 tablet by [facility] of tablet 00:00: mouth 2 (two) Medical times Branch daily with meals. atorvastati 2019-04 Yes [id number] 40mg Take 1 [facility] n (LIPITOR) 1-30 tablet by [facility] of 40 mg 00:00: mouth at [place] tablet 00 bedtime. Medical Branch carvediloL 2019-04 Yes [id number] 6.25mg Take 1 [facility] 6.25 mg 1-30 tablet by [facility] of tablet 00:00: mouth 2 (two) Medical times Branch daily with meals. atorvastati 2019-04 Yes [id number] 40mg Take 1 [facility] n (LIPITOR) 1-30 tablet by [facility] 40 mg 00:00: mouth at [place] tablet 00 bedtime. Medical Branch carvediloL 2019-04 Yes [id number] 6.25mg Take 1 [facility] 6.25 mg 1-30 tablet by [facility] of tablet 00:00: mouth 2 (two) Medical times Branch daily with meals. atorvastati 2019-04 Yes [id number] 40mg Take 1 [facility] n (LIPITOR) 1-30 tablet by [facility] 40 mg 00:00: mouth at [place] tablet 00 bedtime. Medical Branch carvediloL 2019-04 Yes [id number] 6.25mg Take 1 [facility] 6.25 mg 1-30 tablet by [facility] of tablet 00:00: mouth 2 [place] (two) Medical times Branch daily with meals. atorvastati 2019-04 Yes [id number] 40mg Take 1 [facility] n (LIPITOR) 1-30 tablet by [facility] 40 mg 00:00: mouth at [place] tablet 00 bedtime. Medical Branch carvediloL 2019-04 Yes [id number] 6.25mg Take 1 [facility] 6.25 mg 1-30 tablet by [facility] of tablet 00:00: mouth 2 [place] (two) Medical times Branch daily with meals. atorvastati 2019-04 Yes [id number] 40mg Take 1 [facility] n (LIPITOR) 1-30 tablet by [facility] 40 mg 00:00: mouth at [place] tablet 00 bedtime. Medical Branch carvediloL 2019-04 Yes [id number] 6.25mg Take 1 [facility] 6.25 mg 1-30 tablet by [facility] tablet 00:00: mouth 2 (two) Medical times Branch daily with meals. lisinopriL 2019- Yes [id number] 20mg Take 1 [facility] 20 mg 1-30 tablet by [facility] tablet 00:00: mouth [place] 00 daily. [facility] tamsulosin 2019-04 Yes [id number] .4mg Take 1 [facility] 0.4 mg 24 1-30 capsule by [facility] hr capsule 00:00: mouth [place] 00 daily. [facility] amLODIPine 2019-04 Yes [id number] 5mg Take 1 [facility] 5 mg tablet 1-30 tablet by [facility] 00:00: mouth [place] 00 daily. [facility] atorvastati 2019-04 Yes [id number] 40mg Take 1 [facility] n (LIPITOR) 1-30 tablet by [facility] 40 mg 00:00: mouth at [place] tablet 00 bedtime. [facility] carvediloL 2019-04 Yes [id number] 6.25mg Take 1 [facility] 6.25 mg 1-30 tablet by [facility] tablet 00:00: mouth 2 (two) Medical times Branch daily with meals. lisinopriL 2019-04 Yes [id number] 20mg Take 1 [facility] 20 mg 1-30 tablet by [facility] tablet 00:00: mouth [place] 00 daily. [facility] tamsulosin 2019-04 Yes [id number] .4mg Take 1 [facility] 0.4 mg 24 1-30 capsule by [facility] of hr capsule 00:00: mouth [place] 00 daily. [facility] amLODIPine 2019-04 Yes [id number] 5mg Take 1 [facility] 5 mg tablet 1-30 tablet by [facility] of 00:00: mouth [place] 00 daily. [facility] Branch atorvastati 2019- Yes [id number] 40mg Take 1 [facility] n (LIPITOR) 1-30 tablet by [facility] 40 mg 00:00: mouth at [place] tablet 00 bedtime. [facility] carvediloL 2019- Yes [id number] 6.25mg Take 1 [facility] 6.25 mg 1-30 tablet by [facility] tablet 00:00: mouth 2 [place] 00 (two) Medical times Branch daily with meals. lisinopriL 2019- Yes [id number] 20mg Take 1 [facility] 20 mg 1-30 tablet by [facility] tablet 00:00: mouth [place] 00 daily. [facility] tamsulosin 2019- Yes [id number] .4mg Take 1 [facility] 0.4 mg 24 1-30 capsule by [facility] hr capsule 00:00: mouth [place] 00 daily. [facility] amLODIPine 2019- Yes [id number] 5mg Take 1 [facility] 5 mg tablet 1-30 tablet by [facility] 00:00: mouth [place] 00 daily. [facility] atorvastati 2019- Yes [id number] 40mg Take 1 [facility] n (LIPITOR) 1-30 tablet by [facility] 40 mg 00:00: mouth at [place] tablet 00 bedtime. [facility] carvediloL 2019-04 Yes [id number] 6.25mg Take 1 [facility] 6.25 mg 1-30 tablet by [facility] tablet 00:00: mouth 2 [place] 00 (two) Medical times Branch daily with meals. lisinopriL 2019-04 Yes [id number] 20mg Take 1 [facility] 20 mg 1-30 tablet by [facility] tablet 00:00: mouth [place] 00 daily. [facility] tamsulosin 2019-04 Yes [id number] .4mg Take 1 [facility] 0.4 mg 24 1-30 capsule by [facility] of hr capsule 00:00: mouth [place] 00 daily. [facility] amLODIPine 2019-04 Yes [id number] 5mg Take 1 [facility] 5 mg tablet 1-30 tablet by [facility] of 00:00: mouth [place] 00 daily. [facility] atorvastati 2019- Yes [id number] 40mg Take 1 [facility] n (LIPITOR) 1-30 tablet by [facility] 40 mg 00:00: mouth at [place] tablet 00 bedtime. [facility] carvediloL 2019- Yes [id number] 6.25mg Take 1 [facility] 6.25 mg 1-30 tablet by [facility] tablet 00:00: mouth 2 [place] 00 (two) Medical times Branch daily with meals. lisinopriL 2019- Yes [id number] 20mg Take 1 [facility] 20 mg 1-30 tablet by [facility] tablet 00:00: mouth [place] 00 daily. [facility] tamsulosin 2019-04 Yes [id number] .4mg Take 1 [facility] 0.4 mg 24 1-30 capsule by [facility] of hr capsule 00:00: mouth [place] 00 daily. [facility] amLODIPine 2019- Yes [id number] 5mg Take 1 [facility] 5 mg tablet 1-30 tablet by [facility] of 00:00: mouth [place] 00 daily. [facility] atorvastati 2019-04 Yes [id number] 40mg Take 1 [facility] n (LIPITOR) 1-30 tablet by [facility] 40 mg 00:00: mouth at [place] tablet 00 bedtime. Medical [facility] carvediloL 2019-04 Yes [id number] 6.25mg Take 1 [facility] 6.25 mg 1-30 tablet by [facility] of tablet 00:00: mouth 2 [place] 00 (two) Medical times Branch daily with meals. lisinopriL 2019-04 Yes [id number] 20mg Take 1 [facility] 20 mg 1-30 tablet by [facility] tablet 00:00: mouth [place] 00 daily. [facility] tamsulosin 2019-04 Yes [id number] .4mg Take 1 [facility] 0.4 mg 24 1-30 capsule by [facility] hr capsule 00:00: mouth [place] 00 daily. [facility] amLODIPine 2019-04 Yes [id number] 5mg Take 1 [facility] 5 mg tablet 1-30 tablet by [facility] of 00:00: mouth [place] 00 daily. [facility] atorvastati 2019-04 Yes [id number] 40mg Take 1 [facility] n (LIPITOR) 1-30 tablet by [facility] of 40 mg 00:00: mouth at [place] tablet 00 bedtime. [facility] carvediloL 2019-04 Yes [id number] 6.25mg Take 1 [facility] 6.25 mg 1-30 tablet by [facility] of tablet 00:00: mouth 2 (two) Medical times Branch daily with meals. lisinopriL 2019-04 Yes [id number] 20mg Take 1 [facility] 20 mg 1-30 tablet by [facility] of tablet 00:00: mouth [place] 00 daily. [facility] Branch tamsulosin 2019-04 Yes [id number] .4mg Take 1 [facility] 0.4 mg 24 1-30 capsule by [facility] hr capsule 00:00: mouth [place] 00 daily. [facility] amLODIPine 2019-04 Yes [id number] 5mg Take 1 [facility] 5 mg tablet 1-30 tablet by [facility] of 00:00: mouth [place] 00 daily. [facility] Branch atorvastati 2019-04 Yes [id number] 40mg Take 1 [facility] n (LIPITOR) 1-30 tablet by [facility] 40 mg 00:00: mouth at [place] tablet 00 bedtime. [facility] carvediloL 2019- Yes [id number] 6.25mg Take 1 [facility] 6.25 mg 1-30 tablet by [facility] of tablet 00:00: mouth 2 [place] (two) Medical times Branch daily with meals. lisinopriL 2019-04 Yes [id number] 20mg Take 1 [facility] 20 mg 1-30 tablet by [facility] tablet 00:00: mouth [place] 00 daily. [facility] tamsulosin 2019-04 Yes [id number] .4mg Take 1 [facility] 0.4 mg 24 1-30 capsule by [facility] hr capsule 00:00: mouth [place] 00 daily. [facility] amLODIPine 2019-04 Yes [id number] 5mg Take 1 [facility] 5 mg tablet 1-30 tablet by [facility] of 00:00: mouth [place] 00 daily. [facility] atorvastati 2019-04 Yes [id number] 40mg Take 1 [facility] n (LIPITOR) 1-30 tablet by [facility] 40 mg 00:00: mouth at [place] tablet 00 bedtime. [facility] carvediloL 2019-04 Yes [id number] 6.25mg Take 1 [facility] 6.25 mg 1-30 tablet by [facility] tablet 00:00: mouth 2 (two) Medical times Branch daily with meals. lisinopriL 2019-04 Yes [id number] 20mg Take 1 [facility] 20 mg 1-30 tablet by [facility] tablet 00:00: mouth [place] 00 daily. [facility] tamsulosin 2019-04 Yes [id number] .4mg Take 1 [facility] 0.4 mg 24 1-30 capsule by [facility] hr capsule 00:00: mouth [place] 00 daily. [facility] amLODIPine 2019-04 Yes [id number] 5mg Take 1 [facility] 5 mg tablet 1-30 tablet by [facility] of 00:00: mouth [place] 00 daily. [facility] atorvastati 2019- Yes [id number] 40mg Take 1 [facility] n (LIPITOR) 1-30 tablet by [facility] 40 mg 00:00: mouth at [place] tablet 00 bedtime. [facility] carvediloL 2019-04 Yes [id number] 6.25mg Take 1 [facility] 6.25 mg 1-30 tablet by [facility] of tablet 00:00: mouth 2 [place] 00 (two) Medical times Branch daily with meals. lisinopriL 2019- Yes [id number] 20mg Take 1 [facility] 20 mg 1-30 tablet by [facility] tablet 00:00: mouth [place] 00 daily. [facility] tamsulosin 2019-04 Yes [id number] .4mg Take 1 [facility] 0.4 mg 24 1-30 capsule by [facility] hr capsule 00:00: mouth [place] 00 daily. [facility] amLODIPine 2019-04 Yes [id number] 5mg Take 1 [facility] 5 mg tablet 1-30 tablet by [facility] of 00:00: mouth [place] 00 daily. [facility] atorvastati 2019-04 Yes [id number] 40mg Take 1 [facility] n (LIPITOR) 1-30 tablet by [facility] 40 mg 00:00: mouth at [place] tablet 00 bedtime. [facility] carvediloL 2019-04 Yes [id number] 6.25mg Take 1 [facility] 6.25 mg 1-30 tablet by [facility] of tablet 00:00: mouth 2 [place] 00 (two) Medical times Branch daily with meals. lisinopriL 2019-04 Yes [id number] 20mg Take 1 [facility] 20 mg 1-30 tablet by [facility] tablet 00:00: mouth [place] 00 daily. [facility] tamsulosin 2019-04 Yes [id number] .4mg Take 1 [facility] 0.4 mg 24 1-30 capsule by [facility] of hr capsule 00:00: mouth [place] 00 daily. [facility] carvediloL 2019-04 Yes [id number] 6.25mg Take 1 [facility] 6.25 mg 1-30 tablet by [facility] tablet 00:00: mouth 2 00 (two) Medical times Branch daily with meals. lisinopriL 2019-04 Yes [id number] 20mg Take 1 [facility] 20 mg 1-30 tablet by [facility] tablet 00:00: mouth [place] 00 daily. [facility] Branch tamsulosin 2019-04 Yes [id number] .4mg Take 1 [facility] 0.4 mg 24 1-30 capsule by [facility] hr capsule 00:00: mouth [place] 00 daily. [facility] amLODIPine 2019-04 Yes [id number] 5mg Take 1 [facility] 5 mg tablet 1-30 tablet by [facility] 00:00: mouth [place] 00 daily. [facility] atorvastati 2019-04 Yes [id number] 40mg Take 1 [facility] ([facility]) 1-30 tablet by [facility] 40 mg 00:00: mouth at [place] tablet 00 bedtime. [facility] atorvastati Yes [id number] 40mg Take 1 [facility] (LIP[facility]) 1-30 tablet by [facility] 40 mg 00:00: mouth at [place] tablet 00 bedtime. [facility] carvediloL 2019- Yes [id number] 6.25mg Take 1 [facility] 6.25 mg 1-30 tablet by [facility] tablet 00:00: mouth 2 [place] 00 (two) Medical times [facility] daily with meals. lisinopriL 2019-04 Yes [id number] 20mg Take 1 [facility] 20 mg 1-30 tablet by [facility] tablet 00:00: mouth [place] 00 daily. [facility] tamsulosin 2019-04 Yes [id number] .4mg Take 1 [facility] 0.4 mg 24 1-30 capsule by [facility] hr capsule 00:00: mouth [place] 00 daily. [facility] amLODIPine 2019-04 Yes [id number] 5mg Take 1 [facility] 5 mg tablet 1-30 tablet by [facility] 00:00: mouth [place] 00 daily. [facility] atorvastati 2019-04 Yes [id number] 40mg Take 1 [facility] (LIPITOR) 1-30 tablet by [facility] 40 mg 00:00: mouth at [place] tablet 00 bedtime. [facility] carvediloL 2019-04 Yes [id number] 6.25mg Take 1 [facility] 6.25 mg 1-30 tablet by [facility] tablet 00:00: mouth 2 (two) Medical times [facility] daily with meals. lisinopriL 2019-04 Yes [id number] 20mg Take 1 [facility] 20 mg 1-30 tablet by [facility] tablet 00:00: mouth [place] 00 daily. [facility] tamsulosin 2019-04 Yes [id number] .4mg Take 1 [facility] 0.4 mg 24 1-30 capsule by [facility] hr capsule 00:00: mouth [place] 00 daily. [facility] amLODIPine 2019-04 Yes [id number] 5mg Take 1 [facility] 5 mg tablet 1-30 tablet by [facility] 00:00: mouth [place] 00 daily. [facility] atorvastati 2019-04 Yes [id number] 40mg Take 1 [facility] (LIPITOR) 1-30 tablet by [facility] 40 mg 00:00: mouth at [place] tablet 00 bedtime. [facility] carvediloL 2019- Yes [id number] 6.25mg Take 1 [facility] 6.25 mg 1-30 tablet by [facility] tablet 00:00: mouth 2 (two) Medical times [facility] daily with meals. lisinopriL 2019-04 Yes [id number] 20mg Take 1 [facility] 20 mg 1-30 tablet by [facility] tablet 00:00: mouth [place] 00 daily. [facility] tamsulosin 2019-04 Yes [id number] .4mg Take 1 [facility] 0.4 mg 24 1-30 capsule by [facility] hr capsule 00:00: mouth [place] 00 daily. [facility] atorvastati 2019-04 Yes [id number] 40mg Take 1 [facility] (LIPITOR) 1-30 tablet by [facility] 40 mg 00:00: mouth at [place] tablet 00 bedtime. [facility] carvediloL 2019-04 Yes [id number] 6.25mg Take 1 [facility] 6.25 mg 1-30 tablet by [facility] tablet 00:00: mouth 2 (two) Medical times [facility] daily with meals. lisinopriL 2019-04 Yes [id number] 20mg Take 1 [facility] 20 mg 1-30 tablet by [facility] tablet 00:00: mouth [place] 00 daily. [facility] tamsulosin 2019-04 Yes [id number] .4mg Take 1 [facility] 0.4 mg 24 1-30 capsule by [facility] hr capsule 00:00: mouth [place] 00 daily. [facility] atorvastati 2019-04 Yes [id number] 40mg Take 1 [facility] (LIPITOR) 1-30 tablet by [facility] 40 mg 00:00: mouth at [place] tablet 00 bedtime. [facility] carvediloL 2019-04 Yes [id number] 6.25mg Take 1 [facility] 6.25 mg 1-30 tablet by [facility] tablet 00:00: mouth 2 (two) Medical times [facility] daily with meals. lisinopriL 2019-04 Yes [id number] 20mg Take 1 [facility] 20 mg 1-30 tablet by [facility] tablet 00:00: mouth [place] 00 daily. [facility] tamsulosin 2019-04 Yes [id number] .4mg Take 1 [facility] 0.4 mg 24 1-30 capsule by [facility] hr capsule 00:00: mouth [place] 00 daily. [facility] atorvastati 2019-04 Yes [id number] 40mg Take 1 [facility] (LIPITOR) 1-30 tablet by [facility] 40 mg 00:00: mouth at [place] tablet 00 bedtime. [facility] carvediloL 2019-04 Yes [id number] 6.25mg Take 1 [facility] 6.25 mg 1-30 tablet by [facility] tablet 00:00: mouth 2 (two) Medical times [facility] daily with meals. lisinopriL 2019-04 Yes [id number] 20mg Take 1 [facility] 20 mg 1-30 tablet by [facility] tablet 00:00: mouth [place] 00 daily. [facility] tamsulosin 2019-04 Yes [id number] .4mg Take 1 [facility] 0.4 mg 24 1-30 capsule by [facility] hr capsule 00:00: mouth [place] 00 daily. [facility] atorvastati 2019-04 Yes [id number] 40mg Take 1 [facility] (LIPITOR) 1-30 tablet by [facility] 40 mg 00:00: mouth at [place] tablet 00 bedtime. [facility] carvediloL 2019-04 Yes [id number] 6.25mg Take 1 [facility] 6.25 mg 1-30 tablet by [facility] tablet 00:00: mouth 2 (two) Medical times [facility] daily with meals. lisinopriL 2019-04 Yes [id number] 20mg Take 1 [facility] 20 mg 1-30 tablet by [facility] tablet 00:00: mouth [place] 00 daily. [facility] tamsulosin 2019-04 Yes [id number] .4mg Take 1 [facility] 0.4 mg 24 1-30 capsule by [facility] hr capsule 00:00: mouth [place] 00 daily. [facility] atorvastati 2019-04 Yes [id number] 40mg Take 1 [facility] (LIPITOR) 1-30 tablet by [facility] 40 mg 00:00: mouth at [place] tablet 00 bedtime. [facility] carvediloL 2019-04 Yes [id number] 6.25mg Take 1 [facility] 6.25 mg 1-30 tablet by [facility] tablet 00:00: mouth 2 (two) [facility] times [facility] daily with meals. lisinopriL 2019-04 Yes [id number] 20mg Take 1 [facility] 20 mg 1-30 tablet by [facility] tablet 00:00: mouth [place] 00 daily. [facility] tamsulosin 2019-04 Yes [id number] .4mg Take 1 [facility] 0.4 mg 24 1-30 capsule by [facility] hr capsule 00:00: mouth [place] 00 daily. [facility] atorvastati 2019-04 Yes [id number] 40mg Take 1 [facility] (LIPITOR) 1-30 tablet by [facility] 40 mg 00:00: mouth at [place] tablet 00 bedtime. [facility] carvediloL 2019-04 Yes [id number] 6.25mg Take 1 [facility] 6.25 mg 1-30 tablet by [facility] tablet 00:00: mouth 2 [place] 00 (two) Medical times [facility] daily with meals. lisinopriL 2019-04 Yes [id number] 20mg Take 1 [facility] 20 mg 1-30 tablet by [facility] tablet 00:00: mouth [place] 00 daily. [facility] tamsulosin 2019-04 Yes [id number] .4mg Take 1 [facility] 0.4 mg 24 1-30 capsule by [facility] hr capsule 00:00: mouth [place] 00 daily. [facility] atorvastati 2019-04 Yes [id number] 40mg Take 1 [facility] (LIPITOR) 1-30 tablet by [facility] 40 mg 00:00: mouth at [place] tablet 00 bedtime. [facility] carvediloL 2019-04 Yes [id number] 6.25mg Take 1 [facility] 6.25 mg 1-30 tablet by [facility] tablet 00:00: mouth 2 00 (two) Medical times [facility] daily with meals. lisinopriL 2019-04 Yes [id number] 20mg Take 1 [facility] 20 mg 1-30 tablet by [facility] tablet 00:00: mouth [place] 00 daily. [facility] tamsulosin 2019-04 Yes [id number] .4mg Take 1 [facility] 0.4 mg 24 1-30 capsule by [facility] hr capsule 00:00: mouth [place] 00 daily. [facility] atorvastati 2019-04 Yes [id number] 40mg Take 1 [facility] (LIPITOR) 1-30 tablet by [facility] 40 mg 00:00: mouth at [place] tablet 00 bedtime. [facility] carvediloL 2019-04 Yes [id number] 6.25mg Take 1 [facility] 6.25 mg 1-30 tablet by [facility] tablet 00:00: mouth 2 [place] 00 (two) Medical times [facility] daily with meals. lisinopriL 2019-04 Yes [id number] 20mg Take 1 [facility] 20 mg 1-30 tablet by [facility] tablet 00:00: mouth [place] 00 daily. [facility] tamsulosin 2019-04 Yes [id number] .4mg Take 1 [facility] 0.4 mg 24 1-30 capsule by [facility] hr capsule 00:00: mouth [place] 00 daily. [facility] atorvastati 2019- Yes [id number] 40mg Take 1 [facility] (LIPITOR) 1-30 tablet by [facility] 40 mg 00:00: mouth at [place] tablet 00 bedtime. [facility] carvediloL 2019- Yes [id number] 6.25mg Take 1 [facility] 6.25 mg 1-30 tablet by [facility] tablet 00:00: mouth 2 [place] 00 (two) Medical times [facility] daily with meals. tamsulosin 2019-04 Yes [id number] .4mg Take 1 [facility] 0.4 mg 24 1-30 capsule by [facility] hr capsule 00:00: mouth [place] 00 daily. [facility] atorvastati 2019-04 Yes [id number] 40mg Take 1 [facility] (LIPITOR) 1-30 tablet by [facility] 40 mg 00:00: mouth at [place] tablet 00 bedtime. [facility] carvediloL 2019-04 Yes [id number] 6.25mg Take 1 [facility] 6.25 mg 1-30 tablet by [facility] tablet 00:00: mouth 2 00 (two) Medical times [facility] daily with meals. tamsulosin 2019-04 Yes [id number] .4mg Take 1 [facility] 0.4 mg 24 1-30 capsule by [facility] hr capsule 00:00: mouth [place] 00 daily. [facility] atorvastati 2019-04 Yes [id number] 40mg Take 1 [facility] (LIPITOR) 1-30 tablet by [facility] 40 mg 00:00: mouth at [place] tablet 00 bedtime. [facility] carvediloL 2019-04 Yes [id number] 6.25mg Take 1 [facility] 6.25 mg 1-30 tablet by [facility] tablet 00:00: mouth 2 [place] 00 (two) Medical times [facility] daily with meals. tamsulosin 2019-04 Yes [id number] .4mg Take 1 [facility] 0.4 mg 24 1-30 capsule by [facility] hr capsule 00:00: mouth [place] 00 daily. [facility] atorvastati 2019-04 Yes [id number] 40mg Take 1 [facility] (LIPITOR) 1-30 tablet by [facility] 40 mg 00:00: mouth at [place] tablet 00 bedtime. [facility] carvediloL 2019-04 Yes [id number] 6.25mg Take 1 [facility] 6.25 mg 1-30 tablet by [facility] tablet 00:00: mouth 2 (two) Medical times [facility] daily with meals. tamsulosin 2019-04 Yes [id number] .4mg Take 1 [facility] 0.4 mg 24 1-30 capsule by [facility] hr capsule 00:00: mouth [place] 00 daily. [facility] atorvastati 2019-04 Yes [id number] 40mg Take 1 [facility] (LIPITOR) 1-30 tablet by [facility] 40 mg 00:00: mouth at [place] tablet 00 bedtime. [facility] carvediloL 2019-04 Yes [id number] 6.25mg Take 1 [facility] 6.25 mg 1-30 tablet by [facility] tablet 00:00: mouth 2 (two) Medical times [facility] daily with meals. tamsulosin 2019-04 Yes [id number] .4mg Take 1 [facility] 0.4 mg 24 1-30 capsule by [facility] hr capsule 00:00: mouth [place] 00 daily. [facility] atorvastati 2019-04 Yes [id number] 40mg Take 1 [facility] (LIPITOR) 1-30 tablet by [facility] 40 mg 00:00: mouth at [place] tablet 00 bedtime. [facility] carvediloL 2019-04 Yes [id number] 6.25mg Take 1 [facility] 6.25 mg 1-30 tablet by [facility] tablet 00:00: mouth 2 (two) Medical times [facility] daily with meals. tamsulosin 2019-04 Yes [id number] .4mg Take 1 [facility] 0.4 mg 24 1-30 capsule by [facility] hr capsule 00:00: mouth [place] 00 daily. [facility] atorvastati 2019-04 Yes [id number] 40mg Take 1 [facility] (LIPITOR) 1-30 tablet by [facility] 40 mg 00:00: mouth at [place] tablet 00 bedtime. [facility] carvediloL 2019-04 Yes [id number] 6.25mg Take 1 [facility] 6.25 mg 1-30 tablet by [facility] tablet 00:00: mouth 2 (two) Medical times [facility] daily with meals. atorvastati 2019-04 Yes [id number] 40mg Take 1 [facility] (LIPITOR) 1-30 tablet by [facility] 40 mg 00:00: mouth at [place] tablet 00 bedtime. [facility] carvediloL 2019-04 Yes [id number] 6.25mg Take 1 [facility] 6.25 mg 1-30 tablet by [facility] tablet 00:00: mouth 2 [place] 00 (two) Medical times [facility] daily with meals. atorvastati 2019-04 Yes [id number] 40mg Take 1 [facility] (LIPITOR) 1-30 tablet by [facility] 40 mg 00:00: mouth at [place] tablet 00 bedtime. [facility] carvediloL 2019-04 Yes [id number] 6.25mg Take 1 [facility] 6.25 mg 1-30 tablet by [facility] tablet 00:00: mouth 2 [place] 00 (two) Medical times [facility] daily with meals. atorvastati 2019-04 Yes [id number] 40mg Take 1 [facility] n (LIPITOR) 1-30 tablet by [facility] 40 mg 00:00: mouth at [place] tablet 00 bedtime. [facility] carvediloL 2019-04- No [id number] 6.25mg Take 1 [facility] 6.25 mg 1-30 07-14 tablet by [facility] tablet 00:00: 00:00 mouth 2 [place] 00 :00 (two) Medical times [facility] daily with meals. atorvastati 2019-04- No [id number] 40mg Take 1 [facility] (LIPITOR) 1-30 07-14 tablet by [facility] y of 40 mg 00:00: 00:00 mouth at [place] tablet 00 :00 bedtime. [facility] carvediloL 2019-04- No [id number] 6.25mg Take 1 [facility] 6.25 mg 1-30 07-14 tablet by [facility] tablet 00:00: 00:00 mouth 2 [place] 00 :00 (two) Medical times [facility] daily with meals. atorvastati 2019-04- No [id number] 40mg Take 1 [facility] (LIPITOR) 1-30 07-14 tablet by [facility] y of 40 mg 00:00: 00:00 mouth at [place] tablet 00 :00 bedtime. [facility] tamsulosin 2019-04- No [id number] .4mg Take 1 [facility] 0.4 mg 24 1-30 10-31 capsule by [facility] hr capsule 00:00: 00:00 mouth [place] 00 :00 daily. [facility] tamsulosin 2019-04- No [id number] .4mg Take 1 [facility] 0.4 mg 24 -30 -31 capsule by [facility] hr capsule 00:00: 00:00 mouth [place] 00 :00 daily. [facility] tamsulosin 2019-04- No [id number] .4mg Take 1 [facility] 0.4 mg 24 -30 10-31 capsule by [facility] hr capsule 00:00: 00:00 mouth [place] 00 :00 daily. [facility] tamsulosin 2019-04- No [id number] .4mg Take 1 [facility] 0.4 mg 24 05-03- capsule by [facility] hr capsule 00:00: 00:00 mouth [place] 00 :00 daily. [facility] lisinopriL 2019-04- No [id number] 20mg Take 1 [facility] 20 mg 30 - tablet by [facility] tablet 00:00: 00:00 mouth [place] 00 :00 daily. [facility] amLODIPine 2019-04- No [id number] 5mg Take 1 [facility] 5 mg tablet 05-03 tablet by [facility] y of 00:00: 00:00 mouth [place] 00 :00 daily. [facility] amLODIPine 2019-04- No [id number] 5mg Take 1 [facility] 5 mg tablet 05-03 tablet by [facility] y of 00:00: 00:00 mouth [place] 00 :00 daily. [facility] carvediloL 2019-04 Yes [id number] 6.25mg Take 1 [facility] 6.25 mg 0-23 tablet by [facility] tablet 00:00: mouth 2 [place] 00 (two) Medical times [facility] daily with meals. lisinopriL 2019-04 Yes [id number] 20mg Take 1 [facility] 20 mg 0-23 tablet by [facility] tablet 00:00: mouth [place] 00 daily. [facility] carvediloL 2019-04- No [id number] 6.25mg Take 1 [facility] 6.25 mg 0-23 11-30 tablet by [facility] tablet 00:00: 00:00 mouth 2 [place] 00 :00 (two) Medical times [facility] daily with meals. lisinopriL 2019-04- No [id number] 20mg Take 1 [facility] 20 mg 0-23 11-30 tablet by [facility] tablet 00:00: 00:00 mouth [place] 00 :00 daily. [facility] carvediloL 2019-04- No [id number] 6.25mg Take 1 [facility] 6.25 mg 0-23 11-30 tablet by [facility] tablet 00:00: 00:00 mouth 2 [place] 00 :00 (two) Medical times [facility] daily with meals. lisinopriL 2019-04- No [id number] 20mg Take 1 [facility] 20 mg 0-23 11-30 tablet by [facility] tablet 00:00: 00:00 mouth [place] 00 :00 daily. [facility] carvediloL 2019-04- No [id number] 6.25mg Take 1 [facility] 6.25 mg 0-23 11-30 tablet by [facility] tablet 00:00: 00:00 mouth 2 [place] 00 :00 (two) Medical times [facility] daily with meals. lisinopriL 2019-04- No [id number] 20mg Take 1 [facility] 20 mg 0-23 11-30 tablet by [facility] tablet 00:00: 00:00 mouth [place] 00 :00 daily. [facility] TAMSULOSIN 2019-0 Yes [id number] Take 1 [facility] 0.4 mg 24 9-22 capsule by [facility] hr capsule 00:00: mouth once [place] 00 daily [facility] TAMSULOSIN 2019-0 Yes [id number] Take 1 [facility] 0.4 mg 24 9-22 capsule by [facility] hr capsule 00:00: mouth once [place] 00 daily [facility] TAMSULOSIN 2020-0 Yes [id number] Take 1 [facility] 0.4 mg 24 9-22 capsule by [facility] hr capsule 00:00: mouth once [place] 00 daily [facility] TAMSULOSIN 2020-0 Yes [id number] Take 1 [facility] 0.4 mg 24 9-22 capsule by [facility] hr capsule 00:00: mouth once [place] 00 daily [facility] TAMSULOSIN 2019-0 2020- No [id number] Take 1 [facility] 0.4 mg 24 9-22 11-30 capsule by [facility] hr capsule 00:00: 00:00 mouth once [place] 00 :00 daily [facility] TAMSULOSIN 2020-0 2020- No [id number] Take 1 [facility] 0.4 mg 24 9-22 11-30 capsule by [facility] hr capsule 00:00: 00:00 mouth once [place] 00 :00 daily [facility] TAMSULOSIN 2019-0 2020- No [id number] Take 1 [facility] 0.4 mg 24 9-22 11-30 capsule by [facility] hr capsule 00:00: 00:00 mouth once [place] 00 :00 daily [facility] amLODIPine 2020-0 Yes [id number] 5mg Take 1 [facility] 5 mg tablet 8-31 tablet by [facility] 00:00: mouth [place] 00 daily. [facility] carvediloL 2020-0 Yes [id number] 6.25mg Take 1 [facility] 6.25 mg 8-31 tablet by [facility] tablet 00:00: mouth 2 (two) Medical times [facility] daily with meals. amLODIPine 2020-0 Yes [id number] 5mg Take 1 [facility] 5 mg tablet 8-31 tablet by [facility] 00:00: mouth 00 daily. [facility] carvediloL 2020-0 Yes [id number] 6.25mg Take 1 [facility] 6.25 mg 8-31 tablet by [facility] tablet 00:00: mouth 2 (two) Medical times [facility] daily with meals. amLODIPine 2020-0 Yes [id number] 5mg Take 1 [facility] 5 mg tablet 8-31 tablet by [facility] 00:00: mouth 00 daily. [facility] carvediloL 2020-0 Yes [id number] 6.25mg Take 1 [facility] 6.25 mg 8-31 tablet by [facility] tablet 00:00: mouth 2 (two) Medical times [facility] daily with meals. amLODIPine 2020-0 Yes [id number] 5mg Take 1 [facility] 5 mg tablet 8-31 tablet by [facility] 00:00: mouth [place] 00 daily. [facility] carvediloL 2020-0 Yes [id number] 6.25mg Take 1 [facility] 6.25 mg 8-31 tablet by [facility] tablet 00:00: mouth 2 (two) Medical times [facility] daily with meals. amLODIPine 2020-0 Yes [id number] 5mg Take 1 [facility] 5 mg tablet 8-31 tablet by [facility] 00:00: mouth [place] 00 daily. [facility] amLODIPine 2020-0 2020- No [id number] 5mg Take 1 [facility] 5 mg tablet 8-31 11-30 tablet by it y of 00:00: 00:00 mouth [place] 00 :00 daily. [facility] amLODIPine 2020-0 2020- No [id number] 5mg Take 1 [facility] 5 mg tablet 8-31 11-30 tablet by [facility] y of 00:00: 00:00 mouth [place] 00 :00 daily. [facility] amLODIPine 2020-0 2020- No [id number] 5mg Take 1 [facility] 5 mg tablet 8 11-30 tablet by [facility] y of 00:00: 00:00 mouth [place] 00 :00 daily. [facility] carvediloL 2020-0 2020- No [id number] 6.25mg Take 1 [facility] 6.25 mg 8-31 10-23 tablet by [facility] tablet 00:00: 00:00 mouth 2 [place] 00 :00 (two) Medical times [facility] daily with meals. carvediloL 2020-0 Yes [id number] 6.25mg Take 1 [facility] 6.25 mg 4-07 tablet by [facility] tablet 00:00: mouth 2 [place] 00 (two) Medical times [facility] daily with meals. amLODIPine 2019-0 Yes [id number] 5mg Take 1 [facility] 5 mg tablet 4-07 tablet by [facility] 00:00: mouth [place] 00 daily. [facility] lisinopril 2019-0 Yes [id number] 20mg Take 1 [facility] 20 mg 4-07 tablet by [facility] tablet 00:00: mouth [place] 00 daily. [facility] atorvastati 2019-0 Yes [id number] 40mg Take 1 [facility] n (LIPITOR) 4-07 tablet by [facility] 40 mg 00:00: mouth at [place] tablet 00 bedtime. [facility] tamsulosin 2019-0 Yes [id number] .4mg Take 1 [facility] 0.4 mg 24 4-07 capsule by [facility] hr capsule 00:00: mouth [place] 00 daily. [facility] tiZANidine 2019-0 Yes [id number] 4mg Take 1 [facility] 4 mg tablet 4-07 tablet by [facility] 00:00: mouth [place] 00 every 8 Medical (eight) Branch hours as needed (muscle pain or spasm). carvediloL 2019-0 Yes [id number] 6.25mg Take 1 [facility] 6.25 mg 4-07 tablet by [facility] tablet 00:00: mouth 2 [place] 00 (two) Medical times [facility] daily with meals. amLODIPine 2020-0 Yes [id number] 5mg Take 1 [facility] 5 mg tablet 4-07 tablet by [facility] 00:00: mouth [place] 00 daily. [facility] lisinopril 2019-0 Yes [id number] 20mg Take 1 [facility] 20 mg 4-07 tablet by [facility] tablet 00:00: mouth [place] 00 daily. [facility] atorvastati 2019-0 Yes [id number] 40mg Take 1 [facility] n (LIPITOR) 4-07 tablet by [facility] 40 mg 00:00: mouth at [place] tablet 00 bedtime. [facility] tamsulosin 2019-0 Yes [id number] .4mg Take 1 [facility] 0.4 mg 24 4-07 capsule by [facility] hr capsule 00:00: mouth [place] 00 daily. [facility] tiZANidine 2019-0 Yes [id number] 4mg Take 1 [facility] 4 mg tablet 4-07 tablet by [facility] 00:00: mouth [place] 00 every 8 Medical (eight) Branch hours as needed (muscle pain or spasm). carvediloL 2020-0 Yes [id number] 6.25mg Take 1 [facility] 6.25 mg 4-07 tablet by [facility] tablet 00:00: mouth 2 [place] 00 (two) Medical times [facility] daily with meals. amLODIPine 2019-0 Yes [id number] 5mg Take 1 [facility] 5 mg tablet 4-07 tablet by [facility] 00:00: mouth [place] 00 daily. [facility] lisinopril 2019-0 Yes [id number] 20mg Take 1 [facility] 20 mg 4-07 tablet by [facility] tablet 00:00: mouth [place] 00 daily. [facility] atorvastati 2019-0 Yes [id number] 40mg Take 1 [facility] n (LIPITOR) 4-07 tablet by [facility] 40 mg 00:00: mouth at [place] tablet 00 bedtime. [facility] tamsulosin 2019-0 Yes [id number] .4mg Take 1 [facility] 0.4 mg 24 4-07 capsule by [facility] hr capsule 00:00: mouth [place] 00 daily. [facility] tiZANidine 2019-0 Yes [id number] 4mg Take 1 [facility] 4 mg tablet 4-07 tablet by [facility] of 00:00: mouth [place] 00 every 8 Medical (eight) Branch hours as needed (muscle pain or spasm). lisinopril 2020-0 Yes [id number] 20mg Take 1 [facility] 20 mg 4-07 tablet by [facility] tablet 00:00: mouth [place] 00 daily. [facility] atorvastati 2019-0 Yes [id number] 40mg Take 1 [facility] n (LIPITOR) 4-07 tablet by [facility] 40 mg 00:00: mouth at [place] tablet 00 bedtime. [facility] tamsulosin 2019-0 Yes [id number] .4mg Take 1 [facility] 0.4 mg 24 4-07 capsule by [facility] hr capsule 00:00: mouth [place] 00 daily. [facility] tiZANidine 2020-0 Yes [id number] 4mg Take 1 [facility] 4 mg tablet 4-07 tablet by [facility] of 00:00: mouth [place] 00 every 8 Medical (eight) Branch hours as needed (muscle pain or spasm). lisinopril 2020-0 Yes [id number] 20mg Take 1 [facility] 20 mg 4-07 tablet by [facility] tablet 00:00: mouth [place] 00 daily. [facility] atorvastati 2020-0 Yes [id number] 40mg Take 1 [facility] n (LIPITOR) 4-07 tablet by [facility] of 40 mg 00:00: mouth at [place] tablet 00 bedtime. [facility] tiZANidine 2020-0 Yes [id number] 4mg Take 1 [facility] 4 mg tablet 4-07 tablet by [facility] of 00:00: mouth [place] 00 every 8 Medical (eight) Branch hours as needed (muscle pain or spasm). lisinopril 2020-0 Yes [id number] 20mg Take 1 [facility] 20 mg 4-07 tablet by [facility] tablet 00:00: mouth [place] 00 daily. [facility] atorvastati 2020-0 Yes [id number] 40mg Take 1 [facility] n (LIPITOR) 4-07 tablet by [facility] of 40 mg 00:00: mouth at [place] tablet 00 bedtime. [facility] tiZANidine 2020-0 Yes [id number] 4mg Take 1 [facility] 4 mg tablet 4-07 tablet by [facility] of 00:00: mouth [place] 00 every 8 Medical (eight) Branch hours as needed (muscle pain or spasm). lisinopril 2020-0 Yes [id number] 20mg Take 1 [facility] 20 mg 4-07 tablet by [facility] tablet 00:00: mouth [place] 00 daily. [facility] atorvastati 2020-0 Yes [id number] 40mg Take 1 [facility] n (LIPITOR) 4-07 tablet by [facility] of 40 mg 00:00: mouth at [place] tablet 00 bedtime. [facility] tiZANidine 2020-0 Yes [id number] 4mg Take 1 [facility] 4 mg tablet 4-07 tablet by [facility] of 00:00: mouth [place] 00 every 8 Medical (eight) Branch hours as needed (muscle pain or spasm). atorvastati 2020-0 Yes [id number] 40mg Take 1 [facility] n (LIPITOR) 4-07 tablet by [facility] of 40 mg 00:00: mouth at [place] tablet 00 bedtime. [facility] tiZANidine 2020-0 Yes [id number] 4mg Take 1 [facility] 4 mg tablet 4-07 tablet by [facility] of 00:00: mouth [place] 00 every 8 Medical (eight) Branch hours as needed (muscle pain or spasm). tiZANidine 2020-0 Yes [id number] 4mg Take 1 [facility] 4 mg tablet 4-07 tablet by [facility] of 00:00: mouth [place] 00 every 8 Medical (eight) Branch hours as needed (muscle pain or spasm). tiZANidine 2020-0 Yes [id number] 4mg Take 1 [facility] 4 mg tablet 4-07 tablet by [facility] of 00:00: mouth [place] 00 every 8 Medical (eight) Branch hours as needed (muscle pain or spasm). tiZANidine 2020-0 Yes [id number] 4mg Take 1 [facility] 4 mg tablet 4-07 tablet by [facility] of 00:00: mouth [place] 00 every 8 Medical (eight) Branch hours as needed (muscle pain or spasm). tiZANidine 2020-0 Yes [id number] 4mg Take 1 [facility] 4 mg tablet 4-07 tablet by [facility] of 00:00: mouth [place] 00 every 8 Medical (eight) Branch hours as needed (muscle pain or spasm). tiZANidine 2020-0 Yes [id number] 4mg Take 1 [facility] 4 mg tablet 4-07 tablet by [facility] of 00:00: mouth [place] 00 every 8 Medical (eight) Branch hours as needed (muscle pain or spasm). tiZANidine 2020-0 Yes [id number] 4mg Take 1 [facility] 4 mg tablet 4-07 tablet by [facility] of 00:00: mouth [place] 00 every 8 Medical (eight) Branch hours as needed (muscle pain or spasm). tiZANidine 2020-0 Yes [id number] 4mg Take 1 [facility] 4 mg tablet 4-07 tablet by [facility] of 00:00: mouth [place] 00 every 8 Medical (eight) Branch hours as needed (muscle pain or spasm). tiZANidine 2020-0 Yes [id number] 4mg Take 1 [facility] 4 mg tablet 4-07 tablet by [facility] of 00:00: mouth [place] 00 every 8 Medical (eight) Branch hours as needed (muscle pain or spasm). tiZANidine 2020-0 Yes [id number] 4mg Take 1 [facility] 4 mg tablet 4-07 tablet by [facility] of 00:00: mouth [place] 00 every 8 Medical (eight) Branch hours as needed (muscle pain or spasm). tiZANidine 2020-0 Yes [id number] 4mg Take 1 [facility] 4 mg tablet 4-07 tablet by [facility] of 00:00: mouth [place] 00 every 8 Medical (eight) Branch hours as needed (muscle pain or spasm). tiZANidine 2020-0 Yes [id number] 4mg Take 1 [facility] 4 mg tablet 4-07 tablet by [facility] of 00:00: mouth [place] 00 every 8 Medical (eight) Branch hours as needed (muscle pain or spasm). tiZANidine 2020-0 Yes [id number] 4mg Take 1 [facility] 4 mg tablet 4-07 tablet by [facility] of 00:00: mouth [place] 00 every 8 Medical (eight) Branch hours as needed (muscle pain or spasm). tiZANidine 2020-0 Yes [id number] 4mg Take 1 [facility] 4 mg tablet 4-07 tablet by [facility] of 00:00: mouth [place] 00 every 8 Medical (eight) Branch hours as needed (muscle pain or spasm). tiZANidine 2020-0 2020- No [id number] 4mg Take 1 [facility] 4 mg tablet -10 07- tablet by it y of 00:00: 00:00 mouth [place] 00 :00 every 8 Medical (eight) Branch hours as needed (muscle pain or spasm). tiZANidine 2020-0 2020- No [id number] 4mg Take 1 [facility] 4 mg tablet 07-09- tablet by it y of 00:00: 00:00 mouth [place] 00 :00 every 8 Medical (eight) Branch hours as needed (muscle pain or spasm). atorvastati 2020-0 2020- No [id number] 40mg Take 1 Univers n (LIPITOR) 4-10 12-30 tablet by it y of 40 mg 00:00: 00:00 mouth at [place] tablet 00 :00 bedtime. Medical Branch atorvastati 2020-0 2020- No [id number] 40mg Take 1 Univers n (LIPITOR) 4- 11-30 tablet by it y of 40 mg 00:00: 00:00 mouth at [place] tablet 00 :00 bedtime. Medical Branch atorvastati 2020- No [id number] 40mg Take 1 Univers n (LIPITOR) 07-09 tablet by it y of 40 mg 00:00: 00:00 mouth at [place] tablet 00 :00 bedtime. Medical Branch lisinopril 2019- No [id number] 20mg Take 1 Univers 20 mg 07-09 tablet by ity of tablet 00:00: 00:00 mouth [place] 00 :00 daily. Medical Branch tamsulosin 2019- No [id number] .4mg Take 1 Univers 0.4 mg 24 07-09 capsule by ity of hr capsule 00:00: 00:00 mouth [place] 00 :00 daily. Medical Branch carvediloL 2019- No [id number] 6.25mg Take 1 Univers 6.25 mg 07-09 tablet by ity of tablet 00:00: 00:00 mouth 2 [place] 00 :00 (two) Medical times Branch daily with meals. amLODIPine 2019- No [id number] 5mg Take 1 Univers 5 mg tablet 07-09 tablet by it y of 00:00: 00:00 mouth [place] 00 :00 daily. Medical Branch TAMSULOSIN Yes [id number] TAKE 1 Univers 0.4 mg 24 05-04 CAPSULE BY ity of hr capsule 00:00: MOUTH [place]CE [place] 00 DAILY [facility] Branch CARVEDILOL Yes [id number] TAKE 1 U nivers 6.25 mg 05-04 TABLET BY ity of tablet 00:00: MOUTH [place] 00 TWICE Medical DAILY WITH Branch MEALS TAMSULOSIN 2020- No [id number] TAKE 1 Univers 0.4 mg 24 05-04- CAPSULE BY ity of hr capsule 00:00: 00:00 MOUTH ONCE [place] 00 :00 DAILY Medical Branch CARVEDILOL 2020- No [id number] TAKE 1 Univers 6.25 mg 05-04- TABLET BY ity of tablet 00:00: 00:00 MOUTH [place] 00 :00 TWICE Medical DAILY WITH Branch MEALS amLODIPine 2018-04 Yes [id number] 5mg Take 1 U nivers 5 mg tablet 2-02 tablet by ity of 00:00: mouth [place] 00 daily. Medical Branch amLODIPine 2018-04- No [id number] 5mg Take 1 Univers 5 mg tablet 2 04-07 tablet by it y of 00:00: 00:00 mouth [place] 00 :00 daily. Medical Branch lisinopril 2018- Yes [id number] 20mg Take 1 U nivers 20 mg 0-31 tablet by ity of tablet 00:00: mouth [place] 00 daily. Medical Branch lisinopril 2018-04 2020- No [id number] 20mg Take 1 [facility] 20 mg 0-31 04-07 tablet by ity of tablet 00:00: 00:00 [...] daily. Medical Branch atorvastati 2018- 2020- No [id number] 40mg Take 1 Univers n (LIPITOR) 0-25 10-25 tablet by it y of 40 mg 00:00: 04:59 mouth at [place] tablet 00 :00 bedtime. Medical Branch atorvastati 2018- 2020- No [id number] 40mg Take 1 Univers n (LIPITOR) 0-25 04-07 tablet by it y of 40 mg 00:00: 00:00 mouth at [place] tablet 00 :00 bedtime. Medical Branch bacitracin 2019- No [id number] Apply to [place] [address] 10-24 affected ity of unit/gram 00:00: 04:59 area(s[place] 4 [place] ointment 00 :00 (four) Medical times Branch daily for 10 days. bacitracin 2019- No [id number] Apply to [facility] 500 7- affected ity of unit/gram 00:00: 04:59 [place](s[place] 4 [place]int[place] 00 :00 (four) Medical times Branch daily for 10 days. TAMSULOSIN Yes [id number] TAKE 1 Univers 0.4 mg 24 6-24 CAPSULE BY ity of hr capsule 00:00: MOUTH ONCE [place] 00 DAILY [facility] Branch TAMSULOSIN Yes [id number] TAKE 1 Univers 0.4 mg 24 6-24 CAPSULE BY ity of hr capsule 00:00: MOUTH ONCE [place] 00 DAILY [facility] Branch TAMSULOSIN Yes [id number] TAKE 1 Univers 0.4 mg 24 6-24 CAPSULE BY ity of hr capsule 00:00: MOUTH ONCE [place] 00 DAILY [facility] Branch TAMSULOSIN Yes [id number] TAKE 1 Univers 0.4 mg 24 6-24 CAPSULE BY ity of hr capsule 00:00: MOUTH ONCE [place] 00 DAILY Medical Branch amLODIPine Yes [id number] 5mg Take 1 U nivers 5 mg tablet 5-09 tablet by ity of 00:00: mouth [place] 00 daily. Medical Branch amLODIPine Yes [id number] 5mg Take 1 U nivers 5 mg tablet 5-09 tablet by ity of 00:00: mouth [place] 00 daily. Medical Branch amLODIPine Yes [id number] 5mg Take 1 U nivers 5 mg tablet 5-09 tablet by ity of 00:00: mouth [place] 00 daily. Medical Branch amLODIPine Yes [id number] 5mg Take 1 U nivers 5 mg tablet 5-09 tablet by ity of 00:00: mouth [place] 00 daily. Medical Branch lisinopril Yes [id number] 20mg Take 1 U nivers 20 mg 4-23 tablet by ity of tablet 00:00: mouth [place] 00 daily. Medical Branch lisinopril 0 Yes [id number] 20mg Take 1 U nivers 20 mg 4-23 tablet by ity of tablet 00:00: mouth [place] 00 daily. Medical Branch lisinopril Yes [id number] 20mg Take 1 U nivers 20 mg 4-23 tablet by ity of tablet 00:00: mouth [place] 00 daily. Medical Branch lisinopril 2019-0 Yes [id number] 20mg Take 1 U nivers 20 mg [...] (muscle pain or spasm). carvedilol 2017-04 Yes [id number] 6.25mg Take 1 Univers 6.25 mg 0-05 tablet by ity of tablet 00:00: mouth 2 (two) Medical times Branch daily with meals. carvedilol 2017-04 Yes [id number] 6.25mg Take 1 Univers 6.25 mg 0-05 tablet by ity of tablet 00:00: mouth 2 (two) Medical times Branch daily with meals. carvedilol 2017-04 Yes [id number] 6.25mg Take 1 Univers 6.25 mg 0-05 tablet by ity of tablet 00:00: mouth 2 (two) Medical times Branch daily with meals. carvedilol 2017-04 Yes [id number] 6.25mg Take 1 Univers 6.25 mg 0-05 tablet by ity of tablet 00:00: mouth 2 [place] 00 (two) [facility] daily with meals. No known [facility] [place] [facility] Immunizations Ordered Filled Date Status Comments Source Immunization Name Immunization Name SARS-COV-2 COVID-19 2022-02-01 Completed Unive rsity [...] 2022-02-01 Completed Unive rsity of MAY-SUCROSE 00:00:00 [place] [facility]ica l VACCINE 12 YRS+, Branch BIVALENT [...] Completed Universit y of Conjugate, PCV20 00:00:00 [facility] dical (Prevnar 20) Branch Pneumococcal 20 2022-01-22 Completed Universit y of Conjugate, PCV20 00:00:00 [place] [facility] dical (Prevnar 20) Branch Pneumococcal 20 2022-01-22 Completed Universit y of Conjugate, PCV20 00:00:00 [place] Me dical (Prevnar 20) Branch Pneumococcal 20 2022-01-22 Completed Universit y of Conjugate, PCV20 00:00:00 [place] [facility] (Prevnar 20) Branch Pneumococcal 20 2022-01-22 Completed Universit y of Conjugate, PCV20 00:00:00 [place] Me dical (Prevnar 20) Branch Pneumococcal 20 2022-01-22 Completed Universit y of Conjugate, PCV20 00:00:00 [place] Me dical (Prevnar 20) Branch Pneumococcal 20 2022-01-22 Completed Universit y of Conjugate, PCV20 00:00:00 [facility] dical (Prevnar 20) Branch Pneumococcal 20 2022-01-22 Completed Universit y of Conjugate, PCV20 00:00:00 [facility] dical (Prevnar 20) Branch SARS-COV-2 COVID-19 2021-01-30 Completed Unive rsity of PFIZER VACCINE 00:00:00 [facility] Branch SARS-COV-2 COVID-19 2021-01-30 Completed Unive rsity of PFIZER VACCINE 00:00:00 [facility] Branch SARS-COV-2 COVID-19 2021-01-30 Completed Unive rsity of PFIZER VACCINE 00:00:00 [facility] Branch SARS-COV-2 COVID-19 2021-01-30 Completed Unive rsity of PFIZER VACCINE 00:00:00 [facility] Branch SARS-COV-2 COVID-19 2021-01-30 Completed Unive rsity of PFIZER VACCINE 00:00:00 [facility] Branch SARS-COV-2 COVID-19 2021-01-30 Completed Unive rsity of PFIZER VACCINE 00:00:00 [facility] Branch SARS-COV-2 COVID-19 2021-01-30 Completed Unive rsity of PFIZER VACCINE 00:00:00 [facility] Branch SARS-COV-2 COVID-19 2021-01-30 Completed Unive rsity of PFIZER VACCINE 00:00:00 [facility] Branch SARS-COV-2 COVID-19 2021-01-30 Completed Unive rsity of PFIZER VACCINE 00:00:00 [facility] Branch SARS-COV-2 COVID-19 2021-01-30 Completed Unive rsity of PFIZER VACCINE 00:00:00 [facility] Branch SARS-COV-2 COVID-19 2021-01-30 Completed Unive rsity of PFIZER VACCINE 00:00:00 [facility] Branch SARS-COV-2 COVID-19 2021-01-30 Completed Unive rsity of PFIZER VACCINE 00:00:00 [facility] Branch SARS-COV-2 COVID-19 2021-01-30 Completed Unive rsity of PFIZER VACCINE 00:00:00 [facility] Branch SARS-COV-2 COVID-19 2021-01-30 Completed Unive rsity of PFIZER VACCINE 00:00:00 [facility] Branch SARS-COV-2 COVID-19 2021-01-30 Completed Unive rsity of PFIZER VACCINE 00:00:00 [facility] Branch SARS-COV-2 COVID-19 2021-01-30 Completed Unive rsity of PFIZER VACCINE 00:00:00 [facility] Branch SARS-COV-2 COVID-19 2021-01-30 Completed Unive rsity of PFIZER VACCINE 00:00:00 [facility] Branch SARS-COV-2 COVID-19 2021-01-30 Completed Unive rsity of PFIZER VACCINE 00:00:00 [facility] SARS-COV-2 COVID-19 2021-01-30 Completed Unive rsity of PFIZER VACCINE 00:00:00 [facility] SARS-COV-2 COVID-19 2021-01-30 Completed Unive rsity of PFIZER VACCINE 00:00:00 [facility] Branch SARS-COV-2 COVID-19 2021-01-30 Completed Unive rsity of PFIZER VACCINE 00:00:00 [facility] Branch SARS-COV-2 COVID-19 2021-01-30 Completed Unive rsity of PFIZER VACCINE 00:00:00 [facility] SARS-COV-2 COVID-19 2021-01-30 Completed Unive rsity of PFIZER VACCINE 00:00:00 [facility] SARS-COV-2 COVID-19 2021-01-30 Completed Unive rsity of PFIZER VACCINE 00:00:00 [facility] SARS-COV-2 COVID-19 2021-01-30 Completed Unive rsity of PFIZER VACCINE 00:00:00 [facility] SARS-COV-2 COVID-19 2021-01-30 Completed Unive rsity of PFIZER VACCINE 00:00:00 [facility] Branch Pneumococcal 2020-12-15 Completed University o f [...] 00:00:00 [place] [facility] ical PPSV23 (PNEUMOVAX) Branch SARS-COV-2 COVID-19 2020-06-21 Completed Unive rsity of PFIZER VACCINE 00:00:00 [facility] SARS-COV-2 COVID-19 2020-06-21 Completed Unive rsity of PFIZER VACCINE 00:00:00 [place] [facility] Branch SARS-COV-2 COVID-19 2020-06-21 Completed Unive rsity of PFIZER VACCINE 00:00:00 [facility] Branch SARS-COV-2 COVID-19 2020-06-21 Completed Unive rsity of PFIZER VACCINE 00:00:00 [facility] Branch SARS-COV-2 COVID-19 2020-06-21 Completed Unive rsity of PFIZER VACCINE 00:00:00 [facility] Branch SARS-COV-2 COVID-19 2020-06-21 Completed Unive rsity of PFIZER VACCINE 00:00:00 [facility] Branch SARS-COV-2 COVID-19 2020-06-21 Completed Unive rsity of PFIZER VACCINE 00:00:00 [facility] Branch SARS-COV-2 COVID-19 2020-06-21 Completed Unive rsity of PFIZER VACCINE 00:00:00 [facility] Branch SARS-COV-2 COVID-19 2020-06-21 Completed Unive rsity of PFIZER VACCINE 00:00:00 [facility] Branch SARS-COV-2 COVID-19 2020-06-21 Completed Unive rsity of PFIZER VACCINE 00:00:00 [facility] Branch SARS-COV-2 COVID-19 2020-06-21 Completed Unive rsity of PFIZER VACCINE 00:00:00 [facility] Branch SARS-COV-2 COVID-19 2020-06-21 Completed Unive rsity of PFIZER VACCINE 00:00:00 [facility] Branch SARS-COV-2 COVID-19 2020-06-21 Completed Unive rsity of PFIZER VACCINE 00:00:00 [facility] Branch SARS-COV-2 COVID-19 2020-06-21 Completed Unive rsity of PFIZER VACCINE 00:00:00 [facility] Branch SARS-COV-2 COVID-19 2020-06-21 Completed Unive rsity of PFIZER VACCINE 00:00:00 [facility] Branch SARS-COV-2 COVID-19 2020-06-21 Completed Unive rsity of PFIZER VACCINE 00:00:00 [facility] SARS-COV-2 COVID-19 2020-06-21 Completed Unive rsity of PFIZER VACCINE 00:00:00 [facility] Branch SARS-COV-2 COVID-19 2020-06-21 Completed Unive rsity of PFIZER VACCINE 00:00:00 [facility] Branch SARS-COV-2 COVID-19 2020-06-21 Completed Unive rsity of PFIZER VACCINE 00:00:00 [place] [facility] Branch SARS-COV-2 COVID-19 2020-06-21 Completed Unive rsity of PFIZER VACCINE 00:00:00 [facility] Branch SARS-COV-2 COVID-19 2020-06-21 Completed Unive rsity of PFIZER VACCINE 00:00:00 [facility] Branch SARS-COV-2 COVID-19 2020-06-21 Completed Unive rsity of PFIZER VACCINE 00:00:00 [facility] SARS-COV-2 COVID-19 2020-06-21 Completed Unive rsity of PFIZER VACCINE 00:00:00 [facility] SARS-COV-2 COVID-19 2020-06-21 Completed Unive rsity of PFIZER VACCINE 00:00:00 [facility] Branch SARS-COV-2 COVID-19 2020-06-21 Completed Unive rsity of PFIZER VACCINE 00:00:00 [facility] Branch SARS-COV-2 COVID-19 2020-06-21 Completed Unive rsity of PFIZER VACCINE 00:00:00 [facility] Branch SARS-COV-2 COVID-19 2020-06-21 Completed Unive rsity of PFIZER VACCINE 00:00:00 [facility] Branch SARS-COV-2 COVID-19 2020-06-21 Completed Unive rsity of PFIZER VACCINE 00:00:00 [facility] Branch SARS-COV-2 COVID-19 2020-06-21 Completed Unive rsity of PFIZER VACCINE 00:00:00 [facility] Branch SARS-COV-2 COVID-19 2020-06-21 Completed Unive rsity of PFIZER VACCINE 00:00:00 [facility] Branch SARS-COV-2 COVID-19 2020-06-21 Completed Unive rsity of PFIZER VACCINE 00:00:00 [facility] Branch SARS-COV-2 COVID-19 2020-06-21 Completed Unive rsity of PFIZER VACCINE 00:00:00 [facility] Branch SARS-COV-2 COVID-19 2020-06-21 Completed Unive rsity of PFIZER VACCINE 00:00:00 [facility] Branch SARS-COV-2 COVID-19 2020-06-21 Completed Unive rsity of PFIZER VACCINE 00:00:00 [facility] SARS-COV-2 COVID-19 2020-06-21 Completed Unive rsity of PFIZER VACCINE 00:00:00 [facility] Branch SARS-COV-2 COVID-19 2020-05-31 Completed Unive rsity of PFIZER VACCINE 00:00:00 [facility] SARS-COV-2 COVID-19 2020-05-31 Completed Unive rsity of PFIZER VACCINE 00:00:00 [facility] Branch SARS-COV-2 COVID-19 2020-05-31 Completed Unive rsity of PFIZER VACCINE 00:00:00 [facility] Branch SARS-COV-2 COVID-19 2020-05-31 Completed Unive rsity of PFIZER VACCINE 00:00:00 [facility] SARS-COV-2 COVID-19 2020-05-31 Completed Unive rsity of PFIZER VACCINE 00:00:00 [facility] Branch SARS-COV-2 COVID-19 2020-05-31 Completed Unive rsity of PFIZER VACCINE 00:00:00 [facility] Branch SARS-COV-2 COVID-19 2020-05-31 Completed Unive rsity of PFIZER VACCINE 00:00:00 [facility] SARS-COV-2 COVID-19 2020-05-31 Completed Unive rsity of PFIZER VACCINE 00:00:00 [facility] SARS-COV-2 COVID-19 2020-05-31 Completed Unive rsity of PFIZER VACCINE 00:00:00 [facility] SARS-COV-2 COVID-19 2020-05-31 Completed Unive rsity of PFIZER VACCINE 00:00:00 [facility] SARS-COV-2 COVID-19 2020-05-31 Completed Unive rsity of PFIZER VACCINE 00:00:00 [facility] SARS-COV-2 COVID-19 2020-05-31 Completed Unive rsity of PFIZER VACCINE 00:00:00 [facility] SARS-COV-2 COVID-19 2020-05-31 Completed Unive rsity of PFIZER VACCINE 00:00:00 [facility] SARS-COV-2 COVID-19 2020-05-31 Completed Unive rsity of PFIZER VACCINE 00:00:00 [facility] Branch SARS-COV-2 COVID-19 2020-05-31 Completed Unive rsity of PFIZER VACCINE 00:00:00 [facility] Branch SARS-COV-2 COVID-19 2020-05-31 Completed Unive rsity of PFIZER VACCINE 00:00:00 [facility] Branch SARS-COV-2 COVID-19 2020-05-31 Completed Unive rsity of PFIZER VACCINE 00:00:00 [facility] Branch SARS-COV-2 COVID-19 2020-05-31 Completed Unive rsity of PFIZER VACCINE 00:00:00 [facility] Branch SARS-COV-2 COVID-19 2020-05-31 Completed Unive rsity of PFIZER VACCINE 00:00:00 [facility] Branch SARS-COV-2 COVID-19 2020-05-31 Completed Unive rsity of PFIZER VACCINE 00:00:00 [facility] Branch SARS-COV-2 COVID-19 2020-05-31 Completed Unive rsity of PFIZER VACCINE 00:00:00 [facility] Branch SARS-COV-2 COVID-19 2020-05-31 Completed Unive rsity of PFIZER VACCINE 00:00:00 [facility] Branch SARS-COV-2 COVID-19 2020-05-31 Completed Unive rsity of PFIZER VACCINE 00:00:00 [facility] Branch SARS-COV-2 COVID-19 2020-05-31 Completed Unive rsity of PFIZER VACCINE 00:00:00 [facility] SARS-COV-2 COVID-19 2020-05-31 Completed Unive rsity of PFIZER VACCINE 00:00:00 [facility] Branch SARS-COV-2 COVID-19 2020-05-31 Completed Unive rsity of PFIZER VACCINE 00:00:00 [facility] SARS-COV-2 COVID-19 2020-05-31 Completed Unive rsity of PFIZER VACCINE 00:00:00 [facility] Branch SARS-COV-2 COVID-19 2020-05-31 Completed Unive rsity of PFIZER VACCINE 00:00:00 [facility] SARS-COV-2 COVID-19 2020-05-31 Completed Unive rsity of PFIZER VACCINE 00:00:00 [facility] Branch SARS-COV-2 COVID-19 2020-05-31 Completed Unive rsity of PFIZER VACCINE 00:00:00 [facility] SARS-COV-2 COVID-19 2020-05-31 Completed Unive rsity of PFIZER VACCINE 00:00:00 [facility] SARS-COV-2 COVID-19 2020-05-31 Completed Unive rsity of PFIZER VACCINE 00:00:00 [facility] SARS-COV-2 COVID-19 2020-05-31 Completed Unive rsity of PFIZER VACCINE 00:00:00 [facility] SARS-COV-2 COVID-19 2020-05-31 Completed Unive rsity of PFIZER VACCINE 00:00:00 [facility] SARS-COV-2 COVID-19 2020-05-31 Completed Unive rsity of PFIZER VACCINE 00:00:00 [facility] Pneumococcal 2020-03-03 Completed University o f Polysaccharide, 00:00:00 [place] [facility] ical PPSV23 (PNEUMOVAX) Branch Pneumococcal 2020-03-03 [...] 2020-03-03 Completed University o f Polysaccharide, 00:00:00 [facility] ical PPSV23 (PNEUMOVAX) Branch Pneumococcal 2020-03-03 Completed University o f Polysaccharide, 00:00:00 [place] [facility] ical PPSV23 (PNEUMOVAX) Branch Influenza Virus 2019-12-04 Completed Universit y of Vaccine Quad ID 00:00:00 [place] [facility] ical 18-64 YRS Branch Influenza Virus 2019-12-04 Completed Universit y of Vaccine Recomb Quad 00:00:00 [place] [facility] IM, Preserv and ABX Branc h Free 18-64 YRS Influenza Virus 2019-12-04 Completed Universit y of Vaccine Quad ID 00:00:00 [facility] ical 18-64 YRS Branch Influenza Virus [...] Universit y of Vaccine Quad ID 00:00:00 [facility] ical 18-64 YRS Branch Influenza Virus 2019-12-04 Completed Universit y of Vaccine Recomb Quad 00:00:00 [place] [facility] IM, Preserv and ABX Branc h Free 18-64 YRS Influenza Virus 2019-12-04 Completed Universit y of Vaccine Quad ID 00:00:00 [facility] ical 18-64 YRS [place] Influenza Virus 2019-12-04 Completed Universit y of Vaccine Recomb Quad 00:00:00 [place] [facility] IM, Preserv and ABX Branc h Free 18-64 YRS Influenza Virus 2019-12-04 Completed Universit y of Vaccine Quad ID 00:00:00 [facility] ical 18-64 YRS [place] Influenza Virus 2019-12-04 Completed Universit y of Vaccine Recomb Quad 00:00:00 [place] [facility] IM, Preserv and ABX Branc h Free 18-64 YRS Influenza Virus 2019-12-04 Completed Universit y of Vaccine Quad ID 00:00:00 [place] [facility] ical 18-64 YRS Branch Influenza Virus 2019-12-04 Completed Universit y of Vaccine Recomb Quad 00:00:00 [place] [facility] IM, Preserv and ABX Branc h Free 18-64 YRS Influenza Virus 2019-12-04 Completed Universit y of Vaccine Quad ID 00:00:00 [place] [facility] ical 18-64 YRS Branch Influenza Virus 2019-12-04 Completed Universit y of Vaccine Recomb Quad 00:00:00 [place] [facility] IM, Preserv and ABX Branc h Free 18-64 YRS Influenza Virus 2019-12-04 Completed Universit y of Vaccine Quad ID 00:00:00 [facility] ical 18-64 YRS [place] Influenza Virus 2019-12-04 Completed Universit y of Vaccine Recomb Quad 00:00:00 [place] [facility] IM, Preserv and ABX Branc h Free 18-64 YRS Influenza Virus 2019-12-04 Completed Universit y of Vaccine Quad ID 00:00:00 [facility] ical 18-64 YRS [place] Influenza Virus 2019-12-04 Completed Universit y of Vaccine Recomb Quad 00:00:00 [place] [facility] IM, Preserv and ABX Branc h Free 18-64 YRS Influenza Virus 2019-12-04 Completed Universit y of Vaccine Quad ID 00:00:00 [facility] ica 18-64 YRS [place] Influenza Virus 2019-12-04 Completed Universit y of Vaccine Recomb Quad 00:00:00 [place] [facility] IM, Preserv and ABX Branc h Free 18-64 YRS Influenza Virus 2019-12-04 Completed Universit y of Vaccine Quad ID 00:00:00 [facility] 18-64 YRS [place] Influenza Virus 2019-12-04 Completed Universit y of Vaccine Quad ID 00:00:00 [facility] 18-64 YRS [place] Influenza Virus 2019-12-04 Completed Universit y of Vaccine Quad ID 00:00:00 [facility] 18-64 YRS [place] Influenza Virus 2019-12-04 Completed Universit y of Vaccine Quad ID 00:00:00 [facility] 18-64 YRS [place] Influenza Virus 2019-12-04 Completed Universit y of Vaccine Quad ID 00:00:00 [facility] 18-64 YRS [place] Influenza Virus 2019-12-04 Completed Universit y of Vaccine Recomb Quad 00:00:00 [place] [facility] IM, Preserv and ABX Branc h Free 18-64 YRS Influenza Virus 2019-12-04 Completed Universit y of Vaccine Quad ID 00:00:00 [facility] ica 18-64 YRS [place] Influenza Virus 2019-12-04 Completed Universit y of Vaccine Recomb Quad 00:00:00 [place] [facility] IM, Preserv and ABX Branc h Free 18-64 YRS Influenza Virus 2019-12-04 Completed Universit y of Vaccine Quad ID 00:00:00 [facility] ical 18-64 YRS [place] Influenza Virus 2019-12-04 Completed Universit y of [...] Universit y of Vaccine Quad ID 00:00:00 [place] [facility] ical 18-64 YRS Branch Influenza Virus 2019-12-04 Completed Universit y of Vaccine Recomb Quad 00:00:00 [place] [facility] IM, Preserv and ABX Branc h Free 18-64 YRS Influenza Virus 2019-12-04 Completed Universit y of Vaccine Quad ID 00:00:00 [facility] ical 18-64 YRS [place] Influenza Virus 2019-12-04 Completed Universit y of Vaccine Recomb Quad 00:00:00 [place] [facility] IM, Preserv and ABX Branc h Free 18-64 YRS Influenza Virus 2019-12-04 Completed Universit y of Vaccine Quad ID 00:00:00 [facility] ica 18-64 YRS [place] Influenza Virus 2019-12-04 Completed Universit y of Vaccine Quad ID 00:00:00 [facility] ica 18-64 YRS [place] Influenza Virus 2019-12-04 Completed Universit y of Vaccine Recomb Quad 00:00:00 [place] [facility] IM, Preserv and ABX Branc h Free 18-64 YRS Influenza Virus 2019-12-04 Completed Universit y of Vaccine Recomb Quad 00:00:00 [place] [facility] IM, Preserv and ABX Branc h Free 18-64 YRS Influenza Virus 2019-12-04 Completed Universit y of Vaccine Quad ID 00:00:00 [facility] ica 18-64 YRS [place] Influenza Virus 2019-12-04 Completed Universit y of Vaccine Recomb Quad 00:00:00 [place] [facility] IM, Preserv and ABX Branc h Free 18-64 YRS Influenza Virus 2019-12-04 Completed Universit y of Vaccine Quad ID 00:00:00 [facility] ical 18-64 YRS [place] Influenza Virus 2019-12-04 Completed [facility]it [facility] of Vaccine Recomb Quad 00:00:00 [facility] IM, Preserv and ABX Branc h Free 18-64 YRS Influenza Virus 2019-12-04 Completed Universit y of Vaccine Quad ID 00:00:00 [facility] ical 18-64 YRS [place] Influenza Virus 2019-12-04 Completed Universit y of [...] Universit y of Vaccine Quad ID 00:00:00 [facility] ical 18-64 YRS Branch Influenza Virus 2019-12-04 Completed [facility]it y of Vaccine Recomb Quad 00:00:00 [facility] IM, Preserv and ABX Branc h Free 18-64 YRS Influenza Virus 2019-12-04 Completed Universit y of Vaccine Quad ID 00:00:00 [facility] ical 18-64 YRS [place] Influenza Virus 2019-12-04 Completed [facility]it y of Vaccine Recomb Quad 00:00:00 [facility] IM, Preserv and ABX Branc h Free 18-64 YRS Influenza Virus 2019-12-04 Completed [facility]it y of Vaccine Quad ID 00:00:00 [facility] ica 18-64 YRS [place] Influenza Virus 2019-12-04 Completed [facility]it y of Vaccine Recomb Quad 00:00:00 [facility] IM, Preserv and ABX Branc h Free 18-64 YRS Influenza Virus 2019-12-04 Completed [facility]it y of Vaccine Quad ID 00:00:00 [facility] ica 18-64 YRS [place] Influenza Virus 2019-12-04 Completed [facility]it [facility] of Vaccine Recomb Quad 00:00:00 [facility] IM, Preserv and ABX Branc h Free 18-64 YRS Influenza Virus 2019-12-04 Completed [facility]it y of Vaccine Quad ID 00:00:00 [facility] ica 18-64 YRS [place] Influenza Virus 2019-12-04 Completed [facility]it [facility] of Vaccine Recomb Quad 00:00:00 [facility] IM, Preserv and ABX Branc h Free 18-64 YRS Influenza Virus 2019-12-04 Completed [facility]it y of Vaccine Quad ID 00:00:00 [place] [facility] ical 18-64 YRS Branch Influenza Virus 2019-12-04 Completed [facility]it y of Vaccine Recomb Quad 00:00:00 [facility] IM, Preserv and ABX Branc h Free 18-64 YRS Influenza Virus 2019-12-04 Completed [facility]it y of Vaccine Quad ID 00:00:00 [facility] ical 18-64 YRS [place] Influenza Virus 2019-12-04 Completed [facility]it [facility] of [...] ID 00:00:00 [facility] 18-64 YRS [place] Influenza Virus 2019-12-04 Completed [facility]it y of [...] ID 00:00:00 [facility] 18-64 YRS [place] Influenza Virus 2019-01-10 Completed [facility]it y of Vaccine Quad ID 00:00:00 [facility] 18-64 YRS Branch Influenza Virus [...] [facility]it [facility] of Vaccine Quad ID 00:00:00 [facility] 18-64 YRS Branch Influenza Virus 2019-01-10 Completed [facility] of Vaccine Quad ID 00:00:00 [facility] 18-64 YRS Branch Influenza Virus 2019-01-10 Completed [facility]it [facility] of Vaccine Quad ID 00:00:00 [facility] 18-64 YRS Branch Influenza Virus [...] [facility]it [facility] of Vaccine Quad ID 00:00:00 [facility] 18-64 YRS Branch Influenza Virus 2019-01-10 Completed [facility] of Vaccine Quad ID 00:00:00 [place] [facility] 18-64 YRS Branch Influenza Virus 2019-01-10 Completed [facility]it y of Vaccine Quad ID 00:00:00 [facility] ical 18-64 YRS Branch Influenza Virus 2019-01-10 Completed [facility]it y of Vaccine Quad ID 00:00:00 [facility] ical 18-64 YRS Branch Influenza Virus 2019-01-10 Completed [facility]it y of Vaccine Quad ID 00:00:00 [facility] ical 18-64 YRS Branch Influenza Virus 2019-01-10 Completed [facility]it [facility] of Vaccine Quad ID 00:00:00 [facility] 18-64 YRS Branch Influenza Virus 2019-01-10 Completed [facility]it y of Vaccine Quad ID 00:00:00 [facility] ical 18-64 YRS Branch Influenza Virus 2019-01-10 Completed [facility]it y of Vaccine Quad ID 00:00:00 [place] [facility] ical 18-64 YRS Branch Influenza Virus 2019-01-10 Completed [facility]it y of Vaccine Quad ID 00:00:00 [facility] ical 18-64 YRS Branch Influenza Virus 2019-01-10 Completed [facility]it y of Vaccine Quad ID 00:00:00 [facility] ical 18-64 YRS Branch Influenza Virus 2019-01-10 Completed [facility]it y of Vaccine Quad ID 00:00:00 [facility] ical 18-64 YRS Branch Influenza Virus 2019-01-10 Completed [facility]it y of Vaccine Quad ID 00:00:00 [facility] ical 18-64 YRS Branch Influenza Virus 2019-01-10 Completed [facility]it y of Vaccine Quad ID 00:00:00 [place] [facility] ical 18-64 YRS Branch Influenza Virus 2019-01-10 Completed [facility]it y of Vaccine Quad ID 00:00:00 [facility] ical 18-64 YRS Branch Influenza Virus 2019-01-10 Completed [facility] of Vaccine Quad ID 00:00:00 [place] [facility] 18-64 YRS Branch Influenza Virus 2019-01-10 Completed [facility]it y of Vaccine Quad ID 00:00:00 [facility] ical 18-64 YRS Branch Influenza Virus 2019-01-10 Completed [facility] of Vaccine Quad ID 00:00:00 [place] [facility] ical 18-64 YRS Branch Influenza Virus 2019-01-10 Completed [facility]it y of Vaccine Quad ID 00:00:00 [facility] ical 18-64 YRS Branch Influenza Virus 2019-01-10 Completed [facility]it y of Vaccine Quad ID 00:00:00 [place] [facility] ical 18-64 YRS Branch Influenza Virus 2019-01-10 Completed [facility]it y of Vaccine Quad ID 00:00:00 [facility] ical 18-64 YRS Branch Influenza Virus 2019-01-10 Completed [facility]it y of Vaccine Quad ID 00:00:00 [facility] ical 18-64 YRS Branch Influenza Virus 2019-01-10 Completed [facility]it y of Vaccine Quad ID 00:00:00 [facility] ical 18-64 YRS Branch Influenza Virus 2019-01-10 Completed [facility]it y of Vaccine Quad ID 00:00:00 [facility] ical 18-64 YRS Branch Influenza Virus 2019-01-10 Completed [facility]it y of Vaccine Quad ID 00:00:00 [facility] ical 18-64 YRS Branch Influenza Virus 2019-01-10 Completed [facility]it y of Vaccine Quad ID 00:00:00 [facility] ical 18-64 YRS Branch Influenza Virus 2019-01-10 Completed [facility]it y of Vaccine Quad ID 00:00:00 [facility] ical 18-64 YRS Branch Influenza Virus 2019-01-10 Completed [facility]it y of Vaccine Quad ID 00:00:00 [facility] ical 18-64 YRS Branch Influenza Virus 2019-01-10 Completed [facility]it y of Vaccine Quad ID 00:00:00 [facility] ical 18-64 YRS Branch Influenza Virus 2019-01-10 Completed [facility]it y of Vaccine Quad ID 00:00:00 [facility] ical 18-64 YRS [place] Influenza Virus 2019-01-10 Completed [facility]it y of Vaccine Quad ID 00:00:00 [facility] ical 18-64 YRS Branch Influenza Virus 2019-01-10 Completed [facility]it y of Vaccine Quad ID 00:00:00 [facility] ical 18-64 YRS Branch Influenza Virus 2019-01-10 Completed [facility] Vaccine Quad ID 00:00:00 [place] [facility] ical 18-64 YRS Branch Influenza Virus 2019-01-10 Completed [facility]it y of Vaccine Quad ID 00:00:00 [facility] ical 18-64 YRS Branch Influenza Virus 2019-01-10 Completed [facility]it y of Vaccine Quad ID 00:00:00 [facility] ical 18-64 YRS Branch Influenza Virus 2019-01-10 Completed [facility]it y of Vaccine Quad ID 00:00:00 [facility] ical 18-64 YRS Branch Influenza Virus 2019-01-10 Completed [facility]it y of Vaccine Quad ID 00:00:00 [facility] ical 18-64 YRS Branch Influenza Virus 2019-01-10 Completed [facility]it y of Vaccine Quad ID 00:00:00 [facility] ical 18-64 YRS Branch Tdap 2012-11-02 Completed University of 00:00:00 [facility] TDAP 2012-11-02 Completed University of 00:00:00 [facility] Branch TDAP 2012-11-02 Completed University of 00:00:00 [facility] Tdap 2012-11-02 Completed University of 00:00:00 [facility] TDAP 2012-11-02 Completed University of 00:00:00 [facility] TDAP 2012-11-02 Completed University of 00:00:00 [facility] TDAP 2012-11-02 Completed University of 00:00:00 [facility] TDAP 2012-11-02 Completed University of 00:00:00 [facility] Tdap 2012-11-02 Completed University of 00:00:00 [facility] TDAP 2012-11-02 Completed University of 00:00:00 [facility] TDAP 2012-11-02 Completed University of 00:00:00 [facility] TDAP 2012-11-02 Completed University of 00:00:00 [facility] TDAP 2012-11-02 Completed University of 00:00:00 [facility] Tdap 2012-11-02 Completed University of 00:00:00 [facility] TDAP 2012-11-02 Completed University of 00:00:00 [facility] TDAP 2012-11-02 Completed University of 00:00:00 [facility] Branch TDAP 2012-11-02 Completed University of 00:00:00 [facility] TDAP 2012-11-02 Completed University of 00:00:00 [facility] TDAP 2012-11-02 Completed University of 00:00:00 [facility] TDAP 2012-11-02 Completed University of 00:00:00 [facility] Tdap 2012-11-02 Completed University of 00:00:00 [facility] Tdap 2012-11-02 Completed University of 00:00:00 [facility] Tdap 2012-11-02 Completed University of 00:00:00 [facility] TDAP 2012-11-02 Completed University of 00:00:00 [facility] TDAP 2012-11-02 Completed University of 00:00:00 [facility] TDAP 2012-11-02 Completed University of 00:00:00 [facility] TDAP 2012-11-02 Completed University of 00:00:00 [facility] TDAP 2012-11-02 Completed [facility] of 00:00:00 [facility] TDAP 2012-11-02 Completed [facility] of 00:00:00 [facility] TDAP 2012-11-02 Completed [facility] of 00:00:00 [facility] TDAP 2012-11-02 Completed [facility] of 00:00:00 [facility] TDAP 2012-11-02 Completed [facility] of 00:00:00 [facility] TDAP 2012-11-02 Completed [facility] of 00:00:00 [facility] TDAP 2012-11-02 Completed [facility] of 00:00:00 [facility] TDAP 2012-11-02 Completed [facility] of 00:00:00 [facility] TDAP 2012-11-02 Completed [facility] of 00:00:00 [facility] TDAP 2012-11-02 Completed University of 00:00:00 [facility] TDAP 2012-11-02 Completed University of 00:00:00 [facility] TDAP 2012-11-02 Completed [facility] of 00:00:00 [facility] TDAP 2012-11-02 Completed [facility] of 00:00:00 [facility] TDAP 2012-11-02 Completed [facility] of 00:00:00 [facility] TDAP 2012-11-02 Completed [facility] of 00:00:00 [facility] TDAP 2012-11-02 Completed University of 00:00:00 [facility] TDAP 2012-11-02 Completed [facility] of 00:00:00 [facility] TDAP 2012-11-02 Completed [facility] of 00:00:00 [facility] TDAP 2012-11-02 Completed [facility] of 00:00:00 [facility] TDAP 2012-11-02 Completed [facility] of 00:00:00 [facility] TDAP 2012-11-02 Completed [facility] of 00:00:00 [facility] TDAP 2012-11-02 Completed [facility] of 00:00:00 [facility] TDAP 2012-11-02 Completed [facility] of 00:00:00 [facility] TDAP 2012-11-02 Completed [facility] of 00:00:00 [facility] Tdap 2012-11-02 Completed [facility] of 00:00:00 [facility] TDAP 2012-11-02 Completed [facility] of 00:00:00 [facility] TDAP 2012-11-02 Completed University of 00:00:00 [facility] TDAP 2012-11-02 Completed University of 00:00:00 [facility] TDAP 2012-11-02 Completed University of 00:00:00 [facility] Tdap 2012-11-02 Completed University of 00:00:00 [facility] TDAP 2012-11-02 Completed University of 00:00:00 [facility] TDAP 2012-11-02 Completed University of 00:00:00 [facility] TDAP 2012-11-02 Completed [facility] of 00:00:00 [facility] Tdap 2012-11-02 Completed University of 00:00:00 [facility] TDAP 2012-11-02 Completed University of 00:00:00 [facility] TDAP 2012-11-02 Completed University of 00:00:00 [facility] TDAP Unknown Completed [facility] Influenza Virus Unknown Completed [facility]it y of Vaccine Quad ID [place] [facility] 18-64 YRS Branch Influenza Virus Unknown Completed [facility] y of Vaccine Quad ID [facility] 18-64 YRS Branch Influenza Virus Unknown Completed Universit y of Vaccine Recomb Quad [facility] IM, Preserv and ABX Branc h Free 18-64 YRS Pneumococcal Unknown Completed University o f Polysaccharide, [place] [facility] PPSV23 (PNEUMOVAX) Branch SARS-COV-2 COVID-19 Unknown Completed Unive rsity of PFIZER VACCINE [facility] SARS-COV-2 COVID-19 Unknown Completed Unive rsity of PFIZER VACCINE [facility] Pneumococcal Unknown Completed University o f Polysaccharide, [place] [facility] PPSV23 (PNEUMOVAX) Branch SARS-COV-2 COVID-19 Unknown Completed Unive rsity of PFIZER VACCINE [facility] Pneumococcal 20 Unknown Completed Universit y of Conjugate, PCV20 [facility] dical (Prevnar 20) Branch SARS-COV-2 COVID-19 Unknown Completed Unive rsity of MAY-SUCROSE [place] [facility] VACCINE 12 YRS+, Branch BIVALENT 0.3ML, IM, (PFIZER PADILLA TOP) TDAP Unknown Completed [facility] Influenza Virus Unknown Completed [facility] y of Vaccine Quad ID [place] [facility] 18-64 YRS Branch Influenza Virus Unknown Completed [facility] y of Vaccine Quad ID [place] [facility] 18-64 YRS Branch Influenza Virus Unknown Completed [facility]it y of Vaccine Recomb Quad [facility] IM, Preserv and ABX Branc h Free 18-64 YRS Pneumococcal Unknown Completed University o f Polysaccharide, [place] [facility] PPSV23 (PNEUMOVAX) Branch SARS-COV-2 COVID-19 Unknown Completed Unive rsity of PFIZER VACCINE [facility] Branch SARS-COV-2 COVID-19 Unknown Completed Unive rsity of PFIZER VACCINE [facility] Branch Pneumococcal Unknown Completed University o f Polysaccharide, [place] [facility] PPSV23 (PNEUMOVAX) Branch SARS-COV-2 COVID-19 Unknown Completed Unive rsity of PFIZER VACCINE [facility] Branch Pneumococcal 20 Unknown Completed [facility] of Conjugate, PCV20 [place] [facility] (Prevnar 20) Branch SARS-COV-2 COVID-19 Unknown Completed Unive rsity of MAY-SUCROSE [place] [facility] VACCINE 12 YRS+, Branch BIVALENT 0.3ML, IM, (PFIZER PADILLA TOP) TDAP Unknown Completed [facility] Influenza Virus Unknown Completed [facility]it y of Vaccine Quad ID [place] [facility] 18-64 YRS Branch Influenza Virus Unknown Completed [facility] y of Vaccine Quad ID [place] [facility] 18-64 YRS Branch Influenza Virus Unknown Completed [facility]it y of Vaccine Recomb Quad [facility] IM, Preserv and ABX Branc h Free 18-64 YRS Pneumococcal Unknown Completed University o f Polysaccharide, [place] [facility] PPSV23 (PNEUMOVAX) Branch SARS-COV-2 COVID-19 Unknown Completed Unive rsity of PFIZER VACCINE [facility] Branch SARS-COV-2 COVID-19 Unknown Completed Unive rsity of PFIZER VACCINE [facility] Branch Pneumococcal Unknown Completed University o f Polysaccharide, [place] [facility] PPSV23 (PNEUMOVAX) Branch SARS-COV-2 COVID-19 Unknown Completed Unive rsity of PFIZER VACCINE [facility] Branch Pneumococcal 20 Unknown Completed [facility]it y of Conjugate, PCV20 [place] [facility] (Prevnar 20) Branch SARS-COV-2 COVID-19 Unknown Completed Unive rsity of MAY-SUCROSE [place] [facility] VACCINE 12 YRS+, Branch BIVALENT 0.3ML, IM, (PFIZER PADILLA TOP) TDAP Unknown Completed [facility] Influenza Virus Unknown Completed [facility] y of Vaccine Quad ID [place] [facility] 18-64 YRS Branch Influenza Virus Unknown Completed [facility] y of Vaccine Quad ID [place] [facility] 18-64 YRS Branch Influenza Virus Unknown Completed [facility]it y of Vaccine Recomb Quad [facility] IM, Preserv and ABX Branc h Free 18-64 YRS Pneumococcal Unknown Completed University o f Polysaccharide, [place] [facility] PPSV23 (PNEUMOVAX) Branch SARS-COV-2 COVID-19 Unknown Completed Unive rsity of PFIZER VACCINE [facility] Branch SARS-COV-2 COVID-19 Unknown Completed Unive rsity of PFIZER VACCINE [facility] Branch Pneumococcal Unknown Completed University o f Polysaccharide, [place] [facility] PPSV23 (PNEUMOVAX) Branch SARS-COV-2 COVID-19 Unknown Completed Unive rsity of PFIZER VACCINE [facility] Pneumococcal 20 Unknown Completed Universit y of Conjugate, PCV20 [facility] dical (Prevnar 20) Branch TDAP Unknown Completed [facility] Influenza Virus Unknown Completed [facility]it y of Vaccine Quad ID [place] [facility] 18-64 YRS Branch Influenza Virus Unknown Completed [facility]it y of Vaccine Quad ID [place] [facility] 18-64 YRS Branch Influenza Virus Unknown Completed Universit y of Vaccine Recomb Quad [facility] IM, Preserv and ABX Branc h Free 18-64 YRS Pneumococcal Unknown Completed University o f Polysaccharide, [place] [facility] PPSV23 (PNEUMOVAX) Branch SARS-COV-2 COVID-19 Unknown Completed Unive rsity of PFIZER VACCINE [facility] SARS-COV-2 COVID-19 Unknown Completed Unive rsity of PFIZER VACCINE [facility] Vital Signs Vital Name Observation Time Observation Value Comments Source HEIGHT 2020-11-04 172.7 cm 21:44:00 WEIGHT 2020-11-04 95.709 kg 21:44:00 Systolic blood 2022-10-27 130 mm[Hg] University of pressure 15:11:00 [facility] Diastolic blood 2022-10-27 80 mm[Hg] University o f pressure 15:11:00 [facility] Heart rate 2022-10-27 84 /min University 14:55:00 [facility] Body weight 2022-10-27 93.486 kg University of 14:42:00 [facility] BMI 2022-10-27 29.57 kg/m2 University of 14:42:00 [facility] Systolic blood 2022-10-15 152 mm[Hg] University of pressure 18:04:00 [facility] Diastolic blood 2022-10-15 90 mm[Hg] University o f pressure 18:04:00 [facility] Heart rate 2022-10-15 67 /min University of 18:03:00 [facility] Body temperature 2022-10-15 36.72 [place] University of 18:03:00 [facility] Branch Body height 2022-10-15 177.8 cm University of 18:03:00 [facility] Body weight 2022-10-15 93.441 kg University of 18:03:00 [facility] BMI 2022-10-15 29.56 kg/m2 University of 18:03:00 [facility] Oxygen saturation 2022-10-15 99 /min University of in Arterial blood 18:03:00 [facility] kacey by Pulse oximetry Branch Systolic blood 2022-02-01 139 mm[Hg] University of pressure 16:26:00 [facility] Branch Diastolic blood 2022-02-01 82 mm[Hg] University o f pressure 16:26:00 [facility] Heart rate 2022-02-01 71 /min University of 16:25:00 [facility] Body height 2022-02-01 177.8 cm University of 16:25:00 [facility] Body weight 2022-02-01 95.255 kg University of 16:25:00 [facility] BMI 2022-02-01 30.13 kg/m2 University of 16:25:00 [facility] Oxygen saturation 2022-02-01 98 /min University of in Arterial blood 16:25:00 [facility] kacey by Pulse oximetry Branch Systolic blood 2022-01-22 148 mm[Hg] University of pressure 14:45:00 [facility] Diastolic blood 2022-01-22 83 mm[Hg] University o f pressure 14:45:00 [facility] Heart rate 2022-01-22 85 /min University of 14:44:00 [facility] Body temperature 2022-01-22 36.56 [place] University of 14:44:00 [facility] Body height 2022-01-22 172.7 cm University of 14:44:00 [facility] Body weight 2022-01-22 95.255 kg University of 14:44:00 [facility] BMI 2022-01-22 31.93 kg/m2 University of 14:44:00 [facility] Oxygen saturation 2022-01-22 98 /min University of in Arterial blood 14:44:00 [place] [facility] by Pulse oximetry Branch HEIGHT 2020-11-04 172.7 cm 21:44:00 WEIGHT 2020-11-04 95.709 kg 21:44:00 Systolic blood 2020-09-02 143 mm[Hg] University of pressure 15:15:00 [facility] Diastolic blood 2020-09-02 90 mm[Hg] University o f pressure 15:15:00 [facility] Heart rate 2020-09-02 65 /min University of 15:15:00 [facility] Body height 2020-09-02 175.3 cm University of 15:12:00 [facility] Body weight 2020-09-02 98.431 kg University of 15:12:00 [facility] BMI 2020-09-02 32.05 kg/m2 University of 15:12:00 [facility] Systolic blood 2020-09-02 143 mm[Hg] University of pressure 15:15:00 [facility] Diastolic blood 2020-09-02 90 mm[Hg] University o f pressure 15:15:00 [facility] Heart rate 2020-09-02 65 /min University of 15:15:00 [facility] Body height 2020-09-02 175.3 cm University of 15:12:00 [facility] Body weight 2020-09-02 98.431 kg University of 15:12:00 [facility] BMI 2020-09-02 32.05 kg/m2 University of 15:12:00 [facility] Systolic blood 2020-05-09 145 mm[Hg] University of pressure 15:33:00 [facility] Diastolic blood 2020-05-09 99 mm[Hg] University o f pressure 15:33:00 [facility] Heart rate 2020-05-09 73 /min University of 15:04:00 [facility] Body temperature 2020-05-09 36 [place] University of 15:04:00 [facility] Body height 2020-05-09 175.3 cm University of 15:04:00 [facility] Body weight 2020-05-09 102.967 kg University of 15:04:00 [facility] BMI 2020-05-09 33.52 kg/m2 University of 15:04:00 [facility] Oxygen saturation 2020-05-09 99 /min University of in Arterial blood 15:04:00 [facility] by Pulse oximetry Branch Systolic blood 2020-03-03 143 mm[Hg] patient has not University of pressure 16:38:00 taken his [facility] medications today Branch Diastolic blood 2020-03-03 93 mm[Hg] patient has not Universit y of pressure 16:38:00 taken his [facility] medications today Branch Heart rate 2020-03-03 98 /min University of 16:38:00 [facility] Body temperature 2020-03-03 36.61 [place] University of 16:38:00 [facility] Body height 2020-03-03 175.3 cm University of 16:38:00 [facility] Body weight 2020-03-03 102.059 kg University of 16:38:00 [facility] BMI 2020-03-03 33.23 kg/m2 University of 16:38:00 [facility] Systolic blood 2018-10-30 155 mm[Hg] University of pressure 14:14:00 [facility] Diastolic blood 2018-10-30 98 mm[Hg] University o f pressure 14:14:00 [facility] Heart rate 2018-10-30 63 /min University of 14:14:00 [facility] Body temperature 2018-10-30 37.06 [place] University of 14:14:00 [facility] Respiratory rate 2018-10-30 16 /min [facility] 14:14:00 [facility] Body height 2018-10-30 175.3 cm University of 14:14:00 [facility] Body weight 2018-10-30 103.42 kg University of 14:14:00 [facility] BMI 2018-10-30 33.67 kg/m2 University [facility] 14:14:00 [facility] Procedures Procedure Date / Time Performing Clinician Source Performed [facility] PATIENT FINANCIAL 2022-10-27 14:39:54 Doctor Unassigned, Un [facility] POLICY [place] [facility] URINALYSIS 2022-10-15 18:47:00 [facility] o f [facility] PROSTATIC SPECIFIC 2022-10-15 18:45:00 Rosaura Castillo [facility] ANTIGEN SCREEN [facility] THYROID STIMULATING 2022-10-15 18:45:00 Rosaura Castillo [facility] HORMONE [facility] COMP. METABOLIC PANEL 2022-10-15 18:45:[address] [facility] ([id number]) Medical Branch LIPID PANEL (92079)(TOTAL 2022-10-15 18:45:[address] [facility] CHOLESTEROL, Medical Branch TRIGLYCERIDES, HDL) CBC WITH DIFF 2022-10-15 18:45:00 Rosaura Castillo [facility] GLYCOSYLATED HEMOGLOBIN 2022-10-15 18:45:00 Rosaura Castillo [facility] (A1C) Medical Branch CBC WITH DIFF 2022-02-01 17:04:00 Clive [facility] FERRITIN SERUM 2022-02-01 17:04:00 Clive [facility] COMP. METABOLIC PANEL 2022-02-01 17:04:00 Clive [facility] ([id number]) Medical Branch LIPID PANEL (00190)(TOTAL 2022-02-01 17:04:00 Darby Nielsen [facility] CHOLESTEROL, [facility] TRIGLYCERIDES, HDL) IRON PANEL 2022-02-01 17:04:00 Clive [facility] GLYCOSYLATED HEMOGLOBIN 2022-02-01 17:04:00 Darby Nielsen [facility] (A1C) Medical [place] SARS-COV-2 COVID-19 2022-02-01 16:41:37 Darby Nielsen [facility] MAY-SUCROSE VACCINE 12 [facility] YRS+, BIVALENT 0.3ML, IM, (PFIZER PADILLA TOP BOOSTER) PNEUMOCOCCAL 20 CONJUGATE 2022-01-22 15:08:02 Darby Nielsen [facility] (PREVNAR 20) VACCINE [facility] ASSIGNMENT OF BENEFITS 2022-01-22 14:11:57 Doctor Unassigned, [facility] [place] [facility] SARS-COV-2 COVID-19 2021-01-30 14:05:55 Doctor Denise, [facility] VACCINE,0.3ML,IM (PFIZER) [place] [facility] VACCINATIONS - CONSENTS, 2020-12-15 05:01:00 Doctor Denise, [facility] ELIGIBILITY, HISTORY [place] [facility] SCANNED LAB RESULTS 2020-09-10 05:01:00 Doctor Denise [facility] [place] [facility] [place] PHYSICIAN CERTIFICATION 2020-05-16 06:01:00 Doctor Denise, [facility] STATEMENT [facility] [facility] URINALYSIS 2020-03-03 18:33:00 Leonides Tran [facility] [place] PROSTATIC SPECIFIC 2020-03-03 17:14:00 Leonides Tran [facility] ANTIGEN SCREEN [facility] THYROID STIMULATING 2020-03-03 17:14:00 Leonides Tran [facility] HORMONE [facility] COMP. METABOLIC PANEL 2020-03-03 17:14:00 Leonides Tran Un [facility] (91262) [facility] LIPID PANEL (73206)(TOTAL 2020-03-03 17:14:00 Leonides Tran [facility] CHOLESTEROL, [facility] TRIGLYCERIDES, HDL) CBC WITHOUT DIFF 2020-03-03 17:14:00 Leonides Tran [facility] GLYCOSYLATED HEMOGLOBIN 2020-03-03 17:14:00 Leonides Tran [facility] (A1C) [facility] VITAMIN D, 25-OH 2020-03-03 17:14:00 Leonides Tran [facility] PNEUMOCOCCAL VACCINE, 2020-03-03 16:57:58 Leonides Tran [facility] 23-VALENT (PNEUMOVAX) [facility] anch VACCINATIONS - CONSENTS, 2019-12-27 05:01:00 Doctor Denise, [facility] ELIGIBILITY, HISTORY [place] [facility] MEDICATION HISTORY 2018-12-06 05:01:00 Doctor Denise [facility] RECONCILIATION FORM [place] [facility] ch AUTHORIZATION FOR RELEASE 2018-09-29 05:01:00 Doctor Denise [facility] OF PHI [facility] [facility] PATIENT QUESTIONNAIRE 2015-07-10 05:01:00 Doctor Denise [facility] [place] [facility] PATIENT QUESTIONNAIRE 2015-06-19 05:01:00 Doctor Denise [facility] [place] [facility] Plan of Care Planned Activity [...] C [facility] SCREENING] Future Scheduled 1954 CT Colonography (combo) [facility] Test 00:00:00 [code = CT Colonography [facility] (combo)] Future Scheduled 1954 Screening for malignant [facility] Test 00:00:00 neoplasm of colon Medical Ce nter (procedure) [code = 992366430] Future Scheduled 1954 Screening for malignant [facility] Test 00:00:00 neoplasm of colon Medical Ce nter (procedure) [code = 043760565] Future Scheduled 1954 Screening for malignant [facility] Test 00:00:00 neoplasm of colon Medical Ce nter (procedure) [code = 995136985] Future Scheduled 1954 Screening for malignant [facility] Test 00:00:00 neoplasm of colon Medical Ce nter (procedure) [code = 202154732] Future Scheduled 1954 Sigmoidoscopy [code = [facility] S[facility]oscopy] Medical Cente r Future Scheduled 1954 CT Colonography (combo) [facility] 00:00:00 [code = CT Colonography [facility] (combo)] Future Scheduled 1954 Screening for malignant [facility] Test 00:00:00 neoplasm of colon Medical Ce nter (procedure) [code = 150383486] Future Scheduled 1954 Screening for malignant [facility] Test 00:00:00 neoplasm of colon Medical Ce nter (procedure) [code = 229838051] Future Scheduled 1954 Screening for malignant [facility] Test 00:00:00 neoplasm of colon Medical Ce nter (procedure) [code = 548939230] Future Scheduled 1954 Screening for malignant [facility] Test 00:00:00 neoplasm of colon Medical Ce nter (procedure) [code = 598825585] Future Scheduled 1954 Sigmoidoscopy [facility]code [facility] Sigmoidoscopy] Medical Cente r Future Scheduled 1954 CT Colonography (combo) [facility] 00:00:00 [code = CT Colonography [facility] (combo)] Future Scheduled 1954 Screening for malignant [facility] 00:00:00 neoplasm of colon Medical Ce nter (procedure) [code = 270293889] Future Scheduled 1954 Screening for malignant [facility] Test 00:00:00 neoplasm of colon Medical Ce nter (procedure) [code = 306012925] Future Scheduled 1954 Screening for malignant [facility] Test 00:00:00 neoplasm of colon Medical Ce nter (procedure) [code = 476159188] Future Scheduled 1954 Screening for malignant [facility] Test 00:00:00 neoplasm of colon Medical Ce nter (procedure) [code = 625006695] Future Scheduled 1954 Sigmoidoscopy [facility]code [facility] Sigmoidoscopy] Medical Cente r Future Scheduled 1954 Screening for malignant [facility] Test 00:00:00 neoplasm of colon Medical Ce nter (procedure) [code = 266239813] Future Scheduled 1954 Screening for malignant [facility] Test 00:00:00 neoplasm of colon Medical Ce nter (procedure) [code = 880356307] Future Scheduled 1954 Sigmoidoscopy [facility]code [facility] Sigmoidoscopy] Medical Cente r Future Scheduled 1954 CT Colonography (combo) [facility] 00:00:00 [code = CT Colonography [facility] (combo)] Future Scheduled 1954 Screening for malignant [facility] Test 00:00:00 neoplasm of colon Medical Ce nter (procedure) [code = 832824162] Future Scheduled 1954 Screening for malignant [facility] Test 00:00:00 neoplasm of colon Medical Ce nter (procedure) [code = 057148681] Encounters Start End Encounter Admission Attending Care Care Encounter Source Date/Time Date/Time Type Type Clinicians Facility Department ID 2021-02-02 [facility] [id number] 16:03:40 [facility] 2020-11-04 Inpatient UR ONEAL, SLE General Med [id number] SLE 21:10:00 MICHAEL 2022-11-24 2022-11-24 Patient Doctor NAVEEN 1.2.840.114 [id number] Univers 00:00:00 00:00:00 Secure Msg Unassigned, ALETHEA 350.1.13.10 ity of [place] [facility] 4.2.7.2.686 Zak as [phone] [address] 2022-11-05 2022-11-05 Outpatient Mirian CONTE [facility] [id number] Univers 11:00:00 11:00:00 PADMAJA boogie [facility] 2022-11-04 2022-11-04 Outpatient R DARBY NIELSEN [facility] [id number] Univers 15:00:00 15:00:00 DARBY NIELSEN [facility] 2022-11-03 2022-11-03 Telephone CristóbalRUST 1.2.855.247 [id number] Univers 00:00:00 00:00:00 Rosaura Everett HEALTH 350.1.13.10 i ty of [place] 4.2.7.2.686 Zak as LIGIA?BLEA [phone] [address] MEDICAL OFFICE [facility] 2022-11-03 2022-11-03 Patient Doctor [facility] 1.2.840.114 [id number] Univers 00:00:00 00:00:00 Secure Msg Unassigned, HEALTH 350.1.13.10 ity [place] 4.2.7.2.686 Zak as ILGIA?BLEA [phone] [address] MEDICAL OFFICE [facility] 2022-10-27 2022-10-27 Manager Field Sales Lab, Ang - Db [facility] 1.2.840.1 14 [id number] Univers 10:15:00 10:30:00 Visit Rosaura Castillo HEALTH 350.1.13.10 ity of [place] 4.2.7.2.686 Zak as LIGIA?BLEA [phone] [facility] [address] [place] MEDICAL OFFICE [facility] [facility] 2022-10-27 2022-10-27 Outpatient R CRISTÓBAL [facility] [id number] Univers 09:30:00 10:10:28 ROSAURA hannah [facility] 2022-10-27 2022-10-27 Office CristóbalRUST 1.2.840.114 [id number] Univers 09:30:00 10:10:28 Visit Rosaura Everett HEALTH 350.1.13.10 i ty of [place] 4.2.7.2.686 Zak as LIGIA?BLEA [phone] [facility] [address] [place] MEDICAL OFFICE [facility] [facility] 2022-10-27 2022-10-27 Orders Doctor NAVEEN 1.2.840.114 [id number] Univers 00:00:00 00:00:00 Only Unassigned, ALETHEA 350.1.13.10 ity of [place] [facility] 4.2.7.2.686 Zak as [phone] [address] 2022-10-23 2022-10-23 Patient Doctor [facility] 1.2.840.114 [id number] Univers 00:00:00 00:00:00 Secure Msg Unassigned, HEALTH 350.1.13.10 ity of [place] 4.2.7.2.686 Zak as LIGIA?BLEA [phone] [facility] 0[address] [facility] OFFICE [facility] [address] 2022-10-16 2022-10-16 Telephone CristóbalRUST 1.2.192.141 [id number] Univers 00:00:00 00:00:00 Rosaura Everett HEALTH 350.1.13.10 i ty of [place] 4.2.7.2.686 Zak as LIGIA?BLEA [phone] [facility] 0[address] [facility] OFFICE [facility] 2022-10-15 2022-10-15 Manager Field Sales Lab, Ang - Db [facility] 1.2.840.1 14 [id number] Univers 13:30:00 15:04:34 Visit Rosaura Castillo HEALTH 350.1.13.10 ity of [place] 4.2.7.2.686 Zak as LIGIA?BLEA [phone] [facility] 353 [facility] OFFICE [facility] [facility] 2022-10-15 2022-10-15 Outpatient R CRISTÓBAL [facility] [id number] Univers 12:30:00 13:35:55 ROSAURA ity of [facility] 2022-10-15 2022-10-15 Office CristóbalRUST 1.2.840.114 [id number] Univers 12:30:00 13:35:55 Visit Rosaura Everett HEALTH 350.1.13.10 i ty of [place] 4.2.7.2.686 Zak as LIGIA?BLEA [phone] Pa ciara TENA 044 [facility] OFFICE [facility] 2022-10-11 2022-10-11 Telephone CliveRUST 1.2.094.703 [id number] Univers 00:00:00 00:00:00 [facility] 350.1.13.10 ity of [place] 4.2.7.2.686 Zak as LIGIA?BLEA [phone] Pa ciara TENA 044 [facility] OFFICE [facility] [address] 2022-10-08 2022-10-08 Emergency EM [place], HCACL ALEXANDER [id number] [facility] 11:15:00 13:00:00 Taiwo 40 [facility] 2022-03-17 2022-03-17 Outpatient R FARHAT [facility] [id number] Univers 10:00:00 10:00:00 KATHE hannah [facility] 2022-02-16 2022-02-16 Telephone CliveRUST 1.2.543.448 [id number] Univers 00:00:00 00:00:00 [facility] 350.1.13.10 ity of [place] 4.2.7.2.686 Zak as LIGIA?BLEA [phone] [facility] [address] 2022-02-01 2022-02-01 Manager Field Sales Lab, Ang - Db [facility] 1.2.840.1 14 [id number] Univers 12:00:00 12:14:39 [facility] 350.1.13.10 ity of [place] 4.2.7.2.686 Zak as LIGIA?BLEA [phone] Pa ciara TENA 353 [facility] OFFICE [facility] 2022-02-01 2022-02-01 Outpatient R CLIVE [facility] [id number] Univers 11:20:00 11:59:15 DARBY [facility] 2022-02-01 2022-02-01 Office CliveRUST 1.2.840.114 [id number] Univers 11:20:00 11:59:15 Visit [facility] 350.1.13.10 ity of [place] 4.2.7.2.686 Zak as LIGIA?BLEA [phone] [address] MEDICAL OFFICE [facility] 2022-01-22 2022-01-22 Outpatient R CLIVE [facility] [id number] Univers 09:40:00 10:23:36 DARBY ity of [facility] 2022-01-22 2022-01-22 Office Clive [facility] 1.2.840.114 [id number] Univers 09:40:00 10:23:36 Visit Darby HEALTH 350.1.13.10 [facility] 4.2.7.2.686 Zak as LIGIA?BLEA [phone] [address] OFFICE [facility] 2022-01-22 2022-01-22 Patient Doctor NAVEEN 1.2.840.114 [id number] Univers 00:00:00 00:00:00 Secure Msg Unassigned, ALETHEA 350.1.13.10 ity of [place] [facility] 4.2.7.2.686 Zak as [phone] [facility] [address] [place] 2022-01-22 2022-01-22 Orders Doctor NAVEEN 1.2.840.114 [id number] Univers 00:00:00 00:00:00 Only Unassigned, ALETHEA 350.1.13.10 ity of [place] [facility] 4.2.7.2.686 Zak as [phone] [facility] [address] [place] 2022-01-22 2022-01-22 Letter Clive [facility] 1.2.840.114 [id number] Univers 00:00:00 00:00:00 (Out) Darby HEALTH 350.1.13.10 ity of [place] 4.2.7.2.686 Zak as LIGIA?BLEA [phone] [address] MEDICAL OFFICE [facility] 2022-01-19 2022-01-19 Telephone Farhat [facility] 1.2.110.575 [id number] Univers 00:00:00 00:00:00 Kathe HEALTH 350.1.13.10 it y of [place] 4.2.7.2.686 Zak as LIGIA?BLEA [phone] [address] MEDICAL OFFICE BUILDING 2021-08-26 2021-08-26 CAV Katelyn 2.16.840. 2.16.840.1. CLA XREGFH [facility] 15:30:00 16:30:00 [place] 1.346510. 861560.4.6. [facility] 4.6.12229 [id number] 2021-08-24 2021-08-24 Outpatient Tum[place]_A [facility] [id number] Devoted 06:44:00 06:44:00 0523 Medica l Group 2021-05-11 2021-05-11 Refmariaa TranRUST 1.2.840.114 [id number] Univers 00:00:00 00:00:00 [place] [facility] A [facility] 350.1.13.10 ity jerrod [place] 4.2.7.2.686 Zak as PROFESSIO [phone] Pa dical NAL 044 [facility] ONE 2021-02-18 2021-02-18 CAV Millie 2.16.840. 2.16.840.1. [facility] [id number] Devoted 16:00:00 17:00:00 Lyle 1.518212. 844163.4.6. [facility] Medical 4.6.66675 [id number] 2021-02-05 2021-02-05 Outpatient Adams_R [facility] [id number] Devoted 08:01:00 08:01:00 1104 Medica l Group 2021-01-30 2021-01-30 Outpatient R KAMILLA [facility] [id number] Univers 10:10:00 09:04:47 BILL hannah [facility] 2021-01-30 2021-01-30 Imm/Inj Nurse, Adc Pob Immunization [facility] 1.2.840.114 [id number] Univers 09:03:10 09:04:47 Visit Bill Kohli 350.1.13 .10 itariadna [place].2.7.2.[place] PROFESS[place] [phone] Me dical NAL 421 [facility] 2021-01-09 2021-01-09 Outpatient [facility] [id number] Devoted 08:00:00 08:00:00 1008 Medica l Group 2020-12-15 2020-12-15 Orders Doctor NAVEEN 1.2.840.114 [id number] Univers 00:00:00 00:00:00 Only Unassigned, LAETHEA 350.1.13.10 ity of [place] [facility] 4.2.7.2.686 Zak as [phone] [address] 2020-12-04 2020-12-04 Outpatient R CHELSEA [facility] [id number] Univers 10:30:00 10:30:00 WONDIFUL ity o f [facility] 2020-11-04 2020-11-04 Telephone ChelseaRUST 1.2.840.114 [id number] 00:00:00 00:00:00 Wondiful A Health 350.1.13.10 [place] 4.2.7.2.686 Professio [phone] [place] [address] Office Building One 2020-11-04 2020-11-04 Telephone ChelseaRUST 1.2.840.114 [id number] Univers 00:00:00 00:00:00 Wondiful A Health 350.1.13.10 ity of [place] 4.2.7.2.686 Zak as Professio [phone] [address] Office [facility] One 2020-10-30 2020-10-30 [place] [id number] Devoted 08:00:00 08:00:00 0729 Medica l Group 2020-09-26 2020-09-26 Telephone ChelseaRUST 1.2.840.114 [id number] 00:00:00 00:00:00 Wondiful A Health 350.1.13.10 [place] 4.2.7.2.686 Professio [phone] [place] [address] Office Building One 2020-09-26 2020-09-26 Telephone Chelsea [facility] 1.2.840.114 [id number] Univers 00:00:00 00:00:00 Wondiful A Health 350.1.13.10 ity of [place] 4.2.7.2.686 Zak as Professio [phone] [address] Office Building One 2020-09-17 2020-09-17 Patient Doctor NAVEEN 1.2.840.114 [id number] Univers 00:00:00 00:00:00 Secure Msg Unassigned, ALETHEA 350.1.13.10 ity of [place] [facility] 4.2.7.2.686 Zak as [phone] [facility] [address] [place] 2020-09-15 2020-09-15 Case Chelsea [facility] 1.2.840.114 [id number] 00:00:00 00:00:00 Management Shantellful A Health 350.1.13.10 [place] 4.2.7.2.686 Professio [phone] [address] One 2020-09-15 2020-09-15 Case Chelsea [facility] 1.2.840.114 [id number] Univers 00:00:00 00:00:00 Management Shantellful A Health 350.1.13.10 ity of [place] 4.2.7.2.686 Zak as Professio [phone] [address] One 2020-09-10 2020-09-10 Orders Doctor NAVEEN 1.2.840.114 [id number] 00:00:00 00:00:00 Only Unassigned, ALETHEA 350.1.13.10 [place] [facility] 4.2.7.2.686 [id number] 009 2020-09-10 2020-09-10 Orders Doctor NAVEEN 1.2.840.114 [id number] [facility] 00:00:00 00:00:00 Only Unassigned, ALETHEA 350.1.13.10 ity of [place] [facility] 4.2.7.2.686 Zak as [phone] [facility] [address] [place] 2020-09-02 2020-09-02 Manager Field Sales Lab, [place] Tomas I [facility] 1.2. 840.114 [id number] [facility] 11:08:48 11:28:48 Visit Leonides Tran Health 350.1.13.1 0 ity of [place] 4.2.7.2.686 Zak as Professio [phone] [address] One 2020-09-02 2020-09-02 Office Chelsea [facility] 1.2.840.114 [id number] 09:24:19 11:06:36 Visit Wondiful A Health 350.1.13.10 [place] 4.2.7.2.686 Professio [phone] nal 044 Office [facility] One 2020-09-02 2020-09-02 Office Chelsea [facility] 1.2.840.114 [id number] Univers 09:24:19 11:06:36 Visit Wondiful A Health 350.1.13.10 ity of [place] 4.2.7.2.686 Zak as Professio [phone] Me dical [address] Office [facility] One 2020-09-02 2020-09-02 Outpatient R CHELSEA, [facility] [id number] Univers 10:30:00 10:30:00 WONDIFUL ity o f [facility] 2020-06-21 2020-06-21 Outpatient [facility] [id number] Univers 08:25:00 08:25:00 ity of [facility] 2020-06-20 2020-06-20 Outpatient R PAT, [facility] [id number] Univers 11:00:00 11:00:00 [facility] 2020-05-31 2020-05-31 Outpatient R LENCHO, [facility] [id number] Univers 09:40:00 09:40:00 CHINO [facility] 2020-05-16 2020-05-16 Orders Doctor NAVEEN 1..840.114 [id number] Univers 00:00:00 00:00:00 Only Unassigned, ALETHEA 350.1.13.10 ity of [place] [facility] 4.2.7.2.686 Zak as [phone] [address] 2020-05-09 2020-05-09 Urgent Provider, [facility] 1.2.840.114 [id number] Univers 08:37:04 09:28:57 Care Viridiana [facility] 350.1.13.10 ity of [place] 4.2.7.2.686 Zak as Professio [phone] Me dic[address] Office Building One 2020-05-09 2020-05-09 Outpatient R MYA [facility] [id number] Univers 09:20:00 09:20:00 VIRIDIANA hannah [facility] 2020-03-24 2020-03-24 [facility] [id number] Univers 09:00:00 09:00:00 WONDIFUL ity o f [facility] 2020-03-12 2020-03-12 [facility] PAT Uriostegui 1.2.840.114 [id number] Univers 13:52:00 23:59:00 Encounter Abundio Govea 350.1.13.10 ity of [place] 4.2.7.2.686 Zak as [phone] [address] 2020-03-12 2020-03-12 Outpatient R GILARUST ACO [id number] Univers 00:00:00 00:00:00 ABUNDIO hannah [facility] 2020-03-12 2020-03-12 Ag TranRUST 1.2.840.114 [id number] Univers 00:00:00 00:00:00 Management Wondiful A Health 350.1.13.10 ity of [place] 4.2.7.2.686 Zak as Professio [phone] Pa dic[address] Office [facility] One 2020-03-12 2020-03-12 Telephone [facility] 1.2.840.114 [id number] Univers 00:00:00 00:00:00 Wondiful A Health 350.1.13.10 ity of [place] 4.2.7.2.686 Zak as Professio [phone] Pa dic[address] Office Building One 2020-03-11 2020-03-11 [facility] 1.2.840.114 [id number] Univers 00:00:00 00:00:00 Wondiful A Health 350.1.13.10 ity of [place] 4.2.7.2.686 Zak as Professio [phone] [address] Office Building One 2020-03-06 2020-03-06 Telephone [facility] 1.2.840.114 [id number] Univers 00:00:00 00:00:00 Wondiful A Health 350.1.13.10 ity of [place] 4.2.7.2.686 Zak as Professio [phone] [address] 2020-03-03 2020-03-03 Manager Field Sales Lab, Adc Fam Pob I [facility] 1.2. 840.114 [id number] Univers 11:02:30 11:20:02 Visit Dannie Tranjudeyomaira A Health 350.1.13.1 0 ity of [place] 4.2.7.2.686 Zak as Professio [phone] [address] 2020-03-03 2020-03-03 Office ChelseaRUST ..840.114 [id number] Univers 08:29:52 11:15:29 Visit Wondiful [facility] Health 350.1.13.10 ity of [place] 4.2.7.2.686 Zak as Professio [phone] [address] 2020-03-03 2020-03-03 Outpatient R CHELSEA [facility] [id number] Univers 10:45:00 10:45:00 WONDIFUL ity o f [facility] 2020-01-25 2020-01-25 Refill ChelseaRUST ..840.114 [id number] Univers 00:00:00 00:00:00 Wondiful A Health 350.1.13.10 ity of [place] 4.2.7.2.686 Zak as Professio [phone] [address] 2020-01-21 2020-01-21 Outpatient R [facility] [id number] Univers 11:00:00 11:00:00 WONDIFUL ity o f [facility] 2020-01-04 2020-01-04 Outpatient R [facility] [id number] Univers 15:45:00 15:45:00 WONDIFUL ity o f [facility] 2020-01-04 2020-01-04 Telemedici [facility] ..840.114 [id number] Univers 07:35:15 07:50:15 ne Visit [facility] [id number] ity of [place] [id number] Zak as Professio [phone] [address] 2019-12-27 2019-12-27 Orders Doctor NAVEEN [id number] Univers 00:00:00 00:00:00 Only Unassigned, ALETHEA [id number] ity of [place] [facility] 4.2.7.2.686 Zak as [phone] [address] 2019-12-25 2019-12-25 Refill [facility] 1.2.840.114 [id number] Univers 00:00:00 00:00:00 Wondiful A [place] 350.1.13.10 [place]2.[place] [phone] [address] 2019-12-03 2019-12-03 Refill [facility] 1.2.840.114 [id number] Univers 00:00:00 00:00:00 Wondiful A [facility] 350.1.13.10 ity of [place] 4.2.7.2.686 [place]ak as Professio [phone] [address] 2019-09-18 2019-09-18 Pre Visit [facility] 1.2.840.114 [id number] Univers 00:00:00 00:00:00 Outreach Wondiful A [place] 350.1.13.10 [place] [phone] [address] 2019-08-24 2019-08-24 Telemedici [facility]ma [facility] 1.2.840.114 [id number] Univers 07:46:39 11:08:44 ne Visit Health 350.1.13.10 i [place]7.2.[place] [phone] [facility] [address] [place] Office [facility] 2019-08-24 2019-08-24 Outpatient R ELMA AUSTIN [facility] [id number] Univers 09:30:00 09:30:00 ity of [facility] 2019-07-10 2019-07-10 Telemedici [facility] 1.2.840.114 [id number] Univers 14:00:09 15:15:53 ne Visit Leonides [place] 350.1.13.10 [place].2.[place] [phone] [address] 2019-07-10 2019-07-10 Outpatient R CHELSEA [facility] [id number] Univers 14:35:00 14:35:00 WONDIFUL ity o f [facility] 2019-07-05 2019-07-05 Outpatient R CHELSEA [facility] [id number] Univers 09:45:00 09:45:00 WONDIFUL ity o f [facility] 2019-07-03 2019-07-03 Refill [facility] 1.2.840.114 [id number] Univers 00:00:00 00:00:00 Wondiful [facility] 350.1.13.10 ity of [place] 4.2.7.2.686 [place]ak as Professio [phone] [address] Office [facility] 2019-01-26 2019-01-26 Outpatient R MILES AUSTINA [facility] [id number] Univers 09:30:00 10:31:17 ity of [facility] 2018-12-06 2018-12-06 Orders Doctor HODGE 1.2.840.114 [id number] Univers 00:00:00 00:00:00 Only Unassigned, ALETHEA 350.1.13.10 ity of [place] [facility] 4.2.7.2.686 Zak as [phone] [address] 2018-10-30 2018-10-30 Office [facility] 1.2.840.114 [id number] Univers 08:42:33 09:46:36 Visit [facility] 350.1.13.10 it y of [place] 4.2.7.2.686 Zak as Professio [phone] [address] Office [facility] 2018-09-29 2018-09-29 Orders Doctor HODGE 1.2.840.114 [id number] Univers 00:00:00 00:00:00 Only Unassigned, ALETHEA 350.1.13.10 ity of [place] [facility] 4.2.7.2.686 Zak as [phone] [address] 2015-07-10 2015-07-10 Orders Doctor NAVEEN 1.2.840.114 [id number] Univers 00:00:00 00:00:00 Only Unassigned, ALETHEA 350.1.13.10 ity of [place] [facility] 4.2.7.2.686 Zak as [phone] [address] 2015-06-19 2015-06-19 Orders Doctor NAVEEN 1.2.840.114 [id number] Univers 00:00:00 00:00:00 Only Unassigned, ALETHEA 350.1.13.10 ity of [place] [facility] 4.2.7.2.686 Zak as [phone] [address] Results Test Description Test Time Test Comments Results Result Comments Source GLYCOSYLATED HEMOGLOBIN (A1C) 2022-10-15 23:50:04 Test Item Value Reference Range Interpretation Comme nts HGB A1C (test code = 4548-4) 5.0 % 4.0-5.7 DAYRON (test code = DAYRON) Reference RangesNormal: <5.7%Prediabetes: 5.7 - 6.4%Diabetes: > 6.5% Lab Interpretation (test code = Normal 18390-6) [facility] [id number] 22:37:08 Test Item Value Reference Range Interpretation Comments TSH (test code = 1.95 See_Comment [Automated message] 1970567819) The system [employer] generated this result transmitted ref erence range: 0.45 - 4 .70 mIU/L. The refe rence range was not u sed to interpret this result as normal/abnor mal. Lab Interpretation (test Normal code = 66131-8) [facility] ANTIGEN [id number] 22:36:47 Test Item Value Reference Range Interpretation Comments PSA (test code = 1.79 ng/mL <=4.00 9141913592) DAYRON (test code = DAYRON) Biotin has been reported to cause a negative bias, interpret results relative to patient's use of biotin. Lab Interpretation (test Normal code = 85397-9) [facility]. METABOLIC PANEL (52384)2022-10-15 22:10:06 Test Item Value Reference Range Interpretation Comments NA (test code = 141 mmol/L 135-145 1964534782) K (test code = 4.7 mmol/L 3.5-5.0 8498448682) CL (test code = 102 mmol/L 98-108 7564832798) CO2 TOTAL (test code = 29 mmol/L 23-31 3208196154) AGAP (test code = 10 2-16 4728731672) BUN (test code = 14 mg/dL 7-23 1889386803) GLUCOSE (test code = 88 mg/dL 70-110 1592282515) CREATININE (test code = 1.08 mg/dL 0.60-1.25 3314225487) TOTAL BILI (test code = 1.0 mg/dL 0.1-1.6 0724707198) CALCIUM (test code = 10.0 mg/dL 8.6-10.6 0049823686) T PROTEIN (test code = 7.9 g/dL 6.3-8.2 8958493451) ALBUMIN (test code = 4.4 g/dL 3.5-5.0 2766925022) ALK PHOS (test code = 78 U/L 34-122 8024722879) ALTv (test code = 42 U/L 5-50 1742-6) AST(SGOT) (test code = 41 U/L 13-40 H 1068925192) eGFR (test code = 68.0 mL/min/1.73m2 5129889513) DAYRON (test code = DAYRON) Association of [...] tests). Lab Interpretation Abnormal (test code = 83175-4) [facility] CenterLIP[facility] PANEL (09296)(TOTAL CHOLESTEROL, TRIGLYCERIDES, HDL)2022-10-15 22:10:06 Test Item Value Reference Range Interpretation Comments CHOL (test code = 0921455772) 164 mg/dL 120-200 HDL (test code = 7417138228) 31 mg/dL >=40 L HDLC RATIO (test code = 5341565183) 5.3 <=5.0 H TRIG (test code = 7109471390) 143 mg/dL 30-170 LDL CHOL (test code = 03516-4) 104 mg/dL <=160 VLDL (test code = 3417131823) 29 mg/dL 5-60 Lab Interpretation (test code = Abnormal 87851-0) [facility] WITH [id number] 21:11:32 Test Item Value Reference Range Interpretation Comments WBC (test code = 10.86 See_Comment H [Automated 2190-2) message] The sy stem which generated this result transmitted reference range : 4.20 - 10.70 10*3/?L. The reference range was not used to interpret this result as normal/abnormal . RBC (test code = 6.75 See_Comment H [Automated 719-8) message] The sy stem which generated this [...] RDW-SD (test code = 43.2 fL 38.5-51.6 77338-5) RDW-CV (test code = 19.7 % 12.1-15.4 H 788-0) PLT (test code = 425 See_Comment H [Automated 777-3) message] The sy stem which generated this result transmitted reference range : 150 - 328 10*3/ ?L. The reference r pravin was not used to interpret this result as normal/abnormal . MPV (test code = 10.9 fL 9.8-13.0 22582-2) NRBC/100 WBC (test 0.0 See_Comment [Automat ed code = 8749939261) message] The system which generated this result transmitted reference range : 0.0 - 10.0 /100 WBCs. The refer ence range was not u sed to interpret th is result as normal/abnormal . NRBC x10^3 (test code See_Comment [Auto mated = 6587189748) message] The s ystem which generated this result transmitted reference range : 10*3/?L. The reference range was not used to interpret this result as normal/abnormal . GRAN MAT (NEUT) % 63.4 % (test code = 770-8) IMM GRAN % (test code 0.30 % = 2356319178) LYMPH % (test code = 24.0 % 736-9) MONO % (test code = 9.5 % 5905-5) EOS % (test code = 2.0 % 713-8) BASO % (test code = 0.8 % 706-2) GRAN MAT x10^3(ANC) 6.88 10*3/uL 1.99-6.95 (test code = 3462389585) IMM GRAN x10^3 (test 0.03 10*3/uL 0.00-0.06 code = 9538415821) LYMPH x10^3 (test code 2.61 10*3/uL 1.09-3.23 = 731-0) MONO x10^3 (test code 1.03 10*3/uL 0.36-1.02 H = 742-7) EOS x10^3 (test code = 0.22 10*3/uL 0.06-0.53 711-2) BASO x10^3 (test code 0.09 10*3/uL 0.01-0.09 = 704-7) Lab Interpretation Abnormal (test code = 66560-0) [facility] HEAD/BRAIN W/O [id number] 00:00:00 [facility] 1955 Sex: M Name: NAVEEN MOLINA [facility] ER : 1955 Age/S: 67 / M [address] [place] [address] Unit #: [id number] Loc: [place] [address] Phys: Taiwo Watson MD Acct: [id number] Dis Date: Status: REG ER PHONE #: [phone] Exam Date: 10/08/2022 1141 FAX #: [phone] Reason: facial injury EXAMS: CPT CODE: [id number] CT HEAD/BRAIN W/O CONT 94422 PROCEDURE INFORMATION: Exam: CT Head Without Contrast [...] radiata and centrum. The orbital globes are in tact. The lenses have been resected. There is no acute cortical infarct, parenchymal hemorrhage or intra axial mass. Sellae and para sellae structures are normal for age. There is no tonsillar ectopia.Cerebral ventricles: There is significant ventriculomegaly. Paranasal sinuses: There is a 1 cm mucous retention cyst in the left maxillary sinus. Mastoid air cells: Visualized middle ear cavity, antrumand mastoid air cells are normally aerated. Bones/joints: [...] 1 Signed Report (CONTINUED) Name: NAVEEN MOLINA [facility] : 1955 Age/S: 67 / M [address] [place] [address] Unit #: [id number] Loc: [place] [address] Phys: Taiwo Watson MD Acct: [id number] Dis Date: Status: REG ER PHONE #: [phone] Exam Date: 10/08/2022 1141 FAX #: [phone] Reason:facial injury EXAMS: CPT CODE: [id number] CT HEAD/BRAIN W/O CONT 67320 (Continued) ElectronicallySigned by Savage Phelan on 10/08/2022 at 1215 Reported and signed by: Sravan Phelan M.D. CC: Taiwo Watson MD Technologist:Meredith Knapp, RT(R)(CT) CTDI: DLP: Trnscb Date/Time: 10/08/2022 (1215) [email or web address] Orig Print D/T: S: 10/08/2022 (4346) PAGE 2 Signed Report- CT MAXIFAC W/O [id number] 00:00:00[facility] : 1955 Sex: M Name: NAVEEN MOLINA [facility] : 1955 Age/S: 67 / M [address] [place] [address] Unit #: [id number] Loc: [place] [address] Phys: Taiwo Watson MD Acct: [id number] Dis Date: Status: REG ER PHONE #: [phone] Exam Date: 10/08/2022 1141 FAX #: [phone] Reason: facial injury EXAMS: CPT CODE: [id number] CT MAXIFAC W/O CONTRAST 95293 PROCEDURE INFORMATION: Exam: CT Maxillofacial Without Contrast [...] and 0 known cardiac nuclear medicine studies inthe 12 months prior to the current study. COMPARISON: No relevant prior studies available. FINDINGS:Orbital cavities: See "Bones/joints" finding. Bones/joints: There is a subtle fracture of the tip ofthe nasal bone with perinasal soft tissue swelling. There is no fracture of the nasal spine. The septum is slightly inclined to the right. There is prominence of mucosa of the inferior nasal turbinatesand minimal sheri bullosa left middle turbinate. There is no fracture of the orbital fossa. The globes are intact. There is no retrobulbar abnormality. There is no fracture of the maxilla or zygomaticarches. There is no fracture of the mandible or dislocation of the temporomandibular joints. There is significant periodontal disease and multiple dental caries present. Paranasal sinuses: There is atte nuation bilateral maxillary ostium. Lymph nodes: Physiologic level 1 and 2 nodes are present. There is atrophy of the submandibular glands. Soft tissues: See "Bones/joints" finding. Trachea: There is no compromise of the airway. IMPRESSION: There is a subtle fracture tip of the nasal bone with minimalright perinasal/preseptal periorbital soft tissue swelling. There is no fracture of the mandible, maxilla or orbital fossa. PAGE 1 Signed Report (CONTINUED) Name: NAVEEN MOLINA [facility] :1955 Age/S: 67 / M [address] [place] [address] Unit #: [id number] Loc: [place] [address] Phys: Taiwo Watson MD Acct: [id number] Dis Date: Status: [facility] ER PHONE #: [phone] Exam Date: 10/08/2022 1141 FAX #: [phone] Reason: facial injury EXAMS: CPT CODE: [id number] CT MAXIFAC W/O CONTRAST 35509 (Continued) at 1217 Reported and signed by: Sravan Phelan M.D. CC: Taiwo Watson MD Technologist:Meredith Knapp, RT(R)(CT) CTDI: DLP: Trnscb Date/Time: 10/08/2022 (1216) [id number] Orig Print D/T: S: 10/08/2022 (3883) PAGE2 Signed Report- CT C-SPINE W/O [id number] 00:00:00[facility] : 1955 Sex: M Name: NAVEEN MOLINA [facility] : 1955 Age/S: 67 / M [address] [place] [address] Bl Unit #: [id number] Loc: [place] [address] Phys: Taiwo Watson MD Acct: [id number] Dis Date: Status: REG ER PHONE #: [phone] Exam Date: 10/08/2022 1141 FAX #: [phone] Reason: facial injury EXAMS: CPT CODE: [id number] CT C-SPINE W/O CONT 68166 PROCEDURE INFORMATION: Exam: CT Cervical Spine Without Contrast Exam date and time: 10/08/2022 11:40 AM Age: 67 years old Clinical indication: Injury or trauma;Fall; Blunt trauma; Additional info: Facial injury TECHNIQUE: Imaging protocol: Computed tomography of the cervical spine without contrast. Radiation optimization: All CT scans at this facility use atleast one of these dose optimization techniques: automated exposure control; mA and/or kV adjustmentper patient size (includes targeted exams where dose [...] minimal to moderate central canal stenosis and moderate foraminal stenosis. There is anterior spondylosis/syndesmophyte formation without [...] 1 Signed Report (CONTINUED) Name: NAVEEN [facility]OLINA [facility] : 1955 Age/S: 67 / M [address] [place] [address] Bl Unit #: [id number] Loc: [place] [address] Phys: Taiwo Watson MD Acct: [id number] Dis Date: Status: REG ER PHONE #: [phone] Exam Date: 10/08/2022 1141 FAX #: [phone] Reason: facial injury EXAMS: CPT CODE: [id number] CT C-SPINE W/O CONT 41576 (Continued) CC: Taiwo Watson MD Technologist:Meredith Knapp, RT(R)(CT) CTDI: DLP: Trnscb Date/Time: 10/08/2022 (122) [id number] Orig Print D/T: S: 10/08/2022 (1222) PAGE 2 Signed ReportFERRITIN [id number] 19:47:19 Test Item Value Reference Range Interpretation Comments FERRITIN (test code = 10.2 ng/mL 18.0-464.0 L 9965598191) DAYRON (test code = DAYRON) Biotin has been reported to cause a negative bias, interpret results relative to patient's use of biotin. Lab Interpretation (test Abnormal code = 46193-4) [facility] Center[facility] [id number] 19:18:54 Test Item Value Reference Range Interpretation Comments IRON (test code = 2688032533) 34 ug/dL 50-160 L TIBC (test code = 6477004248) 379 ug/dL 250-410 % FE SAT (test code = 2158759019) 9 % 20-50 L Lab Interpretation (test code = Abnormal 83615-8) [facility] CenterGLYCOSYLATED HEMOGLOBIN (A1C)2022-02-01 21:52:53 Test Item Value Reference Range Interpretation Comments HGB A1C (test code = 5.5 % 4.0-5.7 4548-4) DAYRON (test code = DAYRON) Reference RangesNormal: <5.7%Prediabetes: 5.7 - 6.4%Diabetes: > 6.5% Lab Interpretation (test Normal code = 87750-9) [facility] CenterLIPID PANEL (74637)(TOTAL CHOLESTEROL, TRIGLYCERIDES, HDL)2022-02-01 21:20:11 Test Item Value Reference Range Interpretation Comments CHOL (test code = 171 mg/dL 120-200 3516283130) HDL (test code = 32 mg/dL See_Comment L [Automated message] 3322142323) The system [employer] generated this result transmit zenon reference range : >=40. The refer ence range was not u sed to interpret th is result as normal/abnormal . HDLC RATIO (test code = See_Comment H [Au tomated message] 0563222360) The system [employer] generated this result transmit zenon reference range : <=5.0. The refe rence range was not u sed to interpret th is result as normal/abnormal . TRIG (test code = 85 mg/dL 30-170 7553422598) LDL CHOL (test code = 122 mg/dL See_Comment [Auto mated message] 13383-6) The system [employer] generated this result transmit zenon reference range : <=160. The refe rence range was not u sed to interpret th is result as normal/abnormal . VLDL (test code = 17 mg/dL 5-60 3770799469) Lab Interpretation (test Abnormal code = 47645-8) [facility]. METABOLIC PANEL (22102)2022-02-01 21:19:55 Test Item Value Reference Range Interpretation Comments NA (test code = 140 mmol/L 135-145 4797028565) K (test code = 4.7 mmol/L 3.5-5.0 3911412294) CL (test code = 103 mmol/L 98-108 5834153655) CO2 TOTAL (test code = 30 mmol/L 23-31 1239922759) AGAP (test code = 2-16 8327950517) BUN (test code = 15 mg/dL 7-23 4381112496) GLUCOSE (test code = 82 mg/dL 70-110 9825944862) CREATININE (test code = 1.26 mg/dL 0.60-1.25 H 7069831018) TOTAL BILI (test code = 0.5 mg/dL 0.1-1.3 7790479555) CALCIUM (test code = 9.6 mg/dL 8.6-10.6 3533376394) T PROTEIN (test code = 7.7 g/dL 6.3-8.2 9954968469) ALBUMIN (test code = 4.4 g/dL 3.5-5.0 0510303537) ALK PHOS (test code = 80 U/L 34-122 9087683984) ALTv (test code = 26 U/L 5-50 1742-6) AST(SGOT) (test code = 27 U/L 13-40 9057782252) eGFR (test code = mL/min/1.73m2 7196151358) DAYRON (test code = DAYRON) Association of [...] tests). Lab Interpretation Abnormal (test code = 43858-9) [facility] WITH [id number] 20:39:06 Test Item Value Reference Range Interpretation Comments WBC (test code = See_Comment [Automated 0490-2) message] The sy stem which generated this [...] RDW-SD (test code = 40.7 fL 38.5-51.6 48622-6) RDW-CV (test code = 18.6 % 12.1-15.4 H 788-0) PLT (test code = See_Comment H [Automated 777-3) message] The sy stem which generated this result transmitted reference range : 150 - 328 10*3/ ?L. The reference r pravin was not used to interpret this result as normal/abnormal . MPV (test code = 10.3 fL 9.8-13.0 27344-6) NRBC/100 WBC (test See_Comment [Automat ed code = 1896564349) message] The system which generated this result transmitted reference range : 0.0 - 10.0 /100 WBCs. The refer ence range was not u sed to interpret th is result as normal/abnormal . NRBC x10^3 (test code See_Comment [Auto mated = 9137200478) message] The s ystem which generated this result transmitted reference range : 10*3/?L. The reference range was not used to interpret this result as normal/abnormal . GRAN MAT (NEUT) % 57.8 % (test code = 770-8) IMM GRAN % (test code 0.20 % = 2208993884) LYMPH % (test code = 29.0 % 736-9) MONO % (test code = 9.8 % 5905-5) EOS % (test code = 2.1 % 713-8) BASO % (test code = 1.1 % 706-2) GRAN MAT x10^3(ANC) 5.82 10*3/uL 1.99-6.95 (test code = 0420466253) IMM GRAN x10^3 (test 0.00-0.06 code = 8294674982) LYMPH x10^3 (test code 2.91 10*3/uL 1.09-3.23 = 731-0) MONO x10^3 (test code 0.98 10*3/uL 0.36-1.02 = 742-7) EOS x10^3 (test code = 0.21 10*3/uL 0.06-0.53 711-2) BASO x10^3 (test code 0.11 10*3/uL 0.01-0.09 H = 704-7) Lab Interpretation Abnormal (test code = 87354-4) [facility] WITH [id number] 20:39:06 Test Item Value Reference Range Interpretation [...] RDW-SD (test code = 40.7 fL 38.5-51.6 04545-9) RDW-CV (test code = 18.6 % 12.1-15.4 H 788-0) PLT (test code = See_Comment H [Automated 777-3) message] The sy stem which generated this result transmitted reference range : 150 - 328 10*3/ ?L. The reference r pravin was not used to interpret this result as normal/abnormal . MPV (test code = 10.3 fL 9.8-13.0 64365-6) NRBC/100 WBC (test See_Comment [Automat ed code = 8469255777) message] The system which generated this result transmitted reference range : 0.0 - 10.0 /100 WBCs. The refer ence range was not u sed to interpret th is result as normal/abnormal . NRBC x10^3 (test code See_Comment [Auto mated = 9839777794) message] The s ystem which generated this result transmitted reference range : 10*3/?L. The reference range was not used to interpret this result as normal/abnormal . GRAN MAT (NEUT) % 57.8 % (test code = 770-8) IMM GRAN % (test code 0.20 % = 6554033342) LYMPH % (test code = 29.0 % 736-9) MONO % (test code = 9.8 % 5905-5) EOS % (test code = 2.1 % 713-8) BASO % (test code = 1.1 % 706-2) GRAN MAT x10^3(ANC) 5.82 10*3/uL 1.99-6.95 (test code = 9610951791) IMM GRAN x10^3 (test 0.00-0.06 code = 6492989365) LYMPH x10^3 (test code 2.91 10*3/uL 1.09-3.23 = 731-0) MONO x10^3 (test code 0.98 10*3/uL 0.36-1.02 = 742-7) EOS x10^3 (test code = 0.21 10*3/uL 0.06-0.53 711-2) BASO x10^3 (test code 0.11 10*3/uL 0.01-0.09 H = 704-7) Lab Interpretation Abnormal (test code = 23006-1) [facility]PR[facility] 13:14:00 Test Item Value Reference Range Interpretation Comments RPR SCREEN (BEAKER) (test code = Nonreactive Nonreactive 420) CT, CTANGIO [id number] 09:00:00Unlisted Reason for Exam - Click Yes and Enter Reason Below->No [facility] : 1955 Sex: MFINAL REPORT [...] Verified Date/Time: 11/05/2020 09:00:13 Mirian martinez Location: [facility] Radiology Reading Room CT, CAROTID, [id number] 09:00:00Unlisted Reason for Exam - Click Yes and Enter Reason Below->No [facility]AVE[facility] : 1955 Sex: MFINAL [...] Verified Date/Time: 11/05/2020 09:00:13 Mirian martinez Location: [facility] Radiology Reading Room HEMOGLOBIN [id number] 08:45:00 Test Item Value Reference Range Interpretation Comments HEMOGLOBIN A1C (BEAKER) (test code = 4.8 % 4.3-6.1 368) HEPATIC FUNCTION [id number] 06:56:00 Test Item Value Reference Range Interpretation [...] (test code = 21 U/L 6-55 347) Athletic Equipment Custodian ID - PIAYA LBASIC METABOLIC [id number] 06:56:00 Test Item Value Reference Range Interpretation [...] S NOT APPLICABLE FOR DIALYSIS PATIEN TS. Athletic Equipment Custodian ID - CELENA [id number] 06:56:00 Test Item Value Reference Range Interpretation Comments MAGNESIUM (BEAKER) (test code = 2.2 mg/dL 1.6-2.6 627) Athletic Equipment Custodian ID - CELENA [id number] 06:56:00 Test Item Value Reference Range Interpretation Comments PHOSPHORUS (BEAKER) (test code = 3.0 mg/dL 2.3-4.7 604) Athletic Equipment Custodian ID - CELENA LLIPID [id number] 06:56:00 Test Item Value Reference Range Interpretation [...] Borderline 130-159 High 160-189 Very High >=190 Athletic Equipment Custodian ID - CELENA LTSH/FREE T4 IF [id number] 06:45:00 Test Item Value Reference Range Interpretation Comments THYROID STIMULATING HORMONE 1.888 uIU/mL 0.350-4.940 (BEAKER) (test code = 772) Athletic Equipment Custodian ID - CELENA LVITAMIN B12 AND [id number] 06:45:00 Test Item Value Reference Range Interpretation Comments VITAMIN B12 220 pg/mL 213-816 (BEAKER) (test code = 774) FOLATE (BEAKER) 10.10 ng/mL See_Comment [Automated message] (test code = 362) The system which generated this result transmitted ref erence range: >=7.00. The reference range was not used to interpr et this result as normal/abnormal . Athletic Equipment Custodian ID - PIAYA LCBC W/PLT COUNT & AUTO [id number] 06:03:00 Test Item Value Reference Range Interpretation [...] (BEAKER) (test code = 2801) VITAMIN D, [id number] 20:58:00 Test Item Value Reference Range Interpretation Comments VIT D 25OH (test code = 29 ng/mL 25-80 32667-9) DAYRON (test code = DAYRON) Deficiency: <20 ng/mLInsufficiency : 20-24 ng/mLOptimal: 25-80 ng/mL Lab Interpretation (test Normal code = 08915-0) [facility] (A1C)2020-03-03 20:37:00 Test Item Value Reference Range Interpretation Comments HGB A1C (test code = 5.3 % 4-6 4548-4) DAYRON (test code = DAYRON) %A1C (NGSP) Interpretation (ADA)4.8-5.6 ? ? Normal or (Non-Diabetic Range)5.7-6.4 ? ? Increased Risk (Pre-Diabetic)>6.5 ?Diabetes Indicated Lab Interpretation Normal (test code = 52097-9) [facility] CenterTHYROID STIMULATING [id number] 19:10:00 Test Item Value Reference Range Interpretation Comments TSH (test code = See_Comment [Automated message] 4050361916) The system [employer] generated this result transmitted ref erence range: 0.45 - 4 .70 mIU/L. The refe rence range was not u sed to interpret this result as normal/abnor mal. Lab Interpretation (test Normal code = 54465-3) [facility] CenterPRO[facility]TIGEN [id number] 19:09:00 Test Item Value Reference Range Interpretation Comments PSA (test code = 1.36 ng/mL See_Comment [Automated [id number]) message] The system which generated this result transmitted reference range : <=4.00. The reference range was not used to interpret this result as normal/abnormal . DAYRON (test code = DAYRON) Biotin has been reported to cause a negative bias, interpret results relative to patient's use of biotin. Lab Interpretation Normal (test code = 40070-3) [facility]. METABOLIC PANEL (24403)2020-03-03 19:09:00 Test Item Value Reference Range Interpretation Comments NA (test code = 140 mmol/L 135-145 0637960519) K (test code = 4.5 mmol/L 3.5-5 6110787108) CL (test code = 98 mmol/L 98-108 2444083373) CO2 TOTAL (test code = 31 mmol/L 23-31 1150759397) AGAP (test code = 2-16 9505100247) BUN (test code = 12 mg/dL 7-23 0594868892) GLUCOSE (test code = 91 mg/dL 70-110 9734517884) CREATININE (test code = 1.16 mg/dL 0.6-1.25 6500438824) TOTAL BILI (test code = 1.0 mg/dL 0.1-1.4 8987640618) CALCIUM (test code = 10.5 mg/dL 8.6-10.6 3889466359) T PROTEIN (test code = 8.3 g/dL 6.3-8.2 H 8567134443) ALBUMIN (test code = 4.9 g/dL 3.5-5 0911797460) ALK PHOS (test code = 77 U/L 34-122 3621674639) ALTv (test code = 68 U/L 5-50 H 1742-6) AST(SGOT) (test code = 65 U/L 13-40 H 8966308561) eGFR Calculation mL/min/1.73m2 (Non-) (test code = 5979360287) eGFR Calculation mL/min/1.73m2 () (test code = 5177121903) DAYRON (test code = DAYRON) Association of [...] tests). Lab Interpretation Abnormal (test code = 53895-0) [facility] Test Item Value Reference Range Interpretation Comments APPEARANCE (test code = Clear Clear 9174977908) COLOR (test code = Yellow Yellow 2604800748) PH (test code = 4.8-8.0 1925767266) SP GRAVITY (test code = 1.003-1.030 0304212175) GLU U QUAL (test code = Normal Normal 0573461720) BLOOD (test code = Negative Negative 4858257644) KETONES (test code = Negative Negative 2779348545) PROTEIN (test code = 30 mg/dL Negative A 2887-8) UROBILIN (test code = Normal Normal 7191598436) BILIRUBIN (test code = Negative Negative 4714059302) NITRITE (test code = Negative Negative 9996234647) LEUK JAYDEN (test code = Negative Negative 9141310948) RBC/HPF (test code = See_Comment [Autom ated message] 4376273913) The system [employer] generated this result transmitted ref erence range: 0 - 3 HP F. The reference range was not used to int erpret this result as normal/abnormal . WBC/HPF (test code = See_Comment [Autom ated message] 6464511276) The system [employer] generated this result transmitted ref erence range: 0 - 5 HP F. The reference range was not used to int erpret this result as normal/abnormal . BACTERIA (test code = Negative Negative 7573750656) MUCOUS (test code = Marked Negative LPF A 4051028507) AMORPHOUS (test code = Rare Rare HPF 0251934891) HYAL CAST (test code = See_Comment H [Aut omated message] 1628383664) The system [employer] generated this result transmitted ref erence range: <=2 LPF. The reference range was not used to int erpret this result as normal/abnormal . Lab Interpretation (test Abnormal code = 66484-8) [facility]60988)(TOTAL CHOLESTEROL, TRIGLYCERIDES, HDL)2020-03-03 18:38:00 Test Item Value Reference Range Interpretation Comments CHOL (test code = 141 mg/dL 120-200 3386210876) HDL (test code = 35 mg/dL >40 L 2395931850) HDLC RATIO (test code = See_Comment [Au tomated message] 5038367614) The system [employer] generated this result transmit zenon reference range : <=5.0. The refe rence range was not u sed to interpret th is result as normal/abnormal . TRIG (test code = 163 mg/dL 30-170 2816120698) LDL CHOL (test code = 73 mg/dL See_Comment [Auto mated message] 78043-5) The system [employer] generated this result transmit zenon reference range : <=160. The refe rence range was not u sed to interpret th is result as normal/abnormal . VLDL (test code = 33 mg/dL 5-60 5265113264) Lab Interpretation (test Abnormal code = 76173-3) [facility] [id number] 18:28:00 Test Item Value Reference Range Interpretation Comments WBC (test code = 6690-2) See_Comment [A utomated message] The system [employer] generated this result transmit zenon reference range : 4.20 - 10.70 10*3/?L. The reference range was not used to interpret this result as normal/abnormal . RBC (test code = 789-8) See_Comment H [Au tomated message] The system [facility] generated this result transmit zenon reference range [...] See_Comment H [Au tomated message] The system [facility] generated this result transmit zenon reference range : 150 - 328 10*3/?L. The reference range was not used to interpret this result as normal/abnormal . MPV (test code = 10.8 fL 9.8-13 62327-7) RDW-CV (test code = 16.9 % 12.1-15.4 H 788-0) RDW-SD (test code = 37.4 fL 38.5-51.6 L 06539-6) NRBC x10^3 (test code = <0.01 See_Comment [Au tomated message] 2761582943) The system [facility] generated this result transmit zenon reference range : 10*3/?L. The reference range was not used to interpret this result as normal/abnormal . NRBC/100 WBC (test code See_Comment [Au tomated message] = 7644253689) The system [facility] generated this result transmit zenon reference range : 0.0 - 10.0 /100 WBC s. The reference r pravin was not used to interpret this result as normal/abnormal . IPF % (test code = 4588175807) Lab Interpretation (test Abnormal code = 83111-6) [facility]
[2023-02-07 11:01] LABS: Absolute Lymphocytes (CBC) 1.6 K/uL (0.7-4.9); Hematocrit 49.5 % (39.6-49.0); Lymphocytes % 15.5 % (15.3-44.8); MCV 68.9 fL (80-100); MPV 8.1 fL (7.6-11.3); Platelets 429 thou/uL (152-406); RBC Red Blood Cell Count 7.19 M/uL (4.33-5.43)
[2023-02-07 11:04] LABS: Protime INR 1.19
[2023-02-07 11:22] LABS: Magnesium 2.5 mg/dL (1.6-2.4); Potassium 3.1 mEq/L (3.5-5.1); Troponin High Sensitivity 22.2 pg/mL (<58.9)
[2023-02-07 11:31] LABS: Anisocytosis 1+; Blood Morphology Comment NOTED (NOT SEEN); Platelet Estimate ADEQ; White Blood Cell Scan OK (OK)
--- NOTE | 2023-02-07 11:33 | RAD REPORT ---
EXAM DESCRIPTION: CT - Head Brain Wo Cont - 02/07/2023 11:16 am CLINICAL HISTORY: DIZZINESS Headache, drowsiness COMPARISON: Head Brain Wo Cont dated 12/03/2022; Head angio dated 02/02/2021 TECHNIQUE: All CT scans are performed using dose optimization technique as appropriate and may inclu de automated exposure control or mA/KV adjustment according to patient size. FINDINGS: No intracranial hemorrhage, hydrocephalus or extra-axial fluid collection.Mild generalized brain atrophy is present with moderate periventricular and deep white matter chronic microvascular i schemic changes.No areas of brain edema or evidence of midline shift. The paranasal sinuses and mastoids are clear. The calvarium is intact. Vertebral atherosclerosis, gre ater on the left. IMPRESSION: No acute intracranial abnormality.
--- NOTE | 2023-02-07 11:58 | ER ---
Nurse's Notes [facility] Name: Ovidio Echols Age: 67 yrs Sex: Male : 1955 Arrival Date: 02/07/2023 Time: 10:39 Bed 4 Private MD: Diagnosis: Muscle weakness (generalized);Dizziness and giddiness;Diarrhea, unspecified Presentation: 02/07 10:47 Chief complaint: EMS states: pt has been dizzy with generalized weakness x 6 days. kc6 reports about 4 falls in the past few days. pt reports diarrhea. denies n/v or abd pain. Coronavirus screen: At this time, the client does not indicate any symptoms associated with coronavirus-19. Ebola Screen: No symptoms or risks identified at this time. Initial Sepsis Screen: Does the patient meet any 2 criteria? No. Patient's initial sepsis screen is negative. Does the patient have a suspected source of infection? No. Patient's initial sepsis screen is negative. Risk Assessment: Do you want to hurt yourself or someone else? Patient reports no desire to harm self or others. Onset of symptoms was February 07, 2023. 10:47 Method Of Arrival: EMS: [facility] kc6 10:47 Acuity: MERA 3 kc6 Triage Assessment: 10:48 General: Appears in no apparent distress. comfortable, Behavior is calm, cooperative, kc6 appropriate for age. Pain: Denies pain. EENT: No signs and/or symptoms were reported regarding the EENT system. Neuro: Level of Consciousness is awake, alert, obeys commands, Oriented to person, place, time, situation, Appropriate for age Ink Technician are equal bilaterally Moves all extremities. Full function Gait is unsteady, Speech with expressive aphasia noted, Pupils are PERRLA, Intact Reports dizziness, weakness. Cardiovascular: Denies chest pain, Heart tones S1 S2 present Capillary refill < 3 seconds. Respiratory: Airway is patent Trachea midline Respiratory effort is even, unlabored, Respiratory pattern is regular, symmetrical, Denies shortness of breath. GI: Abdomen is flat, non-distended, Bowel sounds present X 4 quads. Abd is soft and non tender X 4 quads. Reports diarrhea, Patient currently denies abdominal pain, nausea, vomiting. : No signs and/or symptoms were reported regarding the genitourinary system. Derm: No signs and/or symptoms reported regarding the dermatologic system. Skin is intact, is healthy with good turgor, Skin is pink, warm \T\ dry. Musculoskeletal: No signs and/or symptoms reported regarding the musculoskeletal system. Circulation, motion, and sensation intact. Capillary refill < 3 seconds, Range of motion: intact in all extremities. Historical: - Allergies: 10:48 No Known Allergies; kc6 - PMHx: 10:48 BPH; CVA; Hypercholesterolemia; Hypertension; kc6 - PSHx: 10:48 None; kc6 - Immunization history:: Adult Immunizations up to date. - Social history:: Smoking status: Patient denies any tobacco usage or history of. Screenin:50 [facility] ED Fall Risk Assessment (Adult) History of falling in the last 3 months, 6 including since admission Yes- single mechanical fall (1 pt) Confusion or Disorientation No (0 pts) Intoxicated or Sedated No (0 pts) Impaired Gait Yes (1 pt) Mobility Assist Device Used Yes (1 pt) Altered Elimination Yes (1 pt) Score/Fall Risk Level 3 or more points = High Risk. Abuse screen: Denies threats or abuse. Denies injuries from another. Nutritional screening: No deficits noted. Tuberculosis screening: No symptoms or risk factors identified. Assessment: 10:50 Reassessment: please see triage assessment. kc6 11:09 Reassessment: Pt covered in feces. Pt given bed bath, clean gown, and warm blanket. mb9 12:14 Reassessment: No changes from previously documented assessment. Patient and/or family mb9 updated on plan of care and expected duration. Pain level reassessed. Patient is alert, oriented x 3, equal unlabored respirations, skin warm/dry/pink. 13:30 Reassessment: No changes from previously documented assessment. Patient and/or family mb9 updated on plan of care and expected duration. Pain level reassessed. Patient is alert, oriented x 3, equal unlabored respirations, skin warm/dry/pink. 14:32 Reassessment: see [facility] for further charting. mb9 Vital Signs: 10:47 BP 143 / 99; Pulse 98; Resp 18 S; Pulse Ox 100% on R/A; Weight 92.99 kg (R); Height 5 kc6 ft. 8 in. (R); 11:51 BP 144 / 77; Pulse 84; Resp 18; Temp 98.2; Pulse Ox 98% on R/A; mb9 13:35 BP 154 / 84; Pulse 92; Resp 18; Pulse Ox 98% on R/A; mb9 10:47 Body Mass Index 31.17 (92.99 kg, 172.72 cm) kc6 ED Course: 10:40 Patient arrived in ED. 7 10:40 [facility] 7 10:40 Shawn Means MD is Attending Physician. 7 10:42 Natalee Bowman, CHANEL is Primary Nurse. mb9 10:48 Triage completed. kc6 10:48 Arm band placed on. kc6 10:50 Patient has correct armband on for positive identification. Placed in gown. Bed in low kc6 position. Call light in reach. Side rails up X2. Client placed on continuous cardiac and pulse oximetry monitoring. NIBP monitoring applied. 10:50 Patient maintains SpO2 saturation greater than 95% on room air. kc6 10:57 Inserted saline lock: 20 gauge in right antecubital area, using aseptic technique. ls5 Blood collected. 11:09 No provider procedures requiring assistance completed. mb9 11:09 EKG done, by ED staff, reviewed by Alix GALVEZ. mb9 11:17 Head Brain Wo Cont In Process Unspecified. EDMS 11:57 Claudio Kumar is Hospitalizing Provider. jh7 12:20 XRAY Chest (1 view) In Process Unspecified. EDMS 14:32 Patient admitted, IV remains in place. mb9 Administered Medications: No medications were administered Medication: 11:10 VIS not applicable for this client. mb9 Outcome: 11:57 Decision to Hospitalize by Provider. jh7 15:26 Admitted to Med/surg room 214, Report called to CHANEL Tolliver 15:26 Condition: stable 15:26 Instructed on the need for admit, 16:08 Patient left the ED. mb9 Signatures: Dispatcher [employer] EDMS Alix Preston FNP CONTACT LENS CUTTERVickie Feliciano RN RN kc6 Natalee Bowman RN RN mb9 Dom Landaverde ls5 Corrections: (The following items were deleted from the chart) 15:15 11:51 BP 144 / 77; Pulse 84bpm; Resp 18bpm; Pulse Ox 98% RA; mb9 mb9 15:19 14:32 Reassessment: see triage assessment 9 mb9
--- NOTE | 2023-02-07 11:59 | EDPHYS ---
Physician Documentation [facility] Name: Ovidio Echols Age: 67 yrs Sex: Male : 1955 Arrival Date: 02/07/2023 Time: 10:39 Bed 4 Private MD: ED Physician Shawn Means HPI: 02/07 10:47 This 67 yrs old Male presents to ER via EMS with complaints of Dizziness, General jh7 Weakness. 10:47 The patient presents with lightheadedness, feeling off balance. Onset: The jh7 symptoms/episode began/occurred 6 day(s) ago. Context: occurred at home. Associated signs and symptoms: Pertinent positives: Diarrhea, Pertinent negatives: abdominal pain, chest pain, shortness of breath. 67-year-old male presents to the ER for dizziness, generalized weakness and repeated falls. Patient reports that he has fallen 3 times within the past 2 days. He was found on the ground by EMS next to a pile of feces. The patient has a history of aphasia, hypertension, SC, and stroke. Chronic right facial droop. Reports that he has also been having diarrhea.. Historical: - Allergies: 10:48 No Known Allergies; kc6 - PMHx: 10:48 BPH; CVA; Hypercholesterolemia; Hypertension; kc6 - PSHx: 10:48 None; kc6 - Immunization history:: Adult Immunizations up to date. - Social history:: Smoking status: Patient denies any tobacco usage or history of. ROS: 10:47 Constitutional: Negative for fever, chills, and weight loss, Eyes: Negative for injury, jh7 pain, redness, and discharge, Neck: Negative for injury, pain, and swelling, Cardiovascular: Negative for chest pain, palpitations, and edema, Respiratory: Negative for shortness of breath, cough, wheezing, and pleuritic chest pain, MS/Extremity: Negative for injury and deformity, Skin: Negative for injury, rash, and discoloration, 10:47 Abdomen/GI: Positive for diarrhea, Negative for abdominal pain, nausea and vomiting, 10:47 Neuro: Positive for dizziness, weakness, Negative for altered mental status, syncope, 10:47 All other systems are negative, Exam: 10:47 Constitutional: patient awake, alert, and in no acute distress. Dried feces noted on jh7 hands. The patient appears disheveled. Head/Face: Normocephalic, atraumatic. Eyes: Pupils equal round and reactive to light, extra-ocular motions intact. Lids and lashes normal. Conjunctiva and sclera are non-icteric and not injected. Cornea within normal limits. Periorbital areas with no swelling, redness, or edema. Neck: Trachea midline, no thyromegaly or masses palpated, and no cervical lymphadenopathy. Supple, full range of motion without nuchal rigidity, or vertebral point tenderness. No Meningismus. Cardiovascular: Regular rate and rhythm with a normal S1 and S2. No gallops, murmurs, or rubs. Normal PMI, no JVD. No pulse deficits. Respiratory: Lungs have equal breath sounds bilaterally, clear to auscultation and percussion. No rales, rhonchi or wheezes noted. No increased work of breathing, no retractions or nasal flaring. Skin: Warm, dry with normal turgor. Normal color with no rashes, no lesions, and no evidence of cellulitis. 10:47 Neuro: Orientation: to person, place, time \T\ situation. Mentation: is normal, Memory: is normal, Sensation: is normal, Vital Signs: 10:47 BP 143 / 99; Pulse 98; Resp 18 S; Pulse Ox 100% on R/A; Weight 92.99 kg (R); Height 5 kc6 ft. 8 in. (R); 11:51 BP 144 / 77; Pulse 84; Resp 18; Temp 98.2; Pulse Ox 98% on R/A; mb9 13:35 BP 154 / 84; Pulse 92; Resp 18; Pulse Ox 98% on R/A; mb9 10:47 Body Mass Index 31.17 (92.99 kg, 172.72 cm) kc6 MDM: 10:40 Patient medically screened. [facility] 12:40 Differential diagnosis: cardiac arrhythmia, CVA, generalized weakness, sepsis, syncope, [facility] TIA, vertigo. Data reviewed: vital signs, nurses notes, lab test result(s), radiologic studies, CT scan, plain films. Consideration of Admission/Observation Patient was admitted/placed on observation. I considered the following discharge prescriptions or medication management in the emergency department Medications were administered in the Emergency Department. See MAR. Independent interpretation of the following test(s) in the Emergency Department EKG: See my EKG interpretation above. Care significantly affected by the following chronic conditions: Hypertension. Care significantly affected by the following Social Determinants of Health: Poor access to healthcare and/or lack of insurance, Inadequate housing. Counseling: I had a detailed discussion with the patient and/or guardian regarding the historical points, exam findings, and any diagnostic results supporting the discharge/admit diagnosis, the need for further work-up and treatment in the hospital. 02/07 10:41 Order name: Basic Metabolic Panel; Complete Time: 11:46 [facility] 02/07 10:41 Order name: CBC with Diff; Complete Time: :46 [facility] 02/07 10:41 Order name: Magnesium; Complete Time: :46 [facility] 02/07 10:41 Order name: NT PRO-BNP; Complete Time: : [facility] 02/07 10:41 Order name: PT-INR; Complete Time: :46 [facility] 02/07 10:41 Order name: Troponin HS; Complete Time: :46 [facility] 02/07 10:41 Order name: Lactate w/ 2H reflex if indic.; Complete Time: :46 [facility] 02/07 10:41 Order name: Urinalysis w/ reflexes [facility] 02/07 11:04 Order name: CBC Smear Scan; Complete Time: 11:46 [facility] 02/07 12:51 Order name: T4 Free EDFL 02/07 12:51 Order name: Thyroid Stimulating Hormone [facility] 02/07 12:51 Order name: Urinalysis w/ reflexes EDFL 02/07 12:51 Order name: Basic Metabolic Panel [facility]FL 02/07 12:51 Order name: Basic Metabolic Panel EDFL 02/07 12:51 Order name: Basic Metabolic Panel EDMS 02/07 12:51 Order name: Basic Metabolic Panel EDMS 02/07 12:51 Order name: Basic Metabolic Panel EDMS 02/07 12:51 Order name: Basic Metabolic Panel EDMS 02/07 12:51 Order name: CBC with Automated Diff EDMS 02/07 12:51 Order name: CBC with Automated Diff EDMS 02/07 12:51 Order name: CBC with Automated Diff EDMS 02/07 12:51 Order name: CBC with Automated Diff EDMS 02/07 12:51 Order name: CBC with Automated Diff EDMS 02/07 12:51 Order name: CBC with Automated Diff EDMS 02/07 12:51 Order name: Magnesium EDMS 02/07 12:51 Order name: Magnesium EDMS 02/07 12:51 Order name: Magnesium EDMS 02/07 12:51 Order name: Magnesium EDMS 02/07 12:51 Order name: Magnesium EDMS 02/07 12:51 Order name: Magnesium EDMS 02/07 12:51 Order name: Phosphorus EDMS 02/07 12:51 Order name: Phosphorus EDMS 02/07 12:51 Order name: Phosphorus EDMS 02/07 12:51 Order name: Phosphorus EDMS 02/07 12:51 Order name: Phosphorus EDMS 02/07 12:51 Order name: Phosphorus EDMS 02/07 12:51 Order name: Troponin High Sensitivity EDMS 02/07 12:51 Order name: Troponin High Sensitivity EDMS 02/07 12:51 Order name: Troponin High Sensitivity EDMS 02/07 10:41 Order name: XRAY Chest (1 view); Complete Time: 12:35 [facility] 02/07 11:12 Order name: Head Brain Wo Cont; Complete Time: 11:46 [facility] 02/07 10:41 Order name: EKG; Complete Time: 10:42 [facility] 02/07 13:16 Order name: Social Service Consult [facility] 02/07 10:41 Order name: Cardiac monitoring; Complete Time: 11:03 [facility] 02/07 10:41 Order name: EKG - Nurse/Tech; Complete Time: 10:58 [facility] 02/07 10:41 Order name: IV Saline Lock; Complete Time: 10:58 [facility] 02/07 10:41 Order name: Labs collected and sent; Complete Time: 10:58 [facility] 02/07 10:41 Order name: O2 Per Protocol; Complete Time: 10:58 [facility] 02/07 10:41 Order name: O2 Sat Monitoring; Complete Time: 10:58 [facility] EC:50 Rate is 90 beats/min. Rhythm is regular. QRS Centerpoint is Normal. NV interval is normal at [facility] 158 msec. QRS interval is normal at 94 msec. QT interval is normal at 368 msec. No Q waves. T waves are Normal. Clinical impression: NSR w/ Non-specific ST/T Changes. Administered Medications: No medications were administered Disposition Summary: 02/07/23 11:57 Hospitalization Ordered Notes: Hospitalization Status: Inpatient Admission [facility] Provider: Claudio Kumar jh7 Condition: Fair [facility] Problem: an ongoing problem [facility] Symptoms: have worsened 7 Bed/Room Type: [place] [address] Location: Telemetry/MedSurg (Inpatient)(02/07/23 15:10) ll1 Room Assignment: 214(02/07/23 15:10) ll1 Diagnosis - Muscle weakness (generalized) 7 - Dizziness and giddiness 7 - Diarrhea, unspecified [facility] Forms: - Medication Reconciliation Form 7 - SBAR form [facility] - Leadership Thank You Letter [facility] Addendum: 02/12/2023 07:49 I was immediately available for consultation during this patient's visit. I did not e c2 personally see the patient or guide the patient's care.. Signatures: Dispatcher [employer] EDMS Cristofer Recinos RN RN ll1 Alix Preston, PATENT SOLICITOR PATENT SOLICITOR 7 Vickie Topete RN RN kc6 Sirisha Berg RN RN kb3 Shawn Means MD MD ec2 Corrections: (The following items were deleted from the chart) 02/07 11:12 10:42 Head Brain W/ Wo Con+CT.RAD.BRZ ordered. EDFL EDMS 14:59 11:57 Telemetry/MedSurg (Inpatient) 7 kb3 14:59 11:57 [facility] kb3 15:10 14:59 [facility] ER HOLD kb3 ll1 15:10 14:59 ERHOLD- kb3 ll1
--- NOTE | 2023-02-07 12:34 | RAD REPORT ---
EXAM DESCRIPTION: RAD - Chest Single View - 02/07/2023 12:19 pm CLINICAL HISTORY: MALAISE Chest pain. COMPARISON: Chest Single View dated 01/04/2023; Chest Single View dated 02/02/2021; Chest Single View dated 11/04/2020; CHEST SINGLE VIEW dated 12/12/2013 FINDINGS: Portable technique limits examination quality. The lungs are mildly emphysematous but grossly clear. The heart is normal in size. No displaced fract ures. IMPRESSION: Mild COPD.
--- NOTE | 2023-02-07 12:59 | P.HP ---
Certification for Inpatient Patient admitted to: Inpatient With expected LOS: >2 Midnights Patient will require the following post-hospital care: Half-Way Practitioner: I am a practitioner with admitting privileges, knowledge of patient current condition, hospital course, and medical plan of care. Services: Services provided to patient in accordance with Admission requirements found in Title 42 Section 412.3 of the Code of Federal Regulations <Jena Quiñonez - Last Filed: 02/07/23 18:06> Patient History Date of Service: 02/07/23 Reason for admission: falling, History of Present Illness: Ovidio Echols is a pleasant 67 year old male with Pmhx of hypercholesterolemia, BOH, aphasia, HTN, [place], CVA, chronic Right facial droop presents to the ED via EMS who found him on the ground with feces next to him. He reports falling three times today and has been dizzy and lightheaded with diarrhea. Initial vitals Signs BP 143 / 99; Pulse 98; Resp 18 S; Pulse Ox 100% on R/A. Significant labs Troponin 22.3, BUN/Creatinine 26/1.26, lactic 1.6, WBC 10.4 CXR reports says the lungs are mildy emphysematous, mild COPD. Head CT reports "No intracranial hemorrhage, hydrocephalus or extra-axial fluid collection.Mild generalized brain atrophy is present with moderate periventricular and deep white matter chronic microvascular ischemic changes.No areas of brain edema or evidence of midline shift". Ovidio will be admitted to hospitalist service for further treatment. - Past Medical/Surgical History -: BPH -: CVA -: Hypertension -: Hypercholesterolemia -: Dash's palsy - Social History Alcohol use: No <Jena Quiñonez - Last Filed: 02/07/23 18:06> Date of Service: 02/07/23 <taqueria horne - Last Filed: 02/07/23 18:51> Allergies No Known Drug Allergies Allergy (Verified 02/02/21 20:41) Unknown Home Medications: Amlodipine [Norvasc*] 5 mg PO DAILY #30 tab 02/03/21 Aspirin [Aspirin EC] 81 mg PO DAILY #30 tablet. 02/03/21 Atorvastatin Calcium [Lipitor] 40 mg PO BEDTIME #30 tab 02/03/21 Clopidogrel Bisulfate [Plavix*] 75 mg PO DAILY #30 02/03/21 Tamsulosin [Flomax*] 0.4 mg PO BEDTIME #30 cap 02/03/21 Review of Systems General: Chills Gastrointestinal: Diarrhea Neurological: Weakness, Other (dizziness) <Jena Quiñonez - Last Filed: 02/07/23 18:06> Physical Examination - Physical Exam General: Alert, In no apparent distress, Oriented x3 HEENT: Other (decayed teeth) Neck: Supple, 2+ carotid pulse no bruit Respiratory: Clear to auscultation bilaterally, Normal air movement Cardiovascular: No edema, Normal pulses, Regular rate/rhythm, Normal S1 S2 Capillary refill: <2 Seconds Gastrointestinal: Normal bowel sounds, Soft and benign Musculoskeletal: No clubbing, No swelling, No contractures, No erythema Neurological: Normal strength at 5/5 x4 extr, Normal tone, Abnormal speech (aphasia) - Studies Laboratory Data (last 24 hrs) 02/07/23 02/07/23 02/07/23 10:52 10:52 10:52 WBC 10.40 Hgb 16.1 Hct 49.5 H Plt Count 429 H PT 13.1 H INR 1.19 Sodium 140 Potassium 3.1 L BUN 26 H Creatinine 1.26 Glucose 108 H Magnesium 2.5 H <Jena Quiñonez - Last Filed: 02/07/23 18:06> - Studies Laboratory Data (last 24 hrs) 02/07/23 02/07/23 02/07/23 10:52 10:52 10:52 WBC 10.40 Hgb 16.1 Hct 49.5 H Plt Count 429 H PT 13.1 H INR 1.19 Sodium 140 Potassium 3.1 L BUN 26 H Creatinine 1.26 Glucose 108 H Magnesium 2.5 H <taqueria horne - Last Filed: 02/07/23 18:51> Assessment and Plan - Plan Assessement and Plan Fluid volume deficit diarrhea Dizziness recent falls tropoin neg, serial pending EKG neg Head CT neg for acute condition BUN/creatinine 1.26 gentle IVF telemetry urine drug screen and UA pending TSH/Free T4 pending Mild COPD CXR resulted CO2 28 ABDON likely d/t dehydration BUN/creatinine 29/04.26 gentle IVF Hypokalemia K 3.0 Replace monitor in AM labs DVT ppx: heparin DNR LOS 2-3 days shelter placement Discharge Plan: Prison Plan to discharge in: 72 Hours - Advance Directives Does patient have a Living Will: No Does patient have a Durable POA for Healthcare: Yes Time Spent Managing Pts Care (In Minutes): 55 <Jena Quiñonez - Last Filed: 02/07/23 18:06> - Plan Patient seen and examined. Repeated falls Generalized weakness Diarrhea Plan: Supportive measures IV hydrate Diet as tolerated PT consult <taqueria horne - Last Filed: 02/07/23 18:51>
[2023-02-07] MEDS: NA CHLORIDE 0.9% 1,000 ML IV SCH (13:00)
[2023-02-07 14:29] VITALS: BMI 31.1
[2023-02-07] MEDS ORDERED: NA CHLORIDE 0.9% 1,000 ML ONE (14:54)
[2023-02-07] MEDS: HEPARIN 5000 UNIT/ML 1 ML VIAL SQ SCH (16:39)
[2023-02-07] MEDS ORDERED: POTASSIUM 25 MEQ EFFERV TAB PO ONE (16:59)
[2023-02-07] MEDS ORDERED: MAGNESIUM SULFATE 1 gm IVPB 1 GM/100 ML BAG IV ONE (18:02)
[2023-02-07 18:47] LABS: Barbiturates NEGATIVE (NEGATIVE); Benzodiazepines NEGATIVE (NEGATIVE); Cocaine NEGATIVE (NEGATIVE); METHAMPHETAM NEGATIVE (NEGATIVE); Opiates NEGATIVE (NEGATIVE); Phencyclidine NEGATIVE (NEGATIVE); THC Cannibis NEGATIVE (NEGATIVE)
[2023-02-07 18:48] LABS: Methadone NEGATIVE (NEGATIVE)
[2023-02-07] MEDS: TAMSULOSIN 0.4 MG SR CAP PO SCH (20:39)
[2023-02-07] MEDS ORDERED: MAGNESIUM OXIDE 400 MG TAB PO ONE (21:00)
[2023-02-07 23:21] LABS: Thyroid Stimulating Hormone 1.65 uIU/mL (0.358-3.740)
[2023-02-08] MEDS: HEPARIN 5000 UNIT/ML 1 ML VIAL SQ SCH ×3 (01:00→16:27)
[2023-02-08] MEDS: NA CHLORIDE 0.9% 1,000 ML IV SCH ×3 (02:20→17:25)
[2023-02-08 02:46] LABS: Absolute Lymphocytes (CBC) 2.6 K/uL (0.7-4.9); Hematocrit 43.6 % (39.6-49.0); Lymphocytes % 30.1 % (15.3-44.8); MPV 8.6 fL (7.6-11.3); Platelets 348 thou/uL (152-406); RBC Red Blood Cell Count 6.35 M/uL (4.33-5.43)
[2023-02-08 03:00] LABS: MCV 68.7 fL (80-100)
[2023-02-08 03:13] LABS: Albumin 3.1 g/dL (3.4-5.0); Bilirubin Direct 0.2 mg/dL (0-0.2); Bilirubin Indirect, Calculated 0.4 mg/dL (0.2-0.8); Bilirubin Total 0.6 mg/dL (0.2-1.0); Magnesium 2.2 mg/dL (1.6-2.4); Potassium 3.1 mEq/L (3.5-5.1)
[2023-02-08] MEDS ORDERED: POTASSIUM CL SA 10 MEQ TAB PO ONE ×2 (09:00→21:00)
--- NOTE | 2023-02-08 09:25 | P.PN ---
Date of Service: 02/08/23 Subjective: Has complaint of left knee pain Reports multiple falls the past couple days ROS: 10 point ROS as noted above, otherwise negative Physical exam GEN: Alert, oriented, NAD, chronic right facial droop HEENT: Normal conjunctiva, sclera anicteric CV: Regular rate and rhythm, no edema Pulm: Nonlabored respirations on room air ABD: Soft, nontender, nondistended MSK: No joint tenderness Integumentary: No rashes Neuro: Dysarthria/aphasia, normal affect Vitals reviewed Problem List Fluid volume deficit diarrhea Dizziness recent falls Serial troponins negative Head CT neg for acute condition gentle IVF telemetry PT consult, possible home health with PT versus alf facility Declined placement Mild COPD As needed nebulizer treatments ABDON likely d/t dehydration Improving, continue gentle IV fluids Hypokalemia Protocol in place VTE: Lovenox Code: Full Dispo: 24 to 48 hours, pending PT consult, recommendations Time Spent Managing Pts Care (In Minutes): 35
--- NOTE | 2023-02-08 09:32 | RAD REPORT ---
EXAM DESCRIPTION: RAD - Knee Left 3 View - 02/08/2023 9:10 am CLINICAL HISTORY: Left knee pain FINDINGS: No fracture or dislocation is seen. Prominent spur extends off the superior aspect of the patella. Mild medial joint space narrowing Vague calcific densities distal left femur may represent an infarct or enchondroma. Follow-up x-ray i n 3 months is recommended for re-evaluation
[2023-02-08] MEDS: TAMSULOSIN 0.4 MG SR CAP PO SCH (20:20)
[2023-02-08 21:05] LABS: Specific Gravity 1.022 (1.005-1.030); Urine Bacteria None Seen /HPF (<20); Urine Bilirubin NEGATIVE (Negative); Urine Blood Negative (Negative); Urine Clarity Clear (Clear); Urine Color Light-Yellow (Yellow); Urine Crystals Unidentified Few /HPF (None Seen); Urine Glucose NEGATIVE (Negative); Urine Mucus Slight /HPF (None Seen); Urine Protein NEGATIVE (Negative); Urine RBC <5 /HPF (None Seen); Urine Urobilinogen Normal (Normal); Urine pH 6.5 (5.0-7.0)
[2023-02-09] MEDS: HEPARIN 5000 UNIT/ML 1 ML VIAL SQ SCH ×3 (01:07→17:19)
[2023-02-09 03:00] LABS: Absolute Lymphocytes (CBC) 2.2 K/uL (0.7-4.9); Hematocrit 40.2 % (39.6-49.0); Lymphocytes % 28.6 % (15.3-44.8); MPV 8.7 fL (7.6-11.3); Platelets 318 thou/uL (152-406); RBC Red Blood Cell Count 5.82 M/uL (4.33-5.43)
[2023-02-09 03:11] LABS: Phosphorus 2.6 mg/dL (2.5-4.9); Potassium 3.5 mEq/L (3.5-5.1)
[2023-02-09] MEDS ORDERED: POTASSIUM 25 MEQ EFFERV TAB PO ONE (03:56)
[2023-02-09] MEDS: NA CHLORIDE 0.9% 1,000 ML IV SCH (06:45)
[2023-02-09] MEDS: carvediloL 6.25 MG TAB PO SCH ×3 (08:46→20:19)
[2023-02-09] MEDS: lisinopriL 20 MG TAB PO SCH ×2 (08:46→08:57)
--- NOTE | 2023-02-09 10:42 | P.PN ---
Date of Service: 02/09/23 Subjective: Has complaint of left knee pain Reports multiple falls the past couple days ROS: 10 point ROS as noted above, otherwise negative Physical exam GEN: Alert, oriented, NAD, chronic right facial droop HEENT: Normal conjunctiva, sclera anicteric CV: Regular rate and rhythm, no edema Pulm: Nonlabored respirations on room air ABD: Soft, nontender, nondistended MSK: No joint tenderness Integumentary: No rashes Neuro: Dysarthria/aphasia, normal affect Vitals reviewed Problem List Fluid volume deficit diarrhea Dizziness recent falls Serial troponins negative Head CT neg for acute condition telemetry Was max assist with PT will likely need SNF Mild COPD As needed nebulizer treatments ABDON likely d/t dehydration Improved, not off IVF Hypokalemia Protocol in place VTE: Lovenox Code:DNR Dispo: 24 to 48 hours, pending possible SNF/HH with PT Time Spent Managing Pts Care (In Minutes): 35
[2023-02-09] MEDS ORDERED: ACETAMINOPHEN 325 MG TABLET PO PRN (10:43)
[2023-02-09] MEDS ORDERED: HYDROCODONE/APAP 5/325 MG TAB PO ONE (10:43)
[2023-02-09] MEDS: ATORVASTATIN 40 MG TAB PO SCH (20:19)
[2023-02-09] MEDS: TAMSULOSIN 0.4 MG SR CAP PO SCH (20:19)
[2023-02-10] MEDS: HEPARIN 5000 UNIT/ML 1 ML VIAL SQ SCH ×3 (00:31→17:56)
[2023-02-10] MEDS: carvediloL 6.25 MG TAB PO SCH ×2 (09:30→20:51)
[2023-02-10] MEDS: lisinopriL 20 MG TAB PO SCH (09:31)
--- NOTE | 2023-02-10 09:50 | P.PN ---
Date of Service: 02/10/23 Subjective: Has complaint of left knee pain otherwise no complaints Working with PT ROS: 10 point ROS as noted above, otherwise negative Physical exam GEN: Alert, oriented, NAD, chronic right facial droop HEENT: Normal conjunctiva, sclera anicteric CV: Regular rate and rhythm, no edema Pulm: Nonlabored respirations on room air ABD: Soft, nontender, nondistended MSK: No joint tenderness Integumentary: No rashes Neuro: Dysarthria/aphasia, normal affect Vitals reviewed Problem List Fluid volume deficit diarrhea Dizziness recent falls Serial troponins negative Head CT neg for acute condition telemetry Was max assist with PT will likely need SNF director of consulting services have seen patient working on SNF possible [facility] Mild COPD As needed nebulizer treatments ABDON likely d/t dehydration IVF DC'd tolerating diet, renal function WNL Hypokalemia Protocol in place VTE: Lovenox Code:DNR Dispo: 24 to 48 hours, pending possible SNF/HH with PT Time Spent Managing Pts Care (In Minutes): 35
[2023-02-10 11:27] LABS: Albumin 3.1 g/dL (3.4-5.0); Bilirubin Total 0.6 mg/dL (0.2-1.0); Potassium 4.1 mEq/L (3.5-5.1); Protein, Total 7.3 g/dL (6.4-8.2)
[2023-02-10] MEDS: TAMSULOSIN 0.4 MG SR CAP PO SCH (20:57)
[2023-02-10] MEDS: ATORVASTATIN 40 MG TAB PO SCH (20:57)
[2023-02-11] MEDS: HEPARIN 5000 UNIT/ML 1 ML VIAL SQ SCH ×3 (00:25→18:05)
--- NOTE | 2023-02-11 09:18 | P.PN ---
Date of Service: 02/11/23 Subjective: Still having left knee pain otherwise no complaints Working with PT ROS: 10 point ROS as noted above, otherwise negative Physical exam GEN: Alert, oriented, NAD, chronic right facial droop HEENT: Normal conjunctiva, sclera anicteric CV: Regular rate and rhythm, no edema Pulm: Nonlabored respirations on room air ABD: Soft, nontender, nondistended MSK: No joint tenderness Integumentary: No rashes Neuro: Dysarthria/aphasia, normal affect Vitals reviewed Problem List Fluid volume deficit diarrhea Dizziness recent falls Serial troponins negative Head CT neg for acute condition telemetry Was max assist with PT will likely need SNF instructor ground services have seen patient working on SNF [facility] Added norco PRN for left knee pain Mild COPD As needed nebulizer treatments ABDON likely d/t dehydration IVF DC'd tolerating diet, renal function WNL Hypokalemia Protocol in place VTE: Lovenox Code:DNR Dispo: 24 to 48 hours, pending possible SNF/HH with PT Time Spent Managing Pts Care (In Minutes): 35 <Enrique Mendoza - Last Filed: 02/11/23 09:17> Patient seen and examined on rounds this morning Patient improving slowly occasionally feels dizzy when getting up/moving position. feels like "drunk", not so much of room spinning feels his knee isn't getting worse, but a significant reason precluding his ability to work well with PT will see how he does with pain medication prior to PT check orthostatics may need CT knee for further eval <Thai Fulton - Last Filed: 02/11/23 17:40>
[2023-02-11] MEDS: lisinopriL 20 MG TAB PO SCH (09:24)
[2023-02-11] MEDS: carvediloL 6.25 MG TAB PO SCH ×2 (09:24→20:49)
[2023-02-11] MEDS: HYDROCODONE/APAP 5/325 MG TAB PO PRN ×2 (09:48→18:08)
[2023-02-11] MEDS: ATORVASTATIN 40 MG TAB PO SCH (20:49)
[2023-02-11] MEDS: TAMSULOSIN 0.4 MG SR CAP PO SCH (20:49)
--- NOTE | 2023-02-11 21:12 | RAD REPORT ---
EXAM DESCRIPTION: CT - Knee Left Wo Con - 02/11/2023 6:28 pm CLINICAL HISTORY: left knee pain, abnormal xray COMPARISON: Knee Left 3 View dated 02/08/2023 TECHNIQUE: Thin axial noncontrast CT images of the left knee. Multiplanar reformats were generated a nd reviewed. All CT scans are performed using dose optimization technique as appropriate and may include automated exposure control or mA/KV adjustment according to patient size. FINDINGS: No acute fracture or other suspicious osseous lesion. Lobulated distal femoral metaphysis lesion with [facility] and popcorn like sclerotic margins, may represent sequelae of a bone infarc t or enchondroma. Small joint effusion. Mild degenerative changes, most pronounced along the patellofemoral compartment. Sequelae of enthesopathy at the quadriceps tendon attachment. Infrapatellar fat pad appears unremarka ble. No appreciable soft tissue fluid collections. Mild atherosclerotic arterial calcifications. IMPRESSION: No acute osseous abnormality. Small knee joint effusion. Mild degenerative changes. Lobulated distal femoral metaphysis marginal sclerotic lesion, may represent sequelae of a bone infar ct or enchondroma.
[2023-02-12] MEDS: HEPARIN 5000 UNIT/ML 1 ML VIAL SQ SCH ×3 (00:28→16:04)
[2023-02-12] MEDS: carvediloL 6.25 MG TAB PO SCH ×2 (09:01→21:25)
[2023-02-12] MEDS: lisinopriL 20 MG TAB PO SCH (09:03)
--- NOTE | 2023-02-12 09:33 | P.PN ---
Date of Service: 02/12/23 Subjective: Still having left knee pain Knee pain better with norco otherwise no complaints Working with P no acute events overnight ROS: 10 point ROS as noted above, otherwise negative Physical exam GEN: Alert, oriented, NAD, chronic right facial droop HEENT: Normal conjunctiva, sclera anicteric CV: Regular rate and rhythm, no edema Pulm: Nonlabored respirations on room air ABD: Soft, nontender, nondistended MSK: No joint tenderness Integumentary: No rashes Neuro: Dysarthria/aphasia, normal affect Vitals reviewed Problem List Fluid volume deficit diarrhea Dizziness recent falls Serial troponins negative Head CT neg for acute condition Was max assist with PT will likely need SNF clinical services specialist have seen patient working on SNF possible [facility] Left knee pain Ct left knee 02/11 Lobulated distal femoral metaphysis marginal sclerotic lesion, may represent sequelae of a bone infarct or enchondroma Discussed need for repeat imaging in three months supportive care pain medications PT Mild COPD As needed nebulizer treatments ABDON likely d/t dehydration IVF DC'd tolerating diet, renal function WNL Hypokalemia Protocol in place VTE: Lovenox Code:DNR Dispo: 24 to 48 hours, pending possible SNF/HH with PT Time Spent Managing Pts Care (In Minutes): 35
[2023-02-12] MEDS: IBUPROFEN 400 MG TAB PO SCH ×2 (11:24→21:24)
--- NOTE | 2023-02-12 14:33 | EKG ---
Test Date: 2023-02-07 Test Time: 10:50:37 Weld Fitter: MB MEASUREMENT RESULTS: Intervals: Rate: 90 CO: 158 QRSD: 94 QT: 368 QTc: 450 [place]: P: 58 CO: 158 QRS: 17 T: 59 INTERPRETIVE STATEMENTS: Normal sinus rhythm Cannot rule out Anterior infarct, age undetermined Abnormal ECG Compared to ECG 01/04/2023 08:49:01 Myocardial infarct finding now present Electronically Signed On 02-12-23 14:17:55 [employer] by Hollis Hanna
[2023-02-12] MEDS: TAMSULOSIN 0.4 MG SR CAP PO SCH (21:24)
[2023-02-12] MEDS: ATORVASTATIN 40 MG TAB PO SCH (21:25)
[2023-02-12 23:42] VITALS: O2SAT 96
[2023-02-13] MEDS: HEPARIN 5000 UNIT/ML 1 ML VIAL SQ SCH ×3 (01:05→16:22)
[2023-02-13 03:56] LABS: Potassium 4.5 mEq/L (3.5-5.1)
[2023-02-13] MEDS: IBUPROFEN 400 MG TAB PO SCH ×2 (08:33→21:00)
[2023-02-13] MEDS: carvediloL 6.25 MG TAB PO SCH ×2 (08:33→21:00)
[2023-02-13] MEDS: AMLODIPINE 5 MG TAB PO SCH (08:34)
[2023-02-13] MEDS: lisinopriL 20 MG TAB PO SCH (08:34)
--- NOTE | 2023-02-13 09:14 | P.PN ---
Date of Service: 02/13/23 Subjective: Still having left knee pain given ibuprofen and norco, improving otherwise no complaints Working with PT no acute events overnight ROS: 10 point ROS as noted above, otherwise negative Physical exam GEN: Alert, oriented, NAD, chronic right facial droop HEENT: Normal conjunctiva, sclera anicteric CV: Regular rate and rhythm, no edema Pulm: Nonlabored respirations on room air ABD: Soft, nontender, nondistended MSK: No joint tenderness Integumentary: No rashes Neuro: Dysarthria/aphasia, normal affect Vitals reviewed Problem List Fluid volume deficit diarrhea Dizziness recent falls Serial troponins negative Head CT neg for acute condition Was max assist with PT will likely need SNF enrollment services dean have seen patient working on SNF possible [facility] Left knee pain Ct left knee 02/11 Lobulated distal femoral metaphysis marginal sclerotic lesion, may represent sequelae of a bone infarct or enchondroma Discussed need for repeat imaging in three months supportive care pain medications with ibuprofen for today and PRN norco PT Mild COPD As needed nebulizer treatments ABDON likely d/t dehydration IVF DC'd tolerating diet, renal function WNL Hypokalemia Protocol in place VTE: Lovenox Code:DNR Dispo: 24 to 48 hours, pending possible SNF/HH with PT Time Spent Managing Pts Care (In Minutes): 35
[2023-02-13] MEDS: ATORVASTATIN 40 MG TAB PO SCH (21:00)
[2023-02-13] MEDS: TAMSULOSIN 0.4 MG SR CAP PO SCH (21:00)
[2023-02-14] MEDS: HEPARIN 5000 UNIT/ML 1 ML VIAL SQ SCH ×2 (00:30→09:30)
[2023-02-14] MEDS ORDERED: BISACODYL E.C. 5 MG TAB PO ONE (07:55)
[2023-02-14 09:07] VITALS: BP 151/89; TEMP 97.9
[2023-02-14] MEDS: AMLODIPINE 5 MG TAB PO SCH (09:29)
[2023-02-14] MEDS: lisinopriL 20 MG TAB PO SCH (09:29)
--- NOTE | 2023-02-14 09:29 | P.DS ---
Admission Date: 02/07/23 Discharge Date: 02/14/23 Disposition: TRANSFER TO LONGTERM Discharge Condition: GOOD Reason for Admission: falling, Brief History of Present Illness: Ovidio Echols is a pleasant 67 year old male with Pmhx of hypercholesterolemia, BOH, aphasia, HTN, [place], CVA, chronic Right facial droop presents to the ED via EMS who found him on the ground with feces next to him. He reports falling three times today and has been dizzy and lightheaded with diarrhea. Initial vitals Signs BP 143 / 99; Pulse 98; Resp 18 S; Pulse Ox 100% on R/A. Significant labs Troponin 22.3, BUN/Creatinine 26/1.26, lactic 1.6, WBC 10.4 CXR reports says the lungs are mildy emphysematous, mild COPD. Head CT reports "No intracranial hemorrhage, hydrocephalus or extra-axial fluid collection.Mild generalized brain atrophy is present with moderate periventricular and deep white matter chronic microvascular ischemic changes.No areas of brain edema or evidence of midline shift". Ovidio will be admitted to hospitalist service for further treatment. Hospital Course: Problem List Fluid volume deficit diarrhea Dizziness recent falls Left knee pain HTN COPD ABDON Hypokalemia Patient was admitted to the hospital for diarrhea, dehydration, acute kidney injury as well as left knee pain. During his hospital stay his troponins were trended and remained negative, his acute kidney injury resolved with IV fluids. He continued to complain of left knee pain ultimately a CT without contrast was performed left knee which revealed lobulated distal femoral metaphysis marginal sclerotic lesion, may represent sequela of bone infarct or endochondroma. He was treated with oral pain medications which helped to control his knee pain. He was able to work with physical therapy and given his current level ability it was recommended that he receive further therapy at SNF facility. Today he was excepted at SNF and stable for discharge in the hospital. He will need to follow-up with his PCP in 1 to 2 weeks Recommend repeat x-ray of the left knee in 3 months to further evaluate possible bone infarct versus endochondroma Vital Signs/Physical Exam: Temp Pulse Resp BP Pulse Ox 97.9 F 68 16 151/89 H 97 02/14/23 08:00 02/14/23 08:00 02/14/23 08:00 02/14/23 08:00 02/14/23 08:00 General: Alert, In no apparent distress, Oriented x3 HEENT: Atraumatic, PERRLA Neck: Supple Respiratory: Clear to auscultation bilaterally, Normal air movement Cardiovascular: Regular rate/rhythm, Normal S1 S2 Gastrointestinal: Normal bowel sounds Musculoskeletal: No tenderness Integumentary: No rashes Neurological: Normal affect, Abnormal speech (Dysarthria/aphaisa, chonic right facial droop) Laboratory Data at Discharge: WBC 7.60 thou/uL (4.3-10.9) 02/09/23 02:05 Hgb 12.8 g/dL (13.6-17.9) L 02/09/23 02:05 Hct 40.2 % (39.6-49.0) 02/09/23 02:05 Plt Count 318 thou/uL (152-406) 02/09/23 02:05 PT 13.1 SECONDS (9.5-12.5) H 02/07/23 10:52 INR 1.19 02/07/23 10:52 Sodium 138 mEq/L (136-145) 02/13/23 02:26 Potassium 4.5 mEq/L (3.5-5.1) 02/13/23 02:26 BUN 23 mg/dL (7-18) H 02/13/23 02:26 Creatinine 1.00 mg/dL (0.70-1.30) 02/13/23 02:26 Glucose 81 mg/dL (74-106) 02/13/23 02:26 Phosphorus 2.6 mg/dL (2.5-4.9) 02/09/23 02:05 Magnesium 2.0 mg/dL (1.6-2.4) 02/09/23 02:05 Total Bilirubin 0.6 mg/dL (0.2-1.0) 02/10/23 08:13 AST 29 U/L (15-37) 02/10/23 08:13 ALT 38 U/L (16-61) 02/10/23 08:13 Alkaline Phosphatase 72 U/L (45-117) 02/10/23 08:13 Home Medications: Amlodipine [Norvasc*] 5 mg PO DAILY #30 tab 02/03/21 Aspirin [Aspirin EC] 81 mg PO DAILY #30 tablet.dr 02/03/21 Atorvastatin Calcium [Lipitor] 40 mg PO BEDTIME #30 tab 02/03/21 Clopidogrel Bisulfate [Plavix*] 75 mg PO DAILY #30 02/03/21 Tamsulosin [Flomax*] 0.4 mg PO BEDTIME #30 cap 02/03/21 Hydrocodone 5/APAP 325 [[place] 5/325*] 1 tab PO Q6H PRN tab 02/14/23 lisinopriL [Prinivil*] 20 mg PO DAILY tab 02/14/23 Physician Discharge Instructions: Patient was admitted to the hospital for diarrhea, dehydration, dizziness, acute kidney injury as well as left knee pain. During his hospital stay his troponins were trended and remained negative, his acute kidney injury resolved with IV fluids. He continued to complain of left knee pain. Ultimately a CT without contrast was performed left knee which revealed lobulated distal femoral metaphysis marginal sclerotic lesion, may represent sequela of bone infarct or endochondroma. He was treated with oral pain medications which helped to control his knee pain. He was able to work with physical therapy and given his current level ability it was recommended that he receive further therapy at SNF facility. Today he was excepted at SNF and stable for discharge in the hospital. He will need to follow-up with his PCP in 1 to 2 weeks Recommend repeat x-ray of the left knee in 3 months to further evaluate possible bone infarct versus endochondroma Diet: Regular Followup: NONE,NONE [Primary Care Provider] - Time spent managing pt's care (in minutes): 35
[2023-02-14] MEDS: carvediloL 6.25 MG TAB PO SCH (09:30)
== END 2023-02-14 10:45 | DRG 683 ==
LOC: ER 10:39 → ERHOLD 12:44 → 2ND 16:05
PROVIDERS: ADMIT Internal Medicine; ATTEND Hospitalist
DX: N17.9 Acute kidney failure, unspecified (principal); R47.01 Aphasia; E86.0 Dehydration; M25.562 Pain in left knee; I10 Essential (primary) hypertension; J44.9 Chronic obstructive pulmonary disease, unspecified; E87.6 Hypokalemia; E78.00 Pure hypercholesterolemia, unspecified; G31.9 Degenerative disease of nervous system, unspecified; N40.0 Benign prostatic hyperplasia without lower urinary tract symptoms; I25.2 Old myocardial infarction; R29.810 Facial weakness; R19.7 Diarrhea, unspecified; R42 Dizziness and giddiness; R29.6 Repeated falls; Z66 Do not resuscitate; Z91.81 History of falling; Z86.73 Personal history of transient ischemic attack (TIA), and cerebral infarction without residual deficits; Z79.82 Long term (current) use of aspirin; Z79.02 Long term (current) use of antithrombotics/antiplatelets; Z79.899 Other long term (current) drug therapy; W19.XXXA Unspecified fall, initial encounter; Y93.9 Activity, unspecified; Y92.9 Unspecified place or not applicable; Y99.9 Unspecified external cause status
CPT/HCPCS: 36415; 70450; 71045; 73700; 80048; 80053; 80076; 80307; 81001; 82550; 83605; 83735; 83880; 84100; 84132; 84439; 84443; 84484; 85025; 85610; 93005; 97110; 97161; 97530; 99285; J1644; J7030

== ENCOUNTER 2024-02-07 19:14 | Emergency (ER) | payer OTHER ==
--- NOTE | 2024-02-07 19:48 | RAD REPORT ---
EXAMINATION: ONE VIEW CHEST XR CLINICAL INDICATION: esophageal FB possible;Chest pain TECHNIQUE: Frontal chest projection is submitted. Examination is limited by patient positioning and t echnique. COMPARISON: No prior exam. FINDINGS: The lungs are diffusely emphysematous but grossly clear. The heart is normal in size. No displaced fr actures identified. IMPRESSION: No acute intrathoracic abnormalities.
[2024-02-07] MEDS ORDERED: GLUCAGON 1 MG/VIAL ONE (20:08)
[2024-02-07 20:35] LABS: PT Prothrombin Time 12.3 SECONDS (9.4-12.5); Protime INR 1.1
[2024-02-07 20:39] LABS: Absolute Basophils 0.1 K/uL (0-0.5); Absolute Eosinophils 0.1 K/uL (0-0.5); Absolute Lymphocytes (CBC) 2.2 K/uL (0.7-4.9); Absolute Neutrophil 10.5 K/uL (1.8-8.0); Basophils % 0.5 % (0-1.3); Eosinophils % 0.9 % (0-4.4); Hematocrit 44.7 % (39.6-49.0); Hemoglobin 14.1 g/dL (13.6-17.9); Lymphocytes % 15.8 % (15.3-44.8); MCH 22.7 pg (27.0-35.0); MCHC 31.5 g/dL (32.0-36.0); MCV 72.1 fL (80-100); MPV 8.5 fL (7.6-11.3); Neutrophils % 75.8 % (41.7-73.7); Nucleated Red Blood Cells % 0.1 % (0-0); Platelets 338 thou/uL (152-406); Red Cell Distribution Width 15.7 % (12.1-15.2)
[2024-02-07 20:55] LABS: Albumin 3.8 g/dL (3.4-5.0); Anion Gap 8.3 mEq/L (5.0-15.0); Bilirubin Direct 0.2 mg/dL (0-0.2); Bilirubin Indirect, Calculated 0.4 mg/dL (0.2-0.8); Bilirubin Total 0.6 mg/dL (0.2-1.0); Globulin 3.7 g/dL (2.3-3.5); Magnesium 2.2 mg/dL (1.6-2.4); Potassium 3.3 mEq/L (3.5-5.1); Protein, Total 7.5 g/dL (6.4-8.2)
--- NOTE | 2024-02-07 23:58 | EDPHYS ---
Physician Documentation [facility] Name: Ovidio Echols Age: 68 yrs Sex: Male : 1955 Arrival Date: 02/07/2024 Time: 19:14 Bed 13 Private MD: ED Physician Berry Gomez HPI: 02/06 19:29 This 68 yrs old Male presents to ER via EMS with complaints of possible food impaction. sp3 19:39 68-year-old male with history of CVA, hyperlipidemia, hypertension, Dash's palsy sp3 presents to the ED with chief complaint "food impaction". Patient was eating a hamburger at the living facility where he states he got stuck canal he cannot maintain his saliva and anything he takes p.o. comes back up. He denies any significant pain however does feel like there is something stuck there. Denies any abdominal pain, back pain, bleeding or any other signs or symptoms on ROS at this time.. Historical: - Allergies: 19:22 No Known Allergies; bp - PMHx: 19:22 CVA; Hypercholesterolemia; BPH; Hypertension; bells palsy (Hypertension); bp - Immunization history:: Adult Immunizations up to date. - Infectious Disease History:: Denies. - Social history:: The patient is unemployed. - Family history:: not pertinent. ROS: 19:39 Constitutional: Negative for fever, chills, and weight loss, Eyes: Negative for injury, sp3 pain, redness, and discharge, Neck: Negative for injury, pain, and swelling, Cardiovascular: Negative for chest pain, palpitations, and edema, Respiratory: Negative for shortness of breath, cough, wheezing, and pleuritic chest pain, Back: Negative for injury and pain, MS/Extremity: Negative for injury and deformity, Skin: Negative for injury, rash, and discoloration, Neuro: Negative for headache, weakness, numbness, tingling, and seizure, Psych: Negative for depression, anxiety, suicide ideation, homicidal ideation, and hallucinations, Allergy/Immunology: Negative for hives, rash, and allergies, 19:39 All other systems are negative, Exam: 19:40 Constitutional: This is a well developed, well nourished patient who is awake, alert, sp3 and in no acute distress. Head/Face: Normocephalic, atraumatic. Eyes: Pupils equal round and reactive to light, extra-ocular motions intact. Lids and lashes normal. Conjunctiva and sclera are non-icteric and not injected. Cornea within normal limits. Periorbital areas with no swelling, redness, or edema. ENT: Nares patent. No nasal discharge, no septal abnormalities noted. External auditory canals are clear. Oropharynx with no redness, swelling, or masses, exudates, or evidence of obstruction, uvula midline. Mucous membranes moist. Neck: Trachea midline, no thyromegaly or masses palpated, and no cervical lymphadenopathy. Supple, full range of motion without nuchal rigidity, or vertebral point tenderness. No Meningismus. Cardiovascular: Regular rate and rhythm with a normal S1 and S2. No gallops, murmurs, or rubs. Normal PMI, no JVD. No pulse deficits. Respiratory: Lungs have equal breath sounds bilaterally, clear to auscultation and percussion. No rales, rhonchi or wheezes noted. No increased work of breathing, no retractions or nasal flaring. Back: No spinal tenderness. No costovertebral tenderness. Full range of motion. Skin: Warm, dry with normal turgor. Normal color with no rashes, no lesions, and no evidence of cellulitis. MS/ Extremity: Pulses equal, no cyanosis. Neurovascular intact. Full, normal range of motion. Neuro: Awake and alert, GCS 15, oriented to person, place, time, and situation. Cranial nerves II-XII grossly intact. Motor strength 5/5 in all extremities. Sensory grossly intact. Cerebellar exam normal. Normal gait. Psych: Awake, alert, with orientation to person, place and time. Behavior, mood, and affect are within normal limits. 19:40 Chest/axilla: Patient points at pain at the mid chest distally. No abdominal pain. Patient not currently maintaining oral secretions.. 19:46 ECG was reviewed by the Attending Physician. EKG demonstrates normal sinus rhythm at 78 sp3 bpm with normal intervals, normal QRS, normal axis, nonspecific diffuse ST/T changes without evidence of acute ischemia. Vital Signs: 19:56 BP 185 / 118; Pulse 68; Resp 16; Temp 99; Pulse Ox 100% on R/A; Weight 97.52 kg; Height jb4 6 ft. 0 in. ; Pain 6/10; 21:30 BP 190 / 97; Pulse 85; Resp 16; Pulse Ox 98% on R/A; jb4 23:15 BP 164 / 104; Pulse 79; Resp 16; Pulse Ox 96% on R/A; jb4 02/07 00:15 BP 165 / 96; Pulse 83; Resp 16; Pulse Ox 96% on R/A; jb4 01:07 BP 122 / 73; Pulse 83; Resp 16; Pulse Ox 92% on R/A; jb4 02/06 19:56 Body Mass Index 29.16 (97.52 kg, 182.88 cm) 4 02/06 19:56 Pain Scale: Adult jb4 MDM: 02/06 19:20 Medical Screening Exam initiated sp3 19:43 Data reviewed: vital signs, nurses notes. ED course: Patient was given glucagon 1 mg IM sp3 to attempt to dilate lower esophageal region. If food impaction does not resolve with this, patient will need GI consultation and transfer. Patient will be signed out to nighttime physician for final reevaluation and disposition.. 23:55 ED course: CLINICAL HISTORY: Esophageal food impaction. COMPARISON: None. TECHNIQUE: CT sp4 of the chest was performed without contrast. Axial, coronal, and sagittal reconstructions were created and sent to PACS. This exam was performed according to our departmental dose-optimization program, which includes automated exposure control, adjustment of the mA and/or kV according to patient size and/or use of iterative reconstruction technique. FINDINGS: Lungs and pleura: No pulmonary consolidation. No pleural effusion. No pneumothorax. Few tiny metallic foci in the right upper lobe. Minimal suspected atelectasis versus scarring in the lateral right lower lobe. Mediastinum and neck: No mediastinal lymphadenopathy by CT size criteria. Unremarkable appearance of the thyroid gland. Cardiovascular: No cardiomegaly or pericardial effusion. No thoracic aortic aneurysm. Abdomen: Focal region of ingested material in the proximal esophagus measuring 1.7 x 2.3 x 3.8 cm (AP x TV x CC). No free air or fluid collections. Partially imaged small left renal calculus. Musculoskeletal: No concerning osseous abnormality. IMPRESSION: Focal region of ingested material in the proximal esophagus, concerning for impacted food bolus. . 23:58 ED course: CLINICAL HISTORY: Esophageal food impaction. COMPARISON: None. TECHNIQUE: CT sp4 of the chest was performed without contrast. Axial, coronal, and sagittal reconstructions were created and sent to PACS. This exam was performed according to our departmental dose-optimization program, which includes automated exposure control, adjustment of the mA and/or kV according to patient size and/or use of iterative reconstruction technique. FINDINGS: Lungs and pleura: No pulmonary consolidation. No pleural effusion. No pneumothorax. Few tiny metallic foci in the right upper lobe. Minimal suspected atelectasis versus scarring in the lateral right lower lobe. Mediastinum and neck: No mediastinal lymphadenopathy by CT size criteria. Unremarkable appearance of the thyroid gland. Cardiovascular: No cardiomegaly or pericardial effusion. No thoracic aortic aneurysm. Abdomen: Focal region of ingested material in the proximal esophagus measuring 1.7 x 2.3 x 3.8 cm (AP x TV x CC). No free air or fluid collections. Partially imaged small left renal calculus. Musculoskeletal: No concerning osseous abnormality. IMPRESSION: Focal region of ingested material in the proximal esophagus, concerning for impacted food bolus.. 02/06 19:21 Order name: Basic Metabolic Panel; Complete Time: 22:50 3 02/06 19:21 Order name: CBC with Diff; Complete Time: 22:50 3 02/06 19:21 Order name: LFT's; Complete Time: 22:50 3 02/06 19:21 Order name: Magnesium; Complete Time: 22:50 3 02/06 19:21 Order name: NT PRO-BNP; Complete Time: 22:50 3 02/06 19:21 Order name: Troponin HS; Complete Time: 22:50 3 02/06 19:30 Order name: PT-INR; Complete Time: 22:50 3 02/06 19:21 Order name: XRAY Chest (1 view); Complete Time: 19:50 3 02/06 20:55 Order name: CT Chest Wo Con sp4 02/06 19:21 Order name: EKG; Complete Time: 19:21 3 02/06 19:21 Order name: Cardiac monitoring; Complete Time: 19:56 sp3 02/06 19:21 Order name: EKG - Nurse/Tech; Complete Time: 19:55 3 02/06 19:21 Order name: IV Saline Lock; Complete Time: 20:22 3 02/06 19:21 Order name: Labs collected and sent; Complete Time: 20:22 3 02/06 19:21 Order name: O2 Per Protocol; Complete Time: 19:55 sp3 02/06 19:21 Order name: O2 Sat Monitoring; Complete Time: 19:55 sp3 02/06 19:21 Order name: NPO; Complete Time: 19:23 sp3 Administered Medications: 20:22 Drug: GlucaGen IM 1 mg IM once Route: IM; Site: right deltoid; jb4 21:00 Follow up: Response: No adverse reaction; No change in condition jb4 02/07 00:27 Drug: Ativan IVP 1 mg IVP once Route: IVP; Site: left forearm; jb4 02:00 Follow up: Response: No adverse reaction; Marked relief of symptoms jb4 00:27 Drug: NS 0.9% IV 1000 ml IV at 125 ml/hr continuous Route: IV; Rate: 125 ml/hr; Site: jb4 left forearm; 02:00 Follow up: Response: No adverse reaction; IV Status: Infusion continued upon transfer jb4 00:28 Drug: morphine IVP or IV 4 mg IVP once over 4 mins Route: IVP; Infused Over: 4 mins; jb4 Site: left forearm; 02:00 Follow up: Response: No adverse reaction; Marked relief of symptoms jb4 00:28 Drug: metoCLOPramide IVP 10 mg IVP once; over 1 to 2 minutes Route: IVP; Site: left jb4 forearm; 02:00 Follow up: Response: No adverse reaction; Marked relief of symptoms jb4 Disposition Summary: 02/07/24 23:58 Transfer Ordered Notes: Transfer Location: [facility] sp4 Reason: Higher level of care sp4 Condition: Stable sp4 Problem: new sp4 Symptoms: have improved sp4 Accepting Physician: Attending (02/08/24 02:21) jb4 Diagnosis - Esophageal food bolus impaction , acute , initial encounter sp4 Forms: - Medication Reconciliation Form sp4 - SBAR form sp4 Signatures: Dispatcher [employer] Adrien Huang RN RN jb4 Franky Singh RN RN bp Patel, Setul, MD MD sp3 Berry Gomez MD MD sp4 Corrections: (The following items were deleted from the chart) 02:21 02/06 23:58 Attending MD misty burton4
--- NOTE | 2024-02-07 23:58 | ER ---
Nurse's Notes [facility] Name: Ovidio Echols Age: 68 yrs Sex: Male : 1955 Arrival Date: 02/07/2024 Time: 19:14 Bed 13 Private MD: Diagnosis: Esophageal food bolus impaction , acute , initial encounter Presentation: 02/06 19:20 Chief complaint: EMS states: [facility] called due to pt reporting food bp bolus after eating a hamburger at around 1700. Pt is unable to drink water, immediately vomits and feels like the food is still stuck. Coronavirus screen: At this time, the client does not indicate any symptoms associated with coronavirus-19. Ebola Screen: No symptoms or risks identified at this time. Initial Sepsis Screen: Does the patient meet any 2 criteria? No. Patient's initial sepsis screen is negative. Does the patient have a suspected source of infection? No. Patient's initial sepsis screen is negative. Risk Assessment: Do you want to hurt yourself or someone else? Patient reports no desire to harm self or others. Onset of symptoms was February 07, 2024. Transition of care: patient was not received from another setting of care. 19:20 Method Of Arrival: EMS: [facility] bp 19:20 Acuity: [facility] 3 bp Historical: - Allergies: 19:22 No Known Allergies; bp - PMHx: 19:22 CVA; Hypercholesterolemia; BPH; Hypertension; bells palsy (Hypertension); bp - Immunization history:: Adult Immunizations up to date. - Infectious Disease History:: Denies. - Social history:: The patient is unemployed. - Family history:: not pertinent. Screenin/06 02:19 [facility] ED Fall Risk Assessment (Adult) History of falling in the last 3 months, jb4 including since admission No falls in past 3 months (0 pts) Confusion or Disorientation No (0 pts) Intoxicated or Sedated No (0 pts) Impaired Gait No (0 pts) Mobility Assist Device Used No (0 pt) Altered Elimination No (0 pt) Score/Fall Risk Level 0 - 2 = Low Risk Oriented to surroundings, Maintained a safe environment. Abuse screen: Denies threats or abuse. Nutritional screening: No deficits noted. Tuberculosis screening: No symptoms or risk factors identified. Assessment: 02/06 19:57 General: Appears in no apparent distress. uncomfortable, Behavior is calm, cooperative. jb4 Pain: Complains of pain in thyroid cartilage Pain does not radiate. Pain currently is 6 out of 10 on a pain scale. Neuro: Level of Consciousness is awake, alert, obeys commands, Oriented to person, place, time, situation, Speech is slurred, Pt reports this as normal due to diagnoses of bells palsy and prior stroke.. Cardiovascular: Patient's skin is warm and dry. Respiratory: Airway is patent Respiratory effort is even, unlabored, Respiratory pattern is regular, symmetrical. Derm: Skin is intact, Skin is pink, warm \T\ dry. 20:32 Reassessment: Patient appears in no apparent distress at this time. Patient and/or jb4 family updated on plan of care and expected duration. Pain level reassessed. Patient is alert, oriented x 3, equal unlabored respirations, skin warm/dry/pink. 22:00 Reassessment: Patient appears in no apparent distress at this time. Patient and/or jb4 family updated on plan of care and expected duration. Pain level reassessed. Patient is alert, oriented x 3, equal unlabored respirations, skin warm/dry/pink. 23:32 Reassessment: Patient appears in no apparent distress at this time. Patient and/or jb4 family updated on plan of care and expected duration. Pain level reassessed. Patient is alert, oriented x 3, equal unlabored respirations, skin warm/dry/pink. 02/07 01:06 Reassessment: Patient appears in no apparent distress at this time. Patient and/or jb4 family updated on plan of care and expected duration. Pain level reassessed. Patient is alert, oriented x 3, equal unlabored respirations, skin warm/dry/pink. Vital Signs: 02/06 19:56 BP 185 / 118; Pulse 68; Resp 16; Temp 99; Pulse Ox 100% on R/A; Weight 97.52 kg; Height jb4 6 ft. 0 in. ; Pain 09/11; 21:30 BP 190 / 97; Pulse 85; Resp 16; Pulse Ox 98% on R/A; jb4 23:15 BP 164 / 104; Pulse 79; Resp 16; Pulse Ox 96% on R/A; jb4 02/07 00:15 BP 165 / 96; Pulse 83; Resp 16; Pulse Ox 96% on R/A; jb4 01:07 BP 122 / 73; Pulse 83; Resp 16; Pulse Ox 92% on R/A; jb4 02/06 19:56 Body Mass Index 29.16 (97.52 kg, 182.88 cm) jb4 02/06 19:56 Pain Scale: Adult [facility] ED Course: 02/06 19:20 Patient arrived in ED. bp 19:20 Jeffrey Wolf MD is Attending Physician. sp3 19:21 Triage completed. bp 19:22 Arm band placed on right wrist. bp 19:35 XRAY Chest (1 view) In Process Unspecified. EDMS 20:03 Inserted saline lock: 18 gauge in left forearm, using aseptic technique. jb4 20:55 Attending Physician role handed off by Jeffrey Wolf MD sp4 20:55 Berry Gomez MD is Attending Physician. sp4 23:10 CT Chest Wo Con In Process Unspecified. EDMS 02/07 00:19 [facility] called to initiate transfer, spoke with Janay. ty 01:06 Adrien Ruiz, RN is Primary Nurse. jb4 01:35 [facility] called for PT transport, ETA 15 minutes. ty 02:19 Patient has correct armband on for positive identification. Bed in low position. Call jb4 light in reach. Side rails up X 1. Provided Education on: need for transfer. 02:19 No provider procedures requiring assistance completed. Patient transferred, IV remains jb4 in place. Administered Medications: 02/06 20:22 Drug: GlucaGen IM 1 mg IM once Route: IM; Site: right deltoid; jb4 21:00 Follow up: Response: No adverse reaction; No change in condition 4 02/07 00:27 Drug: Ativan IVP 1 mg IVP once Route: IVP; Site: left forearm; jb4 02:00 Follow up: Response: No adverse reaction; Marked relief of symptoms jb4 00:27 Drug: NS 0.9% IV 1000 ml IV at 125 ml/hr continuous Route: IV; Rate: 125 ml/hr; Site: jb left forearm; 02:00 Follow up: Response: No adverse reaction; IV Status: Infusion continued upon transfer 4 00:28 Drug: morphine IVP or IV 4 mg IVP once over 4 mins Route: IVP; Infused Over: 4 mins; jb4 Site: left forearm; 02:00 Follow up: Response: No adverse reaction; Marked relief of symptoms jb4 00:28 Drug: metoCLOPramide IVP 10 mg IVP once; over 1 to 2 minutes Route: IVP; Site: left jb4 forearm; 02:00 Follow up: Response: No adverse reaction; Marked relief of symptoms jb4 Outcome: 02/06 23:58 ER care complete, transfer ordered by MD. jay 02/07 02:19 Transferred by ground EMS Transfer form completed. X-rays sent w/ patient. Note: St jb4 [facility] [place] Condition: stable Discharge instructions given to patient, Instructed on the need for transfer, Demonstrated understanding of instructions, 02:21 Patient left the ED. jb4 Signatures: Dispatcher [employer] EDAdrien Esposito RN RN jb4 Franky Singh RN RN bp Patel, Setul, MD MD sp3 Berry Gomez MD MD sp4 Maurice Garza
[2024-02-08] MEDS ORDERED: LORazepam 2 MG/ML VIAL ONE (00:12)
[2024-02-08] MEDS ORDERED: METOCLOPRAMIDE 10 MG/2mL INJ ONE (00:13)
[2024-02-08] MEDS ORDERED: MORPHINE 4 MG/ML SYR ONE (00:14)
[2024-02-08] MEDS ORDERED: NA CHLORIDE 0.9% 1,000 ML ONE (00:14)
[2024-02-08 03:06] VITALS: BP 122/73; TEMP 99; O2SAT 92
--- NOTE | 2024-02-08 03:55 | RAD REPORT ---
CLINICAL HISTORY: Esophageal food impaction. COMPARISON: None. TECHNIQUE: CT of the chest was performed without contrast. Axial, coronal, and sagittal reconstructio ns were created and sent to PACS. This exam was performed according to our departmental dose-optimization program, which includes autom ated exposure control, adjustment of the mA and/or kV according to patient size and/or use of iterative reconstruction technique. FINDINGS: Lungs and pleura: No pulmonary consolidation. No pleural effusion. No pneumothorax. Few tiny metallic foci in the right upper lobe. Minimal suspected atelectasis versus scarring in the lateral right lower lobe. Mediastinum and neck: No mediastinal lymphadenopathy by CT size criteria. Unremarkable appearance of the thyroid gland. Cardiovascular: No cardiomegaly or pericardial effusion. No thoracic aortic aneurysm. Abdomen: Focal region of ingested material in the proximal esophagus measuring 1.7 x 2.3 x 3.8 cm (AP x TV x CC). No free air or fluid collections. Partially imaged small left renal calculus. Musculoskeletal: No concerning osseous abnormality. IMPRESSION: Focal region of ingested material in the proximal esophagus, concerning for impacted food bolus. Electronically signed by: Nerissa Torres MD 02/07/2024 11:43 PM [facility] Due to temporary technical issues with the PACS/[employer] reporting system, reports are being mejia d by the in-house radiologist without review as a courtesy to ensure prompt reporting the interpreting radiologist is fully responsible for the content of the report. Transcribed Date/Time: 02/08/2024 3:55 AM
== END 2024-02-08 02:21 | disposition short-term general hospital (02) ==
LOC: ER 19:14
DX: T18.120A Food in esophagus causing compression of trachea, initial encounter (principal); I10 Essential (primary) hypertension; E78.00 Pure hypercholesterolemia, unspecified; Z86.73 Personal history of transient ischemic attack (TIA), and cerebral infarction without residual deficits
CPT/HCPCS: 85025; 80048; 36415; 83735; 85610; 80076; 84484; 83880; 71250; 71045; J1610; J2765; J7030